=== PATIENT | male | born 1945 | race Caucasian/White ===

== ENCOUNTER 2019-12-17 09:09 | Outpatient (REF) | payer MEDICARE, SELFPAY | END 2019-12-17 09:10 | disposition home or self-care (01) | LOC: HO.LNP 09:09 | PROVIDERS: Visit Provider Internal Medicine | DX: E11.9 Type 2 diabetes mellitus without complications (principal); Z79.899 Other long term (current) drug therapy | CPT/HCPCS: 82947 ==

== ENCOUNTER → 2019-12-17 15:10 | Outpatient (BNVA) | payer MEDICARE, SELFPAY | PROVIDERS: PCP Internal Medicine; Referring Provider Internal Medicine; Visit Provider Internal Medicine | DX: E11.40 Type 2 diabetes mellitus with diabetic neuropathy, unspecified (principal); E11.21 Type 2 diabetes mellitus with diabetic nephropathy; I10 Essential (primary) hypertension; E78.5 Hyperlipidemia, unspecified; R60.0 Localized edema; Z79.84 Long term (current) use of oral hypoglycemic drugs; Z79.899 Other long term (current) drug therapy | CPT/HCPCS: 82947; 99204 ==

== ENCOUNTER 2019-12-22 11:42 | Outpatient (REF) | payer MEDICARE, SELFPAY ==
[2019-12-22 12:47] LABS: INTERNATIONAL NORM RATIO 2.7 (0.9-1.1)
[2019-12-22 14:17] LABS: Alanine Aminotransferase 23 U/L (0-40); Albumin Level 4.1 g/dL (3.5-5.0); Alkaline Phosphatase 68 U/L (39-117); Anion Gap 9 (12-20); Aspartate Amino Transferase 17 U/L (5-37); Bilirubin Total 0.5 mg/dL (0.0-1.0); Blood Urea Nitrogen 18 mg/dL (9-16); Calcium 8.9 mg/dL (8.4-10.2); Carbon Dioxide 37 mmol/L (22-29); Chloride 97 mmol/L (96-108); Estimated Glomerular Filt Rate > 60; Glucose Random 247 mg/dL (60-115); Potassium 4.1 mmol/l (3.3-5.1); Sodium 139 mmol/L (135-145); Total Protein 6.7 g/dL (6.5-8.0)
== END 2019-12-22 11:43 | disposition home or self-care (01) ==
LOC: HO.LAB 11:42
PROVIDERS: Internal Medicine; PCP Internal Medicine; Visit Provider Internal Medicine
DX: I48.0 Paroxysmal atrial fibrillation (principal); Z79.01 Long term (current) use of anticoagulants
CPT/HCPCS: 36415; 80053; 85610

== ENCOUNTER 2020-01-04 10:59 | Outpatient (REF) | payer MEDICARE, SELFPAY ==
[2020-01-04 12:33] LABS: INTERNATIONAL NORM RATIO 2.2 (0.9-1.1); Prothrombin Time 26.8 SEC (10.8-13.0)
[2020-01-04 12:39] LABS: Alanine Aminotransferase 17 U/L (0-40); Albumin Level 4.3 g/dL (3.5-5.0); Alkaline Phosphatase 66 U/L (39-117); Anion Gap 13 (12-20); Aspartate Amino Transferase 16 U/L (5-37); Bilirubin Total 0.3 mg/dL (0.0-1.0); Blood Urea Nitrogen 23 mg/dL (9-16); Calcium 9.4 mg/dL (8.4-10.2); Carbon Dioxide 33 mmol/L (22-29); Chloride 99 mmol/L (96-108); Estimated Glomerular Filt Rate > 60; Glucose Random 188 mg/dL (60-115); Potassium 4.6 mmol/l (3.3-5.1); Sodium 140 mmol/L (135-145); Total Protein 7.2 g/dL (6.5-8.0)
== END 2020-01-04 11:00 | disposition home or self-care (01) ==
LOC: HO.LABR 10:59
PROVIDERS: Internal Medicine; PCP Internal Medicine; Visit Provider Internal Medicine
DX: I48.0 Paroxysmal atrial fibrillation (principal); Z79.01 Long term (current) use of anticoagulants
CPT/HCPCS: 36415; 80053; 85610

== ENCOUNTER → 2020-01-28 13:05 | Outpatient (BNVA) | payer MEDICARE, SELFPAY | PROVIDERS: PCP Internal Medicine; Visit Provider Surgery Vascular Surgery | DX: I83.12 Varicose veins of left lower extremity with inflammation (principal); E11.40 Type 2 diabetes mellitus with diabetic neuropathy, unspecified | CPT/HCPCS: 99202 ==

== ENCOUNTER → 2020-02-02 10:56 | Outpatient (BNVA) | payer MEDICARE, SELFPAY | PROVIDERS: PCP Internal Medicine; Referring Provider Internal Medicine; Visit Provider Dietitian, Registered | DX: Z76.89 Persons encountering health services in other specified circumstances (principal) ==

== ENCOUNTER 2020-02-03 10:18 | Outpatient (REF) | payer MEDICARE, SELFPAY ==
--- NOTE | 2020-02-03 10:23 | US_ITS ---
EXAMINATION: RIGHT and LEFT LOWER EXTREMITY VENOUS ULTRASOUND (Reflux Exam) CLINICAL INDICATION: leg pain and varicose veins. COMPARISON: None. TECHNIQUE: Color flow triplex imaging and compression Doppler was performed to evaluate both the deep and the superficial systems bilaterally. To evaluate the superficial system, the examination was performed in the upright position. Color-flow Doppler ultrasound and compression ultrasound were utilized. In addition, maneuvers were utilized to demonstrate reflux. FINDINGS: 1. DEEP VENOUS ULTRASOUND OF THE RIGHT LOWER EXTREMITY: Respiratory variation, normal compression and augmented flow are noted in the right common femoral vein as well as the right popliteal vein and there is no evidence of deep venous thrombosis at these locations. There is no evidence of reflux in the deep system in either the common femoral vein or the popliteal vein. There is no evidence of a Ruiz's cyst. 2. SUPERFICIAL ULTRASOUND WITH DOPPLER OF RIGHT LOWER EXTREMITY: The right great saphenous vein at the saphenofemoral junction measures 8 mm, at the mid thigh 5 mm, vcvsa-kag-kmax 5 mm, ohori-cyf-uixi 5 mm, at mid calf 3 mm and at the ankle measures 3 mm. There is greater than 2.6 seconds reflux in the right greater saphenous vein at the proximal thigh and below the knee and greater than 2 second reflux in the mid calf. The right small saphenous vein measures 2-4 mm. There is greater than 3 seconds reflux in the mid calf. There is a game artist in the mid calf that measures 4 mm and does not demonstrate reflux. There are varicosities in the mid thigh and proximal calf that measures 3 mm and demonstrate between 2.3 and 2.9 seconds reflux. There is a varicosity in the distal calf off the lesser saphenous vein that measures 4 mm and does not demonstrate reflux. 3. DEEP VENOUS ULTRASOUND OF THE LEFT LOWER EXTREMITY: Respiratory variation, normal compression and augmented flow are noted in the left common femoral vein as well as the left popliteal vein and there is no evidence of deep venous thrombosis at these locations. There is no evidence of reflux in the deep system in either the common femoral vein or the popliteal vein. . There is no evidence of a Ruiz's cyst. 4. SUPERFICIAL ULTRASOUND WITH DOPPLER OF LEFT LOWER EXTREMITY: Left great saphenous vein at the saphenofemoral junction measures 8 mm, at the mid thigh 6 mm, ejpfx-dps-znyn 6 mm, bxxsz-dld-jjch 5 mm, at mid calf for mm and at the ankle measures 3 mm. There is left greater saphenous vein reflux from the saphenofemoral junction to the knee measuring maximum 3 seconds at the knee. The left small saphenous vein measures 2-4 mm and shows no reflux. There is a varicosity in the distal I measures 4 mm and does not demonstrate reflux. There are varicosities at the knee and proximal calf measuring 5 and 3 mm thick the straight greater than 3 seconds reflux. There is a varicosity in the mid calf arising from the lesser saphenous vein that measures 4 mm and does not demonstrate reflux. There is shotty bilateral inguinal lymphadenopathy. US/US venous duplex LE BI IMPRESSION: 1. No evidence of reflux or thrombus in the common femoral veins or popliteal veins bilaterally. 2. Bilateral greater saphenous vein reflux. Right lesser saphenous vein reflux.
== END 2020-02-03 10:19 | disposition home or self-care (01) ==
LOC: HO.US 10:18
PROVIDERS: PCP Internal Medicine; Visit Provider Surgery Vascular Surgery
DX: I83.813 Varicose veins of bilateral lower extremities with pain (principal)
CPT/HCPCS: 93970

== ENCOUNTER 2020-02-08 11:56 | Outpatient (REF) | payer MEDICARE, SELFPAY ==
[2020-02-08 12:36] LABS: INTERNATIONAL NORM RATIO 2.1 (0.9-1.1); Prothrombin Time 24.9 SEC (10.8-13.0)
== END 2020-02-08 11:57 | disposition home or self-care (01) ==
LOC: HO.LABR 11:56
PROVIDERS: PCP Internal Medicine; Visit Provider Internal Medicine
DX: I48.0 Paroxysmal atrial fibrillation (principal); Z79.01 Long term (current) use of anticoagulants
CPT/HCPCS: 36415; 85610

== ENCOUNTER → 2020-02-19 13:56 | Outpatient (BNVA) | payer MEDICARE, SELFPAY | PROVIDERS: PCP Internal Medicine; Referring Provider Internal Medicine; Visit Provider Internal Medicine Endocrinology, Diabetes & Metabolism | DX: Z76.89 Persons encountering health services in other specified circumstances (principal) ==

== ENCOUNTER → 2020-02-23 12:51 | Outpatient (BNVA) | payer MEDICARE, SELFPAY | PROVIDERS: PCP Internal Medicine; Visit Provider Surgery Vascular Surgery | DX: I83.12 Varicose veins of left lower extremity with inflammation (principal) | CPT/HCPCS: 99212 ==

== ENCOUNTER 2020-03-23 09:00 | Outpatient (REF) | payer MEDICARE, SELFPAY ==
[2020-03-23 10:17] LABS: INTERNATIONAL NORM RATIO 2.5 (0.9-1.1); Prothrombin Time 29.5 SEC (10.8-13.0)
[2020-03-23 10:32] LABS: Glucose Fasting 169 mg/dL (60-99)
[2020-03-23 10:56] LABS: Estimated Average Glucose 237 mg/dL; Hemoglobin A1c % 9.9 %
== END 2020-03-23 09:01 | disposition home or self-care (01) ==
LOC: HO.LABR 09:00
PROVIDERS: PCP Internal Medicine; Visit Provider Internal Medicine
DX: E11.40 Type 2 diabetes mellitus with diabetic neuropathy, unspecified (principal); Z79.01 Long term (current) use of anticoagulants
CPT/HCPCS: 36415; 82947; 83036; 85610

== ENCOUNTER 2020-06-30 10:17 | Outpatient (REF) | payer MEDICARE, SELFPAY ==
[2020-06-30 10:47] LABS: INTERNATIONAL NORM RATIO 2.4 (0.9-1.1); Prothrombin Time 28.4 SEC (10.8-13.0)
== END 2020-06-30 10:18 | disposition home or self-care (01) ==
LOC: HO.LNP 10:17
PROVIDERS: Visit Provider Internal Medicine
DX: I48.0 Paroxysmal atrial fibrillation (principal); Z79.01 Long term (current) use of anticoagulants
CPT/HCPCS: 85610

== ENCOUNTER 2020-07-07 13:48 | Outpatient (REF) | payer MEDICARE, SELFPAY ==
[2020-07-07 14:13] LABS: INTERNATIONAL NORM RATIO 2.1 (0.9-1.1); Prothrombin Time 24.8 SEC (10.8-13.0)
== END 2020-07-07 13:49 | disposition home or self-care (01) ==
LOC: HO.LNP 13:48
PROVIDERS: Visit Provider Internal Medicine
DX: I48.0 Paroxysmal atrial fibrillation (principal); Z79.01 Long term (current) use of anticoagulants
CPT/HCPCS: 85610

== ENCOUNTER → 2020-07-11 07:32 | Outpatient (BNVA) | payer MEDICARE, SELFPAY | PROVIDERS: PCP Internal Medicine; Visit Provider Internal Medicine | CPT/HCPCS: Q3014 ==

== ENCOUNTER 2020-07-19 08:24 | Outpatient (REF) | payer MEDICARE, SELFPAY ==
--- NOTE | ~2020-07-19 | XR_ITS ---
EXAMINATION: XR SHOULDER, LEFT CLINICAL INFORMATION: Pain COMPARISON: None TECHNIQUE: Three views of the left shoulder. FINDINGS: Bone alignment is normal. No fracture or dislocation is seen. The glenohumeral joint is normal. 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 There is an undersurface acromial osteophyte. XR/XR shoulder LT min 2V IMPRESSION: Arthritis at the acromioclavicular joint and undersurface acromial osteophyte.
== END 2020-07-19 08:25 | disposition home or self-care (01) ==
LOC: HO.HOSX 08:24
PROVIDERS: Visit Provider Physician Assistant
DX: M75.42 Impingement syndrome of left shoulder (principal)
CPT/HCPCS: 73030; 99202

== ENCOUNTER 2020-07-28 09:21 | Outpatient (RCR) | payer MEDICARE, SELFPAY | END 2020-08-17 12:19 | disposition home or self-care (01) | LOC: HO.WCC 09:21 | PROVIDERS: Visit Provider Surgery | DX: E11.628 Type 2 diabetes mellitus with other skin complications (principal); L30.4 Erythema intertrigo; I10 Essential (primary) hypertension | CPT/HCPCS: 99211; 99213 ==

== ENCOUNTER 2020-07-28 15:43 | Outpatient (REF) | payer MEDICARE, SELFPAY ==
[2020-07-28 15:59] LABS: INTERNATIONAL NORM RATIO 1.9 (0.9-1.1)
== END 2020-07-28 15:44 | disposition home or self-care (01) ==
LOC: HO.LNP 15:43
PROVIDERS: Visit Provider Internal Medicine
DX: I48.0 Paroxysmal atrial fibrillation (principal); Z79.01 Long term (current) use of anticoagulants
CPT/HCPCS: 85610

== ENCOUNTER 2020-08-05 10:13 | Outpatient (REF) | payer MEDICARE, SELFPAY ==
[2020-08-05 11:30] LABS: Creatinine Urine 78.26 mg/dL; Microalbum/Creatinine Ratio Ur 11.5 ug/mg cr
[2020-08-05 11:37] LABS: Alanine Aminotransferase 13 U/L (0-40); Albumin Level 4.2 g/dL (3.5-5.0); Alkaline Phosphatase 53 U/L (39-117); Anion Gap 9 (12-20); Aspartate Amino Transferase 15 U/L (5-37); Bilirubin Total 0.5 mg/dL (0.0-1.0); Blood Urea Nitrogen 23 mg/dL (9-16); Calcium 9.4 mg/dL (8.4-10.2); Carbon Dioxide 34 mmol/L (22-29); Chloride 103 mmol/L (96-108); Cholesterol 164 mg/dL; Estimated Glomerular Filt Rate > 60; Glucose Random 125 mg/dL (60-115); HDL Cholesterol 46 mg/dL; LDL Cholesterol Calculated 94 mg/dl; Potassium 4.1 mmol/L (3.3-5.1); Sodium 142 mmol/L (135-145); Total Protein 6.6 g/dL (6.5-8.0); Triglycerides 124 mg/dL
[2020-08-05 11:40] LABS: Estimated Average Glucose 137 mg/dL; Hemoglobin A1c % 6.4 %
[2020-08-05 11:59] LABS: Vitamin D 25-OH Total 17.6 ng/mL (>30)
[2020-08-06 07:31] LABS: LDL Cholesterol Direct 93 mg/dL (<100)
== END 2020-08-05 10:14 | disposition home or self-care (01) ==
LOC: HO.LAB 10:13
PROVIDERS: PCP Internal Medicine; Visit Provider Internal Medicine
DX: E11.65 Type 2 diabetes mellitus with hyperglycemia (principal); E55.9 Vitamin D deficiency, unspecified
CPT/HCPCS: 36415; 80053; 80061; 82043; 82306; 83036; 83721

== ENCOUNTER 2020-08-11 10:06 | Outpatient (REF) | payer MEDICARE, SELFPAY ==
[2020-08-11 10:26] LABS: INTERNATIONAL NORM RATIO 2.1 (0.9-1.1); Prothrombin Time 24.7 SEC (10.8-13.0)
== END 2020-08-11 10:07 | disposition home or self-care (01) ==
LOC: HO.LNP 10:06
PROVIDERS: Visit Provider Internal Medicine
DX: I48.0 Paroxysmal atrial fibrillation (principal); Z79.01 Long term (current) use of anticoagulants
CPT/HCPCS: 85610

== ENCOUNTER → 2020-08-23 08:50 | Outpatient (BNVA) | payer MEDICARE, SELFPAY | PROVIDERS: PCP Internal Medicine; Visit Provider Surgery Vascular Surgery | DX: I83.12 Varicose veins of left lower extremity with inflammation (principal) | CPT/HCPCS: 99212 ==

== ENCOUNTER 2020-09-08 10:06 | Outpatient (REF) | payer MEDICARE, SELFPAY ==
[2020-09-08 10:21] LABS: INTERNATIONAL NORM RATIO 2.1 (0.9-1.1); Prothrombin Time 24.9 SEC (10.8-13.0)
[2020-09-08 10:25] LABS: Basophils Absolute Auto 0.1 X10*3/uL (0.0-0.2); Basophils Percent Auto 0.5 % (0-2); Eosinophils Absolute Auto 0.2 X10*3/uL (0.0-0.4); Eosinophils Percent Auto 1.7 % (0-4); Hematocrit 45.5 % (42-52); Hemoglobin 14.9 g/dl (14.0-18.0); Imm Gran Abs Auto 0.02 X10*3/uL (0.00-0.03); Imm Gran Pct Auto 0.2 % (0.0-0.4); Lymphocytes Absolute Auto 2.9 X10*3/uL (1.2-4.9); Lymphocytes Percent Auto 31.5 % (20-40); MANUAL DIFF FLAG SCAN; Mean Corpuscular HGB Conc 32.7 g/dl (31.0-36.0); Mean Corpuscular Hemoglobin 32.1 pg (27.0-33.0); Mean Corpuscular Volume 98.1 fL (80-98); Mean Platelet Volume 11.2 fL (9.4-12.4); Monocytes Absolute Auto 0.7 X10*3/uL (0.1-1.2); Neutrophils Absolute Auto 5.5 X10*3/uL (2.0-8.3); Neutrophils Percent Auto 59.1 % (45-73); PLT CLUMP 1; Red Blood Count 4.64 X10*6/uL (4.60-5.80); Red Cell Distribution Width 13.1 % (11.0-16.0); SCAN SMEAR FLAG 1
[2020-09-08 10:28] LABS: Platelet Count 128 X10*3/uL (160-400); White Blood Count 9.3 X10*3/uL (4.8-10.8)
[2020-09-08 10:33] LABS: Estimated Average Glucose 137 mg/dL; Hemoglobin A1c % 6.4 %
[2020-09-08 10:52] LABS: SLIDE REVIEW VERIFIED
[2020-09-08 10:53] LABS: Alanine Aminotransferase 12 U/L (0-40); Albumin Level 4.2 g/dL (3.5-5.0); Alkaline Phosphatase 59 U/L (39-117); Anion Gap 11 (12-20); Aspartate Amino Transferase 16 U/L (5-37); Bilirubin Total 0.6 mg/dL (0.0-1.0); Blood Urea Nitrogen 27 mg/dL (9-16); Calcium 9.3 mg/dL (8.4-10.2); Carbon Dioxide 32 mmol/L (22-29); Chloride 102 mmol/L (96-108); Cholesterol 152 mg/dL; Estimated Glomerular Filt Rate > 60; Glucose Fasting 127 mg/dL (60-99); HDL Cholesterol 41 mg/dL; LDL Cholesterol Calculated 85 mg/dl; Potassium 4.2 mmol/L (3.3-5.1); Sodium 141 mmol/L (135-145); Total Protein 6.7 g/dL (6.5-8.0); Triglycerides 132 mg/dL
[2020-09-08 11:08] LABS: PSA,Total (Free>4and<10) 0.95 ng/mL (0.00-4.00)
[2020-09-08 12:45] LABS: Reflex LDLD? No
== END 2020-09-08 10:07 | disposition home or self-care (01) ==
LOC: HO.LNP 10:06
PROVIDERS: Visit Provider Internal Medicine
DX: E11.40 Type 2 diabetes mellitus with diabetic neuropathy, unspecified (principal); I48.0 Paroxysmal atrial fibrillation; Z79.01 Long term (current) use of anticoagulants; E78.2 Mixed hyperlipidemia
CPT/HCPCS: 80053; 80061; 83036; 84153; 85025; 85610

== ENCOUNTER 2020-09-22 10:07 | Outpatient (REF) | payer MEDICARE, SELFPAY ==
[2020-09-22 11:23] LABS: INTERNATIONAL NORM RATIO 1.8 (0.9-1.1); Prothrombin Time 20.9 SEC (9.9-13.0)
== END 2020-09-22 10:08 | disposition home or self-care (01) ==
LOC: HO.LNP 10:07
PROVIDERS: Visit Provider Internal Medicine
DX: I48.0 Paroxysmal atrial fibrillation (principal); Z79.01 Long term (current) use of anticoagulants
CPT/HCPCS: 85610

== ENCOUNTER 2020-09-29 10:18 | Outpatient (REF) | payer MEDICARE, SELFPAY ==
[2020-09-29 10:37] LABS: INTERNATIONAL NORM RATIO 1.9 (0.9-1.1); Prothrombin Time 22.3 SEC (9.9-13.0)
== END 2020-09-29 10:19 | disposition home or self-care (01) ==
LOC: HO.LNP 10:18
PROVIDERS: Visit Provider Internal Medicine
DX: I48.0 Paroxysmal atrial fibrillation (principal); Z79.01 Long term (current) use of anticoagulants; Z51.81 Encounter for therapeutic drug level monitoring
CPT/HCPCS: 85610

== ENCOUNTER 2020-10-07 10:23 | Outpatient (REF) | payer MEDICARE, SELFPAY ==
[2020-10-07 10:50] LABS: Blood Urea Nitrogen 29 mg/dL (9-16); Estimated Glomerular Filt Rate > 60; Prothrombin Time 23.4 SEC (9.9-13.0)
== END 2020-10-07 10:24 | disposition home or self-care (01) ==
LOC: HO.LNP 10:23
PROVIDERS: Visit Provider Internal Medicine
DX: I48.0 Paroxysmal atrial fibrillation (principal); R79.9 Abnormal finding of blood chemistry, unspecified; Z79.01 Long term (current) use of anticoagulants
CPT/HCPCS: 82565; 84520; 85610

== ENCOUNTER → 2020-10-10 07:48 | Outpatient (BNVA) | payer MEDICARE, SELFPAY | PROVIDERS: PCP Internal Medicine; Visit Provider Internal Medicine | DX: E11.65 Type 2 diabetes mellitus with hyperglycemia (principal); I10 Essential (primary) hypertension; E78.5 Hyperlipidemia, unspecified; E55.9 Vitamin D deficiency, unspecified | CPT/HCPCS: 82947; 99212 ==

== ENCOUNTER 2020-10-28 10:35 | Outpatient (REF) | payer MEDICARE, SELFPAY ==
[2020-10-28 10:53] LABS: INTERNATIONAL NORM RATIO 2.2 (0.9-1.1); Prothrombin Time 24.9 SEC (9.9-13.0)
== END 2020-10-28 10:36 | disposition home or self-care (01) ==
LOC: HO.LNP 10:35
PROVIDERS: Visit Provider Internal Medicine
DX: I48.0 Paroxysmal atrial fibrillation (principal); Z79.01 Long term (current) use of anticoagulants; Z51.81 Encounter for therapeutic drug level monitoring
CPT/HCPCS: 85610

== ENCOUNTER 2020-11-28 10:54 | Outpatient (REF) | payer MEDICARE, SELFPAY ==
[2020-11-28 11:10] LABS: INTERNATIONAL NORM RATIO 2.6 (0.9-1.1); Prothrombin Time 29.6 SEC (9.9-13.0)
== END 2020-11-28 10:55 | disposition home or self-care (01) ==
LOC: HO.LNP 10:54
PROVIDERS: Visit Provider Internal Medicine
DX: I48.0 Paroxysmal atrial fibrillation (principal); Z79.01 Long term (current) use of anticoagulants
CPT/HCPCS: 85610

== ENCOUNTER 2020-12-15 10:13 | Outpatient (REF) | payer MEDICARE, SELFPAY ==
[2020-12-15 10:30] LABS: INTERNATIONAL NORM RATIO 2.2 (0.9-1.1); Prothrombin Time 25.7 SEC (9.9-13.0)
[2020-12-15 10:37] LABS: Blood Urea Nitrogen 27 mg/dL (9-16)
== END 2020-12-15 10:14 | disposition home or self-care (01) ==
LOC: HO.LNP 10:13
PROVIDERS: Visit Provider Internal Medicine
DX: I48.0 Paroxysmal atrial fibrillation (principal); R79.89 Other specified abnormal findings of blood chemistry; Z79.01 Long term (current) use of anticoagulants
CPT/HCPCS: 84520; 85610

== ENCOUNTER 2020-12-29 10:17 | Outpatient (REF) | payer MEDICARE, SELFPAY ==
[2020-12-29 10:28] LABS: INTERNATIONAL NORM RATIO 1.9 (0.9-1.1); Prothrombin Time 21.5 SEC (9.9-13.0)
== END 2020-12-29 10:18 | disposition home or self-care (01) ==
LOC: HO.LNP 10:17
PROVIDERS: Visit Provider Internal Medicine
DX: I48.0 Paroxysmal atrial fibrillation (principal); Z79.01 Long term (current) use of anticoagulants
CPT/HCPCS: 85610

== ENCOUNTER 2021-01-19 10:34 | Outpatient (REF) | payer MEDICARE, SELFPAY ==
[2021-01-19 10:47] LABS: INTERNATIONAL NORM RATIO 2.1 (0.9-1.1); Prothrombin Time 24.7 SEC (9.9-13.0)
== END 2021-01-19 10:35 | disposition home or self-care (01) ==
LOC: HO.LNP 10:34
PROVIDERS: Visit Provider Internal Medicine
DX: I48.0 Paroxysmal atrial fibrillation (principal); Z79.01 Long term (current) use of anticoagulants
CPT/HCPCS: 85610

== ENCOUNTER 2021-02-02 10:40 | Outpatient (REF) | payer MEDICARE, SELFPAY ==
[2021-02-02 11:04] LABS: Blood Urea Nitrogen 24 mg/dL (9-16)
[2021-02-02 11:05] LABS: INTERNATIONAL NORM RATIO 2.2 (0.9-1.1)
== END 2021-02-02 10:41 | disposition home or self-care (01) ==
LOC: HO.LNP 10:40
PROVIDERS: Visit Provider Internal Medicine
DX: R79.9 Abnormal finding of blood chemistry, unspecified (principal); Z79.01 Long term (current) use of anticoagulants
CPT/HCPCS: 84520; 85610

== ENCOUNTER 2021-02-28 10:29 | Outpatient (REF) | payer MEDICARE, SELFPAY | END 2021-02-28 10:30 | disposition home or self-care (01) | LOC: HO.LNP 10:29 | PROVIDERS: PCP Internal Medicine; Visit Provider Internal Medicine | DX: I48.0 Paroxysmal atrial fibrillation (principal); Z79.01 Long term (current) use of anticoagulants | CPT/HCPCS: 85610 ==

== ENCOUNTER 2021-03-01 07:41 | Outpatient (REF) | payer MEDICARE, SELFPAY ==
[2021-03-01 09:04] LABS: Alanine Aminotransferase 14 U/L (0-40); Albumin Level 4.4 g/dL (3.5-5.0); Alkaline Phosphatase 57 U/L (39-117); Anion Gap 13 (12-20); Aspartate Amino Transferase 15 U/L (5-37); Bilirubin Total 0.5 mg/dL (0.0-1.0); Blood Urea Nitrogen 31 mg/dL (9-16); Calcium 9.6 mg/dL (8.4-10.2); Carbon Dioxide 30 mmol/L (22-29); Chloride 100 mmol/L (96-108); Estimated Glomerular Filt Rate > 60; Glucose Random 141 mg/dL (60-115); Potassium 3.9 mmol/L (3.3-5.1); Sodium 139 mmol/L (135-145); Total Protein 7.1 g/dL (6.5-8.0)
[2021-03-01 09:25] LABS: Estimated Average Glucose 151 mg/dL; Hemoglobin A1c % 6.9 %
== END 2021-03-01 07:42 | disposition home or self-care (01) ==
LOC: HO.LAB 07:41
PROVIDERS: PCP Internal Medicine; Visit Provider Internal Medicine
DX: E11.65 Type 2 diabetes mellitus with hyperglycemia (principal)
CPT/HCPCS: 36415; 80053; 83036

== ENCOUNTER → 2021-03-02 07:22 | Outpatient (BNVA) | payer MEDICARE, SELFPAY | PROVIDERS: PCP Internal Medicine; Visit Provider Internal Medicine | DX: E11.65 Type 2 diabetes mellitus with hyperglycemia (principal); E78.5 Hyperlipidemia, unspecified; E55.9 Vitamin D deficiency, unspecified; I10 Essential (primary) hypertension | CPT/HCPCS: 82947; 99212 ==

== ENCOUNTER 2021-03-14 14:28 | Outpatient (REF) | payer MEDICARE, SELFPAY ==
[2021-03-14 14:42] LABS: INTERNATIONAL NORM RATIO 1.8 (0.9-1.1); Prothrombin Time 20.4 SEC (9.9-13.0)
[2021-03-14 15:06] LABS: Blood Urea Nitrogen 29 mg/dL (9-16); Estimated Glomerular Filt Rate > 60
== END 2021-03-14 14:29 | disposition home or self-care (01) ==
LOC: HO.LNP 14:28
PROVIDERS: Visit Provider Internal Medicine
DX: R79.9 Abnormal finding of blood chemistry, unspecified (principal); Z79.01 Long term (current) use of anticoagulants
CPT/HCPCS: 82565; 84520; 85610

== ENCOUNTER 2021-03-23 10:17 | Outpatient (REF) | payer MEDICARE, SELFPAY ==
[2021-03-23 11:07] LABS: Estimated Average Glucose 151 mg/dL; Hemoglobin A1c % 6.9 %
[2021-03-23 11:08] LABS: INTERNATIONAL NORM RATIO 2.5 (0.9-1.1); Prothrombin Time 28.6 SEC (9.9-13.0)
[2021-03-23 11:15] LABS: Alanine Aminotransferase 17 U/L (0-40); Albumin Level 4.3 g/dL (3.5-5.0); Alkaline Phosphatase 53 U/L (39-117); Aspartate Amino Transferase 15 U/L (5-37); Bilirubin Direct 0.2 mg/dL (0.0-0.5); Bilirubin Total 0.4 mg/dL (0.0-1.0); Cholesterol 198 mg/dL; Glucose Fasting 147 mg/dL (60-99); HDL Cholesterol 42 mg/dL; LDL Cholesterol Calculated 115 mg/dl; Triglycerides 207 mg/dL
[2021-03-23 12:56] LABS: Reflex LDLD? No
== END 2021-03-23 10:18 | disposition home or self-care (01) ==
LOC: HO.LNP 10:17
PROVIDERS: Visit Provider Internal Medicine
DX: I48.0 Paroxysmal atrial fibrillation (principal); E11.40 Type 2 diabetes mellitus with diabetic neuropathy, unspecified; E78.2 Mixed hyperlipidemia; Z79.01 Long term (current) use of anticoagulants
CPT/HCPCS: 80061; 80076; 82947; 83036; 85610

== ENCOUNTER 2021-03-28 10:33 | Outpatient (REF) | payer MEDICARE, SELFPAY ==
[2021-03-28 10:53] LABS: Prothrombin Time 35.2 SEC (9.9-13.0)
[2021-03-28 11:51] LABS: Blood Urea Nitrogen 26 mg/dL (9-16); Estimated Glomerular Filt Rate > 60
== END 2021-03-28 10:34 | disposition home or self-care (01) ==
LOC: HO.LNP 10:33
PROVIDERS: Visit Provider Internal Medicine
DX: R79.9 Abnormal finding of blood chemistry, unspecified (principal); Z79.01 Long term (current) use of anticoagulants
CPT/HCPCS: 82565; 84520; 85610

== ENCOUNTER 2021-07-04 10:22 | Outpatient (REF) | payer MEDICARE, SELFPAY ==
[2021-07-04 10:45] LABS: INTERNATIONAL NORM RATIO 2.3 (0.9-1.1); Prothrombin Time 26.9 SEC (9.9-13.0)
== END 2021-07-04 10:23 | disposition home or self-care (01) ==
LOC: HO.LNP 10:22
PROVIDERS: Visit Provider Internal Medicine
DX: I48.0 Paroxysmal atrial fibrillation (principal); Z79.01 Long term (current) use of anticoagulants
CPT/HCPCS: 85610

== ENCOUNTER 2021-07-12 07:28 | Outpatient (REF) | payer MEDICARE, SELFPAY ==
[2021-07-12 08:20] LABS: Estimated Average Glucose 143 mg/dL; Hemoglobin A1c % 6.6 %
[2021-07-12 08:47] LABS: Alanine Aminotransferase 16 U/L (0-40); Albumin Level 4.4 g/dL (3.5-5.0); Alkaline Phosphatase 53 U/L (39-117); Anion Gap 12 (12-20); Aspartate Amino Transferase 18 U/L (5-37); Bilirubin Total 0.6 mg/dL (0.0-1.0); Blood Urea Nitrogen 24 mg/dL (9-16); Calcium 9.9 mg/dL (8.4-10.2); Carbon Dioxide 33 mmol/L (22-29); Chloride 101 mmol/L (96-108); Cholesterol 178 mg/dL; Estimated Glomerular Filt Rate > 60; Glucose Random 154 mg/dL (60-115); HDL Cholesterol 44 mg/dL; LDL Cholesterol Calculated 98 mg/dl; Potassium 4.6 mmol/L (3.3-5.1); Sodium 141 mmol/L (135-145); Triglycerides 184 mg/dL
[2021-07-12 09:08] LABS: Vitamin D 25-OH Total 29.5 ng/mL (>30)
[2021-07-12 10:06] LABS: Creatinine Urine 129.62 mg/dL; Microalbum/Creatinine Ratio Ur 16.2 ug/mg cr
[2021-07-14 01:41] LABS: LDL Cholesterol Direct 97 mg/dL (<100)
== END 2021-07-12 07:29 | disposition home or self-care (01) ==
LOC: HO.LAB 07:28
PROVIDERS: PCP Internal Medicine; Visit Provider Internal Medicine
DX: E11.65 Type 2 diabetes mellitus with hyperglycemia (principal); E55.9 Vitamin D deficiency, unspecified
CPT/HCPCS: 36415; 80053; 80061; 82043; 82306; 83036; 83721

== ENCOUNTER → 2021-07-13 13:04 | Outpatient (BNVA) | payer MEDICARE, SELFPAY | PROVIDERS: PCP Internal Medicine; Visit Provider Internal Medicine | DX: E11.65 Type 2 diabetes mellitus with hyperglycemia (principal); E78.5 Hyperlipidemia, unspecified; I10 Essential (primary) hypertension; E55.9 Vitamin D deficiency, unspecified; Z79.4 Long term (current) use of insulin; Z79.899 Other long term (current) drug therapy | CPT/HCPCS: Q3014 ==

== ENCOUNTER 2021-07-20 10:58 | Outpatient (REF) | payer MEDICARE, SELFPAY ==
[2021-07-20 11:34] LABS: INTERNATIONAL NORM RATIO 1.9 (0.9-1.1)
== END 2021-07-20 10:59 | disposition home or self-care (01) ==
LOC: HO.LNP 10:58
PROVIDERS: PCP Internal Medicine; Visit Provider Internal Medicine
DX: I48.0 Paroxysmal atrial fibrillation (principal); Z79.01 Long term (current) use of anticoagulants
CPT/HCPCS: 85610

== ENCOUNTER 2021-08-11 11:08 | Outpatient (REF) | payer MEDICARE, SELFPAY ==
[2021-08-11 11:25] LABS: INTERNATIONAL NORM RATIO 2.9 (0.9-1.1); Prothrombin Time 33.5 SEC (9.9-13.0)
== END 2021-08-11 11:09 | disposition home or self-care (01) ==
LOC: HO.LNP 11:08
PROVIDERS: Visit Provider Internal Medicine
DX: I48.0 Paroxysmal atrial fibrillation (principal); Z79.01 Long term (current) use of anticoagulants
CPT/HCPCS: 85610

== ENCOUNTER 2021-09-19 11:55 | Outpatient (REF) | payer MEDICARE, SELFPAY ==
[2021-09-19 12:09] LABS: Appearance Urine CLEAR; Color Urine YELLOW; Glucose Urine UA NEG (NEG); Leukocyte Esterase Urine NEG (NEG); Nitrite Urine NEG (NEG); Urine Blood NEG (NEG); Urine Ketones NEG (NEG); Urine Protein NEG (NEG-TRACE)
[2021-09-19 12:10] LABS: Basophils Percent Auto 0.5 % (0-2); Eosinophils Absolute Auto 0.2 X10*3/uL (0.0-0.4); Eosinophils Percent Auto 1.8 % (0-4); Hemoglobin 14.9 g/dl (14.0-18.0); Imm Gran Abs Auto 0.02 X10*3/uL (0.00-0.03); Imm Gran Pct Auto 0.2 % (0.0-0.4); Lymphocytes Absolute Auto 2.5 X10*3/uL (1.2-4.9); Lymphocytes Percent Auto 29.1 % (20-40); MANUAL DIFF FLAG SCAN; Mean Corpuscular HGB Conc 33.1 g/dl (31.0-36.0); Mean Corpuscular Hemoglobin 32.7 pg (27.0-33.0); Mean Corpuscular Volume 98.7 fL (80.0-98.0); Monocytes Absolute Auto 0.6 X10*3/uL (0.1-1.2); Monocytes Percent Auto 7.3 % (2-11); Neutrophils Absolute Auto 5.2 x10*3/uL (2.0-8.3); Neutrophils Percent Auto 61.1 % (45-73); PLT CLUMP 1; Red Blood Count 4.56 X10*6/uL (4.60-5.80); Red Cell Distribution Width 13.3 % (11.0-16.0); SCAN SMEAR FLAG 1
[2021-09-19 12:23] LABS: INTERNATIONAL NORM RATIO 1.9 (0.9-1.1); Prothrombin Time 22.9 SEC (10.0-13.1)
[2021-09-19 12:32] LABS: White Blood Count 8.5 X10*3/uL (4.8-10.8)
[2021-09-19 12:33] LABS: Platelet Count 96 X10*3/uL (160-400); SLIDE REVIEW VERIFIED
[2021-09-19 12:43] LABS: RBC Urine 0 /HPF (0); Squamous Epithelial Cell Urine TRACE /LPF; Urine Talc Crystals 1+ /LPF; WBC Urine 0 /HPF (0-4)
[2021-09-19 13:01] LABS: Alanine Aminotransferase 13 U/L (0-40); Albumin Level 4.2 g/dL (3.5-5.0); Alkaline Phosphatase 48 U/L (39-117); Anion Gap 11 (12-20); Aspartate Amino Transferase 16 U/L (5-37); Bilirubin Total 0.4 mg/dL (0.0-1.0); Blood Urea Nitrogen 22 mg/dL (9-16); Calcium 8.7 mg/dL (8.4-10.2); Carbon Dioxide 29 mmol/L (22-29); Chloride 104 mmol/L (96-108); Cholesterol 154 mg/dL; Estimated Glomerular Filt Rate > 60; Glucose Fasting 147 mg/dL (60-99); HDL Cholesterol 40 mg/dL; LDL Cholesterol Calculated 84 mg/dl; Sodium 140 mmol/L (135-145); Total Protein 6.5 g/dL (6.5-8.0); Triglycerides 150 mg/dL
[2021-09-19 13:04] LABS: PSA,Total (Free>4and<10) 0.78 ng/mL (0.00-4.00)
[2021-09-19 13:46] LABS: Estimated Average Glucose 140 mg/dL; Hemoglobin A1c % 6.5 %
[2021-09-19 14:09] LABS: Creatinine Urine 114.33 mg/dL; Microalbum/Creatinine Ratio Ur 13.9 ug/mg cr
== END 2021-09-19 11:56 | disposition home or self-care (01) ==
LOC: HO.LNP 11:55
PROVIDERS: PCP Internal Medicine; Visit Provider Internal Medicine
DX: E78.2 Mixed hyperlipidemia (principal); I10 Essential (primary) hypertension; E11.40 Type 2 diabetes mellitus with diabetic neuropathy, unspecified; D69.6 Thrombocytopenia, unspecified; I48.0 Paroxysmal atrial fibrillation; Z79.01 Long term (current) use of anticoagulants; Z12.5 Encounter for screening for malignant neoplasm of prostate
CPT/HCPCS: 80053; 80061; 81001; 82043; 83036; 84153; 85025; 85610

== ENCOUNTER 2021-10-14 08:12 | Outpatient (REF) | payer MEDICARE, SELFPAY ==
[2021-10-14 08:43] LABS: Estimated Average Glucose 140 mg/dL; Hemoglobin A1c % 6.5 %
[2021-10-14 09:04] LABS: Alanine Aminotransferase 20 U/L (0-40); Albumin Level 4.3 g/dL (3.5-5.0); Alkaline Phosphatase 52 U/L (39-117); Anion Gap 13 (12-20); Aspartate Amino Transferase 16 U/L (5-37); Bilirubin Total 0.4 mg/dL (0.0-1.0); Blood Urea Nitrogen 20 mg/dL (9-16); Calcium 9.1 mg/dL (8.4-10.2); Carbon Dioxide 30 mmol/L (22-29); Chloride 103 mmol/L (96-108); Estimated Glomerular Filt Rate > 60; Glucose Random 171 mg/dL (60-115); Potassium 4.4 mmol/L (3.3-5.1); Sodium 142 mmol/L (135-145); Total Protein 6.8 g/dL (6.5-8.0)
[2021-10-14 09:26] LABS: Vitamin D 25-OH Total 28.8 ng/mL (>30)
== END 2021-10-14 08:13 | disposition home or self-care (01) ==
LOC: HO.LAB 08:12
PROVIDERS: PCP Internal Medicine; Visit Provider Internal Medicine
DX: E11.65 Type 2 diabetes mellitus with hyperglycemia (principal); E55.9 Vitamin D deficiency, unspecified
CPT/HCPCS: 36415; 80053; 82306; 83036

== ENCOUNTER → 2021-10-16 14:07 | Outpatient (BNVA) | payer MEDICARE, SELFPAY | PROVIDERS: PCP Internal Medicine; Visit Provider Internal Medicine | DX: E11.65 Type 2 diabetes mellitus with hyperglycemia (principal); E78.5 Hyperlipidemia, unspecified; I10 Essential (primary) hypertension; E55.9 Vitamin D deficiency, unspecified | CPT/HCPCS: 82947; 99212 ==

== ENCOUNTER 2021-10-26 10:38 | Outpatient (REF) | payer MEDICARE, SELFPAY ==
[2021-10-26 12:06] LABS: INTERNATIONAL NORM RATIO 2.2 (0.9-1.1); Prothrombin Time 25.5 SEC (10.0-13.1)
== END 2021-10-26 10:39 | disposition home or self-care (01) ==
LOC: HO.LNP 10:38
PROVIDERS: Visit Provider Internal Medicine
DX: D69.6 Thrombocytopenia, unspecified (principal); I48.0 Paroxysmal atrial fibrillation; Z79.01 Long term (current) use of anticoagulants
CPT/HCPCS: 85610

== ENCOUNTER 2021-10-27 13:21 | Outpatient (REF) | payer MEDICARE, SELFPAY ==
[2021-10-27 13:25] LABS: MANUAL DIFF FLAG NO
[2021-10-27 13:35] LABS: Basophils Absolute Auto 0.1 X10*3/uL (0.0-0.2); Basophils Percent Auto 0.6 % (0-2); Eosinophils Absolute Auto 0.2 X10*3/uL (0.0-0.4); Eosinophils Percent Auto 1.7 % (0-4); Hematocrit 44.7 % (42.0-52.0); Hemoglobin 15.1 g/dl (14.0-18.0); Imm Gran Abs Auto 0.04 X10*3/uL (0.00-0.03); Imm Gran Pct Auto 0.4 % (0.0-0.4); Lymphocytes Absolute Auto 3.1 X10*3/uL (1.2-4.9); Lymphocytes Percent Auto 30.2 % (20-40); Mean Corpuscular HGB Conc 33.8 g/dl (31.0-36.0); Mean Corpuscular Volume 97.8 fL (80.0-98.0); Mean Platelet Volume 11.7 fL (9.4-12.4); Monocytes Absolute Auto 0.8 X10*3/uL (0.1-1.2); Monocytes Percent Auto 8.1 % (2-11); Neutrophils Absolute Auto 6.1 x10*3/uL (2.0-8.3); Red Blood Count 4.57 X10*6/uL (4.60-5.80); Red Cell Distribution Width 13.3 % (11.0-16.0); White Blood Count 10.3 X10*3/uL (4.8-10.8)
[2021-10-27 13:43] LABS: Platelet Count 70 X10*3/uL (160-400)
== END 2021-10-27 13:22 | disposition home or self-care (01) ==
LOC: HO.LNP 13:21
PROVIDERS: Visit Provider Internal Medicine
DX: D69.6 Thrombocytopenia, unspecified (principal)
CPT/HCPCS: 85025

== ENCOUNTER 2021-10-31 10:40 | Outpatient (REF) | payer MEDICARE, SELFPAY ==
[2021-10-31 10:54] LABS: Basophils Absolute Auto 0.1 X10*3/uL (0.0-0.2); Basophils Percent Auto 0.6 % (0-2); Eosinophils Absolute Auto 0.2 X10*3/uL (0.0-0.4); Eosinophils Percent Auto 2.1 % (0-4); Hematocrit 44.4 % (42.0-52.0); Hemoglobin 14.8 g/dl (14.0-18.0); Imm Gran Abs Auto 0.02 X10*3/uL (0.00-0.03); Imm Gran Pct Auto 0.2 % (0.0-0.4); Lymphocytes Absolute Auto 2.7 X10*3/uL (1.2-4.9); Lymphocytes Percent Auto 29.7 % (20-40); MANUAL DIFF FLAG SCAN; Mean Corpuscular HGB Conc 33.3 g/dl (31.0-36.0); Mean Corpuscular Hemoglobin 32.4 pg (27.0-33.0); Mean Corpuscular Volume 97.2 fL (80.0-98.0); Monocytes Absolute Auto 0.7 X10*3/uL (0.1-1.2); Monocytes Percent Auto 7.5 % (2-11); Neutrophils Absolute Auto 5.4 x10*3/uL (2.0-8.3); Neutrophils Percent Auto 59.9 % (45-73); PLT CLUMP 1; Red Blood Count 4.57 X10*6/uL (4.60-5.80); Red Cell Distribution Width 13.2 % (11.0-16.0); SCAN SMEAR FLAG 1
[2021-10-31 11:16] LABS: Platelet Count 80 X10*3/uL (160-400)
[2021-10-31 11:17] LABS: SLIDE REVIEW VERIFIED
== END 2021-10-31 10:41 | disposition home or self-care (01) ==
LOC: HO.LNP 10:40
PROVIDERS: Visit Provider Internal Medicine
DX: D69.6 Thrombocytopenia, unspecified (principal)
CPT/HCPCS: 85025

== ENCOUNTER 2021-11-21 10:24 | Outpatient (REF) | payer MEDICARE, SELFPAY ==
[2021-11-21 10:45] LABS: INTERNATIONAL NORM RATIO 1.8 (0.9-1.1); Prothrombin Time 21.2 SEC (10.0-13.1)
== END 2021-11-21 10:25 | disposition home or self-care (01) ==
LOC: HO.LNP 10:24
PROVIDERS: Visit Provider Internal Medicine
DX: I48.0 Paroxysmal atrial fibrillation (principal); Z79.01 Long term (current) use of anticoagulants
CPT/HCPCS: 85610

== ENCOUNTER 2021-12-19 10:32 | Outpatient (REF) | payer MEDICARE, SELFPAY ==
[2021-12-19 11:43] LABS: INTERNATIONAL NORM RATIO 2.5 (0.9-1.1); Prothrombin Time 30.1 SEC (10.0-13.1)
== END 2021-12-19 10:33 | disposition home or self-care (01) ==
LOC: HO.LNP 10:32
PROVIDERS: Visit Provider Internal Medicine
DX: I48.0 Paroxysmal atrial fibrillation (principal); Z79.01 Long term (current) use of anticoagulants
CPT/HCPCS: 85610

== ENCOUNTER 2022-01-08 10:42 | Outpatient (REF) | payer MEDICARE, SELFPAY ==
[2022-01-08 10:56] LABS: Basophils Absolute Auto 0.1 X10*3/uL (0.0-0.2); Basophils Percent Auto 0.5 % (0-2); Eosinophils Absolute Auto 0.2 X10*3/uL (0.0-0.4); Eosinophils Percent Auto 1.9 % (0-4); Hemoglobin 15.1 g/dl (14.0-18.0); Imm Gran Abs Auto 0.02 X10*3/uL (0.00-0.03); Imm Gran Pct Auto 0.2 % (0.0-0.4); Lymphocytes Absolute Auto 2.8 X10*3/uL (1.2-4.9); Lymphocytes Percent Auto 29.4 % (20-40); MANUAL DIFF FLAG SCAN; Mean Corpuscular HGB Conc 33.6 g/dl (31.0-36.0); Mean Corpuscular Hemoglobin 32.3 pg (27.0-33.0); Mean Corpuscular Volume 96.4 fL (80.0-98.0); Mean Platelet Volume 11.4 fL (9.4-12.4); Monocytes Absolute Auto 0.7 X10*3/uL (0.1-1.2); Monocytes Percent Auto 7.6 % (2-11); Neutrophils Absolute Auto 5.8 x10*3/uL (2.0-8.3); Neutrophils Percent Auto 60.4 % (45-73); PLT CLUMP 1; Red Blood Count 4.67 X10*6/uL (4.60-5.80); Red Cell Distribution Width 13.2 % (11.0-16.0); SCAN SMEAR FLAG 1
[2022-01-08 11:06] LABS: INTERNATIONAL NORM RATIO 2.2 (0.9-1.1); Prothrombin Time 25.8 SEC (10.0-13.1)
[2022-01-08 12:01] LABS: Platelet Count 78 X10*3/uL (160-400); White Blood Count 9.5 X10*3/uL (4.8-10.8)
[2022-01-08 12:02] LABS: SLIDE REVIEW VERIFIED
== END 2022-01-08 10:43 | disposition home or self-care (01) ==
LOC: HO.LNP 10:42
PROVIDERS: Visit Provider Internal Medicine
DX: I48.0 Paroxysmal atrial fibrillation (principal); D69.6 Thrombocytopenia, unspecified; Z79.01 Long term (current) use of anticoagulants
CPT/HCPCS: 85025; 85610

== ENCOUNTER 2022-01-30 10:38 | Outpatient (REF) | payer MEDICARE, SELFPAY ==
[2022-01-30 11:11] LABS: INTERNATIONAL NORM RATIO 2.2 (0.9-1.1); Prothrombin Time 26.5 SEC (10.0-13.1)
== END 2022-01-30 10:39 | disposition home or self-care (01) ==
LOC: HO.LNP 10:38
PROVIDERS: Visit Provider Internal Medicine
DX: I48.0 Paroxysmal atrial fibrillation (principal); Z79.01 Long term (current) use of anticoagulants
CPT/HCPCS: 85610

== ENCOUNTER 2022-02-13 10:45 | Outpatient (REF) | payer MEDICARE, SELFPAY ==
[2022-02-13 11:13] LABS: INTERNATIONAL NORM RATIO 2.7 (0.9-1.1); Prothrombin Time 32.6 SEC (10.0-13.1)
== END 2022-02-13 10:46 | disposition home or self-care (01) ==
LOC: HO.LNP 10:45
PROVIDERS: Visit Provider Internal Medicine
DX: I48.0 Paroxysmal atrial fibrillation (principal); Z79.01 Long term (current) use of anticoagulants
CPT/HCPCS: 85610

== ENCOUNTER 2022-03-06 10:22 | Outpatient (REF) | payer MEDICARE, SELFPAY ==
[2022-03-06 10:42] LABS: INTERNATIONAL NORM RATIO 1.9 (0.9-1.1); Prothrombin Time 22.9 SEC (10.0-13.1)
== END 2022-03-06 10:23 | disposition home or self-care (01) ==
LOC: HO.LNP 10:22
PROVIDERS: Visit Provider Internal Medicine
DX: I48.0 Paroxysmal atrial fibrillation (principal); Z79.01 Long term (current) use of anticoagulants
CPT/HCPCS: 85610

== ENCOUNTER 2022-03-16 10:23 | Outpatient (REF) | payer MEDICARE, SELFPAY ==
[2022-03-16 10:25] LABS: MANUAL DIFF FLAG NO
[2022-03-16 10:37] LABS: INTERNATIONAL NORM RATIO 2.8 (0.9-1.1); Prothrombin Time 33.2 SEC (10.0-13.1)
[2022-03-16 10:48] LABS: Basophils Absolute Auto 0.1 X10*3/uL (0.0-0.2); Basophils Percent Auto 0.6 % (0-2); Eosinophils Absolute Auto 0.2 X10*3/uL (0.0-0.4); Eosinophils Percent Auto 1.8 % (0-4); Hematocrit 49.4 % (42.0-52.0); Hemoglobin 16.3 g/dl (14.0-18.0); Imm Gran Abs Auto 0.02 X10*3/uL (0.00-0.03); Imm Gran Pct Auto 0.2 % (0.0-0.4); Lymphocytes Percent Auto 30.5 % (20-40); Mean Corpuscular Hemoglobin 32.2 pg (27.0-33.0); Mean Corpuscular Volume 97.6 fL (80.0-98.0); Monocytes Absolute Auto 0.8 X10*3/uL (0.1-1.2); Monocytes Percent Auto 7.7 % (2-11); Neutrophils Absolute Auto 5.8 x10*3/uL (2.0-8.3); Neutrophils Percent Auto 59.2 % (45-73); Platelet Count 123 X10*3/uL (160-400); Red Blood Count 5.06 X10*6/uL (4.60-5.80); Red Cell Distribution Width 13.2 % (11.0-16.0); White Blood Count 9.8 X10*3/uL (4.8-10.8)
== END 2022-03-16 10:24 | disposition home or self-care (01) ==
LOC: HO.LNP 10:23
PROVIDERS: PCP Internal Medicine; Visit Provider Internal Medicine
DX: D69.6 Thrombocytopenia, unspecified (principal); Z79.01 Long term (current) use of anticoagulants
CPT/HCPCS: 85025; 85610

== ENCOUNTER 2022-03-31 09:52 | Emergency (ER) | payer MEDICARE, SELFPAY ==
--- NOTE | ~2022-03-31 | XR_ITS ---
EXAMINATION: XR CHEST CLINICAL INFORMATION: Chest pain COMPARISON: 10/13/2016 TECHNIQUE: Frontal view of the chest was obtained. FINDINGS: No focal consolidation, pulmonary edema, or pleural effusion. Stable cardiomediastinal silhouette. XR/XR chest 1V IMPRESSION: No acute cardiopulmonary findings.
--- NOTE | 2022-03-31 09:53 | ECG_ITS ---
Test Reason : CP Blood Pressure : / mmHG Vent. Rate : 067 BPM Atrial Rate : 067 BPM P-R Int : 194 ms QRS Dur : 078 ms QT Int : 372 ms P-R-T Axes : 106 -44 -15 degrees QTc Int : 393 ms Normal sinus rhythm Left axis deviation Minimal voltage criteria for LVH, may be normal variant ( R in aVL ) Inferior infarct , age undetermined Anterior infarct , age undetermined Abnormal ECG When compared with ECG of 13-OCT-2016 17:37, Anterior infarct is now Present QT has shortened Referred By: Generic ED Physician Electronically Signed By:Edilson Florian
[2022-03-31 09:56] VITALS: BP 150/70; PULSE 71; RESP 18; TEMP 35.6; O2SAT 97; BMI 30.8
--- NOTE | 2022-03-31 10:20 | ED_ITS ---
HPI - Chest Pain General Chief Complaint: Chest Pain Stated Complaint: chest pain Time Seen by Provider: 03/31/22 10:09 Source: patient and family (Spouse) Mode of arrival: ambulatory Limitations: no limitations History of Present Illness HPI narrative: 76-year-old male came in for evaluation of chest pain. Epigastric/lower chest pain started about 1 hour before coming to the ED after patient had again taken breakfast, pain was localized to the lower chest with no radiation, pain lasted for about 10 minutes then after patient burped pain immediately improved, now patient has no chest pain. Patient last night was complaining of left-sided neck pain lasted for about 2 hours no other associated symptoms with this. Patient otherwise declined any sick contacts, no recent travel, no recent prolonged immobilization, no lower extremity swelling or tenderness. Related Data Home Medications Medication Instructions Recorded Confirmed atenolol 50 mg tablet 75 mg PO BID 12/17/19 10/16/21 finasteride 5 mg tablet 5 mg PO DAILY 12/17/19 10/16/21 furosemide 20 mg tablet 20 mg PO DAILY 12/17/19 10/16/21 losartan 100 1 tab PO DAILY 12/17/19 10/16/21 mg-hydrochlorothiazide 25 mg tablet warfarin 2 mg tablet 7 mg PO DAILY 12/17/19 07/13/21 flu vacc [id number](65yr up)-PF 240 ml IM 01/28/20 07/13/21 mcg/0.7 mL intramuscular syringe clotrimazole-betamethasone 1 appl topical 08/23/20 07/13/21 %-0.05 % topical cream paroxetine HCl 20 mg tablet 20 mg PO QAM 08/23/20 10/16/21 warfarin 5 mg tablet 0 mg PO 10/10/20 07/13/21 Previous Rx's Medication Instructions Recorded blood-glucose meter (FreeStyle #1 ea 12/18/19 Lite Meter kit) flash glucose sensor (FreeStyle #2 ea 03/31/20 Lindsey 14 Day Sensor kit) pen needle, diabetic 32 gauge x #100 ea 04/27/20 1/4 (BD Ultra-Fine Micro Pen Needle) pen needle, diabetic 32 gauge x #100 ea 05/04/20 1/4 (BD Ultra-Fine Micro Pen Needle) acetaminophen 650 mg 650 mg PO Q12H PRN pain 30 days 07/19/20 tablet,extended release (Tylenol #30 tabs Arthritis Pain) flash glucose scanning reader #1 ea 09/07/20 (FreeStyle Lindsey 14 Day [place]) blood sugar diagnostic (FreeStyle See Rx Instructions .Route QID 12/12/20 Lite Strips) #100 caps lancets 28 gauge (FreeStyle #100 ea 12/12/20 Lancets) pen needle, diabetic 32 gauge x #100 ea 12/21/2032 (BD Hui 2nd Gen Pen Needle) pen needle, diabetic 32 gauge x #100 ea 08/22/21 532 (Pen Needle) pravastatin 20 mg tablet 20 mg PO BEDTIME 90 days #90 tabs 09/12/21 cholecalciferol (vitamin D3) 50 50 mcg PO DAILY 30 days #30 caps 10/17/21 mcg (2,000 unit) capsule insulin glargine 100 unit/mL (3 20 unit (0.2 mL) subcut QPM 90 01/08/22 mL) subcutaneous pen (Basaglar days #18 mL KwikPen U-100 Insulin) insulin lispro 100 unit/mL 6 unit (0.06 mL) subcut TID 30 02/12/22 subcutaneous pen (Humalog KwikPen days #5.4 mL (U-100) Insulin) Allergies Allergy/AdvReac Type Severity Reaction Status Date / Time lisinopril AdvReac Cough Verified 10/16/21 14:27 metformin AdvReac Diarrhea Verified 10/16/21 14:27 Review of Systems Review of Systems: All other systems are reviewed and are negative Constitutional: Reports as per HPI and Reports no additional constitutional complaints Eyes: Reports as per HPI and Reports no additional eye complaints Reports system reviewed and no additional complaints, except as documented Cardiovascular: Reports as per HPI and Reports no additional cardiovascular complaints Respiratory: Reports as per HPI and Reports no additional respiratory complaints Gastrointestinal: Reports as per HPI and Reports no additional gastrointestinal complaints Genitourinary: Reports no additional female genitourinary complaints Musculoskeletal: Reports no additional musculoskeletal complaints Skin/Breast: Reports system reviewed and no additional complaints, except as docu Psychiatric: Reports no additional psychiatric complaints Endocrine: Reports no additional endocrine complaints Hematologic/Lymphatic: Reports no additional hematologic/lymphatic complaints Allergic/Immunologic: Reports no additional allergic/immunologic complaints Reports system reviewed and no additional complaints, except as documented and Reports Abnormal speech present [facility] Past Medical History Medical History Afib HLD (hyperlipidemia) HTN (hypertension) Lower extremity edema Pancreatitis T2DM (type 2 diabetes mellitus) Vitamin D deficiency Surgical History History of cholecystectomy Hx of sinus surgery Previous back surgery Family History Family History Father No problems noted. Mother No problems noted. Social History Social History Alcohol intake: never Patient Tobacco Use Status: Never used Tobacco Smoked in Last 30 Days: No Use of substances other than those prescribed or required for medical reasons: No Advance Directives: No Current occupational status: unemployed Physical Exam Vital Signs: Vital Signs: Last Vital Signs Temp 98.9 F 03/31/22 13:29 Pulse 66 03/31/22 13:29 Resp 13 03/31/22 13:29 BP 146/70 H 03/31/22 13:29 Pulse Ox 94 03/31/22 13:29 O2 Del Method 03/31/22 13:29 BMI result Body Mass Index 30.8 Vital signs have been reviewed as appeared to be correct. Blood pressure normal. Heart rate normal. Respiration rate normal. Temperature normal. Oxygen saturation normal. Appearance: Alert. Oriented X3. No acute distress. Head: Normal external exam. Normocephalic. Atraumatic. No Reynolds signs noted. No raccoon eyes noted Eyes: PERRLA. EOMI. Conjunctiva and sclera normal. Eyelids normal. ENT: TM's Normal. Pharynx normal. Uvula midline. Moist mucous membranes. No trismus noted. No drooling noted. No muffled voice noted. Neck: Normal inspection. Neck supple. FROM. No adenopathy. Thyroid Normal. No meningeal signs. No neck mass noted. CVS: Normal heart rate and rhythm. Heart sound normal. No murmurs noted. Pulses normal throughout. Respiratory: No respiratory distress. Painless inspiration. Breath sounds normal. No wheezes/rales/rhonchi noted. Chest nontender. No accessory muscle usage noted or decreased air movement noted. Abdomen: Soft and nontender. Bowel sounds normal in all 4 quadrants. No distention noted. No organomegaly noted. No visible injury noted. Back: No CVA tenderness. Full range of motion noted. Skin: Skin warm and dry. Normal skin color. Normal skin turgor. No rashes/lesions/lacerations noted. Extremities: No lower extremity edema. Extremities exhibit normal range of motion. Extremities nontender. Neuro: Oriented X 3. Cranial nerve exam: II-XII are grossly intact No motor deficit. No sensory deficit. Reflexes normal. Course Course Course Narrative: 76-year-old male came in with chest pain likely due to GERD, patient had n egative troponin x2 was nondiagnostic EKG. Will discharge to follow-up with PCP. Medical Decision Making Differential Diagnosis Differential Diagnoses: The differential diagnosis associated with the presentation includes (Gastritis, GERD, ACS, pneumonia, pneumothorax.) Lab Data MDM Lab Attestation statement: I reviewed the patient's lab results. 03/31/22 10:40 03/31/22 10:40 Labs: Lab Results 03/31/22 03/31/22 03/31/22 Range/Units 10:39 10:39 10:40 WBC 7.1 (4.8-10.8) X10*3/uL RBC 4.86 (4.60-5.80) X10*6/uL Hgb 15.9 (14.0-18.0) g/dl Hct 47.2 (42.0-52.0) % MCV 97.1 (80.0-98.0) fL MCH 32.7 (27.0-33.0) pg MCHC 33.7 (31.0-36.0) g/dl RDW 13.0 (11.0-16.0) % Plt Count 125 L (160-400) X10*3/uL MPV 10.4 (9.4-12.4) fL Immature Gran % (Auto) 0.3 (0.0-0.4) % Neut % (Auto) 63.1 (45-73) % Lymph % (Auto) 27.1 (20-40) % Bennett % (Auto) 7.1 (2-11) % Eos % (Auto) 1.7 (0-4) % Baso % (Auto) 0.7 (0-2) % Lymph # (Auto) 1.9 (1.2-4.9) X10*3/uL Bennett # (Auto) 0.5 (0.1-1.2) X10*3/uL Eos # (Auto) 0.1 (0.0-0.4) X10*3/uL Baso # (Auto) 0.1 (0.0-0.2) X10*3/uL Abs Immat Gran (auto) 0.02 (0.00-0.03) X10*3/uL Absolute Neuts (auto) 4.5 (2.0-8.3) x10*3/uL Absolute Nucleated RBC 0.000 (0.0-0.012) X10*3/uL Nucleated RBC % (auto) 0.0 (0.0-0.2) /100WBC Sodium (135-145) mmol/L Potassium (3.3-5.1) mmol/L Chloride (96-108) mmol/L Carbon Dioxide (22-29) mmol/L Anion Gap (12-20) BUN (9-16) mg/dL Creatinine (0.5-1.4) mg/dL Estim Creat Clear Calc Estimated GFR POC Glucose (60-115) mg/dL Random Glucose (60-115) mg/dL Calcium (8.4-10.2) mg/dL Total Bilirubin (0.0-1.0) mg/dL Direct Bilirubin (0.0-0.5) mg/dL AST (5-37) U/L ALT (0-40) U/L Alkaline Phosphatase (39-117) U/L Troponin I High Sens (<3.5-35.0) ng/L B-Natriuretic Peptide 49 (<100) pg/mL Total Protein (6.5-8.0) g/dL Albumin (3.5-5.0) g/dL Lipase (8-78) U/L Urine Color Urine Appearance Urine pH (5.0-9.0) Ur Specific [place] (1.005-1.025) Urine Protein (Neg-Trace) mg/dL Urine Glucose (UA) (Negative) mg/dL Urine Ketones (Negative) mg/dL Urine Blood (Negative) Urine Nitrite (Negative) Ur Leukocyte Esterase (Negative) Influenza Type A (PCR) NEGATIVE (Negative) Influenza Type B (PCR) NEGATIVE (Negative) RSV RNA Qual (PCR) NEGATIVE (Negative) SARS-CoV-2 RNA (RT-PCR) NEGATIVE (Negative) 03/31/22 03/31/22 03/31/22 Range/Units 10:40 10:40 11:15 WBC (4.8-10.8) X10*3/uL RBC (4.60-5.80) X10*6/uL Hgb (14.0-18.0) g/dl Hct (42.0-52.0) % MCV (80.0-98.0) fL MCH (27.0-33.0) pg MCHC (31.0-36.0) g/dl RDW (11.0-16.0) % Plt Count (160-400) X10*3/uL MPV (9.4-12.4) fL Immature Gran % (Auto) (0.0-0.4) % Neut % (Auto) (45-73) % Lymph % (Auto) (20-40) % Bennett % (Auto) (2-11) % Eos % (Auto) (0-4) % Baso % (Auto) (0-2) % Lymph # (Auto) (1.2-4.9) X10*3/uL Bennett # (Auto) (0.1-1.2) X10*3/uL Eos # (Auto) (0.0-0.4) X10*3/uL Baso # (Auto) (0.0-0.2) X10*3/uL Abs Immat Gran (auto) (0.00-0.03) X10*3/uL Absolute Neuts (auto) (2.0-8.3) x10*3/uL Absolute Nucleated RBC (0.0-0.012) X10*3/uL Nucleated RBC % (auto) (0.0-0.2) /100WBC Sodium 140 (135-145) mmol/L Potassium 4.1 (3.3-5.1) mmol/L Chloride 102 (96-108) mmol/L Carbon Dioxide 32 H (22-29) mmol/L Anion Gap 10 L (12-20) BUN 23 H (9-16) mg/dL Creatinine 1.24 (0.5-1.4) mg/dL Estim Creat Clear Calc 68.6 Estimated GFR 57 POC Glucose (60-115) mg/dL Random Glucose 181 H (60-115) mg/dL Calcium 9.3 (8.4-10.2) mg/dL Total Bilirubin 0.6 (0.0-1.0) mg/dL Direct Bilirubin 0.2 (0.0-0.5) mg/dL AST 18 (5-37) U/L ALT 22 (0-40) U/L Alkaline Phosphatase 57 (39-117) U/L Troponin I High Sens < 3.5 (<3.5-35.0) ng/L B-Natriuretic Peptide (<100) pg/mL Total Protein 6.8 (6.5-8.0) g/dL Albumin 4.2 (3.5-5.0) g/dL Lipase 26 (8-78) U/L Urine Color Yellow Urine Appearance Clear Urine pH 5.5 (5.0-9.0) Ur Specific [place] 1.015 (1.005-1.025) Urine Protein Negative (Neg-Trace) mg/dL Urine Glucose (UA) Negative (Negative) mg/dL Urine Ketones Negative (Negative) mg/dL Urine Blood Negative (Negative) Urine Nitrite Negative (Negative) Ur Leukocyte Esterase Negative (Negative) Influenza Type A (PCR) (Negative) Influenza Type B (PCR) (Negative) RSV RNA Qual (PCR) (Negative) SARS-CoV-2 RNA (RT-PCR) (Negative) 03/31/22 03/31/22 Range/Units 11:59 13:37 WBC (4.8-10.8) X10*3/uL RBC (4.60-5.80) X10*6/uL Hgb (14.0-18.0) g/dl Hct (42.0-52.0) % MCV (80.0-98.0) fL MCH (27.0-33.0) pg MCHC (31.0-36.0) g/dl RDW (11.0-16.0) % Plt Count (160-400) X10*3/uL MPV (9.4-12.4) fL Immature Gran % (Auto) (0.0-0.4) % Neut % (Auto) (45-73) % Lymph % (Auto) (20-40) % Bennett % (Auto) (2-11) % Eos % (Auto) (0-4) % Baso % (Auto) (0-2) % Lymph # (Auto) (1.2-4.9) X10*3/uL Bennett # (Auto) (0.1-1.2) X10*3/uL Eos # (Auto) (0.0-0.4) X10*3/uL Baso # (Auto) (0.0-0.2) X10*3/uL Abs Immat Gran (auto) (0.00-0.03) X10*3/uL Absolute Neuts (auto) (2.0-8.3) x10*3/uL Absolute Nucleated RBC (0.0-0.012) X10*3/uL Nucleated RBC % (auto) (0.0-0.2) /100WBC Sodium (135-145) mmol/L Potassium (3.3-5.1) mmol/L Chloride (96-108) mmol/L Carbon Dioxide (22-29) mmol/L Anion Gap (12-20) BUN (9-16) mg/dL Creatinine (0.5-1.4) mg/dL Estim Creat Clear Calc Estimated GFR POC Glucose 188 H (60-115) mg/dL Random Glucose (60-115) mg/dL Calcium (8.4-10.2) mg/dL Total Bilirubin (0.0-1.0) mg/dL Direct Bilirubin (0.0-0.5) mg/dL AST (5-37) U/L ALT (0-40) U/L Alkaline Phosphatase (39-117) U/L Troponin I High Sens < 3.5 (<3.5-35.0) ng/L B-Natriuretic Peptide (<100) pg/mL Total Protein (6.5-8.0) g/dL Albumin (3.5-5.0) g/dL Lipase (8-78) U/L Urine Color Urine Appearance Urine pH (5.0-9.0) Ur Specific [place] (1.005-1.025) Urine Protein (Neg-Trace) mg/dL Urine Glucose (UA) (Negative) mg/dL Urine Ketones (Negative) mg/dL Urine Blood (Negative) Urine Nitrite (Negative) Ur Leukocyte Esterase (Negative) Influenza Type A (PCR) (Negative) Influenza Type B (PCR) (Negative) RSV RNA Qual (PCR) (Negative) SARS-CoV-2 RNA (RT-PCR) (Negative) Independent Interpretation I performed an independent interpretation of an: EKG (Normal sinus rhythm at 69 beats per minute, left axis deviation, LVH, normal intervals.) and Plain X-Ray (Chest: No acute cardiopulmonary findings.) Discharge Plan Discharge Clinical Impression: Atypical chest pain Patient Disposition: Home, Self-Care Instructions: Chest Pain (ED) Prescriptions: No Action (DME) blood-glucose meter [FreeStyle Lite Meter] Kit See Rx Instructions .ROUTE .MEDSUPPLY Qty: 1 0RF Rx Instructions: As directed (DME) FreeStyle Lindsey 14 Day Sensor Kit See Rx Instructions .ROUTE .MEDSUPPLY Qty: 2 11RF Rx Instructions: Once every 14 days (DME) pen needle, diabetic [BD Ultra-Fine Micro Pen Needle] 32 gauge x 1/4 needle See Rx Instructions .ROUTE .MEDSUPPLY Qty: 100 2RF Rx Instructions: once daily with insulin (DME) pen needle, diabetic [BD Ultra-Fine Micro Pen Needle] 32 gauge x 1/4 needle See Rx Instructions .ROUTE .MEDSUPPLY Qty: 100 0RF Rx Instructions: 3 tmes daily (DME) FreeStyle Lindsey 14 Day [place] Misc See Rx Instructions .ROUTE .MEDSUPPLY Qty: 1 0RF Rx Instructions: As directed FreeStyle Lite Strips Strip See Rx Instructions .ROUTE QID Qty: 100 11RF Rx Instructions: 4 times a day; (DME) lancets [FreeStyle Lancets] 28 gauge misc See Rx Instructions .ROUTE .MEDSUPPLY Qty: 100 1RF Rx Instructions: 4x daily (DME) pen needle, diabetic [BD Hui 2nd Gen Pen Needle] 32 gauge x 5/32 needle See Rx Instructions .ROUTE .MEDSUPPLY Qty: 100 11RF Rx Instructions: 4 times daily (DME) pen needle, diabetic [Pen Needle] 32 gauge x 5/32 needle See Rx Instructions .ROUTE .MEDSUPPLY Qty: 100 11RF Rx Instructions: 4x daily pravastatin 20 mg tablet 20 mg PO BEDTIME 90 Days Qty: 90 11RF cholecalciferol (vitamin D3) 50 mcg (2,000 unit) capsule 50 mcg PO DAILY 30 Days Qty: 30 11RF insulin glargine [Basaglar KwikPen U-100 Insulin] 100 unit/mL (3 mL) insulin pen 20 unit subcut QPM 90 Days Qty: 18 3RF insulin lispro [Humalog KwikPen Insulin] 100 unit/mL insulin pen 6 unit subcut TID 30 Days Qty: 5.4 11RF losartan-hydrochlorothiazide 100-25 mg tablet 1 tab PO DAILY atenolol 50 mg tablet 75 mg PO BID finasteride 5 mg tablet 5 mg PO DAILY furosemide 20 mg tablet 20 mg PO DAILY warfarin 2 mg tablet 7 mg PO DAILY paroxetine HCl 20 mg tablet 20 mg PO QAM clotrimazole-betamethasone 1-0.05 % cream topical acetaminophen [Tylenol Arthritis Pain] 650 mg tablet extended release 650 mg PO Q12H PRN (Reason: pain) 30 Days Qty: 30 0RF warfarin 5 mg tablet 0 mg PO Fluzone HighDose Quad 20-21 PF 240 mcg/0.7 mL syringe IM Referrals: Brody Goldberg MD [Primary Care Provider] -
[2022-03-31 10:23] VITALS: BP 152/75; PULSE 65; RESP 13; TEMP 36.5; O2SAT 97
[2022-03-31 10:45] LABS: MANUAL DIFF FLAG NO
[2022-03-31 10:49] LABS: Basophils Absolute Auto 0.1 X10*3/uL (0.0-0.2); Basophils Percent Auto 0.7 % (0-2); Eosinophils Absolute Auto 0.1 X10*3/uL (0.0-0.4); Eosinophils Percent Auto 1.7 % (0-4); Hematocrit 47.2 % (42.0-52.0); Hemoglobin 15.9 g/dl (14.0-18.0); Imm Gran Abs Auto 0.02 X10*3/uL (0.00-0.03); Imm Gran Pct Auto 0.3 % (0.0-0.4); Lymphocytes Absolute Auto 1.9 X10*3/uL (1.2-4.9); Lymphocytes Percent Auto 27.1 % (20-40); Mean Corpuscular HGB Conc 33.7 g/dl (31.0-36.0); Mean Corpuscular Hemoglobin 32.7 pg (27.0-33.0); Mean Corpuscular Volume 97.1 fL (80.0-98.0); Mean Platelet Volume 10.4 fL (9.4-12.4); Monocytes Absolute Auto 0.5 X10*3/uL (0.1-1.2); Monocytes Percent Auto 7.1 % (2-11); Neutrophils Absolute Auto 4.5 x10*3/uL (2.0-8.3); Neutrophils Percent Auto 63.1 % (45-73); Platelet Count 125 X10*3/uL (160-400); Red Blood Count 4.86 X10*6/uL (4.60-5.80); White Blood Count 7.1 X10*3/uL (4.8-10.8)
[2022-03-31 11:23] LABS: B Type Natriuretic Peptide 49 pg/mL (<100)
[2022-03-31 11:23] LABS: Alanine Aminotransferase 22 U/L (0-40); Albumin Level 4.2 g/dL (3.5-5.0); Alkaline Phosphatase 57 U/L (39-117); Anion Gap 10 (12-20); Aspartate Amino Transferase 18 U/L (5-37); Bilirubin Direct 0.2 mg/dL (0.0-0.5); Bilirubin Total 0.6 mg/dL (0.0-1.0); Blood Urea Nitrogen 23 mg/dL (9-16); Calcium 9.3 mg/dL (8.4-10.2); Carbon Dioxide 32 mmol/L (22-29); Chloride 102 mmol/L (96-108); Creatinine Clr Calc Pharmacy 68.6; Estimated Glomerular Filt Rate 57; Glucose Random 181 mg/dL (60-115); Lipase 26 U/L (8-78); Potassium 4.1 mmol/L (3.3-5.1); Sodium 140 mmol/L (135-145); Total Protein 6.8 g/dL (6.5-8.0)
[2022-03-31 11:24] LABS: Influenza A PCR NEGATIVE (Negative); Influenza B PCR NEGATIVE (Negative); Resp Syncy Virus RNA Qual PCR NEGATIVE (Negative); SARS COV2 PCR INHOUSE NEGATIVE (Negative)
[2022-03-31 11:24] LABS: Troponin-I High Sensitivity < 3.5 ng/L (<3.5-35.0)
[2022-03-31 11:26] LABS: Appearance Urine Clear; Color Urine Yellow; Glucose Urine UA Negative (Negative); Leukocyte Esterase Urine Negative (Negative); Nitrite Urine Negative (Negative); PH 5.5 (5.0-9.0); Specific Gravity - Urine 1.015 (1.005-1.025); Urine Blood Negative (Negative); Urine Ketones Negative (Negative); Urine Protein Negative (Neg-Trace)
[2022-03-31 12:07] LABS: Glucose, Whole Blood 188 mg/dL (60-115)
--- NOTE | 2022-03-31 13:15 | PC.NURSE ---
PT A+O X4, VSS. HE REPORTS THAT THIS MORNING AFTER EATING BREAKFAST HE STARTED HAVING EPIGASTRIC PAIN. HE STATES THAT AFTER BURPING THE PAIN WENT AWAY. HE DENIES PAIN ON ARRIVAL TO THE ED. PT HAS HX OF CHRONIC AFIB AND IS ON COUMADIN. NO OTHER SYMPTOMS REPORTED. NO OTHER COMPLAINTS. PT'S IS WITH HIM.
[2022-03-31 13:29] VITALS: BP 146/70; PULSE 66; RESP 13; TEMP 37.2; O2SAT 94
[2022-03-31 14:04] LABS: Troponin-I High Sensitivity < 3.5 ng/L (<3.5-35.0)
== END 2022-03-31 15:13 | disposition home or self-care (01) ==
PROVIDERS: Emergency Provider Emergency Medicine; PCP Internal Medicine
DX: R07.89 Other chest pain (principal); Z20.822 Contact with and (suspected) exposure to COVID-19; Z20.828 Contact with and (suspected) exposure to other viral communicable diseases; I10 Essential (primary) hypertension; E11.9 Type 2 diabetes mellitus without complications; E78.5 Hyperlipidemia, unspecified; I48.91 Unspecified atrial fibrillation; Z79.02 Long term (current) use of antithrombotics/antiplatelets; Z79.4 Long term (current) use of insulin; Z79.899 Other long term (current) drug therapy; Z79.01 Long term (current) use of anticoagulants
CPT/HCPCS: 0241U; 36415; 71045; 80048; 80076; 81003; 82947; 83690; 83880; 84484; 85025; 93005; 99283; 99285

== ENCOUNTER 2022-06-21 10:21 | Outpatient (REF) | payer MEDICARE, SELFPAY ==
[2022-06-21 10:35] LABS: INTERNATIONAL NORM RATIO 3.3 (0.9-1.1); Prothrombin Time 39.5 SEC (10.0-13.1)
== END 2022-06-21 10:22 | disposition home or self-care (01) ==
LOC: HO.LNP 10:21
PROVIDERS: Visit Provider Internal Medicine
DX: I48.0 Paroxysmal atrial fibrillation (principal); Z79.01 Long term (current) use of anticoagulants
CPT/HCPCS: 85610

== ENCOUNTER 2022-07-04 07:20 | Outpatient (REF) | payer MEDICARE, SELFPAY ==
[2022-07-04 08:42] LABS: Alanine Aminotransferase 18 U/L (0-40); Albumin Level 4.4 g/dL (3.5-5.0); Alkaline Phosphatase 57 U/L (39-117); Anion Gap 12 (12-20); Aspartate Amino Transferase 17 U/L (5-37); Bilirubin Total 0.7 mg/dL (0.0-1.0); Blood Urea Nitrogen 26 mg/dL (9-16); Calcium 9.5 mg/dL (8.4-10.2); Carbon Dioxide 31 mmol/L (22-29); Chloride 103 mmol/L (96-108); Cholesterol 167 mg/dL; Estimated Glomerular Filt Rate > 60; Glucose Random 144 mg/dL (60-115); HDL Cholesterol 38 mg/dL; LDL Cholesterol Calculated 103 mg/dl; Potassium 4.4 mmol/L (3.3-5.1); Sodium 142 mmol/L (135-145); Total Protein 6.8 g/dL (6.5-8.0); Triglycerides 133 mg/dL
[2022-07-04 08:49] LABS: Estimated Average Glucose 151 mg/dL; Hemoglobin A1c % 6.9 %
[2022-07-04 08:58] LABS: Vitamin D 25-OH Total 40.2 ng/mL (>30)
[2022-07-04 09:19] LABS: Creatinine Urine 117.62 mg/dL; Microalbum/Creatinine Ratio Ur 58.6 ug/mg cr
[2022-07-06 05:59] LABS: LDL Cholesterol Direct 95 mg/dL (<100)
== END 2022-07-04 07:21 | disposition home or self-care (01) ==
LOC: HO.LAB 07:20
PROVIDERS: PCP Internal Medicine; Visit Provider Internal Medicine
DX: E11.65 Type 2 diabetes mellitus with hyperglycemia (principal); E55.9 Vitamin D deficiency, unspecified
CPT/HCPCS: 36415; 80053; 80061; 82043; 82306; 83036; 83721

== ENCOUNTER 2022-07-24 10:34 | Outpatient (REF) | payer MEDICARE, SELFPAY ==
[2022-07-24 10:57] LABS: INTERNATIONAL NORM RATIO 2.7 (0.9-1.1)
== END 2022-07-24 10:35 | disposition home or self-care (01) ==
LOC: HO.LNP 10:34
PROVIDERS: Visit Provider Internal Medicine
DX: I48.0 Paroxysmal atrial fibrillation (principal); Z79.01 Long term (current) use of anticoagulants
CPT/HCPCS: 85610

== ENCOUNTER 2022-08-28 11:08 | Outpatient (REF) | payer MEDICARE, SELFPAY ==
[2022-08-28 11:25] LABS: INTERNATIONAL NORM RATIO 2.4 (0.9-1.1); Prothrombin Time 28.1 SEC (10.0-13.1)
== END 2022-08-28 11:09 | disposition home or self-care (01) ==
LOC: HO.LNP 11:08
PROVIDERS: Visit Provider Internal Medicine
DX: I48.0 Paroxysmal atrial fibrillation (principal); Z79.01 Long term (current) use of anticoagulants
CPT/HCPCS: 85610

== ENCOUNTER 2022-08-28 12:42 | Outpatient (RCR) | payer MEDICARE, SELFPAY | END 2022-08-30 15:01 | disposition home or self-care (01) | LOC: HO.WCC 12:42 | PROVIDERS: PCP Internal Medicine; Visit Provider Physician Assistant | DX: E11.628 Type 2 diabetes mellitus with other skin complications (principal); R23.9 Unspecified skin changes; I10 Essential (primary) hypertension | CPT/HCPCS: 99212 ==

== ENCOUNTER 2022-09-07 10:40 | Outpatient (REF) | payer MEDICARE, SELFPAY ==
[2022-09-07 10:58] LABS: INTERNATIONAL NORM RATIO 2.2 (0.9-1.1); Prothrombin Time 26.3 SEC (10.0-13.1)
== END 2022-09-07 10:41 | disposition home or self-care (01) ==
LOC: HO.LNP 10:40
PROVIDERS: Visit Provider Internal Medicine
DX: I48.0 Paroxysmal atrial fibrillation (principal); Z79.01 Long term (current) use of anticoagulants
CPT/HCPCS: 85610

== ENCOUNTER 2022-09-17 10:23 | Outpatient (REF) | payer MEDICARE, SELFPAY | END 2022-09-17 10:24 | disposition home or self-care (01) | LOC: HO.LNP 10:23 | PROVIDERS: Visit Provider Internal Medicine | DX: I48.0 Paroxysmal atrial fibrillation (principal); Z79.01 Long term (current) use of anticoagulants | CPT/HCPCS: 85610 ==

== ENCOUNTER 2022-09-25 10:14 | Outpatient (REF) | payer MEDICARE, SELFPAY ==
[2022-09-25 10:52] LABS: Appearance Urine Clear; Color Urine Yellow; Glucose Urine UA Negative (Negative); Leukocyte Esterase Urine Negative (Negative); Nitrite Urine Negative (Negative); PH 6.5 (5.0-9.0); Urine Blood Negative (Negative); Urine Ketones Negative (Negative); Urine Protein Negative (Neg-Trace)
[2022-09-25 10:53] LABS: Prothrombin Time 23.6 SEC (10.0-13.1)
[2022-09-25 10:54] LABS: Bacteria Urine None Seen (None Seen); Basophils Absolute Auto 0.1 X10*3/uL (0.0-0.2); Basophils Percent Auto 0.6 % (0-2); Eosinophils Absolute Auto 0.2 X10*3/uL (0.0-0.4); Eosinophils Percent Auto 2.2 % (0-4); Hematocrit 48.5 % (42.0-52.0); Hemoglobin 15.7 g/dl (14.0-18.0); Hyaline Casts Urine 0-2 /LPF (0-2); Imm Gran Abs Auto 0.02 X10*3/uL (0.00-0.03); Imm Gran Pct Auto 0.2 % (0.0-0.4); Lymphocytes Absolute Auto 2.7 X10*3/uL (1.2-4.9); Lymphocytes Percent Auto 27.7 % (20-40); MANUAL DIFF FLAG SCAN; Mean Corpuscular HGB Conc 32.4 g/dl (31.0-36.0); Mean Corpuscular Hemoglobin 31.4 pg (27.0-33.0); Mean Platelet Volume 11.6 fL (9.4-12.4); Monocytes Absolute Auto 0.6 X10*3/uL (0.1-1.2); Monocytes Percent Auto 6.1 % (2-11); Neutrophils Absolute Auto 6.2 x10*3/uL (2.0-8.3); Neutrophils Percent Auto 63.2 % (45-73); PLT CLUMP 1; RBC Urine 0-2 /HPF (0-2); Red Cell Distribution Width 13.8 % (11.0-16.0); SCAN SMEAR FLAG 1; Squamous Epithelial Cell Urine 0-2 /HPF (0-2); WBC Urine 0-5 /HPF (0-5)
[2022-09-25 11:11] LABS: Estimated Average Glucose 163 mg/dL; Hemoglobin A1c % 7.3 %
[2022-09-25 11:14] LABS: White Blood Count 9.8 X10*3/uL (4.8-10.8)
[2022-09-25 11:15] LABS: SLIDE REVIEW VERIFIED
[2022-09-25 11:17] LABS: Alanine Aminotransferase 16 U/L (0-40); Albumin Level 4.2 g/dL (3.5-5.0); Alkaline Phosphatase 55 U/L (39-117); Anion Gap 13 (12-20); Aspartate Amino Transferase 15 U/L (5-37); Bilirubin Total 0.4 mg/dL (0.0-1.0); Blood Urea Nitrogen 29 mg/dL (9-16); Calcium 9.7 mg/dL (8.4-10.2); Carbon Dioxide 31 mmol/L (22-29); Chloride 100 mmol/L (96-108); Cholesterol 197 mg/dL; Estimated Glomerular Filt Rate > 60; Glucose Fasting 172 mg/dL (60-99); HDL Cholesterol 39 mg/dL; LDL Cholesterol Calculated 93 mg/dl; Potassium 4.3 mmol/L (3.3-5.1); Sodium 140 mmol/L (135-145); Total Protein 6.8 g/dL (6.5-8.0); Triglycerides 327 mg/dL
[2022-09-25 11:41] LABS: PSA,Total (Free>4and<10) 1.06 ng/mL (0.00-4.00)
[2022-09-25 12:07] LABS: Creatinine Urine 94.87 mg/dL; Microalbum/Creatinine Ratio Ur 13.7 ug/mg cr
== END 2022-09-25 10:15 | disposition home or self-care (01) ==
LOC: HO.LNP 10:14
PROVIDERS: Visit Provider Internal Medicine
DX: Z12.5 Encounter for screening for malignant neoplasm of prostate (principal); E78.2 Mixed hyperlipidemia; E11.40 Type 2 diabetes mellitus with diabetic neuropathy, unspecified; D69.6 Thrombocytopenia, unspecified; I11.0 Hypertensive heart disease with heart failure; I50.21 Acute systolic (congestive) heart failure
CPT/HCPCS: 80053; 80061; 81001; 82043; 83036; 84153; 85025; 85610

== ENCOUNTER 2022-10-02 10:59 | Outpatient (REF) | payer MEDICARE, SELFPAY ==
[2022-10-02 11:44] LABS: Platelet Count (Citrate) 105 X10*3/uL (150-310)
== END 2022-10-02 11:00 | disposition home or self-care (01) ==
LOC: HO.LNP 10:59
PROVIDERS: Visit Provider Internal Medicine
DX: Z13.89 Encounter for screening for other disorder (principal)

== ENCOUNTER 2022-10-16 10:15 | Outpatient (REF) | payer MEDICARE, SELFPAY ==
[2022-10-16 10:27] LABS: INTERNATIONAL NORM RATIO 2.2 (0.9-1.1); Prothrombin Time 26.5 SEC (11.1-13.3)
== END 2022-10-16 10:16 | disposition home or self-care (01) ==
LOC: HO.LNP 10:15
PROVIDERS: Visit Provider Internal Medicine
DX: I48.0 Paroxysmal atrial fibrillation (principal); Z79.01 Long term (current) use of anticoagulants
CPT/HCPCS: 85610

== ENCOUNTER 2022-10-24 13:52 | Outpatient (AMB) | payer MEDICARE, SELFPAY ==
--- NOTE | 2022-10-24 13:52 | MHC.OFFVIS ---
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: Diabetes Type 2 Intake Note: Diabetes Type 2. Eye exam: Due [facility] Director Of [facility] Services Required: No Allergies lisinopril Adverse Reaction (Verified 10/24/22 14:19) Cough metformin Adverse Reaction (Verified 10/24/22 14:19) Diarrhea Medication List - Last Reconciled 10/24/22 by Trisha Chaudhari, acetaminophen ER (Tylenol Arthritis Pain) 650 mg PO Q12H PRN 30 days atenolol 75 mg PO BID blood sugar diagnostic (FreeStyle Lite Strips) 4 times a day; blood-glucose meter (FreeStyle Lite Meter kit) As directed cholecalciferol (vitamin D3) 50 mcg PO DAILY 30 days clotrimazole-betamethasone 1-0.05 % appl topical finasteride 5 mg PO DAILY flash glucose scanning reader ([employer] Lindsey 14 Day [place]) As directed flash glucose sensor (FreeStyle Lindsey 14 Day Sensor kit) Once every 14 days flu vacc [id number](65yr up)-PF mL IM furosemide 20 mg PO DAILY insulin glargine (Basaglar KwikPen U-100 Insulin) 20 units (0.2 mL) subcut BID 28 days insulin lispro (Humalog KwikPen (U-100) Insulin) 6 units (0.06 mL) subcut TID 30 days lancets (FreeStyle Lancets) 4x daily losartan-hydrochlorothiazide 100-25 mg 1 tab PO DAILY paroxetine HCl 20 mg PO QAM pen needle, diabetic (BD Ultra-Fine Micro Pen Needle) once daily with insulin pen needle, diabetic (BD Ultra-Fine Micro Pen Needle) 3 tmes daily pen needle, diabetic (Pen Needle) 4x daily pen needle, diabetic (BD Hui 2nd Gen Pen Needle) 4 times daily pravastatin 20 mg PO BEDTIME 90 days warfarin 7 mg PO DAILY warfarin 0 mg PO HPI HPI Comments History of Present Illness Details 75 YO Male with PMHx T2DM, HTN, HLD and pancreatitis who is seen in F/U for T2DM. Initially diagnosed with T2DM in 2007. Was initially started on treatment with Metformin, but was unable to tolerate this due to GI distress. He trialed Januvia as well as Farxiga, Jardiance and Invokana, but stopped these as they were ineffective. He has a history of gallstone pancreatitis, and GLP-1 is contraindicated. Current regimen Basaglar 20 units qHS and Humalog 6 units AC. Most recent A1C: 7.3% 09/25/2022, up from 6.5% 10/14/2021, down from 6.6% 07/12/2021, down from 6.9% 03/01/2021. Currently using the [employer] Lindsey CGM. Unable to download sugars today. No true hypoglycemia since his last visit. Is aware of the rule of 15's to treat hypoglycemia. Does check sugar after to ensure it is rising. Denies a Family History of T2DM. Has eyes checked yearly, last eye exam approximately 6 months ago, but no report received. No retinopathy. Has neuropathy, does not see podiatry. Foot exam completed 12/17/2019. Has nephropathy, on Losartan 100 mg PO daily. UAC 13.7 09/25/2022. Has HLD. On Pravastatin 20 mg PO daily. Last LDL 93 09/25/2022. Developed myalgias with Rosuvastatin 10 mg PO daily, stopped this on 07/04/2020. Denies CAD. Diet: Has completely cut out sugars and is counting carbohydrate. Weight: Is losing. Seeing nutrition and CDE. Labs: Laboratory Tests 09/25/22 09/25/22 09/25/22 08:00 08:00 08:00 Creatinine 0.99 Estimated GFR > 60 Hemoglobin A1c % 7.3 LDL Cholesterol, C alc 93 Microalb/Creat Rat io 13.7 [facility] Medical History Afib HLD (hyperlipidemia) HTN (hypertension) Lower extremity edema Pancreatitis T2DM (type 2 diabetes mellitus) Vitamin D deficiency Surgical History History of cholecystectomy Hx of sinus surgery Previous back surgery Family History Father No problems noted. Mother No problems noted. Social History Alcohol intake: never Patient Tobacco Use Status: Never used Tobacco Current occupational status: unemployed Assessment & Plan Assessment & Plan (1) T2DM (type 2 diabetes mellitus): Code(s): E11.9 - Type 2 diabetes mellitus without complications Qualifiers: Diabetes mellitus terminal operations supervisor insulin use: without terminal operations supervisor use Diabetes mellitus complication status: with hyperglycemia Qualified Code(s): E11.65 - Type 2 diabetes mellitus with hyperglycemia Plan: Patient with type 2 diabetes, control has worsened. I advised him to bring his sensor for me to review and I will call him with adjustments. All of his questions were answered today. He is in agreement with this plan of care. The importance of adherence to prescribed regimen was discussed with the patient including checking finger sticks 3-4 times per day, using medication as prescribed, monitoring for hypoglycemia and treating any episode of hypoglycemia according to the rule of 15''s. We reviewed the signs and symptoms of hypoglycemia. Proper foot care was also discussed with the patient, and the importance of yearly dilated eye exam. The patient was asked to have copy of eye exam sent to our office for review. I spent 20 minutes in reviewing the record, seeing the patient and documenting in the medical record, including 5 minutes on the phone with the Patient. (2) HLD (hyperlipidemia): Code(s): E78.5 - Hyperlipidemia, unspecified Qualifiers: Hyperlipidemia type: unspecified Qualified Code(s): E78.5 - Hyperlipidemia, unspecified Plan: He is tolerating Pravastatin well. LDL at goal of less than 100. Will continue as he had myalgias with higher intensity statins. (3) HTN (hypertension): Code(s): I10 - Essential (primary) hypertension Qualifiers: Hypertension type: unspecified Qualified Code(s): I10 - Essential (primary) hypertension Plan: Will continue with Losartan. UAC at goal. (4) Vitamin D deficiency: Code(s): E55.9 - Vitamin D deficiency, unspecified Plan: No changes. Telehealth Telehealth Location of provider rendering services: practice address Location of patient: address on file Patient Identification confirmed using: Name, : Yes Telehealth method: voice only Patient verbally consented to treatment: Yes Patient verbally consented to billing insurance company: Yes Patient informed of any privacy concerns related to visit: Yes Coding Level of Care Code Tele Est Pt Level 3 (00060) Diagnoses T2DM (type 2 diabetes mellitus) E11.65 Diabetes mellitus terminal operations supervisor insulin use: without jail use Diabetes mellitus complication status: with hyperglycemia HLD (hyperlipidemia) E78.5 Hyperlipidemia type: unspecified HTN (hypertension) I10 Hypertension type: unspecified Vitamin D deficiency E55.9
== END 2022-10-24 14:46 | disposition home or self-care (01) ==
LOC: HO.ENCR 13:52
PROVIDERS: PCP Internal Medicine; Visit Provider Internal Medicine
DX: E11.65 Type 2 diabetes mellitus with hyperglycemia (principal); E78.5 Hyperlipidemia, unspecified; I10 Essential (primary) hypertension; E55.9 Vitamin D deficiency, unspecified
CPT/HCPCS: 99443

== ENCOUNTER → 2022-10-24 13:52 | Outpatient (BNVA) | payer MEDICARE, SELFPAY | PROVIDERS: PCP Internal Medicine; Visit Provider Internal Medicine ==

== ENCOUNTER 2022-10-30 10:49 | Outpatient (REF) | payer MEDICARE, SELFPAY ==
[2022-10-30 11:00] LABS: INTERNATIONAL NORM RATIO 2.3 (0.9-1.1); Prothrombin Time 27.7 SEC (11.1-13.3)
== END 2022-10-30 10:50 | disposition home or self-care (01) ==
LOC: HO.LNP 10:49
PROVIDERS: Visit Provider Internal Medicine
DX: I48.0 Paroxysmal atrial fibrillation (principal); Z79.01 Long term (current) use of anticoagulants
CPT/HCPCS: 85610

== ENCOUNTER 2022-11-13 10:27 | Outpatient (REF) | payer MEDICARE, SELFPAY ==
[2022-11-13 10:40] LABS: INTERNATIONAL NORM RATIO 2.4 (0.9-1.1); Prothrombin Time 29.8 SEC (11.1-13.3)
== END 2022-11-13 10:28 | disposition home or self-care (01) ==
LOC: HO.LNP 10:27
PROVIDERS: Visit Provider Internal Medicine
DX: I48.0 Paroxysmal atrial fibrillation (principal); Z79.01 Long term (current) use of anticoagulants
CPT/HCPCS: 85610

== ENCOUNTER 2022-11-27 11:00 | Outpatient (REF) | payer MEDICARE, SELFPAY ==
[2022-11-27 11:12] LABS: INTERNATIONAL NORM RATIO 2.3 (0.9-1.1); Prothrombin Time 28.6 SEC (11.1-13.3)
== END 2022-11-27 11:01 | disposition home or self-care (01) ==
LOC: HO.LNP 11:00
PROVIDERS: Visit Provider Internal Medicine
DX: Z79.01 Long term (current) use of anticoagulants (principal)
CPT/HCPCS: 85610

== ENCOUNTER 2022-12-11 11:19 | Outpatient (REF) | payer MEDICARE, SELFPAY ==
[2022-12-11 11:34] LABS: INTERNATIONAL NORM RATIO 2.3 (0.9-1.1); Prothrombin Time 28.5 SEC (11.1-13.3)
== END 2022-12-11 11:20 | disposition home or self-care (01) ==
LOC: HO.LNP 11:19
PROVIDERS: Visit Provider Internal Medicine
DX: I48.0 Paroxysmal atrial fibrillation (principal); Z79.01 Long term (current) use of anticoagulants
CPT/HCPCS: 85610

== ENCOUNTER 2022-12-25 10:46 | Outpatient (REF) | payer MEDICARE, SELFPAY | END 2022-12-25 10:47 | disposition home or self-care (01) | LOC: HO.LNP 10:46 | PROVIDERS: Visit Provider Internal Medicine | DX: I48.0 Paroxysmal atrial fibrillation (principal); Z79.01 Long term (current) use of anticoagulants | CPT/HCPCS: 85610 ==

== ENCOUNTER 2023-01-08 10:55 | Outpatient (REF) | payer MEDICARE, SELFPAY ==
[2023-01-08 11:24] LABS: INTERNATIONAL NORM RATIO 2.5 (0.9-1.1); Prothrombin Time 30.8 SEC (11.1-13.3)
== END 2023-01-08 10:56 | disposition home or self-care (01) ==
LOC: HO.LNP 10:55
PROVIDERS: Visit Provider Internal Medicine
DX: I48.0 Paroxysmal atrial fibrillation (principal); Z79.01 Long term (current) use of anticoagulants
CPT/HCPCS: 85610

== ENCOUNTER 2023-01-22 07:52 | Outpatient (REF) | payer MEDICARE, SELFPAY ==
[2023-01-22 11:01] LABS: INTERNATIONAL NORM RATIO 2.6 (0.9-1.1); Prothrombin Time 31.5 SEC (11.1-13.3)
== END 2023-01-22 07:53 | disposition home or self-care (01) ==
LOC: HO.10HDL 07:52
PROVIDERS: Visit Provider Internal Medicine
DX: I48.0 Paroxysmal atrial fibrillation (principal); E11.65 Type 2 diabetes mellitus with hyperglycemia; Z79.01 Long term (current) use of anticoagulants; Z79.899 Other long term (current) drug therapy
CPT/HCPCS: 36415; 82947; 83036; 85610; 99212

== ENCOUNTER 2023-01-22 07:59 | Outpatient (AMB) | payer MEDICARE, SELFPAY ==
[2023-01-22 08:05] VITALS: BP 120/68; PULSE 73; BMI 32.4
--- NOTE | 2023-01-22 08:05 | MHC.OFFVIS ---
Intake Vital Signs 01/22/23 08:05 Height 6 ft 2 in Weight 252 lb 6.868 oz BMI 32.4 BP 120/68 Blood Pressure Location Lt brachial Position Sitting Pulse 73 Pulse Source Pulse Oximeter Intake Visit Reasons: Diabetes Type 2 Intake Note: New patient to Dr. Murcia present today for Type 2 Diabetes Mellitus. Previously followed by Dr. Loyola. Last Diabetic Eye exam: 01/2023 Last Podiatry Visit: 02/2022 Random Glucose: 171mg/dl HgA1C: 7.7% Admissions Director Required: No Accompanied by: Self / Same As Patient Allergies lisinopril Adverse Reaction (Verified 01/22/23 08:22) Cough metformin Adverse Reaction (Verified 01/22/23 08:22) Diarrhea Medication List - Last Reconciled 01/22/23 by Armando Murcia MD acetaminophen ER (Tylenol Arthritis Pain) 650 mg PO Q12H PRN 30 days atenolol 75 mg PO BID blood sugar diagnostic (FreeStyle Lite Strips) 4 times a day; blood-glucose meter (FreeStyle Lite Meter kit) As directed cholecalciferol (vitamin D3) 50 mcg PO DAILY 30 days clotrimazole-betamethasone 1-0.05 % appl topical finasteride 5 mg PO DAILY flash glucose scanning reader (Gen[employer] Operating SystemStyle Lindsey 14 Day [place]) As directed flash glucose sensor (FreeStyle Lindsey 14 Day Sensor kit) Once every 14 days flu vacc [id number](65yr up)-PF mL IM furosemide 20 mg PO DAILY insulin glargine (Basaglar KwikPen U-100 Insulin) 20 units (0.2 mL) subcut DAILY insulin lispro (Humalog KwikPen (U-100) Insulin) 6 units (0.06 mL) subcut TID 30 days lancets (FreeStyle Lancets) 4x daily losartan-hydrochlorothiazide 100-25 mg 1 tab PO DAILY paroxetine HCl 20 mg PO QAM pen needle, diabetic (BD Ultra-Fine Micro Pen Needle) once daily with insulin pen needle, diabetic (BD Ultra-Fine Micro Pen Needle) 3 tmes daily pen needle, diabetic (Pen Needle) 4x daily pen needle, diabetic (BD Hui 2nd Gen Pen Needle) 4 times daily pravastatin 20 mg PO BEDTIME 90 days warfarin 7 mg PO DAILY warfarin 0 mg PO HPI HPI Comments History of Present Illness Details 75 YO Male with PMHx T2DM, HTN, HLD and pancreatitis who is seen in F/U for T2DM. Patient last saw Dr. Loyola on 10/24/2022 Initially diagnosed with T2DM in 2007. Was initially started on treatment with Metformin, but was unable to tolerate this due to GI distress. He trialed Januvia as well as Farxiga, Jardiance and Invokana, but stopped these as they were ineffective. He has a history of gallstone pancreatitis 10 yrs ago , and GLP-1 is contraindicated. Current regimen Basaglar 23 units qHS and Humalog 7 units AC. . Currently using the [employer] Lindsey CGM. . Lindsey download shows he is using the sensor 51% of the time. Average glucose is 164 with variability of 17.4%. 76% in target range with 24% hyperglycemia and no hypoglycemia No true hypoglycemia since his last visit. Is aware of the rule of 15's to treat hypoglycemia. Does check sugar after to ensure it is rising. Denies a Family History of T2DM. Has eyes checked yearly, last eye exam - has appt in 1 wk . No retinopathy. Has neuropathy, does not see podiatry. Foot exam completed 12/17/2019. Has nephropathy, on Losartan 100 mg PO daily. UAC 13.7 09/25/2022. Has HLD. On Pravastatin 20 mg PO daily. Last LDL 93 09/25/2022. Developed myalgias with Rosuvastatin 10 mg PO daily, stopped this on 07/04/2020. Denies CAD. Diet: Has completely cut out sugars and is counting carbohydrate. Weight: Is losing. Seeing nutrition and CDE. Labs: Laboratory Tests 09/25/22 09/25/22 09/25/22 08:00 08:00 08:00 Creatinine 0.99 Estimated GFR > 60 Hemoglobin A1c % 7.3 LDL Cholesterol, C alc 93 Microalb/Creat Rat io 13.7 [facility] Medical History Afib HLD (hyperlipidemia) HTN (hypertension) Lower extremity edema Pancreatitis T2DM (type 2 diabetes mellitus) Vitamin D deficiency Surgical History History of cholecystectomy Hx of sinus surgery Previous back surgery Family History Father No problems noted. Mother No problems noted. Social History Alcohol intake: never Patient Tobacco Use Status: Never used Tobacco Current occupational status: unemployed Physical Exam Vital Signs: Last Vital Signs Pulse 73 01/22/23 08:05 BP 120/68 01/22/23 08:05 BMI result Body Mass Index 32.4 Absence of Cushingoid features. Absence of acromegalic features. Neck exam reveals nl size thyroid about 15 gms. No thyroid nodules palpable. No carotid bruits present. Lungs CTA. Heart S1 S2, Reg R/R. No M/R/ G. Skin exam reveals absence of vitiligo or acanthosis nigricans. Abdominal exam reveals Soft NT/ND with NA BS. No organomegaly present. Neck Other: . Extrem Other: Visual exam of foot performed. No ulcerations or open lesions. No onchomycosis, no callouses. Has some scabs present over some toes. Pulses 2 + distally Sensation abscess to monofilament exam. Vibratory sensation sensed is absent with 128 Hz tuning fork Results AMB Hemoglobin A1c AMB Hemoglobin A1c 7.7 % Last Edit by Jo Frias on 01/22/23 08:32 Results Reviewed Results Reviewed: 01/22/23 08:12 Glucose, Whole Blood Routine Laboratory Last Values Glucose (Clinic) 171 mg/dL (60-115) H 01/22/23 08:12 Assessment & Plan Assessment & Plan (1) T2DM (type 2 diabetes mellitus): Code(s): E11.9 - Type 2 diabetes mellitus without complications Qualifiers: Diabetes mellitus complication status: with hyperglycemia Diabetes mellitus remote computer terminal operator insulin use: without remote computer terminal operator use Qualified Code(s): E11.65 - Type 2 diabetes mellitus with hyperglycemia Plan: This 77-year-old white male with history of type 2 diabetes being treated with basal-bolus insulin with fair glycemic control and no known microvascular or macrovascular complications. Plan is to have the patient scan more frequent with the Lindsey. Will have him follow up with reconciliation manager. We talked about different treatment options including possible use of an insulin pump I gave min duration regarding different pumps. Alternatively, we talked about potentially initiating in G [facility] 1 since it was only 1 episode of pancreatitis and was in the distant past and gallstones were corrected. I also told the talk to head of store operations about getting diabetic shoes considering the severity of neuropathy Orders: Orders AMB Hemoglobin A1c Today E11.9 - Type 2 diabetes mellitus without complications Referrals Diabetes Education Referral E11.9 - Type 2 diabetes mellitus without complications Coding Level of Care Code Est Pt Level 4 (15135) Diagnoses Type 2 diabetes mellitus with hyperglycemia, without long-term current use of insulin E11.65 Diabetes mellitus complication status: with hyperglycemia Diabetes mellitus remote computer terminal operator insulin use: without remote computer terminal operator use
[2023-01-22 08:16] LABS: Glucose, Whole Blood 171 mg/dL (60-115)
== END 2023-01-22 08:43 | disposition home or self-care (01) ==
PROVIDERS: PCP Internal Medicine; Visit Provider Internal Medicine Endocrinology, Diabetes & Metabolism
DX: E11.9 Type 2 diabetes mellitus without complications (principal); E11.65 Type 2 diabetes mellitus with hyperglycemia
CPT/HCPCS: 99214

== ENCOUNTER 2023-02-05 13:51 | Outpatient (AMB) | payer MEDICARE, SELFPAY ==
--- NOTE | 2023-02-05 14:49 | MHC.AMDMED ---
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 Accompanied by: Self / Same As Patient Allergies lisinopril Adverse Reaction (Verified 01/22/23 08:22) Cough metformin Adverse Reaction (Verified 01/22/23 08:22) Diarrhea HPI Comprehensive Diabetes Asmnt Most Recent Diabetes Results: Microalb/Creat Ratio 13.7 ug/mg cr 09/25/22 Cholesterol 197 mg/dL 09/25/22 HDL Cholesterol 39 mg/dL 09/25/22 Triglycerides 327 mg/dL 09/25/22 Creatinine 0.99 mg/dL (0.5-1.4) 09/25/22 Blood Urea Nitrogen 29 mg/dL (9-16) H 09/25/22 Sodium 140 mmol/L (135-145) 09/25/22 Potassium 4.3 mmol/L (3.3-5.1) 09/25/22 Chloride 100 mmol/L (96-108) 09/25/22 Carbon Dioxide 31 mmol/L (22-29) H 09/25/22 Calcium 9.7 mg/dL (8.4-10.2) 09/25/22 AST 15 U/L (5-37) 09/25/22 ALT 16 U/L (0-40) 09/25/22 Total Protein 6.8 g/dL (6.5-8.0) 09/25/22 Albumin 4.2 g/dL (3.5-5.0) 09/25/22 PFSH Medical History Afib HLD (hyperlipidemia) HTN (hypertension) Lower extremity edema Pancreatitis T2DM (type 2 diabetes mellitus) Vitamin D deficiency Surgical History Hx of sinus surgery Previous back surgery History of cholecystectomy Family History Father No problems noted. Mother No problems noted. Alcohol intake: never Patient Tobacco Use Status: Never used Tobacco Current occupational status: unemployed Assessment & Plan Assessment & Plan (1) T2DM (type 2 diabetes mellitus): Code(s): E11.9 - Type 2 diabetes mellitus without complications Qualifiers: Diabetes mellitus senior care insulin use: without senior care use Diabetes mellitus complication status: with hyperglycemia Qualified Code(s): E11.65 - Type 2 diabetes mellitus with hyperglycemia Plan: Diabetes self-management education and support participation record Assessment/scale: 1= needs instructed? 2= needs review? 3= comprehend keep point? 4= demonstrates understanding/ competent? NC= Not Covered Topics Learning Objective: Initial visit Initial or post srvc Initial or post srvc Initial or post srvc Initial or post srvc Initial or post srvc Post srvc Comments Pre Edu-assessment/plan Outcome or reassess Outcome or reassess Outcome or reassess Outcome or reassess Outcome or reassess Outcome or reassess Diabetes pathophysiology 1 Healthy eating 2 Being active 1 Taking medication 1 Monitoring glucose 1 Acute complication Chronic complicated Lifestyle and healthy coping Diabetes distress in support ?Diabetes pathophysiology: ?Defined diabetes med identify own type of diabetes; list 3 options for treating diabetes Healthy eating: ?Described effect of type, amount and ?timing of food on blood glucose; list 3 methods for planning meal Being active: ?State effect of exercise on blood glucose level Taking medication: ?State effect of diabetes medications on diabetes; name diabetes medications taking, action and side effects Monitoring glucose: ?Identify recommended blood glucose targets and personal target Acute complication: ?List symptoms and treatment of hyper and hypoglycemia, DKA, sick day guidelines and guidelines for severe weather or situations of crisis and diabetes supply manage Chronic complication: ?To find the relationship of blood glucose levels to long-term complications of diabetes in screening and preventative measures Lifestyle and healthy coping: ?Described lifestyle and healthy coping strategies to rule out diabetes self-management Diabetes to stress and support: ?Recognize Diabetes to stress and be able to identified support options Plan Learning objectives: The patient was provided with verbal and written education on the following topics as outlined below. The patient met all learning objectives and was able to verbalize understanding and provide teach back of education topics discussed . The patient was provided with the opportunity to ask questions and all questions were answered. Patient Assessment Assess patient education level/literacy/barriers Patient questions/concerns, patient reports having type 2 diabetes for approximately 13 years. Last A1c on January 22 2023 7.7% Patient is currently taking Lantus 23 units daily Humalog a 7 units before meals What is Diabetes? Pathophysiology How the body produces and uses insulin Identify type of DM Risk factors Signs of Diabetes Brief overview of Diabetes Management Monitoring blood sugar Following a meal plan Regular exercise Maintaining a healthy weight Taking medication as needed Members of the care team (PCP, RN, MA, RD, CDE, wash tub machine operator) Blood glucose monitoring When/how often to test Target blood sugar ranges Patient using freestyle Lindsey 2 Patient's average glucose for the past 2 weeks 164 mg/dL Patient above target 27% Patient at target 73% Patient below target 0% Patient instructed to scan sensor more frequently, patient has gaps in data sensor use only 46% of the time Introduction to Nutrition Importance of healthy diet in managing DM Diet is personalized to individual preference Review patient?s regular diet/food preferences Who prepares meals/does food shopping/ Dining out?/ Barriers? How diet effects glucose Eating 3 balanced meals a day with small, healthy snacks between meals Review food groups Carbohydrates: What is a carbohydrate/Which food/food groups are considered carbohydrates Effect of carbohydrates on blood glucose Portion sizes Reading food labels Basic carb counting (if applicable per nursing assessment) Plate method Meal planning Recommendations: Follow plate method, consistent carbs and read nutritional labels. Smart Goal: Patient will work to keep meals between 45 to 60 g carb per meal Educational Materials: The patient was provided with the following written educational materials: Planning Healthy Meals Handout Patient Response to instructions: Comprehension of Instructions: Fair Readiness to make changes: Contemplation How confident they feel about making changes: Positive Patient Instructions: Include regular daily activity. ADA recommends 30 minutes of exercise 5 days a week. Weight loss talk to PCP or Online Content Editor before starting new plan. Test blood sugar as directed; Fasting and 2hpp largest meal. Watch trends in results. Utilize results and to assess how food, physical activity and medications affect blood sugar results. Bring glucometer or CGM to next visit. Be knowledgeable about diabetes medication, its action, side effects, efficacy, toxicity, prescribed dosage, appropriate timing and frequency of administration, effect of missed and delayed doses and instructions for storage, travel and safety. Problem solving techniques to monitor hypo/hyperglycemia episodes and treatments. Reduce risk reduction behaviors, smoking cessation, regular eye, foot and dental examinations. Follow-up with community health educator in 6 months Coding Level of Care Code Est Pt Level 1 (70579) Diagnoses Type 2 diabetes mellitus with hyperglycemia, without long-term current use of insulin E11.65 Diabetes mellitus senior care insulin use: without senior care use Diabetes mellitus complication status: with hyperglycemia
== END 2023-02-05 15:07 | disposition home or self-care (01) ==
PROVIDERS: PCP Internal Medicine; Visit Provider Registered Nurse Diabetes Educator
DX: E11.65 Type 2 diabetes mellitus with hyperglycemia (principal)

== ENCOUNTER → 2023-02-05 13:51 | Outpatient (BNVA) | payer MEDICARE, SELFPAY | PROVIDERS: PCP Internal Medicine; Visit Provider Registered Nurse Diabetes Educator | DX: E11.65 Type 2 diabetes mellitus with hyperglycemia (principal) | CPT/HCPCS: 99211 ==

== ENCOUNTER 2023-02-12 11:10 | Outpatient (REF) | payer MEDICARE, SELFPAY ==
[2023-02-12 11:57] LABS: Prothrombin Time 36.4 SEC (11.1-13.3)
== END 2023-02-12 11:11 | disposition home or self-care (01) ==
LOC: HO.LNP 11:10
PROVIDERS: Visit Provider Internal Medicine
DX: I48.0 Paroxysmal atrial fibrillation (principal); Z79.01 Long term (current) use of anticoagulants
CPT/HCPCS: 85610

== ENCOUNTER 2023-03-01 10:25 | Outpatient (REF) | payer MEDICARE, SELFPAY ==
[2023-03-01 11:21] LABS: INTERNATIONAL NORM RATIO 1.6 (0.9-1.1); Prothrombin Time 19.4 SEC (11.1-13.3)
== END 2023-03-01 10:26 | disposition home or self-care (01) ==
LOC: HO.LNP 10:25
PROVIDERS: Visit Provider Internal Medicine
DX: I48.0 Paroxysmal atrial fibrillation (principal); Z79.01 Long term (current) use of anticoagulants
CPT/HCPCS: 85610

== ENCOUNTER 2023-03-08 10:36 | Outpatient (REF) | payer MEDICARE, SELFPAY ==
[2023-03-08 10:59] LABS: INTERNATIONAL NORM RATIO 1.9 (0.9-1.1); Prothrombin Time 23.4 SEC (11.1-13.3)
== END 2023-03-08 10:37 | disposition home or self-care (01) ==
LOC: HO.LNP 10:36
PROVIDERS: Visit Provider Internal Medicine
DX: I48.0 Paroxysmal atrial fibrillation (principal); Z79.01 Long term (current) use of anticoagulants
CPT/HCPCS: 85610

== ENCOUNTER 2023-03-15 10:57 | Outpatient (REF) | payer MEDICARE, SELFPAY ==
[2023-03-15 11:18] LABS: INTERNATIONAL NORM RATIO 2.4 (0.9-1.1); Prothrombin Time 29.2 SEC (11.1-13.3)
== END 2023-03-15 10:58 | disposition home or self-care (01) ==
LOC: HO.LNP 10:57
PROVIDERS: Visit Provider Internal Medicine
DX: I48.0 Paroxysmal atrial fibrillation (principal); Z79.01 Long term (current) use of anticoagulants
CPT/HCPCS: 85610

== ENCOUNTER 2023-03-28 10:51 | Outpatient (REF) | payer MEDICARE, SELFPAY ==
[2023-03-28 11:49] LABS: Estimated Average Glucose 157 mg/dL; Hemoglobin A1c % 7.1 % (<6.0); INTERNATIONAL NORM RATIO 1.9 (0.9-1.1); Prothrombin Time 23.7 SEC (11.1-13.3)
[2023-03-28 11:58] LABS: Alanine Aminotransferase 16 U/L (0-40); Albumin Level 4.5 g/dL (3.5-5.0); Alkaline Phosphatase 61 U/L (39-117); Aspartate Amino Transferase 18 U/L (5-37); Bilirubin Direct 0.2 mg/dL (0.0-0.5); Bilirubin Total 0.4 mg/dL (0.0-1.0); Cholesterol 201 mg/dL (<200); Glucose Fasting 149 mg/dL (60-99); HDL Cholesterol 41 mg/dL (>40); LDL Cholesterol Calculated 111 mg/dL (<100); Triglycerides 247 mg/dL (<150)
[2023-03-28 12:34] LABS: Reflex LDLD? No
== END 2023-03-28 10:52 | disposition home or self-care (01) ==
LOC: HO.LNP 10:51
PROVIDERS: Visit Provider Internal Medicine
DX: I48.0 Paroxysmal atrial fibrillation (principal); E11.40 Type 2 diabetes mellitus with diabetic neuropathy, unspecified; Z79.01 Long term (current) use of anticoagulants
CPT/HCPCS: 80061; 80076; 82947; 83036; 85610

== ENCOUNTER 2023-04-04 10:31 | Outpatient (REF) | payer MEDICARE, SELFPAY ==
[2023-04-04 11:31] LABS: INTERNATIONAL NORM RATIO 2.3 (0.9-1.1); Prothrombin Time 28.3 SEC (11.1-13.3)
== END 2023-04-04 10:32 | disposition home or self-care (01) ==
LOC: HO.LNP 10:31
PROVIDERS: Visit Provider Internal Medicine
DX: I48.0 Paroxysmal atrial fibrillation (principal); Z79.01 Long term (current) use of anticoagulants
CPT/HCPCS: 85610

== ENCOUNTER 2023-07-02 11:00 | Outpatient (REF) | payer MEDICARE, SELFPAY ==
[2023-07-02 11:16] LABS: INTERNATIONAL NORM RATIO 2.4 (0.9-1.1); Prothrombin Time 28.7 SEC (11.1-13.3)
== END 2023-07-02 11:01 | disposition home or self-care (01) ==
LOC: HO.LNP 11:00
PROVIDERS: Visit Provider Internal Medicine
DX: I48.0 Paroxysmal atrial fibrillation (principal); Z79.01 Long term (current) use of anticoagulants
CPT/HCPCS: 85610

== ENCOUNTER 2023-07-16 10:43 | Outpatient (REF) | payer MEDICARE, SELFPAY ==
[2023-07-16 11:42] LABS: INTERNATIONAL NORM RATIO 2.3 (0.9-1.1); Prothrombin Time 27.7 SEC (11.1-13.3)
== END 2023-07-16 10:44 | disposition home or self-care (01) ==
LOC: HO.LNP 10:43
PROVIDERS: Visit Provider Internal Medicine
DX: Z79.01 Long term (current) use of anticoagulants (principal)
CPT/HCPCS: 85610

== ENCOUNTER 2023-07-23 07:52 | Outpatient (AMB) | payer MEDICARE, SELFPAY ==
--- NOTE | 2023-07-23 07:53 | MHC.OFFVIS ---
Vital Signs 07/23/23 07:54 Height 6 ft 2 in Weight 252 lb 6.868 oz BMI 32.4 BP 124/68 Blood Pressure Location Lt brachial Position Sitting Pulse 64 Pulse Source Pulse Oximeter Intake Visit Reasons: Type 2 DM-confirmed Intake Note: Patient present today to follow up on Type 2 Diabetes Mellitus. 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 Initially diagnosed with T2DM in 2007. Was initially started on treatment with Metformin, but was unable to tolerate this due to GI distress. He trialed Januvia as well as Farxiga, Jardiance and Invokana, but stopped these as they were ineffective. He has a history of gallstone pancreatitis 10 yrs ago , and GLP-1 is contraindicated. Current regimen Basaglar 23 units qHS and Humalog 7 units AC. . Currently using the [employer] Lindsey CGM. . Lindsey download shows he is using the sensor 87% of the time. Average glucose is 171 with variability of 16.9%. 68% in target range with 32% hyperglycemia and no hypoglycemia No true hypoglycemia since his last visit. Is aware of the rule of 15's to treat hypoglycemia. Does check sugar after to ensure it is rising. Denies a Family History of T2DM. Has eyes checked yearly, last eye exam - last appt 6 mos ago . No retinopathy. Has neuropathy, does not see podiatry. Foot exam completed 12/17/2019. Has nephropathy, on Losartan 100 mg PO daily. UAC 13.7 09/25/2022. Has HLD. On Pravastatin 20 mg PO daily. Last LDL 93 09/25/2022. Developed myalgias with Rosuvastatin 10 mg PO daily, stopped this on 07/04/2020. Denies CAD. Diet: Has completely cut out sugars and is counting carbohydrate. Weight: Is losing. Seeing nutrition and CDE. Labs: Laboratory Tests 09/25/22 09/25/2209/25/23 08:00 08:00 08:00 Creatinine 0.99 Estimated GFR > 60 Hemoglobin A1c % 7.3 LDL Cholesterol, Calc 93 Microalb/Creat Ratio 13.7 PFSH Medical History Afib HLD (hyperlipidemia) HTN (hypertension) Lower extremity edema Pancreatitis T2DM (type 2 diabetes mellitus) Vitamin D deficiency Surgical History Hx of sinus surgery Previous back surgery History of cholecystectomy Family History Father No problems noted. Mother No problems noted. Social History Alcohol intake: never Patient Tobacco Use Status: Never used Tobacco Current occupational status: unemployed Physical Exam Vital Signs: Last Vital Signs Pulse 64 07/23/23 07:54 BP 124/68 07/23/23 07:54 BMI result Body Mass Index 32.4 Absence of Cushingoid features. Absence of acromegalic features. Neck exam reveals nl size thyroid about 15 gms. No thyroid nodules palpable. No carotid bruits present. Lungs CTA. Heart S1 S2, Reg R/R. No M/R/ G. Skin exam reveals absence of vitiligo or acanthosis nigricans. Abdominal exam reveals Soft NT/ND with NA BS. No organomegaly present. Neck Other: . Extrem Other: Visual exam of foot performed. No ulcerations or open lesions. No onchomycosis, no callouses. Has some scabs present over some toes. Pulses 2 + distally Sensation abscess to monofilament exam. Vibratory sensation sensed is absent with 128 Hz tuning fork Results AMB Hemoglobin A1c AMB Hemoglobin A1c 7.1 % Last Edit by DAVIN Almaraz on 07/23/23 08:15 Results Reviewed Results Reviewed: Laboratory Last Values Glucose (Clinic) 184 mg/dL (60-115) H 07/23/23 08:01 Hgb A1c (Clinic) 7.1 % (4.0-6.0) H 07/23/23 08:14 Assessment & Plan Assessment & Plan (1) T2DM (type 2 diabetes mellitus): Code(s): E11.9 - Type 2 diabetes mellitus without complications Category: Medical Qualifiers: Diabetes mellitus complication status: with hyperglycemia Diabetes mellitus ferry terminal agent insulin use: without penitentiary use Qualified Code(s): E11.65 - Type 2 diabetes mellitus with hyperglycemia Plan: This 77-year-old white male with history of type 2 diabetes being treated with basal-bolus insulin with good adequate glycemic control and no known microvascular or macrovascular complications. Plan is to continue the current regimen. Considering age and other comorbidities, patient's A1c is at goal. He can returned to the care of his primary care provider. Should his HbA1c deteriorate to > 8%, he is returned back to endocrinology Orders: Orders AMB Hemoglobin A1c Today E11.65 - Type 2 diabetes mellitus with hyperglycemia, Z13.9 - Encounter for screening, unspecified Coding Level of Care Code Est Pt Level 4 (22817) Diagnoses Type 2 diabetes mellitus with hyperglycemia, without long-term current use of insulin E11.65 Diabetes mellitus complication status: with hyperglycemia Diabetes mellitus ferry terminal agent insulin use: without penitentiary use
[2023-07-23 07:54] VITALS: BP 124/68; PULSE 64; BMI 32.4
[2023-07-23 08:06] LABS: Glucose, Whole Blood 184 mg/dL (60-115)
== END 2023-07-23 08:10 | disposition home or self-care (01) ==
PROVIDERS: PCP Internal Medicine; Visit Provider Internal Medicine Endocrinology, Diabetes & Metabolism
DX: Z13.9 Encounter for screening, unspecified (principal); E11.65 Type 2 diabetes mellitus with hyperglycemia
CPT/HCPCS: 99214

== ENCOUNTER → 2023-07-23 07:52 | Outpatient (BNVA) | payer MEDICARE, SELFPAY | PROVIDERS: PCP Internal Medicine; Visit Provider Internal Medicine Endocrinology, Diabetes & Metabolism | DX: E11.65 Type 2 diabetes mellitus with hyperglycemia (principal); Z79.4 Long term (current) use of insulin | CPT/HCPCS: 82947; 83036; 99212 ==

== ENCOUNTER 2023-07-30 11:26 | Outpatient (REF) | payer MEDICARE, SELFPAY ==
[2023-07-30 11:51] LABS: INTERNATIONAL NORM RATIO 2.2 (0.9-1.1)
== END 2023-07-30 11:27 | disposition home or self-care (01) ==
LOC: HO.LNP 11:26
PROVIDERS: Visit Provider Internal Medicine
DX: I48.0 Paroxysmal atrial fibrillation (principal); Z79.01 Long term (current) use of anticoagulants
CPT/HCPCS: 85610

== ENCOUNTER 2023-08-06 08:55 | Outpatient (AMB) | payer MEDICARE, SELFPAY ==
--- NOTE | 2023-08-06 09:44 | A.OFFVIS_ITS ---
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 Accompanied by: Spouse Allergies lisinopril Adverse Reaction (Verified 07/23/23 07:58) Cough metformin Adverse Reaction (Verified 07/23/23 07:58) Diarrhea HPI Comprehensive Diabetes Asmnt Most Recent Diabetes Results: Hemoglobin A1c 10.7 % 11/26/19 Microalb/Creat Ratio 13.7 ug/mg cr 09/25/22 Cholesterol 201 mg/dL (<200) H 03/28/23 HDL Cholesterol 41 mg/dL (>40) 03/28/23 Triglycerides 247 mg/dL (<150) H 03/28/23 Creatinine 0.99 mg/dL (0.5-1.4) 09/25/22 Blood Urea Nitrogen 29 mg/dL (9-16) H 09/25/22 Sodium 140 mmol/L (135-145) 09/25/22 Potassium 4.3 mmol/L (3.3-5.1) 09/25/22 Chloride 100 mmol/L (96-108) 09/25/22 Carbon Dioxide 31 mmol/L (22-29) H 09/25/22 Calcium 9.7 mg/dL (8.4-10.2) 09/25/22 AST 18 U/L (5-37) 03/28/23 ALT 16 U/L (0-40) 03/28/23 Total Protein 8.0 g/dL (6.5-8.0) 03/28/23 Albumin 4.5 g/dL (3.5-5.0) 03/28/23 [facility] Medical History Afib HLD (hyperlipidemia) HTN (hypertension) Lower extremity edema Pancreatitis T2DM (type 2 diabetes mellitus) Vitamin D deficiency Surgical History Hx of sinus surgery Previous back surgery History of cholecystectomy Family History Father No problems noted. Mother No problems noted. Social History Alcohol intake: never Patient Tobacco Use Status: Never used Tobacco Current occupational status: unemployed Assessment & Plan Assessment & Plan (1) T2DM (type 2 diabetes mellitus): Code(s): E11.9 - Type 2 diabetes mellitus without complications Qualifiers: Diabetes mellitus care home insulin use: without care home use Diabetes mellitus complication status: with hyperglycemia Qualified Code(s): E11.65 - Type 2 diabetes mellitus with hyperglycemia Plan: Diabetes self-management education and support participation record Assessment/scale: 1= needs instructed? 2= needs review? 3= comprehend keep point? 4= demonstrates understanding/ competent? NC= Not Covered Topics Learning Objective: Initial visit Initial or post srvc Initial or post srvc Initial or post srvc Initial or post srvc Initial or post srvc Post srvc Comments Pre Edu-assessment/plan Outcome or reassess Outcome or reassess Outcome or reassess Outcome or reassess Outcome or reassess Outcome or reassess Diabetes pathophysiology 1 Healthy eating 2 3 Being active 1 3 Taking medication 1 3 Monitoring glucose 1 3 Acute complication 1 Chronic complicated 2 Lifestyle and healthy coping 1 Diabetes distress in support 1 ?Diabetes pathophysiology: ?Defined diabetes med identify own type of diabetes; list 3 options for treating diabetes Healthy eating: ?Described effect of type, amount and ?timing of food on blood glucose; list 3 methods for planning meal Being active: ?State effect of exercise on blood glucose level Taking medication: ?State effect of diabetes medications on diabetes; name diabetes medications taking, action and side effects Monitoring glucose: ?Identify recommended blood glucose targets and personal target Acute complication: ?List symptoms and treatment of hyper and hypoglycemia, DKA, sick day guidelines and guidelines for severe weather or situations of crisis and diabetes supply manage Chronic complication: ?To find the relationship of blood glucose levels to long- term complications of diabetes in screening and preventative measures Lifestyle and healthy coping: ?Described lifestyle and healthy coping strategies to rule out diabetes self-management Diabetes to stress and support: ?Recognize Diabetes to stress and be able to identified support options Learning objectives: The patient was provided with verbal and written education on the following topics as outlined below. Assess patient education level/literacy/barriers, patient will is currently on Coumadin which limits intake of leafy greens, and some other low carb vegetables Patient questions/concerns, patient last A1c 7.1% on 07/23/2023, patient uses freestyle Lindsey to monitor glucose Patient's average glucose in the past 2 weeks 186 mg/dL Patient is above target 51% Patient is at target 49% Patient is below target 0% Recommended to patient to contact DME, in upgrade to Lindsey 3 sensor, instructed patient if he is any questions about new sensor to contact hospice volunteer The patient met all learning objectives and was able to verbalize understanding and provide teach back of education topics discussed . The patient was provided with the opportunity to ask questions and all questions were answered. Topics covered in today?s session included: Medications (If applicable) * Name of medication? * Dosing/administration instructions? * Mechanism of action? * Potential side effects? * Potential adverse reaction and appropriate treatment? * Review onset, peak, duration Assess for concerns re: insurance coverage, cost, barriers to compliance Insulin/Injectables (If applicable) * Storage/care of insulin?? * Injection sites? * Site rotation? * Onset, peak, duration * Drawing up insulin? * Injecting insulin/other injectables? * Sharps disposal Continuous blood glucose monitoring (if applicable) Hypoglycemia and Hyperglycemia * Signs and symptoms? * Causes?? * Treatment? * Preventing hypoglycemia? * When to seek medical attention * Blood glucose targets and how you feel when your blood glucose is in and out of your target ranges. * Monitoring and knowing your A1C. * What can make blood glucose go up and down and preventing high and low blood glucose. * Review of blood sugar targets in expected goal range and outside of expected goal range. * Problem solving and preventing hyper/hypoglycemia. * Sick day management of diabetes. * Using blood sugar results in decision making process in managing diabetes. ?Patient was receptive to information provided and participated in the discussion. Asked?appropriate questions and demonstrated good understanding of the topics discussed.? ? Educational Materials: The patient was provided with the following written educational materials: Target Goal handout Smart Goal Assessment:? Patient will keep meals between 45-60 g of carbohydrate Pt met goal more than 50% New Smart Goal: Patient will increase Basaglar to 26 units daily, contact hospice volunteer if episodes of hypoglycemia increase Patient Response to instructions: Comprehension of Instructions: good Readiness to make changes:? Contemplating How confident they feel about making changes: Positive Plan Coding Level of Care Code Est Pt Level 1 (66345) Diagnoses Type 2 diabetes mellitus with hyperglycemia, without long-term current use of insulin E11.65 Diabetes mellitus bed bug exterminator insulin use: without bed bug exterminator use Diabetes mellitus complication status: with hyperglycemia
== END 2023-08-06 09:48 | disposition home or self-care (01) ==
PROVIDERS: PCP Internal Medicine; Visit Provider Registered Nurse Diabetes Educator
DX: E11.65 Type 2 diabetes mellitus with hyperglycemia (principal)

== ENCOUNTER → 2023-08-06 08:55 | Outpatient (BNVA) | payer MEDICARE, SELFPAY | PROVIDERS: PCP Internal Medicine; Visit Provider Registered Nurse Diabetes Educator | DX: E11.65 Type 2 diabetes mellitus with hyperglycemia (principal) | CPT/HCPCS: 99211 ==

== ENCOUNTER 2023-08-13 10:36 | Outpatient (REF) | payer MEDICARE, SELFPAY ==
[2023-08-13 11:22] LABS: INTERNATIONAL NORM RATIO 2.3 (0.9-1.1); Prothrombin Time 28.5 SEC (11.1-13.3)
== END 2023-08-13 10:37 | disposition home or self-care (01) ==
LOC: HO.LNP 10:36
PROVIDERS: Visit Provider Internal Medicine
DX: I48.0 Paroxysmal atrial fibrillation (principal); Z79.01 Long term (current) use of anticoagulants
CPT/HCPCS: 85610

== ENCOUNTER 2023-08-27 10:54 | Outpatient (REF) | payer MEDICARE, SELFPAY ==
[2023-08-27 11:15] LABS: INTERNATIONAL NORM RATIO 2.7 (0.9-1.1); Prothrombin Time 32.3 SEC (11.1-13.3)
== END 2023-08-27 10:55 | disposition home or self-care (01) ==
LOC: HO.LNP 10:54
PROVIDERS: Visit Provider Internal Medicine
DX: I48.0 Paroxysmal atrial fibrillation (principal); Z79.01 Long term (current) use of anticoagulants
CPT/HCPCS: 85610

== ENCOUNTER 2023-09-10 10:55 | Outpatient (REF) | payer MEDICARE, SELFPAY ==
[2023-09-10 11:07] LABS: INTERNATIONAL NORM RATIO 2.8 (0.9-1.1); Prothrombin Time 34.1 SEC (11.1-13.3)
== END 2023-09-10 10:56 | disposition home or self-care (01) ==
LOC: HO.LNP 10:55
PROVIDERS: Visit Provider Internal Medicine
DX: I48.0 Paroxysmal atrial fibrillation (principal); Z79.01 Long term (current) use of anticoagulants
CPT/HCPCS: 85610

== ENCOUNTER 2023-09-24 10:50 | Outpatient (REF) | payer MEDICARE, SELFPAY ==
[2023-09-24 11:12] LABS: INTERNATIONAL NORM RATIO 2.5 (0.9-1.1); Prothrombin Time 30.7 SEC (11.1-13.3)
== END 2023-09-24 10:51 | disposition home or self-care (01) ==
LOC: HO.LNP 10:50
PROVIDERS: Visit Provider Internal Medicine
DX: I48.0 Paroxysmal atrial fibrillation (principal); Z79.01 Long term (current) use of anticoagulants
CPT/HCPCS: 85610

== ENCOUNTER 2023-09-30 08:50 | Outpatient (AMB) | payer MEDICARE, SELFPAY ==
--- NOTE | 2023-09-30 08:51 | A.OFFVIS_ITS ---
Vital Signs 09/30/23 08:52 Height 6 ft 2 in Weight 255 lb 15.307 oz BMI 32.9 BP 132/74 Blood Pressure Location Lt brachial Position Sitting Pulse 64 Pulse Source Pulse Oximeter Intake Visit Reasons: DM/CONFIRMED Intake Note: New Patient presents today to established treatment for DM Type 2 Last Diabetes Eye Exam: 03/2023 Last Podiatry Exam- Last seen 01/16/2022 Most recent HbA1c- 7.1 % 07/23/2023 Random Glucose: 144 mg/dL Dipper Fish Required: No Accompanied by: Self / Same As Patient Allergies lisinopril Adverse Reaction (Verified 09/30/23 08:56) Cough metformin Adverse Reaction (Verified 09/30/23 08:56) Diarrhea Medication List - Last Reconciled 09/30/23 by Shayy Freitas PA-C acetaminophen ER (Tylenol Arthritis Pain) 650 mg PO Q12H PRN 30 days atenolol 75 mg PO BID blood sugar diagnostic (FreeStyle Lite Strips) 4 times a day; blood-glucose meter (FreeStyle Lite Meter kit) As directed cholecalciferol (vitamin D3) 50 mcg PO DAILY 30 days clotrimazole-betamethasone 1-0.05 % appl topical finasteride 5 mg PO DAILY flash glucose scanning reader (StellarStyle Lindsey 14 Day [place]) As directed flash glucose sensor (FreeStyle Lindsey 14 Day Sensor kit) Once every 14 days flu vacc [id number](65yr up)-PF mL IM furosemide 20 mg PO DAILY insulin glargine (Basaglar KwikPen U-100 Insulin) 26 units (0.26 mL) subcut DAILY insulin lispro (Humalog KwikPen (U-100) Insulin) 6 units (0.06 mL) subcut TID lancets (FreeStyle Lancets) 4x daily losartan-hydrochlorothiazide 100-25 mg 1 tab PO DAILY paroxetine HCl 20 mg PO QAM pen needle, diabetic (BD Ultra-Fine Micro Pen Needle) once daily with insulin pen needle, diabetic (BD Ultra-Fine Micro Pen Needle) 3 tmes daily pen needle, diabetic (Pen Needle) 4x daily pen needle, diabetic (BD Hui 2nd Gen Pen Needle) 4 times daily pravastatin 20 mg PO BEDTIME 90 days warfarin 7 mg PO DAILY warfarin 0 mg PO HPI HPI DM/CONFIRMED: Details: Patient is a 77 YO Male with PMHx T2DM, HTN, HLD, paroxysmal AFib and pancreatitis who is seen in F/U for T2DM. Initially diagnosed with T2DM in 2007. He last saw Dr. Murcia in July. Was initially started on treatment with Metformin, but was unable to tolerate this due to GI distress. He trialed Januvia as well as Farxiga, Jardiance and Invokana, but stopped these as they were ineffective. He has a history of gallstone pancreatitis 10 yrs ago , and GLP-1 is contraindicated. Current regimen Basaglar 22 units qHS and Humalog 5-6 units AC. Currently using the [employer] Lindsey CGM. . Lindsey download shows he is using the sensor 86% of the time. Average glucose is 161 with variability of 21.3%. 74% in target range with 26% hyperglycemia and no hypoglycemia He did have 1 true hypoglycemic events since his last. He states it was his own fault because he accidentally gave himself 22 units of Humalog instead of his Basaglar. He treated it with candy.. Is aware of the rule of 15's to treat hypoglycemia. Does check sugar after to ensure it is rising. Denies a Family History of T2DM. Has eyes checked yearly, last eye exam - No retinopathy. Has neuropathy, does not see podiatry. He finds this on helpful. He manages his feet on his own. He states he has no sensation in his feet. He does not have pain. Has nephropathy, on Losartan 100 mg PO daily. UAC 13.7 09/25/2022. Has HLD. On Pravastatin 20 mg PO daily. Last LDL 111, 04/10. Developed myalgias with Rosuvastatin 10 mg PO daily, stopped this on 07/04/2020. Denies CAD. Diet: He does have some dietary indiscretions but tries to avoid carbs. Weight: Is losing. Seeing nutrition and CDE. CV: Blood pressure today in the office is 132/74. He is currently on losartan 100 mg/hydrochlorothiazide 25 mg, furosemide 20 mg as needed, atenolol 75 mg b[facility]i.d. [facility] Medical History (Updated 09/30/23 @ 09:26 by Shayy Freitas PA-C) Vitamin D deficiency Pancreatitis Afib Lower extremity edema HLD (hyperlipidemia) HTN (hypertension) Surgical History Hx of sinus surgery Previous back surgery History of cholecystectomy Family History Father No problems noted. Mother No problems noted. Social History Alcohol intake: never Patient Tobacco Use Status: Never used Tobacco Current occupational status: unemployed Physical Exam Vital Signs: Last Vital Signs Pulse 64 09/30/23 08:52 BP 132/74 09/30/23 08:52 BMI result Body Mass Index 32.9 Const Orientation/consciousness: patient oriented x3 Neck Neck: Yes no lymphadenopathy Thyroid: Thyroid normal Carotids: no bruits Resp Auscultation: clear to auscultation bilaterally Cardio Rate: regular rate Rhythm: regular rhythm Heart sounds: S1 normal heart sound present and S2 normal heart sound present Peripheral pulses: dorsalis pedis present Neuro General: patient oriented x3, gait normal and no focal motor deficits Extrem Other: Monofilament sensation not present bilaterally. Vibratory sensation not present bilaterally. Skin intact. General: Yes normal to inspection Results Reviewed Results Reviewed: Laboratory Tests 09/25/22 03/28/23 07/23/23 08:00 08:15 08:14 Sodium 140 Potassium 4.3 Chloride 100 Carbon Dioxide 31 H Anion Gap 13 BUN 29 H Creatinine 0.99 Estimated GFR > 60 Hgb A1c (Clinic) 7.1 H AST 18 ALT 16 Triglycerides 247 H Cholesterol 201 H LDL Cholesterol, Calc 111 H HDL Cholesterol 41 Assessment & Plan Assessment & Plan (1) Poorly controlled type 2 diabetes mellitus with peripheral neuropathy: Code(s): E11.42 - Type 2 diabetes mellitus with diabetic polyneuropathy; E11.65 - Type 2 diabetes mellitus with hyperglycemia Category: Medical Plan: I have increased his mealtime insulin. We discussed increasing the dinnertime dosage to 8-10 units. He has glucose tabs at home. Declines spray. Understands rule the 15s. Will follow-up in 3 months. Labs prior to appointment. (2) HTN (hypertension): Code(s): I10 - Essential (primary) hypertension Category: Medical Qualifiers: Hypertension type: unspecified Qualified Code(s): I10 - Essential (primary) hypertension Plan: BP WNL. Continue current regimen (3) HLD (hyperlipidemia): Code(s): E78.5 - Hyperlipidemia, unspecified Category: Medical Qualifiers: Hyperlipidemia type: unspecified Qualified Code(s): E78.5 - Hyperlipidemia, unspecified Plan: Continue pravastatin. Reviewed last lipids. States that he just had labs today and he did them prior to his appointment. Unfortunately, they are not back yet in the system. He does have an upcoming appointment with his PCP. Orders: Orders Hemoglobin A1c 3 Months E11.65 - Type 2 diabetes mellitus with hyperglycemia Medications: Changed From insulin lispro (Humalog KwikPen (U-100) Insulin) Dial and inject 6 units under skin 3 times daily. 6 units (0.06 mL) subcut TID 15 mL 5RF E11.65 - Type 2 diabetes mellitus with hyperglycemia To insulin lispro (Humalog KwikPen (U-100) Insulin) inject 6 units with renate akfast, inject 6 units with lunch, inject 8 units with supper 15 mL 5RF E11.65 - Type 2 diabetes mellitus with hyperglycemia From insulin glargine (Basaglar KwikPen U-100 Insulin) 26 units (0.26 mL) subcut DAILY 30 mL 4RF E11.65 - Type 2 diabetes mellitus with hyperglycemia To insulin glargine (Basaglar KwikPen U-100 Insulin) 22 units (0.22 mL) subcut DAILY 30 mL 4RF E11.65 - Type 2 diabetes mellitus with hyperglycemia Coding Level of Care Code Est Pt Level 4 (97249) Complex EM visit Add On G2211 Diagnoses Poorly controlled type 2 diabetes mellitus with peripheral neuropathy E11.42; E11.65 Hypertension, unspecified type I10 Hypertension type: unspecified Hyperlipidemia, unspecified hyperlipidemia type E78.5 Hyperlipidemia type: unspecified
[2023-09-30 08:52] VITALS: BP 132/74; PULSE 64; BMI 32.9
[2023-09-30 09:03] LABS: Glucose, Whole Blood 144 mg/dL (60-115)
== END 2023-09-30 09:20 | disposition home or self-care (01) ==
PROVIDERS: PCP Internal Medicine; Visit Provider Physician Assistant
DX: E11.42 Type 2 diabetes mellitus with diabetic polyneuropathy (principal); E11.65 Type 2 diabetes mellitus with hyperglycemia; I10 Essential (primary) hypertension; E78.5 Hyperlipidemia, unspecified
CPT/HCPCS: 99214; G2211

== ENCOUNTER → 2023-09-30 08:50 | Outpatient (BNVA) | payer MEDICARE, SELFPAY | PROVIDERS: PCP Internal Medicine; Visit Provider Physician Assistant | DX: E11.42 Type 2 diabetes mellitus with diabetic polyneuropathy (principal); E11.65 Type 2 diabetes mellitus with hyperglycemia; E78.5 Hyperlipidemia, unspecified; I10 Essential (primary) hypertension | CPT/HCPCS: 82947; 99212 ==

== ENCOUNTER 2023-09-30 10:45 | Outpatient (REF) | payer MEDICARE, SELFPAY ==
[2023-09-30 11:12] LABS: Appearance Urine Clear; Color Urine Yellow; Glucose Urine UA Negative (Negative); Leukocyte Esterase Urine Negative (Negative); Nitrite Urine Negative (Negative); Urine Blood Negative (Negative); Urine Ketones Negative (Negative); Urine Protein Negative (Neg-Trace)
[2023-09-30 11:15] LABS: Bacteria Urine None Seen (None Seen); Hyaline Casts Urine 0-2 /LPF (0-2); RBC Urine 0-2 /HPF (0-2); Squamous Epithelial Cell Urine 0-2 /HPF (0-2); WBC Urine 0-5 /HPF (0-5)
[2023-09-30 11:30] LABS: Basophils Percent Auto 0.5 % (0-2); Eosinophils Absolute Auto 0.2 X10*3/uL (0.0-0.4); Hematocrit 47.7 % (42.0-52.0); Hemoglobin 15.7 g/dl (14.0-18.0); Imm Gran Abs Auto 0.04 X10*3/uL (0.00-0.03); Imm Gran Pct Auto 0.5 % (0.0-0.4); Lymphocytes Absolute Auto 2.2 X10*3/uL (1.2-4.9); Lymphocytes Percent Auto 26.6 % (20-40); MANUAL DIFF FLAG SCAN; Mean Corpuscular HGB Conc 32.9 g/dl (31.0-36.0); Mean Corpuscular Hemoglobin 32.6 pg (27.0-33.0); Mean Corpuscular Volume 99.2 fL (80.0-98.0); Monocytes Absolute Auto 0.6 X10*3/uL (0.1-1.2); Monocytes Percent Auto 7.4 % (2-11); Neutrophils Absolute Auto 5.1 x10*3/uL (2.0-8.3); PLT CLUMP 1; Red Blood Count 4.81 X10*6/uL (4.60-5.80); Red Cell Distribution Width 13.4 % (11.0-16.0); SCAN SMEAR FLAG 1; White Blood Count 8.1 X10*3/uL (4.8-10.8)
[2023-09-30 11:45] LABS: Creatinine Urine 135.02 mg/dL; Microalbum/Creatinine Ratio Ur 19.2 ug/mg cr (<30)
[2023-09-30 11:46] LABS: Estimated Average Glucose 160 mg/dL; Hemoglobin A1c % 7.2 % (<6.0)
[2023-09-30 11:48] LABS: Alanine Aminotransferase 15 U/L (0-40); Albumin Level 4.1 g/dL (3.5-5.0); Alkaline Phosphatase 58 U/L (39-117); Anion Gap 12 (12-20); Aspartate Amino Transferase 17 U/L (5-37); Bilirubin Total 0.3 mg/dL (0.0-1.0); Blood Urea Nitrogen 25 mg/dL (9-16); Calcium 8.9 mg/dL (8.4-10.2); Carbon Dioxide 30 mmol/L (22-29); Chloride 105 mmol/L (96-108); Cholesterol 170 mg/dL (<200); Estimated Glomerular Filt Rate > 60; Glucose Fasting 157 mg/dL (60-99); HDL Cholesterol 42 mg/dL (>40); LDL Cholesterol Calculated 89 mg/dL (<100); Potassium 4.3 mmol/L (3.3-5.1); Sodium 143 mmol/L (135-145); Total Protein 7.2 g/dL (6.5-8.0); Triglycerides 198 mg/dL (<150)
[2023-09-30 12:05] LABS: Mean Platelet Volume 11.1 fL (9.4-12.4); Platelet Count 117 X10*3/uL (160-400)
[2023-09-30 12:06] LABS: SLIDE REVIEW VERIFIED
[2023-09-30 12:19] LABS: PSA,Total (Free>4and<10) 1.16 ng/mL (0.00-4.00)
== END 2023-09-30 10:46 | disposition home or self-care (01) ==
LOC: HO.LNP 10:45
PROVIDERS: Visit Provider Internal Medicine
DX: E78.2 Mixed hyperlipidemia (principal); E11.40 Type 2 diabetes mellitus with diabetic neuropathy, unspecified; D64.9 Anemia, unspecified; I50.21 Acute systolic (congestive) heart failure; Z12.5 Encounter for screening for malignant neoplasm of prostate
CPT/HCPCS: 80053; 80061; 81001; 82043; 82570; 83036; 84153; 85025

== ENCOUNTER 2023-10-07 10:30 | Outpatient (REF) | payer MEDICARE, SELFPAY ==
[2023-10-07 10:42] LABS: INTERNATIONAL NORM RATIO 3.1 (0.9-1.1); Prothrombin Time 37.8 SEC (11.1-13.3)
== END 2023-10-07 10:31 | disposition home or self-care (01) ==
LOC: HO.LNP 10:30
PROVIDERS: Visit Provider Internal Medicine
DX: I48.0 Paroxysmal atrial fibrillation (principal); Z79.01 Long term (current) use of anticoagulants
CPT/HCPCS: 85610

== ENCOUNTER 2023-10-22 11:24 | Outpatient (REF) | payer MEDICARE, SELFPAY ==
[2023-10-22 12:10] LABS: INTERNATIONAL NORM RATIO 3.1 (0.9-1.1); Prothrombin Time 37.2 SEC (11.1-13.3)
== END 2023-10-22 11:25 | disposition home or self-care (01) ==
LOC: HO.LNP 11:24
PROVIDERS: Visit Provider Internal Medicine
DX: I48.0 Paroxysmal atrial fibrillation (principal); Z79.01 Long term (current) use of anticoagulants
CPT/HCPCS: 85610

== ENCOUNTER 2023-11-07 10:28 | Outpatient (REF) | payer MEDICARE, SELFPAY ==
[2023-11-07 10:46] LABS: INTERNATIONAL NORM RATIO 3.1 (0.9-1.1); Prothrombin Time 37.5 SEC (11.1-13.3)
== END 2023-11-07 10:29 | disposition home or self-care (01) ==
LOC: HO.LNP 10:28
PROVIDERS: Visit Provider Internal Medicine
DX: I48.0 Paroxysmal atrial fibrillation (principal); Z79.01 Long term (current) use of anticoagulants
CPT/HCPCS: 85610

== ENCOUNTER 2023-11-19 11:13 | Outpatient (REF) | payer MEDICARE, SELFPAY ==
[2023-11-19 11:34] LABS: INTERNATIONAL NORM RATIO 2.9 (0.9-1.1); Prothrombin Time 34.9 SEC (11.1-13.3)
== END 2023-11-19 11:14 | disposition home or self-care (01) ==
LOC: HO.LNP 11:13
PROVIDERS: Visit Provider Internal Medicine
DX: I48.0 Paroxysmal atrial fibrillation (principal); Z79.01 Long term (current) use of anticoagulants
CPT/HCPCS: 85610

== ENCOUNTER 2023-12-03 11:04 | Outpatient (REF) | payer MEDICARE, SELFPAY ==
[2023-12-03 11:30] LABS: INTERNATIONAL NORM RATIO 1.9 (0.9-1.1); Prothrombin Time 23.3 SEC (11.1-13.3)
== END 2023-12-03 11:05 | disposition home or self-care (01) ==
LOC: HO.LNP 11:04
PROVIDERS: Visit Provider Internal Medicine
DX: I48.0 Paroxysmal atrial fibrillation (principal); Z79.01 Long term (current) use of anticoagulants
CPT/HCPCS: 85610

== ENCOUNTER 2023-12-17 11:12 | Outpatient (REF) | payer MEDICARE, SELFPAY ==
[2023-12-17 11:30] LABS: INTERNATIONAL NORM RATIO 2.4 (0.9-1.1); Prothrombin Time 27.8 SEC (10.9-12.4)
== END 2023-12-17 11:13 | disposition home or self-care (01) ==
LOC: HO.LNP 11:12
PROVIDERS: Visit Provider Internal Medicine
DX: I48.0 Paroxysmal atrial fibrillation (principal); Z79.01 Long term (current) use of anticoagulants
CPT/HCPCS: 85610

== ENCOUNTER 2023-12-31 10:58 | Outpatient (REF) | payer MEDICARE, SELFPAY ==
[2023-12-31 11:52] LABS: INTERNATIONAL NORM RATIO 3.6 (0.9-1.1); Prothrombin Time 42.1 SEC (10.9-12.4)
== END 2023-12-31 10:59 | disposition home or self-care (01) ==
LOC: HO.LNP 10:58
PROVIDERS: Visit Provider Internal Medicine
DX: I48.0 Paroxysmal atrial fibrillation (principal); Z79.01 Long term (current) use of anticoagulants
CPT/HCPCS: 85610

== ENCOUNTER 2024-01-03 07:49 | Outpatient (AMB) | payer MEDICARE, SELFPAY ==
--- NOTE | 2024-01-03 07:53 | MHC.OFFVIS ---
Vital Signs 01/03/24 07:54 Height 6 ft 2 in Weight 257 lb 4.471 oz BMI 33.0 BP 120/62 Blood Pressure Location Lt brachial Position Sitting Pulse 59 Pulse Source Pulse Oximeter Intake Visit Reasons: DM Intake Note: Patient presents today for D2MT follow up visit. Last Diabetic Eye exam: 04/2023 Last Podiatry Visit: Doesn't have one Random Glucose: 190 mg/dl HgA1c: 8.4% Client Program Manager Required: No Information Interpreted: non-clinical only Accompanied by: Self / Same As Patient Allergies lisinopril Adverse Reaction (Verified 01/03/24 07:59) Cough metformin Adverse Reaction (Verified 01/03/24 07:59) Diarrhea Medication List - Last Reconciled 01/03/24 by Beatris Patrick MD acetaminophen ER (Tylenol Arthritis Pain) 650 mg PO Q12H PRN 30 days atenolol 75 mg PO BID blood sugar diagnostic (FreeStyle Lite Strips) 4 times a day; blood-glucose meter (FreeStyle Lite Meter kit) As directed cholecalciferol (vitamin D3) 50 mcg PO DAILY 30 days clotrimazole-betamethasone 1-0.05 % appl topical finasteride 5 mg PO DAILY flash glucose scanning reader (Roll20Style Lindsey 14 Day Hye) As directed flash glucose sensor (FreeStyle Lindsey 14 Day Sensor kit) Once every 14 days flu vacc [id number](65yr up)-PF mL IM furosemide 20 mg PO DAILY insulin glargine (Basaglar KwikPen U-100 Insulin) 22 units (0.22 mL) subcut DAILY insulin lispro (Humalog KwikPen (U-100) Insulin) inject 6 units with breakfast, inject 6 units with lunch, inject 8 units with supper lancets (FreeStyle Lancets) 4x daily losartan-hydrochlorothiazide 100-25 mg 1 tab PO DAILY nirmatrelvir-ritonavir 150-100 mg (Paxlovid) PO PER PKG DIR - Take 1 tablet of each med (150 mg + 100 mg) BID x 5 days paroxetine HCl 20 mg PO QAM pen needle, diabetic (BD Ultra-Fine Micro Pen Needle) once daily with insulin pen needle, diabetic (BD Ultra-Fine Micro Pen Needle) 3 tmes daily pen needle, diabetic (Pen Needle) 4x daily pen needle, diabetic (BD Hui 2nd Gen Pen Needle) 4 times daily pravastatin 20 mg PO BEDTIME 90 days warfarin 7 mg PO DAILY warfarin 0 mg PO HPI Comments Details: 78 YO Male with PMHx T2DM, HTN, HLD and pancreatitis who is seen in F/U for T2DM. Last visit September 2023 No interval emergency room visits or hospitalizarions , did have covid Initially diagnosed with T2DM in 2007. Prior meds Was initially started on treatment with Metformin, but was unable to tolerate this due to GI distress. He trialed Januvia as well as Farxiga, Jardiance and Invokana, but stopped these as they were ineffective. He has a history of gallstone pancreatitis 10 yrs ago , and GLP-1 is contraindicated. Current regimen Basaglar 22 units qHS and Humalog 6 units with BF and lunch , 8 pre dinner Fasting POC today: 190 mg/dL A1c 01/03/2024: POC 8.4% A1c 09/30/2023: 7 . 5% . Currently using the [employer] Lindsey CGM. Downloaded from December 20 to 01/03/2024 . Continuous glucose sensor Interpretation : Glucose readings above target postprandially as well as fasting. No hypoglycemic episodes noted. Average glucose : 197 Standard deviation: 17.6% % readings above target: 67% % readings in hypoglycemic range: 0% % readings in target: 33% Denies a Family History of T2DM. Has eyes checked yearly, last eye exam - last appt 9 mos ago . No retinopathy. Has neuropathy, does not see podiatry. Foot exam completed 09/2023 Has nephropathy, on Losartan 100 mg PO daily. UAC 19.2, 09/2023 Has HLD. On Pravastatin 20 mg PO daily. Last LDL 89 , 10/08. Developed myalgias with Rosuvastatin 10 mg PO daily, stopped this on 07/04/2020. Denies CAD. or stroke Diet: Has completely cut out sugars and is counting carbohydrate. However he does have a lot of red meat and high fatty foods in his diet, breakfast is hinojosa with eggs. Screen for liver fibrosis: Fibrosis 4 index 2.85 points calculated 01/03/2024 Weight: Gained 20 lbs since 1 years from 240 to 257 since 2022 Seen nutrition and CDE. Physical exam General: sitting comfortably in no acute distress HEENT: normocephalic/atraumatic, , moist oral mucosa Neck: supple, symmetrical, no thyromegaly , no dorsocervical or supraclavicular fat pads Cardiac: normal heart sounds Pulm: normal breath sounds B/L, no added breath sounds Abd: not distended, no tenderness Extremities: no edema, no signs of myxedema Neuro: AAO x3, Speech: normal, no facial droop, moving all 4 extremities FORMERLY [facility], 1928–1983 Medical History (Updated 01/03/24 @ 08:35 by Beatris Patrick MD) Obesity (BMI 30.0-34.9) Metabolic dysfunction-associated steatotic liver disease (MASLD) Vitamin D deficiency Pancreatitis Afib Lower extremity edema HLD (hyperlipidemia) HTN (hypertension) Surgical History Hx of sinus surgery Previous back surgery History of cholecystectomy Family History Father No problems noted. Mother No problems noted. Social History Alcohol intake: never Patient Tobacco Use Status: Never used Tobacco Current occupational status: unemployed Physical Exam Vital Signs: Last Vital Signs Pulse 59 01/03/24 07:54 BP 120/62 01/03/24 07:54 BMI result Body Mass Index 33.0 Office Procedures Glucose Monitoring Details Details: see [facility] [id number] - Glucose monitoring, continuous-physician I&R Procedure code (CPT) selection complete Results AMB Hemoglobin A1c AMB Hemoglobin A1c 8.4 % Last Edit by DAVIN Almaraz on 01/03/24 08:33 Results Reviewed Results Reviewed: Laboratory Last Values Hgb A1c (Clinic) 8.4 % (4.0-6.0) H 01/03/24 08:03 Laboratory Tests 09/30/23 07:15 Creatinine 0.91 Estimated GFR > 60 Hemoglobin A1c % 7.2 H Triglycerides 198 H Cholesterol 170 LDL Cholesterol, Calc 89 HDL Cholesterol 42 Microalb/Creat Ratio 19.2 Assessment & Plan Assessment & Plan (1) Poorly controlled type 2 diabetes mellitus with peripheral neuropathy: Code(s): E11.42 - Type 2 diabetes mellitus with diabetic polyneuropathy; E11.65 - Type 2 diabetes mellitus with hyperglycemia Category: Medical Plan: Patient with a history of type 2 diabetes mellitus diagnosed 2007, who is now insulin dependent with complications of peripheral neuropathy. A1c today has worsened to 8.4% from 7.5% in September 2023. Patient endorses adherence to his insulin and he is taking his postprandial insulin 15 minutes before breakfast. He does not think his diet has significantly worsened however he did get COVID in the past months and may be due to infection he has had worsened control. His CGM also shows that he is only in target range 33% of the time and above target 67% of the time with no hypoglycemia. He is running high both fasting and postprandially. At this point I will go up on his long-acting as well as short-acting insulin. Plan: -increase Basaglar to 24 units from 22 units and if fasting remains greater than 140 mg/dL for the next week, increase further to 26 units daily. -increase Humalog to 8 from 6 units prior to breakfast and lunch and 10 from 8 units prior to dinner -?Diet control and healthy lifestyle was discussed in detail. Emphasis was made on exercise and physical activity in daily routine with at least 30-45 minutes of aerobic exercise 5-6 days a week. E: Last visit with boat driver was on []April 2023. No diabetic retinopathy. F: Foot care: Does not follow up with product design specialist but checks foot daily G: eGFR greater than 60 and microalbumin/Cr ratio 19.2 from September 2023, continue losartan 100 mg daily -repeat 3 months with repeat A1c (2) Metabolic dysfunction-associated steatotic liver disease (MASLD): Code(s): K76.0 - Fatty (change of) liver, not elsewhere classified Category: Medical Plan: Fibrosis for index score 2.85 calculated 01/03/2024. Concerning for advanced fibrosis. -he is not a candidate for GLP 1 agonist due to past history of pancreatitis Plan: -advised 30 minutes of walking daily -counseled on dietary modification with the elimination of hi fatty foods and incorporating more whole grains in diet -referral to GI placed (3) HLD (hyperlipidemia): Code(s): E78.5 - Hyperlipidemia, unspecified Category: Medical Qualifiers: Hyperlipidemia type: unspecified Qualified Code(s): E78.5 - Hyperlipidemia, unspecified Plan: LDL at 89 mg/dL. He is on pravastatin 20 mg daily. He did not react well to rosuvastatin. We will change to a more potent statin such as atorvastatin he has not tried that before. Plan: -LDL goal less than 70 mg/dL -stop pravastatin, switch to atorvastatin 40 mg daily -repeat lipid panel in 3 months (4) HTN (hypertension): Code(s): I10 - Essential (primary) hypertension Category: Medical Qualifiers: Hypertension type: unspecified Qualified Code(s): I10 - Essential (primary) hypertension Plan: Blood pressure within goal. Continue losartan 100 mg daily (5) Obesity (BMI 30.0-34.9): Code(s): E66.811 - Obesity, class 1 Category: Medical Plan: BMI 33 kg per m2. He has gained 20 lb since 2022. Used to be 240 lb and currently 257 lb. Lifestyle modification advised with incorporating more whole grains, avoiding red meat, avoiding fatty foods Advised about incorporating 30 minutes of walking daily or 4-5000 steps at least Plan I spent 30 minutes in reviewing the record, seeing the patient and documenting in the medical record. Orders: Orders AMB Hemoglobin A1c Today E11.42 - Type 2 diabetes mellitus with diabetic polyneuropathy, E11.65 - Type 2 diabetes mellitus with hyperglycemia, Z13.9 - Encounter for screening, unspecified AMB Glucose Monitoring Today E11.42 - Type 2 diabetes mellitus with diabetic polyneuropathy, E11.65 - Type 2 diabetes mellitus with hyperglycemia Lipid Panel 3 Months E11.42 - Type 2 diabetes mellitus with diabetic polyneuropathy, E11.65 - Type 2 diabetes mellitus with hyperglycemia Hemoglobin A1c 3 Months E11.42 - Type 2 diabetes mellitus with diabetic polyneuropathy, E11.65 - Type 2 diabetes mellitus with hyperglycemia Referrals Gastroenterology Referral K76.0 - Fatty (change of) liver, not elsewhere classified Medications: New atorvastatin 40 mg PO BEDTIME 90 tabs 3RF Changed From insulin glargine (Basaglar KwikPen U-100 Insulin) 22 units (0.22 mL) subcut DAILY 30 mL 4RF E11.65 - Type 2 diabetes mellitus with hyperglycemia To insulin glargine (Basaglar KwikPen U-100 Insulin) 24 units (0.24 mL) subcut DAILY 30 mL 4RF E11.65 - Type 2 diabetes mellitus with hyperglycemia From insulin lispro (Humalog KwikPen (U-100) Insulin) inject 6 units with breakfast, inject 6 units with lunch, inject 8 units with supper 15 mL 5RF E11.65 - Type 2 diabetes mellitus with hyperglycemia To insulin lispro (Humalog KwikPen (U-100) Insulin) inject 8 units with breakfast, inject 8 units with lunch, inject 10 units with supper 15 mL 5RF E11.65 - Type 2 diabetes mellitus with hyperglycemia Discontinued pravastatin Discontinued Reason: No Longer Medically Relevant 20 mg PO BEDTIME 90 days 90 tabs 11RF E78.5 - Hyperlipidemia, unspecified Patient Instructions: Stop pravastatin Start atorvastatin 40 mg daily at bedtime Repeats labs in 3 months Increase basagalar to 24 units at bedtime, if after a week fasting blood sugars are still >140 mg.dl, increase basagalar to 26 units Increase humalog to 8 units with breakfast and lunch and 10 units with dinner Try getting in 4000 to 5000 steps a day or as much as possible with your hip Walking 30 mins daily is good for health Some better breakfast options are Cornell bread Oatmeal with a dash of cinnamon Rule of 15 Treatment for Hypoglycemia (Low blood sugar) If your blood glucose is low (70 and below)*, follow the steps below to treat: Eat or drink something from the list below equal to 15 grams of carbohydrate (carb). Rest for 15 minutes Re-check your blood glucose. If it is still low, (below 70), repeat step 1 above. ? If your next meal is more than an hour away, you will need to eat one carbohydrate choice as a snack to keep your blood glucose from going low again. ?If you can't figure out why you have low blood glucose, call your healthcare provider, as your medicine may need to be adjusted. ?Always carry something with you to treat an insulin reaction. Use food from the list below. ? Foods equal to One Carbohydrate Choice (15 grams of carbohydrate): 3 Glucose ?tablets or 4 Dextrose tablets 4 ounces of fruit juice 5-6 ounces (about 1/2 can) of regular soda such as Coke or Pepsi ? 7-8 gummy or regular Life Savers ? 1 Tbsp. of sugar or jelly NOTE: If your blood sugar is less than 50, double the portion above for a total of 30 gm. ?Carbohydrate. ? Follow meal plan of 45-60 g of consistent carbohydrates at 3 meals each day and 15 g of carbohydrate at 1-2 snacks each day. Coding Level of Care Code Est Pt Level 4 (76524) Complex EM visit Add On G2211 Diagnoses Poorly controlled type 2 diabetes mellitus with peripheral neuropathy E11.42; E11.65 Metabolic dysfunction-associated steatotic liver disease (MASLD) K76.0 Hyperlipidemia, unspecified hyperlipidemia type E78.5 Hyperlipidemia type: unspecified Hypertension, unspecified type I10 Hypertension type: unspecified Obesity (BMI 30.0-34.9) E66.811 CPT Codes Details - CPT: 57105 - Glucose monitoring, continuous-physician I&R ([id number]) Time Spent (min) 30
[2024-01-03 07:54] VITALS: BP 120/62; PULSE 59; BMI 33.0
== END 2024-01-03 08:29 | disposition home or self-care (01) ==
PROVIDERS: PCP Internal Medicine; Visit Provider Student in an Organized Health Care Education/Training Program
DX: E11.42 Type 2 diabetes mellitus with diabetic polyneuropathy (principal); E11.65 Type 2 diabetes mellitus with hyperglycemia; K76.0 Fatty (change of) liver, not elsewhere classified; E78.5 Hyperlipidemia, unspecified; I10 Essential (primary) hypertension; E66.811 Obesity, class 1; Z13.9 Encounter for screening, unspecified
CPT/HCPCS: 95251; 99214; G2211

== ENCOUNTER → 2024-01-03 07:49 | Outpatient (BNVA) | payer MEDICARE, SELFPAY | PROVIDERS: PCP Internal Medicine; Visit Provider Student in an Organized Health Care Education/Training Program | DX: E11.42 Type 2 diabetes mellitus with diabetic polyneuropathy (principal); E11.65 Type 2 diabetes mellitus with hyperglycemia; E78.5 Hyperlipidemia, unspecified; E66.811 Obesity, class 1; K76.0 Fatty (change of) liver, not elsewhere classified; I10 Essential (primary) hypertension | CPT/HCPCS: 82947; 83036; 99212 ==

== ENCOUNTER 2024-01-07 12:27 | Outpatient (REF) | payer MEDICARE, SELFPAY ==
[2024-01-07 12:48] LABS: INTERNATIONAL NORM RATIO 2.7 (0.9-1.1)
== END 2024-01-07 12:28 | disposition home or self-care (01) ==
LOC: HO.LNP 12:27
PROVIDERS: Visit Provider Internal Medicine
DX: I48.0 Paroxysmal atrial fibrillation (principal); Z79.01 Long term (current) use of anticoagulants
CPT/HCPCS: 85610

== ENCOUNTER 2024-01-21 11:44 | Outpatient (REF) | payer MEDICARE, SELFPAY ==
[2024-01-21 12:25] LABS: INTERNATIONAL NORM RATIO 2.7 (0.9-1.1); Prothrombin Time 31.9 SEC (10.9-12.4)
== END 2024-01-21 11:45 | disposition home or self-care (01) ==
LOC: HO.LNP 11:44
PROVIDERS: Visit Provider Internal Medicine
DX: I48.0 Paroxysmal atrial fibrillation (principal); Z79.01 Long term (current) use of anticoagulants
CPT/HCPCS: 85610

== ENCOUNTER 2024-02-04 09:55 | Outpatient (REF) | payer MEDICARE, SELFPAY ==
[2024-02-04 10:20] LABS: INTERNATIONAL NORM RATIO 1.8 (0.9-1.1); Prothrombin Time 20.5 SEC (10.9-12.4)
== END 2024-02-04 09:56 | disposition home or self-care (01) ==
LOC: HO.LNP 09:55
PROVIDERS: Visit Provider Internal Medicine
DX: I48.0 Paroxysmal atrial fibrillation (principal); Z79.01 Long term (current) use of anticoagulants
CPT/HCPCS: 85610

== ENCOUNTER 2024-02-25 11:26 | Outpatient (REF) | payer MEDICARE, SELFPAY ==
[2024-02-25 11:44] LABS: INTERNATIONAL NORM RATIO 2.2 (0.9-1.1)
--- OUTSIDE RECORDS SUMMARY | 2024-02-26 20:42 | XMS_ITS ---
Author Organization Brody Goldberg MD Address [address] [place] [phone] Care Team Providers Care Paralegal Internship Name Role Phone Brody Goldberg Primary Care Provider [phone] RESULTS Component Value Reference Range Notes Prothrombin Time INR Reviewed date:02/25/2024 12:31:15 PM Interpretation: Performing Lab:[facility], [address] [place] [id number] Notes/Report: Prothrombin Time 26.0 10.9-12.4 SEC INTERNATIONAL NORM RATIO 2.2 0.9-1.1 INTERNATIONAL NORMALIZED RATIO (INR) REFERENCE RANGES Reference Range For patients not on anticoagulant therapy: 0.9 - 1.1 INR ranges for oral anticoagulant therapy: For prevention and treatment of venous thrombosis and pulmonary embolism: 2.0 - 3.0 For acute myocardial infarction with aspirin therapy: 2.0 - 3.0 For acute myocardial infarction without aspirin therapy: 3.0 - 4.0 For patients with mechanical prosthetic heart valves: 2.5 - 3.5 REASON FOR VISIT INR Encounters Encounter Location Date Provider Diagnosis Brody Goldberg MD [address] [place] [phone] 02/25/2024 Brody Goldberg Paroxysmal atrial fibrillation I48.0 and long term care administrator current use of anticoagulant Z79.01 ASSESSMENTS Encounter Date Diagnosis Assessment Notes Treatment Notes Treatment Clinical Notes 02/25/2024 Paroxysmal atrial fibrillation (ICD-10 - I48.0) 02/25/2024 long term care administrator current us e of anticoagulant (ICD-10 - Z79.01) PLAN OF TREATMENT Next Appt Details Provider Name:Brody velarde, 03/12/2024 08:15:00 AM, [address] [place] [address], [address], D[place]A Rodriguez, [phone], Provider Name:Brody velarde, 04/02/2024 07:30:00 AM, [address] [place] [address], [address], [place] Rodriguez, [phone], Provider Name:Brody velarde, 04/09/2024 09:00:00 AM, [address] [place] [address], [address], [place] Rodriguez, [id number], Provider Name:Brody velarde, 10/01/2024 08:00:00 AM, [address] [place] [address], [address], [place] Rodriguez, [phone], Provider Name:Brody velarde, 10/08/2024 11:00:00 AM, [address] [place] [address], [address], D[place]A Rodriguez, [phone],
--- OUTSIDE RECORDS SUMMARY | 2024-02-26 20:42 | XMS_ITS ---
Author Organization Brody Goldberg MD Address [address] [facility] [address] [place] [phone] Care Team Providers Care Web Operations Specialist Name Role Phone Brody Goldberg Primary Care Provider REASON FOR VISIT PT-INR Encounters Encounter Location Date Provider Diagnosis Brody Goldberg MD [address] [place] [address] [place] [phone] 02/25/2024 Brody Goldberg PLAN OF TREATMENT Next Appt Details Provider Name:Brody velarde, 03/12/2024 08:15:00 AM, [address] [place] [address], [address], [phone], Provider Name:Brody Parikh ier, 04/02/2024 07:30:00 AM, [address] [place] [address], [address], [phone], Provider Name:Brody velarde, 04/09/2024 09:00:00 AM, [address] [place] [address], [phone], Provider Name:Brody velarde, 10/01/2024 08:00:00 AM, [address] [place] [address], [phone], Provider Name:Brody velarde, 10/08/2024 11:00:00 AM, [address] [place] [address] Drive, [address], [place], [phone],
--- OUTSIDE RECORDS SUMMARY | 2024-02-26 20:43 | XMS_ITS | Patient Health Record ---
Author Organization Brody Goldberg MD Address [address] [place], [place] [id number] Care Team Providers [facility] Worker Name Role Phone Brody Goldberg Primary Care Provider ALLERGIES Allergen (clinical drug ingredient) Drug/Non Drug Allergy documented on EMR Reaction Allergy Type Onset Date Status metformin Metformin HCl diarrhea Drug Allergy Act enzo lisinopril Lisinopril couigh Drug Allergy Activ e RESULTS Component Value Reference Range Notes Prothrombin Time INR Reviewed date:03/01/2023 12:14:37 PM Interpretation: Performing Lab:[address] [phone] Notes/Report: Prothrombin Time 19.4 11.1-13.3 SEC INTERNATIONAL NORM RATIO 1.6 0.9-1.1 INTERNATIONAL NORMALIZED RATIO (INR) REFERENCE RANGES [...] mechanical prosthetic heart valves: 2.5 - 3.5 Prothrombin Time INR Reviewed date:03/08/2023 11:55:11 AM Interpretation: Performing Lab:[address] [phone] Notes/Report: Prothrombin Time 23.4 11.1-13.3 SEC INTERNATIONAL NORM RATIO 1.9 0.9-1.1 INTERNATIONAL NORMALIZED RATIO (INR) REFERENCE RANGES [...] mechanical prosthetic heart valves: 2.5 - 3.5 Prothrombin Time INR Reviewed date:03/15/2023 11:36:14 AM Interpretation: Performing Lab:[facility], [address] [place] [phone] Notes/Report: Prothrombin Time 29.2 11.1-13.3 SEC INTERNATIONAL NORM RATIO 2.4 0.9-1.1 INTERNATIONAL NORMALIZED RATIO (INR) REFERENCE RANGES [...] mechanical prosthetic heart valves: 2.5 - 3.5 Nayely Quinn Reviewed date:03/28/2023 12:11:08 PM Interpretation: Performing Lab:[facility], [address] [place] [phone] Notes/Report: Nayely Quinn See Note Specimen held untested for 24 hours; Call to request Chemistry testing. Prothrombin Time INR Reviewed date:03/29/2023 06:17:44 AM Interpretation: Performing Lab:[facility], [address] [place] [phone] Notes/Report: Prothrombin Time 23.7 11.1-13.3 SEC INTERNATIONAL NORM RATIO 1.9 0.9-1.1 INTERNATIONAL NORMALIZED RATIO (INR) REFERENCE RANGES [...] mechanical prosthetic heart valves: 2.5 - 3.5 Liver Panel Reviewed date:03/28/2023 05:24:13 PM Interpretation: Performing Lab:[facility], [address] [place] [phone] Notes/Report: Bilirubin Total 0.4 0.0-1.0 mg/dL Bilirubin Direct 0.2 0.0-0.5 mg/dL Aspartate Amino Transferase 18 5-37 U/L Alanine Aminotransferase 16 0-40 U/L Total Protein 8.0 6.5-8.0 g/dL Albumin Level 4.5 3.5-5.0 g/dL Alkaline Phosphatase 61 39-117 U/L Glucose Fasting Reviewed date:03/28/2023 05:16:58 PM Interpretation: Performing Lab:[facility], [address] [place] [phone] Notes/Report: Glucose Fasting 149 60-99 mg/dL A fasting glucose of 126 mg/dl or greater on more than one occasion is considered diagnostic of diabetes. Lipid Panel with Reflex Reviewed date:03/28/2023 05:14:36 PM Interpretation: Performing Lab:[facility], [address] [place] [phone] Notes/Report: Triglycerides 247 <150 mg/dL Desirable Triglyceride: less than 150 mg/dL Borderline High Triglyceride 150-199 mg/dL High Triglyceride: 200-499 mg/dL Very High Triglyceride: greater than or equal to 5OO mg/dL Cholesterol 201 <200 mg/dL Desirable Cholesterol: less than 200 mg/dL Borderline High Cholesterol: 200-239 mg/dL High Cholesterol: greater than 239 mg/dL LDL Cholesterol Calculated 111 <100 mg/dL Desirable LDL: less than 100 mg/dL Near Optimal/Above Optimal LDL: 110-129 mg/dL Borderline High LDL: 130-159 mg/dL High LDL: 160-189 mg/dL Very High LDL: greater than or equal to 190 mg/dL HDL Cholesterol 41 >40 mg/dL Desirable HDL: greater than 40 mg/dL Note: This HDL assay may give artificially low results in patients with liver disease. Hemoglobin A1c Reviewed date:03/28/2023 12:14:44 PM Interpretation: Performing Lab:[facility], [address] [place] [phone] Notes/Report: Hemoglobin A1c % 7.1 <6.0 % Hemoglobin A1C Reference Range Adults: 4.8 - 6.0 % Non diabetic: < 6.0 % Goal: < 7.0 % Additional Action Suggested: > 8.0 % Note: Hemoglobin A1c results are invalid for patients with abnormal amounts of HbF. Blood transfusions may impact the HbA1c concentration in the patient sample. Estimated Average Glucose 157 eAG = Estimated average glucose which is %A1C expressed as average glucose, using the formula of the [id number] Average Glucose study (ADAG), Diabetes Care, Vol.31,#8, 2007 Prothrombin Time INR Reviewed date:04/04/2023 11:49:49 AM Interpretation: Performing Lab:[facility], [address] [place] [phone] Notes/Report: Prothrombin Time 28.3 11.1-13.3 SEC INTERNATIONAL NORM RATIO 2.3 0.9-1.1 INTERNATIONAL NORMALIZED RATIO (INR) REFERENCE RANGES [...] mechanical prosthetic heart valves: 2.5 - 3.5 Prothrombin Time INR Reviewed date:07/02/2023 11:45:41 AM Interpretation: Performing Lab:[facility], [address] [place] [phone] Notes/Report: Prothrombin Time 28.7 11.1-13.3 SEC INTERNATIONAL NORM RATIO 2.4 0.9-1.1 INTERNATIONAL NORMALIZED RATIO (INR) REFERENCE RANGES [...] mechanical prosthetic heart valves: 2.5 - 3.5 Prothrombin Time INR Reviewed date:07/16/2023 12:18:39 PM Interpretation: Performing Lab:[facility], [address] [place] [phone] Notes/Report: Prothrombin Time 27.7 11.1-13.3 SEC INTERNATIONAL NORM RATIO 2.3 0.9-1.1 INTERNATIONAL NORMALIZED RATIO (INR) REFERENCE RANGES [...] mechanical prosthetic heart valves: 2.5 - 3.5 Glucose, Whole Blood Reviewed date:07/23/2023 08:27:13 AM Interpretation: Performing Lab:[facility], [address] [place] [phone] Notes/Report: Glucose, Whole Blood 184 60-115 mg/dL METER #: [id number] Testing [facility] [facility] Prothrombin Time INR Reviewed date:07/30/2023 12:41:13 PM Interpretation: Performing Lab:[facility], [address] [place] [phone] Notes/Report: Prothrombin Time 27.0 11.1-13.3 SEC INTERNATIONAL NORM RATIO 2.2 0.9-1.1 INTERNATIONAL [...] mechanical prosthetic heart valves: 2.5 - 3.5 Prothrombin Time INR Reviewed date:08/13/2023 11:38:41 AM Interpretation: Performing Lab:[facility], [address] [place] [phone] Notes/Report: Prothrombin Time 28.5 11.1-13.3 SEC INTERNATIONAL NORM RATIO 2.3 0.9-1.1 INTERNATIONAL NORMALIZED RATIO (INR) REFERENCE RANGES [...] mechanical prosthetic heart valves: 2.5 - 3.5 Prothrombin Time INR Reviewed date:08/27/2023 11:27:23 AM Interpretation: Performing Lab:[facility], [address] [place] [phone] Notes/Report: Prothrombin Time 32.3 11.1-13.3 SEC INTERNATIONAL NORM RATIO 2.7 0.9-1.1 INTERNATIONAL NORMALIZED RATIO (INR) REFERENCE RANGES [...] mechanical prosthetic heart valves: 2.5 - 3.5 Prothrombin Time INR Reviewed date:09/10/2023 12:34:36 PM Interpretation: Performing Lab:[facility], [address] [place] [phone] Notes/Report: Prothrombin Time 34.1 11.1-13.3 SEC INTERNATIONAL NORM RATIO 2.8 0.9-1.1 INTERNATIONAL NORMALIZED RATIO (INR) REFERENCE RANGES [...] mechanical prosthetic heart valves: 2.5 - 3.5 Prothrombin Time INR Reviewed date:09/24/2023 12:56:05 PM Interpretation: Performing Lab:[facility], [address] [place] [phone] Notes/Report: Prothrombin Time 30.7 11.1-13.3 SEC INTERNATIONAL NORM RATIO 2.5 0.9-1.1 INTERNATIONAL NORMALIZED RATIO (INR) REFERENCE RANGES [...] mechanical prosthetic heart valves: 2.5 - 3.5 Complete Blood Count Auto Di ff Reviewed date:09/30/2023 12:39:19 PM Interpretation: Performing Lab:[facility], [address] [place] [phone] Notes/Report: White Blood Count 8.1 4.8-10.8 X10*3/uL Red Blood Count 4.81 4.60-5.80 X10*6/uL Hemoglobin 15.7 14.0-18.0 g/dl Hematocrit 47.7 42.0-52.0 % Mean Corpuscular Volume 99.2 80.0-98.0 fL Mean Corpuscular Hemoglobin 32.6 27.0-33.0 pg Mean Corpuscular HGB Conc 32.9 31.0-36.0 g/dl Red Cell Distribution Width 13.4 11.0-16.0 % Platelet Count 117 160-400 X10*3/uL Confirmed by smear. Confirmed by smear. Mean Platelet Volume 11.1 9.4-12.4 fL Neutrophils Percent Auto 63.0 45-73 % Imm Gran Pct Auto 0.5 0.0-0.4 % Lymphocytes Percent Auto 26.6 20-40 % Monocytes Percent Auto 7.4 2-11 % Eosinophils Percent Auto 2.0 0-4 % Basophils Percent Auto 0.5 0-2 % NRBC Pct Auto 0.0 0.0-0.2 /100WBC Neutrophils Absolute Auto 5.1 2.0-8.3 x10*3/u L Imm Gran Abs Auto 0.04 0.00-0.03 X10*3/uL Lymphocytes Absolute Auto 2.2 1.2-4.9 X10*3/u L Monocytes Absolute Auto 0.6 0.1-1.2 X10*3/uL Eosinophils Absolute Auto 0.2 0.0-0.4 X10*3/u L Basophils Absolute Auto 0.0 0.0-0.2 X10*3/uL NRBC Abs Auto 0.000 0.0-0.012 X10*3/uL White Blood Count 8.1 4.8-10.8 X10*3/uL Red Blood Count 4.81 4.60-5.80 X10*6/uL Hemoglobin 15.7 14.0-18.0 g/dl Hematocrit 47.7 42.0-52.0 % Mean Corpuscular Volume 99.2 80.0-98.0 fL Mean Corpuscular Hemoglobin 32.6 27.0-33.0 pg Mean Corpuscular HGB Conc 32.9 31.0-36.0 g/dl Red Cell Distribution Width 13.4 11.0-16.0 % Platelet Count 117 160-400 X10*3/uL Confirmed by smear. Confirmed by smear. Mean Platelet Volume 11.1 9.4-12.4 fL Neutrophils Percent Auto 63.0 45-73 % Imm Gran Pct Auto 0.5 0.0-0.4 % Lymphocytes Percent Auto 26.6 20-40 % Monocytes Percent Auto 7.4 2-11 % Eosinophils Percent Auto 2.0 0-4 % Basophils Percent Auto 0.5 0-2 % NRBC Pct Auto 0.0 0.0-0.2 /100WBC Neutrophils Absolute Auto 5.1 2.0-8.3 x10*3/u L Imm Gran Abs Auto 0.04 0.00-0.03 X10*3/uL Lymphocytes Absolute Auto 2.2 1.2-4.9 X10*3/u L Monocytes Absolute Auto 0.6 0.1-1.2 X10*3/uL Eosinophils Absolute Auto 0.2 0.0-0.4 X10*3/u L Basophils Absolute Auto 0.0 0.0-0.2 X10*3/uL NRBC Abs Auto 0.000 0.0-0.012 X10*3/uL Urinalysis and Microscopic Reviewed date:09/30/2023 05:57:39 PM Interpretation: Performing Lab:[facility], [address] [place] [phone] Notes/Report: Color Urine Yellow Appearance Urine Clear PH 6.0 5.0-9.0 Glucose Urine UA Negative Negative mg/dL Urine Blood Negative Negative Specific Peck - Urine 1.020 1.005-1.025 Urine Protein Negative Neg-Trace mg/dL Urine Ketones Negative Negative mg/dL Nitrite Urine Negative Negative Leukocyte Esterase Urine Negative Negative RBC Urine 0-2 0-2 /HPF WBC Urine 0-5 0-5 /HPF Squamous Epithelial Cell Urine 0-2 0-2 /HPF Bacteria Urine None Seen None Seen Hyaline Casts Urine 0-2 0-2 /LPF Comprehensive [place]. Panel Fa st Reviewed date:09/30/2023 06:19:38 PM Interpretation: Performing Lab:[facility], [address] [place] [phone] Notes/Report: Sodium 143 135-145 mmol/L Potassium 4.3 3.3-5.1 mmol/L Chloride 105 96-108 mmol/L Carbon Dioxide 30 22-29 mmol/L Anion Gap 12 12-20 Blood Urea Nitrogen 25 9-16 mg/dL Creatinine 0.91 0.5-1.4 mg/dL Estimated Glomerular Filt Rate > 60 NOTE: For -[place] individuals, multiply the result by 1.210. Chronic Kidney Disease: Estimated GFR < 60 mL/min/1.73m2 Severe Kidney Disease: Estimated GFR < 15 mL/min/1.73m2 Glucose Fasting 157 60-99 mg/dL A fasting glucose of 126 mg/dl or greater on more than one occasion is considered diagnostic of diabetes. Calcium 8.9 8.4-10.2 mg/dL Bilirubin Total 0.3 0.0-1.0 mg/dL Aspartate Amino Transferase 17 5-37 U/L Alanine Aminotransferase 15 0-40 U/L Total Protein 7.2 6.5-8.0 g/dL Albumin Level 4.1 3.5-5.0 g/dL Alkaline Phosphatase 58 39-117 U/L Lipid Panel Reviewed date:09/30/2023 12:39:39 PM Interpretation: Performing Lab:[facility], [address] [place] [phone] Notes/Report: Triglycerides 198 <150 mg/dL Desirable Triglyceride: less than 150 mg/dL Borderline High Triglyceride 150-199 mg/dL High Triglyceride: 200-499 mg/dL Very High Triglyceride: greater than or equal to 5OO mg/dL Cholesterol 170 <200 mg/dL Desirable Cholesterol: less than 200 mg/dL Borderline High Cholesterol: 200-239 mg/dL High Cholesterol: greater than 239 mg/dL LDL Cholesterol Calculated 89 <100 mg/dL Desirable LDL: less than 100 mg/dL Near Optimal/Above Optimal LDL: 110-129 mg/dL Borderline High LDL: 130-159 mg/dL High LDL: 160-189 mg/dL Very High LDL: greater than or equal to 190 mg/dL HDL Cholesterol 42 >40 mg/dL Desirable HDL: greater than 40 mg/dL Note: This HDL assay may give artificially low results in patients with liver disease. PSA,Total (Free>4and<10) Reviewed date:09/30/2023 12:37:03 PM Interpretation: Performing Lab:[address] [phone] Notes/Report: PSA,Total (Free>4and<10) 1.16 0.00-4.00 ng/mL A Free PSA was not performed: The percentage of Free PSA can be used to enhance the differentiation of prostate cancer from benign prostatic disease in subjects whose PSA levels are between 4.0 and 10.0 ng/mL. For subjects whose PSA levels are below 4.0 or above 10.0 ng/mL, the risk of prostate cancer is determined on the basis of the PSA alone. Therefore the % Free PSA is recommended only for those subjects whose PSA levels are between 4.0 and 10.0 ng/mL. PSA methodology: Roblero Alinity i Chemiluminescent Microparticle Immunoassay (CMIA) Microalbumin, Random Reviewed date:09/30/2023 12:37:57 PM Interpretation: Performing Lab:[facility], [address] [place] [phone] Notes/Report: Creatinine Urine 135.02 Microalbumin Urine 26.0 Microalbum/Creatinine Ratio Ur 19.2 <30 ug/mg cr Albumin/Creatinine Ratio Reference Ranges: Normal: < 30 ug/mg creatinine Microalbuminuria: 30 - 300 ug/mg creatinine Clinical Albuminuria: > 300 ug/mg creatinine Hemoglobin A1c Reviewed date:09/30/2023 02:07:09 PM Interpretation: Performing Lab:[facility], [address] [place] [phone] Notes/Report: Hemoglobin A1c % 7.2 <6.0 % Hemoglobin A1C Reference Range Adults: 4.8 - 6.0 % Non diabetic: < 6.0 % Goal: < 7.0 % Additional Action Suggested: > 8.0 % Note: Hemoglobin A1c results are invalid for patients with abnormal amounts of HbF. Blood transfusions may impact the HbA1c concentration in the patient sample. Estimated Average Glucose 160 eAG = Estimated average glucose which is %A1C expressed as average glucose, using the formula of the [id number]-Jfsybfs Average Glucose study (ADAG), Diabetes Care, Vol.31,#8, 2007 Glucose, Whole Blood Reviewed date:09/30/2023 06:15:31 PM Interpretation: Performing Lab:[facility], [address] [place] [phone] Notes/Report: Glucose, Whole Blood 144 60-115 mg/dL METER #: [id number] Testing performed in the [facility], [facility]. SLIDE REVIEW Reviewed date:09/30/2023 02:09:35 PM Interpretation: Performing Lab:[facility], [address] [place] [phone] Notes/Report: SLIDE REVIEW VERIFIED Occult Blood, Stool, Guaiac Reviewed date:10/07/2023 11:34:21 AM Interpretation:Negative Performing Lab: Notes/Report: Negative Occult Blood, Stool, Guaiac Neg Prothrombin Time INR Reviewed date:10/07/2023 12:33:09 PM Interpretation: Performing Lab:[facility], [address] [place] [phone] Notes/Report: Prothrombin Time 37.8 11.1-13.3 SEC INTERNATIONAL NORM RATIO 3.1 0.9-1.1 INTERNATIONAL NORMALIZED RATIO (INR) REFERENCE RANGES [...] mechanical prosthetic heart valves: 2.5 - 3.5 Prothrombin Time INR Reviewed date:10/22/2023 12:23:47 PM Interpretation: Performing Lab:[facility], [address] [place] [phone] Notes/Report: Prothrombin Time 37.2 11.1-13.3 SEC INTERNATIONAL NORM RATIO 3.1 0.9-1.1 INTERNATIONAL NORMALIZED RATIO (INR) REFERENCE RANGES [...] mechanical prosthetic heart valves: 2.5 - 3.5 Prothrombin Time INR Reviewed date:11/07/2023 12:43:56 PM Interpretation: Performing Lab:[facility], [address] [place] [phone] Notes/Report: Prothrombin Time 37.5 11.1-13.3 SEC INTERNATIONAL NORM RATIO 3.1 0.9-1.1 INTERNATIONAL NORMALIZED RATIO (INR) REFERENCE RANGES [...] mechanical prosthetic heart valves: 2.5 - 3.5 Prothrombin Time INR Reviewed date:11/19/2023 12:00:58 PM Interpretation: Performing Lab:[facility], [address] [place] [phone] Notes/Report: Prothrombin Time 34.9 11.1-13.3 SEC INTERNATIONAL NORM RATIO 2.9 0.9-1.1 INTERNATIONAL NORMALIZED RATIO (INR) REFERENCE RANGES [...] mechanical prosthetic heart valves: 2.5 - 3.5 Prothrombin Time INR Reviewed date:12/03/2023 12:04:42 PM Interpretation: Performing Lab:[facility], [address] [place] [phone] Notes/Report: Prothrombin Time 23.3 11.1-13.3 SEC INTERNATIONAL NORM RATIO 1.9 0.9-1.1 INTERNATIONAL NORMALIZED RATIO (INR) REFERENCE RANGES [...] mechanical prosthetic heart valves: 2.5 - 3.5 Prothrombin Time INR Reviewed date:12/17/2023 12:24:57 PM Interpretation: Performing Lab:[facility], [address] [place] [phone] Notes/Report: Prothrombin Time 27.8 10.9-12.4 SEC INTERNATIONAL NORM RATIO 2.4 0.9-1.1 INTERNATIONAL NORMALIZED RATIO (INR) REFERENCE RANGES [...] mechanical prosthetic heart valves: 2.5 - 3.5 Prothrombin Time INR Reviewed date:01/02/2024 08:22:51 AM Interpretation: Performing Lab:[facility], [address] [place] [phone] Notes/Report: Prothrombin Time 42.1 10.9-12.4 SEC INTERNATIONAL NORM RATIO 3.6 0.9-1.1 INTERNATIONAL NORMALIZED RATIO (INR) REFERENCE RANGES [...] mechanical prosthetic heart valves: 2.5 - 3.5 Glucose, Whole Blood Reviewed date:01/05/2024 05:02:16 PM Interpretation: Performing Lab:[facility], [address] [place] [phone] Notes/Report: Glucose, Whole Blood 190 60-115 mg/dL METER #: [id number] Testing performed in the [facility] Grace Gonzalez [facility]. Prothrombin Time INR Reviewed date:01/07/2024 01:11:11 PM Interpretation: Performing Lab:[address] [phone] Notes/Report: Prothrombin Time 31.0 10.9-12.4 SEC INTERNATIONAL NORM RATIO 2.7 0.9-1.1 INTERNATIONAL NORMALIZED RATIO (INR) REFERENCE RANGES [...] mechanical prosthetic heart valves: 2.5 - 3.5 Prothrombin Time INR Reviewed date:01/21/2024 12:49:48 PM Interpretation: Performing Lab:[facility], [address] [place] [phone] Notes/Report: Prothrombin Time 31.9 10.9-12.4 SEC INTERNATIONAL NORM RATIO 2.7 0.9-1.1 INTERNATIONAL NORMALIZED RATIO (INR) REFERENCE RANGES [...] mechanical prosthetic heart valves: 2.5 - 3.5 Prothrombin Time INR Reviewed date:02/17/2024 08:32:12 AM Interpretation: Performing Lab:[address] [phone] Notes/Report: Prothrombin Time 20.5 10.9-12.4 SEC INTERNATIONAL NORM RATIO 1.8 0.9-1.1 INTERNATIONAL NORMALIZED RATIO (INR) REFERENCE RANGES [...] mechanical prosthetic heart valves: 2.5 - 3.5 Prothrombin Time INR Reviewed date:02/25/2024 12:31:15 PM Interpretation: Performing Lab:[facility], [address] [place] [phone] Notes/Report: Prothrombin Time 26.0 10.9-12.4 SEC INTERNATIONAL [...] heart valves: 2.5 - 3.5 REASON FOR REFERRAL No Information MEDICATIONS Medication SIG (Take, Route, Frequency, Duration) Notes Start Date End Date Status PARoxetine HCl 20 MG TAKE 1 TABLET BY [facility] EVERY MORNING for 90 Active Jardiance 25 MG 1 tablet Orally Once a day Not-Taking Vitamin D 50 MCG (1999) 1 capsule Orally Once a day for 30 day(s) Active Diprolene AF 0.05 % 1 application [employer] Once a day for 30 days 02/23/2019 Not-Takin g FreeStyle Lite Test - USE TO TEST BLOOD SUGAR ONCE DAILY for 50 Active diazePAM 5 MG (Schedule IV Drug) T KVNG ONE TABLET BY MOUTH EVERY 6 HOURS NEEDED FOR MUSCLE SPASM Oral for 3 Not-Taking Mupirocin 2 % 1 application [employer] Twice a day for 5 day(s) 03/28/2021 Active Januvia 50 MG as directed Orally O nce a day for 30 days 06/10/2017 Not-Taking Onglyza 5 MG 1 tablet Orally Once a day for 30 day(s) 06/13/2017 Not-Taking Aspirin Adult Low Strength 81 MG 1 tablet Orally Once a day for 30 day(s) Not-Taking Ativan 0.5 MG 1 tablet at bedtime as needed Orally Once a day for 30 days 06/21/2011 Not-Taking HumaLOG KwikPen 100 UNIT/ML 6 units three times a day Active Atenolol 50 MG 1.5 tablet Orally tw ice aday Active Losartan Potassium-HCTZ 100-25 MG TAKE 1 TABLET BY MOUTH EVERY DAY Active Pravastatin Sodium 40 MG 1 tablet Orally Once a day Active Furosemide 20 MG take 2 tablet by heriberto th every day Not-Taking Lantus SoloStar 100 UNIT/ML 22 units q PM once a day Act enzo Warfarin Sodium 5 MG ALTERNATE BETWEEN T AKING 1.5 TABLETS BY MOUTH EVERY DAY AND 2 TABLETS BY MOUTH EVERY DAY DIRECTED Active IMMUNIZATIONS Vaccine Route Administration Date Status Comme nts PPSV23 (Pnemovax) IM Intramuscular 11/13/2012 Administered Flu Vaccine IM Intramuscular 12/08/2012 Administered Prevnar 13 IM Intramuscular 11/12/2013 Administered Fluarix Quadrivalent IM Intramuscular 12/01/2013 Administe red Fluarix Quadrivalent IM Intramuscular 12/07/2014 Administe red Fluarix Quadrivalent IM Intramuscular 11/22/2015 Administe red Fluarix Quadrivalent IM Intramuscular 11/27/2016 Administe red Fluarix Quadrivalent IM Intramuscular 12/10/2017 Administe red PPSV23 (Pnemovax) IM Intramuscular 03/24/2018 Administered Fluarix Quadrivalent IM Intramuscular 11/25/2018 Administe red Influenza High Dose Unknown 12/10/2019 Administered [employer] Covid Vaccine Unknown 06/23/2020 Administered J&J Influenza High Dose IM Intramuscular 11/28/2020 Administer ed SARS-COV-2 Pfizer Unknown 01/04/2021 Administered Influenza High Dose IM Intramuscular 12/19/2021 Administer ed Influenza High Dose IM Intramuscular 11/27/2022 Administer ed Influenza High Dose IM Intramuscular 12/03/2023 Administer ed Flu Vaccine Unknown 12/01/2013 Pending SOCIAL HISTORY Tobacco Use: Social History Observation Description Date Details (start date - stop date) Never Smoker NA - NA Sex Assigned At : Social History Observation Description Sex Assigned At Unknown Tobacco Use/Smoking Question Answer Notes Patient is a nonsmoker Additional Findings: Tobacco Non-User Cu rrent non-smoker, currently using no form of tobacco Alcohol Screen Question Answer Notes Did you have a drink containing alcohol in the p ast year? No Points 0 Interpretation Negative PROBLEMS Problem Type ICD Code Onset Dates Problem Status W/U Status Risk SNOMED Code Notes Problem Thrombocytopenia (D69.6) Active confirmed 440979582 Problem Tubular adenoma (D36.9) Active confirmed 517323009 Problem Nevus (D22.9) Active confirmed 01125013 Problem Mixed hyperlipidemia (E78.2) Active confirmed Mixed hyperlipidemia (075461854) Problem Paroxysmal atrial fibrillation (I48.0) Active confirmed Paroxysmal atri al fibrillation (537034693) Problem Primary insomnia (F51.01) Active confirmed 8847545 Problem Lumbar disc disease (M51.9) Active confirmed 29345454 Problem Essential hypertension (I10) Active confirmed 81084385 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) Active confirmed Long-term curre nt use of anticoagulant (078301729) Problem FPC current use of anticoagulant therapy (Z79.01) Active confirmed Long-term c urrent use of anticoagulant (856153990) Problem Type 2 diabetes mellitus with 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) Active confirmed 24848811 Problem Acute systolic congestive heart failure (I50.21) Active confirmed 316589777 Problem Pressure sore (L89.90) Active confirmed Pressure injury (morphologic abnormality) (9406926286) Problem Encounter for current long-term use of anticoagulants (Z79.01) Active confirmed Long-term curre nt use of anticoagulant (195190907) Problem Abnormal platelets (D69.1) Active confirmed 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) Problem Temporary low platelet count (D69.6) Active confirmed 002614161 Problem 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 455538458 Problem 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) Active confirmed 76257132 Problem Pressure injury of sacral region, unstageable (L89.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) Active confirmed [id number] VITAL SIGNS Blood pressure diastolic 64 mm Hg 10/07/2023 irena ght is up 6 pounds since 04-15-23 Height 73.5 in 10/07/2023 weight is up 6 pounds since 04-15-23 Blood pressure systolic 122 mm Hg 10/07/2023 weig ht is up 6 pounds since 04-15-23 Weight 256 lbs 10/07/2023 weight is up 6 pounds since 04-15-23 BMI 33.31 kg/m2 10/07/2023 weight is up 6 pounds since 04-15-23 Encounters Encounter Location Date Provider Diagnosis Brody Goldberg MD [address] [place] [phone] 10/07/2023 Brody Goldberg Paroxysmal atrial fibrillation I48.0 ; FPC current use of anticoagulant Z79.01 ; 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 ; Tubular adenoma D36.9 ; Mixed hyperlipidemia E78.2 ; Essential hypertension I10 ; Acute systolic congestive heart failure I50.21 ; Colon cancer screening Z12.11 and Encounter for screening for depression Z13.31 Brody Goldberg MD [address] [place] [address] [id number] 09/30/2023 Brody Goldberg Mixed hyperlipidemia E78.2 ; 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 ; Thrombocytopenia D69.6 and Acute systolic congestive heart failure I50.21 Brody Goldberg MD [address] [id number] 03/28/2023 Brody Goldberg 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 ; Mixed hyperlipidemia E78.2 ; Paroxysmal atrial fibrillation I48.0 and vermin exterminator current use of anticoagulant Z79.01 Brody Goldberg MD [address] [place] [address] [id number] 03/01/2023 Brody Goldberg FPC current us e of anticoagulant Z79.01 and Paroxysmal atrial fibrillation I48.0 Brody Goldberg MD [address] [id number] 03/08/2023 Brody Goldberg Paroxysmal atrial fibrillation I48.0 and Encounter for current long-term use of anticoagulants Z79.01 Brody Goldberg MD [address] [place] [address] [id number] 03/15/2023 Brody Goldberg Paroxysmal atrial fibrillation I48.0 and Encounter for current long-term use of anticoagulants Z79.01 Brody Goldberg MD [address] [id number] 04/04/2023 Brody Goldberg Paroxysmal atrial fibrillation I48.0 and Encounter for current long-term use of anticoagulants Z79.01 Brody Goldberg MD [address] [id number] 07/02/2023 Brody Goldberg Paroxysmal atrial fibrillation I48.0 and Encounter for current long-term use of anticoagulants Z79.01 Brody Goldberg MD [address] [place] [address] [id number] 07/16/2023 Brody Goldberg Encounter for curren t long-term use of anticoagulants Z79.01 Brody Goldberg MD [address] [place] [address] [id number] 07/30/2023 Brody Bombardier Paroxysmal atrial fibrillation I48.0 ; Encounter for current long-term use of anticoagulants Z79.01 and vermin exterminator current use of anticoagulant therapy Z79.01 Brody Goldberg MD [address] [place] [address] [id number] 08/13/2023 Brody Bombardier Paroxysmal atrial fibrillation I48.0 and Encounter for current long-term use of anticoagulants Z79.01 Brody Goldberg MD [address] [place] [address] [id number] 08/27/2023 Brody Bombardier Paroxysmal atrial fibrillation I48.0 and vermin exterminator current use of anticoagulant Z79.01 Brody Goldberg MD [address] [place] [address] [id number] 09/10/2023 Brody Bombardier Paroxysmal atrial fibrillation I48.0 and FPC current use of anticoagulant Z79.01 Brody Goldberg MD [address] [place] [address] [id number] 09/24/2023 Brody Bombardier Paroxysmal atrial fibrillation I48.0 and FPC current use of anticoagulant Z79.01 Brody Goldberg MD [address] [place] [address] [id number] 10/22/2023 Brody Bombardier Paroxysmal atrial fibrillation I48.0 and vermin exterminator current use of anticoagulant Z79.01 Brody Goldberg MD [address] [place] [address] [id number] 11/07/2023 Brody Bombardier Paroxysmal atrial fibrillation I48.0 and Encounter for current long-term use of anticoagulants Z79.01 Brody Goldberg MD [address] [place] [address] [id number] 11/19/2023 Brody Bombardier Paroxysmal atrial fibrillation I48.0 and Encounter for current long-term use of anticoagulants Z79.01 Brody Goldberg MD [address] [place] [address] [id number] 12/03/2023 Brody Bombardier Paroxysmal atrial fibrillation I48.0 ; Encounter for immunization Z23 and Encounter for current long-term use of anticoagulants Z79.01 Brody Goldberg MD [address] [place] [address] [id number] 12/17/2023 Brody Bombardier Paroxysmal atrial fibrillation I48.0 and Encounter for current long-term use of anticoagulants Z79.01 Brody Goldberg MD [address] [place] [address] [id number] 12/31/2023 Brody Bombardier Paroxysmal atrial fibrillation I48.0 and Encounter for current long-term use of anticoagulants Z79.01 Brody Goldberg MD [address] [place] [address] [id number] 01/07/2024 Brody Bombardier Paroxysmal atrial fibrillation I48.0 and Encounter for current long-term use of anticoagulants Z79.01 Brody Goldberg MD [address] [place] [address] [id number] 01/21/2024 Brody Bombardier Paroxysmal atrial fibrillation I48.0 and 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 exterminator current use of anticoagulant Z79.01 Brody Goldberg MD [address] [place] [address] [id number] 02/04/2024 Brody Bombardier Paroxysmal atrial fibrillation I48.0 and FPC current use of anticoagulant Z79.01 Brody Goldberg MD [address] [place] [address] [id number] 02/25/2024 Brody Bombardier Paroxysmal atrial fibrillation I48.0 and vermin exterminator current use of anticoagulant Z79.01 Brody Goldberg MD [address] [place] [address] [id number] 04/04/2023 Brody Goldberg vermin exterminator current us e of anticoagulant Z79.01 ; Mixed hyperlipidemia E78.2 and 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 Brody Goldberg MD [address] [place] [address] [id number] 04/15/2023 Brody Goldberg COVID-19 U07.1 Brody Goldberg MD [address] [place] [address] [id number] 02/27/2023 Brody Goldberg MD [address] [place] [address] [id number] 05/13/2023 Brody Goldberg MD [address] [place] [address] [id number] 05/18/2023 Brody Goldberg MD [address] [place] [address] [id number] 06/25/2023 Brody Goldberg MD [address] [place] [address] [id number] 11/05/2023 Brody Goldberg MD [address] [place] [address] [id number] 02/25/2024 Brody Goldberg ASSESSMENTS Encounter Date Diagnosis Assessment Notes Treatment Notes Treatment Clinical Notes 10/07/2023 Paroxysmal atrial fibrillation (ICD-10 - I48.0) not having any problems, will continue current regiment 10/07/2023 FPC current us e of anticoagulant (ICD-10 - Z79.01) stable, will continue current regiment 09/30/2023 Mixed hyperlipidemia (ICD-10 - E78.2) 09/30/2023 Type 2 diabetes mellitus with diabetic neuropathy (ICD-10 - E11.40) 03/28/2023 Mixed hyperlipidemia (ICD-10 - E78.2) 03/28/2023 Type 2 diabetes mellitus with diabetic neuropathy (ICD-10 - E11.40) 03/01/2023 Paroxysmal atrial fibrillation (ICD-10 - I48.0) 03/01/2023 vermin exterminator current us e of anticoagulant (ICD-10 - Z79.01) 03/08/2023 Paroxysmal atrial fibrillation (ICD-10 - I48.0) 03/08/2023 Encounter for curren t long-term use of anticoagulants (ICD-10 - Z79.01) 03/15/2023 Paroxysmal atrial fibrillation (ICD-10 - I48.0) 03/15/2023 Encounter for curren t long-term use of anticoagulants (ICD-10 - Z79.01) 04/04/2023 Paroxysmal atrial fibrillation (ICD-10 - I48.0) 04/04/2023 Encounter for curren t long-term use of anticoagulants (ICD-10 - Z79.01) 07/02/2023 Paroxysmal atrial fibrillation (ICD-10 - I48.0) 07/02/2023 Encounter for curren t long-term use of anticoagulants (ICD-10 - Z79.01) 07/16/2023 Encounter for curren t long-term use of anticoagulants (ICD-10 - Z79.01) 07/30/2023 Paroxysmal atrial fibrillation (ICD-10 - I48.0) 07/30/2023 Encounter for curren t long-term use of anticoagulants (ICD-10 - Z79.01) 08/13/2023 Paroxysmal atrial fibrillation (ICD-10 - I48.0) 08/13/2023 Encounter for curren t long-term use of anticoagulants (ICD-10 - Z79.01) 08/27/2023 Paroxysmal atrial fibrillation (ICD-10 - I48.0) 08/27/2023 vermin exterminator current us e of anticoagulant (ICD-10 - Z79.01) 09/10/2023 Paroxysmal atrial fibrillation (ICD-10 - I48.0) 09/10/2023 FPC current us e of anticoagulant (ICD-10 - Z79.01) 09/24/2023 Paroxysmal atrial fibrillation (ICD-10 - I48.0) 09/24/2023 FPC current us e of anticoagulant (ICD-10 - Z79.01) 10/22/2023 Paroxysmal atrial fibrillation (ICD-10 - I48.0) 10/22/2023 FPC current us e of anticoagulant (ICD-10 - Z79.01) 11/07/2023 Paroxysmal atrial fibrillation (ICD-10 - I48.0) 11/07/2023 Encounter for curren t long-term use of anticoagulants (ICD-10 - Z79.01) 11/19/2023 Paroxysmal atrial fibrillation (ICD-10 - I48.0) 11/19/2023 Encounter for curren t long-term use of anticoagulants (ICD-10 - Z79.01) 12/03/2023 Paroxysmal atrial fibrillation (ICD-10 - I48.0) 12/03/2023 Encounter for immunization (ICD-10 - Z23) 12/17/2023 Paroxysmal atrial fibrillation (ICD-10 - I48.0) 12/17/2023 Encounter for curren t long-term use of anticoagulants (ICD-10 - Z79.01) 12/31/2023 Paroxysmal atrial fibrillation (ICD-10 - I48.0) 12/31/2023 Encounter for curren t long-term use of anticoagulants (ICD-10 - Z79.01) 01/07/2024 Paroxysmal atrial fibrillation (ICD-10 - I48.0) 01/07/2024 Encounter for curren t long-term use of anticoagulants (ICD-10 - Z79.01) 01/21/2024 Paroxysmal atrial fibrillation (ICD-10 - I48.0) 01/21/2024 FPC current us e of anticoagulant (ICD-10 - Z79.01) 02/04/2024 Paroxysmal atrial fibrillation (ICD-10 - I48.0) 02/04/2024 vermin exterminator current us e of anticoagulant (ICD-10 - Z79.01) 02/25/2024 Paroxysmal atrial fibrillation (ICD-10 - I48.0) 02/25/2024 vermin exterminator current us e of anticoagulant (ICD-10 - Z79.01) 04/04/2023 Mixed hyperlipidemia (ICD-10 - E78.2) stable, will continue current regiment 04/04/2023 FPC current us e of anticoagulant (ICD-10 - Z79.01) not having any problems, will continue current regiment 04/15/2023 COVID-19 (ICD-10 - U07.1) not appearing very sick and not getting worse. too late to take paxlovid. 10/07/2023 Type 2 diabetes mellitus with diabetic neuropathy (ICD-10 - E11.40) seeing endocrine, will continue current regiment 09/30/2023 Thrombocytopenia (ICD-10 - D69.6) 03/28/2023 Paroxysmal atrial fibrillation (ICD-10 - I48.0) 07/30/2023 FPC current us e of anticoagulant therapy (ICD-10 - Z79.01) 12/03/2023 Encounter for curren t long-term use of anticoagulants (ICD-10 - Z79.01) 04/04/2023 Type 2 diabetes mellitus with diabetic neuropathy (ICD-10 - E11.40) has been doing well on low carb diet, will continue current regiment 10/07/2023 Tubular adenoma (ICD-10 - D36.9) talked about need for colonoscopy 09/30/2023 Acute systolic congestive heart failure (ICD-10 - I50.21) 03/28/2023 vermin exterminator current us e of anticoagulant (ICD-10 - Z79.01) 10/07/2023 Mixed hyperlipidemia (ICD-10 - E78.2) stable, will continue current regiment 10/07/2023 Essential hypertensi on (ICD-10 - I10) stable, will continue current regiment 10/07/2023 Acute systolic congestive heart failure (ICD-10 - I50.21) doing well, will continue current regiment 10/07/2023 Colon cancer screeni ng (ICD-10 - Z12.11) guaiac negative 10/07/2023 Encounter for screening for depression (ICD-10 - Z13.31) negative screen PLAN OF TREATMENT Pending Test Test Name Order Date CT SINUS W&WO CONTRAST 12/08/2012 Prothrombin Time INR 03/12/2024 Next Appt Details Provider Name:Brody velarde, 03/12/2024 08:15:00 AM, [address] [place] [address], [address], [phone], Provider Name:Brody reyesr, 04/02/2024 07:30:00 AM, [address] [place] [address], [address], [phone], Provider Name:Brody reyesr, 04/09/2024 09:00:00 AM, [address] [place] [address], [address], [phone], Provider Name:Brody reyesr, 10/01/2024 08:00:00 AM, [address] [place] [address], [phone], Provider Name:Brody reyesr, 10/08/2024 11:00:00 AM, [address] [place] [address], [address], [phone], Insurance Providers Payer Name Payer Address Payer Phone Subscriber Number Group Number Insured Name Patient Relationship to Insured Coverage Start Date Coverage End Date [employer] [address] [place] [address] [id number] Jayy Rodriguez Self - patient is the insured 3 [employer] [place] [address] [place] [phone] [id number] Jayy Rodriguez Self - patient is the insured MEDICAL (GENERAL) HISTORY Medical History History ICD Code prediabetes in 2008 tubular adenoma at [facility] py 2005; colonoscopy 09/11/13 - repeat 5 years not sure if he is going to have another 2020 myalgia on rosuvastatin 2022 says he is no further colonoscopies . knows that he had a lot of polyps
--- OUTSIDE RECORDS SUMMARY | 2024-02-26 20:43 | XMS_ITS ---
Author Organization Brody Goldberg MD Address [address] [place] [address] [phone] Care Team Providers Care Footwear Sales Associate Name Role Phone Brody Goldberg Primary Care Provider [phone] RESULTS Component Value Reference Range Notes Prothrombin Time INR Reviewed date:02/17/2024 08:32:12 AM Interpretation: Performing Lab:[facility], [address] [place] [phone] Notes/Report: Prothrombin Time 20.5 10.9-12.4 SEC INTERNATIONAL [...] Brody Goldberg MD [address] [place] [address] [phone] 02/04/2024 Brody Goldberg Paroxysmal atrial fibrillation I48.0 and 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 service current use of anticoagulant Z79.01 ASSESSMENTS Encounter Date Diagnosis Assessment Notes Treatment Notes Treatment Clinical Notes 02/04/2024 Paroxysmal atrial fibrillation (ICD-10 - I48.0) 02/04/2024 intermodal customer service current us e of anticoagulant (ICD-10 - Z79.01) PLAN OF TREATMENT Next Appt Details Provider Name:Brody velarde, 03/12/2024 08:15:00 AM, [address] [place] [address], [address], DORA Rodriguez, [phone], Provider Name:Brody velarde, 04/02/2024 07:30:00 AM, [address] [place] [address], [address], D[place]A Rodriguez, [phone], Provider Name:Brody velarde, 04/09/2024 09:00:00 AM, [address] [place] [address], [address], DORA Rodriguez, [phone], Provider Name:Brody velarde, 10/01/2024 08:00:00 AM, [address] [place] [address], [address], D[place]A Rodriguez, [phone], Provider Name:Brody velarde, 10/08/2024 11:00:00 AM, [address] [place] [address], [address], DORA Rodriguez, [phone],
== END 2024-02-25 11:27 | disposition home or self-care (01) ==
LOC: HO.LNP 11:26
PROVIDERS: Visit Provider Internal Medicine
DX: I48.0 Paroxysmal atrial fibrillation (principal); Z79.01 Long term (current) use of anticoagulants
CPT/HCPCS: 85610

== ENCOUNTER 2024-03-12 12:02 | Outpatient (REF) | payer MEDICARE, SELFPAY ==
--- OUTSIDE RECORDS SUMMARY | 2024-03-12 12:05 | XMS_ITS ---
Author Organization Brody Goldberg MD Address [address] [place] [address] [phone] Care Team Providers Care Repair Specialist Name Role Phone Brody Goldberg Primary Care Provider ALLERGIES Allergen (clinical drug ingredient) Drug/Non Drug Allergy documented on EMR Reaction Allergy Type Onset Date Status metformin Metformin HCl diarrhea Drug Allergy Act enzo lisinopril Lisinopril couigh Drug Allergy Activ e REASON FOR VISIT 3 WK F/U Encounters Encounter Location Date Provider Diagnosis Brody Goldberg MD [facility] [address] [place] [address] [phone] 02/27/2024 Brody Goldberg PLAN OF TREATMENT Next Appt Details Provider Name:Brody velarde, 04/02/2024 07:30:00 AM, [address] [place] [address], [address], [phone], Provider Name:Brody velarde, 04/09/2024 09:00:00 AM, [address] [place] [address], [phone], Provider Name:Brody velarde, 10/01/2024 08:00:00 AM, [address] [place] [address], [phone], Provider Name:Brody velarde, 10/08/2024 11:00:00 AM, [address] [place] [address], [address], [place], [place], [phone],
--- OUTSIDE RECORDS SUMMARY | 2024-03-12 12:06 | XMS_ITS ---
Author Organization Brody Goldberg MD Address [address] [place] [address] [phone] Care Team Providers Care Manager Convention Name Role Phone Brody Goldberg Primary Care Provider RESULTS Component Value Reference Range Notes Prothrombin Time INR Reviewed date:02/25/2024 12:31:15 PM Interpretation: Performing Lab:[facility], [address] [place] [phone] Notes/Report: Prothrombin Time 26.0 10.9-12.4 SEC INTERNATIONAL [...] Brody Goldberg MD [address] [place] [address] [phone] 02/25/2024 Brody Goldberg Paroxysmal atrial fibrillation I48.0 and extermination inspector current use of anticoagulant Z79.01 ASSESSMENTS Encounter Date Diagnosis Assessment Notes Treatment Notes Treatment Clinical Notes 02/25/2024 Paroxysmal atrial fibrillation (ICD-10 - I48.0) 02/25/2024 extermination inspector current us e of anticoagulant (ICD-10 - Z79.01) PLAN OF TREATMENT Next Appt Details Provider Name:Brody velarde, 04/02/2024 07:30:00 AM, [address] [place] [address], [address], D[place] Rodriguez, [phone], Provider Name:Brody velarde, 04/09/2024 09:00:00 AM, [address] [place] [address], [address], D[place]A Rodriguez, [phone], Provider Name:Brody velarde, 10/01/2024 08:00:00 AM, [address] [place] [address], [address], D[place]A Rodriguez, [phone], Provider Name:Brody velarde, 10/08/2024 11:00:00 AM, [address] [place] [address], [address], D[place]A Rodriguez, [phone],
--- OUTSIDE RECORDS SUMMARY | 2024-03-12 12:06 | XMS_ITS | Patient Health Record ---
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 [employer]end[employer]ade Name Role Phone Brody Goldberg Primary Care Provider [phone] ALLERGIES Allergen (clinical drug ingredient) Drug/Non Drug Allergy documented on EMR Reaction Allergy Type Onset Date Status metformin Metformin HCl diarrhea Drug Allergy Act enzo lisinopril Lisinopril couigh Drug Allergy Activ e RESULTS Component Value Reference Range Notes Prothrombin Time INR Reviewed date:03/15/2023 11:36:14 AM Interpretation: Performing Lab:[facility], [address] [place] [phone] Notes/Report: Prothrombin Time 29.2 11.1-13.3 SEC INTERNATIONAL [...] mechanical prosthetic heart valves: 2.5 - 3.5 Hold Gold Reviewed date:03/28/2023 12:11:08 PM Interpretation: Performing Lab:[facility], [address] [place] [phone] Notes/Report: Hold Gold See Note Specimen held untested for 24 hours; Call to request Chemistry testing. Prothrombin Time INR Reviewed date:03/29/2023 06:17:44 AM Interpretation: Performing Lab:[facility], [address] [place] [phone] Notes/Report: Prothrombin Time 23.7 11.1-13.3 SEC INTERNATIONAL [...] Panel Reviewed date:03/28/2023 05:24:13 PM Interpretation: Performing Lab:[facility], [address] [place] [phone] Notes/Report: Bilirubin Total 0.4 0.0-1.0 mg/dL Bilirubin Direct 0.2 0.0-0.5 mg/dL Aspartate Amino Transferase 18 5-37 U/L Alanine Aminotransferase 16 0-40 U/L Total Protein 8.0 6.5-8.0 g/dL Albumin Level 4.5 3.5-5.0 g/dL Alkaline Phosphatase 61 39-117 U/L Glucose Fasting Reviewed date:03/28/2023 05:16:58 PM Interpretation: Performing Lab:[address] [address] Notes/Report: Glucose Fasting 149 60-99 mg/dL A fasting glucose of 126 mg/dl or greater on more than one occasion is considered diagnostic of diabetes. Lipid Panel with Reflex Reviewed date:03/28/2023 05:14:36 PM Interpretation: Performing Lab:[address] [phone] Notes/Report: Triglycerides 247 <150 mg/dL Desirable Triglyceride: [...] A1c Reviewed date:03/28/2023 12:14:44 PM Interpretation: Performing Lab:[address] [address] Notes/Report: Hemoglobin A1c % 7.1 <6.0 % [...] average glucose, using the formula of the X7K-Gcyhxew Average Glucose study (ADAG), Diabetes Care, Vol.31,#8, Oct. 2007 Prothrombin Time INR Reviewed date:04/04/2023 11:49:49 AM Interpretation: Performing Lab:[facility], [address] [place] [phone] Notes/Report: Prothrombin Time 28.3 11.1-13.3 SEC INTERNATIONAL [...] INR Reviewed date:07/02/2023 11:45:41 AM Interpretation: Performing Lab:[facility], [address] [place] [phone] Notes/Report: Prothrombin Time 28.7 11.1-13.3 SEC INTERNATIONAL [...] INR Reviewed date:07/16/2023 12:18:39 PM Interpretation: Performing Lab:[address] [address] Notes/Report: Prothrombin Time 27.7 11.1-13.3 SEC INTERNATIONAL [...] Blood Reviewed date:07/23/2023 08:27:13 AM Interpretation: Performing Lab:[facility], [address] [place] [phone] Notes/Report: Glucose, Whole Blood 184 60-115 mg/dL METER #: [id number] Testing performed [facility] Grace Gonzalez [facility]. Prothrombin Time INR Reviewed date:07/30/2023 12:41:13 PM Interpretation: Performing Lab:[facility], [address] [place] [phone] Notes/Report: Prothrombin Time 27.0 11.1-13.3 SEC INTERNATIONAL [...] INR Reviewed date:08/13/2023 11:38:41 AM Interpretation: Performing Lab:[facility], [address] [place] [phone] Notes/Report: Prothrombin Time 28.5 11.1-13.3 SEC INTERNATIONAL [...] INR Reviewed date:08/27/2023 11:27:23 AM Interpretation: Performing Lab:[facility], [address] [place] [phone] Notes/Report: Prothrombin Time 32.3 11.1-13.3 SEC INTERNATIONAL [...] INR Reviewed date:09/10/2023 12:34:36 PM Interpretation: Performing Lab:[facility], [address] [place] [phone] Notes/Report: Prothrombin Time 34.1 11.1-13.3 SEC INTERNATIONAL [...] INR Reviewed date:09/24/2023 12:56:05 PM Interpretation: Performing Lab:[address] [phone] Notes/Report: Prothrombin Time 30.7 11.1-13.3 SEC INTERNATIONAL [...] ff Reviewed date:09/30/2023 12:39:19 PM Interpretation: Performing Lab:[address] [phone] Notes/Report: White Blood Count 8.1 4.8-10.8 X10*3/uL [...] Microscopic Reviewed date:09/30/2023 05:57:39 PM Interpretation: Performing Lab:[facility], [address] [place] [phone] Notes/Report: Color Urine Yellow Appearance Urine Clear PH 6.0 5.0-9.0 Glucose Urine UA Negative Negative mg/dL Urine Blood Negative Negative Specific [place] - Urine 1.020 1.005-1.025 Urine Protein Negative Neg-Trace mg/dL Urine Ketones Negative Negative mg/dL Nitrite Urine Negative Negative Leukocyte Esterase Urine Negative Negative RBC Urine 0-2 0-2 /HPF WBC Urine 0-5 0-5 /HPF Squamous Epithelial Cell Urine 0-2 0-2 /HPF Bacteria Urine None Seen None Seen Hyaline Casts Urine 0-2 0-2 /LPF Comprehensive [place]. Panel Fa Reviewed date:09/30/2023 06:19:38 PM Interpretation: Performing Lab:[facility], [address] [place] [phone] Notes/Report: Sodium 143 135-145 mmol/L Potassium 4.3 3.3-5.1 mmol/L Chloride 105 96-108 mmol/L Carbon Dioxide 30 22-29 mmol/L Anion Gap 12 12-20 Blood Urea Nitrogen 25 9-16 mg/dL Creatinine 0.91 0.5-1.4 mg/dL Estimated Glomerular Filt Rate > 60 NOTE: For -Fijian individuals, multiply the result by 1.210. Chronic [...] Panel Reviewed date:09/30/2023 12:39:39 PM Interpretation: Performing Lab:[facility], [address] [place] [phone] Notes/Report: Triglycerides 198 <150 mg/dL Desirable Triglyceride: [...] (Free>4and<10) Reviewed date:09/30/2023 12:37:03 PM Interpretation: Performing Lab:[facility], [address] [place] [phone] Notes/Report: PSA,Total (Free>4and<10) 1.16 0.00-4.00 ng/mL A [...] Random Reviewed date:09/30/2023 12:37:57 PM Interpretation: Performing Lab:[address] [address] Notes/Report: Creatinine Urine 135.02 Microalbumin Urine 26.0 Microalbum/Creatinine Ratio Ur 19.2 <30 ug/mg cr Albumin/Creatinine Ratio Reference Ranges: Normal: < 30 ug/mg creatinine Microalbuminuria: 30 - 300 ug/mg creatinine Clinical Albuminuria: > 300 ug/mg creatinine Hemoglobin A1c Reviewed date:09/30/2023 02:07:09 PM Interpretation: Performing Lab:[address] [phone] Notes/Report: Hemoglobin A1c % 7.2 <6.0 % [...] average glucose, using the formula of the X1B-Sdwsejp Average Glucose study (ADAG), Diabetes Care, Vol.31,#8, 2007 Glucose, Whole Blood Reviewed date:09/30/2023 06:15:31 PM Interpretation: Performing Lab:[address] [address] Notes/Report: Glucose, Whole Blood 144 60-115 mg/dL METER #: [id number] Testing performed in the [facility] , [address]. SLIDE REVIEW Reviewed date:09/30/2023 02:09:35 PM Interpretation: Performing Lab:[address] [address] Notes/Report: SLIDE REVIEW VERIFIED Occult Blood, Stool, Guaiac Reviewed date:10/07/2023 11:34:21 AM Interpretation:Negative Performing Lab: Notes/Report: Negative Occult Blood, Stool, Guaiac Neg Prothrombin Time INR Reviewed date:10/07/2023 12:33:09 PM Interpretation: Performing Lab:[address] [address] Notes/Report: Prothrombin Time 37.8 11.1-13.3 SEC INTERNATIONAL [...] INR Reviewed date:10/22/2023 12:23:47 PM Interpretation: Performing Lab:[facility], [address] [place] [phone] Notes/Report: Prothrombin Time 37.2 11.1-13.3 SEC INTERNATIONAL [...] INR Reviewed date:11/07/2023 12:43:56 PM Interpretation: Performing Lab:[facility], [address] [place] [phone] Notes/Report: Prothrombin Time 37.5 11.1-13.3 SEC INTERNATIONAL [...] INR Reviewed date:11/19/2023 12:00:58 PM Interpretation: Performing Lab:[facility], [address] [place] [phone] Notes/Report: Prothrombin Time 34.9 11.1-13.3 SEC INTERNATIONAL [...] INR Reviewed date:12/03/2023 12:04:42 PM Interpretation: Performing Lab:[facility], [address] [place] [phone] Notes/Report: Prothrombin Time 23.3 11.1-13.3 SEC INTERNATIONAL [...] INR Reviewed date:12/17/2023 12:24:57 PM Interpretation: Performing Lab:[facility], [address] [place] [phone] Notes/Report: Prothrombin Time 27.8 10.9-12.4 SEC INTERNATIONAL [...] INR Reviewed date:01/02/2024 08:22:51 AM Interpretation: Performing Lab:[facility], [address] [place] [phone] Notes/Report: Prothrombin Time 42.1 10.9-12.4 SEC INTERNATIONAL [...] Blood Reviewed date:01/05/2024 05:02:16 PM Interpretation: Performing Lab:[address] [address] Notes/Report: Glucose, Whole Blood 190 60-115 mg/dL METER #: [id number] Testing performed in the [facility] Grace Gonzalez [facility]. Prothrombin Time INR Reviewed date:01/07/2024 01:11:11 PM Interpretation: Performing Lab:[facility], [address] [place] [phone] Notes/Report: Prothrombin Time 31.0 10.9-12.4 SEC INTERNATIONAL [...] INR Reviewed date:01/21/2024 12:49:48 PM Interpretation: Performing Lab:[address] [address] Notes/Report: Prothrombin Time 31.9 10.9-12.4 SEC INTERNATIONAL [...] INR Reviewed date:02/17/2024 08:32:12 AM Interpretation: Performing Lab:[facility], [address] [place] [phone] Notes/Report: Prothrombin Time 20.5 10.9-12.4 SEC INTERNATIONAL [...] INR Reviewed date:02/25/2024 12:31:15 PM Interpretation: Performing Lab:[facility], [address] [place] [phone] Notes/Report: Prothrombin Time 26.0 10.9-12.4 SEC INTERNATIONAL [...] HCl 20 MG TAKE 1 TABLET BY UT EVERY MORNING for 90 Active Jardiance 25 MG 1 tablet Orally Once a day Not-Taking Vitamin D 50 MCG (1999 UT) 1 capsule Orally Once a day for 30 day(s) Active Diprolene AF 0.05 % 1 application 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 ally Once a day for 30 days 02/23/2019 Not-Takin g FreeStyle Lite Test - USE TO TEST BLOOD SUGAR ONCE DAILY for 50 Active diazePAM 5 MG (Schedule IV Drug) T KVNG ONE TABLET BY MOUTH EVERY 6 HOURS NEEDED FOR MUSCLE SPASM Oral for 3 Not-Taking Mupirocin 2 % 1 application 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 ally Twice a day for 5 day(s) 03/28/2021 Active Januvia 50 MG as directed Orally O nce a day for 30 days 06/10/2017 Not-Taking Atenolol 50 MG TAKE 2 TABLETS BY MO [facility] TWICE DAILY for 90 Active Onglyza 5 MG 1 tablet Orally Once a day for 30 day(s) 06/13/2017 Not-Taking Aspirin Adult Low Strength 81 MG 1 tablet Orally Once a day for 30 day(s) Not-Taking Ativan 0.5 MG 1 tablet at bedtime as needed Orally Once a day for 30 days 06/21/2011 Not-Taking HumaLOG KwikPen 100 UNIT/ML 6 units three times a day Active Losartan Potassium-HCTZ 100-25 MG TAKE 1 TABLET BY MOUTH EVERY DAY Active Pravastatin Sodium 40 MG 1 tablet Orally Once a day Active Furosemide 20 MG take 2 tablet by heriberto every day Not-Taking Lantus SoloStar 100 UNIT/ML [...] Code Notes Problem Thrombocytopenia (D69.6) Active confirmed 685657699 Problem Tubular adenoma (D36.9) Active confirmed 300362791 Problem Nevus (D22.9) Active confirmed 59868124 Problem Mixed hyperlipidemia (E78.2) Active confirmed Mixed hyperlipidemia (272883661) Problem Paroxysmal atrial fibrillation (I48.0) Active confirmed Paroxysmal atri al fibrillation (838486701) Problem Primary insomnia (F51.01) Active confirmed 4672897 Problem Lumbar disc disease (M51.9) Active confirmed 82830398 Problem Essential hypertension (I10) Active confirmed 22514184 Problem watermaster current use of anticoagulant (Z79.01) Active confirmed Long-term curre nt use of anticoagulant (189155098) Problem watermaster current use of anticoagulant therapy (Z79.01) Active confirmed Long-term c urrent use of anticoagulant (445197203) Problem Type 2 diabetes mellitus with 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) Active confirmed 96936985 Problem Acute systolic congestive heart failure (I50.21) Active confirmed 314319580 Problem Pressure sore (L89.90) Active confirmed Pressure injury (morphologic abnormality) (4180570059) Problem Encounter for current long-term use of anticoagulants (Z79.01) Active confirmed Long-term curre nt use of anticoagulant (631917495) Problem Abnormal platelets (D69.1) Active confirmed 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) Problem Temporary low platelet count (D69.6) Active confirmed 391929816 Problem 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 102464915 Problem 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) Active confirmed 12639851 Problem Pressure injury of sacral region, unstageable (L89.150) Active confirmed [id number] VITAL SIGNS Blood pressure diastolic 64 mm [...] Date Provider Diagnosis Brody Goldberg MD [address] [place] [id number] 10/07/2023 Brody Goldberg Paroxysmal atrial fibrillation I48.0 ; correction current use of anticoagulant Z79.01 ; 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 ; Tubular adenoma D36.9 ; Mixed hyperlipidemia E78.2 ; Essential hypertension I10 ; Acute systolic congestive heart failure I50.21 ; Colon cancer screening Z12.11 and Encounter for screening for depression Z13.31 Brody Goldberg MD [address] [place] [address] [id number] 09/30/2023 Brody Goldberg Mixed hyperlipidemia E78.2 ; 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 ; Thrombocytopenia D69.6 and Acute systolic congestive heart failure I50.21 Brody Goldberg MD [address] [place] [id number] 03/28/2023 Brody Goldberg 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 ; Mixed hyperlipidemia E78.2 ; Paroxysmal atrial fibrillation I48.0 and watermaster current use of anticoagulant Z79.01 Brody Goldberg MD [address] [place] [address] [id number] 03/15/2023 Brody Goldberg Paroxysmal atrial fibrillation I48.0 and Encounter for current long-term use of anticoagulants Z79.01 Brody Goldberg MD [address] [place] [address] [id number] 04/04/2023 Brody Bombardier Paroxysmal atrial fibrillation I48.0 and Encounter for current long-term use of anticoagulants Z79.01 Brody Goldberg MD [address] [place] [address] [id number] 07/02/2023 Brody Bombardier Paroxysmal atrial fibrillation I48.0 and Encounter for current long-term use of anticoagulants Z79.01 Brody Goldberg MD [address] [place] [address] [id number] 07/16/2023 Brody Goldberg Encounter for curren t long-term use of anticoagulants Z79.01 Brody Goldberg MD [address] [place] [address] [id number] 07/30/2023 Brody Bombardier Paroxysmal atrial fibrillation I48.0 ; Encounter for current long-term use of anticoagulants Z79.01 and correction current use of anticoagulant therapy Z79.01 Brody Goldberg MD [address] [place] [address] [id number] 08/13/2023 Brody Bombardier Paroxysmal atrial fibrillation I48.0 and Encounter for current long-term use of anticoagulants Z79.01 Brody Goldberg MD [address] [place] [address] [id number] 08/27/2023 Brody Bombardier Paroxysmal atrial fibrillation I48.0 and correction current use of anticoagulant Z79.01 Brody Goldberg MD [address] [place] [address] [id number] 09/10/2023 Brody Bombardier Paroxysmal atrial fibrillation I48.0 and correction current use of anticoagulant Z79.01 Brody Goldberg MD [address] [place] [address] [id number] 09/24/2023 Brody Bombardier Paroxysmal atrial fibrillation I48.0 and watermaster current use of anticoagulant Z79.01 Brody Goldberg MD [address] [place] [address] [id number] 10/22/2023 Brody Bombardier Paroxysmal atrial fibrillation I48.0 and watermaster current use of anticoagulant Z79.01 Brody Goldberg MD [address] [place] [address] [id number] 11/07/2023 Brody Bombardier Paroxysmal atrial fibrillation I48.0 and Encounter for current long-term use of anticoagulants Z79.01 Brody Goldberg MD [address] [place] [address] [id number] 11/19/2023 Brody Bombardier Paroxysmal atrial fibrillation I48.0 and Encounter for current long-term use of anticoagulants Z79.01 Brody Goldberg MD [address] [place] [address] [id number] 12/03/2023 Brody Bombardier Paroxysmal atrial fibrillation I48.0 ; Encounter for immunization Z23 and Encounter for current long-term use of anticoagulants Z79.01 Brody Goldberg MD [address] [place] [address] [id number] 12/17/2023 Brody Bombardier Paroxysmal atrial fibrillation I48.0 and Encounter for current long-term use of anticoagulants Z79.01 Brody Goldberg MD [address] [place] [address] [id number] 12/31/2023 Brody Bombardier Paroxysmal atrial fibrillation I48.0 and Encounter for current long-term use of anticoagulants Z79.01 Brody Goldberg MD [address] [place] [address] [id number] 01/07/2024 Brody Bombardier Paroxysmal atrial fibrillation I48.0 and Encounter for current long-term use of anticoagulants Z79.01 Brody Goldberg MD [address] [place] [address] [id number] 01/21/2024 Brody Bombardier Paroxysmal atrial fibrillation I48.0 and watermaster current use of anticoagulant Z79.01 Brody Goldberg MD [address] [place] [address] [id number] 02/04/2024 Brody Bombardier Paroxysmal atrial fibrillation I48.0 and watermaster current use of anticoagulant Z79.01 Brody Goldberg MD [address] [place] [address] [id number] 02/25/2024 Brody Bombardier Paroxysmal atrial fibrillation I48.0 and correction current use of anticoagulant Z79.01 Brody Goldberg MD [address] [place] [address] [id number] 03/12/2024 Brody Bombardier Paroxysmal atrial fibrillation I48.0 and correction current use of anticoagulant Z79.01 Brody Goldberg MD [address] [place] [address] [id number] 04/04/2023 Brody Bombdaltoner correction current us e of anticoagulant Z79.01 ; Mixed hyperlipidemia E78.2 and 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 Brody Goldberg MD [address] [place] [address] [id number] 02/27/2024 Brody Goldberg MD [address] [place] [address] [id number] 04/15/2023 Brody Goldberg COVID-19 U07.1 Brody Goldberg MD [address] [place] [address] [id number] 05/13/2023 Brody Goldberg MD [address] [place] [address] [id number] 05/18/2023 Brody Goldberg MD [address] [place] [address] [id number] 06/25/2023 Brody Goldberg MD [address] [place] [address] [id number] 11/05/2023 Brody Goldberg MD [address] [place] [address] [id number] 02/25/2024 Brody Goldberg ASSESSMENTS Encounter Date Diagnosis Assessment Notes Treatment Notes Treatment Clinical Notes 10/07/2023 Paroxysmal atrial fibrillation (ICD-10 - I48.0) not having any problems, will continue current regiment 10/07/2023 watermaster current us e of anticoagulant (ICD-10 - Z79.01) stable, will continue current regiment 09/30/2023 Mixed hyperlipidemia (ICD-10 - E78.2) 09/30/2023 Type 2 diabetes mellitus with diabetic neuropathy (ICD-10 - E11.40) 03/28/2023 Mixed hyperlipidemia (ICD-10 - E78.2) 03/28/2023 Type 2 diabetes mellitus with diabetic neuropathy (ICD-10 - E11.40) 03/15/2023 Paroxysmal atrial fibrillation (ICD-10 - I48.0) [...] Paroxysmal atrial fibrillation (ICD-10 - I48.0) 08/27/2023 watermaster current us e of anticoagulant (ICD-10 - Z79.01) 09/10/2023 Paroxysmal atrial fibrillation (ICD-10 - I48.0) 09/10/2023 watermaster current us e of anticoagulant (ICD-10 - Z79.01) 09/24/2023 Paroxysmal atrial fibrillation (ICD-10 - I48.0) 09/24/2023 watermaster current us e of anticoagulant (ICD-10 - Z79.01) 10/22/2023 Paroxysmal atrial fibrillation (ICD-10 - I48.0) 10/22/2023 watermaster current us e of anticoagulant (ICD-10 - [...] Paroxysmal atrial fibrillation (ICD-10 - I48.0) 01/21/2024 watermaster current us e of anticoagulant (ICD-10 - Z79.01) 02/04/2024 Paroxysmal atrial fibrillation (ICD-10 - I48.0) 02/04/2024 correction current us e of anticoagulant (ICD-10 - Z79.01) 02/25/2024 Paroxysmal atrial fibrillation (ICD-10 - I48.0) 02/25/2024 watermaster current us e of anticoagulant (ICD-10 - Z79.01) 03/12/2024 Paroxysmal atrial fibrillation (ICD-10 - I48.0) 04/04/2023 Mixed hyperlipidemia (ICD-10 - E78.2) stable, will continue current regiment 04/04/2023 watermaster current us e of anticoagulant (ICD-10 - [...] Paroxysmal atrial fibrillation (ICD-10 - I48.0) 07/30/2023 correction current us e of anticoagulant therapy (ICD-10 - Z79.01) 12/03/2023 Encounter for curren t long-term use of anticoagulants (ICD-10 - Z79.01) 03/12/2024 correction current us e of anticoagulant (ICD-10 - Z79.01) 04/04/2023 Type 2 diabetes mellitus with diabetic neuropathy (ICD-10 - E11.40) has been doing well on low carb diet, will continue current regiment 10/07/2023 Tubular adenoma (ICD-10 - D36.9) talked about need for colonoscopy 09/30/2023 Acute systolic congestive heart failure (ICD-10 - I50.21) 03/28/2023 watermaster current us e of anticoagulant (ICD-10 - [...] INR 03/12/2024 Next Appt Details Provider Name:Brody reyesr, 04/02/2024 07:30:00 AM, [address] [place] [address], [phone], Provider Name:Brody reyesr, 04/09/2024 09:00:00 AM, [address] [place] [address], [phone], Provider Name:Brody Parikh ier, 10/01/2024 08:00:00 AM, [address] [place] [address], [address], [phone], Provider Name:Brody Parikh ier, 10/08/2024 11:00:00 AM, [address] [place] [address], [phone], Insurance Providers Payer Name Payer Address Payer Phone Subscriber Number Group Number Insured Name Patient Relationship to Insured Coverage Start Date Coverage End Date [employer] [address] [place] [address] [id number] Jayy Rodriguez Self - patient is the insured 3 [employer] [place] [place] [address] [place] [phone] [id number] Jayy Rodriguez Self - patient is the [...]
[2024-03-12 12:27] LABS: INTERNATIONAL NORM RATIO 2.8 (0.9-1.1); Prothrombin Time 32.7 SEC (10.9-12.4)
== END 2024-03-12 12:03 | disposition home or self-care (01) ==
LOC: HO.LNP 12:02
PROVIDERS: Visit Provider Internal Medicine
DX: I48.0 Paroxysmal atrial fibrillation (principal); Z79.01 Long term (current) use of anticoagulants
CPT/HCPCS: 85610

== ENCOUNTER 2024-03-14 07:18 | Outpatient (REF) | payer MEDICARE, SELFPAY ==
[2024-03-14 08:49] LABS: Estimated Average Glucose 160 mg/dL; Hemoglobin A1C 233.6274 umol/L; Hemoglobin A1c % 7.2 % (<6.0); Total Hemoglobin (HGBA1C) 4251.0236 umol/L
[2024-03-14 08:51] LABS: Cholesterol 152 mg/dL (<200); HDL Cholesterol 40 mg/dL (>40); LDL Cholesterol Calculated 71 mg/dL (<100); Triglycerides 207 mg/dL (<150)
== END 2024-03-14 07:19 | disposition home or self-care (01) ==
LOC: HO.LAB 07:18
PROVIDERS: PCP Internal Medicine; Visit Provider Student in an Organized Health Care Education/Training Program
DX: E11.42 Type 2 diabetes mellitus with diabetic polyneuropathy (principal); E11.65 Type 2 diabetes mellitus with hyperglycemia
CPT/HCPCS: 36415; 80061; 83036

== ENCOUNTER 2024-03-16 10:17 | Outpatient (AMB) | payer MEDICARE, SELFPAY ==
--- OUTSIDE RECORDS SUMMARY | 2024-03-16 10:20 | XMS_ITS ---
Author Organization Brody Goldberg MD Address [address] [place] [phone] Care Team Providers Care Sales Utility Representative Name Role Phone Brody Goldberg Primary Care Provider RESULTS Component Value Reference Range Notes Prothrombin Time INR Reviewed date:03/12/2024 12:34:57 PM Interpretation: Performing Lab:[facility], [address] [place] [phone] Notes/Report: Prothrombin Time 32.7 10.9-12.4 SEC INTERNATIONAL NORM RATIO 2.8 0.9-1.1 INTERNATIONAL [...] Brody Goldberg MD [address] [place] [phone] 03/12/2024 Brody Goldberg Paroxysmal atrial fibrillation I48.0 and continuous churn buttermaker current use of anticoagulant Z79.01 ASSESSMENTS Encounter Date Diagnosis Assessment Notes Treatment Notes Treatment Clinical Notes 03/12/2024 Paroxysmal atrial fibrillation (ICD-10 - I48.0) 03/12/2024 continuous churn buttermaker current us e of anticoagulant (ICD-10 - Z79.01) PLAN OF TREATMENT Next Appt Details Provider Name:Brody velarde, 04/02/2024 07:30:00 AM, [address] [place] [address], [address], [place] Rodriguez, [id number], Provider Name:Brody velarde, 04/09/2024 09:00:00 AM, [address] [place] [address], [address], [place] Rodriguez, [phone], Provider Name:Brody velarde, 10/01/2024 08:00:00 AM, [address] [place] [address], [address], [place] Rodriguez, [id number], Provider Name:Brody velarde, 10/08/2024 11:00:00 AM, [address] [place] [address], [address], [place] Rodriguez, [id number],
--- OUTSIDE RECORDS SUMMARY | 2024-03-16 10:20 | XMS_ITS ---
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 Name Role Phone Brody Goldberg Primary Care Provider RESULTS Component Value Reference Range Notes Prothrombin Time INR Reviewed date:02/25/2024 12:31:15 PM Interpretation: Performing Lab:[facility], [address] [place] [phone] Notes/Report: Prothrombin Time 26.0 10.9-12.4 SEC INTERNATIONAL [...] Brody Goldberg MD [address] [place] [address] [phone] 02/25/2024 Brody Goldberg Paroxysmal atrial fibrillation I48.0 and emt 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 current use of anticoagulant Z79.01 ASSESSMENTS Encounter Date Diagnosis Assessment Notes Treatment Notes Treatment Clinical Notes 02/25/2024 Paroxysmal atrial fibrillation (ICD-10 - I48.0) 02/25/2024 emt 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 current us e of anticoagulant (ICD-10 - Z79.01) PLAN OF TREATMENT Next Appt Details Provider Name:Brody velarde, 04/02/2024 07:30:00 AM, [address] [place] [address], [address], [place] Rodriguez, [id number], Provider Name:Brody velarde, 04/09/2024 09:00:00 AM, [address] [place] [address], [address], [place] Rodriguez, [id number], Provider Name:Brody velarde, 10/01/2024 08:00:00 AM, [address] [place] [address], [address], [place] Rodriguez, [phone], Provider Name:Brody velarde, 10/08/2024 11:00:00 AM, [address] [place] [address], [address], [place] Rodriguez, [phone],
--- OUTSIDE RECORDS SUMMARY | 2024-03-16 10:20 | XMS_ITS ---
Author Organization Brody Goldberg MD Address [address] 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 Name Role Phone Brody Goldberg Primary Care Provider ALLERGIES Allergen (clinical drug ingredient) Drug/Non Drug Allergy documented on EMR Reaction Allergy Type Onset Date Status metformin Metformin HCl diarrhea Drug Allergy Act enzo lisinopril Lisinopril couigh Drug Allergy Activ e REASON FOR VISIT 3 WK F/U Encounters Encounter Location Date Provider Diagnosis Brody Goldberg MD [address] [facility] [address] [place] [phone] 02/27/2024 Brody Goldberg PLAN OF TREATMENT Next Appt Details Provider Name:Brody vlearde, 04/02/2024 07:30:00 AM, [address] [place] [address], [address], [phone], Provider Name:Brody velarde, 04/09/2024 09:00:00 AM, [address] [place] [address], [phone], Provider Name:Brody velarde, 10/01/2024 08:00:00 AM, [address] [place] [address], [phone], Provider Name:Brody velarde, 10/08/2024 11:00:00 AM, [address] [place] [address], [address], [place], [place], [phone],
--- OUTSIDE RECORDS SUMMARY | 2024-03-16 10:21 | XMS_ITS | Patient Health Record ---
Author Organization Brody Goldberg MD Address [address] [place], [place] [id number] Care Team Providers Care [employer] Beauty [employer] Manager Name Role Phone Brody Goldberg Primary Care Provider ALLERGIES Allergen (clinical drug ingredient) Drug/Non Drug Allergy documented on EMR Reaction Allergy Type Onset Date Status metformin Metformin HCl diarrhea Drug Allergy Act enzo lisinopril Lisinopril couigh Drug Allergy Activ e RESULTS Component Value Reference Range Notes Nayely Quinn Reviewed date:03/28/2023 12:11:08 PM Interpretation: Performing Lab:[facility], [address] [place] [phone] Notes/Report: Nayely Quinn See Note Specimen held untested for 24 hours; Call to request Chemistry testing. Prothrombin Time INR Reviewed date:03/29/2023 06:17:44 AM Interpretation: Performing Lab:[facility], [address] [place] [phone] Notes/Report: Prothrombin Time 23.7 11.1-13.3 SEC INTERNATIONAL [...] Panel Reviewed date:03/28/2023 05:24:13 PM Interpretation: Performing Lab:[address] [phone] Notes/Report: Bilirubin Total 0.4 0.0-1.0 mg/dL Bilirubin Direct 0.2 0.0-0.5 mg/dL Aspartate Amino Transferase 18 5-37 U/L Alanine Aminotransferase 16 0-40 U/L Total Protein 8.0 6.5-8.0 g/dL Albumin Level 4.5 3.5-5.0 g/dL Alkaline Phosphatase 61 39-117 U/L Glucose Fasting Reviewed date:03/28/2023 05:16:58 PM Interpretation: Performing Lab:[facility], [address] [place] [phone] Notes/Report: Glucose Fasting 149 60-99 mg/dL A fasting glucose of 126 mg/dl or greater on more than one occasion is considered diagnostic of diabetes. Lipid Panel with Reflex Reviewed date:03/28/2023 05:14:36 PM Interpretation: Performing Lab:[address] [phone] Notes/Report: Triglycerides 247 <150 mg/dL Desirable Triglyceride: [...] A1c Reviewed date:03/28/2023 12:14:44 PM Interpretation: Performing Lab:[address] [place] [address] Notes/Report: Hemoglobin A1c % 7.1 <6.0 % [...] average glucose, using the formula of the X1N-Pzbrhth Average Glucose study (ADAG), Diabetes Care, Vol.31,#8, 2007 Prothrombin Time INR Reviewed date:04/04/2023 11:49:49 AM Interpretation: Performing Lab:[address] [phone] Notes/Report: Prothrombin Time 28.3 11.1-13.3 SEC INTERNATIONAL [...] INR Reviewed date:07/02/2023 11:45:41 AM Interpretation: Performing Lab:[facility], [address] [place] [phone] Notes/Report: Prothrombin Time 28.7 11.1-13.3 SEC INTERNATIONAL [...] INR Reviewed date:07/16/2023 12:18:39 PM Interpretation: Performing Lab:[facility], [address] [place] [phone] Notes/Report: Prothrombin Time 27.7 11.1-13.3 SEC INTERNATIONAL [...] Blood Reviewed date:07/23/2023 08:27:13 AM Interpretation: Performing Lab:[facility], [address] [place] [phone] Notes/Report: Glucose, Whole Blood 184 60-115 mg/dL METER #: [id number] Testing performed in the [facility] Grace Gonzalez [facility]. Prothrombin Time INR Reviewed date:07/30/2023 12:41:13 PM Interpretation: Performing Lab:[address] [phone] Notes/Report: Prothrombin Time 27.0 11.1-13.3 SEC INTERNATIONAL [...] INR Reviewed date:08/13/2023 11:38:41 AM Interpretation: Performing Lab:[facility], [address] [place] [phone] Notes/Report: Prothrombin Time 28.5 11.1-13.3 SEC INTERNATIONAL [...] INR Reviewed date:08/27/2023 11:27:23 AM Interpretation: Performing Lab:[facility], [address] [place] [phone] Notes/Report: Prothrombin Time 32.3 11.1-13.3 SEC INTERNATIONAL [...] INR Reviewed date:09/10/2023 12:34:36 PM Interpretation: Performing Lab:[facility], [address] [place] [phone] Notes/Report: Prothrombin Time 34.1 11.1-13.3 SEC INTERNATIONAL [...] INR Reviewed date:09/24/2023 12:56:05 PM Interpretation: Performing Lab:[facility], [address] [place] [phone] Notes/Report: Prothrombin Time 30.7 11.1-13.3 SEC INTERNATIONAL [...] ff Reviewed date:09/30/2023 12:39:19 PM Interpretation: Performing Lab:[facility], [address] [place] [phone] Notes/Report: White Blood Count 8.1 4.8-10.8 X10*3/uL [...] Microscopic Reviewed date:09/30/2023 05:57:39 PM Interpretation: Performing Lab:[facility], [address] [place] [phone] Notes/Report: Color Urine Yellow Appearance Urine Clear PH 6.0 5.0-9.0 Glucose Urine UA Negative Negative mg/dL Urine Blood Negative Negative Specific [place] - Urine 1.020 1.005-1.025 Urine Protein Negative Neg-Trace mg/dL Urine Ketones Negative Negative mg/dL Nitrite Urine Negative Negative Leukocyte Esterase Urine Negative Negative RBC Urine 0-2 0-2 /HPF WBC Urine 0-5 0-5 /HPF Squamous Epithelial Cell Urine 0-2 0-2 /HPF Bacteria Urine None Seen None Seen Hyaline Casts Urine 0-2 0-2 /LPF Comprehensive [place]. Panel Fa st Reviewed date:09/30/2023 06:19:38 PM Interpretation: Performing Lab:[facility], [address] [place] [phone] Notes/Report: Sodium 143 135-145 mmol/L Potassium 4.3 3.3-5.1 mmol/L Chloride 105 96-108 mmol/L Carbon Dioxide 30 22-29 mmol/L Anion Gap 12 12-20 Blood Urea Nitrogen 25 9-16 mg/dL Creatinine 0.91 0.5-1.4 mg/dL Estimated Glomerular Filt Rate > 60 NOTE: For -[place] individuals, multiply the result by 1.210. Chronic [...] Panel Reviewed date:09/30/2023 12:39:39 PM Interpretation: Performing Lab:[facility], [address] [place] [phone] Notes/Report: Triglycerides 198 <150 mg/dL Desirable Triglyceride: [...] (Free>4and<10) Reviewed date:09/30/2023 12:37:03 PM Interpretation: Performing Lab:[address] [phone] Notes/Report: PSA,Total (Free>4and<10) 1.16 0.00-4.00 ng/mL A [...] Random Reviewed date:09/30/2023 12:37:57 PM Interpretation: Performing Lab:[facility], [address] [place] [phone] Notes/Report: Creatinine Urine 135.02 Microalbumin Urine 26.0 Microalbum/Creatinine Ratio Ur 19.2 <30 ug/mg cr Albumin/Creatinine Ratio Reference Ranges: Normal: < 30 ug/mg creatinine Microalbuminuria: 30 - 300 ug/mg creatinine Clinical Albuminuria: > 300 ug/mg creatinine Hemoglobin A1c Reviewed date:09/30/2023 02:07:09 PM Interpretation: Performing Lab:[facility], [address] [place] [phone] Notes/Report: Hemoglobin A1c % 7.2 <6.0 % [...] average glucose, using the formula of the K3U-Crvbjfn Average Glucose study (ADAG), Diabetes Care, Vol.31,#8, Oct. 2007 Glucose, Whole Blood Reviewed date:09/30/2023 06:15:31 PM Interpretation: Performing Lab:[facility], [address] [place] [phone] Notes/Report: Glucose, Whole Blood 144 60-115 mg/dL METER #: [id number] Testing performed in the [facility] Grace Gonzalez [address], [facility]. SLIDE REVIEW Reviewed date:09/30/2023 02:09:35 PM Interpretation: Performing Lab:[facility], [address] [place] [phone] Notes/Report: SLIDE REVIEW VERIFIED Occult Blood, Stool, Guaiac Reviewed date:10/07/2023 11:34:21 AM Interpretation:Negative Performing Lab: Notes/Report: Negative Occult Blood, Stool, Guaiac Neg Prothrombin Time INR Reviewed date:10/07/2023 12:33:09 PM Interpretation: Performing Lab:[facility], [address] [place] [phone] Notes/Report: Prothrombin Time 37.8 11.1-13.3 SEC INTERNATIONAL [...] INR Reviewed date:10/22/2023 12:23:47 PM Interpretation: Performing Lab:[facility], [address] [place] [phone] Notes/Report: Prothrombin Time 37.2 11.1-13.3 SEC INTERNATIONAL [...] INR Reviewed date:11/07/2023 12:43:56 PM Interpretation: Performing Lab:[facility], [address] [place] [phone] Notes/Report: Prothrombin Time 37.5 11.1-13.3 SEC INTERNATIONAL [...] INR Reviewed date:11/19/2023 12:00:58 PM Interpretation: Performing Lab:[facility], [address] [place] [phone] Notes/Report: Prothrombin Time 34.9 11.1-13.3 SEC INTERNATIONAL [...] INR Reviewed date:12/03/2023 12:04:42 PM Interpretation: Performing Lab:[facility], [address] [place] [phone] Notes/Report: Prothrombin Time 23.3 11.1-13.3 SEC INTERNATIONAL [...] INR Reviewed date:12/17/2023 12:24:57 PM Interpretation: Performing Lab:[facility], [address] [place] [phone] Notes/Report: Prothrombin Time 27.8 10.9-12.4 SEC INTERNATIONAL [...] INR Reviewed date:01/02/2024 08:22:51 AM Interpretation: Performing Lab:[facility], [address] [place] [phone] Notes/Report: Prothrombin Time 42.1 10.9-12.4 SEC INTERNATIONAL [...] Blood Reviewed date:01/05/2024 05:02:16 PM Interpretation: Performing Lab:[facility], [address] [place] [phone] Notes/Report: Glucose, Whole Blood 190 60-115 mg/dL METER #: [id number] Testing performed in the [facility] Grace Gonzalez [facility]. Prothrombin Time INR Reviewed date:01/07/2024 01:11:11 PM Interpretation: Performing Lab:[facility], [address] [place] [phone] Notes/Report: Prothrombin Time 31.0 10.9-12.4 SEC INTERNATIONAL [...] INR Reviewed date:01/21/2024 12:49:48 PM Interpretation: Performing Lab:[facility], [address] [place] [phone] Notes/Report: Prothrombin Time 31.9 10.9-12.4 SEC INTERNATIONAL [...] INR Reviewed date:02/17/2024 08:32:12 AM Interpretation: Performing Lab:[address] [phone] Notes/Report: Prothrombin Time 20.5 10.9-12.4 SEC INTERNATIONAL [...] INR Reviewed date:02/25/2024 12:31:15 PM Interpretation: Performing Lab:[facility], [address] [place] [phone] Notes/Report: Prothrombin Time 26.0 10.9-12.4 SEC INTERNATIONAL [...] 2.5 - 3.5 Prothrombin Time INR Reviewed date:03/12/2024 12:34:57 PM Interpretation: Performing Lab:[facility], [address] [place] [phone] Notes/Report: Prothrombin Time 32.7 10.9-12.4 SEC INTERNATIONAL [...] mechanical prosthetic heart valves: 2.5 - 3.5 Lipid Panel (Not yet reviewe d by provider) Interpretation: Performing Lab:[facility], [address] [place] [phone] Notes/Report: Triglycerides 207 <150 mg/dL Desirable Triglyceride: less than 150 mg/dL Borderline High Triglyceride 150-199 mg/dL High Triglyceride: 200-499 mg/dL Very High Triglyceride: greater than or equal to 5OO mg/dL Cholesterol 152 <200 mg/dL Desirable Cholesterol: less than 200 mg/dL Borderline High Cholesterol: 200-239 mg/dL High Cholesterol: greater than 239 mg/dL LDL Cholesterol Calculated 71 <100 mg/dL Desirable LDL: less than 100 mg/dL Near Optimal/Above Optimal LDL: 110-129 mg/dL Borderline High LDL: 130-159 mg/dL High LDL: 160-189 mg/dL Very High LDL: greater than or equal to 190 mg/dL HDL Cholesterol 40 >40 mg/dL Desirable HDL: greater than 40 mg/dL Note: This HDL assay may give artificially low results in patients with liver disease. Hemoglobin A1c Reviewed date:03/15/2024 04:56:43 PM Interpretation: Performing Lab:[facility], [address] [place] [phone] Notes/Report: Hemoglobin A1c % 7.2 <6.0 % [...] average glucose, using the formula of the Q4C-Mekwbkl Average Glucose study (ADAG), Diabetes Care, Vol.31,#8, Oct. 2007 REASON FOR REFERRAL No Information MEDICATIONS Medication SIG (Take, Route, Frequency, Duration) Notes Start Date End Date Status PARoxetine HCl 20 MG TAKE 1 TABLET BY MO [facility] EVERY MORNING for 90 Active Jardiance 25 MG 1 tablet Orally Once a day Not-Taking Vitamin D 50 MCG (1999 UT) 1 capsule Orally Once a day for 30 day(s) Active Diprolene AF 0.05 % 1 application Spanish Speaking Nanny ally Once a day for 30 days 02/23/2019 Not-Takin g FreeStyle Lite Test - USE TO TEST BLOOD SUGAR ONCE DAILY for 50 Active diazePAM 5 MG (Schedule IV Drug) T KVNG ONE TABLET BY MOUTH EVERY 6 HOURS NEEDED FOR MUSCLE SPASM Oral for 3 Not-Taking Mupirocin 2 % 1 application Spanish Speaking Nanny ally Twice a day for 5 day(s) 03/28/2021 Active Januvia 50 MG as directed Orally O nce a day for 30 days 06/10/2017 Not-Taking Atenolol 50 MG TAKE 2 TABLETS BY MO UTH TWICE DAILY for 90 Active Onglyza 5 [...] Code Notes Problem Thrombocytopenia (D69.6) Active confirmed 275662882 Problem Tubular adenoma (D36.9) Active confirmed 480561663 Problem Nevus (D22.9) Active confirmed 23997234 Problem Mixed hyperlipidemia (E78.2) Active confirmed Mixed hyperlipidemia (487031301) Problem Paroxysmal atrial fibrillation (I48.0) Active confirmed Paroxysmal atri al fibrillation (481795881) Problem Primary insomnia (F51.01) Active confirmed 7733868 Problem Lumbar disc disease (M51.9) Active confirmed 79849795 Problem Essential hypertension (I10) Active confirmed 44918707 Problem medical terminologist current use of anticoagulant (Z79.01) Active confirmed Long-term curre nt use of anticoagulant (518186193) Problem medical terminologist current use of anticoagulant therapy (Z79.01) Active confirmed Long-term c urrent use of anticoagulant (542580585) Problem Type 2 diabetes mellitus with 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) Active confirmed 09683528 Problem Acute systolic congestive heart failure (I50.21) Active confirmed 461302319 Problem Pressure sore (L89.90) Active confirmed Pressure injury (morphologic abnormality) (9833853049) Problem Encounter for current long-term use of anticoagulants (Z79.01) Active confirmed Long-term curre nt use of anticoagulant (006232683) Problem Abnormal platelets (D69.1) Active confirmed 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) Problem Temporary low platelet count (D69.6) Active confirmed 346663158 Problem 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 808951053 Problem 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) Active confirmed 52609013 Problem Pressure injury of sacral region, unstageable (L89.150) Active confirmed 02113564894641581 VITAL SIGNS Blood pressure diastolic 64 mm [...] Brody Goldberg MD [address] [place] [id number] 10/07/2023 Brody Goldberg Paroxysmal atrial fibrillation I48.0 ; medical terminologist current use of anticoagulant Z79.01 ; 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 ; Tubular adenoma D36.9 ; Mixed hyperlipidemia E78.2 ; Essential hypertension I10 ; Acute systolic congestive heart failure I50.21 ; Colon cancer screening Z12.11 and Encounter for screening for depression Z13.31 Brody Goldberg MD [address] [place] [id number] 09/30/2023 Brody Goldberg Mixed hyperlipidemia E78.2 ; 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 ; Thrombocytopenia D69.6 and Acute systolic congestive heart failure I50.21 Brody Goldberg MD [address] [place] [id number] 03/28/2023 Brody Goldberg 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 ; Mixed hyperlipidemia E78.2 ; Paroxysmal atrial fibrillation I48.0 and medical terminologist current use of anticoagulant Z79.01 Brody Goldberg MD [address] [place] [id number] 04/04/2023 Brody Goldberg Paroxysmal atrial fibrillation I48.0 and Encounter for current long-term use of anticoagulants Z79.01 Brody Goldberg MD [address] [place] [address] [id number] 07/02/2023 Brody Goldberg Paroxysmal atrial fibrillation I48.0 and Encounter for current long-term use of anticoagulants Z79.01 Brody Goldberg MD [address] [id number] 07/16/2023 Brody Goldberg Encounter for curren t long-term use of anticoagulants Z79.01 Brody Goldberg MD [address] [id number] 07/30/2023 Brody Goldberg Paroxysmal atrial fibrillation I48.0 ; Encounter for current long-term use of anticoagulants Z79.01 and medical terminologist current use of anticoagulant therapy Z79.01 Brody Goldberg MD [address] [place] [id number] 08/13/2023 Brody Bombardier Paroxysmal atrial fibrillation I48.0 and Encounter for current long-term use of anticoagulants Z79.01 Brody Goldberg MD [address] [place] [address] [id number] 08/27/2023 Brody Bombardier Paroxysmal atrial fibrillation I48.0 and care home current use of anticoagulant Z79.01 Brody Goldberg MD [address] [place] [address] [id number] 09/10/2023 Brody Bombardier Paroxysmal atrial fibrillation I48.0 and care home current use of anticoagulant Z79.01 Brody Goldberg MD [address] [place] [address] [id number] 09/24/2023 Brody Bombardier Paroxysmal atrial fibrillation I48.0 and medical terminologist current use of anticoagulant Z79.01 Brody Goldberg MD [address] [place] [address] [id number] 10/22/2023 Brody Bombardier Paroxysmal atrial fibrillation I48.0 and medical terminologist current use of anticoagulant Z79.01 Brody Goldberg MD [address] [place] [id number] 11/07/2023 Brody Bombardier Paroxysmal atrial fibrillation I48.0 and Encounter for current long-term use of anticoagulants Z79.01 Brody Goldberg MD [address] [place] [id number] 11/19/2023 Brody Bombardier Paroxysmal atrial fibrillation I48.0 and Encounter for current long-term use of anticoagulants Z79.01 Brody Goldberg MD [address] [place] [address] [id number] 12/03/2023 Brody Bombardier Paroxysmal atrial fibrillation I48.0 ; Encounter for immunization Z23 and Encounter for current long-term use of anticoagulants Z79.01 Brody Goldberg MD [address] [place] [address] [id number] 12/17/2023 Brody Bombardier Paroxysmal atrial fibrillation I48.0 and Encounter for current long-term use of anticoagulants Z79.01 Brody Goldberg MD [address] [place] [address] [id number] 12/31/2023 Brody Bombardier Paroxysmal atrial fibrillation I48.0 and Encounter for current long-term use of anticoagulants Z79.01 Brody Goldberg MD [address] [place] [address] [id number] 01/07/2024 Brody Bombardier Paroxysmal atrial fibrillation I48.0 and Encounter for current long-term use of anticoagulants Z79.01 Brody Goldberg MD [address] [place] [address] [id number] 01/21/2024 Brody Bombardier Paroxysmal atrial fibrillation I48.0 and medical terminologist current use of anticoagulant Z79.01 Brody Goldberg MD [address] [place] [id number] 02/04/2024 Brody Bombardier Paroxysmal atrial fibrillation I48.0 and care home current use of anticoagulant Z79.01 Brody Goldberg MD [address] [place] [address] [id number] 02/25/2024 Brody Bombardier Paroxysmal atrial fibrillation I48.0 and care home current use of anticoagulant Z79.01 Brody Goldberg MD [address] [place] [address] [id number] 03/12/2024 Brody Mirianardivikki Paroxysmal atrial fibrillation I48.0 and medical terminologist current use of anticoagulant Z79.01 Brody Goldberg MD [address] [place] [address] [id number] 04/04/2023 Brody Goldberg care home current us e of anticoagulant Z79.01 ; Mixed hyperlipidemia E78.2 and 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 Brody Goldberg MD [address] [place] [address] [id number] 02/27/2024 Brody Goldberg MD [address] [place] [address] [id number] 04/15/2023 Brody Goldberg COVID-19 U07.1 Brody Goldberg MD [address] [place] [address] [id number] 05/13/2023 Brody Goldberg MD [address] [place] [address] [id number] 05/18/2023 Brody Goldberg MD [address] [place] [address] [id number] 06/25/2023 Brody Goldberg MD [address] [place] [address] [id number] 11/05/2023 Brody Goldberg MD [address] [place] [address] [id number] 02/25/2024 Brody Goldberg ASSESSMENTS Encounter Date Diagnosis Assessment Notes Treatment Notes Treatment Clinical Notes 10/07/2023 Paroxysmal atrial fibrillation (ICD-10 - I48.0) not having any problems, will continue current regiment 10/07/2023 medical terminologist current us e of anticoagulant (ICD-10 - Z79.01) stable, will continue current regiment 09/30/2023 Mixed hyperlipidemia (ICD-10 - E78.2) 09/30/2023 Type 2 diabetes mellitus with diabetic neuropathy (ICD-10 - E11.40) 03/28/2023 Mixed hyperlipidemia (ICD-10 - E78.2) 03/28/2023 Type 2 diabetes mellitus with diabetic neuropathy (ICD-10 - E11.40) 04/04/2023 Paroxysmal atrial fibrillation (ICD-10 - I48.0) [...] Paroxysmal atrial fibrillation (ICD-10 - I48.0) 08/27/2023 medical terminologist current us e of anticoagulant (ICD-10 - Z79.01) 09/10/2023 Paroxysmal atrial fibrillation (ICD-10 - I48.0) 09/10/2023 care home current us e of anticoagulant (ICD-10 - Z79.01) 09/24/2023 Paroxysmal atrial fibrillation (ICD-10 - I48.0) 09/24/2023 medical terminologist current us e of anticoagulant (ICD-10 - Z79.01) 10/22/2023 Paroxysmal atrial fibrillation (ICD-10 - I48.0) 10/22/2023 care home current us e of anticoagulant (ICD-10 - [...] Paroxysmal atrial fibrillation (ICD-10 - I48.0) 01/21/2024 medical terminologist current us e of anticoagulant (ICD-10 - Z79.01) 02/04/2024 Paroxysmal atrial fibrillation (ICD-10 - I48.0) 02/04/2024 medical terminologist current us e of anticoagulant (ICD-10 - Z79.01) 02/25/2024 Paroxysmal atrial fibrillation (ICD-10 - I48.0) 02/25/2024 medical terminologist current us e of anticoagulant (ICD-10 - Z79.01) 03/12/2024 Paroxysmal atrial fibrillation (ICD-10 - I48.0) 03/12/2024 care home current us e of anticoagulant (ICD-10 - Z79.01) 04/04/2023 Mixed hyperlipidemia (ICD-10 - E78.2) stable, will continue current regiment 04/04/2023 care home current us e of anticoagulant (ICD-10 - [...] Paroxysmal atrial fibrillation (ICD-10 - I48.0) 07/30/2023 care home current us e of anticoagulant therapy (ICD-10 [...] congestive heart failure (ICD-10 - I50.21) 03/28/2023 care home current us e of anticoagulant (ICD-10 - [...] Order Date CT SINUS W&WO CONTRAST 12/08/2012 Lipid Panel 03/14/2024 Next Appt Details Provider Name:Brody Parikh ier, 04/02/2024 07:30:00 AM, [address] [place] [address], [address], [place], [place], [phone], Provider Name:Brody Parikh ier, 04/09/2024 09:00:00 AM, [address] [place] [address], [address], [place], [place], [phone], Provider Name:Brody Parikh ier, 10/01/2024 08:00:00 AM, [address] [place] [address], Suite [facility], [place], [place], [phone], Provider Name:Brody Parikh ier, 10/08/2024 11:00:00 AM, [address] [place] [address], Suite [facility], [place], [place], [phone], Insurance Providers Payer Name Payer Address Payer Phone Subscriber Number Group Number Insured Name Patient Relationship to Insured Coverage Start Date Coverage End Date MEDICARE [address] [place] [address] [id number] Jayy Rodriguez Self - patient is the insured 3 MEDEX BCBS OF [facility] [address] [place] [phone] [id number] Jayy Rodriguez Self - patient is the [...]
[2024-03-16 10:23] VITALS: BP 136/64; PULSE 65; BMI 32.3
--- NOTE | 2024-03-16 10:23 | MHC.OFFVIS ---
Vital Signs 03/16/24 10:23 Height 6 ft 2 in Weight 251 lb 15.814 oz BMI 32.3 BP 136/64 Blood Pressure Location Lt brachial Position Sitting Pulse 65 Pulse Source Pulse Oximeter Intake Visit Reasons: DM Intake Note: Patient present today for Type 2 Diabetes Mellitus. 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: No Accompanied by: Spouse Allergies lisinopril Adverse Reaction (Verified 03/16/24 10:29) Cough metformin Adverse Reaction (Verified 03/16/24 10:29) Diarrhea Medication List - Last Reconciled 03/16/24 by Beatris Patrick MD acetaminophen ER (Tylenol Arthritis Pain) 650 mg PO Q12H PRN 30 days atenolol 75 mg PO BID atorvastatin 40 mg PO BEDTIME blood sugar diagnostic (FreeStyle Lite Strips) 4 times a day; blood-glucose meter (FreeStyle Lite Meter kit) As directed blood-glucose meter,continuous (FreeStyle Lindsey 3 [place]) As directed blood-glucose meter,continuous (FreeStyle Lindsey 3 [place]) As directed blood-glucose sensor (FreeStyle Lindsey 3 Sensor device) As directed every 14 days blood-glucose sensor (FreeStyle Lindsey 3 Sensor device) As directed every 14 days cholecalciferol (vitamin D3) 50 mcg PO DAILY 30 days clotrimazole-betamethasone 1-0.05 % appl topical finasteride 5 mg PO DAILY flash glucose scanning reader (FreeStyle Lindsey 14 Day [place]) As directed flash glucose sensor (FreeStyle Lindsey 14 Day Sensor kit) Once every 14 days flu vacc [id number](65yr up)-PF mL IM furosemide 20 mg PO DAILY insulin glargine (Basaglar KwikPen U-100 Insulin) 28 units (0.28 mL) subcut DAILY insulin lispro (Humalog KwikPen (U-100) Insulin) inject 8 units with breakfast, inject 8 units with lunch, inject 12 units with supper lancets (FreeStyle Lancets) 4x daily losartan-hydrochlorothiazide 100-25 mg 1 tab PO DAILY nirmatrelvir-ritonavir 150-100 mg (Paxlovid) PO PER PKG DIR - Take 1 tablet of each med (150 mg + 100 mg) BID x 5 days paroxetine HCl 20 mg PO QAM pen needle, diabetic (BD Ultra-Fine Micro Pen Needle) once daily with insulin pen needle, diabetic (BD Ultra-Fine Micro Pen Needle) 3 tmes daily pen needle, diabetic (Pen Needle) 4x daily pen needle, diabetic (BD Hui 2nd Gen Pen Needle) 4 times daily warfarin 7 mg PO DAILY warfarin 0 mg PO HPI Comments Details: 78 YO Male with PMHx T2DM, HTN, HLD and pancreatitis who is seen in F/U for T2DM. Last visit 01/03/2024 No interval emergency room visits or hospitalizarions Initially diagnosed with T2DM in 2007. Prior meds Was initially started on treatment with Metformin, but was unable to tolerate this due to GI distress. He trialed Januvia as well as Farxiga, Jardiance and Invokana, but stopped these as they were ineffective. He has a history of gallstone pancreatitis 10 yrs ago , and GLP-1 is contraindicated. Current regimen Basaglar 26 units qHS and Humalog units with 8 BF and lunch , 10 pre dinner Random POC today: 170 mg/dL A1c 03/14/24: 7.2 % A1c 01/03/2024: POC 8.4% A1c 09/30/2023: 7 . 5% Bought a treadmill 30 mins every other day . Currently using the [employer] Lindsey CGM. [facility] . Continuous glucose sensor Interpretation : Much improved glucose readings,Glucose compared visit, continues to have some high numbers and fasting time as well as post dinner No hypoglycemic episodes noted. Average glucose : 168 Standard deviation: 20.2% % readings above target: 30% % readings in hypoglycemic range: 0% % readings in target: 70% GMI 7. 3% Denies a Family History of T2DM. Has eyes checked yearly, last eye exam - last appt 9 mos ago . No retinopathy. Has neuropathy, does not see podiatry. Foot exam completed 09/2023 Has nephropathy, on Losartan 100 mg PO daily. UAC 19.2, 09/2023 Has HLD. On Pravastatin 20 mg PO daily. Last LDL 89 , 10/08. Developed myalgias with Rosuvastatin 10 mg PO daily, stopped this on 07/04/2020. Denies CAD. or stroke Diet: Has completely cut out sugars and is counting carbohydrate. However he does have a lot of red meat and high fatty foods in his diet, breakfast is hinojosa with eggs. Screen for liver fibrosis: Fibrosis 4 index 2.85 points calculated 01/03/2024, pending GI evaluation, appt in 07/13/24 Weight: 01/03/24: Gained 20 lbs since 1 years from 240 to 257 since 202203/16/24: lost 6 lbs since last visit now 251 lbs Seen nutrition and CDE. Physical exam General: sitting comfortably in no acute distress HEENT: normocephalic/atraumatic, , moist oral mucosa Neck: supple, symmetrical, no thyromegaly , no dorsocervical or supraclavicular fat pads Cardiac: normal heart sounds Pulm: normal breath sounds B/L, no added breath sounds Abd: not distended, no tenderness Extremities: no edema, no signs of myxedema Neuro: AAO x3, Speech: normal, no facial droop, moving all 4 extremities Foot exam : Patient deferred today due to wearing compression stockings that are difficult to take off Hgb A1c (Clinic) 8.4 % (4.0-6.0) H 01/03/24 08:03 Laboratory Tests 09/30/23 07:15 Creatinine 0.91 Estimated GFR > 60 Hemoglobin A1c % 7.2 H Triglycerides 198 H Cholesterol 170 LDL Cholesterol, Calc 89 HDL Cholesterol 42 Microalb/Creat Ratio 19.2 Laboratory Tests 01/03/24 03/14/24 08:03 07:41 Estimat Average Glucose 160 Hgb A1c (Clinic) 8.4 H Hemoglobin A1c % 7.2 H Triglycerides 207 H Cholesterol 152 LDL Cholesterol, Calc 71 HDL Cholesterol 40 L [facility] Medical History (Updated 03/16/24 @ 11:00 by Beatris Patrick MD) Type 2 diabetes mellitus Obesity (BMI 30.0-34.9) Metabolic dysfunction-associated steatotic liver disease (MASLD) Vitamin D deficiency Pancreatitis Afib Lower extremity edema HLD (hyperlipidemia) HTN (hypertension) Surgical History (Updated 03/16/24 @ 10:33 by DAVIN Almaraz) History of Mohs surgery for squamous cell carcinoma of skin Hx of sinus surgery Previous back surgery History of cholecystectomy Family History Father No problems noted. Mother No problems noted. Social History Alcohol intake: never Patient Tobacco Use Status: Never used Tobacco Current occupational status: unemployed Physical Exam Vital Signs: Last Vital Signs Pulse 65 03/16/24 10:23 BP 136/64 03/16/24 10:23 BMI result Body Mass Index 32.3 Office Procedures Glucose Monitoring Details Details: see [facility] [id number] - Glucose monitoring, continuous-physician I&R Procedure code (CPT) selection complete Results Reviewed Results Reviewed: Laboratory Last Values Glucose (Clinic) 170 mg/dL (60-115) H 03/16/24 10:31 Assessment & Plan Assessment & Plan (1) Type 2 diabetes mellitus: Code(s): E11.9 - Type 2 diabetes mellitus without complications Category: Medical Qualifiers: Diabetes mellitus nursing home insulin use: with business travel consultant use Diabetes mellitus complication status: with neurologic complications Diabetes mellitus complication detail: with polyneuropathy Qualified Code(s): E11.42 - Type 2 diabetes mellitus with diabetic polyneuropathy; Z79.4 - cell reliner (current) use of insulin Plan: Patient with a history of type 2 diabetes mellitus diagnosed 2007, who is now insulin dependent with complications of peripheral neuropathy. A1c from 03/06/2024 significantly improved to 7.2% from 8.4% in December 2023. Patient endorses adherence to his insulin and he is taking his postprandial insulin 15 minutes before meals. He has significantly work done his exercise and dietary improvements in the lifestyle modification has clearly been working. I encouraged him to continue these changes. We reviewed his CGM data, he is in target range 70% of the time. Goal is greater than 70, he is still having some highs around fasting time as well as post dinner. Plan: -increase Basaglar from 26 to 28 units daily. -continue Humalog to 8 prior to breakfast and lunch and increase to 12 units from 10 units prior to dinner -?Diet control and healthy lifestyle was discussed in detail. Emphasis was made on exercise and physical activity in daily routine with at least 30-45 minutes of aerobic exercise 5-6 days a week. E: Last visit with emr implementation specialist was on []April 2023. No diabetic retinopathy. F: Foot care: Does not follow up with rv servicer but checks foot daily G: eGFR greater than 60 and microalbumin/Cr ratio 19.2 from September 2023, continue losartan 100 mg daily Follow up in 3 months (2) Metabolic dysfunction-associated steatotic liver disease (MASLD): Code(s): K76.0 - Fatty (change of) liver, not elsewhere classified Category: Medical Plan: Fibrosis for index score 2.85 calculated 01/03/2024. Concerning for advanced fibrosis. -he is not a candidate for GLP 1 agonist due to past history of pancreatitis Plan: -advised 30 minutes of walking daily -counseled on dietary modification with the elimination of hi fatty foods and incorporating more whole grains in diet -pending GI evaluation, appointment booked for next year (3) HLD (hyperlipidemia): Code(s): E78.5 - Hyperlipidemia, unspecified Category: Medical Qualifiers: Hyperlipidemia type: unspecified Qualified Code(s): E78.5 - Hyperlipidemia, unspecified Plan: LDL at 71 mg/dL from 03/14/24, after switching to atorvastatin from pravastatin in December 2023 He did not react well to rosuvastatin. Plan: -LDL goal less than 70 mg/dL -continue atorvastatin 40 mg daily (4) HTN (hypertension): Code(s): I10 - Essential (primary) hypertension Category: Medical Qualifiers: Hypertension type: unspecified Qualified Code(s): I10 - Essential (primary) hypertension Plan: Blood pressure within goal. Continue losartan 100 mg daily (5) Obesity (BMI 30.0-34.9): Code(s): E66.811 - Obesity, class 1 Category: Medical Plan: BMI 32.4 kg per m2. He has gained 20 lb since 2022. Now has started exercising and doing 30 minutes of treadmill every other day. Lost 6 lb since last visit. Lifestyle modification advised with incorporating more whole grains, avoiding red meat, avoiding fatty foods Advised about continuing incorporating 30 minutes of walking daily or 4-5000 steps at least Plan I spent 30 minutes in reviewing the record, seeing the patient and documenting in the medical record. Orders: Orders AMB Glucose Monitoring Today E11.42 - Type 2 diabetes mellitus with diabetic polyneuropathy, E11.65 - Type 2 diabetes mellitus with hyperglycemia Medications: Changed From insulin glargine (Basaglar KwikPen U-100 Insulin) 24 units (0.24 mL) subcut DAILY 30 mL 4RF E11.65 - Type 2 diabetes mellitus with hyperglycemia To insulin glargine (Basaglar KwikPen U-100 Insulin) 28 units (0.28 mL) subcut DAILY 30 mL 4RF E11.65 - Type 2 diabetes mellitus with hyperglycemia From insulin lispro (Humalog KwikPen (U-100) Insulin) inject 8 units with breakfast, inject 8 units with lunch, inject 10 units with supper 15 mL 5RF E11.65 - Type 2 diabetes mellitus with hyperglycemia To insulin lispro (Humalog KwikPen (U-100) Insulin) inject 8 units with breakfast, inject 8 units with lunch, inject 12 units with supper 15 mL 5RF E11.65 - Type 2 diabetes mellitus with hyperglycemia Patient Instructions: Increase basagalar to 28 units at bedtime Increase humalog to 12 units pre dinner , keep breakfast and lunch at 8 units Rule of 15 Treatment for Hypoglycemia (Low blood sugar) If your blood glucose is low (70 and below)*, follow the steps below to treat: Eat or drink something from the list below equal to 15 grams of carbohydrate (carb). Rest for 15 minutes Re-check your blood glucose. If it is still low, (below 70), repeat step 1 above. ? If your next meal is more than an hour away, you will need to eat one carbohydrate choice as a snack to keep your blood glucose from going low again. ?If you can't figure out why you have low blood glucose, call your healthcare provider, as your medicine may need to be adjusted. ?Always carry something with you to treat an insulin reaction. Use food from the list below. ? Foods equal to One Carbohydrate Choice (15 grams of carbohydrate): 3 Glucose ?tablets or 4 Dextrose tablets 4 ounces of fruit juice 5-6 ounces (about 1/2 can) of regular soda such as Coke or Pepsi ? 7-8 gummy or regular Life Savers ? 1 Tbsp. of sugar or jelly NOTE: If your blood sugar is less than 50, double the portion above for a total of 30 gm. ?Carbohydrate. ? Follow meal plan of 45-60 g of consistent carbohydrates at 3 meals each day and 15 g of carbohydrate at 1-2 snacks each day. Coding Level of Care Code Est Pt Level 4 (05626) Diagnoses Type 2 diabetes mellitus with diabetic polyneuropathy, with long-term current use of insulin E11.42; Z79.4 Diabetes mellitus nursing home insulin use: with nursing home use Diabetes mellitus complication status: with neurologic complications Diabetes mellitus complication detail: with polyneuropathy Metabolic dysfunction-associated steatotic liver disease (MASLD) K76.0 Hyperlipidemia, unspecified hyperlipidemia type E78.5 Hyperlipidemia type: unspecified Hypertension, unspecified type I10 Hypertension type: unspecified Obesity (BMI 30.0-34.9) E66.811 CPT Codes Details - CPT: 11855 - Glucose monitoring, continuous-physician I&R ([id number]) Time Spent (min) 30
[2024-03-16 10:34] LABS: Glucose, Whole Blood 170 mg/dL (60-115)
== END 2024-03-16 10:57 | disposition home or self-care (01) ==
PROVIDERS: PCP Internal Medicine; Visit Provider Student in an Organized Health Care Education/Training Program
DX: E11.42 Type 2 diabetes mellitus with diabetic polyneuropathy (principal); Z79.4 Long term (current) use of insulin; K76.0 Fatty (change of) liver, not elsewhere classified; E78.5 Hyperlipidemia, unspecified; I10 Essential (primary) hypertension; E66.811 Obesity, class 1
CPT/HCPCS: 95251; 99214

== ENCOUNTER → 2024-03-16 10:17 | Outpatient (BNVA) | payer MEDICARE, SELFPAY | PROVIDERS: PCP Internal Medicine; Visit Provider Student in an Organized Health Care Education/Training Program | DX: E11.42 Type 2 diabetes mellitus with diabetic polyneuropathy (principal); K76.0 Fatty (change of) liver, not elsewhere classified; I10 Essential (primary) hypertension; E78.5 Hyperlipidemia, unspecified; E66.811 Obesity, class 1; Z68.32 Body mass index [BMI] 32.0-32.9, adult; Z79.4 Long term (current) use of insulin | CPT/HCPCS: 82947; 99212 ==

== ENCOUNTER 2024-03-24 10:49 | Outpatient (REF) | payer MEDICARE, SELFPAY ==
[2024-03-24 11:17] LABS: INTERNATIONAL NORM RATIO 2.2 (0.9-1.1); Prothrombin Time 25.6 SEC (10.9-12.4)
--- OUTSIDE RECORDS SUMMARY | 2024-03-24 12:06 | XMS_ITS ---
Author Organization Brody Goldberg MD Address [address] [facility] [address] [place] [phone] Care Team Providers Care [employer] Strip Gauger Name Role Phone Brody Goldberg Primary Care Provider REASON FOR VISIT RF MEDICATIONS Medication SIG (Take, Route, Frequency, Duration) Notes Start Date End Date Status Mupirocin 2 % 1 application Solid Waste Truck Driver ally Twice a day for 5 day(s) 03/28/2021 Active Encounters Encounter Location Date Provider Diagnosis Brody Goldberg MD [address] [place] [phone] 03/24/2024 Brody Goldberg Pressure sore L89.90 ASSESSMENTS Encounter Date Diagnosis Assessment Notes Treatment Notes Treatment Clinical Notes 03/24/2024 Pressure sore (ICD-10 - L89.90) PLAN OF TREATMENT Medication Medication Name Sig Start Date Stop Date Notes Mupirocin 2 % 1 application Solid Waste Truck Driver ally Twice a day for 5 day(s) 03/28/2021 Next Appt Details Provider Name:Brody velarde, 04/02/2024 07:30:00 AM, [address] [place] [address], [address], [phone], Provider Name:Brody velarde, 04/09/2024 09:00:00 AM, [address] [place] [address], [address], [phone], Provider Name:Brody velarde, 10/01/2024 08:00:00 AM, [address] [facility], [address], [place], [phone], Provider Name:Brody velarde, 10/08/2024 11:00:00 AM, [address] [facility], [address], [place], [phone],
--- OUTSIDE RECORDS SUMMARY | 2024-03-24 12:06 | XMS_ITS | Patient Health Record ---
Author Organization Brody Goldberg MD Address [address] [place], [place] [id number] Care Team Providers Care Waterproofing Mixer Name Role Phone Brody Goldberg Primary Care Provider ALLERGIES Allergen (clinical drug ingredient) Drug/Non Drug Allergy documented on EMR Reaction Allergy Type Onset Date Status metformin Metformin HCl diarrhea Drug Allergy Act enzo lisinopril Lisinopril couigh Drug Allergy Activ e RESULTS Component Value Reference Range Notes Nayely Quinn Reviewed date:03/28/2023 12:11:08 PM Interpretation: Performing Lab:[facility], [address] [place] [phone] Notes/Report: Nayely Quinn See Note Specimen held untested for 24 hours; Call to request Chemistry testing. Prothrombin Time INR Reviewed date:03/29/2023 06:17:44 AM Interpretation: Performing Lab:[facility], [address] [place] [phone] Notes/Report: Prothrombin Time 23.7 11.1-13.3 SEC INTERNATIONAL [...] Panel Reviewed date:03/28/2023 05:24:13 PM Interpretation: Performing Lab:[address] [phone] Notes/Report: Bilirubin Total 0.4 0.0-1.0 mg/dL Bilirubin Direct 0.2 0.0-0.5 mg/dL Aspartate Amino Transferase 18 5-37 U/L Alanine Aminotransferase 16 0-40 U/L Total Protein 8.0 6.5-8.0 g/dL Albumin Level 4.5 3.5-5.0 g/dL Alkaline Phosphatase 61 39-117 U/L Glucose Fasting Reviewed date:03/28/2023 05:16:58 PM Interpretation: Performing Lab:[facility], [address] [place] [phone] Notes/Report: Glucose Fasting 149 60-99 mg/dL A fasting glucose of 126 mg/dl or greater on more than one occasion is considered diagnostic of diabetes. Lipid Panel with Reflex Reviewed date:03/28/2023 05:14:36 PM Interpretation: Performing Lab:[address] [phone] Notes/Report: Triglycerides 247 <150 mg/dL Desirable Triglyceride: [...] A1c Reviewed date:03/28/2023 12:14:44 PM Interpretation: Performing Lab:[address] [place] [address] Notes/Report: Hemoglobin A1c % 7.1 <6.0 % [...] average glucose, using the formula of the X4X-Oncngyy Average Glucose study (ADAG), Diabetes Care, Vol.31,#8, 2007 Prothrombin Time INR Reviewed date:04/04/2023 11:49:49 AM Interpretation: Performing Lab:[address] [phone] Notes/Report: Prothrombin Time 28.3 11.1-13.3 SEC INTERNATIONAL [...] INR Reviewed date:07/02/2023 11:45:41 AM Interpretation: Performing Lab:[facility], [address] [place] [phone] Notes/Report: Prothrombin Time 28.7 11.1-13.3 SEC INTERNATIONAL [...] INR Reviewed date:07/16/2023 12:18:39 PM Interpretation: Performing Lab:[facility], [address] [place] [phone] Notes/Report: Prothrombin Time 27.7 11.1-13.3 SEC INTERNATIONAL [...] Blood Reviewed date:07/23/2023 08:27:13 AM Interpretation: Performing Lab:[facility], [address] [place] [phone] Notes/Report: Glucose, Whole Blood 184 60-115 mg/dL METER #: [id number] Testing performed in the [facility] Grace Gonzalez [facility]. Prothrombin Time INR Reviewed date:07/30/2023 12:41:13 PM Interpretation: Performing Lab:[address] [phone] Notes/Report: Prothrombin Time 27.0 11.1-13.3 SEC INTERNATIONAL [...] INR Reviewed date:08/13/2023 11:38:41 AM Interpretation: Performing Lab:[facility], [address] [place] [phone] Notes/Report: Prothrombin Time 28.5 11.1-13.3 SEC INTERNATIONAL [...] INR Reviewed date:08/27/2023 11:27:23 AM Interpretation: Performing Lab:[facility], [address] [place] [phone] Notes/Report: Prothrombin Time 32.3 11.1-13.3 SEC INTERNATIONAL [...] INR Reviewed date:09/10/2023 12:34:36 PM Interpretation: Performing Lab:[facility], [address] [place] [phone] Notes/Report: Prothrombin Time 34.1 11.1-13.3 SEC INTERNATIONAL [...] INR Reviewed date:09/24/2023 12:56:05 PM Interpretation: Performing Lab:[facility], [address] [place] [phone] Notes/Report: Prothrombin Time 30.7 11.1-13.3 SEC INTERNATIONAL [...] ff Reviewed date:09/30/2023 12:39:19 PM Interpretation: Performing Lab:[facility], [address] [place] [phone] Notes/Report: White Blood Count 8.1 4.8-10.8 X10*3/uL [...] Microscopic Reviewed date:09/30/2023 05:57:39 PM Interpretation: Performing Lab:[facility], [address] [place] [phone] Notes/Report: Color Urine Yellow Appearance Urine Clear PH 6.0 5.0-9.0 Glucose Urine UA Negative Negative mg/dL Urine Blood Negative Negative Specific Holt - Urine 1.020 1.005-1.025 Urine Protein Negative Neg-Trace mg/dL Urine Ketones Negative Negative mg/dL Nitrite Urine Negative Negative Leukocyte Esterase Urine Negative Negative RBC Urine 0-2 0-2 /HPF WBC Urine 0-5 0-5 /HPF Squamous Epithelial Cell Urine 0-2 0-2 /HPF Bacteria Urine None Seen None Seen Hyaline Casts Urine 0-2 0-2 /LPF Comprehensive [place]. Panel Fa st Reviewed date:09/30/2023 06:19:38 PM Interpretation: Performing Lab:[facility], [address] [place] [phone] Notes/Report: Sodium 143 135-145 mmol/L Potassium 4.3 3.3-5.1 mmol/L Chloride 105 96-108 mmol/L Carbon Dioxide 30 22-29 mmol/L Anion Gap 12 12-20 Blood Urea Nitrogen 25 9-16 mg/dL Creatinine 0.91 0.5-1.4 mg/dL Estimated Glomerular Filt Rate > 60 NOTE: For -Monegasque individuals, multiply the result by 1.210. Chronic [...] Panel Reviewed date:09/30/2023 12:39:39 PM Interpretation: Performing Lab:[facility], [address] [place] [phone] Notes/Report: Triglycerides 198 <150 mg/dL Desirable Triglyceride: [...] (Free>4and<10) Reviewed date:09/30/2023 12:37:03 PM Interpretation: Performing Lab:[address] [phone] Notes/Report: PSA,Total (Free>4and<10) 1.16 0.00-4.00 ng/mL A [...] Random Reviewed date:09/30/2023 12:37:57 PM Interpretation: Performing Lab:[facility], [address] [place] [phone] Notes/Report: Creatinine Urine 135.02 Microalbumin Urine 26.0 Microalbum/Creatinine Ratio Ur 19.2 <30 ug/mg cr Albumin/Creatinine Ratio Reference Ranges: Normal: < 30 ug/mg creatinine Microalbuminuria: 30 - 300 ug/mg creatinine Clinical Albuminuria: > 300 ug/mg creatinine Hemoglobin A1c Reviewed date:09/30/2023 02:07:09 PM Interpretation: Performing Lab:[facility], [address] [place] [phone] Notes/Report: Hemoglobin A1c % 7.2 <6.0 % [...] average glucose, using the formula of the V8U-Ppikode Average Glucose study (ADAG), Diabetes Care, Vol.31,#8, Oct. 2007 Glucose, Whole Blood Reviewed date:09/30/2023 06:15:31 PM Interpretation: Performing Lab:[facility], [address] [place] [phone] Notes/Report: Glucose, Whole Blood 144 60-115 mg/dL METER #: [id number] Testing performed in the [facility] Grace Gonzalez [address], [facility]. SLIDE REVIEW Reviewed date:09/30/2023 02:09:35 PM Interpretation: Performing Lab:[facility], [address] [place] [phone] Notes/Report: SLIDE REVIEW VERIFIED Occult Blood, Stool, Guaiac Reviewed date:10/07/2023 11:34:21 AM Interpretation:Negative Performing Lab: Notes/Report: Negative Occult Blood, Stool, Guaiac Neg Prothrombin Time INR Reviewed date:10/07/2023 12:33:09 PM Interpretation: Performing Lab:[facility], [address] [place] [phone] Notes/Report: Prothrombin Time 37.8 11.1-13.3 SEC INTERNATIONAL [...] INR Reviewed date:10/22/2023 12:23:47 PM Interpretation: Performing Lab:[facility], [address] [place] [phone] Notes/Report: Prothrombin Time 37.2 11.1-13.3 SEC INTERNATIONAL [...] INR Reviewed date:11/07/2023 12:43:56 PM Interpretation: Performing Lab:[facility], [address] [place] [phone] Notes/Report: Prothrombin Time 37.5 11.1-13.3 SEC INTERNATIONAL [...] INR Reviewed date:11/19/2023 12:00:58 PM Interpretation: Performing Lab:[facility], [address] [place] [phone] Notes/Report: Prothrombin Time 34.9 11.1-13.3 SEC INTERNATIONAL [...] INR Reviewed date:12/03/2023 12:04:42 PM Interpretation: Performing Lab:[facility], [address] [place] [phone] Notes/Report: Prothrombin Time 23.3 11.1-13.3 SEC INTERNATIONAL [...] INR Reviewed date:12/17/2023 12:24:57 PM Interpretation: Performing Lab:[facility], [address] [place] [phone] Notes/Report: Prothrombin Time 27.8 10.9-12.4 SEC INTERNATIONAL [...] INR Reviewed date:01/02/2024 08:22:51 AM Interpretation: Performing Lab:[facility], [address] [place] [phone] Notes/Report: Prothrombin Time 42.1 10.9-12.4 SEC INTERNATIONAL [...] Blood Reviewed date:01/05/2024 05:02:16 PM Interpretation: Performing Lab:[facility], [address] [place] [phone] Notes/Report: Glucose, Whole Blood 190 60-115 mg/dL METER #: [id number] Testing performed in the [facility] [facility]. Prothrombin Time INR Reviewed date:01/07/2024 01:11:11 PM Interpretation: Performing Lab:[facility], [address] [place] [phone] Notes/Report: Prothrombin Time 31.0 10.9-12.4 SEC INTERNATIONAL [...] INR Reviewed date:01/21/2024 12:49:48 PM Interpretation: Performing Lab:[facility], [address] [place] [phone] Notes/Report: Prothrombin Time 31.9 10.9-12.4 SEC INTERNATIONAL [...] INR Reviewed date:02/17/2024 08:32:12 AM Interpretation: Performing Lab:[address] [phone] Notes/Report: Prothrombin Time 20.5 10.9-12.4 SEC INTERNATIONAL [...] INR Reviewed date:02/25/2024 12:31:15 PM Interpretation: Performing Lab:[facility], [address] [place] [phone] Notes/Report: Prothrombin Time 26.0 10.9-12.4 SEC INTERNATIONAL [...] INR Reviewed date:03/12/2024 12:34:57 PM Interpretation: Performing Lab:[facility], [address] [place] [phone] Notes/Report: Prothrombin Time 32.7 10.9-12.4 SEC INTERNATIONAL [...] heart valves: 2.5 - 3.5 Lipid Panel Reviewed date:03/17/2024 04:35:59 PM Interpretation: Performing Lab:[facility], [address] [place] [phone] Notes/Report: Triglycerides 207 <150 mg/dL Desirable Triglyceride: [...] A1c Reviewed date:03/15/2024 04:56:43 PM Interpretation: Performing Lab:[facility], [address] [place] [phone] Notes/Report: Hemoglobin A1c % 7.2 <6.0 % [...] average glucose, using the formula of the Z1Q-Lpwhekz Average Glucose study (ADAG), Diabetes Care, Vol.31,#8, 2007 Glucose, Whole Blood Reviewed date:03/17/2024 04:28:32 PM Interpretation: Performing Lab:[facility], [address] [place] [phone] Notes/Report: Glucose, Whole Blood 170 60-115 mg/dL METER #: [id number] Testing performed in the [facility] , [address], [facility]. Prothrombin Time INR (Not ye t reviewed by provider) Interpretation: Performing Lab:[facility], [address] [place] [phone] Notes/Report: Prothrombin Time 25.6 10.9-12.4 SEC INTERNATIONAL NORM RATIO 2.2 0.9-1.1 [...] 20 MG TAKE 1 TABLET BY MO [facility] EVERY MORNING for 90 Active Jardiance 25 MG 1 tablet Orally Once a day Not-Taking Vitamin D 50 MCG (1999 UT) 1 capsule Orally Once a day for 30 day(s) Active Diprolene AF 0.05 % 1 application Cryptozoologist ally Once a day for 30 days 02/23/2019 Not-Takin g FreeStyle Lite Test - USE TO TEST BLOOD SUGAR ONCE DAILY for 50 Active diazePAM 5 MG (Schedule IV Drug) T KVNG ONE TABLET BY MOUTH EVERY 6 HOURS NEEDED FOR MUSCLE SPASM Oral for 3 Not-Taking Januvia 50 MG as directed Orally O nce a day for 30 days 06/10/2017 Not-Taking Atenolol 50 MG TAKE 2 TABLETS BY [facility] TWICE DAILY for 90 Active Mupirocin 2 % 1 application Cryptozoologist ally Twice a day for 5 day(s) 03/28/2021 Active Onglyza 5 MG 1 tablet Orally [...] Code Notes Problem Thrombocytopenia (D69.6) Active confirmed 930576285 Problem Tubular adenoma (D36.9) Active confirmed 646038198 Problem Nevus (D22.9) Active confirmed 50499169 Problem Mixed hyperlipidemia (E78.2) Active confirmed Mixed hyperlipidemia (180007505) Problem Paroxysmal atrial fibrillation (I48.0) Active confirmed Paroxysmal atri al fibrillation (709792135) Problem Primary insomnia (F51.01) Active confirmed 5788216 Problem Lumbar disc disease (M51.9) Active confirmed 68680981 Problem Essential hypertension (I10) Active confirmed 94805518 Problem halfway current use of anticoagulant (Z79.01) Active confirmed Long-term curre nt use of anticoagulant (789585125) Problem lobsterman current use of anticoagulant therapy (Z79.01) Active confirmed Long-term c urrent use of anticoagulant (299952587) Problem Type 2 diabetes mellitus with 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) Active confirmed 74907773 Problem Acute systolic congestive heart failure (I50.21) Active confirmed 244557447 Problem Pressure sore (L89.90) Active confirmed Pressure injury (morphologic abnormality) (8336337224) Problem Encounter for current long-term use of anticoagulants (Z79.01) Active confirmed Long-term curre nt use of anticoagulant (777781409) Problem Abnormal platelets (D69.1) Active confirmed 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) Problem Temporary low platelet count (D69.6) Active confirmed 116833343 Problem 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 725788624 Problem 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) Active confirmed 05589301 Problem Pressure injury of sacral region, unstageable (L89.150) Active confirmed 24628201225502386 VITAL SIGNS Blood pressure diastolic 64 mm [...] Location Date Provider Diagnosis Brody Goldberg MD [address] [place] [id number] 10/07/2023 Brody Goldberg Paroxysmal atrial fibrillation I48.0 ; lobsterman current use of anticoagulant Z79.01 ; 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 ; Tubular adenoma D36.9 ; Mixed hyperlipidemia E78.2 ; Essential hypertension I10 ; Acute systolic congestive heart failure I50.21 ; Colon cancer screening Z12.11 and Encounter for screening for depression Z13.31 Brody Goldberg MD [address] [place] [address] Drive [address] [place] [address] [id number] 09/30/2023 Brody Goldberg Mixed hyperlipidemia E78.2 ; 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 ; Thrombocytopenia D69.6 and Acute systolic congestive heart failure I50.21 Brody Goldberg MD [address] [place] [id number] 03/28/2023 Brody Goldberg 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 ; Mixed hyperlipidemia E78.2 ; Paroxysmal atrial fibrillation I48.0 and lobsterman current use of anticoagulant Z79.01 Brody Goldberg MD [address] [place] [address] [id number] 04/04/2023 Brody Bombardier Paroxysmal atrial fibrillation I48.0 and Encounter for current long-term use of anticoagulants Z79.01 Brody Goldberg MD [address] [place] [id number] 07/02/2023 Brody Bombardier Paroxysmal atrial fibrillation I48.0 and Encounter for current long-term use of anticoagulants Z79.01 Brody Goldberg MD [address] [place] [address] [id number] 07/16/2023 Brody Goldberg Encounter for curren t long-term use of anticoagulants Z79.01 Brody Goldberg MD [address] [place] [address] [id number] 07/30/2023 Brody Bombardier Paroxysmal atrial fibrillation I48.0 ; Encounter for current long-term use of anticoagulants Z79.01 and lobsterman current use of anticoagulant therapy Z79.01 Brody Goldberg MD [address] [place] [address] [id number] 08/13/2023 Brody Bombardier Paroxysmal atrial fibrillation I48.0 and Encounter for current long-term use of anticoagulants Z79.01 Brody Goldberg MD [address] [place] [address] [id number] 08/27/2023 Brody Bombardier Paroxysmal atrial fibrillation I48.0 and halfway current use of anticoagulant Z79.01 Brody Goldberg MD [address] [place] [address] [id number] 09/10/2023 Brody Bombardier Paroxysmal atrial fibrillation I48.0 and halfway current use of anticoagulant Z79.01 Brody Goldberg MD [address] [place] [address] [id number] 09/24/2023 Brody Bombardier Paroxysmal atrial fibrillation I48.0 and lobsterman current use of anticoagulant Z79.01 Brody Goldberg MD [address] [place] [address] [id number] 10/22/2023 Brody Bombardier Paroxysmal atrial fibrillation I48.0 and halfway current use of anticoagulant Z79.01 Brody Goldberg MD [address] [place] [address] [id number] 11/07/2023 Brody Bombardier Paroxysmal atrial fibrillation I48.0 and Encounter for current long-term use of anticoagulants Z79.01 Brody Goldberg MD [address] [place] [address] [id number] 11/19/2023 Brody Bombardier Paroxysmal atrial fibrillation I48.0 and Encounter for current long-term use of anticoagulants Z79.01 Brody Goldberg MD [address] [place] [address] [id number] 12/03/2023 Brody Bombardier Paroxysmal atrial fibrillation I48.0 ; Encounter for immunization Z23 and Encounter for current long-term use of anticoagulants Z79.01 Brody Goldberg MD [address] [place] [address] [id number] 12/17/2023 Brody Bombardier Paroxysmal atrial fibrillation I48.0 and Encounter for current long-term use of anticoagulants Z79.01 Brody Goldberg MD [address] [place] [address] [id number] 12/31/2023 Brody Bombardier Paroxysmal atrial fibrillation I48.0 and Encounter for current long-term use of anticoagulants Z79.01 Brody Goldberg MD [address] [place] [address] [id number] 01/07/2024 Brody Bombardier Paroxysmal atrial fibrillation I48.0 and Encounter for current long-term use of anticoagulants Z79.01 Brody Goldberg MD [address] [place] [address] [id number] 01/21/2024 Brody Bombardier Paroxysmal atrial fibrillation I48.0 and halfway current use of anticoagulant Z79.01 Brody Goldberg MD [address] [place] [address] [id number] 02/04/2024 Brody Bombardier Paroxysmal atrial fibrillation I48.0 and lobsterman current use of anticoagulant Z79.01 Brody Goldberg MD [address] [place] [address] [id number] 02/25/2024 Brody Bombardier Paroxysmal atrial fibrillation I48.0 and lobsterman current use of anticoagulant Z79.01 Brody Goldberg MD [address] [place] [address] [id number] 03/12/2024 Brody Goldberg Paroxysmal atrial fibrillation I48.0 and lobsterman current use of anticoagulant Z79.01 Brody Goldberg MD [address] [place] [address] [id number] 03/24/2024 Brody Goldberg Paroxysmal atrial fibrillation I48.0 and halfway current use of anticoagulant therapy Z79.01 Brody Goldberg MD [address] [place] [address] [id number] 04/04/2023 Brody Goldberg lobsterman current us e of anticoagulant Z79.01 ; Mixed hyperlipidemia E78.2 and 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 Brody Goldberg MD [address] [place] [address] [id number] 02/27/2024 Brody Goldberg MD [address] [place] [address] [id number] 03/24/2024 Brody Goldberg Pressure sore L89.90 Brody Goldberg MD [address] [place] [address] [id number] 04/15/2023 Brody Goldberg COVID-19 U07.1 Brody Goldberg MD [address] [place] [address] [id number] 05/13/2023 Brody Goldberg MD [address] [place] [address] [id number] 05/18/2023 Brody Goldberg MD [address] [place] [address] [id number] 06/25/2023 Brody Goldberg MD [address] [place] [address] [id number] 11/05/2023 Brody Goldberg MD [address] [place] [address] [id number] 02/25/2024 Brody Goldberg ASSESSMENTS Encounter Date Diagnosis Assessment Notes Treatment Notes Treatment Clinical Notes 10/07/2023 Paroxysmal atrial fibrillation (ICD-10 - I48.0) not having any problems, will continue current regiment 10/07/2023 lobsterman current us e of anticoagulant (ICD-10 - [...] Paroxysmal atrial fibrillation (ICD-10 - I48.0) 08/27/2023 lobsterman current us e of anticoagulant (ICD-10 - Z79.01) 09/10/2023 Paroxysmal atrial fibrillation (ICD-10 - I48.0) 09/10/2023 halfway current us e of anticoagulant (ICD-10 - Z79.01) 09/24/2023 Paroxysmal atrial fibrillation (ICD-10 - I48.0) 09/24/2023 lobsterman current us e of anticoagulant (ICD-10 - Z79.01) 10/22/2023 Paroxysmal atrial fibrillation (ICD-10 - I48.0) 10/22/2023 halfway current us e of anticoagulant (ICD-10 - [...] Paroxysmal atrial fibrillation (ICD-10 - I48.0) 01/21/2024 lobsterman current us e of anticoagulant (ICD-10 - Z79.01) 02/04/2024 Paroxysmal atrial fibrillation (ICD-10 - I48.0) 02/04/2024 halfway current us e of anticoagulant (ICD-10 - Z79.01) 02/25/2024 Paroxysmal atrial fibrillation (ICD-10 - I48.0) 02/25/2024 lobsterman current us e of anticoagulant (ICD-10 - Z79.01) 03/12/2024 Paroxysmal atrial fibrillation (ICD-10 - I48.0) 03/12/2024 lobsterman current us e of anticoagulant (ICD-10 - Z79.01) 03/24/2024 Paroxysmal atrial fibrillation (ICD-10 - I48.0) 03/24/2024 halfway current us e of anticoagulant therapy (ICD-10 - Z79.01) 04/04/2023 Mixed hyperlipidemia (ICD-10 - E78.2) stable, will continue current regiment 04/04/2023 lobsterman current us e of anticoagulant (ICD-10 - Z79.01) not having any problems, will continue current regiment 03/24/2024 Pressure sore (ICD-1 0 - L89.90) 04/15/2023 COVID-19 (ICD-10 - U07.1) not appearing very sick and not getting worse. too late to take paxlovid. 10/07/2023 Type 2 diabetes mellitus with diabetic neuropathy (ICD-10 - E11.40) seeing endocrine, will continue current regiment 09/30/2023 Thrombocytopenia (ICD-10 - D69.6) 03/28/2023 Paroxysmal atrial fibrillation (ICD-10 - I48.0) 07/30/2023 halfway current us e of anticoagulant therapy (ICD-10 - Z79.01) 12/03/2023 Encounter for teresa pearce long-term use of anticoagulants (ICD-10 - Z79.01) 04/04/2023 Type 2 diabetes mellitus with diabetic neuropathy (ICD-10 - E11.40) has been doing well on low carb diet, will continue current regiment 10/07/2023 Tubular adenoma (ICD-10 - D36.9) talked about need for colonoscopy 09/30/2023 Acute systolic congestive heart failure (ICD-10 - I50.21) 03/28/2023 lobsterman current us e of anticoagulant (ICD-10 - [...] SINUS W&WO CONTRAST 12/08/2012 Prothrombin Time INR 03/24/2024 Liver Panel 04/02/2024 Glucose Fasting 04/02/2024 Lipid Panel with Reflex 04/02/2024 Hemoglobin A1c 04/02/2024 Next Appt Details Provider Name:Brody velarde, 04/02/2024 07:30:00 AM, [address] [facility], [address], [place], [place], [id number], Provider Name:Brody Parikh ier, 04/09/2024 09:00:00 AM, [address] [facility], [address], [place], [phone], Provider Name:Brody Parikh ier, 10/01/2024 08:00:00 AM, [address] [place] [address], Suite [facility], [place], [place], [phone], Provider Name:Brody Parikh ier, 10/08/2024 11:00:00 AM, [address] [place] [address], Suite [facility], [place], [id number], Insurance Providers Payer Name Payer Address Payer Phone Subscriber Number Group Number Insured Name Patient Relationship to Insured Coverage Start Date Coverage End Date MEDICARE [address]IC [address] [place] [address] [id number] Jayy Rodriguez Self - patient is the insured 3 [employer] [place] [address] [place] [phone] [id number] Jayy Rodriguez Self - patient is the [...]
--- OUTSIDE RECORDS SUMMARY | 2024-03-24 12:06 | XMS_ITS ---
Author Organization Brody Goldberg MD Address [address] [place] [phone] Care Team Providers Care Director Of Instructional Technology Name Role Phone Brody Goldberg Primary Care Provider RESULTS Component Value Reference Range Notes Prothrombin Time INR Reviewed date:03/12/2024 12:34:57 PM Interpretation: Performing Lab:[facility], [address] [place] [phone] Notes/Report: Prothrombin Time 32.7 10.9-12.4 SEC INTERNATIONAL [...] Brody Goldberg MD [address] [place] [phone] 03/12/2024 Brody Goldberg Paroxysmal atrial fibrillation I48.0 and senior care current use of anticoagulant Z79.01 ASSESSMENTS Encounter Date Diagnosis Assessment Notes Treatment Notes Treatment Clinical Notes 03/12/2024 Paroxysmal atrial fibrillation (ICD-10 - I48.0) 03/12/2024 senior care current us e of anticoagulant (ICD-10 - Z79.01) PLAN OF TREATMENT Next Appt Details Provider Name:Brody velarde, 04/02/2024 07:30:00 AM, [address] [place] [address], [address], [place] Rodriguez, [phone], Provider Name:Brody velarde, 04/09/2024 09:00:00 AM, [address] [place] [address], [address], [place], [id number], Provider Name:Brody velarde, 10/01/2024 08:00:00 AM, [address] [place] [address], [address], [place] Rodriguez, [id number], Provider Name:Brody velarde, 10/08/2024 11:00:00 AM, [address] [place] [address], [address], [place], [phone],
--- OUTSIDE RECORDS SUMMARY | 2024-03-24 12:06 | XMS_ITS ---
Author Organization Brody Goldberg MD Address [address] [place] [phone] Care Team Providers Care Photographic Lithographer Name Role Phone Brody Goldberg Primary Care Provider RESULTS Component Value Reference Range Notes Prothrombin Time INR (Not ye t reviewed by provider) Interpretation: Performing Lab:[facility], [address] [place] [phone] Notes/Report: Prothrombin Time 25.6 10.9-12.4 SEC INTERNATIONAL [...] Brody Goldberg MD [address] [place] [phone] 03/24/2024 Brody Goldberg Paroxysmal atrial fibrillation I48.0 and long-term current use of anticoagulant therapy Z79.01 ASSESSMENTS Encounter Date Diagnosis Assessment Notes Treatment Notes Treatment Clinical Notes 03/24/2024 Paroxysmal atrial fibrillation (ICD-10 - I48.0) 03/24/2024 long-term current us e of anticoagulant therapy (ICD-10 - Z79.01) PLAN OF TREATMENT Pending Test Test Name Order Date Prothrombin Time INR 03/24/2024 Next Appt Details Provider Name:Brody Dawson Kati velarde, 04/02/2024 07:30:00 AM, [address] [place] [address], [address], [place], [id number], Provider Name:Brody velarde, 04/09/2024 09:00:00 AM, [address] [place] [address], [address], [place], [phone], Provider Name:Brody velarde, 10/01/2024 08:00:00 AM, [address] [place] [address], [address], [place] Rodriguez, [id number], Provider Name:Brody velarde, 10/08/2024 11:00:00 AM, [address] [place] [address], [address], [place] Rodriguez, [phone],
== END 2024-03-24 10:50 | disposition home or self-care (01) ==
LOC: HO.LNP 10:49
PROVIDERS: Visit Provider Internal Medicine
DX: I48.0 Paroxysmal atrial fibrillation (principal); Z79.01 Long term (current) use of anticoagulants
CPT/HCPCS: 85610

== ENCOUNTER 2024-04-02 10:48 | Outpatient (REF) | payer MEDICARE, SELFPAY ==
[2024-04-02 11:13] LABS: Estimated Average Glucose 157 mg/dL; Hemoglobin A1C 223.1399 umol/L; Hemoglobin A1c % 7.1 % (<6.0); Total Hemoglobin (HGBA1C) 4163.4233 umol/L
[2024-04-02 11:26] LABS: Alanine Aminotransferase 18 U/L (0-40); Albumin Level 4.1 g/dL (3.5-5.0); Alkaline Phosphatase 65 U/L (39-117); Aspartate Amino Transferase 24 U/L (5-37); Bilirubin Direct 0.2 mg/dL (0.0-0.5); Bilirubin Total 0.5 mg/dL (0.0-1.0); Cholesterol 140 mg/dL (<200); Glucose Fasting 153 mg/dL (60-99); HDL Cholesterol 40 mg/dL (>40); LDL Cholesterol Calculated 61 mg/dL (<100); Total Protein 7.3 g/dL (6.5-8.0); Triglycerides 196 mg/dL (<150)
[2024-04-02 12:51] LABS: Reflex LDLD? No
== END 2024-04-02 10:49 | disposition home or self-care (01) ==
LOC: HO.LNP 10:48
PROVIDERS: Visit Provider Internal Medicine
DX: E78.2 Mixed hyperlipidemia (principal); E11.40 Type 2 diabetes mellitus with diabetic neuropathy, unspecified
CPT/HCPCS: 80061; 80076; 82947; 83036

== ENCOUNTER 2024-04-09 11:31 | Outpatient (REF) | payer MEDICARE, SELFPAY ==
[2024-04-09 11:43] LABS: INTERNATIONAL NORM RATIO 2.7 (0.9-1.1); Prothrombin Time 31.7 SEC (10.9-12.4)
--- OUTSIDE RECORDS SUMMARY | 2024-04-09 13:59 | XMS_ITS ---
Author Organization Brody Goldberg MD Address [address] [place], [place] [phone] Care Team Providers Care Die Mounter Name Role Phone Brody Goldberg Primary Care Provider [phone] Results Component Value Reference Range Notes Liver Panel Reviewed date:04/02/2024 05:16:30 PM Interpretation: Performing Lab:[facility], [address] [place] [phone] Notes/Report: Bilirubin Total 0.5 0.0-1.0 mg/dL Bilirubin Direct 0.2 0.0-0.5 mg/dL Aspartate Amino Transferase 24 5-37 U/L Alanine Aminotransferase 18 0-40 U/L Total Protein 7.3 6.5-8.0 g/dL Albumin Level 4.1 3.5-5.0 g/dL Alkaline Phosphatase 65 39-117 U/L Glucose Fasting Reviewed date:04/02/2024 05:15:41 PM Interpretation: Performing Lab:[address] [phone] Notes/Report: Glucose Fasting 153 60-99 mg/dL A fasting glucose of 126 mg/dl or greater on more than one occasion is considered diagnostic of diabetes. Lipid Panel with Reflex Reviewed date:04/02/2024 05:16:03 PM Interpretation: Performing Lab:[facility], [address] [place] [phone] Notes/Report: Triglycerides 196 <150 mg/dL Desirable Triglyceride: less than 150 mg/dL Borderline High Triglyceride 150-199 mg/dL High Triglyceride: 200-499 mg/dL Very High Triglyceride: greater than or equal to 5OO mg/dL Cholesterol 140 <200 mg/dL Desirable Cholesterol: less than 200 mg/dL Borderline High Cholesterol: 200-239 mg/dL High Cholesterol: greater than 239 mg/dL LDL Cholesterol Calculated 61 <100 mg/dL Desirable LDL: less than 100 mg/dL Near Optimal/Above Optimal LDL: 110-129 mg/dL Borderline High LDL: 130-159 mg/dL High LDL: 160-189 mg/dL Very High LDL: greater than or equal to 190 mg/dL HDL Cholesterol 40 >40 mg/dL Desirable HDL: greater than 40 mg/dL Note: This HDL assay may give artificially low results in patients with liver disease. Hemoglobin A1c Reviewed date:04/02/2024 05:16:13 PM Interpretation: Performing Lab:[facility], [address] [place] [phone] Notes/Report: Hemoglobin A1c % 7.1 <6.0 % [...] average glucose, using the formula of the U8A-Rqhudjr Average Glucose study (ADAG), Diabetes Care, Vol.31,#8, Oct. 2007 REASON FOR VISIT FASTING LIPIDS Encounters Encounter Location Date Provider Diagnosis Brody Goldberg MD [address] [place] [address] [address] [place], [place] [phone] 04/02/2024 Brody Goldberg Mixed hyperlipidemia E78.2 and 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 Assessments Encounter Date Diagnosis (ICD Code) Assessment Notes Treatment Notes Treatment Clinical Notes Section Notes 04/02/2024 Mixed hyperlipidemia (ICD-10 - E78.2) 04/02/2024 Type 2 diabetes mellitus with diabetic neuropathy (ICD-10 - E11.40) Plan Of Treatment Next Appt Details Provider Name:Brody Parikh ier, 10/01/2024 08:00:00 AM, [address], [address], [place], [place], [phone], Provider Name:Brody Parikh ier, 10/08/2024 11:00:00 AM, [address], [address], [place], [place], [phone], Progress Notes * Jayy RODRIGUEZ LDOB:1945 ([age] yo M)Acc No.[id number]:04/02/2024 Progress Note Patient:?Jayy RODRIGUEZ Provider:?Brody Goldberg MD :1945???Age:78 Y???Sex:Male Alexey e:04/02/2024 Address:[address] [place], [place] [phone] Subjective: * Chief Complaints: * ???1. FASTING LIPIDS. * Medical History:? Objective: * Vitals:? Assessment: * Assessment: 1.?Mixed hyperlipidemia - E7 8.2 (Primary)???2.?Type 2 diabetes mellitus with diabetic neuropathy - E11.40??? Plan: * Treatment: 2.?Type 2 diabetes mellitus with diabetic neuropathy?LAB: Liver Panel (Collection Date & Time - 04/02/2024 07:30 AM) ?LAB: Glucose Fasting (Collection Date & Time - 04/02/2024 07:30 AM) ?LAB: Lipid Panel with Reflex (Collection Date & Time - 04/02/2024 07:30 AM) ?LAB: Hemoglobin A1c (Collection Date & Time - 04/02/2024 07:30 AM) * Procedure Codes:?40233 VENIP UNCT, ROUTINE* * * The named appointment provid er may or may not be the originator of this progress note, and it is not deemed complete until electronically signed by the appointment provider. Sign off status: Pending * Provider:?Brody Goldberg MD Date:?0 04/02/2024 Generated for Mariposai ng/Fadaphneg/eTransmitting on:?04/09/2024 01:59 PM EST
--- OUTSIDE RECORDS SUMMARY | 2024-04-09 13:59 | XMS_ITS ---
Author Organization Brody Goldberg MD Address [address] [place], [place] [phone] Care Team Providers Care Interventional Pain Physician Name Role Phone Brody Goldberg Primary Care Provider [phone] Allergies Allergen (clinical drug ingredient) Drug/Non Drug Allergy documented on EMR Reaction Allergy Type Onset Date Status metformin Metformin HCl diarrhea Drug Allergy Act enzo lisinopril Lisinopril couigh Drug Allergy Activ e REASON FOR VISIT 6 MO F/U Medications Medication SIG (Take, Route, Frequency, Duration) Notes Start Date End Date Status Losartan Potassium-HCTZ 100-25 MG TAKE 1 TABLET BY MOUTH EVERY DAY Active Lantus SoloStar 100 UNIT/ML 26 units Qpm once a day Acti ve Vitamin D 50 MCG (1999) 1 capsule Orally Once a day for 30 day(s) Active Warfarin Sodium 5 MG ALTERNATE BETWEEN T AKING 1.5 TABLETS BY MOUTH EVERY DAY AND 2 TABLETS BY MOUTH EVERY DAY DIRECTED Active FreeStyle Lite Test - USE TO TEST BLOOD SUGAR ONCE DAILY for 50 Active HumaLOG KwikPen 100 UNIT/ML 8 units three times a day Active Mupirocin 2 % 1 application Manufacturing Assembler ally Twice a day for 5 day(s) 03/28/2021 Active diazePAM 5 MG (Schedule IV Drug) T KVNG ONE TABLET BY MOUTH EVERY 6 HOURS NEEDED FOR MUSCLE SPASM Oral for 3 Not-Taking Pravastatin Sodium 40 MG 1 tablet Orally Once a day Active Diprolene AF 0.05 % 1 application Manufacturing Assembler ally Once a day for 30 days 02/23/2019 Not-Faustino g PARoxetine HCl 20 MG TAKE 1 TABLET BY [facility] EVERY MORNING for 90 Active Atenolol 50 MG TAKE 2 TABLETS BY [facility] TWICE DAILY for 90 Active Vital Signs Blood pressure systolic 112 mm Hg 04/09/19 25 Blood pressure diastolic 60 mm Hg 025 Height 73.5 in 04/09/2024 Weight 253 lbs 04/09/2024 BMI 32.92 kg/m2 04/09/2024 Encounters Encounter Location Date Provider Diagnosis Brody Goldberg MD [address] [place], [place] [phone] 04/09/2024 Brody Goldberg Paroxysmal atrial fibrillation I48.0 ; 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 ; Pressure injury of sacral region, 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 and Mixed hyperlipidemia E78.2 Assessments Encounter Date Diagnosis (ICD Code) Assessment Notes Treatment Notes Treatment Clinical Notes Section Notes 04/09/2024 Paroxysmal atrial fibrillation (ICD-10 - I48.0) doing well with coumadin, will continue current regiment 04/09/2024 Type 2 diabetes mellitus with diabetic neuropathy (ICD-10 - E11.40) a1c stable, will continue current regiment 04/09/2024 Pressure injury of sacral region, unstageable (ICD-10 - L89.150) 04/09/2024 Mixed hyperlipidemia (ICD-10 - E78.2) stable, will continue current regiment Plan Of Treatment Medication Medication Name Sig Start Date Stop Date Notes Lantus SoloStar 100 UNIT/ML 26 units Qpm once a day Warfarin Sodium 5 MG ALTERNATE BETWEEN T AKING 1.5 TABLETS BY MOUTH EVERY DAY AND 2 TABLETS BY MOUTH EVERY DAY DIRECTED HumaLOG KwikPen 100 UNIT/ML 8 units three times a day Mupirocin 2 % 1 application Manufacturing Assembler ally Twice a day for 5 day(s) 03/28/2021 Pravastatin Sodium 40 MG 1 tablet Orally Once a day Treatment Notes Assessment Notes Paroxysmal atrial fibrillation doing wel l with coumadin, will continue current regiment Type 2 diabetes mellitus wit h diabetic neuropathy a1c stable, will continue current regiment Mixed hyperlipidemia stable, will contin ue current regiment Next Appt Details Follow Up: 6 Months, Reason: Provider Name:Brody Parikh ier, 10/01/2024 08:00:00 AM, [address], [address], [place], [place], [phone], Provider Name:Brody Parikh ier, 10/08/2024 11:00:00 AM, [address], [address], [place], [phone], Progress Notes * Jayy RODRIGUEZ LDOB:1945 ([age] yo M)Acc No.[id number]:04/09/2024 Progress Notes Patient:?Jayy RODRIGUEZ Provider:?Brody Goldberg MD :1945???Age:78 Y???Sex:Male Alexey e:04/09/2024 Address:[address] [place], [place] [phone] Subjective: * Chief Complaints: * ???1. 6 MO F/U. * HPI: ???Symptom(s):?patient is a 78 yo male here for 6 month follow up visit. has trouble with walking. can walk 3/4 hour on treadmill before he gets tired. walks? a couple miles in [place]. no pain. * ROS:?General/Constitutional:?Denies?Chills.?Denies?Fatigue.?Denies?Fever.?Denies?Headache.?ENT:?Patient denies?decreased sense of smell, any loss of taste, sore throat.?Denies?Sore throat.?Endocrine:?Denies?Difficulty sleeping.?Denies?Dizziness.?Denies?Excessive sweating.?Denies?Excessive thirst.?Denies?Frequent urination.?Respiratory:?Denies?Cough.?Denies?Shortness of breath at rest.?Denies?Shortness of breath with exertion.?Gastrointestinal:?Denies?Diarrhea.?Denies?Nausea.?Musculoskeletal:?Patient denies?muscle aches.?Peripheral Vascular:?Patient denies?red and blue toes.? * Medical History:?Prediabetes in 2008, Tubular adenoma at colonoscopy 2005; colonoscopy 09/11/13 - repeat 5 years not sure if he is going to have another 2020, Myalgia on rosuvastatin, 2022 says he is no further colonoscopies. knows that he had a lot of polyps. * Medications:?Taking Vitamin D 50 MCG (1999 UT) Capsule 1 capsule Orally Once a day , Taking FreeStyle Lite Test - Strip USE TO TEST BLOOD SUGAR ONCE DAILY , Taking HumaLOG KwikPen 100 UNIT/ML Solution Pen-injector 8 units three times a day , Taking Losartan Potassium-HCTZ 100-25 MG Tablet TAKE 1 TABLET BY MOUTH EVERY DAY , Taking Pravastatin Sodium 40 MG Tablet 1 tablet Orally Once a day , Taking Lantus SoloStar 100 UNIT/ML Solution Pen-injector 26 units Qpm once a day , Taking Warfarin Sodium 5 MG Tablet ALTERNATE BETWEEN TAKING 1.5 TABLETS BY MOUTH EVERY DAY AND 2 TABLETS BY MOUTH EVERY DAY DIRECTED , Taking PARoxetine HCl 20 MG Tablet TAKE 1 TABLET BY MOUTH EVERY MORNING , Taking Atenolol 50 MG Tablet TAKE 2 TABLETS BY MOUTH TWICE DAILY , Taking Mupirocin 2 % Ointment 1 application Externally Twice a day , Not-Taking/PRN Diprolene AF 0.05 % Cream 1 application Externally Once a day , Not-Taking/PRN diazePAM 5 MG Tablet (Schedule IV Drug) TAKE ONE TABLET BY MOUTH EVERY 6 HOURS NEEDED FOR MUSCLE SPASM Oral , Medication List reviewed and reconciled with the patient * Allergies:?Lisinopril: couig h, Metformin HCl: diarrhea. Objective: * Vitals:?Ht: 73.5, Wt: 253, B NC:32.92, BP:112/60, Wt-k.76. * ???Past Orders: ???Lab:Glucose Fasting (Orde r Date - 04/02/2024) (Collection Date & Time - 04/02/2024 07:30 AM) ? Value Reference Range ?Glucose Fasting 153 H 60-9 9 - mg/dL ???Lab:Liver Panel (Order Da te 04/02/2024) (Collection Date & Time - 04/02/2024 07:30 AM) ? Value Reference Range ?Bilirubin Total 0.5 0.0- 1.0 - mg/dL ?Bilirubin Direct 0.2 0.0 -0.5 - mg/dL ?Aspartate Amino Transferase 24 5-37 - U/L ?Alanine Aminotransferase 18 0-40 - U/L ?Total Protein 7.3 6.5-8. 0 - g/dL ?Albumin Level 4.1 3.5-5. 0 - g/dL ?Alkaline Phosphatase 65 39-117 - U/L ???Lab:Hemoglobin A1c (Order 04/02/2024) (Collection & Time - 04/02/2024 07:30 AM) ? Value Reference Range ?Hemoglobin A1c % 7.1 H <6. 0 - % ?Estimated Average Glucose 157 - mg/dL ???Lab:Lipid Panel with Refl ex (Order 04/02/2024) (Collection Date & Time - 04/02/2024 07:30 AM) ? Value Reference Range ?Triglycerides 196 H <150 - mg/dL ?Cholesterol 140 <200 - m g/dL ?LDL Cholesterol Calculated 61 <100 - mg/dL ?HDL Cholesterol 40 L >40 - mg/dL * Examination: ???General Examination: ?GENERAL APPEARANCE:?alert, well hydrated, in no distress.?HEAD:?normocephalic.?EYES:?normal.?SKIN:?good turgor.?HEART:?no murmurs, rubs, gallops, regular rate and rhythm.?LUNGS:?clear to auscultation bilaterally, good air movement.? Assessment: * Assessment: 1.?Paroxysmal atrial fibrill ation - I48.0 (Primary)???2.?Type 2 diabetes mellitus with diabetic neuropathy - E11.40???3.?Pressure injury of sacral region, unstageable - L89.150???4.?Mixed hyperlipidemia - E78.2??? Plan: * Treatment: 2.?Type 2 diabetes mellitus with diabetic neuropathy? Continue HumaLOG KwikPen Solution Pen-injector, 100 UNIT/ML, 8 units, three times a day;?Continue Lantus SoloStar Solution Pen-injector, 100 UNIT/ML, 26 units Qpm, once a day.?? Notes: a1c stable, will continue current regiment?? 3.?Pressure injury of sacral region, unstageable? Refill Mupirocin Ointment, 2 %, 1 application, Externally, Twice a day, 5 day(s), 22, Refills 1.?? 4.?Mixed hyperlipidemia? Continue Pravastatin Sodium Tablet, 40 MG, 1 tablet, Orally, Once a day.?? Notes: stable, will continue current regiment?? * Procedure Codes:?29909 VENIP UNCT, ROUTINE* * Follow Up:?6 Months * * The named appointment provid er may or may not be the originator of this progress note, and it is not deemed complete until electronically signed by the appointment provider. Sign off status: Pending * Provider:?Brody Goldberg MD Date:?0 04/09/2024 Generated for Doron granados/Quang/Yismitting on:?04/09/2024 01:59 PM EST History and Physical Notes * HPI (History of Present Illness) Category Sub-Category Detail Notes Category Not es Symptom(s) patient is a 78 yo male here for 6 month follow up visit. has trouble with walking. can walk 3/4 hour on treadmill before he gets tired. walks a couple miles in [place]. no pain. Examination Category Sub-Category Detail Notes Category Not es General Examination GENERAL APPEARANCE: alert, w ell hydrated, in no distress HEAD: normocephalic EYES: normal HEART: no murmurs, rubs, ga llops, regular rate and rhythm LUNGS: clear to auscultatio n bilaterally, good air movement SKIN: good turgor
--- OUTSIDE RECORDS SUMMARY | 2024-04-09 13:59 | XMS_ITS ---
Author Organization Brody Goldberg MD Address [address] [place] [phone] Care Team Providers Care Electrical Checkout Mechanic Name Role Phone Brody Goldberg Primary Care Provider [phone] Results Component Value Reference Range Notes Prothrombin Time INR Reviewed date:04/09/2024 12:14:10 PM Interpretation: Performing Lab:[facility], [address] [place] [phone] Notes/Report: Prothrombin Time 31.7 10.9-12.4 SEC INTERNATIONAL NORM RATIO 2.7 0.9-1.1 [...] 2.5 - 3.5 REASON FOR VISIT INR Medications Medication SIG (Take, Route, Frequency, Duration) Notes Start Date End Date Status Warfarin Sodium 5 MG ALTERNATE BETWEEN T AKING 1.5 TABLETS BY MOUTH EVERY DAY AND 2 TABLETS BY MOUTH EVERY DAY DIRECTED Active HumaLOG KwikPen 100 UNIT/ML 8 units three times a day Active Mupirocin 2 % 1 application Edger Liner ally Twice a day for 5 day(s) 03/28/2021 Active Lantus SoloStar 100 UNIT/ML 26 units Qpm once a day Acti ve Pravastatin Sodium 40 MG 1 tablet Orally Once a day Active Losartan Potassium-HCTZ 100-25 MG TAKE 1 TABLET BY MOUTH EVERY DAY Active Atenolol 50 MG TAKE 2 TABLETS BY MO UTH TWICE DAILY for 90 Active PARoxetine HCl 20 MG TAKE 1 TABLET BY MO UTH EVERY MORNING for 90 Active diazePAM 5 MG (Schedule IV Drug) T KVNG ONE TABLET BY MOUTH EVERY 6 HOURS NEEDED FOR MUSCLE SPASM Oral for 3 Not-Taking Diprolene AF 0.05 % 1 application Edger Liner ally Once a day for 30 days 02/23/2019 Not-Takin g FreeStyle Lite Test - USE TO TEST BLOOD SUGAR ONCE DAILY for 50 Active Vitamin D 50 MCG (1999 UT) 1 capsule Orally Once a day for 30 day(s) Active Onglyza 5 MG 1 tablet Orally Once a day for 30 day(s) 06/13/2017 Not-Taking Ativan 0.5 MG 1 tablet at bedtime as needed Orally Once a day for 30 days 06/21/2011 Not-Taking Aspirin Adult Low Strength 81 MG 1 tablet Orally Once a day for 30 day(s) Not-Taking Januvia 50 MG as directed Orally O nce a day for 30 days 06/10/2017 Not-Taking Jardiance 25 MG 1 tablet Orally Once a day Not-Taking Furosemide 20 MG take 2 tablet by heriberto th every day Not-Taking Encounters Encounter Location Date Provider Diagnosis Brody Goldberg MD [address] [place] [address] [address] [place], [place] [phone] 04/09/2024 Brody Goldberg Paroxysmal atrial fibrillation I48.0 and Encounter for current long-term use of anticoagulants Z79.01 Assessments Encounter Date Diagnosis (ICD Code) Assessment Notes Treatment Notes Treatment Clinical Notes Section Notes 04/09/2024 Paroxysmal atrial fibrillation (ICD-10 - I48.0) 04/09/2024 Encounter for current long-term use of anticoagulants (ICD-10 - Z79.01) Plan Of Treatment Next Appt Details Provider Name:Bordy velarde, 10/01/2024 08:00:00 AM, [address] [place] [address], [address], [place], [place], [phone], Provider Name:Brody reyesr, 10/08/2024 11:00:00 AM, [address] [facility], [address], [place], [place], [phone], Progress Notes * Jayy RODRIGUEZ LDOB:1945 ([age] yo M)Acc No.[id number]:04/09/2024 Progress Note Patient:?Jayy RODRIGUEZ Provider:?Brody Goldberg MD :1945???Age:78 Y???Sex:Male Alexey e:04/09/2024 Address:[address] [place], [place] [phone] Subjective: * Chief Complaints: * ???1. INR. * Medical History:? * Medications:?Taking Vitamin D 50 MCG (1999 UT) Capsule 1 capsule Orally Once a day , Taking FreeStyle Lite Test - Strip USE TO TEST BLOOD SUGAR ONCE DAILY , Taking Losartan Potassium-HCTZ 100-25 MG Tablet TAKE 1 TABLET BY MOUTH EVERY DAY , Taking PARoxetine HCl 20 MG Tablet TAKE 1 TABLET BY MOUTH EVERY MORNING , Taking Atenolol 50 MG Tablet TAKE 2 TABLETS BY MOUTH TWICE DAILY , Taking Mupirocin 2 % Ointment 1 application Externally Twice a day , Taking HumaLOG KwikPen 100 UNIT/ML Solution Pen-injector 8 units three times a day , Taking Pravastatin Sodium 40 MG Tablet 1 tablet Orally Once a day , Taking Lantus SoloStar 100 UNIT/ML Solution Pen- injector 26 units Qpm once a day , Taking Warfarin Sodium 5 MG Tablet ALTERNATE BETWEEN TAKING 1.5 TABLETS BY MOUTH EVERY DAY AND 2 TABLETS BY MOUTH EVERY DAY DIRECTED , Not-Taking/PRN Furosemide 20 MG Tablet take 2 tablet by mouth every day , Not-Taking/PRN Jardiance 25 MG Tablet 1 tablet Orally Once a day , Not- Taking/PRN Januvia 50 MG Tablet as directed Orally Once a day , Not-Taking/PRN Onglyza 5 MG Tablet 1 tablet Orally Once a day , Not-Taking/PRN Aspirin Adult Low Strength 81 MG Tablet Delayed Release 1 tablet Orally Once a day , Not-Taking/PRN Ativan 0.5 MG Tablet 1 tablet at bedtime as needed Orally Once a day , Not-Taking/PRN Diprolene AF 0.05 % Cream 1 application Externally Once a day , Not-Taking/PRN diazePAM 5 MG Tablet (Schedule IV Drug) TAKE ONE TABLET BY MOUTH EVERY 6 HOURS NEEDED FOR MUSCLE SPASM Oral Objective: * Vitals:? Assessment: * Assessment: 1.?Paroxysmal atrial fibrill ation - I48.0 (Primary)???2.?Encounter for current long-term use of anticoagulants - Z79.01??? Plan: * Treatment: 2.?Encounter for current vannesa g-term use of anticoagulants?LAB: Prothrombin Time INR (Collection Date & Time - 04/09/2024 09:00 AM) * Procedure Codes:?18541 VENIP UNCT, ROUTINE* * * The named appointment provid er may or may not be the originator of this progress note, and it is not deemed complete until electronically signed by the appointment provider. Sign off status: Pending * Provider:?Brody Goldberg MD Date:?0 04/09/2024 Generated for Doron granados/Quang/Kyitting on:?04/09/2024 01:59 PM EST
== END 2024-04-09 11:32 | disposition home or self-care (01) ==
LOC: HO.LNP 11:31
PROVIDERS: Visit Provider Internal Medicine
DX: I48.0 Paroxysmal atrial fibrillation (principal); Z79.01 Long term (current) use of anticoagulants
CPT/HCPCS: 85610

== ENCOUNTER 2024-06-30 10:28 | Outpatient (REF) | payer MEDICARE, SELFPAY ==
[2024-06-30 10:48] LABS: Prothrombin Time 35.1 SEC (10.9-12.4)
--- OUTSIDE RECORDS SUMMARY | 2024-06-30 12:36 | XMS_ITS ---
Author Organization Brody Goldberg MD Address [address] [place] [phone] Care Team Providers Care Plate Hanger Name Role Phone Brody Goldberg Primary Care Provider REASON FOR VISIT PT-INR Encounters Encounter Location Date Provider Diagnosis Brody Goldberg MD [address] [facility] [address] [place] [phone] 06/05/2024 Brody Goldberg Plan Of Treatment Next Appt Details Provider Name:Brody velarde, 10/01/2024 08:00:00 AM, [address] [place] [address], [address], [phone], Provider Name:Brody Parikh iemiller, 10/08/2024 11:00:00 AM, [address] [place] [address], [address], [phone], Progress Notes * Jayy RODRIGUEZ LDOB:1945 ([age] yo M)Acc No.[id number]:06/05/2024 Patient:?Jayy RODRIGUEZ :1945???Age:78 Y???Sex:Male Address:[address] [place] [address] * true * Date:? Generated for Doron granados/Quang/Kyitting on:?06/30/2024 12:36 PM EDT
--- OUTSIDE RECORDS SUMMARY | 2024-06-30 12:37 | XMS_ITS | Patient Health Record ---
Author Organization Brody Goldberg MD Address [address] [place], [place] [id number] Care Team Providers Care Passenger Service Manager Name Role Phone Brody Goldberg Primary Care Provider [phone] Allergies Allergen (clinical drug ingredient) Drug/Non Drug Allergy documented on EMR Reaction Allergy Type Onset Date Status metformin Metformin HCl diarrhea Drug Allergy Act enzo Lisinopril couigh Drug Allergy Active Results Component Value Reference Range Notes Prothrombin Time INR Reviewed date:07/02/2023 11:45:41 AM Interpretation: Performing Lab:[address] [phone] Notes/Report: Prothrombin Time 28.7 11.1-13.3 SEC INTERNATIONAL [...] INR Reviewed date:07/16/2023 12:18:39 PM Interpretation: Performing Lab:[address] [phone] Notes/Report: Prothrombin Time 27.7 11.1-13.3 SEC INTERNATIONAL [...] 2.5 - 3.5 Prothrombin Time INR Reviewed date:07/30/2023 12:41:13 PM Interpretation: Performing Lab:[facility], [address] [place] [phone] Notes/Report: Prothrombin Time 27.0 11.1-13.3 SEC INTERNATIONAL [...] INR Reviewed date:08/13/2023 11:38:41 AM Interpretation: Performing Lab:[facility], [address] [place] [phone] Notes/Report: Prothrombin Time 28.5 11.1-13.3 SEC INTERNATIONAL [...] INR Reviewed date:08/27/2023 11:27:23 AM Interpretation: Performing Lab:[facility], [address] [place] [phone] Notes/Report: Prothrombin Time 32.3 11.1-13.3 SEC INTERNATIONAL [...] INR Reviewed date:09/10/2023 12:34:36 PM Interpretation: Performing Lab:[address] [phone] Notes/Report: Prothrombin Time 34.1 11.1-13.3 SEC INTERNATIONAL [...] INR Reviewed date:09/24/2023 12:56:05 PM Interpretation: Performing Lab:[address] [phone] Notes/Report: Prothrombin Time 30.7 11.1-13.3 SEC INTERNATIONAL [...] ff Reviewed date:09/30/2023 12:39:19 PM Interpretation: Performing Lab:[facility], [address] [place] [phone] Notes/Report: White Blood Count 8.1 4.8-10.8 X10*3/uL [...] X10*3/uL NRBC Abs Auto 0.000 0.0-0.012 X10*3/uL CORRECTED REPORT CORRECTED REPORT Urinalysis and Microscopic Reviewed date:09/30/2023 05:57:39 PM Interpretation: Performing Lab:[facility], [address] [place] [phone] Notes/Report: Color Urine Yellow Appearance Urine Clear PH 6.0 5.0-9.0 Glucose Urine UA Negative Negative mg/dL Urine Blood Negative Negative Specific [place] - Urine 1.020 1.005-1.025 Urine Protein Negative Neg-Trace mg/dL Urine Ketones Negative Negative mg/dL Nitrite Urine Negative Negative Leukocyte Esterase Urine Negative Negative RBC Urine 0-2 0-2 /HPF WBC Urine 0-5 0-5 /HPF Squamous Epithelial Cell Urine 0-2 0-2 /HPF Bacteria Urine None Seen None Seen Hyaline Casts Urine 0-2 0-2 /LPF Comprehensive [place]. Panel Fa st Reviewed date:09/30/2023 06:19:38 PM Interpretation: Performing Lab:[facility], [address] [phone] Notes/Report: Sodium 143 135-145 mmol/L Potassium 4.3 3.3-5.1 mmol/L Chloride 105 96-108 mmol/L Carbon Dioxide 30 22-29 mmol/L Anion Gap 12 12-20 Blood Urea Nitrogen 25 9-16 mg/dL Creatinine 0.91 0.5-1.4 mg/dL Estimated Glomerular Filt Rate > 60 NOTE: For -Moroc[place] individuals, multiply the result by 1.210. Chronic [...] Panel Reviewed date:09/30/2023 12:39:39 PM Interpretation: Performing Lab:[facility], [address] [phone] Notes/Report: Triglycerides 198 <150 mg/dL Desirable Triglyceride: [...] (Free>4and<10) Reviewed date:09/30/2023 12:37:03 PM Interpretation: Performing Lab:[address] [phone] Notes/Report: PSA,Total (Free>4and<10) 1.16 0.00-4.00 ng/mL A [...] Random Reviewed date:09/30/2023 12:37:57 PM Interpretation: Performing Lab:[address] [phone] Notes/Report: Creatinine Urine 135.02 Microalbumin Urine 26.0 Microalbum/Creatinine Ratio Ur 19.2 <30 ug/mg cr Albumin/Creatinine Ratio Reference Ranges: Normal: < 30 ug/mg creatinine Microalbuminuria: 30 - 300 ug/mg creatinine Clinical Albuminuria: > 300 ug/mg creatinine Hemoglobin A1c Reviewed date:09/30/2023 02:07:09 PM Interpretation: Performing Lab:[address] [phone] Notes/Report: Hemoglobin A1c % 7.2 <6.0 % [...] average glucose, using the formula of the E1E-Gnjuids Average Glucose study (ADAG), Diabetes Care, Vol.31,#8, Oct. 2007 Prothrombin Time INR Reviewed date:10/22/2023 12:23:47 PM Interpretation: Performing Lab:[facility], [address] [place] [phone] Notes/Report: Prothrombin Time 37.2 11.1-13.3 SEC INTERNATIONAL [...] INR Reviewed date:11/07/2023 12:43:56 PM Interpretation: Performing Lab:[facility], [address] [place] [phone] Notes/Report: Prothrombin Time 37.5 11.1-13.3 SEC INTERNATIONAL [...] INR Reviewed date:11/19/2023 12:00:58 PM Interpretation: Performing Lab:[facility], [address] [place] [phone] Notes/Report: Prothrombin Time 34.9 11.1-13.3 SEC INTERNATIONAL [...] INR Reviewed date:12/03/2023 12:04:42 PM Interpretation: Performing Lab:[facility], [address] [place] [phone] Notes/Report: Prothrombin Time 23.3 11.1-13.3 SEC INTERNATIONAL [...] INR Reviewed date:12/17/2023 12:24:57 PM Interpretation: Performing Lab:[facility], [address] [place] [phone] Notes/Report: Prothrombin Time 27.8 10.9-12.4 SEC INTERNATIONAL [...] INR Reviewed date:01/21/2024 12:49:48 PM Interpretation: Performing Lab:[facility], [address] [place] [phone] Notes/Report: Prothrombin Time 31.9 10.9-12.4 SEC INTERNATIONAL [...] INR Reviewed date:02/17/2024 08:32:12 AM Interpretation: Performing Lab:[facility], [address] [place] [phone] Notes/Report: Prothrombin Time 20.5 10.9-12.4 SEC INTERNATIONAL [...] INR Reviewed date:02/25/2024 12:31:15 PM Interpretation: Performing Lab:[facility], [address] [place] [phone] Notes/Report: Prothrombin Time 26.0 10.9-12.4 SEC INTERNATIONAL [...] INR Reviewed date:03/12/2024 12:34:57 PM Interpretation: Performing Lab:[facility], [address] [place] [phone] Notes/Report: Prothrombin Time 32.7 10.9-12.4 SEC INTERNATIONAL [...] 2.5 - 3.5 Prothrombin Time INR Reviewed date:03/24/2024 12:22:39 PM Interpretation: Performing Lab:[address] [phone] Notes/Report: Prothrombin Time 25.6 10.9-12.4 SEC INTERNATIONAL [...] valves: 2.5 - 3.5 Liver Panel Reviewed date:04/02/2024 05:16:30 PM Interpretation: Performing Lab:[address] [phone] Notes/Report: Bilirubin Total 0.5 0.0-1.0 mg/dL Bilirubin Direct 0.2 0.0-0.5 mg/dL Aspartate Amino Transferase 24 5-37 U/L Alanine Aminotransferase 18 0-40 U/L Total Protein 7.3 6.5-8.0 g/dL Albumin Level 4.1 3.5-5.0 g/dL Alkaline Phosphatase 65 39-117 U/L Glucose Fasting Reviewed date:04/02/2024 05:15:41 PM Interpretation: Performing Lab:[address] [phone] Notes/Report: Glucose Fasting 153 60-99 mg/dL A fasting glucose of 126 mg/dl or greater on more than one occasion is considered diagnostic of diabetes. Lipid Panel with Reflex Reviewed date:04/02/2024 05:16:03 PM Interpretation: Performing Lab:[address], [place] [address] Notes/Report: Triglycerides 196 <150 mg/dL Desirable Triglyceride: [...] A1c Reviewed date:04/02/2024 05:16:13 PM Interpretation: Performing Lab:[address] [phone] Notes/Report: Hemoglobin A1c % 7.1 <6.0 % [...] average glucose, using the formula of the X2J-Xlvyowj Average Glucose study (ADAG), Diabetes Care, Vol.31,#8, Oct. 2007 Prothrombin Time INR Reviewed date:04/09/2024 12:14:10 PM Interpretation: Performing Lab:[facility], [address] [place] [phone] Notes/Report: Prothrombin Time 31.7 10.9-12.4 SEC INTERNATIONAL [...] 2.5 - 3.5 Prothrombin Time INR Reviewed date:06/30/2024 11:32:00 AM Interpretation: Performing Lab:[facility], [address] [place] [phone] Notes/Report: Prothrombin Time 35.1 10.9-12.4 SEC INTERNATIONAL NORM RATIO 3.0 0.9-1.1 INTERNATIONAL NORMALIZED RATIO (INR) REFERENCE RANGES [...] mechanical prosthetic heart valves: 2.5 - 3.5 Occult Blood, Stool, Guaiac Reviewed date:10/07/2023 11:34:21 AM Interpretation:Negative Performing Lab: Notes/Report: Negative Occult Blood, Stool, Guaiac Neg Prothrombin Time INR Reviewed date:10/07/2023 12:33:09 PM Interpretation: Performing Lab:[facility], [address] [place] [phone] Notes/Report: Prothrombin Time 37.8 11.1-13.3 SEC INTERNATIONAL [...] INR Reviewed date:01/02/2024 08:22:51 AM Interpretation: Performing Lab:[facility], [address] [place] [phone] Notes/Report: Prothrombin Time 42.1 10.9-12.4 SEC INTERNATIONAL [...] 2.5 - 3.5 Prothrombin Time INR Reviewed date:01/07/2024 01:11:11 PM Interpretation: Performing Lab:[facility], [address] [place] [phone] Notes/Report: Prothrombin Time 31.0 10.9-12.4 SEC INTERNATIONAL [...] Blood Reviewed date:07/23/2023 08:27:13 AM Interpretation: Performing Lab:[facility], [address] [place] [phone] Notes/Report: Glucose, Whole Blood 184 60-115 mg/dL METER #: [id number] Testing performed [facility] [place] [address]. Glucose, Whole Blood Reviewed date:09/30/2023 06:15:31 PM Interpretation: Performing Lab:[facility], [address] [place] [phone] Notes/Report: Glucose, Whole Blood 144 60-115 mg/dL METER #: [id number] Testing performed [facility] the [facility] [place] [address]. SLIDE REVIEW Reviewed date:09/30/2023 02:09:35 PM Interpretation: Performing Lab:[facility], [address] [place] [phone] Notes/Report: SLIDE REVIEW VERIFIED Glucose, Whole Blood Reviewed date:01/05/2024 05:02:16 PM Interpretation: Performing Lab:[facility], [address] [place] [phone] Notes/Report: Glucose, Whole Blood 190 60-115 mg/dL METER #: [id number] Testing performed in the [facility], [facility]. Lipid Panel Reviewed date:03/17/2024 04:35:59 PM Interpretation: Performing Lab:[facility], [address] [place] [phone] Notes/Report: Triglycerides 207 <150 mg/dL Desirable Triglyceride: [...] A1c Reviewed date:03/15/2024 04:56:43 PM Interpretation: Performing Lab:[facility], [address] [place] [phone] Notes/Report: Hemoglobin A1c % 7.2 <6.0 % [...] average glucose, using the formula of the S5R-Rwmltkt Average Glucose study (ADAG), Diabetes Care, Vol.31,#8, Oct. 2007 Glucose, Whole Blood Reviewed date:03/17/2024 04:28:32 PM Interpretation: Performing Lab:[facility], [address] [place] [phone] Notes/Report: Glucose, Whole Blood 170 60-115 mg/dL METER #: [id number] Testing performed in the [facility] , [address], [facility]. Nayely Red Reviewed date:04/02/2024 05:17:01 PM Interpretation: Performing Lab:[facility], [address] [place] [phone] Notes/Report: Hold Red See Note Specimen held untested for 24 hours; Call to request Chemistry testing. Reason For Referral No Information Medications Medication SIG (Take, Route, Frequency, Duration) Notes Start Date End Date Status Losartan Potassium-HCTZ 100-25 MG TAKE 1 TABLET BY MOUTH EVERY DAY for 90 Active Lantus SoloStar 100 UNIT/ML 26 units Qpm once a day Acti ve Pravastatin Sodium 40 MG 1 tablet Orally Once a day Active HumaLOG KwikPen 100 UNIT/ML 8 units three times a day Active Mupirocin 2 % 1 application Potato Chip Sorter ally Twice a day for 5 day(s) 03/28/2021 Active diazePAM 5 MG (Schedule IV Drug) T KVNG ONE TABLET BY MOUTH EVERY 6 HOURS NEEDED FOR MUSCLE SPASM Oral for 3 Not-Taking Diprolene AF 0.05 % 1 application Potato Chip Sorter ally Once a day for 30 days 02/23/2019 Not-Faustino g Atenolol 50 MG TAKE 2 TABLETS BY [facility] TWICE DAILY for 90 Active PARoxetine HCl 20 MG TAKE 1 TABLET BY [facility] EVERY MORNING for 90 Active FreeStyle Lite Test - USE TO TEST BLOOD SUGAR ONCE DAILY for 50 Active Warfarin Sodium 5 MG ALTERNATING BETWEEN TAKING 1.5 TABLETS BY MOUTH EVERY DAY AND 2 TABLETS EVERY DAY DIRECTED for 115 Active Vitamin D 50 MCG (1999 UT) 1 capsule Orally Once a day for 30 day(s) Active Furosemide 20 MG TAKE 1 TABLET BY DC TH EVERY DAY for 90 Active Ativan 0.5 MG 1 tablet at bedtime as needed Orally Once a day for 30 days 06/21/2011 Not-Taking Aspirin Adult Low Strength 81 MG 1 tablet Orally Once a day for 30 day(s) Not-Taking Onglyza 5 MG 1 tablet Orally Once a day for 30 day(s) 06/13/2017 Not-Taking Januvia 50 MG as directed Orally O nce a day for 30 days 06/10/2017 Not-Taking Jardiance 25 MG 1 tablet Orally Once a day Not-Taking Immunizations Vaccine Route Administration Date Status Comme nts [...] Administer ed Flu Vaccine Unknown 12/01/2013 Pending Social History Tobacco Use: Social History Observation Description Date Details (start date - stop date) Never Smoker NA - NA Tobacco Use/Smoking Question Answer Notes Patient is a nonsmoker Additional Findings: Tobacco Non-User Cu rrent non-smoker, currently using no form of tobacco Alcohol Screen Question Answer Notes Did you have a drink containing alcohol in the p ast year? 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) Active confirmed Problem 43131475 Lumbar disc disease (M51.9) Active confirmed Problem 84803349 Essential hypertension (I10) Active confirmed Problem Long-term current use of anticoagulant (054151980) 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 (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.01) Active confirmed Problem Long-term current use of anticoagulant (479481222) 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 therapy (Z79.01) Active confirmed Problem 12118382 Type 2 diabetes mellitus with 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) Active confirmed Problem 290912275 Acute systolic congestive heart failure (I50.21) Active confirmed Problem Pressure injury (morphologic abnormality) (3361180158) Pressure sore (L89.90) Active confirmed Problem Long-term current use of anticoagulant (428177253) Encounter for current long-term use of anticoagulants (Z79.01) Active confirmed Problem 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 (D69.1) Active confirmed Problem 531525017 Temporary low platelet count (D69.6) Active confirmed Problem 928897329 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 Problem 35332687 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) Active confirmed Problem 57740501964524653 Pressure injur y of sacral region, unstageable (L89.150) Active confirmed Vital Signs Blood pressure diastolic 60 mm Hg 04/09/2024 Height 73.5 in 04/09/2024 Blood pressure systolic 112 mm Hg 04/09/2024 Weight 253 lbs 04/09/2024 BMI 32.92 kg/m2 04/09/2024 Encounters Encounter Location Date Provider Diagnosis Brody Goldberg MD [address] [place] [id number] 07/02/2023 Brody Goldberg Paroxysmal atrial fibrillation I48.0 and Encounter for current long-term use of anticoagulants Z79.01 Brody Goldberg MD [address] [place] [address] [id number] 07/16/2023 Brody Goldberg Encounter for curren t long-term use of anticoagulants Z79.01 Brody Goldberg MD [address] [place] [address] [id number] 07/30/2023 Brody Goldberg Paroxysmal atrial fibrillation I48.0 ; Encounter for current long-term use of anticoagulants Z79. and [facility] current use of anticoagulant therapy Z79. Brody Goldberg MD [address] [place] [address] [id number] 08/13/2023 Brody Bombardier Paroxysmal atrial fibrillation I48.0 and Encounter for current long-term use of anticoagulants Z79.01 Broyd Goldberg MD [address] [place] [address] [id number] 08/27/2023 Brody Bombardier Paroxysmal atrial fibrillation I48.0 and [facility] current use of anticoagulant Z79.01 Brody Goldberg MD [address] [place] [address] [id number] 09/10/2023 Brody Bombardier Paroxysmal atrial fibrillation I48.0 and 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 Z79.01 Brody Goldberg MD [address] [place] [address] [id number] 09/24/2023 Brody Bombardier Paroxysmal atrial fibrillation I48.0 and 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 Z79.01 Brody Goldberg MD [address] [place] [address] [id number] 09/30/2023 Brody Bombardier Mixed hyperlipidemia E78.2 ; 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 ; Thrombocytopenia D69.6 and Acute systolic congestive heart failure I50.21 Brody Goldberg MD [address] [place] [address] [id number] 10/22/2023 Brody Bombardier Paroxysmal atrial fibrillation I48.0 and 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 Z79.01 Brody Goldberg MD [address] [place] [address] [id number] 11/07/2023 Brody Bombardier Paroxysmal atrial fibrillation I48.0 and Encounter for current long-term use of anticoagulants Z79.01 Brody Goldberg MD [address] [place] [address] [id number] 11/19/2023 Brody Bombardier Paroxysmal atrial fibrillation I48.0 and Encounter for current long-term use of anticoagulants Z79.01 Brody Goldberg MD [address] [place] [address] [id number] 12/03/2023 Brody Bombardier Paroxysmal atrial fibrillation I48.0 ; Encounter for immunization Z23 and Encounter for current long-term use of anticoagulants Z79.01 Brody Goldberg MD [address] [place] [address] [id number] 12/17/2023 Brody Bombardier Paroxysmal atrial fibrillation I48.0 and Encounter for current long-term use of anticoagulants Z79.01 Brody Goldberg MD [address] [place] [address] [id number] 01/21/2024 Brody Bombardier Paroxysmal atrial fibrillation I48.0 and [facility] current use of anticoagulant Z79.01 Brody Goldberg MD [address] [place] [address] [id number] 02/04/2024 Brody Bombardier Paroxysmal atrial fibrillation I48.0 and [facility] current use of anticoagulant Z79.01 Brody Goldberg MD [address] [place] [address] [id number] 02/25/2024 Brody Bombardier Paroxysmal atrial fibrillation I48.0 and 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 Z79.01 Brody Goldberg MD [address] [place] [address] [id number] 03/12/2024 Brody Bombardier Paroxysmal atrial fibrillation I48.0 and 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 Z79.01 Brody Goldberg MD [address] [place] [address] [id number] 03/24/2024 Brody Bombardier Paroxysmal atrial fibrillation I48.0 and [facility] current use of anticoagulant therapy Z79.01 Brody Goldberg MD [address] [place] [address] [id number] 04/02/2024 Brody Bombardier Mixed hyperlipidemia E78.2 and 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 Brody Goldberg MD [address] [place] [address] [id number] 04/09/2024 Brody Bombardier Paroxysmal atrial fibrillation I48.0 and Encounter for current long-term use of anticoagulants Z79.01 Brody Goldberg MD [address] [place] [address] [id number] 06/30/2024 Brody Bombardier Paroxysmal atrial fibrillation I48.0 and Encounter for current long-term use of anticoagulants Z79.01 Brody Goldberg MD [address] [place] [address] [id number] 10/07/2023 Brody Bombardier Paroxysmal atrial fibrillation I48.0 ; 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 Z79.01 ; 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 ; Tubular adenoma D36.9 ; Mixed hyperlipidemia E78.2 ; Essential hypertension I10 ; Acute systolic congestive heart failure I50.21 ; Colon cancer screening Z12.11 and Encounter for screening for depression Z13.31 Brody Goldberg MD [address] [place] [address] [id number] 12/31/2023 Brody Goldberg Paroxysmal atrial fibrillation I48.0 and Encounter for current long-term use of anticoagulants Z79.01 Brody Goldberg MD [address] [place] [address] [id number] 01/07/2024 Brody Goldberg Paroxysmal atrial fibrillation I48.0 and Encounter for current long-term use of anticoagulants Z79.01 Brody Goldberg MD [address] [facility] [address] [id number] 04/09/2024 Brody Goldberg Paroxysmal atrial fibrillation I48.0 ; 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 ; Pressure injury of sacral region, 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 and Mixed hyperlipidemia E78.2 Brody Goldberg MD [address] [place] [address] [id number] 03/24/2024 Brody Goldberg Pressure sore L89.90 Brody Goldberg MD [address] [id number] 06/18/2024 Brody Goldberg MD [address] [place] [address] [address] [id number] 11/05/2023 Brody Goldberg MD [address] [place] [address] [id number] 02/25/2024 Brody Goldberg MD [address] [place] [address] [address] [id number] 06/05/2024 Brody Goldberg Assessments Encounter Date Diagnosis (ICD Code) Assessment Notes Treatment Notes Treatment Clinical Notes Section Notes 07/02/2023 Paroxysmal atrial fibrillation (ICD-10 - I48.0) 07/02/2023 Encounter for current long-term use of anticoagulants (ICD-10 - Z79.01) 07/16/2023 Encounter for current long-term use of anticoagulants (ICD-10 - Z79.01) 07/30/2023 Paroxysmal atrial fibrillation (ICD-10 - I48.0) 07/30/2023 Encounter for current long-term use of anticoagulants (ICD-10 - Z79.01) 08/13/2023 Paroxysmal atrial fibrillation (ICD-10 - I48.0) 08/13/2023 Encounter for current long-term use of anticoagulants (ICD-10 - Z79.01) 08/27/2023 Paroxysmal atrial fibrillation (ICD-10 - I48.0) 08/27/2023 [facility] current use of anticoagulant (ICD-10 - Z79.01) 09/10/2023 Paroxysmal atrial fibrillation (ICD-10 - I48.0) 09/10/2023 [facility] current use of anticoagulant (ICD-10 - Z79.01) 09/24/2023 Paroxysmal atrial fibrillation (ICD-10 - I48.0) 09/24/2023 [facility] current use of anticoagulant (ICD-10 - Z79.01) 09/30/2023 Mixed hyperlipidemia (ICD-10 - E78.2) 09/30/2023 Type 2 diabetes mellitus with diabetic neuropathy (ICD-10 - E11.40) 10/22/2023 Paroxysmal atrial fibrillation (ICD-10 - I48.0) 10/22/2023 [facility] current use of anticoagulant (ICD-10 - Z79.01) 11/07/2023 Paroxysmal atrial fibrillation (ICD-10 - I48.0) 11/07/2023 Encounter for current long-term use of anticoagulants (ICD-10 - Z79.01) 11/19/2023 Paroxysmal atrial fibrillation (ICD-10 - I48.0) 11/19/2023 Encounter for current long-term use of anticoagulants (ICD-10 - Z79.01) 12/03/2023 Paroxysmal atrial fibrillation (ICD-10 - I48.0) 12/03/2023 Encounter for immunization (ICD-10 - Z23) 12/17/2023 Paroxysmal atrial fibrillation (ICD-10 - I48.0) 12/17/2023 Encounter for current long-term use of anticoagulants (ICD-10 - Z79.01) 01/21/2024 Paroxysmal atrial fibrillation (ICD-10 - I48.0) 01/21/2024 [facility] current use of anticoagulant (ICD-10 - Z79.01) 02/04/2024 Paroxysmal atrial fibrillation (ICD-10 - I48.0) 02/04/2024 [facility] current use of anticoagulant (ICD-10 - Z79.01) 02/25/2024 Paroxysmal atrial fibrillation (ICD-10 - I48.0) 02/25/2024 [facility] current use of anticoagulant (ICD-10 - Z79.01) 03/12/2024 Paroxysmal atrial fibrillation (ICD-10 - I48.0) 03/12/2024 [facility] current use of anticoagulant (ICD-10 - Z79.01) 03/24/2024 Paroxysmal atrial fibrillation (ICD-10 - I48.0) 03/24/2024 [facility] current use of anticoagulant therapy (ICD-10 - Z79.01) 04/02/2024 Mixed hyperlipidemia (ICD-10 - E78.2) 04/02/2024 Type 2 diabetes mellitus with diabetic neuropathy (ICD-10 - E11.40) 04/09/2024 Paroxysmal atrial fibrillation (ICD-10 - I48.0) 04/09/2024 Encounter for current long-term use of anticoagulants (ICD-10 - Z79.01) 06/30/2024 Paroxysmal atrial fibrillation (ICD-10 - I48.0) 10/07/2023 Paroxysmal atrial fibrillation (ICD-10 - I48.0) not having any problems, will continue current regiment 10/07/2023 [facility] current use of anticoagulant (ICD-10 - Z79.01) stable, will continue current regiment 12/31/2023 Paroxysmal atrial fibrillation (ICD-10 - I48.0) 12/31/2023 Encounter for current long-term use of anticoagulants (ICD-10 - Z79.01) 01/07/2024 Paroxysmal atrial fibrillation (ICD-10 - I48.0) 01/07/2024 Encounter for current long-term use of anticoagulants (ICD-10 - Z79.01) 04/09/2024 Paroxysmal atrial fibrillation (ICD-10 - I48.0) doing well with coumadin, will continue current regiment 04/09/2024 Type 2 diabetes mellitus with diabetic neuropathy (ICD-10 - E11.40) a1c stable, will continue current regiment 03/24/2024 Pressure sore (ICD-10 - L89.90) 07/30/2023 [facility] current use of anticoagulant therapy (ICD-10 - Z79.01) 09/30/2023 Thrombocytopenia (ICD-10 - D69.6) 12/03/2023 Encounter for current long-term use of anticoagulants (ICD-10 - Z79.01) 06/30/2024 Encounter for current long-term use of anticoagulants (ICD-10 - Z79.01) 10/07/2023 Type 2 diabetes mellitus with diabetic neuropathy (ICD-10 - E11.40) seeing endocrine, will continue current regiment 04/09/2024 Pressure injury of sacral region, unstageable (ICD-10 - L89.150) 09/30/2023 Acute systolic congestive heart failure (ICD-10 - I50.21) 10/07/2023 Tubular adenoma (ICD-10 - D36.9) talked about need for colonoscopy 04/09/2024 Mixed hyperlipidemia (ICD-10 - E78.2) stable, will continue current regiment 10/07/2023 Mixed hyperlipidemia (ICD-10 - E78.2) stable, will continue current regiment 10/07/2023 Essential hypertension (ICD-10 - I10) stable, will continue current regiment 10/07/2023 Acute systolic congestive heart failure (ICD-10 - I50.21) doing well, will continue current regiment 10/07/2023 Colon cancer screening (ICD-10 - Z12.11) guaiac negative 10/07/2023 Encounter for screening for depression (ICD-10 - Z13.31) negative screen Plan Of Treatment Pending Test Test Name Order Date CT SINUS W&WO CONTRAST 12/08/2012 Next Appt Details Provider Name:Brody velarde, 10/01/2024 08:00:00 AM, [address] [place] [address], [address], [phone], Provider Name:Brody reyesr, 10/08/2024 11:00:00 AM, [address] [place] [address], [place] [address], [place], [place], [phone], Insurance Providers Payer Name Payer Address Payer Phone Subscriber Number Group Number Insured Name Patient Relationship to Insured Coverage Start Date Coverage End Date [employer] [address] [place] [address] [id number] Jayy Rodriguez Self - patient is the insured 3 [employer] [place] [place] [address] [place] [address] [id number] Jayy Rodriguez Self - patient is the insured Medical (General) History Medical History History ICD Code prediabetes in 2008 tubular adenoma at colonosco py 2005; colonoscopy 09/11/13 - repeat 5 years not sure if he is going to have another 2020 myalgia on rosuvastatin 2022 says he is no further colonoscopies . knows that he had a lot of polyps
--- OUTSIDE RECORDS SUMMARY | 2024-06-30 12:37 | XMS_ITS ---
Author Organization Brody Goldberg MD Address [address] [place] [phone] Care Team Providers Care Hand Tire Trimmer Name Role Phone Brody Goldberg Primary Care Provider Results Component Value Reference Range Notes Prothrombin Time INR Reviewed date:06/30/2024 11:32:00 AM Interpretation: Performing Lab:[facility], [address] [place] [phone] Notes/Report: Prothrombin Time 35.1 10.9-12.4 SEC INTERNATIONAL [...] 1 tablet Orally Once a day Active Warfarin Sodium 5 MG ALTERNATING BETWEEN TAKING 1.5 TABLETS BY MOUTH EVERY DAY AND 2 TABLETS EVERY DAY DIRECTED for 115 Active Furosemide 20 MG TAKE 1 TABLET BY DC TH EVERY DAY for 90 Active HumaLOG KwikPen 100 UNIT/ML 8 units three times a day Active Mupirocin 2 % 1 application Remote Control Assembler ally Twice a day for 5 day(s) 03/28/2021 Active diazePAM 5 MG (Schedule IV Drug) T KVNG ONE TABLET BY MOUTH EVERY 6 HOURS NEEDED FOR MUSCLE SPASM Oral for 3 Not-Taking Diprolene AF 0.05 % 1 application Remote Control Assembler ally Once a day for 30 days 02/23/2019 Not-Takin g Atenolol 50 MG TAKE 2 TABLETS BY MO UT TWICE DAILY for 90 Active PARoxetine HCl 20 MG TAKE 1 TABLET BY MO UT EVERY MORNING for 90 Active FreeStyle Lite Test - USE TO TEST BLOOD SUGAR ONCE DAILY for 50 Active Vitamin D 50 MCG (1999) 1 capsule Orally Once a day for 30 day(s) Active Ativan 0.5 MG 1 tablet at bedtime as needed Orally Once a day for 30 days 06/21/2011 Not-Taking Aspirin Adult Low Strength 81 MG 1 tablet Orally Once a day for 30 day(s) Not-Taking Jardiance 25 MG 1 tablet Orally Once a day Not-Taking Onglyza 5 MG 1 tablet Orally Once a day for 30 day(s) 06/13/2017 Not-Taking Januvia 50 MG as directed Orally O nce a day for 30 days 06/10/2017 Not-Taking Encounters Encounter Location Date Provider Diagnosis Brody Goldberg MD [address] [place] [address] [address] [place], [place] [phone] 06/30/2024 Brody Goldberg Paroxysmal atrial fibrillation I48.0 and Encounter for current long-term use of anticoagulants Z79.01 Assessments Encounter Date Diagnosis (ICD Code) Assessment Notes Treatment Notes Treatment Clinical Notes Section Notes 06/30/2024 Paroxysmal atrial fibrillation (ICD-10 - I48.0) 06/30/2024 Encounter for current long-term use of anticoagulants (ICD-10 - Z79.01) Plan Of Treatment Next Appt Details Provider Name:Brody velarde, 10/01/2024 08:00:00 AM, [address] [place] [address], [address], [place], [place], [phone], Provider Name:Brody reyesr, 10/08/2024 11:00:00 AM, [address] [facility], [address], [place], [place], [phone], Progress Notes * Jayy RODRIGUEZ LDOB:1945 ([age] yo M)Acc No.[id number]:06/30/2024 Progress Note Patient:?Jayy RODRIGUEZ Provider:?Brody Goldberg MD :1945???Age:78 Y???Sex:Male Alexey e:06/30/2024 Address:[address] [place], [place] [phone] Subjective: * Chief Complaints: * ???1. INR. * Medical History:? * Medications:?Taking Vitamin D 50 MCG (1999 UT) Capsule 1 capsule Orally Once a day , Taking FreeStyle Lite Test - Strip USE TO TEST BLOOD SUGAR ONCE DAILY , Taking PARoxetine HCl 20 MG Tablet [...] units Qpm once a day , Taking Losartan Potassium-HCTZ 100-25 MG Tablet TAKE 1 TABLET BY MOUTH EVERY DAY , Taking Furosemide 20 MG Tablet TAKE 1 TABLET BY MOUTH EVERY DAY , Taking Warfarin Sodium 5 MG Tablet ALTERNATING BETWEEN TAKING 1.5 TABLETS BY MOUTH EVERY DAY AND 2 TABLETS EVERY DAY DIRECTED , Not-Taking/PRN Jardiance 25 MG Tablet 1 tablet Orally Once a day , Not-Taking/PRN Januvia 50 MG Tablet as directed Orally [...] Time INR (Collection Date & Time - 06/30/2024 09:15 AM) * * The named appointment provid er may or may not be the originator of this progress note, and it is not deemed complete until electronically signed by the appointment provider. Sign off status: Pending * Provider:?Brody Goldberg MD Date:?0 06/30/2024 Generated for Doron granados/Quang/Pauline on:?06/30/2024 12:36 PM EDT
--- OUTSIDE RECORDS SUMMARY | 2024-06-30 12:37 | XMS_ITS ---
Author Organization Brody Goldberg MD Address [address] [place] [phone] Care Team Providers Care Fast Food Attendant Name Role Phone Brody Goldberg Primary Care Provider REASON FOR VISIT INR repeat Encounters Encounter Location Date Provider Diagnosis Brody Goldberg MD [address] [facility] [address] [place] [phone] 06/18/2024 Brody Goldberg Plan Of Treatment Next Appt Details Provider Name:Brody Parikh iemiller, 10/01/2024 08:00:00 AM, [address] [place] [address], [address], [phone], Provider Name:Brody Parikh iemiller, 10/08/2024 11:00:00 AM, [address] [place] [address], [address], [phone], Progress Notes * Jayy RODRIGUEZ LDOB:1945 ([age] yo M)Acc No.[id number]:06/18/2024 Patient:?Jayy RODRIGUEZ :1945???Age:78 Y???Sex:Male Address:[address] [place] [address] * true * Date:? Generated for Doron granados/Quang/Kyitting on:?06/30/2024 12:36 PM EDT
== END 2024-06-30 10:29 | disposition home or self-care (01) ==
LOC: HO.LNP 10:28
PROVIDERS: Visit Provider Internal Medicine
DX: I48.0 Paroxysmal atrial fibrillation (principal); Z79.01 Long term (current) use of anticoagulants
CPT/HCPCS: 85610

== ENCOUNTER 2024-07-13 11:24 | Outpatient (AMB) | payer MEDICARE, SELFPAY ==
--- NOTE | 2024-07-13 11:26 | MHC.OFFVIS ---
Vital Signs 07/13/24 11:44 Height 6 ft 2 in Weight 247 lb BMI 31.7 BP 126/56 L Blood Pressure Location Rt brachial Position Sitting Pulse 60 Pulse Source Pulse Oximeter Pulse Oximetry (%) 93 Oxygen Delivery Method Room Air Intake Visit Reasons: fatty liver Intake Note: NEW PATIENT for fatty liver eval. Due for colo. Prior hx of colo/egd? 2013 w/ Dr. Arvizu. 2009 pancreatitis laparascopic Chief Complaint; Pt denies any GI sx at this time. Pt was somewhat unsure on the purpose of this appt. When asked, pt is quite against the concept of having another colonoscopy but will be willing to discuss with provider. Manager Programs Required: No Accompanied by: Spouse Allergies lisinopril Adverse Reaction (Verified 03/16/24 10:29) Cough metformin Adverse Reaction (Verified 03/16/24 10:29) Diarrhea HPI HPI fatty liver: Details: 78 years old male with past medical history of diabetes, obesity, metabolic dysfunction associated steatotic liver disease, varicose veins of left lower extremity, hyperlipidemia, hypertension is here today for initial consultation. Patient was sent to us by his sewage plant attendant. Fib 4 score was 2.85. Today calculation according to recent lab work: 3.67?points Advanced fibrosis (METAVIR stage F3-F4) likely (Ramakrishna 2017) Patient reports that he does not know why he is here and weight is appointment was made for him. Patient is accompanied by his . Patient reports that he was not aware that he had a fatty liver long history of low platelets with normal H&H and liver enzymes as well as normal alk phosphate. Patient reports that he does not drink alcohol. No family history of liver disease or liver cirrhosis. Patient had colonoscopy in [address] Arvizu. Patient reports that he no longer wishes to have surveillance. Patient has a history of tubular adenoma and Cologuard is not recommended in his case. [facility] Medical History (Updated 07/13/24 @ 13:34 by Chrissy Walker [facility]) Thrombocytopenia Type 2 diabetes mellitus Obesity (BMI 30.0-34.9) Metabolic dysfunction-associated steatotic liver disease (MASLD) Vitamin D deficiency Pancreatitis Afib Lower extremity edema HLD (hyperlipidemia) HTN (hypertension) Surgical History History of Mohs surgery for squamous cell carcinoma of skin Hx of sinus surgery Previous back surgery History of cholecystectomy Family History Father No problems noted. Mother No problems noted. Social History Alcohol intake: never Patient Tobacco Use Status: Never used Tobacco Current occupational status: unemployed Review of Systems Const Denies weight gain and Denies weight loss ENT Reports no additional complaints, Denies dysphagia and Denies odynophagia Card Reports no additional complaints Resp Reports no additional complaints GI Denies abdominal pain, Denies belching, Denies melena, Denies bloating, Denies change in bowel habits, Denies dysphagia, Denies excessive flatus, Denies dyspepsia, Denies heartburn, Denies diarrhea, Denies loose stools, Denies nausea, Denies odynophagia and Denies vomiting Reports no additional complaints Musc Reports no additional complaints Neuro Reports no additional complaints Psych Reports no additional complaints Endo Reports no additional complaints Physical Exam Vital Signs: Last Vital Signs Pulse 60 07/13/24 11:44 BP 126/56 L 07/13/24 11:44 Pulse Ox 93 07/13/24 11:44 Oxygen Delivery Method Room Air 07/13/24 11:44 BMI result Body Mass Index 31.7 Const General: healthy appearing, no acute distress and well developed Nutritional Appearance: well nourished and obese Orientation/consciousness: patient oriented x3 Resp Effort & Inspection: normal respiratory effort, able to speak in complete sentences, no tracheal deviation and symmetric chest movement Auscultation: clear to auscultation bilaterally Cardio Rate: regular rate GI Inspection: Yes normal to inspection, No distended and Yes obesity Palpation (GI): Soft to palpation, not firm, nontender and No hepatosplenomegaly present Auscultation: normal bowel sounds General: Yes no CVA tenderness Back/Spine/Pelvis Back: no CVA tenderness Skin General skin exam: elasticity normal, turgor normal and dry skin Neuro General: patient oriented x3 Psych Appearance: grossly normal Mental Status: mental status grossly normal Assessment & Plan Assessment & Plan (1) Metabolic dysfunction-associated steatotic liver disease (MASLD): Code(s): K76.0 - Fatty (change of) liver, not elsewhere classified Category: Medical (2) Thrombocytopenia: Code(s): D69.6 - Thrombocytopenia, unspecified Category: Medical (3) Macrocytosis: Code(s): D75.89 - Other specified diseases of blood and blood-forming organs Plan Thrombocytopenia without pancytopenia, macrocytosis. Patient will be sent for abdominal ultrasound to rule out splenomegaly, hepatomegaly, hepatic steatosis, we will check liver elastography. Currently his F4 score is 3.64 which puts him in advance fibrosis F3/F4. Patient reports he is not drinking any alcohol. Discussed with him weight loss and follow low fat, low salt, low carb a high-protein diet. If the spleen is normal we can send patient to see Hematology. Will rule out out immune disorders that could cause liver disease. Patient knows that he will get a phone call with results from the ultrasound and lab work might be order pending the results. Noted the patient last colonoscopy was in 2013. History of tubular adenoma not recommending Cologuard as most likely will be positive. Patient does not want to have a colonoscopy. Patient reports that he is too old and will not agree. He will follow-up in the office in 6 months, sooner on as needed basis. He is agreeable to this plan and verbalizes understanding of instructions. He was given the opportunity to ask questions and all questions answered. Thank you for allowing me to participate in his care Orders: Orders US abdomen comp w elastography Today R79.89 - Other specified abnormal findings of blood chemistry Coding Level of Care Code New Pt Level 3 (79563) Diagnoses Metabolic dysfunction-associated steatotic liver disease (MASLD) K76.0 Thrombocytopenia D69.6 Macrocytosis D75.89 Time Spent (min) 40 Comment 30 minutes spent with patient and additional 10 minutes spent reviewing her records
[2024-07-13 11:44] VITALS: BP 126/56; PULSE 60; O2SAT 93; BMI 31.7
== END 2024-07-13 12:10 | disposition home or self-care (01) ==
LOC: HO.HGI 11:25
PROVIDERS: PCP Internal Medicine; Visit Provider Nurse Practitioner Family
DX: K76.0 Fatty (change of) liver, not elsewhere classified (principal); D69.6 Thrombocytopenia, unspecified; D75.89 Other specified diseases of blood and blood-forming organs
CPT/HCPCS: 99203

== ENCOUNTER → 2024-07-13 11:24 | Outpatient (BNVA) | payer MEDICARE, SELFPAY | PROVIDERS: PCP Internal Medicine; Visit Provider Nurse Practitioner Family | DX: K76.0 Fatty (change of) liver, not elsewhere classified (principal); D69.6 Thrombocytopenia, unspecified; D75.89 Other specified diseases of blood and blood-forming organs | CPT/HCPCS: 99202 ==

== ENCOUNTER 2024-07-14 11:15 | Outpatient (REF) | payer MEDICARE, SELFPAY ==
[2024-07-14 11:50] LABS: INTERNATIONAL NORM RATIO 2.2 (0.9-1.1); Prothrombin Time 25.2 SEC (10.9-12.4)
== END 2024-07-14 11:16 | disposition home or self-care (01) ==
LOC: HO.LNP 11:15
PROVIDERS: Visit Provider Internal Medicine
DX: I48.0 Paroxysmal atrial fibrillation (principal); Z79.01 Long term (current) use of anticoagulants
CPT/HCPCS: 85610

== ENCOUNTER 2024-07-28 10:33 | Outpatient (REF) | payer MEDICARE, SELFPAY ==
[2024-07-28 11:16] LABS: INTERNATIONAL NORM RATIO 2.4 (0.9-1.1); Prothrombin Time 27.8 SEC (10.9-12.4)
--- OUTSIDE RECORDS SUMMARY | 2024-07-28 11:43 | XMS_ITS ---
Author Organization Brody Goldberg MD Address [address] [place] [phone] Care Team Providers Care Multi Township Assessor Name Role Phone Brody Goldberg Primary Care Provider Results Component Value Reference Range Notes Prothrombin Time INR Reviewed date:07/14/2024 12:30:07 PM Interpretation: Performing Lab:[facility], [address] [place] [phone] Notes/Report: Prothrombin Time 25.2 10.9-12.4 SEC INTERNATIONAL NORM RATIO 2.2 0.9-1.1 [...] Brody Goldberg MD [address] [place] [phone] 07/14/2024 Brody Goldberg Paroxysmal atrial fibrillation I48.0 and Encounter for current long-term use of anticoagulants Z79.01 Assessments Encounter Date Diagnosis (ICD Code) Assessment Notes Treatment Notes Treatment Clinical Notes Section Notes 07/14/2024 Paroxysmal atrial fibrillation (ICD-10 - I48.0) 07/14/2024 Encounter for current long-term use of anticoagulants (ICD-10 - Z79.01) Plan Of Treatment Next Appt Details Provider Name:Brody reyesr, 10/01/2024 08:00:00 AM, [address] [facility], Suite [facility], [place], [place], [phone], Provider Name:Brody Parikh ier, 10/08/2024 11:00:00 AM, [address] [facility], [address], [place], [place], [phone], Progress Notes * Jayy RODRIGUEZ LDOB:1945 ([age] yo M)Acc No.[id number]:07/14/2024 Progress Note Patient:?Jayy RODRIGUEZ Provider:?Brody Goldberg MD :1945???Age:78 Y???Sex:Male Alexey e:07/14/2024 Address:[address] [place], [place] [phone] Subjective: * Chief Complaints: * ???1. INR. * Medical History:? Objective: * Vitals:? Assessment: * Assessment: 1.?Paroxysmal atrial fibrill ation - I48.0 (Primary)???2.?Encounter for current long-term use of anticoagulants - Z79.01??? Plan: * Treatment: 2.?Encounter for current vannesa g-term use of anticoagulants?LAB: Prothrombin Time INR (Collection Date & Time - 07/14/2024 09:15 AM) * Procedure Codes:?70724 VENIP UNCT, ROUTINE* * * The named appointment provid er may or may not be the originator of this progress note, and it is not deemed complete until electronically signed by the appointment provider. Sign off status: Pending * Provider:?Brody Goldberg MD Date:?0 07/14/2024 Generated for Mariposai roberta/Tinyg/eTransmitting on:?07/28/2024 11:43 AM EDT
--- OUTSIDE RECORDS SUMMARY | 2024-07-28 11:44 | XMS_ITS ---
Author Organization Brody Goldberg MD Address [address] [place] [phone] Care Team Providers Care Visual Aid Expert Name Role Phone Brody Goldberg Primary Care Provider Results Component Value Reference Range Notes Prothrombin Time INR Reviewed date:07/28/2024 11:29:24 AM Interpretation: Performing Lab:[facility], [address] [place] [phone] Notes/Report: Prothrombin Time 27.8 10.9-12.4 SEC INTERNATIONAL [...] INR Encounters Encounter Location Date Provider Diagnosis rBody Goldberg MD [address] [place] [phone] 07/28/2024 Brody Godlberg Paroxysmal atrial fibrillation I48.0 and Encounter for current long-term use of anticoagulants Z79.01 Assessments Encounter Date Diagnosis (ICD Code) Assessment Notes Treatment Notes Treatment Clinical Notes Section Notes 07/28/2024 Paroxysmal atrial fibrillation (ICD-10 - I48.0) 07/28/2024 Encounter for current long-term use of anticoagulants (ICD-10 - Z79.01) Plan Of Treatment Next Appt Details Provider Name:Brody reyesr, 10/01/2024 08:00:00 AM, [address] [facility], Suite [facility], [place], [place], [phone], Provider Name:Brody Parikh ier, 10/08/2024 11:00:00 AM, [address] [facility], [address], [place], [place], [phone], Progress Notes * Jayy RODRIGUEZ LDOB:1945 ([age] yo M)Acc No.[id number]:07/28/2024 Progress Note Patient:?Jayy RODRIGUEZ Provider:?Brody Goldberg MD :1945???Age:78 Y???Sex:Male Alexey e:07/28/2024 Address:[address] [place], [place] [phone] Subjective: * Chief Complaints: * ???1. INR. * Medical History:? Objective: * Vitals:? Assessment: * Assessment: 1.?Paroxysmal atrial fibrill ation - I48.0 (Primary)???2.?Encounter for current long-term use of anticoagulants - Z79.01??? Plan: * Treatment: 2.?Encounter for current vannesa g-term use of anticoagulants?LAB: Prothrombin Time INR (Collection Date & Time - 07/28/2024 08:45 AM) * Procedure Codes:?71269 VENIP UNCT, ROUTINE* * * The named appointment provid er may or may not be the originator of this progress note, and it is not deemed complete until electronically signed by the appointment provider. Sign off status: Pending * Provider:?Brody Goldberg MD Date:?0 07/28/2024 Generated for Mariposai ng/Fadaphneg/eTransmitting on:?07/28/2024 11:43 AM EDT
--- OUTSIDE RECORDS SUMMARY | 2024-07-28 11:44 | XMS_ITS ---
Author Organization Brody Goldberg MD Address [address] [place] [phone] Care Team Providers Care Latex Caster Name Role Phone Brody Goldberg Primary Care Provider Results Component Value Reference Range Notes Prothrombin Time INR Reviewed date:06/30/2024 11:32:00 AM Interpretation: Performing Lab:[facility], [address] [place] [phone] Notes/Report: Prothrombin Time 35.1 10.9-12.4 SEC INTERNATIONAL [...] day Active Mupirocin 2 % 1 application Mfts ally Twice a day for 5 day(s) 03/28/2021 Active diazePAM 5 MG (Schedule IV Drug) T KVNG ONE TABLET BY MOUTH EVERY 6 HOURS NEEDED FOR MUSCLE SPASM Oral for 3 Not-Taking Diprolene AF 0.05 % 1 application Mfts ally Once a day for 30 days [...] Location Date Provider Diagnosis Brody Goldberg MD [address] [place] [address] [address] [place], [place] [phone] 06/30/2024 Brody Goldberg Paroxysmal atrial fibrillation I48.0 and Encounter for current long-term use of anticoagulants Z79.01 Assessments Encounter Date Diagnosis (ICD Code) Assessment Notes Treatment Notes Treatment Clinical Notes Section Notes 06/30/2024 Paroxysmal atrial fibrillation (ICD-10 - I48.0) 06/30/2024 Encounter for current long-term use of anticoagulants (ICD-10 - Z79.01) Plan Of Treatment Next Appt Details Provider Name:Brody velarde, 10/01/2024 08:00:00 AM, [address] [place] [address], [address], [place], [place], [phone], Provider Name:Brody reyesr, 10/08/2024 11:00:00 AM, [address] [facility], [address], [place], [place], [phone], Progress Notes * Jayy RODRIGUEZ LDOB:1945 ([age] yo M)Acc No.[id number]:06/30/2024 Progress Note Patient:?Jayy RODRIGUEZ Provider:?Brody Goldberg MD :1945???Age:78 Y???Sex:Male Alexey e:06/30/2024 Address:[address] [place], [place] [phone] Subjective: * Chief Complaints: * ???1. INR. [...] & Time - 06/30/2024 09:15 AM) * Procedure Codes:?17084 VENIP UNCT, ROUTINE* * * The named appointment provid er may or may not be the originator of this progress note, and it is not deemed complete until electronically signed by the appointment provider. Sign off status: Pending * Provider:?Brody Goldberg MD Date:?0 06/30/2024 Generated for Doron granados/Quang/Kyitting on:?07/28/2024 11:44 AM EDT
--- OUTSIDE RECORDS SUMMARY | 2024-07-28 11:44 | XMS_ITS | Patient Health Record ---
Author Organization Brody Goldberg MD Address [address] [place], [place] [id number] Care Team Providers Care Excel Expert Name Role Phone Brody Goldberg Primary Care Provider Allergies Allergen (clinical drug ingredient) Drug/Non Drug Allergy documented on EMR Reaction Allergy Type Onset Date Status metformin Metformin HCl diarrhea Drug Allergy Act enzo lisinopril Lisinopril couigh Drug Allergy Activ e Results Component Value Reference Range Notes Prothrombin Time INR Reviewed date:07/30/2023 12:41:13 PM Interpretation: Performing Lab:[address] [phone] Notes/Report: Prothrombin Time 27.0 11.1-13.3 SEC INTERNATIONAL [...] INR Reviewed date:08/13/2023 11:38:41 AM Interpretation: Performing Lab:[address] [phone] Notes/Report: Prothrombin Time 28.5 11.1-13.3 SEC INTERNATIONAL [...] INR Reviewed date:08/27/2023 11:27:23 AM Interpretation: Performing Lab:[facility], [address] [place] [phone] Notes/Report: Prothrombin Time 32.3 11.1-13.3 SEC INTERNATIONAL [...] INR Reviewed date:09/10/2023 12:34:36 PM Interpretation: Performing Lab:[facility], [address] [place] [phone] Notes/Report: Prothrombin Time 34.1 11.1-13.3 SEC INTERNATIONAL [...] INR Reviewed date:09/24/2023 12:56:05 PM Interpretation: Performing Lab:[facility], [address] [place] [phone] Notes/Report: Prothrombin Time 30.7 11.1-13.3 SEC INTERNATIONAL [...] ff Reviewed date:09/30/2023 12:39:19 PM Interpretation: Performing Lab:[facility], [address] [place] [phone] Notes/Report: White Blood Count 8.1 4.8-10.8 X10*3/uL [...] Microscopic Reviewed date:09/30/2023 05:57:39 PM Interpretation: Performing Lab:[facility], [address] [place] [phone] Notes/Report: Color Urine Yellow Appearance Urine Clear PH 6.0 5.0-9.0 Glucose Urine UA Negative Negative mg/dL Urine Blood Negative Negative Specific [place] - Urine 1.020 1.005-1.025 Urine Protein Negative Neg-Trace mg/dL Urine Ketones Negative Negative mg/dL Nitrite Urine Negative Negative Leukocyte Esterase Urine Negative Negative RBC Urine 0-2 0-2 /HPF WBC Urine 0-5 0-5 /HPF Squamous Epithelial Cell Urine 0-2 0-2 /HPF Bacteria Urine None Seen None Seen Hyaline Casts Urine 0-2 0-2 /LPF Comprehensive [place]. Panel Fa Reviewed date:09/30/2023 06:19:38 PM Interpretation: Performing Lab:[facility], [address] [place] [phone] Notes/Report: Sodium 143 135-145 mmol/L Potassium 4.3 3.3-5.1 mmol/L Chloride 105 96-108 mmol/L Carbon Dioxide 30 22-29 mmol/L Anion Gap 12 12-20 Blood Urea Nitrogen 25 9-16 mg/dL Creatinine 0.91 0.5-1.4 mg/dL Estimated Glomerular Filt Rate > 60 NOTE: For -Macedonian individuals, multiply the result by 1.210. Chronic [...] Panel Reviewed date:09/30/2023 12:39:39 PM Interpretation: Performing Lab:[address] [phone] Notes/Report: Triglycerides 198 <150 mg/dL Desirable Triglyceride: [...] (Free>4and<10) Reviewed date:09/30/2023 12:37:03 PM Interpretation: Performing Lab:[address] [phone] Notes/Report: PSA,Total (Free>4and<10) 1.16 0.00-4.00 ng/mL A [...] Random Reviewed date:09/30/2023 12:37:57 PM Interpretation: Performing Lab:[facility], [address] [place] [phone] Notes/Report: Creatinine Urine 135.02 Microalbumin Urine 26.0 Microalbum/Creatinine Ratio Ur 19.2 <30 ug/mg cr Albumin/Creatinine Ratio Reference Ranges: Normal: < 30 ug/mg creatinine Microalbuminuria: 30 - 300 ug/mg creatinine Clinical Albuminuria: > 300 ug/mg creatinine Hemoglobin A1c Reviewed date:09/30/2023 02:07:09 PM Interpretation: Performing Lab:[facility], [address] [place] [phone] Notes/Report: Hemoglobin A1c % 7.2 <6.0 % [...] average glucose, using the formula of the T3B-Rhatsdy Average Glucose study (ADAG), Diabetes Care, Vol.31,#8, Oct. 2007 Prothrombin Time INR Reviewed date:10/22/2023 12:23:47 PM Interpretation: Performing Lab:[facility], [address] [place] [phone] Notes/Report: Prothrombin Time 37.2 11.1-13.3 SEC INTERNATIONAL [...] INR Reviewed date:11/07/2023 12:43:56 PM Interpretation: Performing Lab:[facility], [address] [place] [phone] Notes/Report: Prothrombin Time 37.5 11.1-13.3 SEC INTERNATIONAL [...] INR Reviewed date:11/19/2023 12:00:58 PM Interpretation: Performing Lab:[facility], [address] [place] [phone] Notes/Report: Prothrombin Time 34.9 11.1-13.3 SEC INTERNATIONAL [...] INR Reviewed date:12/03/2023 12:04:42 PM Interpretation: Performing Lab:[facility], [address] [place] [phone] Notes/Report: Prothrombin Time 23.3 11.1-13.3 SEC INTERNATIONAL [...] INR Reviewed date:12/17/2023 12:24:57 PM Interpretation: Performing Lab:[facility], [address] [place] [phone] Notes/Report: Prothrombin Time 27.8 10.9-12.4 SEC INTERNATIONAL [...] INR Reviewed date:01/21/2024 12:49:48 PM Interpretation: Performing Lab:[facility], [address] [place] [phone] Notes/Report: Prothrombin Time 31.9 10.9-12.4 SEC INTERNATIONAL [...] INR Reviewed date:02/17/2024 08:32:12 AM Interpretation: Performing Lab:[facility], [address] [place] [phone] Notes/Report: Prothrombin Time 20.5 10.9-12.4 SEC INTERNATIONAL [...] INR Reviewed date:02/25/2024 12:31:15 PM Interpretation: Performing Lab:[facility], [address] [place] [phone] Notes/Report: Prothrombin Time 26.0 10.9-12.4 SEC INTERNATIONAL [...] INR Reviewed date:03/12/2024 12:34:57 PM Interpretation: Performing Lab:[address] [phone] Notes/Report: Prothrombin Time 32.7 10.9-12.4 SEC INTERNATIONAL [...] INR Reviewed date:03/24/2024 12:22:39 PM Interpretation: Performing Lab:[address] [phone] Notes/Report: Prothrombin Time 25.6 10.9-12.4 SEC INTERNATIONAL [...] Panel Reviewed date:04/02/2024 05:16:30 PM Interpretation: Performing Lab:[address] [phone] Notes/Report: Bilirubin Total 0.5 0.0-1.0 mg/dL Bilirubin Direct 0.2 0.0-0.5 mg/dL Aspartate Amino Transferase 24 5-37 U/L Alanine Aminotransferase 18 0-40 U/L Total Protein 7.3 6.5-8.0 g/dL Albumin Level 4.1 3.5-5.0 g/dL Alkaline Phosphatase 65 39-117 U/L Glucose Fasting Reviewed date:04/02/2024 05:15:41 PM Interpretation: Performing Lab:[facility], [address] [place] [phone] Notes/Report: Glucose Fasting 153 60-99 mg/dL A fasting glucose of 126 mg/dl or greater on more than one occasion is considered diagnostic of diabetes. Lipid Panel with Reflex Reviewed date:04/02/2024 05:16:03 PM Interpretation: Performing Lab:[facility], [address] [place] [phone] Notes/Report: Triglycerides 196 <150 mg/dL Desirable Triglyceride: [...] A1c Reviewed date:04/02/2024 05:16:13 PM Interpretation: Performing Lab:[address] [phone] Notes/Report: Hemoglobin A1c % 7.1 <6.0 % [...] average glucose, using the formula of the J4W-Vefzxgj Average Glucose study (ADAG), Diabetes Care, Vol.31,#8, 2007 Prothrombin Time INR Reviewed date:04/09/2024 12:14:10 PM Interpretation: Performing Lab:[facility], [address] [place] [phone] Notes/Report: Prothrombin Time 31.7 10.9-12.4 SEC INTERNATIONAL [...] INR Reviewed date:06/30/2024 11:32:00 AM Interpretation: Performing Lab:[facility], [address] [place] [phone] Notes/Report: Prothrombin Time 35.1 10.9-12.4 SEC INTERNATIONAL [...] 2.5 - 3.5 Prothrombin Time INR Reviewed date:07/14/2024 12:30:07 PM Interpretation: Performing Lab:[facility], [address] [place] [phone] Notes/Report: Prothrombin Time 25.2 10.9-12.4 SEC INTERNATIONAL [...] 2.5 - 3.5 Prothrombin Time INR Reviewed date:07/28/2024 11:29:24 AM Interpretation: Performing Lab:[facility], [address] [place] [phone] Notes/Report: Prothrombin Time 27.8 10.9-12.4 SEC INTERNATIONAL [...] INR Reviewed date:10/07/2023 12:33:09 PM Interpretation: Performing Lab:[facility], [address] [place] [phone] Notes/Report: Prothrombin Time 37.8 11.1-13.3 SEC INTERNATIONAL [...] INR Reviewed date:01/02/2024 08:22:51 AM Interpretation: Performing Lab:[facility], [address] [place] [phone] Notes/Report: Prothrombin Time 42.1 10.9-12.4 SEC INTERNATIONAL [...] INR Reviewed date:01/07/2024 01:11:11 PM Interpretation: Performing Lab:[facility], [address] [place] [phone] Notes/Report: Prothrombin Time 31.0 10.9-12.4 SEC INTERNATIONAL [...] 2.5 - 3.5 Glucose, Whole Blood Reviewed date:09/30/2023 06:15:31 PM Interpretation: Performing Lab:[address] [phone] Notes/Report: Glucose, Whole Blood 144 60-115 mg/dL METER #: [id number] Testing performed in the [facility] , [address], [place] SLIDE REVIEW Reviewed date:09/30/2023 02:09:35 PM Interpretation: Performing Lab:[facility], [address] [place] [phone] Notes/Report: SLIDE REVIEW VERIFIED Glucose, Whole Blood Reviewed date:01/05/2024 05:02:16 PM Interpretation: Performing Lab:[facility], [address] [place] [phone] Notes/Report: Glucose, Whole Blood 190 60-115 mg/dL METER #: [id number] Testing performed in the [facility] , [address], [place] Lipid Panel Reviewed date:03/17/2024 04:35:59 PM Interpretation: Performing Lab:[facility], [address] [place] [phone] Notes/Report: Triglycerides 207 <150 mg/dL Desirable Triglyceride: [...] A1c Reviewed date:03/15/2024 04:56:43 PM Interpretation: Performing Lab:[facility], [address] [place] [phone] Notes/Report: Hemoglobin A1c % 7.2 <6.0 % [...] average glucose, using the formula of the Y0C-Ltzxcja Average Glucose study (ADAG), Diabetes Care, Vol.31,#8, Oct. 2007 Glucose, Whole Blood Reviewed date:03/17/2024 04:28:32 PM Interpretation: Performing Lab:[facility], [address] [place] [phone] Notes/Report: Glucose, Whole Blood 170 60-115 mg/dL METER #: [id number] Testing performed in the [facility] , [address], [place] Hold Red Reviewed date:04/02/2024 05:17:01 PM Interpretation: Performing Lab:[facility], [address] [place] [address], [place] [address] Notes/Report: Hold Red See Note Specimen held [...] day Active Mupirocin 2 % 1 application Director Ambulatory ally Twice a day for 5 day(s) 03/28/2021 Active diazePAM 5 MG (Schedule IV Drug) T KVNG ONE TABLET BY MOUTH EVERY 6 HOURS NEEDED FOR MUSCLE SPASM Oral for 3 Not-Taking Diprolene AF 0.05 % 1 application Director Ambulatory ally Once a day for 30 days 02/23/2019 Not-Takin g Atenolol 50 MG TAKE 2 TABLETS BY [facility] TWICE DAILY for 90 Active PARoxetine HCl 20 MG TAKE 1 TABLET BY [facility] EVERY MORNING for 90 Active FreeStyle Lite [...] 20 MG TAKE 1 TABLET BY DC EVERY DAY for 90 Active Ativan 0.5 [...] Problem Status W/U Status Risk Notes Problem 435523418 Thrombocytopenia (D69.6) Active confirmed Problem 954217692 Tubular adenoma (D36.9) Active confirmed Problem 49158884 Nevus (D22.9) Active confirmed Problem Mixed hyperlipidemia (222627701) Mixed hyperlipidemia (E78.2) Active confirmed Problem Paroxysmal atrial fibrillation (554261603) Paroxysmal atrial fibrillation (I48.0) Active confirmed Problem 0826433 Primary insomnia (F51.01) Active confirmed Problem 33535037 Lumbar disc disease (M51.9) Active confirmed Problem 41214942 Essential hypertension (I10) Active confirmed Problem Long-term current use of anticoagulant (151788127) residential current use of anticoagulant (Z79.01) Active confirmed Problem Long-term current use of anticoagulant (172878041) 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 accountant current use of anticoagulant therapy (Z79.01) Active confirmed Problem 60222057 Type 2 diabetes mellitus with 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) Active confirmed Problem 388898852 Acute systolic congestive heart failure (I50.21) Active confirmed Problem Pressure injury (morphologic abnormality) (4019638093) Pressure sore (L89.90) Active confirmed Problem Long-term current use of anticoagulant (870890677) Encounter for current long-term use of anticoagulants (Z79.01) Active confirmed Problem 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) Abnormal platelets (D69.1) Active confirmed Problem 997742314 Temporary low platelet count (D69.6) Active confirmed Problem 687720485 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 Problem 18427232 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) Active confirmed Problem 24453279464775058 Pressure injur y of sacral region, unstageable (L89.150) Active confirmed Vital Signs Blood pressure diastolic 60 mm Hg 04/09/2024 Height 73.5 in 04/09/2024 Blood pressure systolic 112 mm Hg 04/09/2024 Weight 253 lbs 04/09/2024 BMI 32.92 kg/m2 04/09/2024 Encounters Encounter Location Date Provider Diagnosis Brody Goldberg MD [address] [place] [address] [id number] 07/30/2023 Brody Bombardier Paroxysmal atrial fibrillation I48.0 ; Encounter for current long-term use of anticoagulants Z79.01 and residential current use of anticoagulant therapy Z79.01 Brody Goldberg MD [address] [place] [address] [id number] 08/13/2023 Brody Bombardier Paroxysmal atrial fibrillation I48.0 and Encounter for current long-term use of anticoagulants Z79.01 Brody Goldberg MD [address] [place] [address] [id number] 08/27/2023 Brody Bombardier Paroxysmal atrial fibrillation I48.0 and residential current use of anticoagulant Z79.01 Brody Goldberg MD [address] [place] [address] Drive [address] [place] [address] [id number] 09/10/2023 Brody Bombardier Paroxysmal atrial fibrillation I48.0 and residential current use of anticoagulant Z79.01 Brody Goldberg MD [address] [place] [address] Drive [address] [place] [address] [id number] 09/24/2023 Brody Bombardier Paroxysmal atrial fibrillation I48.0 and residential current use of anticoagulant Z79.01 Brody Goldberg MD [address] [place] [address] [id number] 09/30/2023 Brody Bombardier Mixed hyperlipidemia E78.2 ; 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 ; Thrombocytopenia D69.6 and Acute systolic congestive heart failure I50.21 Brody Goldberg MD [address] [place] [address] [id number] 10/22/2023 Brody Bombardier Paroxysmal atrial fibrillation I48.0 and 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 accountant current use of anticoagulant Z79.01 Brody Goldberg MD [address] [place] [address] [id number] 11/07/2023 Brody Bombardier Paroxysmal atrial fibrillation I48.0 and Encounter for current long-term use of anticoagulants Z79.01 Brody Goldberg MD [address] [place] [address] [id number] 11/19/2023 Brody Bombardier Paroxysmal atrial fibrillation I48.0 and Encounter for current long-term use of anticoagulants Z79.01 Brody Goldberg MD [address] [place] [address] [id number] 12/03/2023 Brody Bombardier Paroxysmal atrial fibrillation I48.0 ; Encounter for immunization Z23 and Encounter for current long-term use of anticoagulants Z79.01 Brody Goldberg MD [address] [place] [address] [id number] 12/17/2023 Brody Bombardier Paroxysmal atrial fibrillation I48.0 and Encounter for current long-term use of anticoagulants Z79.01 Brody Goldberg MD [address] [place] [address] [id number] 01/21/2024 Brody Bombardier Paroxysmal atrial fibrillation I48.0 and 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 accountant current use of anticoagulant Z79.01 Brody Goldberg MD [address] [place] [address] [id number] 02/04/2024 Brody Bombardier Paroxysmal atrial fibrillation I48.0 and 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 accountant current use of anticoagulant Z79.01 Brody Goldberg MD [address] [place] [address] [id number] 02/25/2024 Brody Bombardier Paroxysmal atrial fibrillation I48.0 and residential current use of anticoagulant Z79.01 Brody Goldberg MD [address] [place] [address] [id number] 03/12/2024 Brody Bombardier Paroxysmal atrial fibrillation I48.0 and 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 accountant current use of anticoagulant Z79.01 Brody Goldberg MD [address] [place] [address] [id number] 03/24/2024 Brody Bombardier Paroxysmal atrial fibrillation I48.0 and 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 accountant current use of anticoagulant therapy Z79.01 Brody Goldberg MD [address] [place] [address] [id number] 04/02/2024 Brody Bombardier Mixed hyperlipidemia E78.2 and 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 Brody Goldberg MD [address] [place] [address] [id number] 04/09/2024 Brody Bombardier Paroxysmal atrial fibrillation I48.0 and Encounter for current long-term use of anticoagulants Z79.01 Brody Goldberg MD [address] [place] [address] [id number] 06/30/2024 Brody Bombardier Paroxysmal atrial fibrillation I48.0 and Encounter for current long-term use of anticoagulants Z79.01 Brody Goldberg MD [address] [place] [address] [id number] 07/14/2024 Brody Bombardier Paroxysmal atrial fibrillation I48.0 and Encounter for current long-term use of anticoagulants Z79.01 Brody Goldberg MD [address] [place] [address] [id number] 07/28/2024 Brody Bombardier Paroxysmal atrial fibrillation I48.0 and Encounter for current long-term use of anticoagulants Z79.01 Brody Goldberg MD [address] [place] [address] [id number] 10/07/2023 Brody Bombardier Paroxysmal atrial fibrillation I48.0 ; residential current use of anticoagulant Z79.01 ; 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 ; Tubular adenoma D36.9 ; Mixed hyperlipidemia E78.2 ; Essential hypertension I10 ; Acute systolic congestive heart failure I50.21 ; Colon cancer screening Z12.11 and Encounter for screening for depression Z13.31 Brody Goldberg MD [address] [place] [address] [id number] 12/31/2023 Brody Bombardier Paroxysmal atrial fibrillation I48.0 and Encounter for current long-term use of anticoagulants Z79.01 Brody Goldberg MD [address] [place] [address] [id number] 01/07/2024 Brody Godlberg Paroxysmal atrial fibrillation I48.0 and Encounter for current long-term use of anticoagulants Z79.01 Brody Goldberg MD [address] [place] [address] [id number] 04/09/2024 Brody Goldberg Paroxysmal atrial fibrillation I48.0 ; 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 ; Pressure injury of sacral region, 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 and Mixed hyperlipidemia E78.2 Brody Goldberg MD [address] [place] [address] [id number] 03/24/2024 Brody Goldberg Pressure sore L89.90 Brody Goldberg MD [address] [place] [address] [id number] 06/18/2024 Brody Goldberg MD [address] [place] [address] [id number] 11/05/2023 Brody Goldberg MD [address] [place] [address] [id number] 02/25/2024 Brody Goldberg MD [address] [place] [address] [id number] 06/05/2024 Brody Goldberg Assessments Encounter Date Diagnosis (ICD Code) Assessment Notes Treatment Notes Treatment Clinical Notes Section Notes 07/30/2023 Paroxysmal atrial fibrillation (ICD-10 - I48.0) 07/30/2023 Encounter for current long-term use of anticoagulants (ICD-10 - Z79.01) 08/13/2023 Paroxysmal atrial fibrillation (ICD-10 - I48.0) 08/13/2023 Encounter for current long-term use of anticoagulants (ICD-10 - Z79.01) 08/27/2023 Paroxysmal atrial fibrillation (ICD-10 - I48.0) 08/27/2023 residential current use of anticoagulant (ICD-10 - Z79.01) 09/10/2023 Paroxysmal atrial fibrillation (ICD-10 - I48.0) 09/10/2023 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 accountant current use of anticoagulant (ICD-10 - Z79.01) 09/24/2023 Paroxysmal atrial fibrillation (ICD-10 - I48.0) 09/24/2023 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 accountant current use of anticoagulant (ICD-10 - Z79.01) 09/30/2023 Mixed hyperlipidemia (ICD-10 - E78.2) 09/30/2023 Type 2 diabetes mellitus with diabetic neuropathy (ICD-10 - E11.40) 10/22/2023 Paroxysmal atrial fibrillation (ICD-10 - I48.0) 10/22/2023 residential current use of anticoagulant (ICD-10 - Z79.01) [...] Paroxysmal atrial fibrillation (ICD-10 - I48.0) 01/21/2024 residential current use of anticoagulant (ICD-10 - Z79.01) 02/04/2024 Paroxysmal atrial fibrillation (ICD-10 - I48.0) 02/04/2024 residential current use of anticoagulant (ICD-10 - Z79.01) 02/25/2024 Paroxysmal atrial fibrillation (ICD-10 - I48.0) 02/25/2024 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 accountant current use of anticoagulant (ICD-10 - Z79.01) 03/12/2024 Paroxysmal atrial fibrillation (ICD-10 - I48.0) 03/12/2024 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 accountant current use of anticoagulant (ICD-10 - Z79.01) 03/24/2024 Paroxysmal atrial fibrillation (ICD-10 - I48.0) 03/24/2024 residential current use of anticoagulant therapy (ICD-10 - Z79.01) 04/02/2024 Mixed hyperlipidemia (ICD-10 - E78.2) 04/02/2024 Type 2 diabetes mellitus with diabetic neuropathy (ICD-10 - E11.40) 04/09/2024 Paroxysmal atrial fibrillation (ICD-10 - I48.0) 04/09/2024 Encounter for current long-term use of anticoagulants (ICD-10 - Z79.01) 06/30/2024 Paroxysmal atrial fibrillation (ICD-10 - I48.0) 07/14/2024 Paroxysmal atrial fibrillation (ICD-10 - I48.0) 07/28/2024 Paroxysmal atrial fibrillation (ICD-10 - I48.0) 10/07/2023 Paroxysmal atrial fibrillation (ICD-10 - I48.0) not having any problems, will continue current regiment 10/07/2023 residential current use of anticoagulant (ICD-10 - Z79.01) [...] 03/24/2024 Pressure sore (ICD-10 - L89.90) 07/30/2023 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 accountant current use of anticoagulant therapy (ICD-10 - Z79.01) 09/30/2023 Thrombocytopenia (ICD-10 - D69.6) 12/03/2023 Encounter for current long-term use of anticoagulants (ICD-10 - Z79.01) 06/30/2024 Encounter for current long-term use of anticoagulants (ICD-10 - Z79.01) 07/14/2024 Encounter for current long-term use of anticoagulants (ICD-10 - Z79.01) 07/28/2024 Encounter for current long-term use of [...] CONTRAST 12/08/2012 Next Appt Details Provider Name:Brody Parikh ier, 10/01/2024 08:00:00 AM, [address] [place] [address], [address] [place] [address], [phone], Provider Name:Brody Parikh ier, 10/08/2024 11:00:00 AM, [address] [place] [address], Suite [facility], [place], [place], [phone], Insurance Providers Payer Name Payer Address Payer Phone Subscriber Number Group Number Insured Name Patient Relationship to Insured Coverage Start Date Coverage End Date MEDICARE NHIC [address] [place] [address] [id number] Jayy Rodriguez Self - patient is the insured 3 [employer] [place] [address] [place] [phone] [id number] Jayy Rodriguez Self - patient is the insured Medical (General) History Medical History History ICD Code prediabetes in 2008 tubular adenoma at [facility]co py 2006; colonoscopy 09/11/13 - repeat 5 years not sure if he is going to have another 2020 myalgia on rosuvastatin 2022 says he is no further colonoscopies . knows that he had a lot of polyps
== END 2024-07-28 10:34 | disposition home or self-care (01) ==
LOC: HO.LNP 10:33
PROVIDERS: Visit Provider Internal Medicine
DX: I48.0 Paroxysmal atrial fibrillation (principal); Z79.01 Long term (current) use of anticoagulants
CPT/HCPCS: 85610

== ENCOUNTER 2024-08-11 10:15 | Outpatient (AMB) | payer MEDICARE, SELFPAY ==
[2024-08-11 10:19] VITALS: BP 126/78; PULSE 63; O2SAT 93; BMI 32.6
--- NOTE | 2024-08-11 10:19 | A.OFFVIS_ITS ---
Vital Signs 3 08/11/24 10:19 Height 6 ft 2 in Weight 253 lb 14.841 oz BMI 32.6 BP 126/78 Blood Pressure Location Rt brachial Position Sitting Pulse 63 Pulse Source Pulse Oximeter Pulse Oximetry (%) 93 Oxygen Delivery Method Room Air Intake Visit Reasons: T2DM Intake Note: Patient present today for Type 2 Diabetes Mellitus Last Diabetic eye exam: Its been over 1 year. Last Podiatry Visit: Doesn't have one Random Glucose: 134 mg/dl HgA1C: 6.8% Healthcare Advisory Services Manager Required: No Accompanied by: Self / Same As Patient Allergies lisinopril Adverse Reaction (Verified 08/11/24 10:24) Cough metformin Adverse Reaction (Verified 08/11/24 10:24) Diarrhea Medication List - Last Reconciled 08/11/24 by Beatris Patrick MD acetaminophen ER (Tylenol Arthritis Pain) 650 mg PO Q12H PRN 30 days atenolol 75 mg PO BID atorvastatin 40 mg PO BEDTIME blood sugar diagnostic (FreeStyle Lite Strips) 4 times a day; blood-glucose meter (FreeStyle Lite Meter kit) As directed blood-glucose sensor (FreeStyle Lindsey 3 Sensor device) As directed every 14 days blood-glucose sensor (FreeStyle Lindsey 3 Sensor device) As directed every 14 days blood-glucose,solvent process extractor operator,cont (FreeStyle Lindsey 3 [place]) As directed blood-glucose,solvent process extractor operator,cont (FreeStyle Lindsey 3 [place]) As directed cholecalciferol (vitamin D3) 50 mcg PO DAILY 30 days clotrimazole-betamethasone 1-0.05 % appl topical finasteride 5 mg PO DAILY flash glucose scanning reader (FreeStyle Lindsey 14 Day [place]) As directed flash glucose sensor (FreeStyle Lindsey 14 Day Sensor kit) Once every 14 days flu vacc [id number](65yr up)-PF mL IM furosemide 20 mg PO DAILY insulin glargine (Basaglar KwikPen U-100 Insulin) 28 units (0.28 mL) subcut DAILY insulin lispro (Humalog KwikPen (U-100) Insulin) inject 8 units with breakfast, inject 8 units with lunch, inject 12 units with supper lancets (FreeStyle Lancets) 4x daily losartan-hydrochlorothiazide 100-25 mg 1 tab PO DAILY paroxetine HCl 20 mg PO QAM pen needle, diabetic (BD Ultra-Fine Micro Pen Needle) once daily with insulin pen needle, diabetic (BD Ultra-Fine Micro Pen Needle) 3 tmes daily pen needle, diabetic (Pen Needle) 4x daily pen needle, diabetic (BD Hui 2nd Gen Pen Needle) 4 times daily warfarin 7 mg PO DAILY warfarin 0 mg PO HPI Comments Details: 78 YO Male with PMHx T2DM, HTN, HLD and pancreatitis who is seen in F/U for T2DM. Last visit 03/16/24 No interval emergency room visits or hospitalizarions Initially diagnosed with T2DM in 2007. Prior meds Was initially started on treatment with Metformin, but was unable to tolerate this due to GI distress. He trialed Januvia as well as Farxiga, Jardiance and Invokana, but stopped these as they were ineffective. He has a history of gallstone pancreatitis 10 yrs ago , and GLP-1 is contraindicated. Current regimen Basaglar 27 units qHS and Humalog units with 8 BF and lunch , 12 pre dinner Random POC today: 134 mg/dL A1c 03/14/24: 7.2 % A1c 01/03/2024: POC 8.4% A1c 09/30/2023: 7 . 5% A1c 08/11/24 : 6.8% Bought a treadmill 30 mins every other day . Freestyle Lindsey 3+ reviewed from July 29 to 08/11/2024 Average glucose 151 mg/dL G AR 6.9% Glucose variability 18.7% Time CGM active 97% Within target range 87% High 13% Very high 0% Low 0% Very low 0% Interpretation: Mostly within target range, does have some post dinner hyperglycemia plus a spike at 15:00 after he snacks. Denies a Family History of T2DM. Has eyes checked yearly, last eye exam - last appt over a year ago . No retinopathy. Has neuropathy, does not see podiatry. Foot exam completed 09/2023 Has nephropathy, on Losartan 100 mg PO daily. UAC 19.2, 09/2023 Has HLD. On Pravastatin 20 mg PO daily. Last LDL 89 , 10/08. Developed myalgias with Rosuvastatin 10 mg PO daily, stopped this on 07/04/2020. Denies CAD. or stroke Diet: Has completely cut out sugars and is counting carbohydrate. However he does have a lot of red meat and high fatty foods in his diet, breakfast is hinojosa with eggs. Screen for liver fibrosis: Fibrosis 4 index 2.85 points calculated 01/03/2024, had appt with GI 07/13/24, pending further evaluation Weight stable Weight: 01/03/24: Gained 20 lbs since 1 years from 240 to 257 since 202203/16/24: lost 6 lbs since last visit now 251 lbs Seen nutrition and CDE. Physical exam General: sitting comfortably in no acute distress HEENT: normocephalic/atraumatic, , moist oral mucosa Neck: supple, symmetrical, no thyromegaly , no dorsocervical or supraclavicular fat pads Cardiac: normal heart sounds Pulm: normal breath sounds B/L, no added breath sounds Abd: not distended, no tenderness Extremities: no edema, no signs of myxedema Neuro: AAO x3, Speech: normal, no facial droop, moving all 4 extremities Foot exam : Patient again deferred today due to wearing compression stockings that are difficult to take off Hgb A1c (Clinic) 8.4 % (4.0-6.0) H 01/03/24 08:03 Laboratory Tests 09/30/23 07:15 Creatinine 0.91 Estimated GFR > 60 Hemoglobin A1c % 7.2 H Triglycerides 198 H Cholesterol 170 LDL Cholesterol, Calc 89 HDL Cholesterol 42 Microalb/Creat Ratio 19.2 Laboratory Tests 01/03/24 03/14/24 08:03 07:41 Estimat Average Glucose 160 Hgb A1c (Clinic) 8.4 H Hemoglobin A1c % 7.2 H Triglycerides 207 H Cholesterol 152 LDL Cholesterol, Calc 71 HDL Cholesterol 40 L Laboratory Tests 04/02/24 08/11/24 08/11/24 07:30 10:26 10:28 Glucose (Clinic) 134 H Hgb A1c (Clinic) 6.8 H Hemoglobin A1c % 7.1 H [facility] Medical History (Updated 07/13/24 @ 13:34 by DELFIN Malcolm) Thrombocytopenia Type 2 diabetes mellitus Obesity (BMI 30.0-34.9) Metabolic dysfunction-associated steatotic liver disease (MASLD) Vitamin D deficiency Pancreatitis Afib Lower extremity edema HLD (hyperlipidemia) HTN (hypertension) Surgical History History of Mohs surgery for squamous cell carcinoma of skin Hx of sinus surgery Previous back surgery History of cholecystectomy Family History Father No problems noted. Mother No problems noted. Social History Alcohol intake: never Patient Tobacco Use Status: Never used Tobacco Current occupational status: unemployed Physical Exam Vital Signs: Last Vital Signs Pulse 63 08/11/24 10:19 BP 126/78 08/11/24 10:19 Pulse Ox 93 08/11/24 10:19 Oxygen Delivery Method Room Air 08/11/24 10:19 BMI result Body Mass Index 26.2 Office Procedures Glucose Monitoring Details Details: see [facility] [id number] - Glucose monitoring, continuous-physician I&R Procedure code (CPT) selection complete Results AMB Hemoglobin A1c 2 AMB Hemoglobin A1c 6.8 % Last Edit by DAVIN Almaraz on 08/11/24 10:35 Results Reviewed Results Reviewed: Laboratory Last Values Glucose (Clinic) 134 mg/dL (60-115) H 08/11/24 10:26 Assessment & Plan Assessment & Plan (1) Type 2 diabetes mellitus: Code(s): E11.9 - Type 2 diabetes mellitus without complications Category: Medical Qualifiers: Diabetes mellitus complication detail: with polyneuropathy Diabetes mellitus complication status: with neurologic complications Diabetes mellitus long chain beamer insulin use: with longterm use Qualified Code(s): E11.42 - Type 2 diabetes mellitus with diabetic polyneuropathy; Z79.4 - tank terminal gauger (current) use of insulin Plan: Patient with a history of type 2 diabetes mellitus diagnosed 2007, who is now insulin dependent with complications of peripheral neuropathy. A1c POC from today 08/11/2024 at 6.8% which from 03/06/2024 at 7.2% significantly improved Patient endorses adherence to his insulin and he is taking his postprandial insulin 15 minutes before meals. He has significantly work done his exercise and dietary improvements in the lifestyle modification has clearly been working. I encouraged him to continue these changes. We reviewed his CGM data, he is in target range 87% of the time. Mostly within target range, does have some post dinner hyperglycemia plus a spike at 15:00 after he snacks. Plan: -continue Basaglar 27 units daily. -continue Humalog to 8 prior to breakfast and lunch and 12 units prior to dinner, add another 2-3 units prior to 15:00 snack if taking a high carb snack. -?Diet control and healthy lifestyle was discussed in detail. Emphasis was made on exercise and physical activity in daily routine with at least 30-45 minutes of aerobic exercise 5-6 days a week. E: Last visit with packing machine inspector was on []April 2023. No diabetic retinopathy. Advised to make follow up appointment F: Foot care: Does not follow up with special projects manager but checks foot daily, he again more compression socks today, and said that he can not take those off, I have advised him to were normal socks to my visit so I can do a foot exam. G: eGFR greater than 60 and microalbumin/Cr ratio 19.2 from September 2023, continue losartan 100 mg daily Follow up in 5 months (2) Metabolic dysfunction-associated steatotic liver disease (MASLD): Code(s): K76.0 - Fatty (change of) liver, not elsewhere classified Category: Medical Plan: Fibrosis for index score 2.85 calculated 01/03/2024. Concerning for advanced fibrosis. -he is not a candidate for GLP 1 agonist due to past history of pancreatitis, had appointment with GI , pending further evaluation Plan: -advised 30 minutes of walking daily -counseled on dietary modification with the elimination of hi fatty foods and incorporating more whole grains in diet -follow up with GI (3) HLD (hyperlipidemia): Code(s): E78.5 - Hyperlipidemia, unspecified Category: Medical Qualifiers: Hyperlipidemia type: unspecified Qualified Code(s): E78.5 - Hyperlipidemia, unspecified Plan: LDL at 71 mg/dL from 03/14/24, after switching to atorvastatin from pravastatin in December 2023 He did not react well to rosuvastatin. Plan: -LDL goal less than 70 mg/dL -continue atorvastatin 40 mg daily -repeat lipid panel prior to follow up in 5 months (4) HTN (hypertension): Code(s): I10 - Essential (primary) hypertension Category: Medical Qualifiers: Hypertension type: unspecified Qualified Code(s): I10 - Essential (primary) hypertension Plan: Blood pressure within goal. Continue losartan 100 mg daily (5) Obesity (BMI 30.0-34.9): Code(s): E66.811 - Obesity, class 1 Category: Medical Plan: BMI 32.4 kg per m2. He has gained 20 lb since 2022. Now has started exercising and doing 30 minutes of treadmill every other day. Weight is stable. Lifestyle modification advised with incorporating more whole grains, avoiding red meat, avoiding fatty foods Advised about continuing incorporating 30 minutes of walking daily or 4-5000 steps at least Plan I spent 30 minutes in reviewing the record, seeing the patient and documenting in the medical record. Orders: Orders 2 Basic Metabolic Panel 5 Months E11.42 - Type 2 diabetes mellitus with diabetic polyneuropathy, E78.5 - Hyperlipidemia, unspecified, I10 - Essential (primary) hypertension, Z79.4 - tank terminal gauger (current) use of insulin AMB Hemoglobin A1c Today .42 - Type 2 diabetes mellitus with diabetic polyneuropathy, Z13.9 - Encounter for screening, unspecified, Z79.4 - prison (current) use of insulin Lipid Panel 5 Months E11.42 - Type 2 diabetes mellitus with diabetic polyneuropathy, E78.5 - Hyperlipidemia, unspecified, I10 - Essential (primary) hypertension, Z79.4 - prison (current) use of insulin Microalbumin, Random (w Creat) 5 Months E11.42 - Type 2 diabetes mellitus with diabetic polyneuropathy, E78.5 - Hyperlipidemia, unspecified, I10 - Essential (primary) hypertension, Z79.4 - tank terminal gauger (current) use of insulin Hemoglobin A1c 5 Months E11.42 - Type 2 diabetes mellitus with diabetic polyneuropathy, E78.5 - Hyperlipidemia, unspecified, I10 - Essential (primary) hypertension, Z79.4 - tank terminal gauger (current) use of insulin AMB Glucose Monitoring Today E11.42 - Type 2 diabetes mellitus with diabetic polyneuropathy, Z79.4 - tank terminal gauger (current) use of insulin Medications: Changed 2 From insulin lispro (Humalog KwikPen (U-100) Insulin) inject 8 units with breakfast, inject 8 units with lunch, inject 12 units with supper 15 mL 5RF E11.65 - Type 2 diabetes mellitus with hyperglycemia To insulin lispro (Humalog KwikPen (U-100) Insulin) inject 8 units with breakfast, inject 8 units with lunch, inject 12 units with supper plus 2-3 units with pre snack 15 mL 5RF E11.65 - Type 2 diabetes mellitus with hyperglycemia Patient Instructions: Schedule eye visit Take an extra 2-3 units of insulin lispro ( humalog) with your 3 pm snack if it has carbs in it Do fasting blood work and urine test prior to your next appt in December 2024 Continue Basagalar as it is For next visit please wear normal socks for foot exam Coding Level of Care Code Est Pt Level 4 (62001) Diagnoses Type 2 diabetes mellitus with diabetic polyneuropathy, with long-term current use of insulin E11.42; Z79.4 Diabetes mellitus complication detail: with polyneuropathy Diabetes mellitus complication status: with neurologic complications Diabetes mellitus long chain beamer insulin use: with long chain beamer use Metabolic dysfunction-associated steatotic liver disease (MASLD) K76.0 Hyperlipidemia, unspecified hyperlipidemia type E78.5 Hyperlipidemia type: unspecified Hypertension, unspecified type I10 Hypertension type: unspecified Obesity (BMI 30.0-34.9) E66.811 CPT Codes Details - CPT: 24122 - Glucose monitoring, continuous-physician I&R ([id number]) Time Spent (min) 30
[2024-08-11 10:29] LABS: Glucose, Whole Blood 134 mg/dL (60-115)
--- OUTSIDE RECORDS SUMMARY | 2024-08-11 11:00 | XMS_ITS ---
Author Organization Brody Goldberg MD Address [address] [place] [phone] Care Team Providers Care Klystrom Tube Tester Name Role Phone Brody Goldberg Primary Care Provider Results Component Value Reference Range Notes Prothrombin Time INR Reviewed date:07/14/2024 12:30:07 PM Interpretation: Performing Lab:[facility], [address] [place] [phone] Notes/Report: Prothrombin Time 25.2 10.9-12.4 SEC INTERNATIONAL [...] Brody Goldberg MD [address] [place] [phone] 07/14/2024 Brody Goldberg Paroxysmal atrial fibrillation I48.0 and Encounter for current long-term use of anticoagulants Z79.01 Assessments Encounter Date Diagnosis (ICD Code) Assessment Notes Treatment Notes Treatment Clinical Notes Section Notes 07/14/2024 Paroxysmal atrial fibrillation (ICD-10 - I48.0) 07/14/2024 Encounter for current long-term use of anticoagulants (ICD-10 - Z79.01) Plan Of Treatment Next Appt Details Provider Name:Brody reyesr, 10/01/2024 08:00:00 AM, [address] [facility], [address] [facility], [place], [place], [phone], Provider Name:Brody Parikh ier, 10/08/2024 11:00:00 AM, [address] [facility], [address], [place], [place], [phone], Progress Notes * Jayy RODRIGUEZ LDOB:1945 ([age] yo M)Acc No.[id number]:07/14/2024 Progress Note Patient:?Jayy RODRIGUEZ Provider:?Brody Goldberg MD :1945???Age:78 Y???Sex:Male Alexey e:07/14/2024 Address:[address] [place], [place] [phone] Subjective: * Chief Complaints: * ???1. INR. * Medical History:? Objective: * Vitals:? Assessment: * Assessment: 1.?Paroxysmal atrial fibrill ation - I48.0 (Primary)???2.?Encounter for current long-term use of anticoagulants - Z79.01??? Plan: * Treatment: 2.?Encounter for current vannesa g-term use of anticoagulants?LAB: Prothrombin Time INR (Collection Date & Time - 07/14/2024 09:15 AM) * Procedure Codes:?56782 VENIP UNCT, ROUTINE* * * The named appointment provid er may or may not be the originator of this progress note, and it is not deemed complete until electronically signed by the appointment provider. Sign off status: Pending * Provider:?Brody Goldberg MD Date:?0 07/14/2024 Generated for Mariposai ng/Fadaphneg/eTransmitting on:?08/11/2024 11:00 AM EDT
== END 2024-08-11 10:44 | disposition home or self-care (01) ==
LOC: HO.ENCR 10:16
PROVIDERS: PCP Internal Medicine; Visit Provider Student in an Organized Health Care Education/Training Program
DX: E11.42 Type 2 diabetes mellitus with diabetic polyneuropathy (principal); Z79.4 Long term (current) use of insulin; K76.0 Fatty (change of) liver, not elsewhere classified; E78.5 Hyperlipidemia, unspecified; I10 Essential (primary) hypertension; E66.811 Obesity, class 1; Z13.9 Encounter for screening, unspecified
CPT/HCPCS: 95251; 99214

== ENCOUNTER → 2024-08-11 10:15 | Outpatient (BNVA) | payer MEDICARE, SELFPAY | PROVIDERS: PCP Internal Medicine; Visit Provider Student in an Organized Health Care Education/Training Program | DX: Z13.89 Encounter for screening for other disorder (principal) | CPT/HCPCS: 82947; 83036; 99212 ==

== ENCOUNTER 2024-08-11 13:13 | Outpatient (REF) | payer MEDICARE, SELFPAY ==
[2024-08-11 13:25] LABS: INTERNATIONAL NORM RATIO 1.9 (0.9-1.1); Prothrombin Time 21.6 SEC (10.9-12.4)
== END 2024-08-11 13:14 | disposition home or self-care (01) ==
LOC: HO.LNP 13:13
PROVIDERS: Visit Provider Internal Medicine
DX: I48.0 Paroxysmal atrial fibrillation (principal); Z79.01 Long term (current) use of anticoagulants
CPT/HCPCS: 82947; 83036; 85610; 99212

== ENCOUNTER 2024-08-25 09:47 | Outpatient (REF) | payer MEDICARE, SELFPAY ==
[2024-08-25 10:15] LABS: INTERNATIONAL NORM RATIO 2.2 (0.9-1.1); Prothrombin Time 25.1 SEC (10.9-12.4)
--- OUTSIDE RECORDS SUMMARY | 2024-08-25 10:58 | XMS_ITS ---
Author Organization Brody Goldberg MD Address [address] [place] [phone] Care Team Providers Care Signs Cleaner Name Role Phone Brody Goldberg Primary Care Provider Results Component Value Reference Range Notes Prothrombin Time INR (Not ye t reviewed by provider) Interpretation: Performing Lab:[facility], [address] [place] [phone] Notes/Report: Prothrombin Time 25.1 10.9-12.4 SEC INTERNATIONAL [...] Brody Goldberg MD [address] [place] [phone] 08/25/2024 Brody Goldberg Paroxysmal atrial fibrillation I48.0 and Encounter for current long-term use of anticoagulants Z79.01 Assessments Encounter Date Diagnosis (ICD Code) Assessment Notes Treatment Notes Treatment Clinical Notes Section Notes 08/25/2024 Paroxysmal atrial fibrillation (ICD-10 - I48.0) 08/25/2024 Encounter for current long-term use of anticoagulants (ICD-10 - Z79.01) Plan Of Treatment Pending Test Test Name Order Date Prothrombin Time INR 08/25/2024 Next Appt Details Provider Name:Brody Parikh ier, 10/01/2024 08:00:00 AM, [address] [place] [address] Drive, [address], [place], [place], [phone], Provider Name:Brody Parikh ier, 10/08/2024 11:00:00 AM, [address], [address], [place], [place], [phone], Progress Notes * Jayy RODRIGUEZ LDOB:1945 ([age] yo M)Acc No.[id number]:08/25/2024 Progress Note Patient:?Jayy RODRIGUEZ Provider:?Brody Goldberg MD :1945???Age:78 Y???Sex:Male Alexey e:08/25/2024 Address:[address] [place], [place] [phone] Subjective: * Chief Complaints: * ???1. INR. * Medical History:? Objective: * Vitals:? Assessment: * Assessment: 1.?Paroxysmal atrial fibrill ation - I48.0 (Primary)???2.?Encounter for current long-term use of anticoagulants - Z79.01??? Plan: * Treatment: 2.?Encounter for current vannesa g-term use of anticoagulants?LAB: Prothrombin Time INR (Collection Date & Time - 08/25/2024 08:45 AM) * Procedure Codes:?38445 VENIP UNCT, ROUTINE* * * The named appointment provid er may or may not be the originator of this progress note, and it is not deemed complete until electronically signed by the appointment provider. Sign off status: Pending * Provider:?Brody Goldberg MD Date:?0 08/25/2024 Generated for Printi ng/Fadaphneg/eTransmitting on:?08/25/2024 10:58 AM EDT
== END 2024-08-25 09:48 | disposition home or self-care (01) ==
LOC: HO.LNP 09:47
PROVIDERS: Visit Provider Internal Medicine
DX: I48.0 Paroxysmal atrial fibrillation (principal); Z79.01 Long term (current) use of anticoagulants
CPT/HCPCS: 85610

== ENCOUNTER 2024-09-08 09:49 | Outpatient (REF) | payer MEDICARE, SELFPAY ==
--- OUTSIDE RECORDS SUMMARY | 2024-08-25 04:45 | XMS_ITS ---
Author Organization Brody Goldberg MD Address [address] [place] [phone] Care Team Providers Care Circulation Crew Leader Name Role Phone Brody Goldberg Primary Care Provider Results Component Value Reference Range Notes Prothrombin Time INR Reviewed date:08/25/2024 11:30:24 AM Interpretation: Performing Lab:[facility], [address] [place] [phone] Notes/Report: Prothrombin Time 25.1 10.9-12.4 SEC INTERNATIONAL NORM RATIO 2.2 0.9-1.1 [...] Brody Goldberg MD [address] [place] [phone] 08/25/2024 Brody Goldberg Paroxysmal atrial fibrillation I48.0 and Encounter for current long-term use of anticoagulants Z79.01 Assessments Encounter Date Diagnosis (ICD Code) Assessment Notes Treatment Notes Treatment Clinical Notes Section Notes 08/25/2024 Paroxysmal atrial fibrillation (ICD-10 - I48.0) 08/25/2024 Encounter for current long-term use of anticoagulants (ICD-10 - Z79.01) Plan Of Treatment Next Appt Details Provider Name:Brody Parikh ier, 10/01/2024 08:00:00 AM, [address] [facility], [address] [place] [address], [phone], Provider Name:Brody Parikh ier, 10/08/2024 11:00:00 AM, [address] [place] [address], Suite [facility], [place], [place], [phone], Progress Notes * Jayy RODRIGUEZ LDOB:1945 ([age] yo M)Acc No.[id number]:08/25/2024 Progress Note Patient: Jayy ANDRADE Provider: Breezy Goldberg MD :1945 A ge:78 Y S ex:Male Date:08/25/2024 Address:[address] [place], [place] [phone] Subjective: * Chief Complaints: * 1 . INR. * Medical History: Objective: * Vitals: Assessment: * Assessment: 1. P aroxysmal atrial fibrillation - I48.0 (Primary) 2 . E ncounter for current long-term use of anticoagulants - Z79.01 Plan: * Treatment: 2. E ncounter for current long-term use of anticoagulants L AB: Prothrombin Time INR (Collection Date & Time - 08/25/2024 08:45 AM) * Procedure Codes: 3 6415 VENIPUNCT, ROUTINE* * * The named appointment provid er may or may not be the originator of this progress note, and it is not deemed complete until electronically signed by the appointment provider. Sign off status: Pending * Provider: Breezy Goldberg MD Date: 0 08/25/2024 Generated for Doron granados/Quang/Kyitting on: 09/08/2024 10:45 AM EDT
[2024-09-08 10:15] LABS: INTERNATIONAL NORM RATIO 2.2 (0.9-1.1); Prothrombin Time 24.8 SEC (10.9-12.4)
== END 2024-09-08 09:50 | disposition home or self-care (01) ==
LOC: HO.LNP 09:49
PROVIDERS: Visit Provider Internal Medicine
DX: I48.0 Paroxysmal atrial fibrillation (principal); Z79.01 Long term (current) use of anticoagulants
CPT/HCPCS: 85610

== ENCOUNTER 2024-09-13 14:54 | Emergency (ER) | payer MEDICARE, SELFPAY ==
--- NOTE | ~2024-09-13 | CT_ITS ---
CLINICAL HISTORY: fall head strike CT cervical spine without contrast Comparison: None provided Findings: Vertebral alignment is within normal limits. Moderate degenerative changes of the cervical spine. No acute fractures or dislocations. No acute findings on limited view of the intracranial contents. Soft tissues of the neck are normal. No consolidation or effusion at the lung apices. IMPRESSION: No acute findings. This document has been electronically signed by: Deric Urrutia MD on 09/13/2024 18:13:32
--- NOTE | ~2024-09-13 | CT_ITS ---
CLINICAL HISTORY: fall +right head strike on thinners CT head without contrast Comparison: None provided Findings: No midline shift, hydrocephalus, or acute hemorrhage. Mild age-appropriate cerebral atrophy. Low attenuation in the periventricular white matter consistent with chronic small-vessel ischemic gliosis. Previous right maxillary sinus surgery. Paranasal sinuses and mastoid air cells appear clear. In the left middle cranial fossa adjacent to the cavernous sinus there is a hyperdense lesion measuring 1.1 cm suspected to be partially calcified, series 11, image 77. This is suspected to be a partially calcified meningioma. There is no mass effect. The orbits are within normal limits. No skull fracture. IMPRESSION: 1. No acute intracranial findings. No intracranial hemorrhage. 2. Left middle cranial fossa 1.1 cm lesion suspected to be a partially calcified meningioma. No significant mass effect. This document has been electronically signed by: Deric Urrutia MD on 09/13/2024 18:07:26
[2024-09-13 15:14] VITALS: BP 137/64; PULSE 63; RESP 16; TEMP 36.8; O2SAT 97; BMI 32.1
--- NOTE | 2024-09-13 15:16 | ED.HEATRA ---
HPI - Head Injury General Chief complaint: Fall Stated complaint: fall Time Seen by Provider: 09/13/24 16:42 Source: patient Mode of arrival: ambulatory Limitations: no limitations History of Present Illness ED Provider: adam stacy np HPI Narrative: Patient is a 78-year-old male who presents emergency department for evaluation after a mechanical slip and fall. He states that he was taking off his wet swim trunks in the bathroom he went to stand up from the toilet he accidentally slipped on the water striking his head onto the toilet. There was no loss of consciousness. He was able to get up unassisted. He admits to being on Coumadin for history of atrial fibrillation, reports his last INR was 2.2 6 days ago. No active bleeding. He denies headache, dizziness, lightheadedness, vision changes, neck pain, neck stiffness, numbness or tingling of the extremities, bladder bowel dysfunction. Related Data Home Medications ?Medication ?Instructions ?Recorded ?Confirmed atenolol 50 mg tablet 75 mg PO BID 12/17/19 08/11/24 finasteride 5 mg tablet 5 mg PO DAILY 12/17/19 08/11/24 furosemide 20 mg tablet 20 mg PO DAILY 12/17/19 08/11/24 losartan 100 1 tab PO DAILY 12/17/19 08/11/24 mg-hydrochlorothiazide 25 mg tablet warfarin 2 mg tablet 7 mg PO DAILY 12/17/19 08/11/24 flu vacc [id number](65yr up)-PF 240 ml IM 01/28/20 08/11/24 mcg/0.7 mL intramuscular syringe clotrimazole-betamethasone 1 appl topical 08/23/20 08/11/24 %-0.05 % topical cream paroxetine HCl 20 mg tablet 20 mg PO QAM 08/23/20 08/11/24 warfarin 5 mg tablet 0 mg PO 10/10/20 08/11/24 Previous Rx's ?Medication ?Instructions ?Recorded blood-glucose meter (FreeStyle #1 ea 12/18/19 Lite Meter kit) flash glucose sensor (FreeStyle #2 ea 03/31/20 Lindsey 14 Day Sensor kit) pen needle, diabetic 32 gauge x #100 ea 04/27/2003/21 (BD Ultra-Fine Micro Pen Needle) pen needle, diabetic 32 gauge x #100 ea 05/04/20 1/4 (BD Ultra-Fine Micro Pen Needle) acetaminophen 650 mg 650 mg PO Q12H PRN pain 30 days 07/19/20 tablet,extended release (Tylenol #30 tabs Arthritis Pain) flash glucose scanning reader #1 ea 09/07/20 (FreeStyle Lindsey 14 Day [place]) blood sugar diagnostic (FreeStyle See Rx Instructions .Route QID 12/12/20 Lite Strips) #100 caps lancets 28 gauge (FreeStyle #100 ea 12/12/20 Lancets) pen needle, diabetic 32 gauge x #100 ea 12/21/20 5/32 (BD Hui 2nd Gen Pen Needle) pen needle, diabetic 32 gauge x #100 ea 08/22/2132 (Pen Needle) cholecalciferol (vitamin D3) 50 50 mcg PO DAILY 30 days #30 caps 10/17/21 mcg (2,000 unit) capsule atorvastatin 40 mg tablet 40 mg PO BEDTIME #90 tabs 01/03/24 blood-glucose sensor (FreeStyle #6 ea 02/25/24 Lindsey 3 Sensor device) blood-glucose,wedding makeup artist,cont #1 ea 02/25/24 (FreeStyle Lindsey 3 [place]) blood-glucose sensor (FreeStyle #6 ea 02/26/24 Lindsey 3 Sensor device) blood-glucose,wedding makeup artist,cont #1 ea 02/26/24 (FreeStyle Lindsey 3 [place]) insulin glargine 100 unit/mL (3 28 unit (0.28 mL) subcut DAILY #30 03/16/24 mL) subcutaneous pen (Basaglar mL KwikPen U-100 Insulin) insulin lispro 100 unit/mL See Rx Instructions subcut TID #15 08/11/24 subcutaneous pen (Humalog KwikPen mL (U-100) Insulin) Allergies Allergy/AdvReac Type Severity Reaction Status Date / Time lisinopril AdvReac Cough Verified 09/13/24 15:18 metformin AdvReac Diarrhea Verified 09/13/24 15:18 Review of Systems Review of Systems: Yes all other systems are reviewed and are negative [facility] Past Medical History Attestation statement: The following information was validated with the patient. Source: old records reviewed Medical History Thrombocytopenia Type 2 diabetes mellitus Obesity (BMI 30.0-34.9) Metabolic dysfunction-associated steatotic liver disease (MASLD) Vitamin D deficiency Pancreatitis Afib Lower extremity edema HLD (hyperlipidemia) HTN (hypertension) Surgical History History of Mohs surgery for squamous cell carcinoma of skin Hx of sinus surgery Previous back surgery History of cholecystectomy Family History Family History Father No problems noted. Mother No problems noted. Social History Social History Alcohol intake: never Patient Tobacco Use Status: Never used Tobacco Smoked in Last 30 Days: No Use of substances other than those prescribed or required for medical reasons: No Advance Directives: No Advance Directives Information Provided: No Do you have a plan to hurt others: No Plan Current occupational status: unemployed Physical Exam Vital Signs: Vital Signs: Last Vital Signs Temp 98.2 F 09/13/24 15:14 Pulse 63 09/13/24 15:14 Resp 16 09/13/24 15:14 BP 137/64 09/13/24 15:14 Pulse Ox 97 09/13/24 15:14 O2 Del Method Room Air 09/13/24 15:14 BMI result Body Mass Index 32.1 Appearance: Alert.?Oriented to person, place and time. No acute distress.?Normal affect. Head: Normocephalic Eyes: Pupils equal, round and reactive to light. EOMI. Conjunctiva and sclera normal? No Reynolds sign noted. No raccoon eyes noted ENT: No septal hematoma, nares patent bilaterally. External auditory canal normal tympanic membrane pearly euceda and intact bilaterally. Dentition normal, no fractured teeth. No lesions or lacerations of oropharynx. Uvula midline. Moist mucous membranes. Neck: Normal inspection.? Neck supple.??No palpable tenderness, step-off, deformities. CVS: Heart sounds normal. Normal heart rate and rhythm.? Pulses normal.?? Respiratory: No respiratory distress.? Lung sounds clear to auscultation bilaterally?? Abdomen: Soft and non-tender. Normoactive bowel sounds. ?? Skin: Skin warm and dry.? Normal skin color.? Normal skin turgor.?? Extremities: No lower extremity edema.? Neuro: Moves all extremities spontaneously. Sensation intact bilaterally. CN II-XII intact. No focal neuro deficits. Course Course Course Narrative: 09/13/24 1516 LUCAS Biggs This is a Rapid Medical Examination (RME) performed by Savanah Levin PA-C in triage. Full HPI, ROS, assessment and treatment plan per primary provider in the Main ED. Hx: 78 yo M here s/p slip and fall on wet bathroom floor with right sided head strike on toilet occurring around 1430 today. no LOC. on coumadin. took his dose today. no complaints at present. Plan: imaging Medical Decision Making Medical Decision Making [facility] Narrative: Patient is a 78-year-old male past medical history of diabetes, vitamin-D deficiency, pancreatitis, atrial fibrillation on warfarin, hypertension, hyperlipidemia, thrombocytopenia who presents emergency department for evaluation after a mechanical slip and fall with resultant head strike but no loss of consciousness as per HPI. He is moving upper and lower extremities bilaterally without any difficulty full range of motion. He endorses no physical complaints at this time in his physical examination is benign. However given the mechanism of injury and his use of anticoagulants, will obtain CT of the head to exclude ICH, SDH, lower suspicion for fracture based on exam findings. Will additionally obtain serum labs including coagulation studies to assure no supratherapeutic INR. Otherwise if workup is unremarkable anticipate he will be discharged home with strict return precautions, expectations of symptoms associated with concussion, and outpatient follow-up with primary care provider. Incidental finding of partially calcified lesion on the left, concerning for meningioma, patient is aware of a lesion has been reportedly stable for the past year she will do sepsis with his primary care provider to show the significant change from prior. No prior CT imaging in our record system for comparison. Differential Diagnosis Differential Diagnoses: The differential diagnosis associated with the presentation includes (See narrative above) Admission/Observation Consideration of admission/observation: Escalation of care including admission/observation considered (See narrative above) Lab Data [facility] Lab Attestation statement: I reviewed the patient's lab results. CBC is without leukocytosis anemia, has a mild thrombocytopenia with platelet count 119,000. INR of 1.9. No electrolyte derangement. No EDEN. 09/13/24 17:03 09/13/24 17:03 Labs: Lab Results 09/13/24 Range/Units 17:03 WBC 10.6 (4.8-10.8) X10*3/uL RBC 4.98 (4.60-5.80) X10*6/uL Hgb 16.1 (14.0-18.0) g/dl Hct 47.9 (42.0-52.0) % MCV 96.2 (80.0-98.0) fL MCH 32.3 (27.0-33.0) pg MCHC 33.6 (31.0-36.0) g/dl RDW 13.6 (11.0-16.0) % Plt Count 119 L (160-400) X10*3/uL MPV 10.4 (9.4-12.4) fL Immature Gran % (Auto) 0.3 (0.0-0.4) % Neut % (Auto) 65.2 (45-73) % Lymph % (Auto) 25.1 (20-40) % [place] % (Auto) 7.5 (2-11) % Eos % (Auto) 1.4 (0-4) % Baso % (Auto) 0.5 (0-2) % Lymph # (Auto) 2.7 (1.2-4.9) X10*3/uL [place] # (Auto) 0.8 (0.1-1.2) X10*3/uL Eos # (Auto) 0.2 (0.0-0.4) X10*3/uL Baso # (Auto) 0.1 (0.0-0.2) X10*3/uL Abs Immat Gran (auto) 0.03 (0.00-0.03) X10*3/uL Absolute Neuts (auto) 6.9 (2.0-8.3) x10*3/uL Absolute Nucleated RBC 0.000 (0.0-0.012) X10*3/uL Nucleated RBC % (auto) 0.0 (0.0-0.2) /100WBC PT 22.1 H (10.9-12.4) SEC INR 1.9 H (0.9-1.1) Sodium 141 (135-145) mmol/L Potassium 4.5 (3.3-5.1) mmol/L Chloride 102 (96-108) mmol/L Carbon Dioxide 29 (22-29) mmol/L Anion Gap 15 (12-20) BUN 26 H (9-16) mg/dL Creatinine 0.98 (0.5-1.4) mg/dL Estim Creat Clear Calc 85.8 Estimated GFR > 60 Random Glucose 134 H (60-115) mg/dL Calcium 9.9 D (8.4-10.2) mg/dL Independent Interpretation I performed an independent interpretation of an: CT Scan (No ICH no SDH.) Radiology Impression Discussion of test interpretation with radiology: I have reviewed the radiologist's reading. Radiologist Impression: CT head without contrast Comparison: None provided Findings: No midline shift, hydrocephalus, or acute hemorrhage. Mild age-appropriate cerebral atrophy. Low attenuation in the periventricular white matter consistent with chronic small-vessel ischemic gliosis. Previous right maxillary sinus surgery. Paranasal sinuses and mastoid air cells appear clear. In the left middle cranial fossa adjacent to the cavernous sinus there is a hyperdense lesion measuring 1.1 cm suspected to be partially calcified, series 11, image 77. This is suspected to be a partially calcified meningioma. There is no mass effect. The orbits are within normal limits. No skull fracture. IMPRESSION: 1. No acute intracranial findings. No intracranial hemorrhage. 2. Left middle cranial fossa 1.1 cm lesion suspected to be a partially calcified meningioma. No significant mass effect. CT cervical spine without contrast Comparison: None provided Findings: Vertebral alignment is within normal limits. Moderate degenerative changes of the cervical spine. No acute fractures or dislocations. No acute findings on limited view of the intracranial contents. Soft tissues of the neck are normal. No consolidation or effusion at the lung apices. IMPRESSION: No acute findings. Independent Historian Clinical information obtained from an independent historian. History obtained from or confirmed by: Spouse External Record Review External record reviewed: Outpatient record Chronic Conditions Patient?s care impacted by: Other (See narrative above) Discharge Plan Discharge Clinical Impression: Acute head injury without loss of consciousness Qualifiers: Encounter type: initial encounter Qualified Code(s): S09.90XA - Unspecified injury of head, initial encounter Patient Disposition: Home, Self-Care Additional Instructions: Your INR today resulted at 1.9. Blood work was otherwise unremarkable compared to prior. CT of the head did not show evidence of acute intracranial bleeding nor any fracture which is reassuring. There was however an incidental finding on your CAT scan on the left side; a 1.1 cm lesion that appears partially calcified, may be consistent with a meningioma, which is a benign tumor. This should be further followed up outpatient. Read instructions provided regarding signs and symptoms associated with a concussion. Return back to emergency department any new or worsening symptoms or concerns which includes but is not limited to persistent dizziness, headache, vision changes, nausea with persistent vomiting, weakness, slurred speech, confusion, bleeding. Prescriptions: No Action (DME) blood-glucose meter [FreeStyle Lite Meter] Kit See Rx Instructions .ROUTE .MEDSUPPLY Qty: 1 0RF Rx Instructions: As directed (DME) FreeStyle Lindsey 14 Day Sensor Kit See Rx Instructions .ROUTE .MEDSUPPLY Qty: 2 11RF Rx Instructions: Once every 14 days (DME) pen needle, diabetic [BD Ultra-Fine Micro Pen Needle] 32 gauge x 1/4 needle See Rx Instructions .ROUTE .MEDSUPPLY Qty: 100 2RF Rx Instructions: once daily with insulin (DME) pen needle, diabetic [BD Ultra-Fine Micro Pen Needle] 32 gauge x 1/4 needle See Rx Instructions .ROUTE .MEDSUPPLY Qty: 100 0RF Rx Instructions: 3 tmes daily (DME) FreeStyle Lindsey 14 Day [place] Misc See Rx Instructions .ROUTE .MEDSUPPLY Qty: 1 0RF Rx Instructions: As directed FreeStyle Lite Strips Strip See Rx Instructions .ROUTE QID Qty: 100 11RF Rx Instructions: 4 times a day; (DME) lancets [FreeStyle Lancets] 28 gauge misc See Rx Instructions .ROUTE .MEDSUPPLY Qty: 100 1RF Rx Instructions: 4x daily (DME) pen needle, diabetic [BD Hui 2nd Gen Pen Needle] 32 gauge x 5/32 needle See Rx Instructions .ROUTE .MEDSUPPLY Qty: 100 11RF Rx Instructions: 4 times daily (DME) pen needle, diabetic [Pen Needle] 32 gauge x 5/32 needle See Rx Instructions .ROUTE .MEDSUPPLY Qty: 100 11RF Rx Instructions: 4x daily cholecalciferol (vitamin D3) 50 mcg (2,000 unit) capsule 50 mcg PO DAILY 30 Days Qty: 30 11RF (DME) FreeStyle Lindsey 3 Sensor Device See Rx Instructions .ROUTE .MEDSUPPLY Qty: 6 4RF Rx Instructions: As directed every 14 days (DME) FreeStyle Lindsey 3 [place] Misc See Rx Instructions .ROUTE .MEDSUPPLY Qty: 1 0RF Rx Instructions: As directed (DME) FreeStyle Lindsey 3 Sensor Device See Rx Instructions .ROUTE .MEDSUPPLY Qty: 6 4RF Rx Instructions: As directed every 14 days (DME) FreeStyle Lindsey 3 [place] Misc See Rx Instructions .ROUTE .MEDSUPPLY Qty: 1 0RF Rx Instructions: As directed losartan-hydrochlorothiazide 100-25 mg tablet 1 tab PO DAILY atenolol 50 mg tablet 75 mg PO BID finasteride 5 mg tablet 5 mg PO DAILY furosemide 20 mg tablet 20 mg PO DAILY warfarin 2 mg tablet 7 mg PO DAILY paroxetine HCl 20 mg tablet 20 mg PO QAM clotrimazole-betamethasone 1-0.05 % cream topical acetaminophen [Tylenol Arthritis Pain] 650 mg tablet extended release 650 mg PO Q12H PRN (Reason: pain) 30 Days Qty: 30 0RF warfarin 5 mg tablet 0 mg PO Fluzone HighDose Quad 20-21 PF 240 mcg/0.7 mL syringe IM atorvastatin 40 mg tablet 40 mg PO BEDTIME Qty: 90 3RF insulin glargine [Basaglar KwikPen U-100 Insulin] 100 unit/mL (3 mL) insulin pen 28 unit subcut DAILY Qty: 30 4RF insulin lispro [Humalog KwikPen Insulin] 100 unit/mL insulin pen See Rx Instructions subcut TID Qty: 15 5RF Rx Instructions: inject 8 units with breakfast, inject 8 units with lunch, inject 12 units with supper plus 2-3 units with pre snack Referrals: Brody Goldberg MD [Primary Care Provider, Medical] Interventions: ED Discharge Assessment Last Done: 09/13/24 18:42 Discharge Date/Time: 09/13/24 18:42 Print Language: Wolof
[2024-09-13 17:07] LABS: MANUAL DIFF FLAG NO
[2024-09-13 17:10] LABS: Basophils Absolute Auto 0.1 X10*3/uL (0.0-0.2); Basophils Percent Auto 0.5 % (0-2); Eosinophils Absolute Auto 0.2 X10*3/uL (0.0-0.4); Eosinophils Percent Auto 1.4 % (0-4); Hematocrit 47.9 % (42.0-52.0); Hemoglobin 16.1 g/dl (14.0-18.0); Imm Gran Abs Auto 0.03 X10*3/uL (0.00-0.03); Imm Gran Pct Auto 0.3 % (0.0-0.4); Lymphocytes Absolute Auto 2.7 X10*3/uL (1.2-4.9); Lymphocytes Percent Auto 25.1 % (20-40); Mean Corpuscular HGB Conc 33.6 g/dl (31.0-36.0); Mean Corpuscular Hemoglobin 32.3 pg (27.0-33.0); Mean Corpuscular Volume 96.2 fL (80.0-98.0); Mean Platelet Volume 10.4 fL (9.4-12.4); Monocytes Absolute Auto 0.8 X10*3/uL (0.1-1.2); Monocytes Percent Auto 7.5 % (2-11); Neutrophils Absolute Auto 6.9 x10*3/uL (2.0-8.3); Neutrophils Percent Auto 65.2 % (45-73); Platelet Count 119 X10*3/uL (160-400); Red Blood Count 4.98 X10*6/uL (4.60-5.80); Red Cell Distribution Width 13.6 % (11.0-16.0); White Blood Count 10.6 X10*3/uL (4.8-10.8)
[2024-09-13 17:18] LABS: INTERNATIONAL NORM RATIO 1.9 (0.9-1.1); Prothrombin Time 22.1 SEC (10.9-12.4)
[2024-09-13 17:20] LABS: Anion Gap 15 (12-20); Blood Urea Nitrogen 26 mg/dL (9-16); Calcium 9.9 mg/dL (8.4-10.2); Carbon Dioxide 29 mmol/L (22-29); Chloride 102 mmol/L (96-108); Creatinine Clr Calc Pharmacy 85.8; Estimated Glomerular Filt Rate > 60; Glucose Random 134 mg/dL (60-115); Potassium 4.5 mmol/L (3.3-5.1); Sodium 141 mmol/L (135-145)
[2024-09-13 18:00] VITALS: BP 134/62; PULSE 64; RESP 15; TEMP 36.9; O2SAT 100
[2024-09-13 18:42] VITALS: BP 134/62; PULSE 64; RESP 15; TEMP 36.9; O2SAT 100
== END 2024-09-13 18:44 | disposition home or self-care (01) ==
PROVIDERS: Nurse Practitioner Family; Emergency Provider Emergency Medicine; PCP Internal Medicine
DX: S09.90XA Unspecified injury of head, initial encounter (principal); I48.91 Unspecified atrial fibrillation; M54.2 Cervicalgia; R51.9 Headache, unspecified; E11.9 Type 2 diabetes mellitus without complications; W01.10XA Fall on same level from slipping, tripping and stumbling with subsequent striking against unspecified object, initial encounter; Z91.81 History of falling; Y93.9 Activity, unspecified; Y92.002 Bathroom of unspecified non-institutional (private) residence as the place of occurrence of the external cause; Y99.8 Other external cause status; Z79.01 Long term (current) use of anticoagulants; Z79.899 Other long term (current) drug therapy; Z79.4 Long term (current) use of insulin
CPT/HCPCS: 36415; 70450; 72125; 80048; 85025; 85610; 99284

== ENCOUNTER → 2024-09-13 15:16 | Outpatient (BNV) | payer MEDICARE, SELFPAY | PROVIDERS: Emergency Provider Emergency Medicine; PCP Internal Medicine; Visit Provider Radiology Diagnostic Radiology | DX: S09.90XA Unspecified injury of head, initial encounter (principal) | CPT/HCPCS: 70450; 72125 ==

== ENCOUNTER 2024-09-22 09:55 | Outpatient (REF) | payer MEDICARE, SELFPAY ==
--- OUTSIDE RECORDS SUMMARY | 2024-09-16 23:59 | XMS_ITS | Continuity of Care Document ---
Author Organization [facility] Address [address] [address]- [facility] Name Relationship Address Phone ELDA RODRIGUEZ spouse Unknown Unavailable Care Team Providers Care Plastic Boat Buffer Name Role Phone Brody Goldberg MD Primary Care Physician [phone] Encounter [facility] Date(s): 08/17/24 - 09/16/24 [place] [id number], [place] [address]- Attending Physician: Alexandrea Valdes Admitting Physician: Alexandrea Valdes Referring Physician: Alexandrea Valdes Encounter Type: Triage Allergies, Adverse Reactions, Alerts Substance Criticality Severity Reaction Reaction Severity Status lisinopril Active metFORMIN Active Medications Atenolol By Mouth, Daily, 75 MG BID, 0 Refills, Maintenance, 08/17/24 10:58:00 AM EDT, Partial fill upon patient request if the prescription is for a schedule II opioid drug. Start Date: 08/17/24 Status: Ordered Repeat number: 1 Basaglar KwikPen = 20 units, Subcutaneous Infusion, Daily, 0 Refills, Maintenance, 06/26/22 2:29:00 PM EDT, Partial fill upon patient request if the prescription is for a schedule II opioid drug. Start Date: 06/26/22 Status: Ordered Repeat number: 1 CoQ10 = 300 mg, By Mouth, Daily, 0 Refills, Maintenance, 12/23/17 3:10:06 PM EDT Start Date: 12/23/17 Status: Ordered Repeat number: 1 Coumadin Tablet = 5 mg, By Mouth, Daily, 1 1/2- 2 tablet, 0 Refills, Maintenance, 12/23/17 3:09:10 PM EDT Start Date: 12/23/17 Status: Ordered Repeat number: 1 Humalog 100 u/ml subcutaneous injection = 6 units, Subcutaneous Infusion, 3 times a day before meals, 0 Refills, Maintenance, 06/26/22 2:28:00 PM EDT, Partial fill upon patient request if the prescription is for a schedule II opioid drug. Start Date: 06/26/22 Status: Ordered Repeat number: 1 hydrochlorothiazide-losartan 25 mg-100 mg oral tablet 1 tablet, By Mouth, Daily, # 30 tablet, 0 Refills, Maintenance, 08/17/24 10:58:00 AM EDT, Tablet, Partial fill upon patient request if the prescription is for a schedule II opioid drug. Start Date: 08/17/24 Status: Ordered Quantity: 30.0 Unit: tablet Repeat number: 1 PARoxetine 25 mg oral tablet, extended release 1 tablet = 25 mg, By Mouth, Daily in AM, # 30 tablet, 0 Refills, Maintenance, 08/17/24 10:58:00 AM EDT, ER Tablet, Partial fill upon patient request if the prescription is for a schedule II opioid drug. Start Date: 08/17/24 Status: Ordered Quantity: 30.0 Unit: tablet Repeat number: 1 Vitamin D3 oral tablet 1 tablet = 10 mcg, By Mouth, Daily, 0 Refills, Maintenance, 06/26/22 2:26:00 PM EDT, Partial fill upon patient request if the prescription is for a schedule II opioid drug. Start Date: 06/26/22 Status: Ordered Repeat number: 1 Problem List Condition Confirmation Course Effective Dates Status Health St atus Informant Obese class I Confirmed Active Social History Social History Type Response Smoking Status Never smoker entered on: 05/15/17 Sex Sex Representation Male (finding) Cardiology * Event Display: Cardiology Office Note, Non-BH Authored Date: * Event Display: Cardiology Office Note, Non-BH Authored Date: Radiology * Event Display: X-Ray Chest, Non- BH Authored Date: Patient Care team information Care Team Personnel Name: Brody Goldberg MD Position: Reference Physician Member Role: PCP Address: [address] [place] [address] Brody Goldberg MD [place], [place] [address] Telecom: [phone] Care Team Related Persons Name: ELDA RODRIGUEZ Insurance Providers Guarantor name: KEYSHA RODRIGUEZ Health Plan Information #: 1 Payer: MEDICARE B Payer Identifier: PAL Member Number: [id number] Group Number: [id number] Subscriber Identifier: [id number] Relationship to Subscriber: self Coverage Type: NA Coverage Verification Date: NA Telecom: NA Address: PAL [facility] Information #: 2 Payer: MEDEX SECONDARY ONLY Payer Identifier: PAL Member Number: [id number] Group Number: [id number] Subscriber Identifier: [id number] Relationship to Subscriber: self Coverage Type: Medicare Other Coverage Verification Date: PAL Telecom: PAL Address: NA
[2024-09-22 10:35] LABS: Hematocrit 48.4 % (42.0-52.0); Hemoglobin 16.0 g/dl (14.0-18.0); Imm Gran Abs Auto 0.03 X10*3/uL (0.00-0.03); Imm Gran Pct Auto 0.3 % (0.0-0.4); Lymphocytes Absolute Auto 2.5 X10*3/uL (1.2-4.9); MANUAL DIFF FLAG SCAN; Mean Corpuscular HGB Conc 33.1 g/dl (31.0-36.0); Mean Corpuscular Hemoglobin 31.9 pg (27.0-33.0); Mean Corpuscular Volume 96.4 fL (80.0-98.0); NRBC Abs Auto 0.000 X10*3/uL (0.0-0.012); NRBC Pct Auto 0.0 /100WBC (0.0-0.2); PLT CLUMP 1; Red Blood Count 5.02 X10*6/uL (4.60-5.80); SCAN SMEAR FLAG 1
--- OUTSIDE RECORDS SUMMARY | 2024-09-22 10:37 | XMS_ITS | Patient Health Record ---
Author Organization [facility] Address [address] [place] [address] Care Team Providers Care Bariatric Program Coordinator Name Role Phone Brody Goldberg MD Primary Care Provider Armando Hunt Unavailable [phone] Reason For Referral No Information Medications Medication SIG (Take, Route, Frequency, Duration) Notes Start Date End Date Status Aspir-81 81 MG 1 tablet Orally Once a day Active Paxil 20 MG 1 tablet in the morn ing Orally Once a day Active Losartan Potassium-HCTZ 100-25 MG 1 tablet Orally Once a day Active Atenolol 50 MG 1 tablet Orally Once a day Active Warfarin Sodium 5 MG 1 tablet Orally Active Glimepiride 1 MG 1 tablet with breakf ast or the first main meal of the day Orally Once a day Active Finasteride 5 MG 1 tablet Orally Once a day Active CoQ-10 400 MG 1 capsule with a bello l Orally Once a day Active Problems Problem Type SNOMED Code ICD Code Onset Dates Problem Status W/U Status Risk Notes Problem Diarrhea (74318500) Diarrhea (787.91) Active confirmed Problem Change in bowel habit (22402114) Change in bowel habits (787.99) Active confirmed Problem History of adenomatous polyp of colon (669584665) History of adenomatous polyp of colon (V12.72) Active confirmed Problem Weight loss (422752523) Weight loss (783.21) Active confirmed Plan Of Treatment Future Test Test Name Order Date COLONOSCOPY 09/03/2013 Insurance Providers Payer Name Payer Address Payer Phone Subscriber Number Group Number Insured Name Patient Relationship to Insured Coverage Start Date Coverage End Date MEDICARE OF [place] [address] [place] [address] [id number] KEYSHA RODRIGUEZ Self - patient is the insured [facility] [address] [place] [address] [id number] KEYSHA RODRIGUEZ Self - patient is the insured Medical (General) History Medical History History ICD Code NIDDM hypertension Denies HI,CVA,Lung disease,renal disease Atrial fib Anxiety On Finasteride for hair loss Sleep apnea-- borderline does not use a CPAP Restless leg syndrome Colonoscopy in 08/2013-multip le small tubular adenomas removed, no sign of inflammatory bowel disease, biopsies negative for microscopic colitis previous diarrhea in relatio n to metformin-blood work was negative for celiac disease in 2013 Surgical History Surgery Date(Month/Year) cholecystectomy--lap--had preceding panc reatitis-- 2009 back surgery X2
--- OUTSIDE RECORDS SUMMARY | 2024-09-22 10:37 | XMS_ITS | Patient Health Record ---
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 Name Role Phone Brody Goldberg Primary Care Provider Allergies Allergen (clinical drug ingredient) Drug/Non Drug Allergy documented on EMR Reaction Allergy Type Onset Date Status metformin Metformin HCl diarrhea Drug Allergy Act enzo Lisinopril couigh Drug Allergy Active Results Component Value Reference Range Notes Prothrombin Time INR Reviewed date:09/24/2023 12:56:05 PM Interpretation: Performing Lab:[address] [phone] Notes/Report: Prothrombin Time 30.7 11.1-13.3 SEC INTERNATIONAL [...] ff Reviewed date:09/30/2023 12:39:19 PM Interpretation: Performing Lab:[address] [phone] Notes/Report: White Blood Count 8.1 4.8-10.8 X10*3/uL [...] 0.0-0.2 /100WBC Neutrophils Absolute Auto 5.1 2.0-8.3 x10*3/uL Imm Gran Abs Auto 0.04 0.00-0.03 X10*3/uL Lymphocytes Absolute Auto 2.2 1.2-4.9 X10*3/uL Monocytes Absolute Auto 0.6 0.1-1.2 X10*3/uL Eosinophils Absolute Auto 0.2 0.0-0.4 X10*3/uL Basophils Absolute Auto 0.0 0.0-0.2 X10*3/uL NRBC [...] 0.0-0.2 /100WBC Neutrophils Absolute Auto 5.1 2.0-8.3 x10*3/uL Imm Gran Abs Auto 0.04 0.00-0.03 X10*3/uL Lymphocytes Absolute Auto 2.2 1.2-4.9 X10*3/uL Monocytes Absolute Auto 0.6 0.1-1.2 X10*3/uL Eosinophils Absolute Auto 0.2 0.0-0.4 X10*3/uL Basophils Absolute Auto 0.0 0.0-0.2 X10*3/uL NRBC Abs Auto 0.000 0.0-0.012 X10*3/uL C ORRECTED REPORT C ORRECTED REPORT Urinalysis and Microscopic Reviewed date:09/30/2023 05:57:39 PM Interpretation: Performing Lab:[facility], [address] [phone] Notes/Report: Color Urine Yellow Appearance Urine Clear PH 6.0 5.0-9.0 Glucose Urine UA Negative Negative mg/dL Urine Blood Negative Negative Specific [place] - Urine 1.020 1.005-1.025 Urine Protein Negative Neg-Trace mg/dL Urine Ketones Negative Negative mg/dL Nitrite Urine Negative Negative Leukocyte Esterase Urine Negative Negative RBC Urine 0-2 0-2 /HPF WBC Urine 0-5 0-5 /HPF Squamous Epithelial Cell Urine 0-2 0-2 /HPF Bacteria Urine None Seen None Seen Hyaline Casts Urine 0-2 0-2 /LPF Comprehensive [place]. Panel Fa Reviewed date:09/30/2023 06:19:38 PM Interpretation: Performing Lab:[facility], [address] [place] [phone] Notes/Report: Sodium 143 135-145 mmol/L Potassium 4.3 3.3-5.1 mmol/L Chloride 105 96-108 mmol/L Carbon Dioxide 30 22-29 mmol/L Anion Gap 12 12-20 Blood Urea Nitrogen 25 9-16 mg/dL Creatinine 0.91 0.5-1.4 mg/dL Estimated Glomerular Filt Rate > 60 NOTE: For -Ukrainian individuals, multiply the result by 1.210. Chronic [...] Panel Reviewed date:09/30/2023 12:39:39 PM Interpretation: Performing Lab:[facility], [address] [phone] Notes/Report: Triglycerides 198 <150 mg/dL Desirable Triglyceride: [...] (Free>4and<10) Reviewed date:09/30/2023 12:37:03 PM Interpretation: Performing Lab:[address] [address] Notes/Report: PSA,Total (Free>4and<10) 1.16 0.00-4.00 ng/mL A [...] Random Reviewed date:09/30/2023 12:37:57 PM Interpretation: Performing Lab:[address] [address] Notes/Report: Creatinine Urine 135.02 Microalbumin Urine 26.0 Microalbum/Creatinine Ratio Ur 19.2 <30 ug/mg cr Albumin/Creatinine Ratio Reference Ranges: Normal: < 30 ug/mg creatinine Microalbuminuria: 30 - 300 ug/mg creatinine Clinical Albuminuria: > 300 ug/mg creatinine Hemoglobin A1c Reviewed date:09/30/2023 02:07:09 PM Interpretation: Performing Lab:[address] [phone] Notes/Report: Hemoglobin A1c % 7.2 <6.0 % [...] average glucose, using the formula of the N0T-[place]epl[place] Average Glucose study (ADAG), Diabetes Care, Vol.31,#8, Oct. 2007 Prothrombin Time INR Reviewed date:10/22/2023 12:23:47 PM Interpretation: Performing Lab:[facility], [address] [phone] Notes/Report: Prothrombin Time 37.2 11.1-13.3 SEC INTERNATIONAL [...] INR Reviewed date:11/07/2023 12:43:56 PM Interpretation: Performing Lab:[facility], [address] [place] [phone] Notes/Report: Prothrombin Time 37.5 11.1-13.3 SEC INTERNATIONAL [...] INR Reviewed date:11/19/2023 12:00:58 PM Interpretation: Performing Lab:[facility], [address] [place] [phone] Notes/Report: Prothrombin Time 34.9 11.1-13.3 SEC INTERNATIONAL [...] INR Reviewed date:12/03/2023 12:04:42 PM Interpretation: Performing Lab:[facility], [address] [phone] Notes/Report: Prothrombin Time 23.3 11.1-13.3 SEC INTERNATIONAL [...] INR Reviewed date:12/17/2023 12:24:57 PM Interpretation: Performing Lab:[facility], [address] [place] [phone] Notes/Report: Prothrombin Time 27.8 10.9-12.4 SEC INTERNATIONAL [...] INR Reviewed date:01/21/2024 12:49:48 PM Interpretation: Performing Lab:[facility], [address] [place] [phone] Notes/Report: Prothrombin Time 31.9 10.9-12.4 SEC INTERNATIONAL [...] INR Reviewed date:02/17/2024 08:32:12 AM Interpretation: Performing Lab:[facility], [address] [place] [phone] Notes/Report: Prothrombin Time 20.5 10.9-12.4 SEC INTERNATIONAL [...] INR Reviewed date:02/25/2024 12:31:15 PM Interpretation: Performing Lab:[facility], [address] [place] [phone] Notes/Report: Prothrombin Time 26.0 10.9-12.4 SEC INTERNATIONAL [...] INR Reviewed date:03/12/2024 12:34:57 PM Interpretation: Performing Lab:[facility], [address] [place] [phone] Notes/Report: Prothrombin Time 32.7 10.9-12.4 SEC INTERNATIONAL [...] INR Reviewed date:03/24/2024 12:22:39 PM Interpretation: Performing Lab:[address] [address] Notes/Report: Prothrombin Time 25.6 10.9-12.4 SEC INTERNATIONAL [...] Panel Reviewed date:04/02/2024 05:16:30 PM Interpretation: Performing Lab:[address] [phone] Notes/Report: Bilirubin Total 0.5 0.0-1.0 mg/dL Bilirubin Direct 0.2 0.0-0.5 mg/dL Aspartate Amino Transferase 24 5-37 U/L Alanine Aminotransferase 18 0-40 U/L Total Protein 7.3 6.5-8.0 g/dL Albumin Level 4.1 3.5-5.0 g/dL Alkaline Phosphatase 65 39-117 U/L Glucose Fasting Reviewed date:04/02/2024 05:15:41 PM Interpretation: Performing Lab:[address] [address] Notes/Report: Glucose Fasting 153 60-99 mg/dL A fasting glucose of 126 mg/dl or greater on more than one occasion is considered diagnostic of diabetes. Lipid Panel with Reflex Reviewed date:04/02/2024 05:16:03 PM Interpretation: Performing Lab:[address] [phone] Notes/Report: Triglycerides 196 <150 mg/dL Desirable Triglyceride: [...] A1c Reviewed date:04/02/2024 05:16:13 PM Interpretation: Performing Lab:[facility], [address] [phone] Notes/Report: Hemoglobin A1c % 7.1 <6.0 % [...] average glucose, using the formula of the N9U-Mzttajm Average Glucose study (ADAG), Diabetes Care, Vol.31,#8, Oct. 2007 Prothrombin Time INR Reviewed date:04/09/2024 12:14:10 PM Interpretation: Performing Lab:[facility], [address] [phone] Notes/Report: Prothrombin Time 31.7 10.9-12.4 SEC INTERNATIONAL [...] INR Reviewed date:06/30/2024 11:32:00 AM Interpretation: Performing Lab:[facility], [address] [place] [phone] Notes/Report: Prothrombin Time 35.1 10.9-12.4 SEC INTERNATIONAL [...] INR Reviewed date:07/14/2024 12:30:07 PM Interpretation: Performing Lab:[facility], [address] [phone] Notes/Report: Prothrombin Time 25.2 10.9-12.4 SEC INTERNATIONAL [...] INR Reviewed date:07/28/2024 11:29:24 AM Interpretation: Performing Lab:[facility], [address] [place] [phone] Notes/Report: Prothrombin Time 27.8 10.9-12.4 SEC INTERNATIONAL [...] 2.5 - 3.5 Prothrombin Time INR Reviewed date:08/14/2024 07:43:22 AM Interpretation: Performing Lab:[facility], [address] [place] [phone] Notes/Report: Prothrombin Time 21.6 10.9-12.4 SEC INTERNATIONAL NORM RATIO 1.9 0.9-1.1 INTERNATIONAL [...] 2.5 - 3.5 Prothrombin Time INR Reviewed date:08/25/2024 11:30:24 AM Interpretation: Performing Lab:[facility], [address] [place] [phone] Notes/Report: Prothrombin Time 25.1 10.9-12.4 SEC INTERNATIONAL [...] 2.5 - 3.5 Prothrombin Time INR Reviewed date:09/08/2024 10:54:20 AM Interpretation: Performing Lab:[facility], [address] [place] [phone] Notes/Report: Prothrombin Time 24.8 10.9-12.4 SEC INTERNATIONAL NORM RATIO 2.2 0.9-1.1 [...] INR Reviewed date:10/07/2023 12:33:09 PM Interpretation: Performing Lab:[facility], [address] [phone] Notes/Report: Prothrombin Time 37.8 11.1-13.3 SEC INTERNATIONAL [...] INR Reviewed date:01/02/2024 08:22:51 AM Interpretation: Performing Lab:[facility], [address] [place] [phone] Notes/Report: Prothrombin Time 42.1 10.9-12.4 SEC INTERNATIONAL [...] INR Reviewed date:01/07/2024 01:11:11 PM Interpretation: Performing Lab:[facility], [address] [phone] Notes/Report: Prothrombin Time 31.0 10.9-12.4 SEC INTERNATIONAL [...] Blood Reviewed date:09/30/2023 06:15:31 PM Interpretation: Performing Lab:[facility], [address] [place] [phone] Notes/Report: Glucose, Whole Blood 144 60-115 mg/dL METER #: [id number] Testing performed [facility] [place] [address]. SLIDE REVIEW Reviewed date:09/30/2023 02:09:35 PM Interpretation: Performing Lab:[facility], [address] [phone] Notes/Report: SLIDE REVIEW VERIFIED Glucose, Whole Blood Reviewed date:01/05/2024 05:02:16 PM Interpretation: Performing Lab:[facility], [address] [place] [phone] Notes/Report: Glucose, Whole Blood 190 60-115 mg/dL METER #: [id number] Testing performed [facility] the [facility] Grace [place]. Lipid Panel Reviewed date:03/17/2024 04:35:59 PM Interpretation: Performing Lab:[facility], [address] [place] [phone] Notes/Report: Triglycerides 207 <150 mg/dL Desirable Triglyceride: [...] A1c Reviewed date:03/15/2024 04:56:43 PM Interpretation: Performing Lab:[facility], [address] [place] [phone] Notes/Report: Hemoglobin A1c % 7.2 <6.0 % [...] average glucose, using the formula of the B8O-Njcdvmv Average Glucose study (ADAG), Diabetes Care, Vol.31,#8, 2007 Glucose, Whole Blood Reviewed date:03/17/2024 04:28:32 PM Interpretation: Performing Lab:[facility], [address] [place] [phone] Notes/Report: Glucose, Whole Blood 170 60-115 mg/dL METER #: [id number] Testing performed [facility], [place]. Hold Red Reviewed date:04/02/2024 05:17:01 PM Interpretation: Performing Lab:[facility], [address] [phone] Notes/Report: Nayely Ramesh See Note Specimen held untested for 24 hours; Call to request Chemistry testing. Glucose, Whole Blood Reviewed date:08/11/2024 11:12:03 AM Interpretation: Performing Lab:[facility], [address] [place] [phone] Notes/Report: Glucose, Whole Blood 134 60-115 mg/dL METER #: [id number] Testing performed [facility], [place]. Complete Blood Count Auto Di ff Reviewed date:09/15/2024 04:47:15 PM Interpretation: Performing Lab:[facility], [address] [place] [phone] Notes/Report: White Blood Count 10.6 4.8-10.8 X10*3/uL Red Blood Count 4.98 4.60-5.80 X10*6/uL Hemoglobin 16.1 14.0-18.0 g/dl Hematocrit 47.9 42.0-52.0 % Mean Corpuscular Volume 96.2 80.0-98.0 fL Mean Corpuscular Hemoglobin 32.3 27.0-33.0 pg Mean Corpuscular HGB Conc 33.6 31.0-36.0 g/dl Red Cell Distribution Width 13.6 11.0-16.0 % Platelet Count 119 160-400 X10*3/uL Mean Platelet Volume 10.4 9.4-12.4 fL Neutrophils Percent Auto 65.2 45-73 % Imm Gran Pct Auto 0.3 0.0-0.4 % Lymphocytes Percent Auto 25.1 20-40 % Monocytes Percent Auto 7.5 2-11 % Eosinophils Percent Auto 1.4 0-4 % Basophils Percent Auto 0.5 0-2 % NRBC Pct Auto 0.0 0.0-0.2 /100WBC Neutrophils Absolute Auto 6.9 2.0-8.3 x10*3/uL Imm Gran Abs Auto 0.03 0.00-0.03 X10*3/uL Lymphocytes Absolute Auto 2.7 1.2-4.9 X10*3/uL Monocytes Absolute Auto 0.8 0.1-1.2 X10*3/uL Eosinophils Absolute Auto 0.2 0.0-0.4 X10*3/uL Basophils Absolute Auto 0.1 0.0-0.2 X10*3/uL NRBC Abs Auto 0.000 0.0-0.012 X10*3/uL Prothrombin Time INR Reviewed date:09/15/2024 12:34:11 PM Interpretation: Performing Lab:[facility], [address] [place] [phone] Notes/Report: Prothrombin Time 22.1 10.9-12.4 SEC INTERNATIONAL NORM RATIO 1.9 0.9-1.1 INTERNATIONAL [...] mechanical prosthetic heart valves: 2.5 - 3.5 Basic Metabolic Panel Reviewed date:09/15/2024 12:40:51 PM Interpretation: Performing Lab:[facility], [address] [place] [phone] Notes/Report: Sodium 141 135-145 mmol/L Potassium 4.5 3.3-5.1 mmol/L Chloride 102 96-108 mmol/L Carbon Dioxide 29 22-29 mmol/L Anion Gap 15 12-20 Blood Urea Nitrogen 26 9-16 mg/dL Creatinine 0.98 0.5-1.4 mg/dL Creatinine Clr Calc Pharmacy 85.8 eGFR (calculated from the MDRD study equation) and eCrCl (calculated from the Cockcroft-Gault equation) are based on different parameters and may not yield comparable results. If eCrCl result is absurd, please check patient's height/weight. Estimated Glomerular Filt Rate > 60 Chronic Kidney Disease: Estimated GFR < 60 mL/min/1.73m2 Severe Kidney Disease: Estimated GFR < 15 mL/min/1.73m2 Glucose Random 134 60-115 mg/dL Calcium 9.9 8.4-10.2 mg/dL CT head/brain wo con (Not ye t reviewed by provider) Interpretation:10-08-2024 Performing Lab: Notes/Report: [address] [address] [address] Scan Report Signed Patient: Jayy Rodriguez MR#: [id number] : 1945 Acct:[id number] Age/Sex: 78 / M ADM Date: 09/13/24 Loc: HO.ED Attending Dr: Ordering Physician: Liz Levin Date of Service: 09/13/24 Procedure(s): CT head/brain wo IV con Accession Number(s): [id number] cc: Brody Goldberg MD; Liz Levin Report Number: [id number]: Total DLP = 840.00 mGy-cm CLINICAL HISTORY: fall +right head strike on thinners CT head without contrast Comparison: None provided Findings: No midline shift, hydrocephalus, or acute hemorrhage. Mild age-appropriate cerebral atrophy. Low attenuation in the periventricular white matter consistent with chronic small-vessel ischemic gliosis. Previous right maxillary sinus surgery. Paranasal sinuses and mastoid air cells appear clear. In the left middle cranial fossa adjacent to the cavernous sinus there is a hyperdense lesion measuring 1.1 cm suspected to be partially calcified, series 11, image 77. This is suspected to be a partially calcified meningioma. There is no mass effect. The orbits are within normal limits. No skull fracture. IMPRESSION: 1. No acute intracranial findings. No intracranial hemorrhage. 2. Left middle cranial fossa 1.1 cm lesion suspected to be a partially calcified meningioma. No significant mass effect. This document has been electronically signed by: Deric Urrutia MD on 09/13/2024 18:07:26 Dictated By: Deric Urrutia MD Signed By: <Electronically signed by Deric Urrutia MD in OV> 09/13/241807 DD/ 06 TD/TT: 09/13/241806 Kennel Attendant: [place] [address] [address] Scan Report Signed Patient: Jayy Rodriguez MR#: [id number] : 1945 Acct:[id number] Age/Sex: 78 / M ADM Date: 09/13/24 Loc: HO.ED Attending Dr: Ordering Physician: Liz Levin Date of Service: 09/13/24 Procedure(s): CT head/brain wo IV con Accession Number(s): [id number] cc: Brody Goldberg MD; Liz Levin Report Number: [id number]: Total DLP = 840.00 mGy-cm CLINICAL HISTORY: fa ll +right head strike on thinners CT head without contrast Comparison: None provided Findings: No midline shift, hydrocephalus, or acute hemorrhage. Mild age-appropriate cerebral atrophy. Low attenuation in the periventricular whit e matter consistent with chronic small-vessel ischemic gliosis. Previous right maxillary sinus surgery. Paranasal sinuses and mastoid air cells appear clear. In the left middle cranial fossa adjacent to the cavernous sinus there is a hyperdense lesion measuring 1.1 cm suspected to be partially calcified, series 11, image 77. This is suspected to be a partially calcified meningioma. There is no mass effect. The orbits are withi n normal limits. No skull fracture. IMPRESSION: 1. No acute intracranial findings. No intracranial hemorrhage. 2. Left middle crani al fossa 1.1 cm lesion suspected to be a partially calcified meningioma . No significant mass effect. This document has be en electronically signed by: Deric Urrutia MD on 09/13/2024 18:07:26 Dictated By: Deric Urrutia MD Signed By: <Electronically signed by Deric Urrutia MD in OV> 09/13/241807 DD/ 06 TD/TT: 09/13/241806 Kennel Attendant: CT cervical spine wo con Reviewed date:09/14/2024 01:32:53 PM Interpretation: Performing Lab: Notes/Report: [place] [address] [address] Scan Report Signed Patient: Jayy Rodriguez MR#: [id number] : 1945 Acct:[id number] Age/Sex: 78 / M ADM Date: 09/13/24 Loc: HO.ED Attending Dr: Ordering Physician: Liz Levin Date of Service: 09/13/24 Procedure(s): CT cervical spine wo IV con Accession Number(s): [id number] cc: Brody Goldberg MD; Liz Levin Report Number: [id number]: Total DLP = 503.00 mGy-cm CLINICAL HISTORY: fall head strike CT cervical spine without contrast Comparison: None provided Findings: Vertebral alignment is within normal limits. Moderate degenerative changes of the cervical spine. No acute fractures or dislocations. No acute findings on limited view of the intracranial contents. Soft tissues of the neck are normal. No consolidation or effusion at the lung apices. IMPRESSION: No acute findings. This document has been electronically signed by: Deric Urrutia MD on 09/13/2024 18:13:32 Dictated By: Deric Urrutia MD Signed By: <Electronically signed by Deric Urrutia MD in OV> 09/13/241813 DD/ 12 TD/TT: 09/13/241812 Kennel Attendant: [place] [address] CT Scan Report Signed Patient: Jayy Rodriguez MR#: [id number] : 1945 Acct:[id number] Age/Sex: 78 / M ADM Date: 09/13/24 Loc: HO.ED Attending Dr: Ordering Physician: Liz Levin Date of Service: 09/13/24 Procedure(s): CT cervical spine wo IV con Accession Number(s): [id number] cc: Brody Goldberg MD; Liz Levin Report Number: [id number]: Total DLP = 503.00 mGy-cm CLINICAL HISTORY: fa ll head strike CT cervical spine without contrast Comparison: None provided Findings: Vertebral alignment is within normal limits. Moderate degenerativ e changes of the cervical spine. No acute fractures o r dislocations. No acute findings on limited view of the intracranial contents. Soft tissues of the neck are normal. No consolidation or effusion at the lung apices. IMPRESSION: No acute findings. This document has be en electronically signed by: Deric Urrutia MD on 09/13/2024 18:13:32 Dictated By: Deric Urrutia MD Signed By: <Electronically signed by Deric Urrutia MD in OV> 09/13/241813 DD/ 12 TD/TT: 09/13/241812 Kennel Attendant: Reason For Referral No Information Medications Medication [...] day Active Mupirocin 2 % 1 application [employer] ally Twice a day for 5 day(s) 03/28/2021 Active diazePAM 5 MG (Schedule IV Drug) T KVNG ONE TABLET BY MOUTH EVERY 6 HOURS NEEDED FOR MUSCLE SPASM Oral for 3 Not-Taking Diprolene AF 0.05 % 1 application [employer] ally Once a day for 30 days 02/23/2019 Not-Takin g Atenolol 50 MG TAKE 2 TABLETS BY MO UT TWICE DAILY for 90 Active PARoxetine HCl 20 MG TAKE 1 TABLET BY MO UTH EVERY MORNING for 90 Active FreeStyle Lite [...] Problem Status W/U Status Risk Notes Problem 338929027 Thrombocytopenia (D69.6) Active confirmed Problem 408411594 Tubular adenoma (D36.9) Active confirmed Problem 58220167 Nevus (D22.9) Active confirmed Problem Mixed hyperlipidemia (458157686) Mixed hyperlipidemia (E78.2) Active confirmed Problem Paroxysmal atrial fibrillation (823066436) Paroxysmal atrial fibrillation (I48.0) Active confirmed Problem 3875213 Primary insomnia (F51.01) Active confirmed Problem 78951767 Lumbar disc disease (M51.9) Active confirmed Problem 14417728 Essential hypertension (I10) Active confirmed Problem Long-term current use of anticoagulant (952872184) 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 current use of anticoagulant (Z79.01) Active confirmed Problem Long-term current use of anticoagulant (875779938) 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 current use of anticoagulant therapy (Z79.01) Active confirmed Problem 01893557 Type 2 diabetes mellitus with 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) Active confirmed Problem 434142354 Acute systolic congestive heart failure (I50.21) Active confirmed Problem Pressure injury (morphologic abnormality) (0545018381) Pressure sore (L89.90) Active confirmed Problem Long-term current use of anticoagulant (387127731) Encounter for current long-term use of anticoagulants (Z79.01) Active confirmed Problem 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) Abnormal platelets (D69.1) Active confirmed Problem 037639374 Temporary low platelet count (D69.6) Active confirmed Problem 566608410 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 Problem 05914798 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) Active confirmed Problem 90960156344116802 Pressure injur y of sacral region, unstageable (L89.150) Active confirmed Vital Signs Blood pressure diastolic 60 mm Hg 04/09/2024 Height 73.5 in 04/09/2024 Blood pressure systolic 112 mm Hg 04/09/2024 Weight 253 lbs 04/09/2024 BMI 32.92 kg/m2 04/09/2024 Encounters Encounter Location Date Provider Diagnosis Brody Goldberg MD [address] [place] [id number] 09/24/2023 Brody Bombardier Paroxysmal atrial fibrillation I48.0 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 Z79.01 Brody Goldberg MD [address] [place] [id number] 09/30/2023 Brody Bombardier Mixed hyperlipidemia E78.2 ; 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 ; Thrombocytopenia D69.6 and Acute systolic congestive heart failure I50.21 Brody Goldberg MD [address] [id number] 10/22/2023 Brody Bombardier Paroxysmal atrial fibrillation I48.0 and 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 current use of anticoagulant Z79.01 Brody Goldberg MD [address] [place] [id number] 11/07/2023 Brody Bombardier Paroxysmal atrial fibrillation I48.0 and Encounter for current long-term use of anticoagulants Z79.01 Brody Goldberg MD [address] [place] [id number] 11/19/2023 Brody Bombardier Paroxysmal atrial fibrillation I48.0 and Encounter for current long-term use of anticoagulants Z79.01 Brody Goldberg MD [address] [place] [id number] 12/03/2023 Brody Bombardier Paroxysmal atrial fibrillation I48.0 ; Encounter for immunization Z23 and Encounter for current long-term use of anticoagulants Z79.01 Brody Goldberg MD [address] [place] [id number] 12/17/2023 Brody Bombardier Paroxysmal atrial fibrillation I48.0 and Encounter for current long-term use of anticoagulants Z79.01 Brody Goldberg MD [address] 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 Z79.01 Brody Goldberg MD [address] [place] [address] [id number] 02/25/2024 Brody Bombardier Paroxysmal atrial fibrillation I48.0 and 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 current use of anticoagulant Z79.01 Brody Goldberg MD [address] [place] [address] [id number] 03/12/2024 Brody Bombardier Paroxysmal atrial fibrillation I48.0 and 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 current use of anticoagulant Z79.01 Brody Goldberg MD [address] [place] [address] [id number] 03/24/2024 Brody Bombardier Paroxysmal atrial fibrillation I48.0 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 therapy Z79.01 Brody Goldberg MD [address] [place] [address] [id number] 04/02/2024 Brody Bombardier Mixed hyperlipidemia E78.2 and 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 Brody Goldberg MD [address] [place] [address] [id number] 04/09/2024 Brody Bombardier Paroxysmal atrial fibrillation I48.0 and Encounter for current long-term use of anticoagulants Z79.01 Brody Goldberg MD [address] [place] [address] [id number] 06/30/2024 Brody Bombardier Paroxysmal atrial fibrillation I48.0 and Encounter for current long-term use of anticoagulants Z79.01 Brody Goldberg MD [address] [place] [address] [id number] 07/14/2024 Brody Bombardier Paroxysmal atrial fibrillation I48.0 and Encounter for current long-term use of anticoagulants Z79.01 Brody Goldberg MD [address] [place] [address] [id number] 07/28/2024 Brody Bombardier Paroxysmal atrial fibrillation I48.0 and Encounter for current long-term use of anticoagulants Z79.01 Brody Goldberg MD [address] [place] [address] [id number] 08/11/2024 Brody Bombardier Paroxysmal atrial fibrillation I48.0 and Encounter for current long-term use of anticoagulants Z79.01 Brody Goldberg MD [address] [place] [address] [id number] 08/25/2024 Brody Bombardier Paroxysmal atrial fibrillation I48.0 and Encounter for current long-term use of anticoagulants Z79.01 Brody Goldberg MD [address] [place] [address] [id number] 09/08/2024 Brody Bombardier Paroxysmal atrial fibrillation I48.0 and Encounter for current long-term use of anticoagulants Z79.01 Brody Goldberg MD [address] [place] [address] [id number] 09/22/2024 Brody Bombardier Mixed hyperlipidemia E78.2 ; 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 ; Thrombocytopenia D69.6 and Acute systolic congestive heart failure I50.21 Brody Goldberg MD [address] [place] [address] [id number] 10/07/2023 Brody Bombardier Paroxysmal atrial fibrillation I48.0 ; 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 current use of anticoagulant Z79.01 ; 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 ; Tubular adenoma D36.9 ; Mixed hyperlipidemia E78.2 ; Essential hypertension I10 ; Acute systolic congestive heart failure I50.21 ; Colon cancer screening Z12.11 and Encounter for screening for depression Z13.31 Brody Goldberg MD [address] [place] [address] [id number] 12/31/2023 Brody Bombardier Paroxysmal atrial fibrillation I48.0 and Encounter for current long-term use of anticoagulants Z79.01 Brody Goldberg MD [address] [place] [address] [id number] 01/07/2024 Brody Bombardier Paroxysmal atrial fibrillation I48.0 and Encounter for current long-term use of anticoagulants Z79.01 Brody Goldberg MD [address] [id number] 04/09/2024 Brody Bombardier Paroxysmal atrial fibrillation I48.0 ; 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 ; Pressure injury of sacral region, 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 and Mixed hyperlipidemia E78.2 Brody Goldberg MD [address] [place] [address] [id number] 03/24/2024 Brody Goldberg Pressure sore L89.90 Brody Goldberg MD [address] [place] [address] [id number] 06/18/2024 Brody Goldberg MD [address] [place] [address] [id number] 09/14/2024 Brody Goldberg MD [address] [place] [address] [id number] 11/05/2023 Brody Goldberg MD [address] [place] [address] [id number] 02/25/2024 Brody Goldberg MD [address] [place] [address] [id number] 06/05/2024 Brody Goldberg Assessments Encounter Date Diagnosis (ICD Code) Assessment Notes Treatment Notes Treatment Clinical Notes Section Notes 09/24/2023 Paroxysmal atrial fibrillation (ICD-10 - I48.0) 09/24/2023 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 current use of anticoagulant (ICD-10 - Z79.01) 09/30/2023 Mixed hyperlipidemia (ICD-10 - E78.2) 09/30/2023 Type 2 diabetes mellitus with diabetic neuropathy (ICD-10 - E11.40) 10/22/2023 Paroxysmal atrial fibrillation (ICD-10 - I48.0) 10/22/2023 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 (ICD-10 - Z79.01) [...] Paroxysmal atrial fibrillation (ICD-10 - I48.0) 01/21/2024 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 (ICD-10 - Z79.01) 02/04/2024 Paroxysmal atrial fibrillation (ICD-10 - I48.0) 02/04/2024 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 current use of anticoagulant (ICD-10 - Z79.01) 02/25/2024 Paroxysmal atrial fibrillation (ICD-10 - I48.0) 02/25/2024 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 (ICD-10 - Z79.01) 03/12/2024 Paroxysmal atrial fibrillation (ICD-10 - I48.0) 03/12/2024 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 (ICD-10 - Z79.01) 03/24/2024 Paroxysmal atrial fibrillation (ICD-10 - I48.0) 03/24/2024 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 current use of anticoagulant therapy (ICD-10 - [...] 07/28/2024 Paroxysmal atrial fibrillation (ICD-10 - I48.0) 08/11/2024 Paroxysmal atrial fibrillation (ICD-10 - I48.0) 08/25/2024 Paroxysmal atrial fibrillation (ICD-10 - I48.0) 09/08/2024 Paroxysmal atrial fibrillation (ICD-10 - I48.0) 09/22/2024 Mixed hyperlipidemia (ICD-10 - E78.2) 10/07/2023 Paroxysmal atrial fibrillation (ICD-10 - I48.0) not having any problems, will continue current regiment 10/07/2023 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 current use of anticoagulant (ICD-10 - Z79.01) [...] regiment 03/24/2024 Pressure sore (ICD-10 - L89.90) 09/30/2023 Thrombocytopenia (ICD-10 - D69.6) 12/03/2023 Encounter for current long-term use of anticoagulants (ICD-10 - Z79.01) 06/30/2024 Encounter for current long-term use of anticoagulants (ICD-10 - Z79.01) 07/14/2024 Encounter for current long-term use of anticoagulants (ICD-10 - Z79.01) 07/28/2024 Encounter for current long-term use of anticoagulants (ICD-10 - Z79.01) 08/11/2024 Encounter for current long-term use of anticoagulants (ICD-10 - Z79.01) 08/25/2024 Encounter for current long-term use of anticoagulants (ICD-10 - Z79.01) 09/08/2024 Encounter for current long-term use of anticoagulants (ICD-10 - Z79.01) 09/22/2024 Type 2 diabetes mellitus with diabetic neuropathy (ICD-10 - E11.40) 10/07/2023 Type 2 diabetes mellitus with diabetic neuropathy (ICD-10 - E11.40) seeing endocrine, will continue current regiment 04/09/2024 Pressure injury of sacral region, unstageable (ICD-10 - L89.150) 09/30/2023 Acute systolic congestive heart failure (ICD-10 - I50.21) 09/22/2024 Thrombocytopenia (ICD-10 - D69.6) 10/07/2023 Tubular adenoma (ICD-10 - D36.9) talked about need for colonoscopy 04/09/2024 Mixed hyperlipidemia (ICD-10 - E78.2) stable, will continue current regiment 09/22/2024 Acute systolic congestive heart failure (ICD-10 - I50.21) 10/07/2023 Mixed hyperlipidemia (ICD-10 - E78.2) stable, [...] Order Date CT SINUS W&WO CONTRAST 12/08/2012 Complete Blood Count Auto Diff 5 Comprehensive [place]. Panel Fast 5 Lipid Panel 09/22/2024 PSA,Total (Free>4and<10) 09/22/2024 Microalbumin, Random 09/22/2024 CT head/brain wo con 09/13/2024 Hemoglobin A1c 09/22/2024 UA ClnCatch+Micro w/rflx Cult 09/22/2024 Next Appt Details Provider Name:Brody Parikh ier, 10/08/2024 11:00:00 AM, [address] [place] [address], [address], [place], [place], [phone], Insurance Providers Payer Name Payer Address Payer Phone Subscriber Number Group Number Insured Name Patient Relationship to Insured Coverage Start Date Coverage End Date [employer] [address] [place] [address] [id number] Jayy Rodriguez Self - patient is the insured 3 [employer] [place] [address] [place] [phone] [id number] Jayy Rodriguez Self - patient is the [...]
[2024-09-22 10:38] LABS: Appearance Urine Turbid; Glucose Urine UA Negative (Negative); INTERNATIONAL NORM RATIO 2.7 (0.9-1.1); PH 5.5 (5.0-9.0); Prothrombin Time 31.0 SEC (10.9-12.4); Specific Gravity - Urine 1.015 (1.005-1.025)
[2024-09-22 10:40] LABS: Hemoglobin A1C 219.9341 umol/L; Total Hemoglobin (HGBA1C) 4167.9335 umol/L
[2024-09-22 11:02] LABS: Alanine Aminotransferase 19 U/L (0-40); Albumin Level 4.2 g/dL (3.5-5.0); Alkaline Phosphatase 56 U/L (39-117); Anion Gap 10 (12-20); Aspartate Amino Transferase 25 U/L (5-37); Blood Urea Nitrogen 24 mg/dL (9-16); Calcium 9.2 mg/dL (8.4-10.2); Carbon Dioxide 33 mmol/L (22-29); Chloride 102 mmol/L (96-108); Cholesterol 131 mg/dL (<200); Estimated Glomerular Filt Rate > 60; HDL Cholesterol 37 mg/dL (>40); Potassium 4.1 mmol/L (3.3-5.1); Sodium 141 mmol/L (135-145); Total Protein 6.8 g/dL (6.5-8.0); Triglycerides 171 mg/dL (<150)
[2024-09-22 11:13] LABS: PSA,Total (Free>4and<10) 1.22 ng/mL (0.00-4.00)
[2024-09-22 11:22] LABS: Platelet Count 101 X10*3/uL (160-400); White Blood Count 8.7 X10*3/uL (4.8-10.8)
[2024-09-22 11:29] LABS: Microalbum/Creatinine Ratio Ur 26.3 ug/mg cr (<30)
== END 2024-09-22 09:56 | disposition home or self-care (01) ==
LOC: HO.LNP 09:55
PROVIDERS: Visit Provider Internal Medicine
DX: I50.21 Acute systolic (congestive) heart failure (principal); E11.40 Type 2 diabetes mellitus with diabetic neuropathy, unspecified; E78.2 Mixed hyperlipidemia; D69.6 Thrombocytopenia, unspecified; Z79.01 Long term (current) use of anticoagulants
CPT/HCPCS: 80053; 80061; 81001; 82043; 82570; 83036; 84153; 85025; 85610

== ENCOUNTER 2024-10-08 15:11 | Outpatient (REF) | payer MEDICARE, SELFPAY ==
--- OUTSIDE RECORDS SUMMARY | 2020-07-28 11:05 | XMS_ITS | Encounter Summary ---
Author Organization [facility] Address [address] [facility] [address] [place] [address] Phone Care Team Providers Care Professor Of Astronomy Name Role Phone Brody Goldberg MD Primary Care Provider Encounter Details Date Type Department Care Team (Late st Contact Info) Description 07/28/2020 11:05 AM EDT Hospital Encounter [facility] [address] [place] [phone] Luis Manuel Cabello PA [address] [place] [phone] [email or web address] g Social History Tobacco Use Types Packs/Day [...] if necessary edited the report originally createdby aKssandra Cruz. Luis Manuelroland Ruiz Irineo ZAVALA IMG XR UPPER EXTREMITY Audra l Result documented in this encounter Visit Diagnoses Not on filedocumented in this encounter Care Teams Professor Of Astronomy Relationship Specialty Start Date End Date Brody Goldberg MD [address] [place] [address] [place] [address] PCP - General Internal Medicine 07/28/20 documented as of this encounter Additional Source Comments The information contained in this document represents components of the legal health record. It is not the complete legal health record.[facility]
--- OUTSIDE RECORDS SUMMARY | 2024-10-08 15:17 | XMS_ITS | Patient Health Record ---
Author Organization [facility] Address [address] [place] [address] Care Team Providers Care Medical Insurance Claims Specialist Name Role Phone Brody Goldberg MD Primary Care Provider Armando Hunt Unavailable [phone] Reason For Referral No Information Medications Medication [...] Status W/U Status Risk Notes Problem Diarrhea (90616594) Diarrhea (787.91) Active confirmed Problem Change in bowel habit (48315992) Change in bowel habits (787.99) Active confirmed Problem History of adenomatous polyp of colon (949427643) History of adenomatous polyp of colon (V12.72) Active confirmed Problem Weight loss (102094651) Weight loss (783.21) Active confirmed Plan Of Treatment Future Test Test Name Order Date COLONOSCOPY 09/03/2013 Insurance Providers Payer Name Payer Address Payer Phone Subscriber Number Group Number Insured Name Patient Relationship to Insured Coverage Start Date Coverage End Date MEDICARE [place] [address] [place] [address] [id number] KEYSHA RODRIGUEZ Self - patient is the insured [facility] [address] [place] [address] [id number] KEYSHA RODRIGUEZ Self - patient is the insured Medical (General) History Medical History History ICD Code NIDDM hypertension Denies [place],CVA,Lung disease,renal disease Atrial fib Anxiety On Finasteride [...]
[2024-10-08 15:27] LABS: INTERNATIONAL NORM RATIO 2.5 (0.9-1.1); Prothrombin Time 28.8 SEC (10.9-12.4)
== END 2024-10-08 15:12 | disposition home or self-care (01) ==
LOC: HO.LNP 15:11
PROVIDERS: Visit Provider Internal Medicine
DX: Z79.01 Long term (current) use of anticoagulants (principal); I48.0 Paroxysmal atrial fibrillation
CPT/HCPCS: 85610

== ENCOUNTER 2024-10-20 09:45 | Outpatient (REF) | payer MEDICARE, SELFPAY ==
--- OUTSIDE RECORDS SUMMARY | 2020-07-28 11:05 | XMS_ITS | Encounter Summary ---
Author Organization [facility] Address [address] [place] [address] Phone Care Team Providers Care Horse Shoer Name Role Phone Brody Goldberg MD Primary Care Provider Encounter Details Date Type Department Care Team (Late st Contact Info) Description 07/28/2020 11:05 AM EDT Hospital Encounter [facility] [address] [place] [address] Luis Manuel Cabello PA-C [address] [place] [address] [email or web address] g Social History Tobacco Use Types Packs/Day [...] the report originally createdby Kassandra Cruz. Luis Manuel Sara Cabello PA-C IMG XR UPPER EXTREMITY Fi nal Result documented in this encounter Visit Diagnoses Not on filedocumented in this encounter Care Teams Horse Shoer Relationship Specialty Start Date End Date Brody Goldberg MD [address] [place] [address] [place] [address] PCP - General Internal Medicine 07/28/20 documented as of this encounter Additional Source Comments The information contained in this document represents components of the legal health record. It is not the complete legal health record.[facility]
--- OUTSIDE RECORDS SUMMARY | 2024-10-15 23:59 | XMS_ITS | Continuity of Care Document ---
Author Organization [facility] Address [address] [address]- Care Team Providers Care Garment Looper Name Role Phone Brody Goldberg MD Primary Care Physician [phone] Encounter [facility] ACCT R [id number] Date(s): 10/08/24 - 10/15/24 [facility] [address] [address]- Attending Physician: Naeem Gaitan MD Admitting Physician: Naeem Gaitan MD Referring Physician: Naeem Gaitan MD Encounter Type: One Time OP Allergies, Adverse Reactions, Alerts Substance Criticality Severity [...] on: 05/15/17 Sex Sex Representation Male (finding) Patient Care team information Care Team Personnel Name: Brody Goldberg MD Position: Reference Physician Member Role: PCP Address: [address] [place] [address] Brody Goldberg MD [place], [place] [address] Telecom: [phone] Care Team Related Persons Name: ELDA RODRIGUEZ Insurance Providers Guarantor name: KEYSHA JENNIFER Health Plan Information #: 1 Payer: MEDICARE B Payer Identifier: NA Member Number: [id number] Group Number: NA Subscriber Identifier: [id number] Relationship to Subscriber: self Coverage Type: NA Coverage Verification Date: NA Telecom: NA Address: Health Plan Information #: 2 Payer: MEDEX SECONDARY ONLY Payer Identifier: NA Member Number: [id number] Group Number: PAL Subscriber Identifier: [id number] Relationship to Subscriber: self Coverage Type: Medicare Other Coverage Verification Date: PAL Telecom: PAL Address: NA
--- OUTSIDE RECORDS SUMMARY | 2024-10-20 05:45 | XMS_ITS ---
Author Organization Brody Goldberg MD Address [address] [place] [phone] Care Team Providers Care Process Tank Tender Name Role Phone Brody Goldberg Primary Care Provider [phone] Results Component Value Reference Range Notes Prothrombin Time INR (Not ye t reviewed by provider) Interpretation: Performing Lab:[facility], [address] [place] [phone] Notes/Report: Prothrombin Time 32.9 10.9-12.4 SEC INTERNATIONAL [...] Brody Goldberg MD [address] [place] [phone] 10/20/2024 Brody Goldberg Paroxysmal atrial fibrillation I48.0 and Encounter for current long-term use of anticoagulants Z79.01 Assessments Encounter Date Diagnosis (ICD Code) Assessment Notes Treatment Notes Treatment Clinical Notes Section Notes 10/20/2024 Paroxysmal atrial fibrillation (ICD-10 - I48.0) 10/20/2024 Encounter for current long-term use of anticoagulants (ICD-10 - Z79.01) Plan Of Treatment Pending Test Test Name Order Date Prothrombin Time INR 10/20/2024 Next Appt Details Provider Name:Brody Parikh ier, 04/09/2025 08:15:00 AM, [address] [place] [address], Suite [facility], [place], [place], [phone], Provider Name:Brody Parikh ier, 04/16/2025 09:00:00 AM, [address] [place] [address], Suite [facility], [place], [place], [phone], Provider Name:Brody Parikh ier, 10/04/2025 08:00:00 AM, [address] [place] [address], Suite [facility], [place], [place], [phone], Provider Name:Brody Parikh ier, 10/11/2025 08:30:00 AM, [address] [place] [address], Suite [facility], [place], [place], [phone], Progress Notes * Jayy RODRIGUEZ LDOB:1945 ([age] yo M)Acc No.[id number]:10/20/2024 Progress Note Patient: Jayy ANDRADE Provider: Breezy Goldberg MD :1945 A ge:79 Y S ex:Male Date:10/20/2024 Address:[address] [place], [place] [phone] Subjective: * Chief Complaints: * 1 . [...] Pending * Provider: Breezy Goldberg MD Date: 10/20/2024 Generated for Doron granados/Quang/Pauline on: 10/20/2024 11:20 AM EDT
[2024-10-20 11:02] LABS: INTERNATIONAL NORM RATIO 2.9 (0.9-1.1); Prothrombin Time 32.9 SEC (10.9-12.4)
--- OUTSIDE RECORDS SUMMARY | 2024-10-20 11:21 | XMS_ITS | Patient Health Record ---
Author Organization [facility] Address [address] [place] [address] Care Team Providers Care Splitter Operator Name Role Phone Brody Goldberg MD Primary Care Provider Armando Hunt Unavailable [phone] Reason For Referral No Information Medications Medication [...] Status W/U Status Risk Notes Problem Diarrhea (81248823) Diarrhea (787.91) Active confirmed Problem Change in bowel habit (57126332) Change in bowel habits (787.99) Active confirmed Problem History of adenomatous polyp of colon (739554467) History of adenomatous polyp of colon (V12.72) Active confirmed Problem Weight loss (783.21) Active confirmed Plan Of Treatment Future Test Test Name Order Date COLONOSCOPY 09/03/2013 Insurance Providers Payer Name Payer Address Payer Phone Subscriber Number Group Number Insured Name Patient Relationship to Insured Coverage Start Date Coverage End Date MEDICARE OF [place] [address] [place] [id number] KEYSHA RODRIGUEZ Self - patient is the insured [facility] [address] [place] [address] [id number] KEYSHA RODRIGUEZ Self - patient is the insured Medical (General) History Medical History History ICD Code NIDDM hypertension Denies [place],CVA,Lung disease,renal disease Atrial fib Anxiety On Finasteride [...]
== END 2024-10-20 09:46 | disposition home or self-care (01) ==
LOC: HO.LNP 09:45
PROVIDERS: Visit Provider Internal Medicine
DX: I48.0 Paroxysmal atrial fibrillation (principal); Z79.01 Long term (current) use of anticoagulants
CPT/HCPCS: 85610

== ENCOUNTER 2024-11-03 11:56 | Outpatient (REF) | payer MEDICARE, SELFPAY ==
--- OUTSIDE RECORDS SUMMARY | 2020-07-28 11:05 | XMS_ITS | Encounter Summary ---
Author Organization [facility] Address [address] [place] [address] Phone Care Team Providers Care Band Attacher Name Role Phone Brody Goldberg MD Primary Care Provider Encounter Details Date Type Department Care Team (Late st Contact Info) Description 07/28/2020 11:05 AM EDT Hospital Encounter [facility] [address] [place] [phone] Luis Manuel Cabello PA-C [address] [place] [address] [email or web address] g Social History Tobacco Use Types Packs/Day [...] on filedocumented in this encounter Care Teams Band Attacher Relationship Specialty Start Date End Date Brody Goldberg MD [address] [place] [address] [place] [address] PCP - General Internal Medicine 07/28/20 documented as of this encounter Additional Source Comments The information contained in this document represents components of the legal health record. It is not the complete legal health record.[facility]
--- OUTSIDE RECORDS SUMMARY | 2024-11-03 05:00 | XMS_ITS ---
Author Organization Brody Goldberg MD Address [address] [place] [phone] Care Team Providers Care Director Fixed Income Name Role Phone Brody Goldberg Primary Care Provider Results Component Value Reference Range Notes Prothrombin Time INR Reviewed date:11/03/2024 12:50:48 PM Interpretation: Performing Lab:[facility], [address] [place] [phone] Notes/Report: Prothrombin Time 31.6 10.9-12.4 SEC INTERNATIONAL [...] Brody Goldberg MD [address] [place] [phone] 11/03/2024 Brody Goldberg Encounter for curren t long-term use of anticoagulants Z79.01 and Paroxysmal atrial fibrillation I48.0 Assessments Encounter Date Diagnosis (ICD Code) Assessment Notes Treatment Notes Treatment Clinical Notes Section Notes 11/03/2024 Encounter for current long-term use of anticoagulants (ICD-10 - Z79.01) 11/03/2024 Paroxysmal atrial fibrillation (ICD-10 - I48.0) Plan Of Treatment Next Appt Details Provider Name:Brody Parikh syd, 04/09/2025 08:15:00 AM, [address] [place] [address], [address], [phone], Provider Name:Brody Parikh syd, 04/16/2025 09:00:00 AM, [address] [place] [address], [place] [address], [place], [place], [phone], Provider Name:Brody Parikh syd, 10/04/2025 08:00:00 AM, [address] [place] [address], [address], [phone], Provider Name:Brody Parikh syd, 10/11/2025 08:30:00 AM, [address] [place] [address], [address], [phone], Progress Notes * JENNIFER Jayy LDOB:1945 ([age] yo M)Acc No.[id number]:11/03/2024 Progress Note Patient: Jayy ANDRADE Provider: Breezy Goldberg MD :1945 A ge:79 Y S ex:Male Date:11/03/2024 Address:[address] [place] [address] Subjective: * Chief Complaints: * 1 . [...] Pending * Provider: Breezy Goldberg MD Date: 11/03/2024 Generated for Doron granados/Quang/Pauline on: 11/03/2024 01:24 PM EDT
[2024-11-03 12:27] LABS: INTERNATIONAL NORM RATIO 2.8 (0.9-1.1); Prothrombin Time 31.6 SEC (10.9-12.4)
--- OUTSIDE RECORDS SUMMARY | 2024-11-03 13:24 | XMS_ITS | Patient Health Record ---
Author Organization [facility] Address [address] [place] [address] Care Team Providers Care Child Protective Services Social Worker Name Role Phone Brody Goldberg MD Primary Care Provider Armando Hunt Unavailable [phone] Reason For Referral No Information Medications Medication [...] Status W/U Status Risk Notes Problem Diarrhea (95267578) Diarrhea (787.91) Active confirmed Problem Change in bowel habit (81175998) Change in bowel habits (787.99) Active confirmed Problem History of adenomatous polyp of colon (637410515) History of adenomatous polyp of colon (V12.72) Active confirmed Problem Weight loss (783.21) Active confirmed Plan Of Treatment Future Test Test Name Order Date COLONOSCOPY 09/03/2013 Insurance Providers Payer Name Payer Address Payer Phone Subscriber Number Group Number Insured Name Patient Relationship to Insured Coverage Start Date Coverage End Date MEDICARE OF [place] [address] [place] [id number] KEYSHA RODRIGUEZ Self - patient is the insured [facility] [address] [place] [address] [phone] [id number] KEYSHA RODRIGUEZ Self - patient is the insured Medical (General) History Medical History History ICD Code NIDDM hypertension Denies [place],CVA,Lung disease,renal disease Atrial fib Anxiety On Finasteride [...]
== END 2024-11-03 11:57 | disposition home or self-care (01) ==
LOC: HO.LNP 11:56
PROVIDERS: Visit Provider Internal Medicine
DX: I48.0 Paroxysmal atrial fibrillation (principal); Z79.01 Long term (current) use of anticoagulants
CPT/HCPCS: 85610

== ENCOUNTER 2024-11-17 11:00 | Outpatient (REF) | payer MEDICARE, SELFPAY ==
--- OUTSIDE RECORDS SUMMARY | 2020-07-28 11:05 | XMS_ITS | Encounter Summary ---
Author Organization [facility] Address [address] [facility] [address] [place] [address] Phone Care Team Providers Care Metal Precision Machine Assembler Name Role Phone Brody Goldberg MD Primary Care Provider Encounter Details Date Type Department Care Team (Late st Contact Info) Description 07/28/2020 11:05 AM EDT Hospital Encounter [facility] [address] [place] [phone] Luis Manuel Cabello PA [address] [place] [phone] [email or web address] g Social History Tobacco Use Types Packs/Day [...] on filedocumented in this encounter Care Teams Metal Precision Machine Assembler Relationship Specialty Start Date End Date Brody Goldberg MD [address] [place] [address] [place] [address] PCP - General Internal Medicine 07/28/20 documented as of this encounter Additional Source Comments The information contained in this document represents components of the legal health record. It is not the complete legal health record.[facility]
[2024-11-17 11:26] LABS: INTERNATIONAL NORM RATIO 2.7 (0.9-1.1); Prothrombin Time 30.7 SEC (10.9-12.4)
--- OUTSIDE RECORDS SUMMARY | 2024-11-17 12:36 | XMS_ITS | Clinical Summary ---
Author Organization [facility] Address [address] [address] Phone Care Team Providers Care Supervisor Filling And Packing Name Role Phone Brody Goldberg MD Primary Care Provider Allergies Active Allergy Reactions Criticality Noted Date Comments Metformin Diarrhea 07/28/2020 Medications atenolol (TENORMIN) 50 mg tablet Take 100 mg by mouth 2 (two) times a day. 1 Active furosemide (LASIX) 20 MG tablet Take 20 mg by mouth daily. 1 Active LANTUS SOLOSTAR U-100 INSULIN 100 unit/mL (3 mL) InPn injection pen INJECT 25 UNITS UNDER THE SKIN EVERY EVENING 1 Active insulin lispro (ADMELOG, HUMALOG) 100 unit/mL injection pen INJECT 6 UNITS SUBCUTANEOUSLY THREE TIMES A DAY 1 Active losartan-hydro CHLOROthiazide (HYZAAR) 100-25 mg per tablet Take 1 tablet by mouth daily. 1 Active PARoxetine (PAXIL) 20 MG tablet 1 Active pravastatin (PRAVACHOL) 20 MG tablet Take 20 mg by mouth nightly at bedtime. 1 Active JANTOVEN 5 mg tablet ALTERNATE BETWEEN 1&1/2 AND 2 TABLETS BY MOUTH DAILY DIRECTED 1 Active BD ULTRA-FINE BILLY PEN NEEDLE 32 gauge x 5/32 Ndle USE 3 TIMES A DAY 1 Active clotrimazole-b etamethasone (LOTRISONE) cream 1 Active Active Problems No known active problems Immunizations Immunization Administration Dates Next Due COVID-19 (Pre-01/07) Terrence Vaccine, rS-Ad26, PF 06/22/2020 Hiv 06/23/2020 INFLUENZA, SPLIT VIRUS, TRIVALENT PF 12/2018,12/10/2017,11/27/2016,11/21 Influenza High-Dose Quadriva lent Preservative Free IM 12/10/2019 Pneumococcal polysaccharide PPSV23 03/24/2018 Tdap 07/28/2020 Social History Tobacco Use Types Packs/Day Years [...] on file Sexual Orientation Not on file Last Filed Vital Signs Vital Sign Reading Time Taken Comments Blood Pressure 111/74 07/28/2020 10:54 AM EDT Pulse 59 07/28/2020 10:54 AM EDT Temperature 36.8 C (98.3 F) 07/28/2020 10:54 AM EDT Respiratory Rate 18 07/28/2020 10:54 AM EDT Oxygen Saturation 99% 07/28/2020 10:54 AM EDT Inhaled Oxygen Concentration - - Weight 108.4 kg (239 lb) 07/28/2020 10:54 AM EDT Height 188 cm (6' 2 ) 07/28/2020 10:54 AM EDT Body Mass Index 30.69 07/28/2020 10:54 AM EDT Plan of Treatment Health Maintenance Due Date Last Done Comments CREATININE LEVEL 1945 LIPID PANEL 1945 POTASSIUM LEVEL 1945 DEPRESSION SCREENING 1959 HEPATITIS C SCREENING 10/20/1965 ZOSTER VACCINES (1 of 2) 10/20/1997 PNEUMOCOCCAL VACCINES (50+ y ears) (2 of 2 - PCV) 03/24/2019 03/24/2018 RSV VACCINE (1 - 1-dose 75+ series) 10/20/2022 COVID-19 VACCINE (2 - 2023-2 5 season) 2023 06/22/2020 Adult Td,Tdap Booster 07/28/2030 07/28/2020 SMOKING STATUS SCREENING (On ce After 26 Yrs) Completed 07/28/2020 HEPATITIS A VACCINES Aged Out No long er eligible based on patient's age to complete this topic HIB VACCINES Aged Out No longer eligi ble based on patient's age to complete this topic MENINGOCOCCAL VACCINES (ACWY) Aged Out No longer eligible based on patient's age to complete this topic MENINGOCOCCAL VACCINES (B) Aged Out N o longer eligible based on patient's age to complete this topic Medical Devices Not on file Insurance MEDICARE PART A & B [facility] MEDICARE SUPPLEMENT MEDICARE PART A & B Member Subscriber Plan / Payer (Ef fective 2012-Present) Name:Jayy Hawk Member ID:[id number] Relation to Subscriber:Self Name:Jayy Hawk Subscriber ID:[id number] Payer ID:[id number] Group ID:Not on file Type:Medicare Address: [employer] [address] [place] [phone] [facility] MEDICARE SUPPLEMENT MEDICARE PART A & B [facility] MEDICARE SUPPLEMENT MEDICARE PART A & B Member Subscriber Plan / Payer (Ef fective 2012-Present) Name:Jayy Hawk Member ID:[id number] Relation to Subscriber:Self Name:Jayy Hawk Subscriber ID:[id number] Payer ID:[id number] Group ID:Not on file Type:Medicare Address: [employer] [address] MEDICARE SUPPLEMENT MEDICARE PART A & B Member Subscriber Plan / Payer (Ef fective 2012-Present) Name:Jayy Hawk Member ID:[id number] Relation to Subscriber:Self Name:Jayy Hawk Subscriber ID:[id number] Payer ID:[id number] Group ID:Not on file Type:Medicare Address: [employer] [address] [place] [id number] [facility] MEDICARE SUPPLEMENT MEDICARE PART A & B Member Subscriber Plan / Payer (Ef fective 2012-) Name:Jayy Hawk Member ID:[id number] Relation to Subscriber:Self Name:Jayy Hawk Subscriber ID:[id number] Payer ID:[id number] Group ID:Not on file Type:Medicare Address: [employer] [address] MEDICARE SUPPLEMENT MEDICARE PART A & B MEDICARE SUPPLEMENT MEDICARE PART A & B Member Subscriber Plan / Payer (Ef fective 2012-Present) Name:Jayy Hawk Member ID:[id number] Relation to Subscriber:Self Name:Jayy Hawk Subscriber ID:[id number] Payer ID:[id number] Group ID:Not on file Type:Medicare Address: [employer] [address] MEDICARE SUPPLEMENT MEDICARE PART A & B Member Subscriber Plan / Payer ( fective 2012-) Name:Jayy Hawk Member ID:[id number] Relation to Subscriber:Self Name:Jayy Hawk Subscriber ID:[id number] Payer ID:[id number] Group ID:Not on file Type:Medicare Address: [employer] [address] [place] [address] [place] [address] MEDICARE SUPPLEMENT Care Teams Supervisor Filling And Packing Relationship Specialty Start Date End Date Brody Goldberg MD [address] [place] [address] [place] [address] PCP - General Internal Medicine 07/28/20 Additional Source Comments The information contained in this document represents components of the legal health record. It is not the complete legal health record.[facility]
== END 2024-11-17 11:01 | disposition home or self-care (01) ==
LOC: HO.LNP 11:00
PROVIDERS: Visit Provider Internal Medicine
DX: I48.0 Paroxysmal atrial fibrillation (principal); Z79.01 Long term (current) use of anticoagulants
CPT/HCPCS: 85610

== ENCOUNTER 2024-12-01 10:35 | Outpatient (REF) | payer MEDICARE, SELFPAY ==
--- OUTSIDE RECORDS SUMMARY | 2020-07-28 11:05 | XMS_ITS | Encounter Summary ---
Author Organization [facility] Address [address] [place] [address] [place] [address] Phone Care Team Providers Care Production Metal Sprayer Name Role Phone Brody Goldberg MD Primary Care Provider Encounter Details Date Type Department Care Team (Late st Contact Info) Description 07/28/2020 11:05 AM EDT Hospital Encounter [facility] [address] [place] [address] Luis Manuel Cabello PA [address] [place] [phone] [email or web address] g Social History Tobacco Use Types Packs/Day [...] on filedocumented in this encounter Care Teams Production Metal Sprayer Relationship Specialty Start Date End Date Brody Goldberg MD [address] [place] [address] [place] [address] PCP - General Internal Medicine 07/28/20 documented as of this encounter Additional Source Comments The information contained in this document represents components of the legal health record. It is not the complete legal health record.[facility]
--- OUTSIDE RECORDS SUMMARY | 2024-10-08 07:00 | XMS_ITS ---
Author Organization Brody Goldberg MD Address [address] [place] [address] [phone] Care Team Providers Care Veneer Sorter Name Role Phone Brody Goldberg Primary Care Provider Results Component Value Reference Range Notes Prothrombin Time INR Reviewed date:10/08/2024 05:01:25 PM Interpretation: Performing Lab:[facility], [address] [place] [phone] Notes/Report: Prothrombin Time 28.8 10.9-12.4 SEC INTERNATIONAL NORM RATIO 2.5 0.9-1.1 INTERNATIONAL [...] Brody Goldberg MD [address] [place] [address] [id number] 10/08/2024 Brody Goldberg Paroxysmal atrial fibrillation I48.0 and Encounter for current long-term use of anticoagulants Z79.01 Assessments Encounter Date Diagnosis (ICD Code) Assessment Notes Treatment Notes Treatment Clinical Notes Section Notes 10/08/2024 Paroxysmal atrial fibrillation (ICD-10 - I48.0) 10/08/2024 Encounter for current long-term use of anticoagulants (ICD-10 - Z79.01) Plan Of Treatment Next Appt Details Provider Name:Brody Parikh syd, 04/09/2025 08:15:00 AM, [address] [place] [address], Suite [facility], [place], [place], [phone], Provider Name:Brody Parikh syd, 04/16/2025 09:00:00 AM, [address] [place] [address], Suite [facility], [place], [place], [phone], Provider Name:Brody Parikh ericr, 10/04/2025 08:00:00 AM, [address] [place] [address], [place] [address], [place], [place], [phone], Provider Name:Brody Parikh ericr, 10/11/2025 08:30:00 AM, [address] [place] [address], [address], [phone], Progress Notes * JENNIFER Jayy LDOB:1945 ([age] yo M)Acc No.[id number]:10/08/2024 Progress Note Patient: Jayy ANDRADE Provider: Breezy Goldberg MD :1945 A ge:78 Y S ex:Male Date:10/08/2024 Address:[address] [place], [place] [phone] Subjective: * Chief Complaints: * 1 . INR. * Medical History: Objective: * Vitals: Assessment: * Assessment: 1. P aroxysmal atrial fibrillation - I48.0 (Primary) 2 . E ncounter for current long-term use of anticoagulants - Z79.01 Plan: * Treatment: 2. E ncounter for current long-term use of anticoagulants L AB: Prothrombin Time INR (Collection Date & Time - 10/08/2024 08:45 AM) * * The named appointment provid er may or may not be the originator of this progress note, and it is not deemed complete until electronically signed by the appointment provider. Sign off status: Pending * Provider: Breezy Goldberg MD Date: 0 10/08/2024 Generated for Doron granados/Quang/Pauline on: 0 12/01/2024 02:04 PM EDT
--- OUTSIDE RECORDS SUMMARY | 2024-10-20 05:45 | XMS_ITS ---
Author Organization Brody Goldberg MD Address [address] [place] [phone] Care Team Providers Care Customer Acquisition Specialist Name Role Phone Brody Goldberg Primary Care Provider [phone] Results Component Value Reference Range Notes Prothrombin Time INR Reviewed date:10/20/2024 12:40:33 PM Interpretation: Performing Lab:[facility], [address] [place] [phone] Notes/Report: Prothrombin Time 32.9 10.9-12.4 SEC INTERNATIONAL NORM RATIO 2.9 0.9-1.1 INTERNATIONAL [...] Brody Goldberg MD [address] [place] [phone] 10/20/2024 Brody Goldberg Paroxysmal atrial fibrillation I48.0 and Encounter for current long-term use of anticoagulants Z79.01 Assessments Encounter Date Diagnosis (ICD Code) Assessment Notes Treatment Notes Treatment Clinical Notes Section Notes 10/20/2024 Paroxysmal atrial fibrillation (ICD-10 - I48.0) 10/20/2024 Encounter for current long-term use of anticoagulants (ICD-10 - Z79.01) Plan Of Treatment Next Appt Details Provider Name:Brody Parikh syd, 04/09/2025 08:15:00 AM, [address] [place] [address], Suite [facility], [place], [place], [phone], Provider Name:Brody Parikh syd, 04/16/2025 09:00:00 AM, [address] [place] [address], Suite [facility], [place], [place], [phone], Provider Name:Brody Parikh syd, 10/04/2025 08:00:00 AM, [address] [place] [address], [place] [address], [place], [place], [phone], Provider Name:Brody Parikh syd, 10/11/2025 08:30:00 AM, [address] [place] [address], [address], [phone], Progress Notes * JENNIFER Jayy LDOB:1945 ([age] yo M)Acc No.[id number]:10/20/2024 Progress Note Patient: Jayy ANDRADE Provider: Breezy Goldberg MD :1945 A ge:79 Y S ex:Male Date:10/20/2024 Address:[address] [place], [place] [phone] Subjective: * Chief Complaints: * 1 . INR. * Medical History: Objective: * Vitals: Assessment: * Assessment: 1. P aroxysmal atrial fibrillation - I48.0 (Primary) 2 . E ncounter for current long-term use of anticoagulants - Z79.01 Plan: * Treatment: 2. E ncounter for current long-term use of anticoagulants L AB: Prothrombin Time INR (Collection Date & Time - 10/20/2024 09:45 AM) * Procedure Codes: 3 6415 VENIPUNCT, ROUTINE* * * The named appointment provid er may or may not be the originator of this progress note, and it is not deemed complete until electronically signed by the appointment provider. Sign off status: Pending * Provider: Breezy Goldberg MD Date: 0 10/20/2024 Generated for Doron granados/Quang/Pauline on: 0 12/01/2024 02:04 PM EDT
--- OUTSIDE RECORDS SUMMARY | 2024-11-03 05:00 | XMS_ITS ---
Author Organization Brody Goldberg MD Address [address] [place] [phone] Care Team Providers Care Data Center Consultant Name Role Phone Brody Goldberg Primary Care Provider [phone] Results Component Value Reference Range Notes Prothrombin Time INR Reviewed date:11/03/2024 12:50:48 PM Interpretation: Performing Lab:[facility], [address] [place] [phone] Notes/Report: Prothrombin Time 31.6 10.9-12.4 SEC INTERNATIONAL [...] Brody Goldberg MD [address] [place] [phone] 11/03/2024 Brody Goldberg Encounter for curren t long-term use of anticoagulants Z79.01 and Paroxysmal atrial fibrillation I48.0 Assessments Encounter Date Diagnosis (ICD Code) Assessment Notes Treatment Notes Treatment Clinical Notes Section Notes 11/03/2024 Encounter for current long-term use of anticoagulants (ICD-10 - Z79.01) 11/03/2024 Paroxysmal atrial fibrillation (ICD-10 - I48.0) Plan Of Treatment Next Appt Details Provider Name:Brody Parikh syd, 04/09/2025 08:15:00 AM, [address] [place] [address], [address], [phone], Provider Name:Brody Parikh syd, 04/16/2025 09:00:00 AM, [address] [place] [address], [place] [address], [place], [place], [phone], Provider Name:Brody Parikh syd, 10/04/2025 08:00:00 AM, [address] [place] [address], [address], [phone], Provider Name:Brody Parikh syd, 10/11/2025 08:30:00 AM, [address] [place] [address], [address], [phone], Progress Notes * JENNIFER Jayy LDOB:1945 ([age] yo M)Acc No.[id number]:11/03/2024 Progress Note Patient: Jayy ANDRADE Provider: Breezy Goldberg MD :1945 A ge:79 Y S ex:Male Date:11/03/2024 Address:[address] [place] [address] Subjective: * Chief Complaints: * 1 . [...] 0 11/03/2024 Generated for Doron granados/Quang/Pauline on: 0 12/01/2024 02:03 PM EDT
--- OUTSIDE RECORDS SUMMARY | 2024-11-17 05:45 | XMS_ITS ---
Author Organization Brody Goldberg MD Address [address] [place] [phone] Care Team Providers Care Hairmasters Manager Name Role Phone Brody Goldberg Primary Care Provider Results Component Value Reference Range Notes Prothrombin Time INR Reviewed date:11/17/2024 12:36:36 PM Interpretation: Performing Lab:[facility], [address] [place] [phone] Notes/Report: Prothrombin Time 30.7 10.9-12.4 SEC INTERNATIONAL [...] Brody Goldberg MD [address] [place] [phone] 11/17/2024 Brody Goldberg Paroxysmal atrial fibrillation I48.0 ; Encounter for administration of vaccine Z23 and [facility] current use of anticoagulant therapy Z79.01 Assessments Encounter Date Diagnosis (ICD Code) Assessment Notes Treatment Notes Treatment Clinical Notes Section Notes 11/17/2024 Paroxysmal atrial fibrillation (ICD-10 - I48.0) 11/17/2024 Encounter for administration of vaccine (ICD-10 - Z23) 11/17/2024 [facility] current use of anticoagulant therapy (ICD-10 - Z79.01) Plan Of Treatment Next Appt Details Provider Name:Brody reyesr, 04/09/2025 08:15:00 AM, [address] [place] [address], [address] [place] [address], [phone], Provider Name:Brody reyesr, 04/16/2025 09:00:00 AM, [address] [place] [address], [address], [phone], Provider Name:Brody reyesr, 10/04/2025 08:00:00 AM, [address] [place] [address], [address], [phone], Provider Name:Brody Samir Kati reyesr, 10/11/2025 08:30:00 AM, [address] [place] [address], [address], [phone], Progress Notes * Jayy RODRIGUEZ LDOB:1945 ([age] yo M)Acc No.[id number]:11/17/2024 Progress Note Patient: Jayy ANDRADE Provider: Breezy Goldberg MD :1945 A ge:79 Y S ex:Male Date:11/17/2024 Address:[address] [place], [place] [phone] Subjective: * Chief Complaints: * 1 . [...] * Procedure Codes: 3 6415 VENIPUNCT, ROUTINE*, 41341 FLU VACC PRSV FREE INC ANTIG, 34656 VENIPUNCT, ROUTINE*, G0008 ADMN FLU VAC NO FEE SCHED SAME DAY * * The named appointment provid er may or may not be the originator of this progress note, and it is not deemed complete until electronically signed by the appointment provider. Sign off status: Pending * Provider: Breezy Goldberg MD Date: 0 11/17/2024 Generated for Doron granados/Quang/Kyitting on: 0 12/01/2024 02:03 PM EDT
--- OUTSIDE RECORDS SUMMARY | 2024-12-01 04:45 | XMS_ITS ---
Author Organization Brody Goldberg MD Address [address] [place] [phone] Care Team Providers Care Machine Umbrella Tipper Name Role Phone Brody Goldberg Primary Care Provider Results Component Value Reference Range Notes Prothrombin Time INR Reviewed date:12/01/2024 12:22:34 PM Interpretation: Performing Lab:[facility], [address] [place] [phone] Notes/Report: Prothrombin Time 38.8 10.9-12.4 SEC INTERNATIONAL [...] Goldberg MD [address] [place] [phone] 12/01/2024 Brody Goldberg Paroxysmal atrial fibrillation I48.0 and Encounter for current long-term use of anticoagulants Z79.01 Assessments Encounter Date Diagnosis (ICD Code) Assessment Notes Treatment Notes Treatment Clinical Notes Section Notes 12/01/2024 Paroxysmal atrial fibrillation (ICD-10 - I48.0) 12/01/2024 Encounter for current long-term use of anticoagulants (ICD-10 - Z79.01) Plan Of Treatment Next Appt Details Provider Name:Brody Parikh syd, 04/09/2025 08:15:00 AM, [address] [place] [address], [address] [place] [address], [phone], Provider Name:Brody Parikh syd, 04/16/2025 09:00:00 AM, [address] [place] [address], [place] [address], [place], [place], [phone], Provider Name:Brody Parikh syd, 10/04/2025 08:00:00 AM, [address] [place] [address], [address], [phone], Provider Name:Brody Parikh syd, 10/11/2025 08:30:00 AM, [address] [place] [address], [address], [phone], Progress Notes * JENNIFER, Jayy LDOB:1945 ([age] yo M)Acc No.[id number]:12/01/2024 Progress Note Patient: Jayy ANDRADE Provider: Breezy Goldberg MD :1945 A ge:79 Y S ex:Male Date:12/01/2024 Address:[address] [place], [place] [phone] Subjective: * Chief Complaints: * 1 . [...] 0 12/01/2024 Generated for Doron granados/Quang/Pauline on: 12/01/2024 02:03 PM EDT
[2024-12-01 11:38] LABS: INTERNATIONAL NORM RATIO 3.4 (0.9-1.1); Prothrombin Time 38.8 SEC (10.9-12.4)
--- OUTSIDE RECORDS SUMMARY | 2024-12-01 14:03 | XMS_ITS | Clinical Summary ---
Author Organization [facility] Address [address] [address] Phone Care Team Providers Care Rn Infusion Name Role Phone Brody Goldberg MD Primary [...] (1 of 2) 10/20/1997 PNEUMOCOCCAL VACCINES (50+ years) (2 of 2 - PCV) 03/24/2019 03/24/2018 RSV VACCINE (1 - 1-dose 75+ series) 10/20/2022 INFLUENZA VACCINE (#1) 2024 0, 11/25/2018, 12/10/2017, Additional history exists COVID-19 VACCINE ( season) 2024 06/22/2020 Adult Td,Tdap Booster 07/28/2030 07/28/2020 SMOKING STATUS SCREENING (Once After 26 Yrs) Completed 07/28/2020 HEPATITIS A [...] file Insurance MEDICARE PART A & B [facility] MEDICARE SUPPLEMENT MEDICARE PART A & B MEDICARE SUPPLEMENT [facility] Address: [facility] [employer] [address] [place] [phone] MEDICARE PART A & B MEDICARE SUPPLEMENT MEDICARE PART A & B Member Subscriber Plan / Payer (Ef fective 2012-Present) Name:Jayy Hawk Member ID:[id number] Relation to Subscriber:Self Name:Jayy Hawk Subscriber ID:[id number] Payer ID:[id number] Group ID:Not on file Type:Medicare Address: [employer] [address] [place] [id number] [place] [address] MEDICARE SUPPLEMENT MEDICARE PART A & B Member Subscriber Plan / Payer (Ef fective 2012-Present) Name:Jayy Hawk Member ID:[id number] Relation to Subscriber:Self Name:Jayy Hawk Subscriber ID:[id number] Payer ID:[id number] Group ID:Not on file Type:Medicare Address: [employer] [address] [place] [address] [facility] MEDICARE SUPPLEMENT MEDICARE PART A & B Member Subscriber Plan / Payer (Ef fective 2012-Present) Name:KennJayy Member ID:[id number] Relation to Subscriber:Self Name:KennJayy Subscriber ID:[id number] Payer ID:[id number] Group ID:Not on file Type:Medicare Address: [employer] [address] [place] [address] MEDICARE SUPPLEMENT MEDICARE PART A & B Member Subscriber Plan / Payer (Ef fective 2012-Present) Name:Jayy Hawk Member ID:[id number] Relation to Subscriber:Self Name:KennJayy Subscriber ID:[id number] Payer ID:[id number] Group ID:Not on file Type:Medicare Address: [employer] [address] MEDICARE SUPPLEMENT MEDICARE PART A & B Member Subscriber Plan / Payer (Ef fective 2012-Present) Name:Jayy Hawk Member ID:[id number] Relation to Subscriber:Self Name:KennJayy Subscriber ID:[id number] Payer ID:[id number] Group ID:Not on file Type:Medicare Address: [employer] [address] [place] [address] MEDICARE SUPPLEMENT MEDICARE PART A & B Member Subscriber Plan / Payer (Ef fective 2012-) Name:Jayy Hawk Member ID:[id number] Relation to Subscriber:Self Name:Jayy Hawk Subscriber ID:[id number] Payer ID:[id number] Group ID:Not on file Type:Medicare Address: [employer] [address] [place] [address] [place] [phone] Care Teams Rn Infusion Relationship Specialty Start Date End Date Brody Goldberg MD [address] [place] [address] [place] [address] PCP - General Internal Medicine 07/28/20 Additional Source Comments The information contained in this document represents components of the legal health record. It is not the complete legal health record.[facility]
--- OUTSIDE RECORDS SUMMARY | 2024-12-01 14:03 | XMS_ITS | Patient Health Record ---
Author Organization [facility] Address [address] [place] [address] Care Team Providers Care Manager Council Name Role Phone Brody Goldberg MD Primary Care Provider Armando Hunt Unavailable [phone] Reason For Referral No Information Medications Medication [...] Status W/U Status Risk Notes Problem Diarrhea (39666793) Diarrhea (787.91) Active confirmed Problem Change in bowel habit (36128281) Change in bowel habits (787.99) Active confirmed Problem History of adenomatous polyp of colon (378609969) History of adenomatous polyp of colon (V12.72) Active confirmed Problem Weight loss (677503175) Weight loss (783.21) Active confirmed Plan Of Treatment Future Test Test Name Order Date COLONOSCOPY 09/03/2013 Insurance Providers Payer Name Payer Address Payer Phone Subscriber Number Group Number Insured Name Patient Relationship to Insured Coverage Start Date Coverage End Date MEDICARE OF [place] [address] [place] [address] [id number] KEYSHA RODRIGUEZ Self - patient is the insured [facility] [address] [place] [address] [id number] KEYSHA RODRIGUEZ Self - patient is the insured Medical (General) History Medical History History ICD Code NIDDM hypertension Denies RI,CVA,Lung disease,renal disease Atrial fib Anxiety On Finasteride [...]
--- OUTSIDE RECORDS SUMMARY | 2024-12-01 14:04 | XMS_ITS | Patient Health Record ---
Author Organization Brody Goldberg MD Address [address] [place], [place] [id number] Care Team Providers Care Personnel Worker Name Role Phone Brody Goldberg Primary Care Provider Allergies Allergen (clinical drug ingredient) Drug/Non Drug Allergy documented on EMR Reaction Allergy Type Onset Date Status metformin Metformin HCl diarrhea Drug Allergy Act enzo lisinopril Lisinopril couigh Drug Allergy Activ e Results Component Value Reference Range Notes Prothrombin Time INR Reviewed date:12/03/2023 12:04:42 PM Interpretation: Performing Lab:[address] [phone] Notes/Report: Prothrombin Time 23.3 11.1-13.3 SEC INTERNATIONAL [...] INR Reviewed date:12/17/2023 12:24:57 PM Interpretation: Performing Lab:[address] [phone] Notes/Report: Prothrombin Time 27.8 10.9-12.4 SEC INTERNATIONAL [...] INR Reviewed date:01/21/2024 12:49:48 PM Interpretation: Performing Lab:[address] [phone] Notes/Report: Prothrombin Time 31.9 10.9-12.4 SEC INTERNATIONAL [...] INR Reviewed date:02/17/2024 08:32:12 AM Interpretation: Performing Lab:[facility], [address] [place] [phone] Notes/Report: Prothrombin Time 20.5 10.9-12.4 SEC INTERNATIONAL [...] INR Reviewed date:02/25/2024 12:31:15 PM Interpretation: Performing Lab:[facility], [address] [place] [phone] Notes/Report: Prothrombin Time 26.0 10.9-12.4 SEC INTERNATIONAL [...] INR Reviewed date:03/12/2024 12:34:57 PM Interpretation: Performing Lab:[address] [phone] Notes/Report: Prothrombin Time 32.7 10.9-12.4 SEC INTERNATIONAL [...] INR Reviewed date:03/24/2024 12:22:39 PM Interpretation: Performing Lab:[address] [phone] Notes/Report: Prothrombin Time 25.6 10.9-12.4 SEC INTERNATIONAL [...] Panel Reviewed date:04/02/2024 05:16:30 PM Interpretation: Performing Lab:[address], [place] [address] Notes/Report: Bilirubin Total 0.5 0.0-1.0 mg/dL Bilirubin Direct 0.2 0.0-0.5 mg/dL Aspartate Amino Transferase 24 5-37 U/L Alanine Aminotransferase 18 0-40 U/L Total Protein 7.3 6.5-8.0 g/dL Albumin Level 4.1 3.5-5.0 g/dL Alkaline Phosphatase 65 39-117 U/L Glucose Fasting Reviewed date:04/02/2024 05:15:41 PM Interpretation: Performing Lab:[facility], [address] [place] [phone] Notes/Report: Glucose Fasting 153 60-99 mg/dL A fasting glucose of 126 mg/dl or greater on more than one occasion is considered diagnostic of diabetes. Lipid Panel with Reflex Reviewed date:04/02/2024 05:16:03 PM Interpretation: Performing Lab:[facility], [address] [place] [phone] Notes/Report: Triglycerides 196 <150 mg/dL Desirable Triglyceride: [...] A1c Reviewed date:04/02/2024 05:16:13 PM Interpretation: Performing Lab:[facility], [address] [place] [phone] Notes/Report: Hemoglobin A1c % 7.1 <6.0 % [...] average glucose, using the formula of the N7D-[place] Average Glucose study (ADAG), Diabetes Care, Vol.31,#8, 2007 Prothrombin Time INR Reviewed date:04/09/2024 12:14:10 PM Interpretation: Performing Lab:[facility], [address] [place] [phone] Notes/Report: Prothrombin Time 31.7 10.9-12.4 SEC INTERNATIONAL [...] INR Reviewed date:06/30/2024 11:32:00 AM Interpretation: Performing Lab:[facility], [address] [place] [phone] Notes/Report: Prothrombin Time 35.1 10.9-12.4 SEC INTERNATIONAL [...] INR Reviewed date:07/14/2024 12:30:07 PM Interpretation: Performing Lab:[facility], [address] [place] [phone] Notes/Report: Prothrombin Time 25.2 10.9-12.4 SEC INTERNATIONAL [...] INR Reviewed date:07/28/2024 11:29:24 AM Interpretation: Performing Lab:[facility], [address] [place] [phone] Notes/Report: Prothrombin Time 27.8 10.9-12.4 SEC INTERNATIONAL [...] INR Reviewed date:08/14/2024 07:43:22 AM Interpretation: Performing Lab:[facility], [address] [place] [phone] Notes/Report: Prothrombin Time 21.6 10.9-12.4 SEC INTERNATIONAL [...] INR Reviewed date:08/25/2024 11:30:24 AM Interpretation: Performing Lab:[facility], [address] [place] [phone] Notes/Report: Prothrombin Time 25.1 10.9-12.4 SEC INTERNATIONAL [...] INR Reviewed date:09/08/2024 10:54:20 AM Interpretation: Performing Lab:[facility], [address] [place] [phone] Notes/Report: Prothrombin Time 24.8 10.9-12.4 SEC INTERNATIONAL [...] Complete Blood Count Auto Di ff Reviewed date:09/22/2024 12:24:19 PM Interpretation: Performing Lab:[facility], [address] [place] [phone] Notes/Report: White Blood Count 8.7 4.8-10.8 X10*3/uL Red Blood Count 5.02 4.60-5.80 X10*6/uL Hemoglobin 16.0 14.0-18.0 g/dl Hematocrit 48.4 42.0-52.0 % Mean Corpuscular Volume 96.4 80.0-98.0 fL Mean Corpuscular Hemoglobin 31.9 27.0-33.0 pg Mean Corpuscular HGB Conc 33.1 31.0-36.0 g/dl Red Cell Distribution Width 13.7 11.0-16.0 % Platelet Count 101 160-400 X10*3/uL Mean Platelet Volume 11.5 9.4-12.4 fL Neutrophils Percent Auto 61.9 45-73 % Imm Gran Pct Auto 0.3 0.0-0.4 % Lymphocytes Percent Auto 27.9 20-40 % Monocytes Percent Auto 7.7 2-11 % Eosinophils Percent Auto 1.7 0-4 % Basophils Percent Auto 0.5 0-2 % NRBC Pct Auto 0.0 0.0-0.2 /100WBC Neutrophils Absolute Auto 5.5 2.0-8.3 x10*3/uL Imm Gran Abs Auto 0.03 0.00-0.03 X10*3/uL Lymphocytes Absolute Auto 2.5 1.2-4.9 X10*3/uL Monocytes Absolute Auto 0.7 0.1-1.2 X10*3/uL Eosinophils Absolute Auto 0.2 0.0-0.4 X10*3/uL Basophils Absolute Auto 0.0 0.0-0.2 X10*3/uL NRBC Abs Auto 0.000 0.0-0.012 X10*3/uL White Blood Count 8.7 4.8-10.8 X10*3/uL Red Blood Count 5.02 4.60-5.80 X10*6/uL Hemoglobin 16.0 14.0-18.0 g/dl Hematocrit 48.4 42.0-52.0 % Mean Corpuscular Volume 96.4 80.0-98.0 fL Mean Corpuscular Hemoglobin 31.9 27.0-33.0 pg Mean Corpuscular HGB Conc 33.1 31.0-36.0 g/dl Red Cell Distribution Width 13.7 11.0-16.0 % Platelet Count 101 160-400 X10*3/uL Mean Platelet Volume 11.5 9.4-12.4 fL Neutrophils Percent Auto 61.9 45-73 % Imm Gran Pct Auto 0.3 0.0-0.4 % Lymphocytes Percent Auto 27.9 20-40 % Monocytes Percent Auto 7.7 2-11 % Eosinophils Percent Auto 1.7 0-4 % Basophils Percent Auto 0.5 0-2 % NRBC Pct Auto 0.0 0.0-0.2 /100WBC Neutrophils Absolute Auto 5.5 2.0-8.3 x10*3/uL Imm Gran Abs Auto 0.03 0.00-0.03 X10*3/uL Lymphocytes Absolute Auto 2.5 1.2-4.9 X10*3/uL Monocytes Absolute Auto 0.7 0.1-1.2 X10*3/uL Eosinophils Absolute Auto 0.2 0.0-0.4 X10*3/uL Basophils Absolute Auto 0.0 0.0-0.2 X10*3/uL NRBC Abs Auto 0.000 0.0-0.012 X10*3/uL C ORRECTED REPORT C ORRECTED REPORT Comprehensive [place]. Panel Fa st Reviewed date:09/22/2024 12:50:27 PM Interpretation: Performing Lab:[address] [phone] Notes/Report: Sodium 141 135-145 mmol/L Potassium 4.1 3.3-5.1 mmol/L Chloride 102 96-108 mmol/L Carbon Dioxide 33 22-29 mmol/L Anion Gap 10 12-20 Blood Urea Nitrogen 24 9-16 mg/dL Creatinine 0.98 0.5-1.4 mg/dL Estimated Glomerular Filt Rate > 60 Chronic Kidney Disease: Estimated GFR < 60 mL/min/1.73m2 Severe Kidney Disease: Estimated GFR < 15 mL/min/1.73m2 Glucose Fasting 135 60-99 mg/dL A fasting glucose of 126 mg/dl or greater on more than one occasion is considered diagnostic of diabetes. Calcium 9.2 8.4-10.2 mg/dL Bilirubin Total 0.5 0.0-1.0 mg/dL Aspartate Amino Transferase 25 5-37 U/L Alanine Aminotransferase 19 0-40 U/L Total Protein 6.8 6.5-8.0 g/dL Albumin Level 4.2 3.5-5.0 g/dL Alkaline Phosphatase 56 39-117 U/L Lipid Panel Reviewed date:09/22/2024 12:24:29 PM Interpretation: Performing Lab:[facility], [address] [place] [phone] Notes/Report: Triglycerides 171 <150 mg/dL Desirable Triglyceride: less than 150 mg/dL Borderline High Triglyceride 150-199 mg/dL High Triglyceride: 200-499 mg/dL Very High Triglyceride: greater than or equal to 5OO mg/dL Cholesterol 131 <200 mg/dL Desirable Cholesterol: less than 200 mg/dL Borderline High Cholesterol: 200-239 mg/dL High Cholesterol: greater than 239 mg/dL LDL Cholesterol Calculated 60 <100 mg/dL Desirable LDL: less than 100 mg/dL Near Optimal/Above Optimal LDL: 110-129 mg/dL Borderline High LDL: 130-159 mg/dL High LDL: 160-189 mg/dL Very High LDL: greater than or equal to 190 mg/dL HDL Cholesterol 37 >40 mg/dL Desirable HDL: greater than 40 mg/dL Note: This HDL assay may give artificially low results in patients with liver disease. PSA,Total (Free>4and<10) Reviewed date:09/22/2024 12:23:28 PM Interpretation: Performing Lab:[facility], [address] [place] [phone] Notes/Report: PSA,Total (Free>4and<10) 1.22 0.00-4.00 ng/mL A Free PSA was not [...] Chemiluminescent Microparticle Immunoassay (CMIA) Microalbumin, Random Reviewed date:09/22/2024 12:32:32 PM Interpretation: Performing Lab:[facility], [address] [place] [phone] Notes/Report: Creatinine Urine 102.44 Microalbumin Urine 27.0 Microalbum/Creatinine Ratio Ur 26.3 <30 ug/mg cr Albumin/Creatinine Ratio Reference Ranges: Normal: < 30 ug/mg creatinine Microalbuminuria: 30 - 300 ug/mg creatinine Clinical Albuminuria: > 300 ug/mg creatinine Hemoglobin A1c Reviewed date:09/22/2024 12:32:41 PM Interpretation: Performing Lab:[facility], [address] [place] [phone] Notes/Report: Hemoglobin A1c % 7.0 <6.0 % Hemoglobin A1C Reference Range Adults: 4.8 - 6.0 % Non diabetic: < 6.0 % Goal: < 7.0 % Additional Action Suggested: > 8.0 % Note: Hemoglobin A1c results are invalid for patients with abnormal amounts of HbF. Blood transfusions may impact the HbA1c concentration in the patient sample. Estimated Average Glucose 154 eAG = Estimated average glucose which is %A1C expressed as average glucose, using the formula of the B1T-Cbyohhf Average Glucose study (ADAG), Diabetes Care, Vol.31,#8, Oct. 2007 UA ClnCatch+Micro w/rflx Cul t Reviewed date:09/22/2024 12:46:13 PM Interpretation: Performing Lab:[facility], [address] [place] [phone] Notes/Report: Urine, Clean Catch Color Urine Yellow Appearance Urine Turbid PH 5.5 5.0-9.0 Glucose Urine UA Negative Negative mg/dL Urine Blood Negative Negative Specific South Range - Urine 1.015 1.005-1.025 Urine Protein Negative Neg-Trace mg/dL Urine Ketones Negative Negative mg/dL Nitrite Urine Negative Negative Leukocyte Esterase Urine Negative Negative RBC Urine 0-2 0-2 /HPF WBC Urine 0-5 0-5 /HPF Squamous Epithelial Cell Urine 0-2 0-2 /HPF Bacteria Urine None Seen None Seen Hyaline Casts Urine 0-2 0-2 /LPF Prothrombin Time INR Reviewed date:10/08/2024 05:01:25 PM Interpretation: Performing Lab:[facility], [address] [place] [phone] Notes/Report: Prothrombin Time 28.8 10.9-12.4 SEC INTERNATIONAL [...] 2.5 - 3.5 Prothrombin Time INR Reviewed date:10/20/2024 12:40:33 PM Interpretation: Performing Lab:[facility], [address] [place] [phone] Notes/Report: Prothrombin Time 32.9 10.9-12.4 SEC INTERNATIONAL [...] 2.5 - 3.5 Prothrombin Time INR Reviewed date:11/03/2024 12:50:48 PM Interpretation: Performing Lab:[facility], [address] [place] [phone] Notes/Report: Prothrombin Time 31.6 10.9-12.4 SEC INTERNATIONAL [...] 2.5 - 3.5 Prothrombin Time INR Reviewed date:11/17/2024 12:36:36 PM Interpretation: Performing Lab:[facility], [address] [place] [phone] Notes/Report: Prothrombin Time 30.7 10.9-12.4 SEC INTERNATIONAL [...] 2.5 - 3.5 Prothrombin Time INR Reviewed date:12/01/2024 12:22:34 PM Interpretation: Performing Lab:[facility], [address] [place] [phone] Notes/Report: Prothrombin Time 38.8 10.9-12.4 SEC INTERNATIONAL [...] INR Reviewed date:01/02/2024 08:22:51 AM Interpretation: Performing Lab:[facility], [address] [place] [phone] Notes/Report: Prothrombin Time 42.1 10.9-12.4 SEC INTERNATIONAL [...] INR Reviewed date:01/07/2024 01:11:11 PM Interpretation: Performing Lab:[facility], [address] [place] [phone] Notes/Report: Prothrombin Time 31.0 10.9-12.4 SEC INTERNATIONAL [...] Blood Reviewed date:01/05/2024 05:02:16 PM Interpretation: Performing Lab:[facility], [address] [place] [phone] Notes/Report: Glucose, Whole Blood 190 60-115 mg/dL METER #: [id number] Testing performed in the [facility]. Lipid Panel Reviewed date:03/17/2024 04:35:59 PM Interpretation: Performing Lab:[facility], [address] [place] [phone] Notes/Report: Triglycerides 207 <150 mg/dL Desirable Triglyceride: [...] A1c Reviewed date:03/15/2024 04:56:43 PM Interpretation: Performing Lab:[facility], [address] [place] [phone] Notes/Report: Hemoglobin A1c % 7.2 <6.0 % [...] average glucose, using the formula of the O8D-Ldprpkb Average Glucose study (ADAG), Diabetes Care, Vol.31,#8, Oct. 2007 Glucose, Whole Blood Reviewed date:03/17/2024 04:28:32 PM Interpretation: Performing Lab:[facility], [address] [place] [phone] Notes/Report: Glucose, Whole Blood 170 60-115 mg/dL METER #: [id number] Testing performed in the [facility] , [address], [facility]. Hold Red Reviewed date:04/02/2024 05:17:01 PM Interpretation: Performing Lab:[facility], [address] [place] [phone] Notes/Report: Hold Red See Note Specimen held untested for 24 hours; Call to request Chemistry testing. Glucose, Whole Blood Reviewed date:08/11/2024 11:12:03 AM Interpretation: Performing Lab:[facility], [address] [place] [phone] Notes/Report: Glucose, Whole Blood 134 60-115 mg/dL METER #: [id number] Testing performed in the [facility] , [address], [facility]. Complete Blood Count Auto Di ff Reviewed date:09/15/2024 04:47:15 PM Interpretation: Performing Lab:[facility], [address] [place] [phone] Notes/Report: White Blood Count 10.6 4.8-10.8 X10*3/uL [...] INR Reviewed date:09/15/2024 12:34:11 PM Interpretation: Performing Lab:[address] [phone] Notes/Report: Prothrombin Time 22.1 10.9-12.4 SEC INTERNATIONAL [...] Panel Reviewed date:09/15/2024 12:40:51 PM Interpretation: Performing Lab:[address] [phone] Notes/Report: Sodium 141 135-145 mmol/L Potassium 4.5 [...] 60-115 mg/dL Calcium 9.9 8.4-10.2 mg/dL CT cervical spine wo con Reviewed date:09/14/2024 01:32:53 PM Interpretation: Performing Lab: Notes/Report: [place] [address] [address] Scan Report Signed Patient: Kristina Rodriguez MR#: [id number] : 1945 Acct:[id number] Age/Sex: 78 / M ADM Date: 09/13/24 Loc: HO.ED Attending Dr: Ordering Physician: Liz Levin Date of Service: 09/13/24 Procedure(s): CT cervical spine wo IV con Accession Number(s): [id number] cc: Brody Goldberg MD; Liz Levin Report Number: [id number]: Total DLP = 503.00 mGy-cm CLINICAL HISTORY: [...] in OV> 09/13/241813 DD/ 12 TD/TT: 09/13/241812 Edge Runner: [address] [address] [address] Scan Report Signed Patient: Kristina Rodriguez MR#: [id number] : 1945 Acct:[id number] Age/Sex: 78 / M ADM Date: 09/13/24 Loc: HO.ED Attending Dr: Ordering Physician: Liz Levin Date of Service: 09/13/24 Procedure(s): CT cervical spine wo IV con Accession Number(s): [id number] cc: Brody Goldberg MD; Liz Levin Report Number: [id number]: Total DLP = 503.00 mGy-cm CLINICAL HISTORY: [...] has be en electronically signed by: Deric Urrutai MD on 09/13/2024 18:13:32 Dictated By: Deric Urrutia MD Signed By: <Electronically signed by Deric Urrutia MD in OV> 09/13/241813 DD/ 12 TD/TT: 09/13/241812 Edge Runner: CT head/brain wo con Reviewed date:10/08/2024 01:13:57 PM Interpretation:10-08-2024 Performing Lab: Notes/Report: [place] [address] [address] Scan Report Signed Patient: Kristina Rodriguez MR#: [id number] : 1945 Acct:[id number] Age/Sex: 78 / M ADM Date: 09/13/24 Loc: HO.ED Attending Dr: Ordering Physician: Liz Levin Date of Service: 09/13/24 Procedure(s): CT head/brain wo IV con Accession Number(s): [id number] cc: Brody Goldberg MD; Liz Levin Report Number: [id number]: Total DLP = 840.00 mGy-cm CLINICAL HISTORY: [...] in OV> 09/13/241807 DD/ 06 TD/TT: 09/13/241806 Edge Runner: [place] [address] CT Scan Report Signed Patient: Kristina Rodriguez MR#: [id number] : 1945 Acct:[id number] Age/Sex: 78 / M ADM Date: 09/13/24 Loc: .ED Attending Dr: Ordering Physician: Liz Levin Date of Service: 09/13/24 Procedure(s): CT head/brain wo IV con Accession Number(s): [id number] cc: Brody Goldberg MD; Liz Levin Report Number: [id number]: Total DLP = 840.00 mGy-cm CLINICAL HISTORY: [...] in OV> 09/13/241807 DD/ 06 TD/TT: 09/13/241806 Edge Runner: SLIDE REVIEW Reviewed date:09/22/2024 12:30:18 PM Interpretation: Performing Lab:[facility], [address] [place] [phone] Notes/Report: SLIDE REVIEW VERIFIED Reason For Referral No Information Medications Medication SIG (Take, Route, Frequency, Duration) Notes Start Date End Date Status Warfarin Sodium 5 MG ALTERNATING BETWEEN TAKING 1.5 TABLETS BY MOUTH EVERY DAY AND 2 TABLETS EVERY DAY DIRECTED Active HumaLOG KwikPen 100 UNIT/ML 8 units three times a day Active Pravastatin Sodium 40 MG 1 tablet Orally Once a day Active Lantus SoloStar 100 UNIT/ML 26 units Qpm once a day Acti ve Losartan Potassium-HCTZ 100-25 MG TAKE 1 TABLET BY MOUTH EVERY DAY Active Diprolene AF 0.05 % 1 application Cupola Charger Insulation ally Once a day for 30 days 02/23/2019 Not-Takin g diazePAM 5 MG (Schedule IV Drug) T KVNG ONE TABLET BY MOUTH EVERY 6 HOURS NEEDED FOR MUSCLE SPASM Oral for 3 Not-Taking Atenolol 50 MG 1.5 tabs twice a day Active Vitamin D 50 MCG (1999 UT) 1 capsule Orally Once a day for 30 day(s) Active Januvia 50 MG as directed Orally O nce a day for 30 days 06/10/2017 Not-Taking FreeStyle Lite Test - USE TO TEST BLOOD SUGAR ONCE DAILY for 50 Active Onglyza 5 MG 1 tablet Orally Once a day for 30 day(s) 06/13/2017 Not-Taking Aspirin Adult Low Strength 81 MG 1 tablet Orally Once a day for 30 day(s) Not-Taking Mupirocin 2 % 1 application Cupola Charger Insulation ally Twice a day for 5 day(s) 03/28/2021 Active Ativan 0.5 MG 1 tablet at bedtime as needed Orally Once a day for 30 days 06/21/2011 Not-Taking PARoxetine HCl 20 MG TAKE 1 TABLET BY 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) PVC (premature ventricular contraction) (I49.3) Active confirmed Problem 597335601 Thrombocytopenia (D69.6) Active confirmed Problem 257403880 Tubular adenoma (D36.9) Active confirmed Problem 07286341 Nevus (D22.9) Active confirmed Problem Mixed hyperlipidemia (250691505) Mixed hyperlipidemia (E78.2) Active confirmed Problem Paroxysmal atrial fibrillation (062515923) Paroxysmal atrial fibrillation (I48.0) Active confirmed Problem 8961847 Primary insomnia (F51.01) Active confirmed Problem 47580088 Lumbar disc disease (M51.9) Active confirmed Problem 94505605 Essential hypertension (I10) Active confirmed Problem Long-term current use of anticoagulant (777557090) 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 (Z79.01) Active confirmed Problem Long-term current use of anticoagulant (158834904) 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 therapy (Z79.01) Active confirmed Problem 37634707 Type 2 diabetes mellitus with 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) Active confirmed Problem 532914026 Acute systolic congestive heart failure (I50.21) Active confirmed Problem Pressure injury (morphologic abnormality) (8964314257) Pressure sore (L89.90) Active confirmed Problem Long-term current use of anticoagulant (266128933) Encounter for current long-term use of anticoagulants (Z79.01) Active confirmed Problem 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) Abnormal platelets (D69.1) Active confirmed Problem 991720218 Temporary low platelet count (D69.6) Active confirmed Problem Benign neoplasm of cerebral meninges (46798620) Meningioma (D32.9) Active confirmed Problem 234432389 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 Problem 41556103 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) Active confirmed Problem 93547371689794644 Pressure injur y of sacral region, unstageable (L89.150) Active confirmed Vital Signs Blood pressure diastolic 62 mm Hg 10/08/2024 Height 73.5 in 10/08/2024 Blood pressure systolic 112 mm Hg 10/08/2024 Weight 256 lbs 10/08/2024 BMI 33.31 kg/m2 10/08/2024 Encounters Encounter Location Date Provider Diagnosis Brody Goldberg MD [address] [place] [address] Drive [address] [place], [place] [id number] 12/03/2023 Brody Bombardier Paroxysmal atrial fibrillation I48.0 ; Encounter for immunization Z23 and Encounter for current long-term use of anticoagulants Z79.01 Brody Goldberg MD [address] [place] [id number] 12/17/2023 Brody Bombardier Paroxysmal atrial fibrillation I48.0 and Encounter for current long-term use of anticoagulants Z79.01 Brody Goldberg MD [address] [place] [id number] 01/21/2024 Brody Bombardier Paroxysmal atrial fibrillation I48.0 and custodial current use of anticoagulant Z79.01 Brody Goldberg MD [address] [place] [id number] 02/04/2024 Brody Bombardier Paroxysmal atrial fibrillation I48.0 and custodial current use of anticoagulant Z79.01 Brody Goldberg MD [address] [place] [id number] 02/25/2024 Brody Bombardier Paroxysmal atrial fibrillation I48.0 and 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 Z79.01 Brody Goldberg MD [address] [place] [id number] 03/12/2024 Brody Bombardier Paroxysmal atrial fibrillation I48.0 and custodial current use of anticoagulant Z79.01 Brody Goldberg MD [address] [place] [address] [id number] 03/24/2024 Brody Bombardier Paroxysmal atrial fibrillation I48.0 and custodial current use of anticoagulant therapy Z79.01 Brody Goldberg MD [address] [place] [id number] 04/02/2024 Brody Bombardier Mixed hyperlipidemia E78.2 and 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 Brody Goldberg MD [address] [place] [address] [id number] 04/09/2024 Brody Bombardier Paroxysmal atrial fibrillation I48.0 and Encounter for current long-term use of anticoagulants Z79.01 Brody Goldberg MD [address] [place] [address] [id number] 06/30/2024 Brody Bombardier Paroxysmal atrial fibrillation I48.0 and Encounter for current long-term use of anticoagulants Z79.01 Brody Goldberg MD [address] [place] [id number] 07/14/2024 Brody Bombardier Paroxysmal atrial fibrillation I48.0 and Encounter for current long-term use of anticoagulants Z79.01 Brody Goldberg MD [address] [place] [id number] 07/28/2024 Brody Bombardier Paroxysmal atrial fibrillation I48.0 and Encounter for current long-term use of anticoagulants Z79.01 Brody Goldberg MD [address] [place] [address] [id number] 08/11/2024 Brody Bombardier Paroxysmal atrial fibrillation I48.0 and Encounter for current long-term use of anticoagulants Z79.01 Brody Goldberg MD [address] [place] [address] [id number] 08/25/2024 Brody Bombardier Paroxysmal atrial fibrillation I48.0 and Encounter for current long-term use of anticoagulants Z79.01 Brody Goldberg MD [address] [place] [address] [id number] 09/08/2024 Brody Bombardier Paroxysmal atrial fibrillation I48.0 and Encounter for current long-term use of anticoagulants Z79.01 Brody Goldberg MD [address] [place] [address] [id number] 09/22/2024 Brody Goldberg Mixed hyperlipidemia E78.2 ; 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 ; Thrombocytopenia D69.6 and Acute systolic congestive heart failure I50.21 Brody Goldberg MD [address] [place] [address] [id number] 10/08/2024 Brody Bombardier Paroxysmal atrial fibrillation I48.0 and Encounter for current long-term use of anticoagulants Z79.01 Brody Goldberg MD [address] [place] [address] [id number] 10/20/2024 Brody Bombardier Paroxysmal atrial fibrillation I48.0 and Encounter for current long-term use of anticoagulants Z79.01 Brody Goldberg MD [address] [place] [address] [id number] 11/03/2024 Brody Goldberg Encounter for curren t long-term use of anticoagulants Z79.01 and Paroxysmal atrial fibrillation I48.0 rBody Goldberg MD [address] [place] [address] [id number] 11/17/2024 Brody Calverter Paroxysmal atrial fibrillation I48.0 ; Encounter for administration of vaccine Z23 and custodial current use of anticoagulant therapy Z79.01 Brody Goldberg MD [address] [place] [address] [id number] 12/01/2024 Brody Bombardier Paroxysmal atrial fibrillation I48.0 and Encounter for current long-term use of anticoagulants Z79.01 Brody Goldberg MD [address] [place] [address] [id number] 12/31/2023 Brody Bombardier Paroxysmal atrial fibrillation I48.0 and Encounter for current long-term use of anticoagulants Z79.01 Brody Goldberg MD [address] [place] [address] [id number] 01/07/2024 Brody Mirianardier Paroxysmal atrial fibrillation I48.0 and Encounter for current long-term use of anticoagulants Z79.01 Brody Goldberg MD [address] [place] [address] [id number] 04/09/2024 Brody Mirianardivikki Paroxysmal atrial fibrillation I48.0 ; 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 ; Pressure injury of sacral region, 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 and Mixed hyperlipidemia E78.2 Brody Goldberg MD [address] [place] [address] [id number] 10/08/2024 Brody Velaardier Meningioma D32.9 ; Paroxysmal atrial fibrillation I48.0 ; 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 ; PVC (premature ventricular contraction) I49.3 ; Essential hypertension I10 ; Mixed hyperlipidemia E78.2 and Acute systolic congestive heart failure I50.21 Brody Goldberg MD [address] [place] [address] [id number] 03/24/2024 Brody Goldberg Pressure sore L89.90 Brody Goldberg MD [address] [place] [address] [id number] 06/18/2024 Brody Goldberg MD [address] [place] [address] [id number] 09/14/2024 Brody Goldberg MD [address] [place] [address] [id number] 02/25/2024 Brody Goldberg MD [address] [place], [place] [id number] 06/05/2024 Brody Goldberg Assessments Encounter Date Diagnosis (ICD Code) Assessment Notes Treatment Notes Treatment Clinical Notes Section Notes 12/03/2023 Paroxysmal atrial fibrillation (ICD-10 - I48.0) 12/03/2023 Encounter for immunization (ICD-10 - Z23) 12/17/2023 Paroxysmal atrial fibrillation (ICD-10 - I48.0) 12/17/2023 Encounter for current long-term use of anticoagulants (ICD-10 - Z79.01) 01/21/2024 Paroxysmal atrial fibrillation (ICD-10 - I48.0) 01/21/2024 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 (ICD-10 - Z79.01) 02/04/2024 Paroxysmal atrial fibrillation (ICD-10 - I48.0) 02/04/2024 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 (ICD-10 - Z79.01) 02/25/2024 Paroxysmal atrial fibrillation (ICD-10 - I48.0) 02/25/2024 custodial current use of anticoagulant (ICD-10 - Z79.01) 03/12/2024 Paroxysmal atrial fibrillation (ICD-10 - I48.0) 03/12/2024 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 (ICD-10 - Z79.01) 03/24/2024 Paroxysmal atrial fibrillation (ICD-10 - I48.0) 03/24/2024 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 therapy (ICD-10 - [...] I48.0) 09/22/2024 Mixed hyperlipidemia (ICD-10 - E78.2) 10/08/2024 Paroxysmal atrial fibrillation (ICD-10 - I48.0) 10/20/2024 Paroxysmal atrial fibrillation (ICD-10 - I48.0) 11/03/2024 Encounter for current long-term use of anticoagulants (ICD-10 - Z79.01) 11/17/2024 Paroxysmal atrial fibrillation (ICD-10 - I48.0) 11/17/2024 Encounter for administration of vaccine (ICD-10 - Z23) 12/01/2024 Paroxysmal atrial fibrillation (ICD-10 - I48.0) 12/31/2023 Paroxysmal atrial fibrillation (ICD-10 - I48.0) [...] E11.40) a1c stable, will continue current regiment 10/08/2024 Meningioma (ICD-10 - D32.9) had been followed by dr hernandez for years and kristina says there was eventually no need for follow up/ need last note from dr hernandez neurosurgery at [facility] 10/08/2024 Paroxysmal atrial fibrillation (ICD-10 - I48.0) seems well controlled, will contnue current regiment 03/24/2024 Pressure sore (ICD-10 - L89.90) 12/03/2023 Encounter for current long-term use of [...] mellitus with diabetic neuropathy (ICD-10 - E11.40) 10/08/2024 Encounter for current long-term use of anticoagulants (ICD-10 - Z79.01) 10/20/2024 Encounter for current long-term use of anticoagulants (ICD-10 - Z79.01) 11/03/2024 Paroxysmal atrial fibrillation (ICD-10 - I48.0) 11/17/2024 custodial current use of anticoagulant therapy (ICD-10 - Z79.01) 12/01/2024 Encounter for current long-term use of anticoagulants (ICD-10 - Z79.01) 04/09/2024 Pressure injury of sacral region, unstageable (ICD-10 - L89.150) 10/08/2024 Type 2 diabetes mellitus with diabetic neuropathy (ICD-10 - E11.40) doing well, will continue current regiment 09/22/2024 Thrombocytopenia (ICD-10 - D69.6) 04/09/2024 Mixed hyperlipidemia (ICD-10 - E78.2) stable, will continue current regiment 10/08/2024 PVC (premature ventricular contraction) (ICD-10 - I49.3) had monitor recently. have him call butcher or smallgoods maker to get results 09/22/2024 Acute systolic congestive heart failure (ICD-10 - I50.21) 10/08/2024 Essential hypertension (ICD-10 - I10) stable, will continue currenr regiment 10/08/2024 Mixed hyperlipidemia (ICD-10 - E78.2) doing well, will contonue current regiment 10/08/2024 Acute systolic congestive heart failure (ICD-10 - I50.21) stable, will continue current regiment Plan Of Treatment Pending Test Test Name Order Date CT SINUS W&WO CONTRAST 12/08/2012 Next Appt Details Provider Name:Brody velarde, 04/09/2025 08:15:00 AM, [address] [facility] [address], [place], [phone], Provider Name:Brody Parikh ier, 04/16/2025 09:00:00 AM, [address] [facility], [address], [place], [phone], Provider Name:Brody Parikh ier, 10/04/2025 08:00:00 AM, [address] [place] [address], [address], [place], [place], [phone], Provider Name:Brody Parikh ier, 10/11/2025 08:30:00 AM, [address] [place] [address], Suite [facility], [place], [phone], Insurance Providers Payer Name Payer Address Payer Phone Subscriber Number Group Number Insured Name Patient Relationship to Insured Coverage Start Date Coverage End Date MEDICARE NH[address] [place] [address] [id number] Kristina Rodriguez Self - patient is the insured 3 MEDEX BCBS OF [facility] [address] [place] [address] [id number] Kristina Rodriguez Self - patient is the insured [...]
== END 2024-12-01 10:36 | disposition home or self-care (01) ==
LOC: HO.LNP 10:35
PROVIDERS: Visit Provider Internal Medicine
DX: I48.0 Paroxysmal atrial fibrillation (principal); Z79.01 Long term (current) use of anticoagulants
CPT/HCPCS: 85610

== ENCOUNTER 2024-12-17 10:25 | Outpatient (REF) | payer MEDICARE, SELFPAY ==
--- OUTSIDE RECORDS SUMMARY | 2020-07-28 11:05 | XMS_ITS | Encounter Summary ---
Author Organization [facility] Address [address] [place] [address] [place] [address] Phone Care Team Providers Care Wrist Closer Name Role Phone Brody Goldberg MD Primary Care Provider Encounter Details Date Type Department Care Team (Late st Contact Info) Description 07/28/2020 11:05 AM EDT Hospital Encounter [facility] [address] [place] [phone] Luis Manuel Cabello PA [address] [place] [phone] [email or web address] g Social History Tobacco Use Types Packs/Day [...] on filedocumented in this encounter Care Teams Wrist Closer Relationship Specialty Start Date End Date Brody Goldberg MD [address] [place] [address] [place] [address] PCP - General Internal Medicine 07/28/20 documented as of this encounter Additional Source Comments The information contained in this document represents components of the legal health record. It is not the complete legal health record.[facility]
--- OUTSIDE RECORDS SUMMARY | 2024-11-03 05:00 | XMS_ITS ---
Author Organization Brody Goldberg MD Address [address] [place] [phone] Care Team Providers Care Document Management Analyst Name Role Phone Brody Goldberg Primary Care Provider Results Component Value Reference Range Notes Prothrombin Time INR Reviewed date:11/03/2024 12:50:48 PM Interpretation: Performing Lab:[facility], [address] [place] [phone] Notes/Report: Prothrombin Time 31.6 10.9-12.4 SEC INTERNATIONAL NORM RATIO 2.8 0.9-1.1 [...] Brody Goldberg MD [address] [place] [phone] 11/03/2024 Brody Goldberg Encounter for curren t long-term use of anticoagulants Z79.01 and Paroxysmal atrial fibrillation I48.0 Assessments Encounter Date Diagnosis (ICD Code) Assessment Notes Treatment Notes Treatment Clinical Notes Section Notes 11/03/2024 Encounter for current long-term use of anticoagulants (ICD-10 - Z79.01) 11/03/2024 Paroxysmal atrial fibrillation (ICD-10 - I48.0) Plan Of Treatment Next Appt Details Provider Name:Brody Parikh syd, 04/09/2025 08:15:00 AM, [address] [place] [address], [address], [phone], Provider Name:Brody Parikh syd, 04/16/2025 09:00:00 AM, [address] [place] [address], [place] [address], [place], [place], [phone], Provider Name:Brody Parikh syd, 10/04/2025 08:00:00 AM, [address] [place] [address], [address], [phone], Provider Name:Brody Parikh syd, 10/11/2025 08:30:00 AM, [address] [place] [address], [address], [phone], Progress Notes * JENNIFER Jayy LDOB:1945 ([age] yo M)Acc No.[id number]:11/03/2024 Progress Note Patient: Jayy ANDRADE Provider: Breezy Goldberg MD :1945 A ge:79 Y S ex:Male Date:11/03/2024 Address:[address] [place] [address] Subjective: * Chief Complaints: * 1 . INR. * Medical History: Objective: * Vitals: Assessment: * Assessment: 1. E ncounter for current long-term use of anticoagulants - Z79.01 (Primary) 2 . P aroxysmal atrial fibrillation - I48.0 Plan: * Treatment: 2. P aroxysmal atrial fibrillation L AB: Prothrombin Time INR (Collection Date & Time - 11/03/2024 09:00 AM) * Procedure Codes: 3 6415 VENIPUNCT, ROUTINE* * * The named appointment provid er may or may not be the originator of this progress note, and it is not deemed complete until electronically signed by the appointment provider. Sign off status: Pending * Provider: Breezy Goldberg MD Date: 0 11/03/2024 Generated for Doron granados/Quang/Pauline on: 12:01 PM EDT
--- OUTSIDE RECORDS SUMMARY | 2024-11-17 05:45 | XMS_ITS ---
Author Organization Brody Goldberg MD Address [address] [place] [phone] Care Team Providers Care Director Of Early Childhood Name Role Phone Brody Goldberg Primary Care Provider [phone] Results Component Value Reference Range Notes Prothrombin Time INR Reviewed date:11/17/2024 12:36:36 PM Interpretation: Performing Lab:[facility], [address] [place] [phone] Notes/Report: Prothrombin Time 30.7 10.9-12.4 SEC INTERNATIONAL [...] Brody Goldberg MD [address] [place] [phone] 11/17/2024 Brody Goldberg Paroxysmal atrial fibrillation I48.0 ; Encounter for administration of vaccine Z23 and skilled nursing current use of anticoagulant therapy Z79.01 Assessments Encounter Date Diagnosis (ICD Code) Assessment Notes Treatment Notes Treatment Clinical Notes Section Notes 11/17/2024 Paroxysmal atrial fibrillation (ICD-10 - I48.0) 11/17/2024 Encounter for administration of vaccine (ICD-10 - Z23) 11/17/2024 skilled nursing current use of anticoagulant therapy (ICD-10 - Z79.01) Plan Of Treatment Next Appt Details Provider Name:Brody reyesr, 04/09/2025 08:15:00 AM, [address] [place] [address], [address] [place] [address], [phone], Provider Name:Brody reyesr, 04/16/2025 09:00:00 AM, [address] [place] [address], [address], [phone], Provider Name:Brody reyesr, 10/04/2025 08:00:00 AM, [address] [place] [address], [address], [phone], Provider Name:Brody Samir Kati reyesr, 10/11/2025 08:30:00 AM, [address] [place] [address], [address], [phone], Progress Notes * Jayy RODRIGUEZ LDOB:1945 ([age] yo M)Acc No.[id number]:11/17/2024 Progress Note Patient: Jayy ANDRADE Provider: Breezy Goldberg MD :1945 A ge:79 Y S ex:Male Date:11/17/2024 Address:[address] [place], [place] [phone] Subjective: * Chief Complaints: * 1 . [...] * Procedure Codes: 3 6415 VENIPUNCT, ROUTINE*, 20915 FLU VACC PRSV FREE INC ANTIG, 30104 VENIPUNCT, ROUTINE*, G0008 ADMN FLU VAC NO FEE SCHED SAME DAY * * The named appointment provid er may or may not be the originator of this progress note, and it is not deemed complete until electronically signed by the appointment provider. Sign off status: Pending * Provider: Breezy Goldberg MD Date: 0 11/17/2024 Generated for Doron granados/Quang/Kyitting on: 12:01 PM EDT
--- OUTSIDE RECORDS SUMMARY | 2024-12-01 04:45 | XMS_ITS ---
Author Organization Brody Goldberg MD Address [address] [place] [phone] Care Team Providers Care Visual Journalist Name Role Phone Brody Goldberg Primary Care Provider Results Component Value Reference Range Notes Prothrombin Time INR Reviewed date:12/01/2024 12:22:34 PM Interpretation: Performing Lab:[facility], [address] [place] [phone] Notes/Report: Prothrombin Time 38.8 10.9-12.4 SEC INTERNATIONAL [...] Goldberg MD [address] [place] [phone] 12/01/2024 Brody Goldberg Paroxysmal atrial fibrillation I48.0 and Encounter for current long-term use of anticoagulants Z79.01 Assessments Encounter Date Diagnosis (ICD Code) Assessment Notes Treatment Notes Treatment Clinical Notes Section Notes 12/01/2024 Paroxysmal atrial fibrillation (ICD-10 - I48.0) 12/01/2024 Encounter for current long-term use of anticoagulants (ICD-10 - Z79.01) Plan Of Treatment Next Appt Details Provider Name:Brody Parikh syd, 04/09/2025 08:15:00 AM, [address] [place] [address], [address] [place] [address], [phone], Provider Name:Brody Parikh syd, 04/16/2025 09:00:00 AM, [address] [place] [address], [place] [address], [place], [place], [phone], Provider Name:Brody Parikh syd, 10/04/2025 08:00:00 AM, [address] [place] [address], [address], [phone], Provider Name:Brody Parikh syd, 10/11/2025 08:30:00 AM, [address] [place] [address], [address], [phone], Progress Notes * JENNIFER, Jayy LDOB:1945 ([age] yo M)Acc No.[id number]:12/01/2024 Progress Note Patient: Jayy ANDRADE Provider: Breezy Goldberg MD :1945 A ge:79 Y S ex:Male Date:12/01/2024 Address:[address] [place], [place] [phone] Subjective: * Chief Complaints: * 1 . [...] 0 12/01/2024 Generated for Doron granados/Quang/Pauline on: 12:01 PM EDT
--- OUTSIDE RECORDS SUMMARY | 2024-12-15 03:03 | XMS_ITS ---
Author Organization Brody Goldberg MD Address 10 [facility] [address] [place] [address] [phone] Care Team Providers Care Doll Wig Maker Name Role Phone Brody Goldberg Primary Care Provider [phone] REASON FOR VISIT Yovanny Rodriguez PT-INR Encounters Encounter Location Date Provider Diagnosis Brody Goldberg MD [address] [place] [address] [place] [address] [phone] 12/15/2024 Brody Goldberg Plan Of Treatment Next Appt Details Provider Name:Brody velarde, 04/09/2025 08:15:00 AM, [address] [place] [address], [address], [phone], Provider Name:Brody velarde, 04/16/2025 09:00:00 AM, [address] [place] [address], [address], [phone], Provider Name:Brody velarde, 10/04/2025 08:00:00 AM, [address] [place] [address], [address], [phone], Provider Name:Brody velarde, 10/11/2025 08:30:00 AM, [address] [place] [address], [address], [phone], Progress Notes * Jayy RODRIGUEZ LDOB:1945 ([age] yo M)Acc No.[id number]:12/15/2024 Patient: Jayy ANDRADE :1945 A ge:79 Y S ex:Male Address:[address] [place] [address] * true * Date: Generated for Doron granados/Quang/Yismitting on: 12:01 PM EDT
--- OUTSIDE RECORDS SUMMARY | 2024-12-17 05:15 | XMS_ITS ---
Author Organization Brody Goldberg MD Address [address] [place] [phone] Care Team Providers Care Duty Manager Name Role Phone Brody Goldberg Primary Care Provider Results Component Value Reference Range Notes Prothrombin Time INR (Not ye t reviewed by provider) Interpretation: Performing Lab:[facility], [address] [place] [phone] Notes/Report: Prothrombin Time 31.6 10.9-12.4 SEC INTERNATIONAL [...] Goldberg MD [address] [place] [phone] 12/17/2024 Brody Goldberg Paroxysmal atrial fibrillation I48.0 and Encounter for current long-term use of anticoagulants Z79.01 Assessments Encounter Date Diagnosis (ICD Code) Assessment Notes Treatment Notes Treatment Clinical Notes Section Notes 12/17/2024 Paroxysmal atrial fibrillation (ICD-10 - I48.0) 12/17/2024 Encounter for current long-term use of anticoagulants (ICD-10 - Z79.01) Plan Of Treatment Pending Test Test Name Order Date Prothrombin Time INR 12/17/2024 Next Appt Details Provider Name:Brody Parikh ericr, 04/09/2025 08:15:00 AM, [address] [place] [address], Suite [facility], [place], [place], [phone], Provider Name:Brody Parikh ier, 04/16/2025 09:00:00 AM, [address] [place] [address], Suite [facility], [place], [place], [phone], Provider Name:Brody Parikh ericr, 10/04/2025 08:00:00 AM, [address] [place] [address], Suite [facility], [place], [place], [phone], Provider Name:Brody Parikh ericr, 10/11/2025 08:30:00 AM, [address] [place] [address], Suite [facility], [place], [place], [phone], Progress Notes * Jayy RODRIGUEZ LDOB:1945 ([age] yo M)Acc No.[id number]:12/17/2024 Progress Note Patient: Jayy ANDRADE Provider: Breezy Goldberg MD :1945 A ge:79 Y S ex:Male Date:12/17/2024 Address:[address] [place], [place] [phone] Subjective: * Chief Complaints: * 1 . [...] Pending * Provider: Breezy Goldberg MD Date: Generated for Doron granados/Quang/Pauline on: 12:00 PM EDT
[2024-12-17 11:04] LABS: INTERNATIONAL NORM RATIO 2.8 (0.9-1.1); Prothrombin Time 31.6 SEC (10.9-12.4)
--- OUTSIDE RECORDS SUMMARY | 2024-12-17 12:01 | XMS_ITS | Patient Health Record ---
Author Organization [facility] Address [address] [place] [address] Care Team Providers Care Potato Picker Name Role Phone Brody Goldberg MD Primary Care Provider Armando Hunt Unavailable [phone] Reason For Referral No Information Medications Medication [...] Status W/U Status Risk Notes Problem Diarrhea (04654062) Diarrhea (787.91) Active confirmed Problem Change in bowel habit (98260575) Change in bowel habits (787.99) Active confirmed Problem History of adenomatous polyp of colon (372342566) History of adenomatous polyp of colon (V12.72) Active confirmed Problem Weight loss (076889811) Weight loss (783.21) Active confirmed Plan Of Treatment Future Test Test Name Order Date COLONOSCOPY 09/03/2013 Insurance Providers Payer Name Payer Address Payer Phone Subscriber Number Group Number Insured Name Patient Relationship to Insured Coverage Start Date Coverage End Date MEDICARE OF [place] [address] [place] [address] [id number] KEYSHA RODRIGUEZ Self - patient is the insured [facility] [address] [place] [address] [id number] KEYSHA RODRIGUEZ Self - patient is the insured Medical (General) History Medical History History ICD Code NIDDM hypertension Denies [place],CVA,Lung disease,renal disease Atrial fib Anxiety On Finasteride [...]
--- OUTSIDE RECORDS SUMMARY | 2024-12-17 12:01 | XMS_ITS | Clinical Summary ---
Author Organization [facility] Address [address] [address] Phone Care Team Providers Care Fraud Examiner Name Role Phone Brody Goldberg MD Primary [...] file Insurance MEDICARE PART A & B [facility] MEDICARE SUPPLEMENT MEDICARE PART A & B MEDICARE SUPPLEMENT MEDICARE PART A & B MEDICARE SUPPLEMENT MEDICARE PART A & B [facility] MEDICARE SUPPLEMENT MEDICARE PART A & B [facility] MEDICARE SUPPLEMENT MEDICARE PART A & B MEDICARE SUPPLEMENT MEDICARE PART A & B Member Subscriber Plan / Payer (Ef fective 2012-Present) Name:Jayy Hawk Member ID:[id number] Relation to Subscriber:Self Name:KennJayy Subscriber ID:[id number] Payer ID:[id number] Group ID:Not on file Type:Medicare Address: [employer] [address] MEDICARE SUPPLEMENT MEDICARE PART A & B MEDICARE SUPPLEMENT MEDICARE PART A & B MEDICARE SUPPLE[place] [phone] Care Teams Fraud Examiner Relationship Specialty Start Date End Date Brody Goldberg MD [address] [place] [address] [place] [address] PCP - General Internal Medicine 07/28/20 Additional Source Comments The information contained in this document represents components of the legal health record. It is not the complete legal health record.[facility]
--- OUTSIDE RECORDS SUMMARY | 2024-12-17 12:02 | XMS_ITS | Patient Health Record ---
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 Role Phone Brody Goldberg Primary Care Provider Allergies Allergen (clinical drug ingredient) Drug/Non Drug Allergy documented on EMR Reaction Allergy Type Onset Date Status metformin Metformin HCl diarrhea Drug Allergy Act enzo lisinopril Lisinopril couigh Drug Allergy Activ e Results Component Value Reference Range Notes Prothrombin Time INR Reviewed date:01/21/2024 12:49:48 PM Interpretation: Performing Lab:[address] [phone] Notes/Report: Prothrombin Time 31.9 10.9-12.4 [employer] [...] INR Reviewed date:02/17/2024 08:32:12 AM Interpretation: Performing Lab:[address] [address] Notes/Report: Prothrombin Time 20.5 10.9-12.4 SEC [employer]NATIONAL [...] INR Reviewed date:02/25/2024 12:31:15 PM Interpretation: Performing Lab:[address] [address] Notes/Report: Prothrombin Time 26.0 10.9-12.4 SEC INTERNATIONAL [...] INR Reviewed date:03/12/2024 12:34:57 PM Interpretation: Performing Lab:[facility], [address] [place] [phone] Notes/Report: Prothrombin Time 32.7 10.9-12.4 SEC INTERNATIONAL [...] INR Reviewed date:03/24/2024 12:22:39 PM Interpretation: Performing Lab:[facility], [address] [place] [phone] Notes/Report: Prothrombin Time 25.6 10.9-12.4 [employer] [...] Panel Reviewed date:04/02/2024 05:16:30 PM Interpretation: Performing Lab:[address] [phone] Notes/Report: Bilirubin Total 0.5 0.0-1.0 mg/dL Bilirubin Direct 0.2 0.0-0.5 mg/dL Aspartate Amino Transferase 24 5-37 U/L Alanine Aminotransferase 18 0-40 U/L Total Protein 7.3 6.5-8.0 g/dL Albumin Level 4.1 3.5-5.0 g/dL Alkaline Phosphatase 65 39-117 U/L Glucose Fasting Reviewed date:04/02/2024 05:15:41 PM Interpretation: Performing Lab:[address] [address] Notes/Report: Glucose Fasting 153 60-99 mg/dL A fasting glucose of 126 mg/dl or greater on more than one occasion is considered diagnostic of diabetes. Lipid Panel with Reflex Reviewed date:04/02/2024 05:16:03 PM Interpretation: Performing Lab:[address] [address] Notes/Report: Triglycerides 196 <150 mg/dL Desirable Triglyceride: [...] A1c Reviewed date:04/02/2024 05:16:13 PM Interpretation: Performing Lab:[address] [address] Notes/Report: Hemoglobin A1c % 7.1 <6.0 % [...] average glucose, using the formula of the L2I-Vxnatpe Average Glucose study (ADAG), Diabetes Care, Vol.31,#8, Oct. 2007 Prothrombin Time INR Reviewed date:04/09/2024 12:14:10 PM Interpretation: Performing Lab:[address] [address] Notes/Report: Prothrombin Time 31.7 10.9-12.4 SEC [employer] [...] INR Reviewed date:06/30/2024 11:32:00 AM Interpretation: Performing Lab:[facility], [address] [place] [phone] Notes/Report: Prothrombin Time 35.1 10.9-12.4 SEC INTERNATIONAL [...] INR Reviewed date:07/14/2024 12:30:07 PM Interpretation: Performing Lab:[facility], [address] [place] [phone] Notes/Report: Prothrombin Time 25.2 10.9-12.4 SEC INTERNATIONAL [...] INR Reviewed date:07/28/2024 11:29:24 AM Interpretation: Performing Lab:[facility], [address] [place] [phone] Notes/Report: Prothrombin Time 27.8 10.9-12.4 SEC INTERNATIONAL [...] INR Reviewed date:08/14/2024 07:43:22 AM Interpretation: Performing Lab:[facility], [address] [place] [phone] Notes/Report: Prothrombin Time 21.6 10.9-12.4 SEC INTERNATIONAL [...] INR Reviewed date:08/25/2024 11:30:24 AM Interpretation: Performing Lab:[address] [address] Notes/Report: Prothrombin Time 25.1 10.9-12.4 SEC INTERNATIONAL [...] INR Reviewed date:09/08/2024 10:54:20 AM Interpretation: Performing Lab:[address] [address] Notes/Report: Prothrombin Time 24.8 10.9-12.4 SEC [employer]NATIONAL [...] ff Reviewed date:09/22/2024 12:24:19 PM Interpretation: Performing Lab:[address] [address] Notes/Report: White Blood Count 8.7 4.8-10.8 X10*3/uL [...] C ORRECTED REPORT C ORRECTED REPORT Comprehensive Jenkinjones. Panel Fa st Reviewed date:09/22/2024 12:50:27 PM Interpretation: Performing Lab:[facility], [address] [place] [phone] Notes/Report: Sodium 141 135-145 mmol/L Potassium 4.1 [...] Panel Reviewed date:09/22/2024 12:24:29 PM Interpretation: Performing Lab:[facility], [address] [place] [phone] Notes/Report: Triglycerides 171 <150 mg/dL Desirable Triglyceride: [...] (Free>4and<10) Reviewed date:09/22/2024 12:23:28 PM Interpretation: Performing Lab:[facility], [address] [place] [phone] Notes/Report: PSA,Total (Free>4and<10) 1.22 0.00-4.00 ng/mL A [...] Random Reviewed date:09/22/2024 12:32:32 PM Interpretation: Performing Lab:[facility], [address] [place] [phone] Notes/Report: Creatinine Urine 102.44 Microalbumin Urine 27.0 Microalbum/Creatinine Ratio Ur 26.3 <30 ug/mg cr Albumin/Creatinine Ratio Reference Ranges: Normal: < 30 ug/mg creatinine Microalbuminuria: 30 - 300 ug/mg creatinine Clinical Albuminuria: > 300 ug/mg creatinine Hemoglobin A1c Reviewed date:09/22/2024 12:32:41 PM Interpretation: Performing Lab:[address] [address] Notes/Report: Hemoglobin A1c % 7.0 <6.0 % [...] average glucose, using the formula of the Q1G-Oagxliw Average Glucose study (ADAG), Diabetes Care, Vol.31,#8, Oct. 2007 UA ClnCatch+Micro w/rflx Cul t Reviewed date:09/22/2024 12:46:13 PM Interpretation: Performing Lab:[facility], [address] [place] [phone] Notes/Report: Urine, Clean Catch Color Urine Yellow Appearance Urine Turbid PH 5.5 5.0-9.0 Glucose Urine UA Negative Negative mg/dL Urine Blood Negative Negative Specific [place] - Urine 1.015 1.005-1.025 Urine Protein Negative Neg-Trace mg/dL Urine Ketones Negative Negative mg/dL Nitrite Urine Negative Negative Leukocyte Esterase Urine Negative Negative RBC Urine 0-2 0-2 /HPF WBC Urine 0-5 0-5 /HPF Squamous Epithelial Cell Urine 0-2 0-2 /HPF Bacteria Urine None Seen None Seen Hyaline Casts Urine 0-2 0-2 /LPF Prothrombin Time INR Reviewed date:10/08/2024 05:01:25 PM Interpretation: Performing Lab:[facility], [address] [place] [phone] Notes/Report: Prothrombin Time 28.8 10.9-12.4 SEC INTERNATIONAL [...] INR Reviewed date:10/20/2024 12:40:33 PM Interpretation: Performing Lab:[facility], [address] [place] [phone] Notes/Report: Prothrombin Time 32.9 10.9-12.4 SEC INTERNATIONAL [...] INR Reviewed date:11/03/2024 12:50:48 PM Interpretation: Performing Lab:[facility], [address] [place] [phone] Notes/Report: Prothrombin Time 31.6 10.9-12.4 SEC INTERNATIONAL [...] INR Reviewed date:11/17/2024 12:36:36 PM Interpretation: Performing Lab:[address] [phone] Notes/Report: Prothrombin Time 30.7 10.9-12.4 SEC [employer]NATIONAL [...] INR Reviewed date:12/01/2024 12:22:34 PM Interpretation: Performing Lab:[address] [address] Notes/Report: Prothrombin Time 38.8 10.9-12.4 SEC INTERNATIONAL [...] valves: 2.5 - 3.5 Prothrombin Time INR (Not ye t reviewed by provider) Interpretation: Performing Lab:[address] [address] Notes/Report: Prothrombin Time 31.6 10.9-12.4 SEC INTERNATIONAL [...] INR Reviewed date:01/02/2024 08:22:51 AM Interpretation: Performing Lab:[address] [address] Notes/Report: Prothrombin Time 42.1 10.9-12.4 SEC INTERNATIONAL [...] INR Reviewed date:01/07/2024 01:11:11 PM Interpretation: Performing Lab:[facility], [address] [place] [phone] Notes/Report: Prothrombin Time 31.0 10.9-12.4 SEC INTERNATIONAL [...] Blood Reviewed date:01/05/2024 05:02:16 PM Interpretation: Performing Lab:[facility], [address] [place] [phone] Notes/Report: Glucose, Whole Blood 190 60-115 mg/dL METER #: [id number] Testing performed in the [facility] [facility]. Lipid Panel Reviewed date:03/17/2024 04:35:59 PM Interpretation: Performing Lab:[address] [phone] Notes/Report: Triglycerides 207 <150 mg/dL Desirable Triglyceride: [...] A1c Reviewed date:03/15/2024 04:56:43 PM Interpretation: Performing Lab:[facility], [address] [place] [phone] Notes/Report: Hemoglobin A1c % 7.2 <6.0 % [...] average glucose, using the formula of the E6J-Mlnfufc Average Glucose study (ADAG), Diabetes Care, Vol.31,#8, 2007 Glucose, Whole Blood Reviewed date:03/17/2024 04:28:32 PM Interpretation: Performing Lab:[facility], [address] [place] [phone] Notes/Report: Glucose, Whole Blood 170 60-115 mg/dL METER #: [id number] Testing performed in the [facility], [facility]. Nayely Ramesh Reviewed date:04/02/2024 05:17:01 PM Interpretation: Performing Lab:[facility], [address] [place] [phone] Notes/Report: Nayely Ramesh See Note Specimen held untested for 24 hours; Call to request Chemistry testing. Glucose, Whole Blood Reviewed date:08/11/2024 11:12:03 AM Interpretation: Performing Lab:[facility], [address] [place] [phone] Notes/Report: Glucose, Whole Blood 134 60-115 mg/dL METER #: [id number] Testing performed in the [facility], [facility]. Complete Blood Count Auto Di ff Reviewed date:09/15/2024 04:47:15 PM Interpretation: Performing Lab:[facility], [address] [place] [phone] Notes/Report: White Blood Count 10.6 4.8-10.8 X10*3/uL [...] INR Reviewed date:09/15/2024 12:34:11 PM Interpretation: Performing Lab:[facility], [address] [place] [phone] Notes/Report: Prothrombin Time 22.1 10.9-12.4 SEC INTERNATIONAL [...] Panel Reviewed date:09/15/2024 12:40:51 PM Interpretation: Performing Lab:[facility], [address] [place] [phone] Notes/Report: Sodium 141 135-145 mmol/L Potassium 4.5 [...] date:09/14/2024 01:32:53 PM Interpretation: Performing Lab: Notes/Report: [address] 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: [place] [id number] [address] Scan Report Signed Patient: Kristina Rodriguez MR#: [id number] : 1945 Acct:[id number] Age/Sex: 78 / M ADM Date: 09/13/24 Loc: HO.ED Attending Dr: Ordering Physician: Liz Levin Date of Service: 09/13/24 Procedure(s): CT cervical spine wo IV con Accession Number(s): [id number] cc: Brody Goldberg MD; Liz Levin Report Number: [id number]: Total DLP = 503.00 mGy-cm CLINICAL HISTORY: [...] in OV> 09/13/241813 DD/ 12 TD/TT: 09/13/241812 Masking Machine Operator: CT head/brain wo con Reviewed date:10/08/2024 01:13:57 PM Interpretation:10-08-2024 Performing Lab: Notes/Report: [place] [address] [address] Scan Report Signed Patient: Kristina Rodriguez MR#: [id number] : 1945 Acct:[id number] Age/Sex: 78 / M ADM Date: 09/13/24 Loc: HO.ED Attending Dr: Ordering Physician: Liz Levin Date of Service: 09/13/24 Procedure(s): CT head/brain wo IV con Accession Number(s): [id number] cc: Brody Goldberg MD; Liz Levin Report Number: [id number]: Total DLP = 840.00 mGy-cm CLINICAL HISTORY: [...] in OV> 09/13/241807 DD/ 06 TD/TT: 09/13/241806 Masking Machine Operator: [place] [address] CT Scan Report Signed Patient: Kristina Rodriguez MR#: [id number] : 1945 Acct:[id number] Age/Sex: 78 / M ADM Date: 09/13/24 Loc: HO.ED Attending Dr: Ordering Physician: Liz Levin Date of Service: 09/13/24 Procedure(s): CT head/brain wo IV con Accession Number(s): [id number] cc: Brody Goldberg MD; Liz Levin Report Number: [id number]: Total DLP = 840.00 mGy-cm CLINICAL HISTORY: [...] in OV> 09/13/241807 DD/ 06 TD/TT: 09/13/241806 Masking Machine Operator: SLIDE REVIEW Reviewed date:09/22/2024 12:30:18 PM Interpretation: Performing Lab:[facility], [address] [place] [phone] Notes/Report: SLIDE REVIEW VERIFIED Reason For Referral [...] Active Diprolene AF 0.05 % 1 application Decaler ally Once a day for 30 days [...] day(s) Not-Taking Mupirocin 2 % 1 application Decaler ally Twice a day for 5 day(s) 03/28/2021 Active Ativan 0.5 MG 1 tablet at bedtime as needed Orally Once a day for 30 days 06/21/2011 Not-Taking PARoxetine HCl 20 MG TAKE 1 TABLET BY [facility] EVERY MORNING for 90 Active Jardiance 25 [...] Risk Notes Problem Ventricular premature complex (disorder) (705200277) PVC (premature ventricular contraction) (I49.3) Active confirmed Problem 741823214 Thrombocytopenia (D69.6) Active confirmed Problem 237092986 Tubular adenoma (D36.9) Active confirmed Problem 02931841 Nevus (D22.9) Active confirmed Problem Mixed hyperlipidemia (252528890) Mixed hyperlipidemia (E78.2) Active confirmed Problem Paroxysmal atrial fibrillation (704235575) Paroxysmal atrial fibrillation (I48.0) Active confirmed Problem 7741010 Primary insomnia (F51.01) Active confirmed Problem 17754901 Lumbar disc disease (M51.9) Active confirmed Problem 14225242 Essential hypertension (I10) Active confirmed Problem Long-term current use of anticoagulant (547387264) 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) Active confirmed Problem Long-term current use of anticoagulant (996586147) shelter current use of anticoagulant therapy (Z79.01) Active confirmed Problem 06349928 Type 2 diabetes mellitus with 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) Active confirmed Problem 604031369 Acute systolic congestive heart failure (I50.21) Active confirmed Problem Pressure injury (morphologic abnormality) (5343459332) Pressure sore (L89.90) Active confirmed Problem Long-term current use of anticoagulant (138323733) Encounter for current long-term use of anticoagulants (Z79.01) Active confirmed Problem 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) Abnormal platelets (D69.1) Active confirmed Problem 445210144 Temporary low platelet count (D69.6) Active confirmed Problem Benign neoplasm of cerebral meninges (32375487) Meningioma (D32.9) Active confirmed Problem 054570913 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 Problem 79672362 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) Active confirmed Problem 68452413645228585 Pressure injur y of sacral region, unstageable (L89.150) Active confirmed Vital Signs Blood pressure diastolic 62 mm Hg 10/08/2024 Height 73.5 in 10/08/2024 Blood pressure systolic 112 mm Hg 10/08/2024 Weight 256 lbs 10/08/2024 BMI 33.31 kg/m2 10/08/2024 Encounters Encounter Location Date Provider Diagnosis Brody Goldberg MD [address] [place] [id number] 01/21/2024 Brody Bombardier Paroxysmal atrial fibrillation I48.0 and 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 Z79.01 Brody Goldberg MD [address] [place] [address] [id number] 02/04/2024 Brody Bombardier Paroxysmal atrial fibrillation I48.0 and shelter current use of anticoagulant Z79.01 Brody Goldberg MD [address] [place] [address] [id number] 02/25/2024 Brody Bombardier Paroxysmal atrial fibrillation I48.0 and 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 Z79.01 Brody Goldberg MD [address] [place] [address] [id number] 03/12/2024 Brody Bombardier Paroxysmal atrial fibrillation I48.0 and shelter current use of anticoagulant Z79.01 Brody Goldberg MD [address] [place] [address] [id number] 03/24/2024 Brody Bombardier Paroxysmal atrial fibrillation I48.0 and shelter current use of anticoagulant therapy Z79.01 Brody Goldberg MD [address] [place] [address] [id number] 04/02/2024 Brody Bombardier Mixed hyperlipidemia E78.2 and 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 Brody Goldberg MD [address] [place] [address] [id number] 04/09/2024 Brody Bombardier Paroxysmal atrial fibrillation I48.0 and Encounter for current long-term use of anticoagulants Z79.01 Brody Goldberg MD [address] [place] [address] [id number] 06/30/2024 Brody Bombardier Paroxysmal atrial fibrillation I48.0 and Encounter for current long-term use of anticoagulants Z79.01 Brody Goldberg MD [address] [place] [address] [id number] 07/14/2024 Brody Bombardier Paroxysmal atrial fibrillation I48.0 and Encounter for current long-term use of anticoagulants Z79.01 Brody Goldberg MD [address] [place] [address] [id number] 07/28/2024 Brody Bombardier Paroxysmal atrial fibrillation I48.0 and Encounter for current long-term use of anticoagulants Z79.01 Brody Goldberg MD [address] [place] [address] [id number] 08/11/2024 Brody Bombardier Paroxysmal atrial fibrillation I48.0 and Encounter for current long-term use of anticoagulants Z79.01 Brody Goldberg MD [address] [place] [address] [id number] 08/25/2024 Brody Bombardier Paroxysmal atrial fibrillation I48.0 and Encounter for current long-term use of anticoagulants Z79.01 Brody Goldberg MD [address] [place] [address] [id number] 09/08/2024 Brody Bombardier Paroxysmal atrial fibrillation I48.0 and Encounter for current long-term use of anticoagulants Z79.01 Brody Goldberg MD [address] [place] [address] [id number] 09/22/2024 Brody Bombardier Mixed hyperlipidemia E78.2 ; 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 ; Thrombocytopenia D69.6 and Acute systolic congestive heart failure I50.21 Brody Goldberg MD [address] [place] [address] [id number] 10/08/2024 Brody Bombardier Paroxysmal atrial fibrillation I48.0 and Encounter for current long-term use of anticoagulants Z79.01 Brody Goldberg MD [address] [place] [address] [id number] 10/20/2024 Brody Bombardier Paroxysmal atrial fibrillation I48.0 and Encounter for current long-term use of anticoagulants Z79.01 Brody Goldberg MD [address] [place] [address] [id number] 11/03/2024 Brody Goldberg Encounter for curren t long-term use of anticoagulants Z79.01 and Paroxysmal atrial fibrillation I48.0 Brody Goldberg MD [address] [place] [address] [id number] 11/17/2024 Brody Bombardier Paroxysmal atrial fibrillation I48.0 ; Encounter for administration of vaccine Z23 and shelter current use of anticoagulant therapy Z79.01 Brody Goldberg MD [address] [place] [address] [id number] 12/01/2024 Brody Bombardier Paroxysmal atrial fibrillation I48.0 and Encounter for current long-term use of anticoagulants Z79.01 Brody Goldberg MD [address] [place] [address] [id number] 12/17/2024 Brody Bombardier Paroxysmal atrial fibrillation I48.0 and Encounter for current long-term use of anticoagulants Z79.01 Brody Goldberg MD [address] [place] [address] [id number] 12/31/2023 Brody Bombardier Paroxysmal atrial fibrillation I48.0 and Encounter for current long-term use of anticoagulants Z79.01 Brody Goldberg MD [address] [place] [address] [id number] 01/07/2024 Brody Bombardier Paroxysmal atrial fibrillation I48.0 and Encounter for current long-term use of anticoagulants Z79.01 Brody Goldberg MD [address] [place] [address] [id number] 04/09/2024 Brody Bombardier Paroxysmal atrial fibrillation I48.0 ; 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 ; Pressure injury of sacral region, 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 and Mixed hyperlipidemia E78.2 Brody Goldberg MD [address] [place] [address] [id number] 10/08/2024 Brody Goldberg Meningioma D32.9 ; Paroxysmal atrial fibrillation I48.0 ; 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 ; PVC (premature ventricular contraction) I49.3 ; Essential hypertension I10 ; Mixed hyperlipidemia E78.2 and Acute systolic congestive heart failure I50.21 Brody Goldberg MD [address] [place] [address] [id number] 03/24/2024 Brody Goldberg Pressure sore L89.90 Brody Goldberg MD [address] [place] [address] [id number] 06/18/2024 Brody Goldberg MD [address] [place] [address] [id number] 09/14/2024 Brody Goldberg MD [address] [place] [address] [id number] 02/25/2024 Brody Goldberg MD [address] [place] [address] [id number] 06/05/2024 Brody Goldberg MD [address] [place] [address] [id number] 12/15/2024 Brody Goldberg Assessments Encounter Date Diagnosis (ICD Code) Assessment Notes Treatment Notes Treatment Clinical Notes Section Notes 01/21/2024 Paroxysmal atrial fibrillation (ICD-10 - I48.0) 01/21/2024 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 (ICD-10 - Z79.01) 02/04/2024 Paroxysmal atrial fibrillation (ICD-10 - I48.0) 02/04/2024 shelter current use of anticoagulant (ICD-10 - Z79.01) 02/25/2024 Paroxysmal atrial fibrillation (ICD-10 - I48.0) 02/25/2024 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 (ICD-10 - Z79.01) 03/12/2024 Paroxysmal atrial fibrillation (ICD-10 - I48.0) 03/12/2024 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 (ICD-10 - Z79.01) 03/24/2024 Paroxysmal atrial fibrillation (ICD-10 - I48.0) 03/24/2024 shelter current use of anticoagulant therapy (ICD-10 - [...] 12/01/2024 Paroxysmal atrial fibrillation (ICD-10 - I48.0) 12/17/2024 Paroxysmal atrial fibrillation (ICD-10 - I48.0) 12/31/2023 [...] last note from dr hernandez neurosurgery at [facility] 10/08/2024 Paroxysmal atrial fibrillation (ICD-10 - I48.0) seems well controlled, will contnue current regiment 03/24/2024 Pressure sore (ICD-10 - L89.90) 06/30/2024 Encounter for current long-term use of [...] Paroxysmal atrial fibrillation (ICD-10 - I48.0) 11/17/2024 shelter current use of anticoagulant therapy (ICD-10 - Z79.01) 12/01/2024 Encounter for current long-term use of anticoagulants (ICD-10 - Z79.01) 12/17/2024 Encounter for current long-term use of [...] I49.3) had monitor recently. have him call cook specialty foreign food to get results 09/22/2024 Acute systolic congestive [...] SINUS W&WO CONTRAST 12/08/2012 Prothrombin Time INR 12/17/2024 Next Appt Details Provider Name:Brody reyesr, 04/09/2025 08:15:00 AM, [address] [place] [address], [address], [phone], Provider Name:Brody reyesr, 04/16/2025 09:00:00 AM, [address] [place] [address], [address], [phone], Provider Name:Brody reyesr, 10/04/2025 08:00:00 AM, [address] [place] [address], [address], [phone], Provider Name:Brody reyesr, 10/11/2025 08:30:00 AM, [address] [place] [address], [address], [phone], Insurance Providers Payer Name Payer Address Payer Phone Subscriber Number Group Number Insured Name Patient Relationship to Insured Coverage Start Date Coverage End Date [employer] [address] [place] [address] [id number] Kristina Rodriguez Self - patient is the insured 3 [employer] [place] [address] [place] [address] [id number] Kristina Rodriguez Self - patient is the [...]
== END 2024-12-17 10:26 | disposition home or self-care (01) ==
LOC: HO.LNP 10:25
PROVIDERS: Visit Provider Internal Medicine
DX: I48.0 Paroxysmal atrial fibrillation (principal); Z79.01 Long term (current) use of anticoagulants
CPT/HCPCS: 85610

== ENCOUNTER 2024-12-29 11:05 | Outpatient (REF) | payer MEDICARE, SELFPAY ==
--- OUTSIDE RECORDS SUMMARY | 2020-07-28 11:05 | XMS_ITS | Encounter Summary ---
Author Organization [facility] Address [address] [place] [address] [place] [address] Phone Care Team Providers Care Flask Fitter Name Role Phone Brody Goldberg MD Primary Care Provider Encounter Details Date Type Department Care Team (Late st Contact Info) Description 07/28/2020 11:05 AM EDT Hospital Encounter [facility] [address] [place] [phone] Luis Manuel Cabello PA [address] [place] [phone] [email or web address] g Social History Tobacco Use Types Packs/Day [...] on filedocumented in this encounter Care Teams Flask Fitter Relationship Specialty Start Date End Date Brody Goldberg MD [address] [place] [address] [place] [address] PCP - General Internal Medicine 07/28/20 documented as of this encounter Additional Source Comments The information contained in this document represents components of the legal health record. It is not the complete legal health record.[facility]
--- OUTSIDE RECORDS SUMMARY | 2024-11-17 05:45 | XMS_ITS ---
Author Organization Brody Goldberg MD Address [address] [place] [phone] Care Team Providers Care Shot Man Name Role Phone Brody Goldberg Primary Care Provider Results Component Value Reference Range Notes Prothrombin Time INR Reviewed date:11/17/2024 12:36:36 PM Interpretation: Performing Lab:[facility], [address] [place] [phone] Notes/Report: Prothrombin Time 30.7 10.9-12.4 SEC INTERNATIONAL [...] Goldberg MD [address] [place] [phone] 11/17/2024 Brody Goldberg Paroxysmal atrial fibrillation I48.0 ; Encounter for administration of vaccine Z23 and detention current use of anticoagulant therapy Z79.01 Assessments Encounter Date Diagnosis (ICD Code) Assessment Notes Treatment Notes Treatment Clinical Notes Section Notes 11/17/2024 Paroxysmal atrial fibrillation (ICD-10 - I48.0) 11/17/2024 Encounter for administration of vaccine (ICD-10 - Z23) 11/17/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 - Z79.01) Plan Of Treatment Next Appt Details Provider Name:Brody reyesr, 04/09/2025 08:15:00 AM, [address] [place] [address], [address] [place] [address], [phone], Provider Name:Brody reyesr, 04/16/2025 09:00:00 AM, [address] [place] [address], [address], [phone], Provider Name:Brody reyesr, 10/04/2025 08:00:00 AM, [address] [place] [address], [address], [phone], Provider Name:Brody Samir Kati reyesr, 10/11/2025 08:30:00 AM, [address] [place] [address], [address], [phone], Progress Notes * Jayy RODRIGUEZ LDOB:1945 ([age] yo M)Acc No.[id number]:11/17/2024 Progress Note Patient: Jayy ANDRADE Provider: Breezy Goldberg MD :1945 A ge:79 Y S ex:Male Date:11/17/2024 Address:[address] [place], [place] [phone] Subjective: * Chief Complaints: * 1 . [...] * Procedure Codes: 3 6415 VENIPUNCT, ROUTINE*, 43345 FLU VACC PRSV FREE INC ANTIG, 79366 VENIPUNCT, ROUTINE*, G0008 ADMN FLU VAC NO FEE SCHED SAME DAY * * The named appointment provid er may or may not be the originator of this progress note, and it is not deemed complete until electronically signed by the appointment provider. Sign off status: Pending * Provider: Breezy Goldberg MD Date: 0 11/17/2024 Generated for Doron granados/Quang/Pauline on: 01:23 PM EDT
--- OUTSIDE RECORDS SUMMARY | 2024-12-01 04:45 | XMS_ITS ---
Author Organization Brody Goldberg MD Address [address] [place] [phone] Care Team Providers Care Junior Electrical Engineer Name Role Phone Brody Goldberg Primary Care Provider Results Component Value Reference Range Notes Prothrombin Time INR Reviewed date:12/01/2024 12:22:34 PM Interpretation: Performing Lab:[facility], [address] [place] [phone] Notes/Report: Prothrombin Time 38.8 10.9-12.4 SEC INTERNATIONAL [...] Brody Goldberg MD [address] [place] [phone] 12/01/2024 Brody Goldberg Paroxysmal atrial fibrillation I48.0 and Encounter for current long-term use of anticoagulants Z79.01 Assessments Encounter Date Diagnosis (ICD Code) Assessment Notes Treatment Notes Treatment Clinical Notes Section Notes 12/01/2024 Paroxysmal atrial fibrillation (ICD-10 - I48.0) 12/01/2024 Encounter for current long-term use of anticoagulants (ICD-10 - Z79.01) Plan Of Treatment Next Appt Details Provider Name:Brody Parikh syd, 04/09/2025 08:15:00 AM, [address] [place] [address], [address] [place] [address], [phone], Provider Name:Brody Parikh syd, 04/16/2025 09:00:00 AM, [address] [place] [address], [place] [address], [place], [place], [phone], Provider Name:Brody Parikh syd, 10/04/2025 08:00:00 AM, [address] [place] [address], [address], [phone], Provider Name:Brody Parikh syd, 10/11/2025 08:30:00 AM, [address] [place] [address], [address], [phone], Progress Notes * JENNIFER, Jayy LDOB:1945 ([age] yo M)Acc No.[id number]:12/01/2024 Progress Note Patient: Jayy ANDRADE Provider: Breezy Goldberg MD :1945 A ge:79 Y S ex:Male Date:12/01/2024 Address:[address] [place], [place] [phone] Subjective: * Chief Complaints: * 1 . [...] 0 12/01/2024 Generated for Doron granados/Quang/Pauline on: 01:23 PM EDT
--- OUTSIDE RECORDS SUMMARY | 2024-12-15 03:03 | XMS_ITS ---
Author Organization Brody Goldberg MD Address 10 [facility] [address] [place] [address] [phone] Care Team Providers Care Case Operator Name Role Phone Brody Goldberg Primary Care Provider REASON FOR VISIT Yovanny Rodriguez PT-INR Encounters Encounter Location Date Provider Diagnosis Brody Goldberg MD [address] [place] [address] [place] [address] [phone] 12/15/2024 Brody Goldberg Plan Of Treatment Next Appt Details Provider Name:Brody velarde, 04/09/2025 08:15:00 AM, [address] [place] [address], [address], [phone], Provider Name:Brody Parikh iemiller, 04/16/2025 09:00:00 AM, [address] [place] [address], [address], [phone], Provider Name:Brody velarde, 10/04/2025 08:00:00 AM, [address] [place] [address], [address], [phone], Provider Name:Brody velarde, 10/11/2025 08:30:00 AM, [address] [place] [address], [address], [phone], Progress Notes * Jayy RODRIGUEZ LDOB:1945 ([age] yo M)Acc No.[id number]:12/15/2024 Patient: Jayy ANDRADE :1945 A ge:79 Y S ex:Male Address:[address] [place] [address] * true * Date: Generated for Doron granados/Quang/Yismitting on: 01:23 PM EDT
--- OUTSIDE RECORDS SUMMARY | 2024-12-17 05:15 | XMS_ITS ---
Author Organization Brody Goldberg MD Address [address] [place] [phone] Care Team Providers Care Oncology Admin Name Role Phone Brody Goldberg Primary Care Provider Results Component Value Reference Range Notes Prothrombin Time INR Reviewed date:12/17/2024 12:31:54 PM Interpretation: Performing Lab:[facility], [address] [place] [phone] Notes/Report: Prothrombin Time 31.6 10.9-12.4 SEC INTERNATIONAL [...] Brody Goldberg MD [address] [place] [phone] 12/17/2024 Brody Goldberg Paroxysmal atrial fibrillation I48.0 and Encounter for current long-term use of anticoagulants Z79.01 Assessments Encounter Date Diagnosis (ICD Code) Assessment Notes Treatment Notes Treatment Clinical Notes Section Notes 12/17/2024 Paroxysmal atrial fibrillation (ICD-10 - I48.0) 12/17/2024 Encounter for current long-term use of anticoagulants (ICD-10 - Z79.01) Plan Of Treatment Next Appt Details Provider Name:Brody Parikh syd, 04/09/2025 08:15:00 AM, [address] [place] [address], [address], [phone], Provider Name:Brody Parikh syd, 04/16/2025 09:00:00 AM, [address] [place] [address], [address], [phone], Provider Name:Brody Parikh syd, 10/04/2025 08:00:00 AM, [address] [place] [address], [address], [phone], Provider Name:Brody Parikh syd, 10/11/2025 08:30:00 AM, [address] [place] [address], [address], [phone], Progress Notes * JENNIFER, Jayy LDOB:1945 ([age] yo M)Acc No.[id number]:12/17/2024 Progress Note Patient: Jayy ANDRADE Provider: Breezy Goldberg MD :1945 A ge:79 Y S ex:Male Date:12/17/2024 Address:[address] [place], [place] [phone] Subjective: * Chief Complaints: * 1 . [...] Breezy Goldberg MD Date: Generated for Doron Paulino/Pauline on: 01:22 PM EDT
--- OUTSIDE RECORDS SUMMARY | 2024-12-29 04:15 | XMS_ITS ---
Author Organization Brody Goldberg MD Address [address] [place] [phone] Care Team Providers Care Twister Operator Name Role Phone Brody Goldberg Primary Care Provider [phone] Results Component Value Reference Range Notes Prothrombin Time INR Reviewed date:12/29/2024 12:34:34 PM Interpretation: Performing Lab:[facility], [address] [place] [phone] Notes/Report: Prothrombin Time 27.0 10.9-12.4 SEC INTERNATIONAL [...] Brody Goldberg MD [address] [place] [phone] 12/29/2024 Brody Goldberg Paroxysmal atrial fibrillation I48.0 and Encounter for current long-term use of anticoagulants Z79.01 Assessments Encounter Date Diagnosis (ICD Code) Assessment Notes Treatment Notes Treatment Clinical Notes Section Notes 12/29/2024 Paroxysmal atrial fibrillation (ICD-10 - I48.0) 12/29/2024 Encounter for current long-term use of anticoagulants (ICD-10 - Z79.01) Plan Of Treatment Next Appt Details Provider Name:Brody Parikh syd, 04/09/2025 08:15:00 AM, [address] [place] [address], [address], [phone], Provider Name:Brody Parikh syd, 04/16/2025 09:00:00 AM, [address] [place] [address], [address], [phone], Provider Name:Brody Parikh syd, 10/04/2025 08:00:00 AM, [address] [place] [address], [address], [phone], Provider Name:Brody Parikh syd, 10/11/2025 08:30:00 AM, [address] [place] [address], [address], [phone], Progress Notes * JENNIFER, Jayy LDOB:1945 ([age] yo M)Acc No.[id number]:12/29/2024 Progress Note Patient: Jayy ANDRADE Provider: Breezy Goldberg MD :1945 A ge:79 Y S ex:Male Date:12/29/2024 Address:[address] [place], [place] [phone] Subjective: * Chief Complaints: * 1 . [...] MD Date: Generated for Doron Paulino/Pauline on: 01:23 PM EDT
[2024-12-29 11:22] LABS: INTERNATIONAL NORM RATIO 2.4 (0.9-1.1); Prothrombin Time 27.0 SEC (10.9-12.4)
--- OUTSIDE RECORDS SUMMARY | 2024-12-29 13:22 | XMS_ITS | Clinical Summary ---
Author Organization [facility] Address [address] [address] Phone Care Team Providers Care Wood Chopper Name Role Phone Brody Goldberg MD Primary [...] file Insurance MEDICARE PART A & B [facility] MEDICARE SUPPLEMENT MEDICARE PART A & B MEDICARE SUPPLEMENT MEDICARE PART A & B MEDICARE SUPPLEMENT MEDICARE PART A & B Member Subscriber Plan / Payer (Ef fective 2012-Present) Name:Jayy Hawk Member ID:[id number] Relation to Subscriber:Self Name:Jayy Hawk Subscriber ID:[id number] Payer ID:[id number] Group ID:Not on file Type:Medicare Address: [employer] [address] MEDICARE SUPPLEMENT MEDICARE PART A & B [facility] MEDICARE SUPPLEMENT MEDICARE PART A & B MEDICARE SUPPLEMENT MEDICARE PART A & B MEDICARE SUPPLEMENT MEDICARE PART A & B MEDICARE SUPPLEMENT MEDICARE PART A & B [id number] [place] [address] MEDICARE SUPPLEMENT Care Teams Wood Chopper Relationship Specialty Start Date End Date Brody Goldberg MD [address] [place] [address] [place] [address] PCP - General Internal Medicine 07/28/20 Additional Source Comments The information contained in this document represents components of the legal health record. It is not the complete legal health record.[facility]
--- OUTSIDE RECORDS SUMMARY | 2024-12-29 13:23 | XMS_ITS | Patient Health Record ---
Author Organization [facility] Address [address] [place] [address] Care Team Providers Care Media Technician Name Role Phone Brody Goldberg MD Primary Care Provider Armando Hunt Unavailable [phone] Reason For Referral No Information Medications Medication [...] Status W/U Status Risk Notes Problem Diarrhea (71341707) Diarrhea (787.91) Active confirmed Problem Change in bowel habit (30267373) Change in bowel habits (787.99) Active confirmed Problem History of adenomatous polyp of colon (089653838) History of adenomatous polyp of colon (V12.72) Active confirmed Problem Weight loss (990020807) Weight loss (783.21) Active confirmed Plan Of Treatment Future Test Test Name Order Date COLONOSCOPY 09/03/2013 Insurance Providers Payer Name Payer Address Payer Phone Subscriber Number Group Number Insured Name Patient Relationship to Insured Coverage Start Date Coverage End Date MEDICARE [place] [address] [place] [address] [id number] KEYSHA RODRIGUEZ Self - patient is the insured [facility] [address] [place] [id number] KEYSHA RODRIGUEZ Self - patient is the insured Medical (General) History Medical History History ICD Code NIDDM hypertension Denies CT,CVA,Lung disease,renal disease Atrial fib Anxiety On Finasteride [...]
--- OUTSIDE RECORDS SUMMARY | 2024-12-29 13:24 | XMS_ITS | Patient Health Record ---
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 Name Role Phone Brody Goldberg Primary Care Provider Allergies Allergen (clinical drug ingredient) Drug/Non Drug Allergy documented on EMR Reaction Allergy Type Onset Date Status metformin Metformin HCl diarrhea Drug Allergy Act enzo lisinopril Lisinopril couigh Drug Allergy Activ e Results Component Value Reference Range Notes Prothrombin Time INR Reviewed date:01/21/2024 12:49:48 PM Interpretation: Performing Lab:[address] [phone] Notes/Report: Prothrombin Time 31.9 10.9-12.4 [employer] [...] Reviewed date:02/17/2024 08:32:12 AM Interpretation: Performing Lab:[address] [phone] Notes/Report: Prothrombin Time 20.5 10.9-12.4 SEC [employer] [...] Reviewed date:02/25/2024 12:31:15 PM Interpretation: Performing Lab:[address] [address] Notes/Report: Prothrombin Time 26.0 10.9-12.4 SEC [employer]NATIONAL [...] INR Reviewed date:03/12/2024 12:34:57 PM Interpretation: Performing Lab:[facility], [address] [place] [phone] Notes/Report: Prothrombin Time 32.7 10.9-12.4 SEC [employer]NATIONAL [...] INR Reviewed date:03/24/2024 12:22:39 PM Interpretation: Performing Lab:[facility], [address] [place] [phone] Notes/Report: Prothrombin Time 25.6 10.9-12.4 [employer] [...] Reviewed date:04/02/2024 05:16:30 PM Interpretation: Performing Lab:[address] [address] Notes/Report: Bilirubin Total 0.5 0.0-1.0 mg/dL Bilirubin Direct 0.2 0.0-0.5 mg/dL Aspartate Amino Transferase 24 5-37 U/L Alanine Aminotransferase 18 0-40 U/L Total Protein 7.3 6.5-8.0 g/dL Albumin Level 4.1 3.5-5.0 g/dL Alkaline Phosphatase 65 39-117 U/L Glucose Fasting Reviewed date:04/02/2024 05:15:41 PM Interpretation: Performing Lab:[address] [address] Notes/Report: Glucose Fasting 153 60-99 mg/dL A fasting glucose of 126 mg/dl or greater on more than one occasion is considered diagnostic of diabetes. Lipid Panel with Reflex Reviewed date:04/02/2024 05:16:03 PM Interpretation: Performing Lab:[address] [phone] Notes/Report: Triglycerides 196 <150 mg/dL Desirable Triglyceride: [...] Reviewed date:04/02/2024 05:16:13 PM Interpretation: Performing Lab:[address] [address] Notes/Report: Hemoglobin A1c % 7.1 <6.0 % [...] average glucose, using the formula of the F2Z-Vnfsqyj Average Glucose study (ADAG), Diabetes Care, Vol.31,#8, Oct. 2007 Prothrombin Time INR Reviewed date:04/09/2024 12:14:10 PM Interpretation: Performing Lab:[address] [address] Notes/Report: Prothrombin Time 31.7 10.9-12.4 SEC [employer] [...] INR Reviewed date:06/30/2024 11:32:00 AM Interpretation: Performing Lab:[facility], [address] [place] [phone] Notes/Report: Prothrombin Time 35.1 10.9-12.4 SEC INTERNATIONAL [...] INR Reviewed date:07/14/2024 12:30:07 PM Interpretation: Performing Lab:[facility], [address] [place] [phone] Notes/Report: Prothrombin Time 25.2 10.9-12.4 SEC INTERNATIONAL [...] INR Reviewed date:07/28/2024 11:29:24 AM Interpretation: Performing Lab:[facility], [address] [place] [phone] Notes/Report: Prothrombin Time 27.8 10.9-12.4 SEC INTERNATIONAL [...] INR Reviewed date:08/14/2024 07:43:22 AM Interpretation: Performing Lab:[facility], [address] [place] [phone] Notes/Report: Prothrombin Time 21.6 10.9-12.4 SEC [employer]NATIONAL [...] Reviewed date:08/25/2024 11:30:24 AM Interpretation: Performing Lab:[address] [address] Notes/Report: Prothrombin Time 25.1 10.9-12.4 SEC [employer]NATIONAL [...] Reviewed date:09/08/2024 10:54:20 AM Interpretation: Performing Lab:[address] [address] Notes/Report: Prothrombin Time 24.8 10.9-12.4 SEC INTERNATIONAL [...] Reviewed date:09/22/2024 12:24:19 PM Interpretation: Performing Lab:[address] [phone] Notes/Report: White Blood Count 8.7 4.8-10.8 X10*3/uL [...] C ORRECTED REPORT C ORRECTED REPORT Comprehensive [place]. Panel Fa st Reviewed date:09/22/2024 12:50:27 PM Interpretation: Performing Lab:[facility], [address] [place] [phone] Notes/Report: Sodium 141 135-145 mmol/L Potassium 4.1 [...] Panel Reviewed date:09/22/2024 12:24:29 PM Interpretation: Performing Lab:[facility], [address] [place] [phone] Notes/Report: Triglycerides 171 <150 mg/dL Desirable Triglyceride: [...] (Free>4and<10) Reviewed date:09/22/2024 12:23:28 PM Interpretation: Performing Lab:[facility], [address] [place] [phone] Notes/Report: PSA,Total (Free>4and<10) 1.22 0.00-4.00 ng/mL A [...] Random Reviewed date:09/22/2024 12:32:32 PM Interpretation: Performing Lab:[facility], [address] [place] [phone] Notes/Report: Creatinine Urine 102.44 Microalbumin Urine 27.0 Microalbum/Creatinine Ratio Ur 26.3 <30 ug/mg cr Albumin/Creatinine Ratio Reference Ranges: Normal: < 30 ug/mg creatinine Microalbuminuria: 30 - 300 ug/mg creatinine Clinical Albuminuria: > 300 ug/mg creatinine Hemoglobin A1c Reviewed date:09/22/2024 12:32:41 PM Interpretation: Performing Lab:[address] [address] Notes/Report: Hemoglobin A1c % 7.0 <6.0 % [...] average glucose, using the formula of the R1K-Rutgigy Average Glucose study (ADAG), Diabetes Care, Vol.31,#8, Oct. 2007 UA ClnCatch+Micro w/rflx Cul t Reviewed date:09/22/2024 12:46:13 PM Interpretation: Performing Lab:[facility], [address] [place] [phone] Notes/Report: Urine, Clean Catch Color Urine Yellow Appearance Urine Turbid PH 5.5 5.0-9.0 Glucose Urine UA Negative Negative mg/dL Urine Blood Negative Negative Specific [place] - Urine 1.015 1.005-1.025 Urine Protein Negative Neg-Trace mg/dL Urine Ketones Negative Negative mg/dL Nitrite Urine Negative Negative Leukocyte Esterase Urine Negative Negative RBC Urine 0-2 0-2 /HPF WBC Urine 0-5 0-5 /HPF Squamous Epithelial Cell Urine 0-2 0-2 /HPF Bacteria Urine None Seen None Seen Hyaline Casts Urine 0-2 0-2 /LPF Prothrombin Time INR Reviewed date:10/08/2024 05:01:25 PM Interpretation: Performing Lab:[facility], [address] [place] [phone] Notes/Report: Prothrombin Time 28.8 10.9-12.4 SEC INTERNATIONAL [...] INR Reviewed date:10/20/2024 12:40:33 PM Interpretation: Performing Lab:[facility], [address] [place] [phone] Notes/Report: Prothrombin Time 32.9 10.9-12.4 SEC INTERNATIONAL [...] INR Reviewed date:11/03/2024 12:50:48 PM Interpretation: Performing Lab:[facility], [address] [place] [phone] Notes/Report: Prothrombin Time 31.6 10.9-12.4 SEC INTERNATIONAL [...] INR Reviewed date:11/17/2024 12:36:36 PM Interpretation: Performing Lab:[facility], [address] [place] [phone] Notes/Report: Prothrombin Time 30.7 10.9-12.4 SEC INTERNATIONAL [...] INR Reviewed date:12/01/2024 12:22:34 PM Interpretation: Performing Lab:[facility], [address] [place] [phone] Notes/Report: Prothrombin Time 38.8 10.9-12.4 SEC INTERNATIONAL [...] 2.5 - 3.5 Prothrombin Time INR Reviewed date:12/17/2024 12:31:54 PM Interpretation: Performing Lab:[facility], [address] [place] [phone] Notes/Report: Prothrombin Time 31.6 10.9-12.4 SEC INTERNATIONAL [...] 2.5 - 3.5 Prothrombin Time INR Reviewed date:12/29/2024 12:34:34 PM Interpretation: Performing Lab:[facility], [address] [place] [phone] Notes/Report: Prothrombin Time 27.0 10.9-12.4 SEC INTERNATIONAL [...] INR Reviewed date:01/02/2024 08:22:51 AM Interpretation: Performing Lab:[facility], [address] [place] [phone] Notes/Report: Prothrombin Time 42.1 10.9-12.4 SEC INTERNATIONAL [...] INR Reviewed date:01/07/2024 01:11:11 PM Interpretation: Performing Lab:[facility], [address] [place] [phone] Notes/Report: Prothrombin Time 31.0 10.9-12.4 SEC INTERNATIONAL [...] Blood Reviewed date:01/05/2024 05:02:16 PM Interpretation: Performing Lab:[facility], [address] [place] [phone] Notes/Report: Glucose, Whole Blood 190 60-115 mg/dL METER #: [id number] Testing performed in the [facility]. Lipid Panel Reviewed date:03/17/2024 04:35:59 PM Interpretation: Performing Lab:[facility], [address] [place] [phone] Notes/Report: Triglycerides 207 <150 mg/dL Desirable Triglyceride: [...] A1c Reviewed date:03/15/2024 04:56:43 PM Interpretation: Performing Lab:[facility], [address] [place] [phone] Notes/Report: Hemoglobin A1c % 7.2 <6.0 % [...] average glucose, using the formula of the V3I-Xhfxdun Average Glucose study (ADAG), Diabetes Care, Vol.31,#8, Oct. 2007 Glucose, Whole Blood Reviewed date:03/17/2024 04:28:32 PM Interpretation: Performing Lab:[facility], [address] [place] [phone] Notes/Report: Glucose, Whole Blood 170 60-115 mg/dL METER #: [id number] Testing performed in the [facility] , [address], [facility]. Hold Red Reviewed date:04/02/2024 05:17:01 PM Interpretation: Performing Lab:[facility], [address] [place] [phone] Notes/Report: Hold Red See Note Specimen held untested for 24 hours; Call to request Chemistry testing. Glucose, Whole Blood Reviewed date:08/11/2024 11:12:03 AM Interpretation: Performing Lab:[facility], [address] [place] [address] Notes/Report: Glucose, Whole Blood 134 60-115 mg/dL METER #: [id number] Testing performed in the [facility] , [address], [facility]. Complete Blood Count Auto Di ff Reviewed date:09/15/2024 04:47:15 PM Interpretation: Performing Lab:[facility], [address] [place] [phone] Notes/Report: White Blood Count 10.6 4.8-10.8 X10*3/uL [...] INR Reviewed date:09/15/2024 12:34:11 PM Interpretation: Performing Lab:[address] [address] Notes/Report: Prothrombin Time 22.1 10.9-12.4 SEC [employer]NATIONAL [...] Panel Reviewed date:09/15/2024 12:40:51 PM Interpretation: Performing Lab:[address] [address] Notes/Report: Sodium 141 135-145 mmol/L Potassium 4.5 [...] date:09/14/2024 01:32:53 PM Interpretation: Performing Lab: Notes/Report: [place] [address] [address] Scan Report Signed Patient: Kristina Rodriguez MR#: [id number] : 1945 Acct:[id number] Age/Sex: 78 / M ADM Date: 09/13/24 Loc: HO.ED Attending Dr: Ordering Physician: Liz Levin Date of Service: 09/13/24 Procedure(s): CT cervical spine wo IV con Accession Number(s): [id number] cc: Brody Goldberg MD; Liz Levin Report Number: [id number]: Total DLP = 503.00 mGy-cm CLINICAL HISTORY: [...] in OV> 09/13/241813 DD/ 12 TD/TT: 09/13/241812 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: [address] [address] [address] Scan Report Signed Patient: Kristina Rodriguez MR#: [id number] : 1945 Acct:[id number] Age/Sex: 78 / M ADM Date: 09/13/24 Loc: HO.ED Attending Dr: Ordering Physician: Liz Levin Date of Service: 09/13/24 Procedure(s): CT cervical spine wo IV con Accession Number(s): [id number] cc: Brody Goldberg MD; Liz Levin Report Number: [id number]: Total DLP = 503.00 mGy-cm CLINICAL HISTORY: [...] in OV> 09/13/241813 DD/ 12 TD/TT: 09/13/241812 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: CT head/brain wo con Reviewed date:10/08/2024 01:13:57 PM Interpretation:10-08-2024 Performing Lab: Notes/Report: [place] [address] [address] Scan Report Signed Patient: Kristina Rodriguez MR#: [id number] : 1945 Acct:[id number] Age/Sex: 78 / M ADM Date: 09/13/24 Loc: HO.ED Attending Dr: Ordering Physician: Liz Levin Date of Service: 09/13/24 Procedure(s): CT head/brain wo IV con Accession Number(s): [id number] cc: Brody Goldberg MD; Liz Levin Report Number: [id number]: Total DLP = 840.00 mGy-cm CLINICAL HISTORY: [...] in OV> 09/13/241807 DD/ 06 TD/TT: 09/13/241806 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: [place] [address] [address] Scan Report Signed Patient: Kristina Rodriguez MR#: [id number] : 1945 Acct:[id number] Age/Sex: 78 / M ADM Date: 09/13/24 Loc: .ED Attending Dr: Ordering Physician: Liz Levin Date of Service: 09/13/24 Procedure(s): CT head/brain wo IV con Accession Number(s): [id number] cc: Brody Goldberg MD; Liz Levin Report Number: [id number]: Total DLP = 840.00 mGy-cm CLINICAL HISTORY: [...] in OV> 09/13/241807 DD/ 06 TD/TT: 09/13/241806 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: SLIDE REVIEW Reviewed date:09/22/2024 12:30:18 PM Interpretation: Performing Lab:[facility], [address] [place] [phone] Notes/Report: SLIDE REVIEW VERIFIED Reason For Referral [...] units Qpm once a day Acti ve Diprolene AF 0.05 % 1 application Transmission Maintenance Supervisor ally Once a day for 30 days 02/23/2019 Not-Takin g diazePAM 5 MG (Schedule IV Drug) T KVNG ONE TABLET BY MOUTH EVERY 6 HOURS NEEDED FOR MUSCLE SPASM Oral for 3 Not-Taking Atenolol 50 MG 1.5 tabs twice a day Active Vitamin D 50 MCG (2000 UT) 1 capsule Orally Once a day [...] day(s) Not-Taking Mupirocin 2 % 1 application Transmission Maintenance Supervisor ally Twice a day for 5 day(s) 03/28/2021 Active Ativan 0.5 MG 1 tablet at bedtime as needed Orally Once a day for 30 days 06/21/2011 Not-Taking PARoxetine HCl 20 MG TAKE 1 TABLET BY MO UT EVERY MORNING for 90 Active Jardiance 25 MG 1 tablet Orally Once a day Not-Taking Losartan Potassium-HCTZ 100-25 MG TAKE 1 TABLET BY MOUTH EVERY DAY for 90 Active Immunizations Vaccine Route Administration Date Status Comme [...] Risk Notes Problem Ventricular premature complex (disorder) (526492403) PVC (premature ventricular contraction) (I49.3) Active confirmed Problem 116279640 Thrombocytopenia (D69.6) Active confirmed Problem 364574181 Tubular adenoma (D36.9) Active confirmed Problem 68071653 Nevus (D22.9) Active confirmed Problem Mixed hyperlipidemia (420015460) Mixed hyperlipidemia (E78.2) Active confirmed Problem Paroxysmal atrial fibrillation (787573349) Paroxysmal atrial fibrillation (I48.0) Active confirmed Problem 3292970 Primary insomnia (F51.01) Active confirmed Problem 74011847 Lumbar disc disease (M51.9) Active confirmed Problem 70015049 Essential hypertension (I10) Active confirmed Problem Long-term current use of anticoagulant (141754491) 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) Active confirmed Problem Long-term current use of anticoagulant (251975885) custodial current use of anticoagulant therapy (Z79.01) Active confirmed Problem 13807461 Type 2 diabetes mellitus with 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) Active confirmed Problem 479706656 Acute systolic congestive heart failure (I50.21) Active confirmed Problem Pressure injury (morphologic abnormality) (1810470659) Pressure sore (L89.90) Active confirmed Problem Long-term current use of anticoagulant (899453591) Encounter for current long-term use of anticoagulants (Z79.01) Active confirmed Problem 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) Abnormal platelets (D69.1) Active confirmed Problem 986757059 Temporary low platelet count (D69.6) Active confirmed Problem Benign neoplasm of cerebral meninges (27459432) Meningioma (D32.9) Active confirmed Problem 330998647 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 Problem 23183787 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) Active confirmed Problem 90726427719385297 Pressure injur y of sacral region, unstageable (L89.150) Active confirmed Vital Signs Blood pressure diastolic 62 mm Hg 10/08/2024 Height 73.5 in 10/08/2024 Blood pressure systolic 112 mm Hg 10/08/2024 Weight 256 lbs 10/08/2024 BMI 33.31 kg/m2 10/08/2024 Encounters Encounter Location Date Provider Diagnosis Brody Goldberg MD [address] [place], [place] [id number] 01/21/2024 Brody Bombardier Paroxysmal atrial fibrillation I48.0 and 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 Z79.01 Brody Goldberg MD [address] [place] [id number] 02/04/2024 Brody Bombardier Paroxysmal atrial fibrillation I48.0 and 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 Z79.01 Brody Goldberg MD [address] [place] [id number] 02/25/2024 Brody Bombardier Paroxysmal atrial fibrillation I48.0 and custodial current use of anticoagulant Z79.01 Brody Goldberg MD [address] [place] [id number] 03/12/2024 Brody Bombardier Paroxysmal atrial fibrillation I48.0 and 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0 and Encounter for current long-term use of anticoagulants Z79.01 Brody Goldberg MD [address] [place] [address] [id number] 06/30/2024 Brody Bombardier Paroxysmal atrial fibrillation I48.0 and Encounter for current long-term use of anticoagulants Z79.01 Brody Goldberg MD [address] [place] [address] [id number] 07/14/2024 Brody Bombardier Paroxysmal atrial fibrillation I48.0 and Encounter for current long-term use of anticoagulants Z79.01 Brody Goldberg MD [address] [place] [address] [id number] 07/28/2024 Brody Bombardier Paroxysmal atrial fibrillation I48.0 and Encounter for current long-term use of anticoagulants Z79.01 Brody Goldberg MD [address] [place] [address] [id number] 08/11/2024 Brody Bombardier Paroxysmal atrial fibrillation I48.0 and Encounter for current long-term use of anticoagulants Z79.01 Brody Goldberg MD [address] [place] [address] [id number] 08/25/2024 Brody Bombardier Paroxysmal atrial fibrillation I48.0 and Encounter for current long-term use of anticoagulants Z79.01 Brody Goldberg MD [address] [place] [address] [id number] 09/08/2024 Brody Bombardier Paroxysmal atrial fibrillation I48.0 and Encounter for current long-term use of anticoagulants Z79.01 Brody Goldberg MD [address] [place] [address] [id number] 09/22/2024 Brody Mirianardier Mixed hyperlipidemia E78.2 ; 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 ; Thrombocytopenia D69.6 and Acute systolic congestive heart failure I50.21 Brody Goldberg MD [address] [place] [address] [id number] 10/08/2024 Brody Bombardier Paroxysmal atrial fibrillation I48.0 and Encounter for current long-term use of anticoagulants Z79.01 Brody Goldberg MD [address] [place] [address] [id number] 10/20/2024 Brody Bombardier Paroxysmal atrial fibrillation I48.0 and Encounter for current long-term use of anticoagulants Z79.01 Brody Goldberg MD [address] [place] [address] [id number] 11/03/2024 Brody Goldberg Encounter for curren t long-term use of anticoagulants Z79.01 and Paroxysmal atrial fibrillation I48.0 Brody Goldberg MD [address] [place] [address] [id number] 11/17/2024 Brody Mirianardier Paroxysmal atrial fibrillation I48.0 ; Encounter for administration of vaccine Z23 and 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 therapy Z79.01 Brody Goldberg MD [address] [place] [address] [id number] 12/01/2024 Brody Bombardier Paroxysmal atrial fibrillation I48.0 and Encounter for current long-term use of anticoagulants Z79.01 Brody Goldberg MD [address] [place] [address] [id number] 12/17/2024 Brody Mirianardier Paroxysmal atrial fibrillation I48.0 and Encounter for current long-term use of anticoagulants Z79.01 Brody Goldberg MD [address] [place] [address] [id number] 12/29/2024 Brody Bombardier Paroxysmal atrial fibrillation I48.0 and Encounter for current long-term use of anticoagulants Z79.01 Brody Goldberg MD [address] [place] [address] [id number] 12/31/2023 Brody Bombardier Paroxysmal atrial fibrillation I48.0 and Encounter for current long-term use of anticoagulants Z79.01 Brody Goldberg MD [address] [place] [address] [id number] 01/07/2024 Brody Bombardivikki Paroxysmal atrial fibrillation I48.0 and Encounter for current long-term use of anticoagulants Z79.01 Brody Goldberg MD [address] [place] [address] [id number] 04/09/2024 Brody Mirianardivikki Paroxysmal atrial fibrillation I48.0 ; 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 ; Pressure injury of sacral region, 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 and Mixed hyperlipidemia E78.2 Brody Goldberg MD [address] [place] [address] [id number] 10/08/2024 Brody Mirianardier Meningioma D32.9 ; Paroxysmal atrial fibrillation I48.0 ; 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 ; PVC (premature ventricular contraction) I49.3 ; Essential hypertension I10 ; Mixed hyperlipidemia E78.2 and Acute systolic congestive heart failure I50.21 Brody Goldberg MD [address] [place] [address] [id number] 03/24/2024 Brody Goldberg Pressure sore L89.90 Brody Goldberg MD [address] [place] [address] [id number] 06/18/2024 Brody Goldberg MD [address] [place] [address] [id number] 09/14/2024 Brody Goldberg MD [address] [place] [address] [id number] 02/25/2024 Brody Goldberg MD [address] [place] [address] [id number] 06/05/2024 Brody Goldberg MD [address] [place], [place] [id number] 12/15/2024 Brody Goldberg Assessments Encounter Date Diagnosis (ICD Code) Assessment Notes Treatment Notes Treatment Clinical Notes Section Notes 01/21/2024 Paroxysmal atrial fibrillation (ICD-10 - I48.0) 01/21/2024 custodial current use of anticoagulant (ICD-10 - Z79.01) 02/04/2024 Paroxysmal atrial fibrillation (ICD-10 - I48.0) 02/04/2024 custodial current use of anticoagulant (ICD-10 - Z79.01) 02/25/2024 Paroxysmal atrial fibrillation (ICD-10 - I48.0) 02/25/2024 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 (ICD-10 - Z79.01) 03/12/2024 Paroxysmal atrial fibrillation (ICD-10 - I48.0) 03/12/2024 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 (ICD-10 - Z79.01) 03/24/2024 Paroxysmal atrial fibrillation (ICD-10 - I48.0) 03/24/2024 custodial current use of anticoagulant therapy (ICD-10 [...] 12/17/2024 Paroxysmal atrial fibrillation (ICD-10 - I48.0) 12/29/2024 Paroxysmal atrial fibrillation (ICD-10 - I48.0) 12/31/2023 [...] last note from dr hernandez neurosurgery at [facility] 10/08/2024 Paroxysmal atrial fibrillation (ICD-10 [...] Paroxysmal atrial fibrillation (ICD-10 - I48.0) 11/17/2024 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 have him call manager supply to get results 09/22/2024 Acute systolic congestive [...] Provider Name:Brody velarde, 04/09/2025 08:15:00 AM, [address] [facility], [address], [place], [phone], Provider Name:Brody Parikh ericr, 04/16/2025 09:00:00 AM, [address] [facility], [address], [place], [phone], Provider Name:Brody Parikh ericr, 10/04/2025 08:00:00 AM, [address] [facility], [address], [place], [phone], Provider Name:Brody Parikh ier, 10/11/2025 08:30:00 AM, [address] [place] [address], Suite [facility], [place], [phone], Insurance Providers Payer Name Payer Address Payer Phone Subscriber Number Group Number Insured Name Patient Relationship to Insured Coverage Start Date Coverage End Date MEDICARE NHIC [address] [place] [address] [id number] KennKristina watkins Self - patient is the insured 3 [employer] [place] [address] [place] [address] [id number] Kristina Rodriguez Self - patient is the [...]
== END 2024-12-29 11:06 | disposition home or self-care (01) ==
LOC: HO.LNP 11:05
PROVIDERS: Visit Provider Internal Medicine
DX: I48.0 Paroxysmal atrial fibrillation (principal); Z79.01 Long term (current) use of anticoagulants
CPT/HCPCS: 85610

== ENCOUNTER 2025-01-12 08:30 | Outpatient (REF) | payer MEDICARE, SELFPAY ==
--- OUTSIDE RECORDS SUMMARY | 2020-07-28 11:05 | XMS_ITS | Encounter Summary ---
Author Organization [facility] Address [address] [place] [address] [place] [address] Phone Care Team Providers Care Ar Manager Name Role Phone Brody Goldberg MD Primary Care Provider Encounter Details Date Type Department Care Team (Late st Contact Info) Description 07/28/2020 11:05 AM EDT Hospital Encounter [facility] [address] [place] [address] Luis Manuel Cabello PA [address] [place] [phone] [email or web address] g Social History Tobacco Use Types Packs/Day [...] on filedocumented in this encounter Care Teams Ar Manager Relationship Specialty Start Date End Date Brody Goldberg MD [address] [place] [address] [place] [address] PCP - General Internal Medicine 07/28/20 documented as of this encounter Additional Source Comments The information contained in this document represents components of the legal health record. It is not the complete legal health record.[facility]
--- OUTSIDE RECORDS SUMMARY | 2024-10-08 07:00 | XMS_ITS ---
Author Organization Brody Goldberg MD Address [address] [place] [address] [phone] Care Team Providers Care Raw Products Director Name Role Phone Brody Goldberg Primary Care Provider Results Component Value Reference Range Notes Prothrombin Time INR Reviewed date:10/08/2024 05:01:25 PM Interpretation: Performing Lab:[facility], [address] [place] [phone] Notes/Report: Prothrombin Time 28.8 10.9-12.4 SEC INTERNATIONAL [...] Brody Goldberg MD [address] [place] [address] [id number] 10/08/2024 Brody Goldberg Paroxysmal atrial fibrillation I48.0 and Encounter for current long-term use of anticoagulants Z79.01 Assessments Encounter Date Diagnosis (ICD Code) Assessment Notes Treatment Notes Treatment Clinical Notes Section Notes 10/08/2024 Paroxysmal atrial fibrillation (ICD-10 - I48.0) 10/08/2024 Encounter for current long-term use of anticoagulants (ICD-10 - Z79.01) Plan Of Treatment Next Appt Details Provider Name:Brody Parikh syd, 04/09/2025 08:15:00 AM, [address] [place] [address], Suite [facility], [place], [place], [phone], Provider Name:Brody Parikh syd, 04/16/2025 09:00:00 AM, [address] [place] [address], Suite [facility], [place], [place], [phone], Provider Name:Brody Parikh ericr, 10/04/2025 08:00:00 AM, [address] [place] [address], [place] [address], [place], [place], [phone], Provider Name:Brody Parikh ericr, 10/11/2025 08:30:00 AM, [address] [place] [address], [address], [phone], Progress Notes * JENNIFER Jayy LDOB:1945 ([age] yo M)Acc No.[id number]:10/08/2024 Progress Note Patient: Jayy ANDRADE Provider: Breezy Goldberg MD :1945 A ge:78 Y S ex:Male Date:10/08/2024 Address:[address] [place], [place] [phone] Subjective: * Chief Complaints: * 1 . [...] 0 10/08/2024 Generated for Doron granados/Quang/Pauline on: 1 12:50 PM EDT
--- OUTSIDE RECORDS SUMMARY | 2024-10-20 05:45 | XMS_ITS ---
Author Organization Brody Goldberg MD Address [address] [place] [phone] Care Team Providers Care Wildfire Prevention Specialist Name Role Phone Brody Goldberg Primary Care Provider Results Component Value Reference Range Notes Prothrombin Time INR Reviewed date:10/20/2024 12:40:33 PM Interpretation: Performing Lab:[facility], [address] [place] [phone] Notes/Report: Prothrombin Time 32.9 10.9-12.4 SEC INTERNATIONAL [...] Brody Goldberg MD [address] [place] [phone] 10/20/2024 Brody Goldberg Paroxysmal atrial fibrillation I48.0 and Encounter for current long-term use of anticoagulants Z79.01 Assessments Encounter Date Diagnosis (ICD Code) Assessment Notes Treatment Notes Treatment Clinical Notes Section Notes 10/20/2024 Paroxysmal atrial fibrillation (ICD-10 - I48.0) 10/20/2024 Encounter for current long-term use of anticoagulants (ICD-10 - Z79.01) Plan Of Treatment Next Appt Details Provider Name:Brody Parikh syd, 04/09/2025 08:15:00 AM, [address] [place] [address], Suite [facility], [place], [place], [phone], Provider Name:Brody Parikh syd, 04/16/2025 09:00:00 AM, [address] [place] [address], Suite [facility], [place], [place], [phone], Provider Name:Brody Parikh syd, 10/04/2025 08:00:00 AM, [address] [place] [address], [place] [address], [place], [place], [phone], Provider Name:Brody Parikh syd, 10/11/2025 08:30:00 AM, [address] [place] [address], [address], [phone], Progress Notes * JENNIFER Jayy LDOB:1945 ([age] yo M)Acc No.[id number]:10/20/2024 Progress Note Patient: Jayy ANDRADE Provider: Breezy Goldberg MD :1945 A ge:79 Y S ex:Male Date:10/20/2024 Address:[address] [place], [place] [phone] Subjective: * Chief Complaints: * 1 . [...] 0 10/20/2024 Generated for Doron granados/Quang/Pauline on: 12:50 PM EDT
--- OUTSIDE RECORDS SUMMARY | 2024-11-03 05:00 | XMS_ITS ---
Author Organization Brody Goldberg MD Address [address] [place] [phone] Care Team Providers Care Workday Director Name Role Phone Brody Goldberg Primary Care Provider [phone] Results Component Value Reference Range Notes Prothrombin Time INR Reviewed date:11/03/2024 12:50:48 PM Interpretation: Performing Lab:[facility], [address] [place] [phone] Notes/Report: Prothrombin Time 31.6 10.9-12.4 SEC INTERNATIONAL [...] Brody Goldberg MD [address] [place] [phone] 11/03/2024 Brody Goldberg Encounter for curren t long-term use of anticoagulants Z79.01 and Paroxysmal atrial fibrillation I48.0 Assessments Encounter Date Diagnosis (ICD Code) Assessment Notes Treatment Notes Treatment Clinical Notes Section Notes 11/03/2024 Encounter for current long-term use of anticoagulants (ICD-10 - Z79.01) 11/03/2024 Paroxysmal atrial fibrillation (ICD-10 - I48.0) Plan Of Treatment Next Appt Details Provider Name:Brody Parikh syd, 04/09/2025 08:15:00 AM, [address] [place] [address], [address], [phone], Provider Name:Brody Parikh syd, 04/16/2025 09:00:00 AM, [address] [place] [address], [place] [address], [place], [place], [phone], Provider Name:Brody Parikh syd, 10/04/2025 08:00:00 AM, [address] [place] [address], [address], [phone], Provider Name:Brody Parikh syd, 10/11/2025 08:30:00 AM, [address] [place] [address], [address], [phone], Progress Notes * JENNIFER Jayy LDOB:1945 ([age] yo M)Acc No.[id number]:11/03/2024 Progress Note Patient: Jayy ANDRADE Provider: Breezy Goldberg MD :1945 A ge:79 Y S ex:Male Date:11/03/2024 Address:[address] [place] [address] Subjective: * Chief Complaints: * 1 . [...] 0 11/03/2024 Generated for Doron granados/Quang/Pauline on: 1 12:49 PM EDT
--- OUTSIDE RECORDS SUMMARY | 2024-11-17 05:45 | XMS_ITS ---
Author Organization Brody Goldberg MD Address [address] [place] [phone] Care Team Providers Care Magnetic Tape Typewriter Operator Name Role Phone Brody Goldberg Primary Care Provider Results Component Value Reference Range Notes Prothrombin Time INR Reviewed date:11/17/2024 12:36:36 PM Interpretation: Performing Lab:[facility], [address] [place] [phone] Notes/Report: Prothrombin Time 30.7 10.9-12.4 SEC INTERNATIONAL [...] Brody Goldberg MD [address] [place] [phone] 11/17/2024 Brody Goldberg Paroxysmal atrial fibrillation I48.0 ; Encounter for administration of vaccine Z23 and long-term current use of anticoagulant therapy Z79.01 Assessments Encounter Date Diagnosis (ICD Code) Assessment Notes Treatment Notes Treatment Clinical Notes Section Notes 11/17/2024 Paroxysmal atrial fibrillation (ICD-10 - I48.0) 11/17/2024 Encounter for administration of vaccine (ICD-10 - Z23) 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/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) Plan Of Treatment Next Appt Details Provider Name:Brody reyesr, 04/09/2025 08:15:00 AM, [address] [place] [address], [address] [place] [address], [phone], Provider Name:Brody reyesr, 04/16/2025 09:00:00 AM, [address] [place] [address], [address], [phone], Provider Name:Brody reyesr, 10/04/2025 08:00:00 AM, [address] [place] [address], [address], [phone], Provider Name:Brody Samir Kati reyesr, 10/11/2025 08:30:00 AM, [address] [place] [address], [address], [phone], Progress Notes * Jayy RODRIGUEZ LDOB:1945 ([age] yo M)Acc No.[id number]:11/17/2024 Progress Note Patient: Jayy ANDRADE Provider: Breezy Goldberg MD :1945 A ge:79 Y S ex:Male Date:11/17/2024 Address:[address] [place], [place] [phone] Subjective: * Chief Complaints: * 1 . [...] * Procedure Codes: 3 6415 VENIPUNCT, ROUTINE*, 49377 FLU VACC PRSV FREE INC ANTIG, 99292 VENIPUNCT, ROUTINE*, G0008 ADMN FLU VAC NO FEE SCHED SAME DAY * * The named appointment provid er may or may not be the originator of this progress note, and it is not deemed complete until electronically signed by the appointment provider. Sign off status: Pending * Provider: Breezy Goldberg MD Date: 0 11/17/2024 Generated for Doron granados/Quang/Kyitting on: 1 12:48 PM EDT
--- OUTSIDE RECORDS SUMMARY | 2024-12-01 04:45 | XMS_ITS ---
Author Organization Brody Goldberg MD Address [address] [place] [phone] Care Team Providers Care Vein Access Technician Name Role Phone Brody Goldberg Primary Care Provider [phone] Results Component Value Reference Range Notes Prothrombin Time INR Reviewed date:12/01/2024 12:22:34 PM Interpretation: Performing Lab:[facility], [address] [place] [phone] Notes/Report: Prothrombin Time 38.8 10.9-12.4 SEC INTERNATIONAL [...] Brody Goldberg MD [address] [place] [phone] 12/01/2024 Brody Goldberg Paroxysmal atrial fibrillation I48.0 and Encounter for current long-term use of anticoagulants Z79.01 Assessments Encounter Date Diagnosis (ICD Code) Assessment Notes Treatment Notes Treatment Clinical Notes Section Notes 12/01/2024 Paroxysmal atrial fibrillation (ICD-10 - I48.0) 12/01/2024 Encounter for current long-term use of anticoagulants (ICD-10 - Z79.01) Plan Of Treatment Next Appt Details Provider Name:Brody Parikh syd, 04/09/2025 08:15:00 AM, [address] [place] [address], [address] [place] [address], [phone], Provider Name:Brody Parikh syd, 04/16/2025 09:00:00 AM, [address] [place] [address], [place] [address], [place], [place], [phone], Provider Name:Brody Parikh syd, 10/04/2025 08:00:00 AM, [address] [place] [address], [address], [phone], Provider Name:Brody Parikh syd, 10/11/2025 08:30:00 AM, [address] [place] [address], [address], [phone], Progress Notes * JENNIFER, Jayy LDOB:1945 ([age] yo M)Acc No.[id number]:12/01/2024 Progress Note Patient: Jayy ANDRADE Provider: Breezy Goldberg MD :1945 A ge:79 Y S ex:Male Date:12/01/2024 Address:[address] [place], [place] [phone] Subjective: * Chief Complaints: * 1 . [...] MD Date: 0 12/01/2024 Generated for Doron granados/Quang/Pauline on: 1 12:48 PM EDT
--- OUTSIDE RECORDS SUMMARY | 2024-12-15 03:03 | XMS_ITS ---
Author Organization Brody Goldberg MD Address 10 [facility] [address] [place] [address] [phone] Care Team Providers Care Sewing Machine Repairer Name Role Phone Brody Goldberg Primary Care Provider REASON FOR VISIT Yovanny Rodriguez PT-INR Encounters Encounter Location Date Provider Diagnosis Brody Goldberg MD [address] [place] [address] [place] [address] [phone] 12/15/2024 Brody Goldberg Plan Of Treatment Next Appt Details Provider Name:Brody velarde, 04/09/2025 08:15:00 AM, [address] [place] [address], [address], [phone], Provider Name:Brody velarde, 04/16/2025 09:00:00 AM, [address] [place] [address], [address], [phone], Provider Name:Brody velarde, 10/04/2025 08:00:00 AM, [address] [place] [address], [address], [phone], Provider Name:Brody velarde, 10/11/2025 08:30:00 AM, [address] [place] [address], [address], [phone], Progress Notes * Jayy RODRIGUEZ LDOB:1945 ([age] yo M)Acc No.[id number]:12/15/2024 Patient: Jayy ANDRADE :1945 A ge:79 Y S ex:Male Address:[address] [place] [address] * true * Date: Generated for Doron granados/Quang/Yismitting on: 12:50 PM EDT
--- OUTSIDE RECORDS SUMMARY | 2024-12-17 05:15 | XMS_ITS ---
Author Organization Brody Goldberg MD Address [address] [place] [phone] Care Team Providers Care Slat Basket Maker Helper Name Role Phone Brody Goldberg Primary Care Provider Results Component Value Reference Range Notes Prothrombin Time INR Reviewed date:12/17/2024 12:31:54 PM Interpretation: Performing Lab:[facility], [address] [place] [phone] Notes/Report: Prothrombin Time 31.6 10.9-12.4 SEC INTERNATIONAL [...] Brody Goldberg MD [address] [place] [phone] 12/17/2024 Brody Goldberg Paroxysmal atrial fibrillation I48.0 and Encounter for current long-term use of anticoagulants Z79.01 Assessments Encounter Date Diagnosis (ICD Code) Assessment Notes Treatment Notes Treatment Clinical Notes Section Notes 12/17/2024 Paroxysmal atrial fibrillation (ICD-10 - I48.0) 12/17/2024 Encounter for current long-term use of anticoagulants (ICD-10 - Z79.01) Plan Of Treatment Next Appt Details Provider Name:Brody Parikh syd, 04/09/2025 08:15:00 AM, [address] [place] [address], [address], [phone], Provider Name:Brody Parikh syd, 04/16/2025 09:00:00 AM, [address] [place] [address], [address], [phone], Provider Name:Brody Parikh syd, 10/04/2025 08:00:00 AM, [address] [place] [address], [address], [phone], Provider Name:Brody Parikh syd, 10/11/2025 08:30:00 AM, [address] [place] [address], [address], [phone], Progress Notes * JENNIFER, Jayy LDOB:1945 ([age] yo M)Acc No.[id number]:12/17/2024 Progress Note Patient: Jayy ANDRADE Provider: Breezy Goldberg MD :1945 A ge:79 Y S ex:Male Date:12/17/2024 Address:[address] [place], [place] [phone] Subjective: * Chief Complaints: * 1 . [...] Goldberg MD Date: 1 Generated for Doron granados/Quang/Pauline on: 12:47 PM EDT
--- OUTSIDE RECORDS SUMMARY | 2024-12-29 04:15 | XMS_ITS ---
Author Organization Brody Goldberg MD Address [address] [place] [phone] Care Team Providers Care Membership Sales Advisor Name Role Phone Brody Goldberg Primary Care Provider Results Component Value Reference Range Notes Prothrombin Time INR Reviewed date:12/29/2024 12:34:34 PM Interpretation: Performing Lab:[facility], [address] [place] [phone] Notes/Report: Prothrombin Time 27.0 10.9-12.4 SEC INTERNATIONAL [...] Goldberg MD [address] [place] [phone] 12/29/2024 Brody Goldberg Paroxysmal atrial fibrillation I48.0 and Encounter for current long-term use of anticoagulants Z79.01 Assessments Encounter Date Diagnosis (ICD Code) Assessment Notes Treatment Notes Treatment Clinical Notes Section Notes 12/29/2024 Paroxysmal atrial fibrillation (ICD-10 - I48.0) 12/29/2024 Encounter for current long-term use of anticoagulants (ICD-10 - Z79.01) Plan Of Treatment Next Appt Details Provider Name:Brody Parikh syd, 04/09/2025 08:15:00 AM, [address] [place] [address], [address], [phone], Provider Name:Brody Parikh syd, 04/16/2025 09:00:00 AM, [address] [place] [address], [address], [phone], Provider Name:Brody Parikh syd, 10/04/2025 08:00:00 AM, [address] [place] [address], [address], [phone], Provider Name:Brody Parikh syd, 10/11/2025 08:30:00 AM, [address] [place] [address], [address], [phone], Progress Notes * JENNIFER, Jayy LDOB:1945 ([age] yo M)Acc No.[id number]:12/29/2024 Progress Note Patient: Jayy ANDRADE Provider: Breezy Goldberg MD :1945 A ge:79 Y S ex:Male Date:12/29/2024 Address:[address] [place], [place] [phone] Subjective: * Chief Complaints: * 1 . [...] Date: 1 Generated for Doron granados/Quang/Pauline on: 12:49 PM EDT
--- OUTSIDE RECORDS SUMMARY | 2024-12-31 10:30 | XMS_ITS ---
Author Organization Brody Goldberg MD Address 10 [facility] [address] [place] [phone] Care Team Providers Care Certified Home Health Aide Name Role Phone Brody Goldberg Primary Care Provider REASON FOR VISIT New Refill Request Medications Medication SIG (Take, Route, Fr equency, Duration) Notes Start Date End Date Status PARoxetine HCl 20 MG TAKE 1 TABLET BY MO UTH EVERY MORNING for 90 Active Encounters Encounter Location Date Provider Diagnosis Brody Goldberg MD 10 [facility] [address] [place] [phone] 12/31/2024 Brody Goldberg Plan Of Treatment Medication Medication Name Sig Start Date Stop Date Notes PARoxetine HCl 20 MG TAKE 1 TABLET BY MO UTH EVERY MORNING for 90 Next Appt Details Provider Name:Brody velarde, 04/09/2025 08:15:00 AM, [address] [place] [address], [address], [phone], Provider Name:Brody velarde, 04/16/2025 09:00:00 AM, [address] [place] [address], [address], [phone], Provider Name:Brody velarde, 10/04/2025 08:00:00 AM, [address] [place] [address], [address], [phone], Provider Name:Brody Samir Parikh ier, 10/11/2025 08:30:00 AM, [address], [address], [place], [place], [phone], Progress Notes * Jayy RODRIGUEZ LDOB:1945 ([age] yo M)Acc No.[id number]:12/31/2024 Patient: Jayy ANDRADE :1945 A ge:79 Y S ex:Male Address:[address] [place] [phone] * Refills Refill PARoxetine HCl Tablet, 20 MG, 90 Tablet, TAKE 1 TABLET BY MOUTH EVERY MORNING, 90, Refills=3 * true * Date: Generated for Doron granados/Quang/Kyitting on: 12:48 PM EDT
--- OUTSIDE RECORDS SUMMARY | 2025-01-12 04:30 | XMS_ITS ---
Author Organization Brody Goldberg MD Address [address] [place] [phone] Care Team Providers Care Axle Inspector Name Role Phone Brody Goldberg Primary Care Provider Results Component Value Reference Range Notes Prothrombin Time INR Reviewed date:01/12/2025 10:51:15 AM Interpretation: Performing Lab:[facility], [address] [place] [phone] Notes/Report: Prothrombin Time 28.6 10.9-12.4 SEC INTERNATIONAL [...] Goldberg MD [address] [place] [phone] 01/12/2025 Brody Goldberg Paroxysmal atrial fibrillation I48.0 and Encounter for current long-term use of anticoagulants Z79.01 Assessments Encounter Date Diagnosis (ICD Code) Assessment Notes Treatment Notes Treatment Clinical Notes Section Notes 01/12/2025 Paroxysmal atrial fibrillation (ICD-10 - I48.0) 01/12/2025 Encounter for current long-term use of anticoagulants (ICD-10 - Z79.01) Plan Of Treatment Next Appt Details Provider Name:Brody Parikh syd, 04/09/2025 08:15:00 AM, [address] [place] [address], [address] [place] [address], [phone], Provider Name:Brody Parikh syd, 04/16/2025 09:00:00 AM, [address] [place] [address], [place] [address], [place], [place], [phone], Provider Name:Brody Parikh syd, 10/04/2025 08:00:00 AM, [address] [place] [address], [address], [phone], Provider Name:Brody Parikh syd, 10/11/2025 08:30:00 AM, [address] [place] [address], [address], [phone], Progress Notes * JENNIFER, Jayy LDOB:1945 ([age] yo M)Acc No.[id number]:01/12/2025 Progress Note Patient: Jayy ANDRADE Provider: Breezy Goldberg MD :1945 A ge:79 Y S ex:Male Date:01/12/2025 Address:[address] [place], [place] [phone] Subjective: * Chief Complaints: * 1 . [...] MD Date: Generated for Doron granados/Quang/Pauline on: 12:50 PM EDT
[2025-01-12 10:45] LABS: INTERNATIONAL NORM RATIO 2.5 (0.9-1.1); Prothrombin Time 28.6 SEC (10.9-12.4)
--- OUTSIDE RECORDS SUMMARY | 2025-01-12 12:49 | XMS_ITS | Clinical Summary ---
Author Organization [facility] Address [address] [phone] Phone Care Team Providers Care Motor Analyst Name Role Phone Brody Goldberg MD Primary [...] file Insurance MEDICARE PART A & B [facility] MEDICARE SUPPLEMENT MEDICARE PART A & B MEDICARE SUPPLEMENT MEDICARE PART A & B MEDICARE SUPPLEMENT MEDICARE PART A & B Member Subscriber Plan / Payer (Ef fective 2012-Present) Name:Jayy Hawk Member ID:[id number] Relation to Subscriber:Self Name:Jayy Hawk Subscriber ID:[id number] Payer ID:[id number] Group ID:Not on file Type:Medicare Address: [employer] [address] MEDICARE SUPPLEMENT MEDICARE PART A & B [facility] MEDICARE SUPPLEMENT MEDICARE PART A & B MEDICARE SUPPLEMENT MEDICARE PART A & B MEDICARE SUPPLEMENT MEDICARE PART A & B MEDICARE SUPPLEMENT MEDICARE PART A & B [id number] [place] [address] MEDICARE SUPPLEMENT Care Teams Motor Analyst Relationship Specialty Start Date End Date Brody Goldberg MD [address] [place] [address] [place] [address] PCP - General Internal Medicine 07/28/20 Additional Source Comments The information contained in this document represents components of the legal health record. It is not the complete legal health record.[facility]
--- OUTSIDE RECORDS SUMMARY | 2025-01-12 12:49 | XMS_ITS | Patient Health Record ---
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 Name Role Phone Brody Goldberg Primary Care Provider Allergies Allergen (clinical drug ingredient) Drug/Non Drug Allergy documented on EMR Reaction Allergy Type Onset Date Status metformin Metformin HCl diarrhea Drug Allergy Act enzo lisinopril Lisinopril couigh Drug Allergy Activ e Results Component Value Reference Range Notes Prothrombin Time INR Reviewed date:01/21/2024 12:49:48 PM Interpretation: Performing Lab:[address] [address] Notes/Report: Prothrombin Time 31.9 10.9-12.4 SEC [employer] [...] INR Reviewed date:02/17/2024 08:32:12 AM Interpretation: Performing Lab:[address] [address] Notes/Report: Prothrombin Time 20.5 10.9-12.4 SEC INTERNATIONAL [...] INR Reviewed date:02/25/2024 12:31:15 PM Interpretation: Performing Lab:[address] [address] Notes/Report: Prothrombin Time 26.0 10.9-12.4 SEC INTERNATIONAL [...] INR Reviewed date:03/12/2024 12:34:57 PM Interpretation: Performing Lab:[facility], [address] [place] [phone] Notes/Report: Prothrombin Time 32.7 10.9-12.4 SEC INTERNATIONAL [...] INR Reviewed date:03/24/2024 12:22:39 PM Interpretation: Performing Lab:[facility], [address] [place] [phone] Notes/Report: Prothrombin Time 25.6 10.9-12.4 SEC INTERNATIONAL [...] Panel Reviewed date:04/02/2024 05:16:30 PM Interpretation: Performing Lab:[address] [address] Notes/Report: Bilirubin Total 0.5 0.0-1.0 mg/dL Bilirubin Direct 0.2 0.0-0.5 mg/dL Aspartate Amino Transferase 24 5-37 U/L Alanine Aminotransferase 18 0-40 U/L Total Protein 7.3 6.5-8.0 g/dL Albumin Level 4.1 3.5-5.0 g/dL Alkaline Phosphatase 65 39-117 U/L Glucose Fasting Reviewed date:04/02/2024 05:15:41 PM Interpretation: Performing Lab:[address] [address] Notes/Report: Glucose Fasting 153 60-99 mg/dL A fasting glucose of 126 mg/dl or greater on more than one occasion is considered diagnostic of diabetes. Lipid Panel with Reflex Reviewed date:04/02/2024 05:16:03 PM Interpretation: Performing Lab:[address] [address] Notes/Report: Triglycerides 196 <150 mg/dL Desirable Triglyceride: [...] A1c Reviewed date:04/02/2024 05:16:13 PM Interpretation: Performing Lab:[address] [address] Notes/Report: Hemoglobin A1c % 7.1 <6.0 % [...] average glucose, using the formula of the Q1G-Xbctynk Average Glucose study (ADAG), Diabetes Care, Vol.31,#8, Oct. 2007 Prothrombin Time INR Reviewed date:04/09/2024 12:14:10 PM Interpretation: Performing Lab:[address] [address] Notes/Report: Prothrombin Time 31.7 10.9-12.4 SEC INTERNATIONAL [...] INR Reviewed date:06/30/2024 11:32:00 AM Interpretation: Performing Lab:[facility], [address] [place] [phone] Notes/Report: Prothrombin Time 35.1 10.9-12.4 SEC INTERNATIONAL [...] INR Reviewed date:07/14/2024 12:30:07 PM Interpretation: Performing Lab:[facility], [address] [place] [phone] Notes/Report: Prothrombin Time 25.2 10.9-12.4 SEC INTERNATIONAL [...] INR Reviewed date:07/28/2024 11:29:24 AM Interpretation: Performing Lab:[facility], [address] [place] [phone] Notes/Report: Prothrombin Time 27.8 10.9-12.4 SEC INTERNATIONAL [...] INR Reviewed date:08/14/2024 07:43:22 AM Interpretation: Performing Lab:[facility], [address] [place] [phone] Notes/Report: Prothrombin Time 21.6 10.9-12.4 SEC INTERNATIONAL [...] INR Reviewed date:08/25/2024 11:30:24 AM Interpretation: Performing Lab:[address] [phone] Notes/Report: Prothrombin Time 25.1 10.9-12.4 SEC INTERNATIONAL [...] INR Reviewed date:09/08/2024 10:54:20 AM Interpretation: Performing Lab:[address] [address] Notes/Report: Prothrombin Time 24.8 10.9-12.4 SEC INTERNATIONAL [...] ff Reviewed date:09/22/2024 12:24:19 PM Interpretation: Performing Lab:[address] [address] Notes/Report: White Blood Count 8.7 4.8-10.8 X10*3/uL [...] C ORRECTED REPORT C ORRECTED REPORT Comprehensive Kayenta. Panel Fa st Reviewed date:09/22/2024 12:50:27 PM Interpretation: Performing Lab:[facility], [address] [place] [phone] Notes/Report: Sodium 141 135-145 mmol/L Potassium 4.1 [...] Panel Reviewed date:09/22/2024 12:24:29 PM Interpretation: Performing Lab:[facility], [address] [place] [phone] Notes/Report: Triglycerides 171 <150 mg/dL Desirable Triglyceride: [...] (Free>4and<10) Reviewed date:09/22/2024 12:23:28 PM Interpretation: Performing Lab:[facility], [address] [place] [phone] Notes/Report: PSA,Total (Free>4and<10) 1.22 0.00-4.00 ng/mL A [...] Random Reviewed date:09/22/2024 12:32:32 PM Interpretation: Performing Lab:[facility], [address] [place] [phone] Notes/Report: Creatinine Urine 102.44 Microalbumin Urine 27.0 Microalbum/Creatinine Ratio Ur 26.3 <30 ug/mg cr Albumin/Creatinine Ratio Reference Ranges: Normal: < 30 ug/mg creatinine Microalbuminuria: 30 - 300 ug/mg creatinine Clinical Albuminuria: > 300 ug/mg creatinine Hemoglobin A1c Reviewed date:09/22/2024 12:32:41 PM Interpretation: Performing Lab:[address] [address] Notes/Report: Hemoglobin A1c % 7.0 <6.0 % [...] average glucose, using the formula of the J5A-Gutcoql Average Glucose study (ADAG), Diabetes Care, Vol.31,#8, Oct. 2007 UA ClnCatch+Micro w/rflx Cul t Reviewed date:09/22/2024 12:46:13 PM Interpretation: Performing Lab:[facility], [address] [place] [phone] Notes/Report: Urine, Clean Catch Color Urine Yellow Appearance Urine Turbid PH 5.5 5.0-9.0 Glucose Urine UA Negative Negative mg/dL Urine Blood Negative Negative Specific Rampart - Urine 1.015 1.005-1.025 Urine Protein Negative Neg-Trace mg/dL Urine Ketones Negative Negative mg/dL Nitrite Urine Negative Negative Leukocyte Esterase Urine Negative Negative RBC Urine 0-2 0-2 /HPF WBC Urine 0-5 0-5 /HPF Squamous Epithelial Cell Urine 0-2 0-2 /HPF Bacteria Urine None Seen None Seen Hyaline Casts Urine 0-2 0-2 /LPF Prothrombin Time INR Reviewed date:10/08/2024 05:01:25 PM Interpretation: Performing Lab:[facility], [address] [place] [phone] Notes/Report: Prothrombin Time 28.8 10.9-12.4 SEC INTERNATIONAL [...] INR Reviewed date:10/20/2024 12:40:33 PM Interpretation: Performing Lab:[facility], [address] [place] [phone] Notes/Report: Prothrombin Time 32.9 10.9-12.4 SEC INTERNATIONAL [...] INR Reviewed date:11/03/2024 12:50:48 PM Interpretation: Performing Lab:[facility], [address] [place] [phone] Notes/Report: Prothrombin Time 31.6 10.9-12.4 SEC INTERNATIONAL [...] INR Reviewed date:11/17/2024 12:36:36 PM Interpretation: Performing Lab:[facility], [address] [place] [phone] Notes/Report: Prothrombin Time 30.7 10.9-12.4 SEC INTERNATIONAL [...] INR Reviewed date:12/01/2024 12:22:34 PM Interpretation: Performing Lab:[facility], [address] [place] [phone] Notes/Report: Prothrombin Time 38.8 10.9-12.4 SEC INTERNATIONAL [...] INR Reviewed date:12/17/2024 12:31:54 PM Interpretation: Performing Lab:[facility], [address] [place] [phone] Notes/Report: Prothrombin Time 31.6 10.9-12.4 SEC INTERNATIONAL [...] INR Reviewed date:12/29/2024 12:34:34 PM Interpretation: Performing Lab:[facility], [address] [place] [phone] Notes/Report: Prothrombin Time 27.0 10.9-12.4 SEC INTERNATIONAL [...] 2.5 - 3.5 Prothrombin Time INR Reviewed date:01/12/2025 10:51:15 AM Interpretation: Performing Lab:[facility], [address] [place] [phone] Notes/Report: Prothrombin Time 28.6 10.9-12.4 SEC INTERNATIONAL [...] Panel Reviewed date:03/17/2024 04:35:59 PM Interpretation: Performing Lab:[facility], [address] [place] [phone] Notes/Report: Triglycerides 207 <150 mg/dL Desirable Triglyceride: [...] A1c Reviewed date:03/15/2024 04:56:43 PM Interpretation: Performing Lab:[facility], [address] [place] [phone] Notes/Report: Hemoglobin A1c % 7.2 <6.0 % [...] average glucose, using the formula of the B6N-Vhwojpa Average Glucose study (ADAG), Diabetes Care, Vol.31,#8, 2007 Glucose, Whole Blood Reviewed date:03/17/2024 04:28:32 PM Interpretation: Performing Lab:[facility], [address] [place] [phone] Notes/Report: Glucose, Whole Blood 170 60-115 mg/dL METER #: [id number] Testing performed in the [facility], [facility]. Hold Red Reviewed date:04/02/2024 05:17:01 PM Interpretation: Performing Lab:[facility], [address] [place] [phone] Notes/Report: Hold Red See Note Specimen held untested for 24 hours; Call to request Chemistry testing. Glucose, Whole Blood Reviewed date:08/11/2024 11:12:03 AM Interpretation: Performing Lab:[facility], [address] [place] [phone] Notes/Report: Glucose, Whole Blood 134 60-115 mg/dL METER #: [id number] Testing performed in the [facility] , [address], [facility]. Complete Blood Count Auto Di ff Reviewed date:09/15/2024 04:47:15 PM Interpretation: Performing Lab:[facility], [address] [place] [phone] Notes/Report: White Blood Count 10.6 4.8-10.8 X10*3/uL [...] INR Reviewed date:09/15/2024 12:34:11 PM Interpretation: Performing Lab:[facility], [address] [place] [phone] Notes/Report: Prothrombin Time 22.1 10.9-12.4 SEC INTERNATIONAL [...] Panel Reviewed date:09/15/2024 12:40:51 PM Interpretation: Performing Lab:[facility], [address] [place] [phone] Notes/Report: Sodium 141 135-145 mmol/L Potassium 4.5 [...] date:09/14/2024 01:32:53 PM Interpretation: Performing Lab: Notes/Report: [address] [address] [address] Scan Report Signed Patient: Kristina Rodriguez MR#: [id number] : 1945 Acct:[id number] Age/Sex: 78 / M ADM Date: 09/13/24 Loc: .ED Attending Dr: Ordering Physician: Liz Levin Date of Service: 09/13/24 Procedure(s): CT cervical spine wo IV con Accession Number(s): [id number] cc: Brody Goldberg MD; Liz Levin Report Number: [id number]: Total DLP = 503.00 mGy-cm CLINICAL HISTORY: [...] in OV> 09/13/241813 DD/ 12 TD/TT: 09/13/241812 Physicist Acoustics: [place] [address] [address] Scan Report Signed Patient: Kristina Rodriguez MR#: [id number] : 1945 Acct:[id number] Age/Sex: 78 / M ADM Date: 09/13/24 Loc: .ED Attending Dr: Ordering Physician: Liz Levin Date of Service: 09/13/24 Procedure(s): CT cervical spine wo IV con Accession Number(s): [id number] cc: Brody Goldberg MD; Liz Levin Report Number: [id number]: Total DLP = 503.00 mGy-cm CLINICAL HISTORY: [...] in OV> 09/13/241813 DD/ 12 TD/TT: 09/13/241812 Physicist Acoustics: CT head/brain wo con Reviewed date:10/08/2024 01:13:57 PM Interpretation:10-08-2024 Performing Lab: Notes/Report: [address] [address] [address] Scan Report Signed Patient: Kristina Rodriguez MR#: [id number] : 1945 Acct:[id number] Age/Sex: 78 / M ADM Date: 09/13/24 Loc: HO.ED Attending Dr: Ordering Physician: Liz Levin Date of Service: 09/13/24 Procedure(s): CT head/brain wo IV con Accession Number(s): [id number] cc: Brody Goldberg MD; Liz Levin Report Number: [id number]: Total DLP = 840.00 mGy-cm CLINICAL HISTORY: [...] in OV> 09/13/241807 DD/ 06 TD/TT: 09/13/241806 Physicist Acoustics: [address] [address] [address] Scan Report Signed Patient: Kristina Rodriguez MR#: [id number] : 1945 Acct:[id number] Age/Sex: 78 / M ADM Date: 09/13/24 Loc: HO.ED Attending Dr: Ordering Physician: Liz Levin Date of Service: 09/13/24 Procedure(s): CT head/brain wo IV con Accession Number(s): [id number] cc: Brody Goldberg MD; Liz Levin Report Number: [id number]: Total DLP = 840.00 mGy-cm CLINICAL HISTORY: [...] in OV> 09/13/241807 DD/ 06 TD/TT: 09/13/241806 Physicist Acoustics: SLIDE REVIEW Reviewed date:09/22/2024 12:30:18 PM Interpretation: Performing Lab:[facility], [address] [place] [phone] Notes/Report: SLIDE REVIEW VERIFIED Reason For Referral No Information Medications Medication SIG (Take, Route, Frequency, Duration) Notes Start Date End Date Status Warfarin Sodium 5 MG ALTERNATING BETWEEN TAKING 1.5 TABLETS BY MOUTH EVERY DAY AND 2 TABLETS EVERY DAY DIRECTED Active PARoxetine HCl 20 MG TAKE 1 TABLET BY [place] UT EVERY MORNING for 90 Active HumaLOG KwikPen 100 UNIT/ML 8 units three times a day Active Pravastatin Sodium 40 MG 1 tablet Orally Once a day Active Lantus SoloStar 100 UNIT/ML 26 units Qpm once a day Acti ve Diprolene AF 0.05 % 1 application [employer] ally Once a day for 30 days [...] day(s) Not-Taking Mupirocin 2 % 1 application [employer] ally Twice a day for 5 day(s) 03/28/2021 Active Ativan 0.5 MG 1 tablet at bedtime as needed Orally Once a day for 30 days 06/21/2011 Not-Taking Jardiance 25 MG 1 tablet Orally [...] Risk Notes Problem Ventricular premature complex (disorder) (790627927) PVC (premature ventricular contraction) (I49.3) Active confirmed Problem 332731717 Thrombocytopenia (D69.6) Active confirmed Problem 419292168 Tubular adenoma (D36.9) Active confirmed Problem 79423250 Nevus (D22.9) Active confirmed Problem Mixed hyperlipidemia (960502599) Mixed hyperlipidemia (E78.2) Active confirmed Problem Paroxysmal atrial fibrillation (201929555) Paroxysmal atrial fibrillation (I48.0) Active confirmed Problem 1720607 Primary insomnia (F51.01) Active confirmed Problem 05238205 Lumbar disc disease (M51.9) Active confirmed Problem 86306913 Essential hypertension (I10) Active confirmed Problem Long-term current use of anticoagulant (496699495) [facility] current use of anticoagulant (Z79.01) Active confirmed Problem Long-term current use of anticoagulant (105558301) long term care administrator current use of anticoagulant therapy (Z79.01) Active confirmed Problem 07955027 Type 2 diabetes mellitus with 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) Active confirmed Problem 156187161 Acute systolic congestive heart failure (I50.21) Active confirmed Problem Pressure injury (morphologic abnormality) (8767914358) Pressure sore (L89.90) Active confirmed Problem Long-term current use of anticoagulant (320144245) Encounter for current long-term use of anticoagulants (Z79.01) Active confirmed Problem 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) Abnormal platelets (D69.1) Active confirmed Problem 006362641 Temporary low platelet count (D69.6) Active confirmed Problem Benign neoplasm of cerebral meninges (59707446) Meningioma (D32.9) Active confirmed Problem 617852467 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 Problem 39221827 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) Active confirmed Problem 68777268864487601 Pressure injur y of sacral region, unstageable (L89.150) Active confirmed Vital Signs Blood pressure diastolic 62 mm Hg 10/08/2024 Height 73.5 in 10/08/2024 Blood pressure systolic 112 mm Hg 10/08/2024 Weight 256 lbs 10/08/2024 BMI 33.31 kg/m2 10/08/2024 Encounters Encounter Location Date Provider Diagnosis Brody Goldberg MD [address] [place] [id number] 01/21/2024 Brody Bombardier Paroxysmal atrial fibrillation I48.0 and long term care administrator current use of anticoagulant Z79.01 Brody Goldberg MD [address] [place] [address] [address] [id number] 02/04/2024 Brody Bombardier Paroxysmal atrial fibrillation I48.0 and [facility] current use of anticoagulant Z79.01 Brody Goldberg MD [address] [place] [id number] 02/25/2024 Brody Bombardier Paroxysmal atrial fibrillation I48.0 and [facility] current use of anticoagulant Z79.01 Brody Goldberg [address] [place] [id number] 03/12/2024 Brody Bombardier Paroxysmal atrial fibrillation I48.0 and [facility] current use of anticoagulant Z79.01 Brody Goldberg MD [address] [place] [address] [address] [id number] 03/24/2024 Brody Bombardier Paroxysmal atrial fibrillation I48.0 and long term care administrator current use of anticoagulant therapy Z79.01 Brody Goldberg MD [address] [facility] [id number] 04/02/2024 Brodydebbi Velaardier Mixed hyperlipidemia E78.2 and 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 Brody Goldberg MD [address] [place] [id number] 04/09/2024 Brody Bombardier Paroxysmal atrial fibrillation I48.0 and Encounter for current long-term use of anticoagulants Z79.01 Brody Goldberg MD [address] [place] [id number] 06/30/2024 Brody Bombardier Paroxysmal atrial fibrillation I48.0 and Encounter for current long-term use of anticoagulants Z79.01 Brody Goldberg MD [address] [place] [id number] 07/14/2024 Brody Bombardier Paroxysmal atrial fibrillation I48.0 and Encounter for current long-term use of anticoagulants Z79.01 Brody Goldberg MD [address] [place] [id number] 07/28/2024 Brody Bombardier Paroxysmal atrial fibrillation I48.0 and Encounter for current long-term use of anticoagulants Z79.01 Brody Goldberg MD [address] [place] [id number] 08/11/2024 Brody Bombardier Paroxysmal atrial fibrillation I48.0 and Encounter for current long-term use of anticoagulants Z79.01 Brody Goldberg MD [address] [place] [address] [id number] 08/25/2024 Brody Bombardier Paroxysmal atrial fibrillation I48.0 and Encounter for current long-term use of anticoagulants Z79.01 Brody Goldberg MD [address] [place] [id number] 09/08/2024 Brody Bombardier Paroxysmal atrial fibrillation I48.0 and Encounter for current long-term use of anticoagulants Z79.01 Brody Goldberg MD [address] [place] [id number] 09/22/2024 Brody Bombardier Mixed hyperlipidemia E78.2 ; 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 ; Thrombocytopenia D69.6 and Acute systolic congestive heart failure I50.21 Brody Goldberg MD [address] [place] [id number] 10/08/2024 Brody Bombardier Paroxysmal atrial fibrillation I48.0 and Encounter for current long-term use of anticoagulants Z79.01 Brody Goldberg MD [address] [place] [id number] 10/20/2024 Brody Bombardier Paroxysmal atrial fibrillation I48.0 and Encounter for current long-term use of anticoagulants Z79.01 Brody Goldberg MD [address] [place] [address] [id number] 11/03/2024 Brody Goldberg Encounter for curren t long-term use of anticoagulants Z79.01 and Paroxysmal atrial fibrillation I48.0 Brody Goldberg MD [address] [place] [address] [id number] 11/17/2024 Brody Bombardier Paroxysmal atrial fibrillation I48.0 ; Encounter for administration of vaccine Z23 and long term care administrator current use of anticoagulant therapy Z79.01 Brody Goldberg MD [address] [place] [address] [id number] 12/01/2024 Brody Bombardier Paroxysmal atrial fibrillation I48.0 and Encounter for current long-term use of anticoagulants Z79.01 Brody Goldberg MD [address] [place] [address] [id number] 12/17/2024 Brody Bombardier Paroxysmal atrial fibrillation I48.0 and Encounter for current long-term use of anticoagulants Z79.01 Brody Goldberg MD [address] [id number] 12/29/2024 Brody Bombardier Paroxysmal atrial fibrillation I48.0 and Encounter for current long-term use of anticoagulants Z79.01 Brody Goldberg MD [address] [id number] 01/12/2025 Brody Bombardier Paroxysmal atrial fibrillation I48.0 and Encounter for current long-term use of anticoagulants Z79.01 Brody Goldberg MD [address] [place] [id number] 04/09/2024 Brody Bombardier Paroxysmal atrial fibrillation I48.0 ; 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 ; Pressure injury of sacral region, 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 and Mixed hyperlipidemia E78.2 Brody Goldberg MD [address] [place] [id number] 10/08/2024 Brody Bombardier Meningioma D32.9 ; Paroxysmal atrial fibrillation I48.0 ; 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 ; PVC (premature ventricular contraction) I49.3 ; Essential hypertension I10 ; Mixed hyperlipidemia E78.2 and Acute systolic congestive heart failure I50.21 Brody Goldberg MD [address] [place] [address] [id number] 03/24/2024 Brody Goldberg Pressure sore L89.90 Brody Goldberg MD [address] [place] [address] [id number] 06/18/2024 Brody Goldberg MD [address] [place] [address] [id number] 09/14/2024 Brody Goldberg MD [address] [place] [address] [id number] 02/25/2024 Brody Goldberg MD [address] [place] [address] [id number] 06/05/2024 Brody Goldberg MD [address] [id number] 12/15/2024 Brody Goldberg MD [address] [place] [address] [id number] 12/31/2024 Brody Goldberg Assessments Encounter Date Diagnosis (ICD Code) Assessment Notes Treatment Notes Treatment Clinical Notes Section Notes 01/21/2024 Paroxysmal atrial fibrillation (ICD-10 - I48.0) 01/21/2024 [facility] current use of anticoagulant (ICD-10 - Z79.01) 02/04/2024 Paroxysmal atrial fibrillation (ICD-10 - I48.0) 02/04/2024 [facility] current use of anticoagulant (ICD-10 - Z79.01) 02/25/2024 Paroxysmal atrial fibrillation (ICD-10 - I48.0) 02/25/2024 [facility] current use of anticoagulant (ICD-10 - Z79.01) 03/12/2024 Paroxysmal atrial fibrillation (ICD-10 - I48.0) 03/12/2024 [facility] current use of anticoagulant (ICD-10 - Z79.01) 03/24/2024 Paroxysmal atrial fibrillation (ICD-10 - I48.0) 03/24/2024 [facility] current use of anticoagulant therapy (ICD-10 [...] 12/29/2024 Paroxysmal atrial fibrillation (ICD-10 - I48.0) 01/12/2025 Paroxysmal atrial fibrillation (ICD-10 - I48.0) 04/09/2024 Paroxysmal atrial fibrillation (ICD-10 - I48.0) [...] last note from dr hernandez neurosurgery at [facility] 10/08/2024 Paroxysmal atrial fibrillation (ICD-10 - I48.0) [...] Paroxysmal atrial fibrillation (ICD-10 - I48.0) 11/17/2024 long term care administrator current use of anticoagulant therapy (ICD-10 - Z79.01) 12/01/2024 Encounter for current long-term use of anticoagulants (ICD-10 - Z79.01) 12/17/2024 Encounter for current long-term use of anticoagulants (ICD-10 - Z79.01) 12/29/2024 Encounter for current long-term use of anticoagulants (ICD-10 - Z79.01) 01/12/2025 Encounter for current long-term use of [...] I49.3) had monitor recently. have him call dental officer to get results 09/22/2024 Acute systolic congestive [...] W&WO CONTRAST 12/08/2012 Next Appt Details Provider Name:Brodydebbi velarde, 04/09/2025 08:15:00 AM, [address] [place] [address], [address], [phone], Provider Name:Brody reyesr, 04/16/2025 09:00:00 AM, [address] [place] [address], [address], [phone], Provider Name:Brody Samir Kati reyesr, 10/04/2025 08:00:00 AM, [address] [place] [address], [address], [phone], Provider Name:Brody Samir Parikh ericr, 10/11/2025 08:30:00 AM, [address] [place] [address], [address], [phone], Insurance Providers Payer Name Payer Address Payer Phone Subscriber Number Group Number Insured Name Patient Relationship to Insured Coverage Start Date Coverage End Date MEDICARE NHIC [address] [place] [address] [id number] Kristina Rodriguez Self - patient is the insured 3 [employer] [place] [address] [place] [phone] [id number] Kristina Rodriguez Self - patient is the [...]
--- OUTSIDE RECORDS SUMMARY | 2025-01-12 12:49 | XMS_ITS | Patient Health Record ---
Author Organization [facility] Address [address] [place] [address] Care Team Providers Care Buckram Sewer Name Role Phone Brody Goldberg MD Primary Care Provider Armando Hunt Unavailable [phone] Reason For Referral No Information Medications Medication [...] Status W/U Status Risk Notes Problem Diarrhea (69025523) Diarrhea (787.91) Active confirmed Problem Change in bowel habit (28547076) Change in bowel habits (787.99) Active confirmed Problem History of adenomatous polyp of colon (313315260) History of adenomatous polyp of colon (V12.72) Active confirmed Problem Weight loss (737690393) Weight loss (783.21) Active confirmed Plan Of Treatment Future Test Test Name Order Date COLONOSCOPY 09/03/2013 Insurance Providers Payer Name Payer Address Payer Phone Subscriber Number Group Number Insured Name Patient Relationship to Insured Coverage Start Date Coverage End Date MEDICARE OF [place] [address] [place] [address] [id number] KEYSHA RODRIGUEZ Self - patient is the insured [facility] [address] [place] [address] [id number] KEYSHA RODRIGUEZ Self - patient is the insured Medical (General) History Medical History History ICD Code NIDDM hypertension Denies OK,CVA,Lung disease,renal disease Atrial fib Anxiety On Finasteride [...]
== END 2025-01-12 08:31 | disposition home or self-care (01) ==
LOC: HO.LNP 08:30
PROVIDERS: Visit Provider Internal Medicine
DX: I48.0 Paroxysmal atrial fibrillation (principal); Z79.01 Long term (current) use of anticoagulants
CPT/HCPCS: 85610

== ENCOUNTER 2025-02-02 11:14 | Outpatient (REF) | payer MEDICARE, SELFPAY ==
[2025-02-02 11:27] LABS: INTERNATIONAL NORM RATIO 3.0 (0.9-1.1); Prothrombin Time 36.2 SEC (11.2-13.5)
== END 2025-02-02 11:15 | disposition home or self-care (01) ==
LOC: HO.LNP 11:14
PROVIDERS: Visit Provider Internal Medicine
DX: I48.0 Paroxysmal atrial fibrillation (principal); Z79.01 Long term (current) use of anticoagulants
CPT/HCPCS: 85610

== ENCOUNTER 2025-02-18 10:54 | Outpatient (REF) | payer MEDICARE, SELFPAY ==
--- OUTSIDE RECORDS SUMMARY | 2020-07-28 10:05 | XMS_ITS | Encounter Summary ---
Author Organization [facility] Address [address] [facility] [address] [place] [address] Phone Care Team Providers Care Pediatric Audiologist Name Role Phone Brody Goldberg MD Primary Care Provider Encounter Details Date Type Department Care Team (Late st Contact Info) Description 07/28/2020 11:05 AM EDT Hospital Encounter [facility] [address] [place] [phone] Luis Manuel Cabello PA [address] [place] [phone] [email or web address] g Social History Tobacco Use Types Packs/Day [...] on filedocumented in this encounter Care Teams Pediatric Audiologist Relationship Specialty Start Date End Date Brody Goldberg MD [address] [place] [address] [place] [address] PCP - General Internal Medicine 07/28/20 documented as of this encounter Additional Source Comments The information contained in this document represents components of the legal health record. It is not the complete legal health record.[facility]
--- OUTSIDE RECORDS SUMMARY | 2024-11-17 04:45 | XMS_ITS ---
Author Organization Brody Goldberg MD Address [address] [place] [phone] Care Team Providers Care Book Jacket Cover Machine Operator Name Role Phone Brody Goldberg Primary Care Provider [phone] Results Component Value Reference Range Notes Prothrombin Time INR Reviewed date:11/17/2024 12:36:36 PM Interpretation: Performing Lab:[facility], [address] [place] [phone] Notes/Report: Prothrombin Time 30.7 10.9-12.4 SEC INTERNATIONAL NORM RATIO 2.7 0.9-1.1 [...] 2.5 - 3.5 REASON FOR VISIT INR Immunizations Vaccine Route Administration Date Status Comme nts Influenza High Dose IM Intramuscular 11/17/2024 Administer ed Encounters Encounter Location Date Provider Diagnosis Brody Goldberg MD [address] [place] [phone] 11/17/2024 Brody Goldberg Paroxysmal atrial fibrillation I48.0 ; Encounter for administration of vaccine Z23 and FDC current use of anticoagulant therapy Z79.01 Assessments Encounter Date Diagnosis (ICD Code) Assessment Notes Treatment Notes Treatment Clinical Notes Section Notes 11/17/2024 Paroxysmal atrial fibrillation (ICD-10 - I48.0) 11/17/2024 Encounter for administration of vaccine (ICD-10 - Z23) 11/17/2024 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-10 - Z79.01) Plan Of Treatment Next Appt Details Provider Name:Brody reyesr, 04/09/2025 08:15:00 AM, [address] [place] [address], [address] [place] [address], [phone], Provider Name:Brody reyesr, 04/16/2025 09:00:00 AM, [address] [place] [address], [address], [phone], Provider Name:Brody reyesr, 10/04/2025 08:00:00 AM, [address] [place] [address], [address], [phone], Provider Name:Brody Samir Kati reyesr, 10/11/2025 08:30:00 AM, [address] [place] [address], [address], [phone], Progress Notes * Jayy RODRIGUEZ LDOB:1945 ([age] yo M)Acc No.[id number]:11/17/2024 Progress Note Patient: aJyy ANDRADE Provider: Breezy Goldberg MD :1945 A ge:79 Y S ex:Male Date:11/17/2024 Address:[address] [place], [place] [phone] Subjective: * Chief Complaints: * 1 . INR. * Medical History: Objective: * Vitals: Assessment: * Assessment: 1. E ncounter for administration of vaccine - Z23 (Primary) 2 . P aroxysmal atrial fibrillation - I48.0 3 . L cleo term current use of anticoagulant therapy - Z79.01 Plan: * Treatment: 2. L cleo term current use of anticoagulant therapy L AB: Prothrombin Time INR (Collection Date & Time - 11/17/2024 09:45 AM) * Immunizations: Influenza High Dose : 0.5 mL (Dose No:1) (Route: Intramuscular) given by Sabina Morfin , Office Staff on Left Deltoid * Procedure Codes: 3 6415 VENIPUNCT, ROUTINE*, 36941 FLU VACC PRSV FREE INC ANTIG, 24436 VENIPUNCT, ROUTINE*, G0008 ADMN FLU VAC NO FEE SCHED SAME DAY * * The named appointment provid er may or may not be the originator of this progress note, and it is not deemed complete until electronically signed by the appointment provider. Sign off status: Pending * Provider: Breezy Goldberg MD Date: 0 11/17/2024 Generated for Doron granados/Quang/Pauline on: 04/21/2024 01:46 PM EST
--- OUTSIDE RECORDS SUMMARY | 2024-12-01 03:45 | XMS_ITS ---
Author Organization Brody Goldberg MD Address [address] [place] [phone] Care Team Providers Care Industrial Maintenance Repairer Name Role Phone Brody Goldberg Primary Care Provider [phone] Results Component Value Reference Range Notes Prothrombin Time INR Reviewed date:12/01/2024 12:22:34 PM Interpretation: Performing Lab:[facility], [address] [place] [phone] Notes/Report: Prothrombin Time 38.8 10.9-12.4 SEC INTERNATIONAL [...] Goldberg MD [address] [place] [phone] 12/01/2024 Brody Goldberg Paroxysmal atrial fibrillation I48.0 and Encounter for current long-term use of anticoagulants Z79.01 Assessments Encounter Date Diagnosis (ICD Code) Assessment Notes Treatment Notes Treatment Clinical Notes Section Notes 12/01/2024 Paroxysmal atrial fibrillation (ICD-10 - I48.0) 12/01/2024 Encounter for current long-term use of anticoagulants (ICD-10 - Z79.01) Plan Of Treatment Next Appt Details Provider Name:Brody Parikh syd, 04/09/2025 08:15:00 AM, [address] [place] [address], [address] [place] [address], [phone], Provider Name:Brody Parikh syd, 04/16/2025 09:00:00 AM, [address] [place] [address], [place] [address], [place], [place], [phone], Provider Name:Brody Parikh syd, 10/04/2025 08:00:00 AM, [address] [place] [address], [address], [phone], Provider Name:Brody Parikh syd, 10/11/2025 08:30:00 AM, [address] [place] [address], [address], [phone], Progress Notes * JENNIFER, Jayy LDOB:1945 ([age] yo M)Acc No.[id number]:12/01/2024 Progress Note Patient: Jayy ANDRADE Provider: Breezy Goldberg MD :1945 A ge:79 Y S ex:Male Date:12/01/2024 Address:[address] [place], [place] [phone] Subjective: * Chief Complaints: * 1 . [...] 0 12/01/2024 Generated for Doron Paulino/Pauline on: 04/21/2024 01:46 PM EST
--- OUTSIDE RECORDS SUMMARY | 2024-12-15 02:03 | XMS_ITS ---
Author Organization Brody Goldberg MD Address 10 [facility] [address] [place] [address] [phone] Care Team Providers Care Solution Make Up Operator Name Role Phone Brody Goldberg Primary Care Provider REASON FOR VISIT Yovanny Rodriguez PT-INR Encounters Encounter Location Date Provider Diagnosis Brody Goldberg MD [address] [place] [address] [place] [address] [phone] 12/15/2024 Brody Goldberg Plan Of Treatment Next Appt Details Provider Name:Brody velarde, 04/09/2025 08:15:00 AM, [address] [place] [address], [address], [phone], Provider Name:Brody velarde, 04/16/2025 09:00:00 AM, [address] [place] [address], [address], [phone], Provider Name:Brody velarde, 10/04/2025 08:00:00 AM, [address] [place] [address], [address], [phone], Provider Name:Brody velarde, 10/11/2025 08:30:00 AM, [address] [place] [address], [address], [phone], Progress Notes * Jayy RODRIGUEZ LDOB:1945 ([age] yo M)Acc No.[id number]:12/15/2024 Patient: Jayy ANDRADE :1945 A ge:79 Y S ex:Male Address:[address] [place] [address] * true * Date: Generated for Doron granados/Quang/Yismitting on: 04/21/2024 01:48 PM EST
--- OUTSIDE RECORDS SUMMARY | 2024-12-17 04:15 | XMS_ITS ---
Author Organization Brody Goldberg MD Address [address] [place] [address] [phone] Care Team Providers Care Distribution Dispatcher Name Role Phone Brody Goldberg Primary Care Provider Results Component Value Reference Range Notes Prothrombin Time INR Reviewed date:12/17/2024 12:31:54 PM Interpretation: Performing Lab:[facility], [address] [place] [phone] Notes/Report: Prothrombin Time 31.6 10.9-12.4 SEC INTERNATIONAL [...] Goldberg MD [address] [place] [address] [phone] 12/17/2024 Brody Goldberg Paroxysmal atrial fibrillation I48.0 and Encounter for current long-term use of anticoagulants Z79.01 Assessments Encounter Date Diagnosis (ICD Code) Assessment Notes Treatment Notes Treatment Clinical Notes Section Notes 12/17/2024 Paroxysmal atrial fibrillation (ICD-10 - I48.0) 12/17/2024 Encounter for current long-term use of anticoagulants (ICD-10 - Z79.01) Plan Of Treatment Next Appt Details Provider Name:Brody Parikh syd, 04/09/2025 08:15:00 AM, [address] [place] [address], [address], [phone], Provider Name:Brody Parikh syd, 04/16/2025 09:00:00 AM, [address] [place] [address], [address], [phone], Provider Name:Brody Parikh syd, 10/04/2025 08:00:00 AM, [address] [place] [address], [address], [phone], Provider Name:Brody Parikh syd, 10/11/2025 08:30:00 AM, [address] [place] [address], [address], [phone], Progress Notes * JENNIFER, Jayy LDOB:1945 ([age] yo M)Acc No.[id number]:12/17/2024 Progress Note Patient: Jayy ANDRADE Provider: Breezy Goldberg MD :1945 A ge:79 Y S ex:Male Date:12/17/2024 Address:[address] [place], [place] [phone] Subjective: * Chief Complaints: * 1 . [...] Date: 1 Generated for Doron Paulino/Pauline on: 04/21/2024 01:45 PM EST
--- OUTSIDE RECORDS SUMMARY | 2024-12-29 03:15 | XMS_ITS ---
Author Organization Brody Goldberg MD Address [address] [place] [phone] Care Team Providers Care Home Appliances Mechanic Name Role Phone Brody Goldberg Primary Care Provider Results Component Value Reference Range Notes Prothrombin Time INR Reviewed date:12/29/2024 12:34:34 PM Interpretation: Performing Lab:[facility], [address] [place] [phone] Notes/Report: Prothrombin Time 27.0 10.9-12.4 SEC INTERNATIONAL [...] Goldberg MD [address] [place] [phone] 12/29/2024 Brody Goldberg Paroxysmal atrial fibrillation I48.0 and Encounter for current long-term use of anticoagulants Z79.01 Assessments Encounter Date Diagnosis (ICD Code) Assessment Notes Treatment Notes Treatment Clinical Notes Section Notes 12/29/2024 Paroxysmal atrial fibrillation (ICD-10 - I48.0) 12/29/2024 Encounter for current long-term use of anticoagulants (ICD-10 - Z79.01) Plan Of Treatment Next Appt Details Provider Name:Brody Parikh syd, 04/09/2025 08:15:00 AM, [address] [place] [address], [address], [phone], Provider Name:Brody Parikh syd, 04/16/2025 09:00:00 AM, [address] [place] [address], [address], [phone], Provider Name:Brody Parikh syd, 10/04/2025 08:00:00 AM, [address] [place] [address], [address], [phone], Provider Name:Brody Parikh syd, 10/11/2025 08:30:00 AM, [address] [place] [address], [address], [phone], Progress Notes * JENNIFER, Jayy LDOB:1945 ([age] yo M)Acc No.[id number]:12/29/2024 Progress Note Patient: Jayy ANDRADE Provider: Breezy Goldberg MD :1945 A ge:79 Y S ex:Male Date:12/29/2024 Address:[address] [place], [place] [phone] Subjective: * Chief Complaints: * 1 . [...] 1 Generated for Doron Paulino/Pauline on: 04/21/2024 01:48 PM EST
--- OUTSIDE RECORDS SUMMARY | 2024-12-31 09:30 | XMS_ITS ---
Author Organization Brody Goldberg MD Address 10 [facility] [address] [place] [phone] Care Team Providers Care Elevated Work Platform Operator Name Role Phone Brody Goldberg Primary Care Provider REASON FOR VISIT New Refill Request Medications Medication SIG (Take, Route, Fr equency, Duration) Notes Start Date End Date Status PARoxetine HCl 20 MG TAKE 1 TABLET BY MO UTH EVERY MORNING for 90 Active Encounters Encounter Location Date Provider Diagnosis Brody Goldberg MD 10 [facility] [address] [place] [phone] 12/31/2024 Brody Goldberg Plan Of Treatment Medication Medication Name Sig Start Date Stop Date Notes PARoxetine HCl 20 MG TAKE 1 TABLET BY MO UTH EVERY MORNING for 90 Next Appt Details Provider Name:Brody velarde, 04/09/2025 08:15:00 AM, [address] [place] [address], [address], [phone], Provider Name:Brody velarde, 04/16/2025 09:00:00 AM, [address] [place] [address], [address], [phone], Provider Name:Brody velarde, 10/04/2025 08:00:00 AM, [address] [place] [address], [address], [phone], Provider Name:Brody Samir Parikh ier, 10/11/2025 08:30:00 AM, [address], [address], [place], [place], [phone], Progress Notes * Jayy RODRIGUEZ LDOB:1945 ([age] yo M)Acc No.[id number]:12/31/2024 Patient: Jayy ANDRADE :1945 A ge:79 Y S ex:Male Address:[address] [place] [address] * Refills Refill PARoxetine HCl Tablet, 20 MG, 90 Tablet, TAKE 1 TABLET BY MOUTH EVERY MORNING, 90, Refills=3 * true * Date: Generated for Doron granados/Quang/Kyitting on: 04/21/2024 01:46 PM EST
--- OUTSIDE RECORDS SUMMARY | 2025-01-12 03:30 | XMS_ITS ---
Author Organization Brody Goldberg MD Address [address] [place] [phone] Care Team Providers Care Hunting Sales Associate Name Role Phone Brody Goldberg Primary Care Provider Results Component Value Reference Range Notes Prothrombin Time INR Reviewed date:01/12/2025 10:51:15 AM Interpretation: Performing Lab:[facility], [address] [place] [phone] Notes/Report: Prothrombin Time 28.6 10.9-12.4 SEC INTERNATIONAL NORM RATIO 2.5 0.9-1.1 [...] Goldberg MD [address] [place] [phone] 01/12/2025 Brody Goldberg Paroxysmal atrial fibrillation I48.0 and Encounter for current long-term use of anticoagulants Z79.01 Assessments Encounter Date Diagnosis (ICD Code) Assessment Notes Treatment Notes Treatment Clinical Notes Section Notes 01/12/2025 Paroxysmal atrial fibrillation (ICD-10 - I48.0) 01/12/2025 Encounter for current long-term use of anticoagulants (ICD-10 - Z79.01) Plan Of Treatment Next Appt Details Provider Name:Brody Parikh syd, 04/09/2025 08:15:00 AM, [address] [place] [address], [address] [place] [address], [phone], Provider Name:Brody Parikh ysd, 04/16/2025 09:00:00 AM, [address] [place] [address], [place] [address], [place], [place], [phone], Provider Name:Brody Parikh syd, 10/04/2025 08:00:00 AM, [address] [place] [address], [address], [phone], Provider Name:Brody Parikh syd, 10/11/2025 08:30:00 AM, [address] [place] [address], [address], [phone], Progress Notes * JENNIFER, Jayy LDOB:1945 ([age] yo M)Acc No.[id number]:01/12/2025 Progress Note Patient: Jayy ANDRADE Provider: Breezy Goldberg MD :1945 A ge:79 Y S ex:Male Date:01/12/2025 Address:[address] [place], [place] [phone] Subjective: * Chief Complaints: * 1 . INR. * Medical History: Objective: * Vitals: Assessment: * Assessment: 1. P aroxysmal atrial fibrillation - I48.0 (Primary) 2 . E ncounter for current long-term use of anticoagulants - Z79.01 Plan: * Treatment: 2. E ncounter for current long-term use of anticoagulants L AB: Prothrombin Time INR (Collection Date & Time - 01/12/2025 08:30 AM) * Procedure Codes: 3 6415 VENIPUNCT, [...]
--- OUTSIDE RECORDS SUMMARY | 2025-02-02 04:00 | XMS_ITS ---
Author Organization Brody Goldberg MD Address [address] [place] [phone] Care Team Providers Care Thread Spinner Name Role Phone Brody Goldberg Primary Care Provider [phone] Results Component Value Reference Range Notes Prothrombin Time INR Reviewed date:02/02/2025 12:41:44 PM Interpretation: Performing Lab:[facility], [address] [place] [phone] Notes/Report: Prothrombin Time 36.2 11.2-13.5 SEC INTERNATIONAL NORM RATIO 3.0 0.9-1.1 INTERNATIONAL [...] Encounters Encounter Location Date Provider Diagnosis Brody Goldbreg MD [address] [place] [phone] 02/02/2025 Brody Goldberg Paroxysmal atrial fibrillation I48.0 and Encounter for current long-term use of anticoagulants Z79.01 Assessments Encounter Date Diagnosis (ICD Code) Assessment Notes Treatment Notes Treatment Clinical Notes Section Notes 02/02/2025 Paroxysmal atrial fibrillation (ICD-10 - I48.0) 02/02/2025 Encounter for current long-term use of anticoagulants (ICD-10 - Z79.01) Plan Of Treatment Next Appt Details Provider Name:Brody Parikh syd, 04/09/2025 08:15:00 AM, [address] [place] [address], [address] [place] [address], [phone], Provider Name:Brody Parikh syd, 04/16/2025 09:00:00 AM, [address] [place] [address], [address], [phone], Provider Name:Brody Parikh syd, 10/04/2025 08:00:00 AM, [address] [place] [address], [address], [phone], Provider Name:Brody Parikh syd, 10/11/2025 08:30:00 AM, [address] [place] [address], [address], [phone], Progress Notes * JENNIFER Jayy LDOB:1945 ([age] yo M)Acc No.[id number]:02/02/2025 Progress Note Patient: Jayy ANDRADE Provider: Breezy Goldberg MD :1945 A ge:79 Y S ex:Male Date:02/02/2025 Address:[address] [place], [place] [phone] Subjective: * Chief Complaints: * 1 . INR. * Medical History: Objective: * Vitals: Assessment: * Assessment: 1. P aroxysmal atrial fibrillation - I48.0 (Primary) 2 . E ncounter for current long-term use of anticoagulants - Z79.01 Plan: * Treatment: 2. E ncounter for current long-term use of anticoagulants L AB: Prothrombin Time INR (Collection Date & Time - 02/02/2025 09:00 AM) * Procedure Codes: 3 6415 VENIPUNCT, ROUTINE* * * The named appointment provid er may or may not be the originator of this progress note, and it is not deemed complete until electronically signed by the appointment provider. Sign off status: Pending * Provider: Breezy Goldberg MD Date: 04/04/2024 Generated for Doron Paulino/Pauline on: 04/21/2024 01:48 PM EST
--- OUTSIDE RECORDS SUMMARY | 2025-02-18 03:45 | XMS_ITS ---
Author Organization Brody Goldberg MD Address [address] [place] [phone] Care Team Providers Care Order Manager Name Role Phone Brody Goldberg Primary Care Provider [phone] Results Component Value Reference Range Notes Prothrombin Time INR Reviewed date:02/18/2025 12:27:45 PM Interpretation: Performing Lab:[facility], [address] [place] [phone] Notes/Report: Prothrombin Time 40.8 11.2-13.5 SEC INTERNATIONAL [...] Goldberg MD [address] [place] [phone] 02/18/2025 Brody Goldberg skilled nursing current us e of anticoagulant Z79.01 and Paroxysmal atrial fibrillation I48.0 Assessments Encounter Date Diagnosis (ICD Code) Assessment Notes Treatment Notes Treatment Clinical Notes Section Notes 02/18/2025 skilled nursing current use of anticoagulant (ICD-10 - Z79.01) 02/18/2025 Paroxysmal atrial fibrillation (ICD-10 - I48.0) Plan Of Treatment Next Appt Details Provider Name:Brody Parikh syd, 04/09/2025 08:15:00 AM, [address] [place] [address], Suite [facility], [place], [place], [phone], Provider Name:Brody Parikh syd, 04/16/2025 09:00:00 AM, [address] [place] [address], [place] [address], [place], [place], [phone], Provider Name:Brody Parikh syd, 10/04/2025 08:00:00 AM, [address] [place] [address], [place] [address], [place], [place], [phone], Provider Name:Brody Parikh syd, 10/11/2025 08:30:00 AM, [address] [place] [address], [address], [phone], Progress Notes * JENNIFER Jayy LDOB:1945 ([age] yo M)Acc No.[id number]:02/18/2025 Progress Note Patient: Jayy ANDRADE Provider: Breezy Goldberg MD :1945 A ge:79 Y S ex:Male Date:02/18/2025 Address:[address] [place] [address] Subjective: * Chief Complaints: * 1 . [...] 1 04/21/2024 Generated for Doron granados/Quang/Pauline on: 04/21/2024 01:48 PM EST
[2025-02-18 11:46] LABS: INTERNATIONAL NORM RATIO 3.4 (0.9-1.1); Prothrombin Time 40.8 SEC (11.2-13.5)
--- OUTSIDE RECORDS SUMMARY | 2025-02-18 13:47 | XMS_ITS | Patient Health Record ---
Author Organization Brody Goldberg MD Address [address] [place], [place] [id number] Care Team Providers Care Sample Builder Name Role Phone Brody Goldberg Primary Care Provider Allergies Allergen (clinical drug ingredient) Drug/Non Drug Allergy documented on EMR Reaction Allergy Type Onset Date Status metformin Metformin HCl diarrhea Drug Allergy Act enzo lisinopril Lisinopril couigh Drug Allergy Activ e Results Component Value Reference Range Notes Prothrombin Time INR Reviewed date:02/25/2024 12:31:15 PM Interpretation: Performing Lab:[address] [phone] Notes/Report: Prothrombin Time 26.0 10.9-12.4 [employer] [...] INR Reviewed date:03/12/2024 12:34:57 PM Interpretation: Performing Lab:[address] [phone] Notes/Report: Prothrombin Time 32.7 10.9-12.4 SEC [employer]NATIONAL [...] INR Reviewed date:03/24/2024 12:22:39 PM Interpretation: Performing Lab:[address] [address] Notes/Report: Prothrombin Time 25.6 10.9-12.4 SEC [employer]NATIONAL [...] Panel Reviewed date:04/02/2024 05:16:30 PM Interpretation: Performing Lab:[facility], [address] [place] [phone] Notes/Report: Bilirubin Total 0.5 0.0-1.0 mg/dL Bilirubin Direct 0.2 0.0-0.5 mg/dL Aspartate Amino Transferase 24 5-37 U/L Alanine Aminotransferase 18 0-40 U/L Total Protein 7.3 6.5-8.0 g/dL Albumin Level 4.1 3.5-5.0 g/dL Alkaline Phosphatase 65 39-117 U/L Glucose Fasting Reviewed date:04/02/2024 05:15:41 PM Interpretation: Performing Lab:[facility], [address] [place] [phone] Notes/Report: Glucose Fasting 153 60-99 mg/dL A fasting glucose of 126 mg/dl or greater on more than one occasion is considered diagnostic of diabetes. Lipid Panel with Reflex Reviewed date:04/02/2024 05:16:03 PM Interpretation: Performing Lab:[facility], [address] [place] [phone] Notes/Report: Triglycerides 196 <150 mg/dL Desirable Triglyceride: [...] A1c Reviewed date:04/02/2024 05:16:13 PM Interpretation: Performing Lab:[facility], [address] [place] [phone] Notes/Report: Hemoglobin A1c % 7.1 <6.0 % [...] average glucose, using the formula of the N6H-Naxdnux Average Glucose study (ADAG), Diabetes Care, Vol.31,#8, 2007 Prothrombin Time INR Reviewed date:04/09/2024 12:14:10 PM Interpretation: Performing Lab:[facility], [address] [place] [phone] Notes/Report: Prothrombin Time 31.7 10.9-12.4 SEC [employer]NATIONAL [...] 11:32:00 AM Interpretation: Performing Lab:[facility], [address] [place] [phone] Notes/Report: Prothrombin Time 35.1 10.9-12.4 SEC [employer]NATIONAL [...] 12:30:07 PM Interpretation: Performing Lab:[facility], [address] [place] [phone] Notes/Report: Prothrombin Time 25.2 10.9-12.4 SEC [employer]NATIONAL [...] 11:29:24 AM Interpretation: Performing Lab:[facility], [address] [place] [phone] Notes/Report: Prothrombin Time 27.8 10.9-12.4 SEC [employer]NATIONAL [...] 07:43:22 AM Interpretation: Performing Lab:[facility], [address] [place] [phone] Notes/Report: Prothrombin Time 21.6 10.9-12.4 SEC INTERNATIONAL [...] INR Reviewed date:08/25/2024 11:30:24 AM Interpretation: Performing Lab:[facility], [address] [place] [phone] Notes/Report: Prothrombin Time 25.1 10.9-12.4 SEC INTERNATIONAL [...] INR Reviewed date:09/08/2024 10:54:20 AM Interpretation: Performing Lab:[facility], [address] [place] [phone] Notes/Report: Prothrombin Time 24.8 10.9-12.4 SEC INTERNATIONAL [...] ff Reviewed date:09/22/2024 12:24:19 PM Interpretation: Performing Lab:[facility], [address] [place] [phone] Notes/Report: White Blood Count 8.7 4.8-10.8 X10*3/uL [...] C ORRECTED REPORT C ORRECTED REPORT Comprehensive [facility]. Panel Fa st Reviewed date:09/22/2024 12:50:27 PM Interpretation: Performing Lab:[facility], [address] [place] [phone] Notes/Report: Sodium 141 135-145 mmol/L Potassium 4.1 [...] 12:24:29 PM Interpretation: Performing Lab:[facility], [address] [place] [phone] Notes/Report: Triglycerides 171 <150 mg/dL Desirable Triglyceride: [...] (Free>4and<10) Reviewed date:09/22/2024 12:23:28 PM Interpretation: Performing Lab:[address] [phone] Notes/Report: PSA,Total (Free>4and<10) 1.22 0.00-4.00 ng/mL A [...] Random Reviewed date:09/22/2024 12:32:32 PM Interpretation: Performing Lab:[address] [address] Notes/Report: Creatinine Urine 102.44 Microalbumin Urine 27.0 Microalbum/Creatinine Ratio Ur 26.3 <30 ug/mg cr Albumin/Creatinine Ratio Reference Ranges: Normal: < 30 ug/mg creatinine Microalbuminuria: 30 - 300 ug/mg creatinine Clinical Albuminuria: > 300 ug/mg creatinine Hemoglobin A1c Reviewed date:09/22/2024 12:32:41 PM Interpretation: Performing Lab:[address] [phone] Notes/Report: Hemoglobin A1c % 7.0 <6.0 % [...] average glucose, using the formula of the Y4H-Pquingi Average Glucose study (ADAG), Diabetes Care, Vol.31,#8, Oct. 2007 UA ClnCatch+Micro w/rflx Cul t Reviewed date:09/22/2024 12:46:13 PM Interpretation: Performing Lab:[facility], [address] [place] [phone] Notes/Report: Urine, Clean Catch Color Urine Yellow Appearance Urine Turbid PH 5.5 5.0-9.0 Glucose Urine UA Negative Negative mg/dL Urine Blood Negative Negative Specific [place]ushing - Urine 1.015 1.005-1.025 Urine Protein Negative [...] 05:01:25 PM Interpretation: Performing Lab:[facility], [address] [place] [phone] Notes/Report: Prothrombin Time 28.8 10.9-12.4 SEC INTERNATIONAL [...] 12:40:33 PM Interpretation: Performing Lab:[facility], [address] [place] [phone] Notes/Report: Prothrombin Time 32.9 10.9-12.4 SEC INTERNATIONAL [...] 12:50:48 PM Interpretation: Performing Lab:[facility], [address] [place] [phone] Notes/Report: Prothrombin Time 31.6 10.9-12.4 SEC INTERNATIONAL [...] 12:36:36 PM Interpretation: Performing Lab:[facility], [address] [place] [phone] Notes/Report: Prothrombin Time 30.7 10.9-12.4 SEC INTERNATIONAL [...] 12:22:34 PM Interpretation: Performing Lab:[facility], [address] [place] [phone] Notes/Report: Prothrombin Time 38.8 10.9-12.4 SEC INTERNATIONAL [...] 12:31:54 PM Interpretation: Performing Lab:[facility], [address] [place] [phone] Notes/Report: Prothrombin Time 31.6 10.9-12.4 SEC INTERNATIONAL [...] 12:34:34 PM Interpretation: Performing Lab:[facility], [address] [place] [phone] Notes/Report: Prothrombin Time 27.0 10.9-12.4 SEC INTERNATIONAL [...] 10:51:15 AM Interpretation: Performing Lab:[facility], [address] [place] [phone] Notes/Report: Prothrombin Time 28.6 10.9-12.4 SEC INTERNATIONAL [...] 2.5 - 3.5 Prothrombin Time INR Reviewed date:02/02/2025 12:41:44 PM Interpretation: Performing Lab:[facility], [address] [place] [phone] Notes/Report: Prothrombin Time 36.2 11.2-13.5 SEC INTERNATIONAL [...] 2.5 - 3.5 Prothrombin Time INR Reviewed date:02/18/2025 12:27:45 PM Interpretation: Performing Lab:[facility], [address] [place] [phone] Notes/Report: Prothrombin Time 40.8 11.2-13.5 SEC INTERNATIONAL [...] 04:35:59 PM Interpretation: Performing Lab:[facility], [address] [place] [phone] Notes/Report: Triglycerides 207 <150 mg/dL Desirable Triglyceride: [...] 04:56:43 PM Interpretation: Performing Lab:[facility], [address] [place] [phone] Notes/Report: Hemoglobin A1c % 7.2 <6.0 % [...] average glucose, using the formula of the C5F-Obbmits Average Glucose study (ADAG), Diabetes Care, Vol.31,#8, 2007 Glucose, Whole Blood Reviewed date:03/17/2024 04:28:32 PM Interpretation: Performing Lab:[facility], [address] [place] [phone] Notes/Report: Glucose, Whole Blood 170 60-115 mg/dL METER #: [id number] Testing performed in the [facility], [facility]. Hold Red Reviewed date:04/02/2024 05:17:01 PM Interpretation: Performing Lab:[facility], [address] [place] [phone] Notes/Report: Hold Red See Note Specimen held untested for 24 hours; Call to request Chemistry testing. Glucose, Whole Blood Reviewed date:08/11/2024 11:12:03 AM Interpretation: Performing Lab:[facility], [address] [place] [phone] Notes/Report: Glucose, Whole Blood 134 60-115 mg/dL METER #: [id number] Testing performed in the [facility] , [address], [facility]. Complete Blood Count Auto Di ff Reviewed date:09/15/2024 04:47:15 PM Interpretation: Performing Lab:[facility], [address] [place] [phone] Notes/Report: White Blood Count 10.6 4.8-10.8 X10*3/uL [...] 12:34:11 PM Interpretation: Performing Lab:[facility], [address] [place] [phone] Notes/Report: Prothrombin Time 22.1 10.9-12.4 SEC INTERNATIONAL [...] 12:40:51 PM Interpretation: Performing Lab:[facility], [address] [place] [phone] Notes/Report: Sodium 141 135-145 mmol/L Potassium 4.5 [...] date:09/14/2024 01:32:53 PM Interpretation: Performing Lab: Notes/Report: [address] [address] [address] Scan Report Signed Patient: Kristina Rodriguez MR#: [id number] : 1945 Acct:[id number] Age/Sex: 78 / M ADM Date: 09/13/24 Loc: .ED Attending Dr: Ordering Physician: Liz Levin Date of Service: 09/13/24 Procedure(s): CT cervical spine wo IV con Accession Number(s): [id number] cc: Brody Goldberg MD; Liz Levin Report Number: [id number]: Total DLP = 503.00 mGy-cm CLINICAL HISTORY: [...] in OV> 09/13/241813 DD/ 12 TD/TT: 09/13/241812 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[employer]: [place] [address] [address] Scan Report Signed Patient: Kristina Rodriguez MR#: [id number] : 1945 Acct:[id number] Age/Sex: 78 / M ADM Date: 09/13/24 Loc: .ED Attending Dr: Ordering Physician: Liz Levin Date of Service: 09/13/24 Procedure(s): CT cervical spine wo IV con Accession Number(s): [id number] cc: Brody Goldberg MD; Liz Levin Report Number: [id number]: Total DLP = 503.00 mGy-cm CLINICAL HISTORY: [...] in OV> 09/13/241813 DD/ 12 TD/TT: 09/13/241812 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[employer]: CT head/brain wo con Reviewed date:10/08/2024 01:13:57 PM Interpretation:10-08-2024 Performing Lab: Notes/Report: [address] [address] [address] Scan Report Signed Patient: Kristina Rodriguez MR#: [id number] : 1945 Acct:[id number] Age/Sex: 78 / M ADM Date: 09/13/24 Loc: HO.ED Attending Dr: Ordering Physician: Liz Levin Date of Service: 09/13/24 Procedure(s): CT head/brain wo IV con Accession Number(s): [id number] cc: Brody Goldberg MD; Liz Levin Report Number: [id number]: Total DLP = 840.00 mGy-cm CLINICAL HISTORY: [...] in OV> 09/13/241807 DD/ 06 TD/TT: 09/13/241806 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[employer]: [address] [address] [address] Scan Report Signed Patient: Kristina Rodriguez MR#: [id number] : 1945 Acct:[id number] Age/Sex: 78 / M ADM Date: 09/13/24 Loc: HO.ED Attending Dr: Ordering Physician: Liz Levin Date of Service: 09/13/24 Procedure(s): CT head/brain wo IV con Accession Number(s): [id number] cc: Brody Goldberg MD; Liz Levin Report Number: [id number]: Total DLP = 840.00 mGy-cm CLINICAL HISTORY: [...] in OV> 09/13/241807 DD/ 06 TD/TT: 09/13/241806 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[employer]: SLIDE REVIEW Reviewed date:09/22/2024 12:30:18 PM Interpretation: Performing Lab:[facility], [address] [place] [phone] Notes/Report: SLIDE REVIEW VERIFIED Reason For Referral No Information Medications Medication SIG (Take, Route, Frequency, Duration) Notes Start Date End Date Status Warfarin Sodium 5 MG ALTERNATING BETWEEN TAKING 1.5 TABLETS BY MOUTH EVERY DAY AND 2 TABLETS EVERY DAY DIRECTED Active PARoxetine HCl 20 MG TAKE 1 TABLET BY IN UT EVERY MORNING for 90 Active HumaLOG KwikPen 100 UNIT/ML 8 units three times a day Active Pravastatin Sodium 40 MG 1 tablet Orally Once a day Active Lantus SoloStar 100 UNIT/ML 26 units Qpm once a day Acti ve Diprolene AF 0.05 % 1 application Forwarder Operator ally Once a day for 30 days [...] day(s) Not-Taking Mupirocin 2 % 1 application Forwarder Operator ally Twice a day for 5 day(s) [...] Risk Notes Problem Ventricular premature complex (disorder) (221219619) PVC (premature ventricular contraction) (I49.3) Active confirmed Problem 949519104 Thrombocytopenia (D69.6) Active confirmed Problem 944594692 Tubular adenoma (D36.9) Active confirmed Problem 78390441 Nevus (D22.9) Active confirmed Problem Mixed hyperlipidemia (424246497) Mixed hyperlipidemia (E78.2) Active confirmed Problem Paroxysmal atrial fibrillation (150993410) Paroxysmal atrial fibrillation (I48.0) Active confirmed Problem 1626033 Primary insomnia (F51.01) Active confirmed Problem 63806198 Lumbar disc disease (M51.9) Active confirmed Problem 99017822 Essential hypertension (I10) Active confirmed Problem Long-term current use of anticoagulant (352694315) alf current use of anticoagulant (Z79.01) Active confirmed Problem Long-term current use of anticoagulant (498515577) 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 of anticoagulant therapy (Z79.01) Active confirmed Problem 66529819 Type 2 diabetes mellitus with 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) Active confirmed Problem 379636162 Acute systolic congestive heart failure (I50.21) Active confirmed Problem Pressure injury (morphologic abnormality) (4852897852) Pressure sore (L89.90) Active confirmed Problem Long-term current use of anticoagulant (633279243) Encounter for current long-term use of anticoagulants (Z79.01) Active confirmed Problem 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) Abnormal platelets (D69.1) Active confirmed Problem 129200147 Temporary low platelet count (D69.6) Active confirmed Problem Benign neoplasm of cerebral meninges (32831827) Meningioma (D32.9) Active confirmed Problem 142391653 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 Problem 70481594 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) Active confirmed Problem 05230336053284074 Pressure injur y of sacral region, unstageable (L89.150) Active confirmed Vital Signs Blood pressure diastolic 62 mm Hg 10/08/2024 Height 73.5 in 10/08/2024 Blood pressure systolic 112 mm Hg 10/08/2024 Weight 256 lbs 10/08/2024 BMI 33.31 kg/m2 10/08/2024 Encounters Encounter Location Date Provider Diagnosis Brody Goldberg MD [address] [place] [address] Drive [address] [place] [id number] 02/25/2024 Brody Bombardier Paroxysmal atrial fibrillation I48.0 and 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 of anticoagulant Z79.01 Brody Goldberg MD [address] [place] [address] [id number] 03/12/2024 Brody Bombardier Paroxysmal atrial fibrillation I48.0 and alf current use of anticoagulant Z79.01 Brody Goldberg MD [address] [place] [address] [address] [id number] 03/24/2024 Brody Bombardier Paroxysmal atrial fibrillation I48.0 and alf current use of anticoagulant therapy Z79.01 Brody Goldberg MD [address] [place] [address] Drive [address] [place] [id number] 04/02/2024 Brody Bombardier Mixed hyperlipidemia E78.2 and 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 Brody Goldberg MD [address] [place] [address] [address] [id number] 04/09/2024 Brody Bombardier Paroxysmal atrial fibrillation I48.0 and Encounter for current long-term use of anticoagulants Z79.01 Brody Goldberg MD [address] [place] [address] [address] [id number] 06/30/2024 Brody Bombardier Paroxysmal atrial fibrillation I48.0 and Encounter for current long-term use of anticoagulants Z79.01 Brody Goldberg MD [address] [place] [id number] 07/14/2024 Brody Bombardier Paroxysmal atrial fibrillation I48.0 and Encounter for current long-term use of anticoagulants Z79.01 Brody Goldberg MD [address] [place] [id number] 07/28/2024 Brody Bombardier Paroxysmal atrial fibrillation I48.0 and Encounter for current long-term use of anticoagulants Z79.01 Brody Goldberg MD [address] [place] [address] [id number] 08/11/2024 Brody Bombardier Paroxysmal atrial fibrillation I48.0 and Encounter for current long-term use of anticoagulants Z79.01 Brody Goldberg MD [address] [place] [id number] 08/25/2024 Brody Bombardier Paroxysmal atrial fibrillation I48.0 and Encounter for current long-term use of anticoagulants Z79.01 Brody Goldberg MD [address] [place] [address] [id number] 09/08/2024 Brody Bombardier Paroxysmal atrial fibrillation I48.0 and Encounter for current long-term use of anticoagulants Z79.01 Brody Goldberg MD [address] [place] [address] [id number] 09/22/2024 Brody Bombardier Mixed hyperlipidemia E78.2 ; 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 ; Thrombocytopenia D69.6 and Acute systolic congestive heart failure I50.21 Brody Goldberg MD [address] [place] [address] [id number] 10/08/2024 Brody Bombardier Paroxysmal atrial fibrillation I48.0 and Encounter for current long-term use of anticoagulants Z79.01 Brody Goldberg MD [address] [place] [address] [id number] 10/20/2024 Brody Bombardier Paroxysmal atrial fibrillation I48.0 and Encounter for current long-term use of anticoagulants Z79.01 Brody Goldberg MD [address] [place] [address] [id number] 11/03/2024 Brody Goldberg Encounter for curren t long-term use of anticoagulants Z79.01 and Paroxysmal atrial fibrillation I48.0 Brody Goldberg MD [address] [place] [address] [id number] 11/17/2024 Brody Bombardier Paroxysmal atrial fibrillation I48.0 ; Encounter for administration of vaccine Z23 and alf current use of anticoagulant therapy Z79.01 Brody Goldberg MD [address] [place] [address] [id number] 12/01/2024 Brody Bombardier Paroxysmal atrial fibrillation I48.0 and Encounter for current long-term use of anticoagulants Z79.01 Brody Goldberg MD [address] [place] [address] [id number] 12/17/2024 Brody Bombardier Paroxysmal atrial fibrillation I48.0 and Encounter for current long-term use of anticoagulants Z79.01 Brody Goldberg MD [address] [place] [address] [id number] 12/29/2024 Brody Bombardier Paroxysmal atrial fibrillation I48.0 and Encounter for current long-term use of anticoagulants Z79.01 Brody Goldberg MD [address] [place] [address] [id number] 01/12/2025 Brody Bombardier Paroxysmal atrial fibrillation I48.0 and Encounter for current long-term use of anticoagulants Z79.01 Brody Goldberg MD [address] [place] [address] [id number] 02/02/2025 Brody Bombardier Paroxysmal atrial fibrillation I48.0 and Encounter for current long-term use of anticoagulants Z79.01 Bordy Goldberg MD [address] [place] [address] [id number] 02/18/2025 Brody Bombardier 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 current us e of anticoagulant Z79.01 and Paroxysmal atrial fibrillation I48.0 Brody Goldberg MD [address] [place] [address] [id number] 04/09/2024 Brody Bombardier Paroxysmal atrial fibrillation I48.0 ; 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 ; Pressure injury of sacral region, 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 and Mixed hyperlipidemia E78.2 Brody Goldberg MD [address] [place] [id number] 10/08/2024 Brody Bombardier Meningioma D32.9 ; Paroxysmal atrial fibrillation I48.0 ; 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 ; PVC (premature ventricular contraction) I49.3 ; Essential hypertension I10 ; Mixed hyperlipidemia E78.2 and Acute systolic congestive heart failure I50.21 Brody Goldberg MD [address] [place] [address] [id number] 03/24/2024 Brody Goldberg Pressure sore L89.90 Brody Goldberg MD [address] [place] [address] [id number] 06/18/2024 Brody Goldberg MD [address] [place] [address] [id number] 09/14/2024 Brody Goldberg MD [address] [place] [address] [id number] 02/25/2024 Brody Goldberg MD [address] [place] [address] [id number] 06/05/2024 Brody Goldberg MD [address] [place] [address] [id number] 12/15/2024 Brody Goldberg MD [address] [place] [address] [id number] 12/31/2024 Brody Goldberg MD [address] [id number] 01/25/2025 Brody Goldberg Assessments Encounter Date Diagnosis (ICD Code) Assessment Notes Treatment Notes Treatment Clinical Notes Section Notes 02/25/2024 Paroxysmal atrial fibrillation (ICD-10 - I48.0) 02/25/2024 alf current use of anticoagulant (ICD-10 - Z79.01) 03/12/2024 Paroxysmal atrial fibrillation (ICD-10 - I48.0) 03/12/2024 alf current use of anticoagulant (ICD-10 - Z79.01) 03/24/2024 Paroxysmal atrial fibrillation (ICD-10 - I48.0) 03/24/2024 alf current use of anticoagulant therapy (ICD-10 - [...] 01/12/2025 Paroxysmal atrial fibrillation (ICD-10 - I48.0) 02/02/2025 Paroxysmal atrial fibrillation (ICD-10 - I48.0) 02/18/2025 alf current use of anticoagulant (ICD-10 - Z79.01) 04/09/2024 Paroxysmal atrial fibrillation [...] last note from dr hernandez neurosurgery at [facility] 10/08/2024 Paroxysmal atrial fibrillation (ICD-10 - [...] Paroxysmal atrial fibrillation (ICD-10 - I48.0) 11/17/2024 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 of anticoagulant therapy (ICD-10 - Z79.01) 12/01/2024 Encounter for current long-term use of anticoagulants (ICD-10 - Z79.01) 12/17/2024 Encounter for current long-term use of anticoagulants (ICD-10 - Z79.01) 12/29/2024 Encounter for current long-term use of anticoagulants (ICD-10 - Z79.01) 01/12/2025 Encounter for current long-term use of anticoagulants (ICD-10 - Z79.01) 02/02/2025 Encounter for current long-term use of anticoagulants (ICD-10 - Z79.01) 02/18/2025 Paroxysmal atrial fibrillation (ICD-10 - I48.0) 04/09/2024 Pressure injury of sacral region, unstageable (ICD-10 - L89.150) 10/08/2024 Type 2 diabetes mellitus with diabetic neuropathy (ICD-10 - E11.40) doing well, will continue current regiment 09/22/2024 Thrombocytopenia (ICD-10 - D69.6) 04/09/2024 Mixed hyperlipidemia (ICD-10 - E78.2) stable, will continue current regiment 10/08/2024 PVC (premature ventricular contraction) (ICD-10 - I49.3) had monitor recently. have him call embossing machine operator to get results 09/22/2024 Acute systolic congestive [...] Provider Name:Brody Parikh ier, 04/09/2025 08:15:00 AM, [address] [place] [address], [address], [phone], Provider Name:Brody Parikh ier, 04/16/2025 09:00:00 AM, [address] [place] [address], [address], [phone], Provider Name:Brody Parikh ier, 10/04/2025 08:00:00 AM, [address] [place] [address], [address], [phone], Provider Name:Brody Parikh ier, 10/11/2025 08:30:00 AM, [address] [place] [address], [address], [phone], Insurance Providers Payer Name Payer Address Payer Phone Subscriber Number Group Number Insured Name Patient Relationship to Insured Coverage Start Date Coverage End Date MEDICARE NHIC [place]ARG[employer] [address] [place] [address] [id number] Kristina Rodriguez Self - patient is the insured 3 [employer] [place] [place] [address] [place] [phone] [id number] Kristina Rodriguez Self - patient is the [...]
--- OUTSIDE RECORDS SUMMARY | 2025-02-18 13:48 | XMS_ITS | Clinical Summary ---
Author Organization [facility] Address [address] [address] Phone Care Team Providers Care Bus Mechanic Name Role Phone Brody Goldberg MD Primary [...] file Insurance MEDICARE PART A & B [facility] MEDICARE SUPPLEMENT MEDICARE PART A & B MEDICARE SUPPLEMENT MEDICARE PART A & B MEDICARE SUPPLEMENT MEDICARE PART A & B Member Subscriber Plan / Payer (Ef fective 2012-Present) Name:Jayy Hawk Member ID:[id number] Relation to Subscriber:Self Name:Jayy Hawk Subscriber ID:[id number] Payer ID:[id number] Group ID:Not on file Type:Medicare Address: [employer] [address] MEDICARE SUPPLEMENT MEDICARE PART A & B [facility] MEDICARE SUPPLEMENT MEDICARE PART A & B MEDICARE SUPPLEMENT MEDICARE PART A & B MEDICARE SUPPLEMENT MEDICARE PART A & B MEDICARE SUPPLEMENT MEDICARE PART A & B [id number] [place] [address] MEDICARE SUPPLEMENT Care Teams Bus Mechanic Relationship Specialty Start Date End Date Brody Goldberg MD [address] [place] [address] [place] [address] PCP - General Internal Medicine 07/28/20 Additional Source Comments The information contained in this document represents components of the legal health record. It is not the complete legal health record.[facility]
--- OUTSIDE RECORDS SUMMARY | 2025-02-18 13:48 | XMS_ITS | Patient Health Record ---
Author Organization [facility] Address [address] [place] [phone] Care Team Providers Care Pe Manager Name Role Phone Brody Goldberg MD Primary Care Provider Armando Hunt Unavailable [phone] Reason For Referral No Information Medications Medication SIG (Take, Route, Frequency, Duration) Notes Start Date End Date Status Aspir-81 81 MG Tablet Delayed Release 1 tablet Orally Once a day Active Paxil 20 MG Tablet 1 tablet in the morn ing Orally Once a day Active Losartan Potassium-HCTZ 100-25 MG Tablet 1 tablet Orally Once a day Active Atenolol 50 MG Tablet 1 tablet Orally On ce a day Active Warfarin Sodium 5 MG Tablet 1 tablet Orally Active Glimepiride 1 MG Tablet 1 tablet with br eakfast or the first main meal of the day Orally Once a day Active Finasteride 5 MG Tablet 1 tablet Orally Once a day Active CoQ-10 400 MG Capsule 1 capsule with a m eal Orally Once a day Active Social History Social History Additional Details Category Social Info Options Details Miscellaneous: Marital status: Occupation: retired Caffeine: 1-2 cups per day Section Notes: Nonsmoker;no sig alcohol Nonsmoker;no sig alcohol Problems Problem Type SNOMED Code ICD Code Onset Dates Problem Status W/U Status Risk Notes Problem Diarrhea (68695553) Diarrhea (787.91) Active confirmed Problem Change in bowel habit (34441396) Change in bowel habits (787.99) Active confirmed Problem History of adenomatous polyp of colon (207575443) History of adenomatous polyp of colon (V12.72) Active confirmed Problem Weight loss (623214843) Weight loss (783.21) Active confirmed Plan Of Treatment Future Test Test Name Order Date COLONOSCOPY 09/03/2013 Insurance Providers Payer Name Payer Address Payer Phone Subscriber Number Group Number Insured Name Patient Relationship to Insured Coverage Start Date Coverage End Date MED[place]ARE OF [place] [address] T[place]END[place] [id number] JENNIFER KEYSHA Self - patient is the insured [facility] [address] [place] [address] [phone] [id number] JENNIFER, KEYSHA Self - patient is the insured Medical (General) History Medical History History ICD Code NIDDM hypertension Denies [place],CVA,Lung disease,renal disease Atrial fib Anxiety On Finasteride [...]
== END 2025-02-18 10:55 | disposition home or self-care (01) ==
LOC: HO.LNP 10:54
PROVIDERS: Visit Provider Internal Medicine
DX: I48.0 Paroxysmal atrial fibrillation (principal); Z79.01 Long term (current) use of anticoagulants
CPT/HCPCS: 85610

== ENCOUNTER 2025-03-02 10:42 | Outpatient (REF) | payer MEDICARE, SELFPAY ==
--- OUTSIDE RECORDS SUMMARY | 2020-07-28 10:05 | XMS_ITS | Encounter Summary ---
Author Organization [facility] Address [address] [facility] [address] [place] [address] Phone Care Team Providers Care Route Inspector Name Role Phone Brody Goldberg MD Primary Care Provider Encounter Details Date Type Department Care Team (Late st Contact Info) Description 07/28/2020 11:05 AM EDT Hospital Encounter [facility] [address] [place] [address] Luis Manuel Cabello PA [address] [place] [phone] [email or web address] g Social History Tobacco Use Types Packs/Day Years Used Date Smoking Tobacco: Never Smokeless Tobacco: Never Education Answer Date Recorded Are you interested in more education? Not on richard e 07/14/2022 Are you concerned about learning? Not on file 07/14/2022 No 07/14/2022 No 07/14/2022 Digital Access Answer Date Recorded No 08/14/2022 No 08/14/2022 Reliable internet access at home? Not on file 08/14/2022 Device with a working camera? Not on file Sex and Gender Information Value Date Recorded Sex Assigned at Not on file Legal Sex Male 10:45 AM EDT Gender Identity Not on file Sexual Orientation Not on file documented as of this encounter Plan of Treatment Not on file documented as of this encounter Procedures Procedure Name Priority Date/Time Associated Diagnosis Comments XR FINGER 2 OR MORE VIEWS (RIGHT) Urgent/patient waiting 07/28/2020 11:09 AM EDT Puncture wound of right index finger documented in this encounter Results * XR FINGER 2 OR MORE VIEWS (RIGHT) (07/28/2020 11:09 AM EDT) Anatomical Region Laterality Modality Hand Right Computed Radiogr aphy 07/28/2020 11:3 2 AM EDT Impressions 07/28/2020 11:45 AM EDT No acute fracture or dislocation of the right hand index finger. ATTESTATION: Vilma Bowman as teaching physician, have reviewed the images for this case and if necessary edited the report originally created by Kassandra Cruz. Narrative 07/28/2020 11:45 AM EDT Reason for exam (per EHR order): *joint pain, hand; nail gun punctured finger yesterday, pain and ttp at dip and surrounding phalanges, eval for fx TECHNIQUE: Two radiographs of the right index (2nd) finger, and a PA radiograph of the right hand. COMPARISON: None. FINDINGS: No acute fracture or dislocation of the right index finger. Alignment is maintained. Mild cartilage space narrowing of the DIP joint with degenerative periarticular cystic change. Mild subadjacent soft tissue swelling. No radiopaque foreign body. Frontal evaluation of the right hand demonstrates no displaced fracture. Procedure Note Vilma Garcia MD - 07/28/2020 Reason for exam (per EHR order): *joint pain, hand; nail gun puncturedfinger yesterday, pain and ttp at dip and surrounding phalanges, eval forfx TECHNIQUE: Two radiographs of the right index (2nd) finger, and a PAradiograph of the right hand. COMPARISON: None. FINDINGS: No acute fracture or dislocation of the right index finger. Alignment ismaintained. Mild cartilage space narrowing of the DIP joint withdegenerative periarticular cystic change. Mild subadjacent soft tissueswelling. No radiopaque foreign body. Frontal evaluation of the right hand demonstrates no displaced fracture. IMPRESSION: No acute fracture or dislocation of the right hand index finger. ATTESTATION: Vilma Bowman as teaching physician, have reviewed theimages for this case and if necessary edited the report originally createdby Kassandra Cruz. Luis Manuelroland Ruiz Irineo ZAVALA IMG XR UPPER EXTREMITY Audra l Result documented in this encounter Visit Diagnoses Not on filedocumented in this encounter Care Teams Route Inspector Relationship Specialty Start Date End Date Brody Goldberg MD [address] [place] [address] [place] [address] PCP - General Internal Medicine 07/28/20 documented as of this encounter Additional Source Comments The information contained in this document represents components of the legal health record. It is not the complete legal health record.[facility]
--- OUTSIDE RECORDS SUMMARY | 2024-12-01 03:45 | XMS_ITS ---
Author Organization Brody Goldberg MD Address [address] [place] [phone] Care Team Providers Care Application Systems Engineer Name Role Phone Brody Goldberg Primary Care Provider [phone] Results Component Value Reference Range Notes Prothrombin Time INR Reviewed date:12/01/2024 12:22:34 PM Interpretation: Performing Lab:[facility], [address] [place] [phone] Notes/Report: Prothrombin Time 38.8 10.9-12.4 SEC INTERNATIONAL [...] Goldberg MD [address] [place] [phone] 12/01/2024 Brody Goldberg Paroxysmal atrial fibrillation I48.0 and Encounter for current long-term use of anticoagulants Z79.01 Assessments Encounter Date Diagnosis (ICD Code) Assessment Notes Treatment Notes Treatment Clinical Notes Section Notes 12/01/2024 Paroxysmal atrial fibrillation (ICD-10 - I48.0) 12/01/2024 Encounter for current long-term use of anticoagulants (ICD-10 - Z79.01) Plan Of Treatment Next Appt Details Provider Name:Brody Parikh syd, 04/09/2025 08:15:00 AM, [address] [place] [address], [address] [place] [address], [phone], Provider Name:Brody Parikh syd, 04/16/2025 09:00:00 AM, [address] [place] [address], [place] [address], [place], [place], [phone], Provider Name:Brody Parikh syd, 10/04/2025 08:00:00 AM, [address] [place] [address], [address], [phone], Provider Name:Brody Parikh syd, 10/11/2025 08:30:00 AM, [address] [place] [address], [address], [phone], Progress Notes * JENNIFER, Jayy LDOB:1945 ([age] yo M)Acc No.[id number]:12/01/2024 Progress Note Patient: Jayy ANDRADE Provider: Breezy Goldberg MD :1945 A ge:79 Y S ex:Male Date:12/01/2024 Address:[address] [place], [place] [phone] Subjective: * Chief Complaints: * 1 . [...] * Provider: Breezy Goldberg MD Date: 0 12/01/2024 Generated for Doron Paulino/Pauline on: 05/03/2024 01:41 PM EST
--- OUTSIDE RECORDS SUMMARY | 2024-12-15 02:03 | XMS_ITS ---
Author Organization Brody Goldebrg MD Address [address] [facility] [address] [place] [address] [phone] Care Team Providers Care Turf And Grounds Supervisor Name Role Phone Brody Goldberg Primary Care Provider [phone] REASON FOR VISIT Yovanny Rodriguez PT-INR Encounters Encounter Location Date Provider Diagnosis Brody Goldberg MD [address] [place] [address] [address] [place] [address] [phone] 12/15/2024 Brody Goldberg Plan Of Treatment Next Appt Details Provider Name:Brody velarde, 04/09/2025 08:15:00 AM, [address] [place] [address], [address], [phone], Provider Name:Brody Parikh iemiller, 04/16/2025 09:00:00 AM, [address] [place] [address], [address], [phone], Provider Name:Brody velarde, 10/04/2025 08:00:00 AM, [address] [place] [address], [address], [phone], Provider Name:Brody velarde, 10/11/2025 08:30:00 AM, [address] [place] [address], [address], [phone], Progress Notes * Jayy RODRIGUEZ LDOB:1945 ([age] yo M)Acc No.[id number]:12/15/2024 Patient: Jayy ANDRADE :1945 A ge:79 Y S ex:Male Address:[address] [place] [address] * true * Date: Generated for Doron granados/Quang/Yismitting on: 05/03/2024 01:43 PM EST
--- OUTSIDE RECORDS SUMMARY | 2024-12-17 04:15 | XMS_ITS ---
Author Organization Brody Goldberg MD Address [address] [place] [address] [phone] Care Team Providers Care Superintendent Stevedoring Name Role Phone Brody Goldberg Primary Care Provider [phone] Results Component Value Reference Range Notes Prothrombin Time INR Reviewed date:12/17/2024 12:31:54 PM Interpretation: Performing Lab:[facility], [address] [place] [phone] Notes/Report: Prothrombin Time 31.6 10.9-12.4 SEC INTERNATIONAL [...] Brody Goldberg MD [address] [place] [address] [phone] 12/17/2024 Brody Goldberg Paroxysmal atrial fibrillation I48.0 and Encounter for current long-term use of anticoagulants Z79.01 Assessments Encounter Date Diagnosis (ICD Code) Assessment Notes Treatment Notes Treatment Clinical Notes Section Notes 12/17/2024 Paroxysmal atrial fibrillation (ICD-10 - I48.0) 12/17/2024 Encounter for current long-term use of anticoagulants (ICD-10 - Z79.01) Plan Of Treatment Next Appt Details Provider Name:Brody Parikh syd, 04/09/2025 08:15:00 AM, [address] [place] [address], [address], [phone], Provider Name:Brody Parikh syd, 04/16/2025 09:00:00 AM, [address] [place] [address], [address], [phone], Provider Name:Brody Parikh syd, 10/04/2025 08:00:00 AM, [address] [place] [address], [address], [phone], Provider Name:Brody Parikh syd, 10/11/2025 08:30:00 AM, [address] [place] [address], [address], [phone], Progress Notes * JENNIFER, Jayy LDOB:1945 ([age] yo M)Acc No.[id number]:12/17/2024 Progress Note Patient: Jayy ANRDADE Provider: Breezy Goldberg MD :1945 A ge:79 Y S ex:Male Date:12/17/2024 Address:[address] [place], [place] [phone] Subjective: * Chief Complaints: * 1 . INR. * Medical History: Objective: * Vitals: Assessment: * Assessment: 1. P aroxysmal atrial fibrillation - I48.0 (Primary) 2 . E ncounter for current long-term use of anticoagulants - Z79.01 Plan: * Treatment: 2. E ncounter for current long-term use of anticoagulants L AB: Prothrombin Time INR (Collection Date & Time - 12/17/2024 09:15 AM) * Procedure Codes: 3 6415 VENIPUNCT, ROUTINE* * * The named appointment provid er may or may not be the originator of this progress note, and it is not deemed complete until electronically signed by the appointment provider. Sign off status: Pending * Provider: Breezy Goldberg MD Date: 1 Generated for Doron Paulino/Pauline on: 05/03/2024 01:41 PM EST
--- OUTSIDE RECORDS SUMMARY | 2024-12-29 03:15 | XMS_ITS ---
Author Organization Brody Goldberg MD Address [address] [place] [phone] Care Team Providers Care [facility] Center Winder Name Role Phone Brody Goldberg Primary Care Provider [phone] Results Component Value Reference Range Notes Prothrombin Time INR Reviewed date:12/29/2024 12:34:34 PM Interpretation: Performing Lab:[facility], [address] [place] [phone] Notes/Report: Prothrombin Time 27.0 10.9-12.4 SEC INTERNATIONAL [...] Brody Goldberg MD [address] [place] [phone] 12/29/2024 Brody Goldberg Paroxysmal atrial fibrillation I48.0 and Encounter for current long-term use of anticoagulants Z79.01 Assessments Encounter Date Diagnosis (ICD Code) Assessment Notes Treatment Notes Treatment Clinical Notes Section Notes 12/29/2024 Paroxysmal atrial fibrillation (ICD-10 - I48.0) 12/29/2024 Encounter for current long-term use of anticoagulants (ICD-10 - Z79.01) Plan Of Treatment Next Appt Details Provider Name:Brody Parikh syd, 04/09/2025 08:15:00 AM, [address] [place] [address], [address], [phone], Provider Name:Brody Parikh syd, 04/16/2025 09:00:00 AM, [address] [place] [address], [address], [phone], Provider Name:Brody Parikh syd, 10/04/2025 08:00:00 AM, [address] [place] [address], [address], [phone], Provider Name:Brody Parikh syd, 10/11/2025 08:30:00 AM, [address] [place] [address], [address], [phone], Progress Notes * JENNIFER, Jayy LDOB:1945 ([age] yo M)Acc No.[id number]:12/29/2024 Progress Note Patient: Jayy ANDRADE Provider: Breezy Goldberg MD :1945 A ge:79 Y S ex:Male Date:12/29/2024 Address:[address] [place], [place] [phone] Subjective: * Chief Complaints: * 1 . [...] 1 Generated for Doron Paulino/Pauline on: 05/03/2024 01:42 PM EST
--- OUTSIDE RECORDS SUMMARY | 2024-12-31 09:30 | XMS_ITS ---
Author Organization Brody Goldberg MD Address 10 [facility] [address] [place] [phone] Care Team Providers Care Match Marker Name Role Phone Brody Goldberg Primary Care Provider REASON FOR VISIT New Refill Request Medications Medication SIG (Take, Route, Fr equency, Duration) Notes Start Date End Date Status PARoxetine HCl 20 MG TAKE 1 TABLET BY MO UTH EVERY MORNING for 90 Active Encounters Encounter Location Date Provider Diagnosis Brody Goldberg MD 10 [facility] [address] [place] [phone] 12/31/2024 Brody Goldberg Plan Of Treatment Medication Medication Name Sig Start Date Stop Date Notes PARoxetine HCl 20 MG TAKE 1 TABLET BY MO UTH EVERY MORNING for 90 Next Appt Details Provider Name:Brody velarde, 04/09/2025 08:15:00 AM, [address] [place] [address], [address], [phone], Provider Name:Brody velarde, 04/16/2025 09:00:00 AM, [address] [place] [address], [address], [phone], Provider Name:Brody velarde, 10/04/2025 08:00:00 AM, [address] [place] [address], [address], [phone], Provider Name:Brody Samir Parikh ier, 10/11/2025 08:30:00 AM, [address], [address], [place], [place], [phone], Progress Notes * Jayy RODRIGUEZ LDOB:1945 ([age] yo M)Acc No.[id number]:12/31/2024 Patient: Jayy ANDRADE :1945 A ge:79 Y S ex:Male Address:[address] [place] [address] * Refills Refill PARoxetine HCl Tablet, 20 MG, 90 Tablet, TAKE 1 TABLET BY MOUTH EVERY MORNING, 90, Refills=3 * true * Date: Generated for Doron granados/Quang/Kyitting on: 05/03/2024 01:41 PM EST
--- OUTSIDE RECORDS SUMMARY | 2025-01-12 03:30 | XMS_ITS ---
Author Organization Brody Goldberg MD Address [address] [place] [phone] Care Team Providers Care Paramedical Aide Name Role Phone Brody Goldberg Primary Care Provider Results Component Value Reference Range Notes Prothrombin Time INR Reviewed date:01/12/2025 10:51:15 AM Interpretation: Performing Lab:[facility], [address] [place] [phone] Notes/Report: Prothrombin Time 28.6 10.9-12.4 SEC INTERNATIONAL [...] Brody Goldberg MD [address] [place] [phone] 01/12/2025 Brody Goldberg Paroxysmal atrial fibrillation I48.0 and Encounter for current long-term use of anticoagulants Z79.01 Assessments Encounter Date Diagnosis (ICD Code) Assessment Notes Treatment Notes Treatment Clinical Notes Section Notes 01/12/2025 Paroxysmal atrial fibrillation (ICD-10 - I48.0) 01/12/2025 Encounter for current long-term use of anticoagulants (ICD-10 - Z79.01) Plan Of Treatment Next Appt Details Provider Name:Brody Parikh syd, 04/09/2025 08:15:00 AM, [address] [place] [address], [address] [place] [address], [phone], Provider Name:Brody Parikh syd, 04/16/2025 09:00:00 AM, [address] [place] [address], [place] [address], [place], [place], [phone], Provider Name:Brody Parikh syd, 10/04/2025 08:00:00 AM, [address] [place] [address], [address], [phone], Provider Name:Brody Parikh syd, 10/11/2025 08:30:00 AM, [address] [place] [address], [address], [phone], Progress Notes * JENNIFER, Jayy LDOB:1945 ([age] yo M)Acc No.[id number]:01/12/2025 Progress Note Patient: Jayy ANDRADE Provider: Breezy Goldberg MD :1945 A ge:79 Y S ex:Male Date:01/12/2025 Address:[address] [place], [place] [phone] Subjective: * Chief Complaints: * 1 . [...] 1 Generated for Doron Paulino/Pauline on: 05/03/2024 01:43 PM EST
--- OUTSIDE RECORDS SUMMARY | 2025-01-25 00:21 | XMS_ITS ---
Author Organization Brody Goldberg MD Address 10 [facility] [address] [place] [phone] Care Team Providers Care Manager Internal Name Role Phone Brody Goldberg Primary Care Provider REASON FOR VISIT PT-INR Encounters Encounter Location Date Provider Diagnosis Brody Goldberg MD 10 [facility] [address] [place] [phone] 01/25/2025 Brody Goldberg Plan Of Treatment Next Appt Details Provider Name:Brody velarde, 04/09/2025 08:15:00 AM, [address] [place] [address], [address], [phone], Provider Name:Brody Parikh ier, 04/16/2025 09:00:00 AM, [address] [place] [address], [address], [phone], Provider Name:Brody Parikh ier, 10/04/2025 08:00:00 AM, [address] [place] [address], [phone], Provider Name:Brody velrade, 10/11/2025 08:30:00 AM, [address] [place] [address], [phone], Progress Notes * Jayy RODRIGUEZ LDOB:1945 ([age] yo M)Acc No.[id number]:01/25/2025 Patient: Jayy ANDRADE :1945 A ge:79 Y S ex:Male Address:[address] [place] [address] * true * Date: Generated for Doron granados/Quang/Kyitting on: 05/03/2024 01:44 PM EST
--- OUTSIDE RECORDS SUMMARY | 2025-02-02 04:00 | XMS_ITS ---
Author Organization Brody Goldberg MD Address [address] [place] [phone] Care Team Providers Care Anodizing Line Operator Name Role Phone Brody Goldberg Primary Care Provider Results Component Value Reference Range Notes Prothrombin Time INR Reviewed date:02/02/2025 12:41:44 PM Interpretation: Performing Lab:[facility], [address] [place] [phone] Notes/Report: Prothrombin Time 36.2 11.2-13.5 SEC INTERNATIONAL [...] Goldberg MD [address] [place] [phone] 02/02/2025 Brody Goldberg Paroxysmal atrial fibrillation I48.0 and Encounter for current long-term use of anticoagulants Z79.01 Assessments Encounter Date Diagnosis (ICD Code) Assessment Notes Treatment Notes Treatment Clinical Notes Section Notes 02/02/2025 Paroxysmal atrial fibrillation (ICD-10 - I48.0) 02/02/2025 Encounter for current long-term use of anticoagulants (ICD-10 - Z79.01) Plan Of Treatment Next Appt Details Provider Name:Brody Parikh syd, 04/09/2025 08:15:00 AM, [address] [place] [address], [address] [place] [address], [phone], Provider Name:Brody Parikh syd, 04/16/2025 09:00:00 AM, [address] [place] [address], [address], [phone], Provider Name:Brody Parikh syd, 10/04/2025 08:00:00 AM, [address] [place] [address], [address], [phone], Provider Name:Brody Parikh syd, 10/11/2025 08:30:00 AM, [address] [place] [address], [address], [phone], Progress Notes * JENNIFER Jayy LDOB:1945 ([age] yo M)Acc No.[id number]:02/02/2025 Progress Note Patient: Jayy ANDRADE Provider: Breezy Goldberg MD :1945 A ge:79 Y S ex:Male Date:02/02/2025 Address:[address] [place], [place] [phone] Subjective: * Chief Complaints: * 1 . [...] Date: 04/04/2024 Generated for Doron Paulino/Pauline on: 05/03/2024 01:43 PM EST
--- OUTSIDE RECORDS SUMMARY | 2025-02-18 03:45 | XMS_ITS ---
Author Organization Brody Goldberg MD Address [address] [place] [phone] Care Team Providers Care Dye Maker Name Role Phone Brody Goldberg Primary Care Provider Results Component Value Reference Range Notes Prothrombin Time INR Reviewed date:02/18/2025 12:27:45 PM Interpretation: Performing Lab:[facility], [address] [place] [phone] Notes/Report: Prothrombin Time 40.8 11.2-13.5 SEC INTERNATIONAL NORM RATIO 3.4 0.9-1.1 INTERNATIONAL [...] Goldberg MD [address] [place] [phone] 02/18/2025 Brody Goldberg alf current us e of anticoagulant Z79.01 and Paroxysmal atrial fibrillation I48.0 Assessments Encounter Date Diagnosis (ICD Code) Assessment Notes Treatment Notes Treatment Clinical Notes Section Notes 02/18/2025 alf current use of anticoagulant (ICD-10 - Z79.01) 02/18/2025 Paroxysmal atrial fibrillation (ICD-10 - I48.0) Plan Of Treatment Next Appt Details Provider Name:Brody Parikh syd, 04/09/2025 08:15:00 AM, [address] [place] [address], Suite [facility], [place], [place], [phone], Provider Name:Brody Parikh syd, 04/16/2025 09:00:00 AM, [address] [place] [address], [place] [address], [place], [place], [phone], Provider Name:Brody Parikh syd, 10/04/2025 08:00:00 AM, [address] [place] [address], [place] [address], [place], [place], [phone], Provider Name:Brody Parikh syd, 10/11/2025 08:30:00 AM, [address] [place] [address], [address], [phone], Progress Notes * JENNIFER Jayy LDOB:1945 ([age] yo M)Acc No.[id number]:02/18/2025 Progress Note Patient: Jayy ANDRADE Provider: Breezy Goldberg MD :1945 A ge:79 Y S ex:Male Date:02/18/2025 Address:[address] [place] [address] Subjective: * Chief Complaints: * 1 . INR. * Medical History: Objective: * Vitals: Assessment: * Assessment: 1. L cleo term current use of anticoagulant - Z79.01 (Primary) 2 . P aroxysmal atrial fibrillation - I48.0 Plan: * Treatment: 2. P aroxysmal atrial fibrillation L AB: Prothrombin Time INR (Collection Date & Time - 02/18/2025 10:04 AM) * Procedure Codes: 3 6415 VENIPUNCT, ROUTINE* * * The named appointment provid er may or may not be the originator of this progress note, and it is not deemed complete until electronically signed by the appointment provider. Sign off status: Pending * Provider: Breezy Goldberg MD Date: 1 04/21/2024 Generated for Doron granados/Quang/Pauline on: 05/03/2024 01:43 PM EST
--- OUTSIDE RECORDS SUMMARY | 2025-03-02 03:45 | XMS_ITS ---
Author Organization Brody Goldberg MD Address [address] [place] [phone] Care Team Providers Care Turbine Blade Assembler Name Role Phone Brody Goldberg Primary Care Provider Results Component Value Reference Range Notes Prothrombin Time INR Reviewed date:03/02/2025 11:06:47 AM Interpretation: Performing Lab:[facility], [address] [place] [phone] Notes/Report: Prothrombin Time 33.9 11.2-13.5 SEC INTERNATIONAL [...] Brody Goldberg MD [address] [place] [phone] 03/02/2025 Brody Goldberg Paroxysmal atrial fibrillation I48.0 and Encounter for current long-term use of anticoagulants Z79.01 Assessments Encounter Date Diagnosis (ICD Code) Assessment Notes Treatment Notes Treatment Clinical Notes Section Notes 03/02/2025 Paroxysmal atrial fibrillation (ICD-10 - I48.0) 03/02/2025 Encounter for current long-term use of anticoagulants (ICD-10 - Z79.01) Plan Of Treatment Next Appt Details Provider Name:Brody Parikh syd, 04/09/2025 08:15:00 AM, [address] [place] [address], [address] [place] [address], [phone], Provider Name:Brody Parikh syd, 04/16/2025 09:00:00 AM, [address] [place] [address], [place] [address], [place], [place], [phone], Provider Name:Brody Parikh ericr, 10/04/2025 08:00:00 AM, [address] [place] [address], [address], [phone], Provider Name:Brody Parikh ericr, 10/11/2025 08:30:00 AM, [address] [place] [address], [address], [phone], Progress Notes * JENNIFER Jayy LDOB:1945 ([age] yo M)Acc No.[id number]:03/02/2025 Progress Note Patient: Jayy ANDRADE Provider: Breezy Goldberg MD :1945 A ge:79 Y S ex:Male Date:03/02/2025 Address:[address] [place], [place] [phone] Subjective: * Chief Complaints: * 1 . INR. * Medical History: Objective: * Vitals: Assessment: * Assessment: 1. P aroxysmal atrial fibrillation - I48.0 (Primary) 2 . E ncounter for current long-term use of anticoagulants - Z79.01 Plan: * Treatment: 2. E ncounter for current long-term use of anticoagulants L AB: Prothrombin Time INR (Collection Date & Time - 03/02/2025 08:45 AM) * * The named appointment provid er may or may not be the originator of this progress note, and it is not deemed complete until electronically signed by the appointment provider. Sign off status: Pending * Provider: Breezy Goldberg MD Date: 05/03/2024 Generated for Doron granados/Quang/Pauline on: 05/03/2024 01:42 PM EST
[2025-03-02 11:03] LABS: INTERNATIONAL NORM RATIO 2.8 (0.9-1.1); Prothrombin Time 33.9 SEC (11.2-13.5)
--- OUTSIDE RECORDS SUMMARY | 2025-03-02 13:43 | XMS_ITS | Patient Health Record ---
Author Organization [facility] Address [address] [place] [phone] Care Team Providers Care Rental Boats Caretaker Name Role Phone Brody Goldberg MD Primary Care Provider Armando Hunt Unavailable [phone] Reason For Referral No Information Medications Medication [...] Status W/U Status Risk Notes Problem Diarrhea (92124045) Diarrhea (787.91) Active confirmed Problem Change in bowel habit (60580179) Change in bowel habits (787.99) Active confirmed Problem History of adenomatous polyp of colon (480698276) History of adenomatous polyp of colon (V12.72) Active confirmed Problem Weight loss (970113267) Weight loss (783.21) Active confirmed Plan Of Treatment Future Test Test Name Order Date COLONOSCOPY 09/03/2013 Insurance Providers Payer Name Payer Address Payer Phone Subscriber Number Group Number Insured Name Patient Relationship to Insured Coverage Start Date Coverage End Date MED[place]ARE OF [place] [address] [place] [id number] JENNIFER KEYSHA Self - patient is the insured [facility] [address] [place] [id number] JENNIFER, KEYSHA Self - patient is the insured Medical (General) History Medical History History ICD Code NIDDM hypertension Denies [place],CVA,Lung disease,renal disease Atrial fib Anxiety On Finasteride [...]
--- OUTSIDE RECORDS SUMMARY | 2025-03-02 13:43 | XMS_ITS | Clinical Summary ---
Author Organization [facility] Address [address] [address] Phone Care Team Providers Care Farm General Manager Name Role Phone Brody Goldberg MD [...] file Insurance MEDICARE PART A & B [facility] MEDICARE SUPPLEMENT MEDICARE PART A & B MEDICARE SUPPLEMENT MEDICARE PART A & B MEDICARE SUPPLEMENT MEDICARE PART A & B Member Subscriber Plan / Payer (Ef fective 2012-Present) Name:Jayy Hawk Member ID:[id number] Relation to Subscriber:Self Name:Jayy Hawk Subscriber ID:[id number] Payer ID:[id number] Group ID:Not on file Type:Medicare Address: [employer] [address] MEDICARE SUPPLEMENT [employer] Address: [employer] [address] [place] [phone] MEDICARE PART A & B [facility] MEDICARE SUPPLEMENT MEDICARE PART A & B MEDICARE SUPPLEMENT MEDICARE PART A & B MEDICARE SUPPLEMENT MEDICARE PART A & B MEDICARE SUPPLEMENT MEDICARE PART A & B [id number] [place] [address] MEDICARE SUPPLEMENT Care Teams Farm General Manager Relationship Specialty Start Date End Date Brody Goldberg MD [address] [place] [address] [place] [address] PCP - General Internal Medicine 07/28/20 Additional Source Comments The information contained in this document represents components of the legal health record. It is not the complete legal health record.[facility]
--- OUTSIDE RECORDS SUMMARY | 2025-03-02 13:43 | XMS_ITS | Patient Health Record ---
Author Organization Brody Goldberg MD Address [address] [place], [place] [id number] Care Team Providers Care Video News Editor Name Role Phone Brody Goldberg Primary Care Provider Allergies Allergen (clinical drug ingredient) Drug/Non Drug Allergy documented on EMR Reaction Allergy Type Onset Date Status metformin Metformin HCl diarrhea Drug Allergy Act enzo lisinopril Lisinopril couigh Drug Allergy Activ e Results Component Value Reference Range Notes Prothrombin Time INR Reviewed date:03/12/2024 12:34:57 PM Interpretation: Performing Lab:[address] [phone] Notes/Report: Prothrombin Time 32.7 10.9-12.4 SEC INTERNATIONAL [...] Reviewed date:03/24/2024 12:22:39 PM Interpretation: Performing Lab:[address] [phone] Notes/Report: Prothrombin Time 25.6 10.9-12.4 SEC INTERNATIONAL [...] Reviewed date:04/02/2024 05:16:30 PM Interpretation: Performing Lab:[address] [phone] Notes/Report: Bilirubin Total 0.5 0.0-1.0 mg/dL Bilirubin Direct 0.2 0.0-0.5 mg/dL Aspartate Amino Transferase 24 5-37 U/L Alanine Aminotransferase 18 0-40 U/L Total Protein 7.3 6.5-8.0 g/dL Albumin Level 4.1 3.5-5.0 g/dL Alkaline Phosphatase 65 39-117 U/L Glucose Fasting Reviewed date:04/02/2024 05:15:41 PM Interpretation: Performing Lab:[address] [phone] Notes/Report: Glucose Fasting 153 60-99 mg/dL A fasting glucose of 126 mg/dl or greater on more than one occasion is considered diagnostic of diabetes. Lipid Panel with Reflex Reviewed date:04/02/2024 05:16:03 PM Interpretation: Performing Lab:[address] [phone] Notes/Report: Triglycerides 196 <150 mg/dL Desirable Triglyceride: [...] A1c Reviewed date:04/02/2024 05:16:13 PM Interpretation: Performing Lab:[facility], [address] [place] [phone] Notes/Report: Hemoglobin A1c % 7.1 <6.0 % [...] average glucose, using the formula of the M0Q-Scmcxzx Average Glucose study (ADAG), Diabetes Care, Vol.31,#8, Oct. 2007 Prothrombin Time INR Reviewed date:04/09/2024 12:14:10 PM Interpretation: Performing Lab:[facility], [address] [place] [phone] Notes/Report: Prothrombin Time 31.7 10.9-12.4 SEC INTERNATIONAL [...] INR Reviewed date:06/30/2024 11:32:00 AM Interpretation: Performing Lab:[facility], [address] [place] [phone] Notes/Report: Prothrombin Time 35.1 10.9-12.4 SEC INTERNATIONAL [...] INR Reviewed date:07/14/2024 12:30:07 PM Interpretation: Performing Lab:[facility], [address] [place] [phone] Notes/Report: Prothrombin Time 25.2 10.9-12.4 SEC INTERNATIONAL [...] INR Reviewed date:07/28/2024 11:29:24 AM Interpretation: Performing Lab:[facility], [address] [place] [phone] Notes/Report: Prothrombin Time 27.8 10.9-12.4 SEC INTERNATIONAL [...] INR Reviewed date:08/14/2024 07:43:22 AM Interpretation: Performing Lab:[facility], [address] [place] [phone] Notes/Report: Prothrombin Time 21.6 10.9-12.4 SEC INTERNATIONAL [...] INR Reviewed date:08/25/2024 11:30:24 AM Interpretation: Performing Lab:[facility], [address] [place] [phone] Notes/Report: Prothrombin Time 25.1 10.9-12.4 SEC INTERNATIONAL [...] INR Reviewed date:09/08/2024 10:54:20 AM Interpretation: Performing Lab:[address] [address] Notes/Report: Prothrombin Time 24.8 10.9-12.4 SEC INTERNATIONAL [...] ff Reviewed date:09/22/2024 12:24:19 PM Interpretation: Performing Lab:[facility], [address] [place] [phone] Notes/Report: White Blood Count 8.7 4.8-10.8 X10*3/uL [...] C ORRECTED REPORT C ORRECTED REPORT Comprehensive [place]. Panel Fa st Reviewed date:09/22/2024 12:50:27 PM Interpretation: Performing Lab:[facility], [address] [place] [phone] Notes/Report: Sodium 141 135-145 mmol/L Potassium 4.1 [...] Panel Reviewed date:09/22/2024 12:24:29 PM Interpretation: Performing Lab:[facility], [address] [place] [phone] Notes/Report: Triglycerides 171 <150 mg/dL Desirable Triglyceride: [...] (Free>4and<10) Reviewed date:09/22/2024 12:23:28 PM Interpretation: Performing Lab:[facility], [address] [place] [phone] Notes/Report: PSA,Total (Free>4and<10) 1.22 0.00-4.00 ng/mL A [...] Random Reviewed date:09/22/2024 12:32:32 PM Interpretation: Performing Lab:[address] [phone] Notes/Report: Creatinine Urine 102.44 Microalbumin Urine 27.0 Microalbum/Creatinine Ratio Ur 26.3 <30 ug/mg cr Albumin/Creatinine Ratio Reference Ranges: Normal: < 30 ug/mg creatinine Microalbuminuria: 30 - 300 ug/mg creatinine Clinical Albuminuria: > 300 ug/mg creatinine Hemoglobin A1c Reviewed date:09/22/2024 12:32:41 PM Interpretation: Performing Lab:[address] [address] Notes/Report: Hemoglobin A1c % 7.0 <6.0 % [...] average glucose, using the formula of the G0H-Sffauur Average Glucose study (ADAG), Diabetes Care, Vol.31,#8, Oct. 2007 UA ClnCatch+Micro w/rflx Cul t Reviewed date:09/22/2024 12:46:13 PM Interpretation: Performing Lab:[address] [address] Notes/Report: Urine, Clean Catch Color Urine Yellow Appearance Urine Turbid PH 5.5 5.0-9.0 Glucose Urine UA Negative Negative mg/dL Urine Blood Negative Negative Specific Rosalia - Urine 1.015 1.005-1.025 Urine Protein Negative Neg-Trace mg/dL Urine Ketones Negative Negative mg/dL Nitrite Urine Negative Negative Leukocyte Esterase Urine Negative Negative RBC Urine 0-2 0-2 /HPF WBC Urine 0-5 0-5 /HPF Squamous Epithelial Cell Urine 0-2 0-2 /HPF Bacteria Urine None Seen None Seen Hyaline Casts Urine 0-2 0-2 /LPF Prothrombin Time INR Reviewed date:10/08/2024 05:01:25 PM Interpretation: Performing Lab:[facility], [address] [place] [phone] Notes/Report: Prothrombin Time 28.8 10.9-12.4 SEC INTERNATIONAL [...] INR Reviewed date:10/20/2024 12:40:33 PM Interpretation: Performing Lab:[facility], [address] [place] [phone] Notes/Report: Prothrombin Time 32.9 10.9-12.4 SEC INTERNATIONAL [...] INR Reviewed date:11/03/2024 12:50:48 PM Interpretation: Performing Lab:[facility], [address] [place] [phone] Notes/Report: Prothrombin Time 31.6 10.9-12.4 SEC INTERNATIONAL [...] INR Reviewed date:11/17/2024 12:36:36 PM Interpretation: Performing Lab:[facility], [address] [place] [phone] Notes/Report: Prothrombin Time 30.7 10.9-12.4 SEC INTERNATIONAL [...] INR Reviewed date:12/01/2024 12:22:34 PM Interpretation: Performing Lab:[facility], [address] [place] [phone] Notes/Report: Prothrombin Time 38.8 10.9-12.4 SEC INTERNATIONAL [...] INR Reviewed date:12/17/2024 12:31:54 PM Interpretation: Performing Lab:[facility], [address] [place] [phone] Notes/Report: Prothrombin Time 31.6 10.9-12.4 SEC INTERNATIONAL [...] INR Reviewed date:12/29/2024 12:34:34 PM Interpretation: Performing Lab:[facility], [address] [place] [phone] Notes/Report: Prothrombin Time 27.0 10.9-12.4 SEC INTERNATIONAL [...] INR Reviewed date:01/12/2025 10:51:15 AM Interpretation: Performing Lab:[facility], [address] [place] [phone] Notes/Report: Prothrombin Time 28.6 10.9-12.4 SEC INTERNATIONAL [...] INR Reviewed date:02/02/2025 12:41:44 PM Interpretation: Performing Lab:[facility], [address] [place] [phone] Notes/Report: Prothrombin Time 36.2 11.2-13.5 SEC INTERNATIONAL [...] INR Reviewed date:02/18/2025 12:27:45 PM Interpretation: Performing Lab:[facility], [address] [place] [phone] Notes/Report: Prothrombin Time 40.8 11.2-13.5 SEC INTERNATIONAL [...] 2.5 - 3.5 Prothrombin Time INR Reviewed date:03/02/2025 11:06:47 AM Interpretation: Performing Lab:[facility], [address] [place] [phone] Notes/Report: Prothrombin Time 33.9 11.2-13.5 SEC INTERNATIONAL [...] Panel Reviewed date:03/17/2024 04:35:59 PM Interpretation: Performing Lab:[facility], [address] [place] [phone] Notes/Report: Triglycerides 207 <150 mg/dL Desirable Triglyceride: [...] A1c Reviewed date:03/15/2024 04:56:43 PM Interpretation: Performing Lab:[facility], [address] [place] [phone] Notes/Report: Hemoglobin A1c % 7.2 <6.0 % [...] average glucose, using the formula of the P8C-Yxjsgqa Average Glucose study (ADAG), Diabetes Care, Vol.31,#8, 2007 Glucose, Whole Blood Reviewed date:03/17/2024 04:28:32 PM Interpretation: Performing Lab:[facility], [address] [place] [phone] Notes/Report: Glucose, Whole Blood 170 60-115 mg/dL METER #: [id number] Testing performed in the [facility], [facility]. Hold Red Reviewed date:04/02/2024 05:17:01 PM Interpretation: Performing Lab:[facility], [address] [place] [phone] Notes/Report: Hold Red See Note Specimen held untested for 24 hours; Call to request Chemistry testing. Glucose, Whole Blood Reviewed date:08/11/2024 11:12:03 AM Interpretation: Performing Lab:[facility], [address] [place] [phone] Notes/Report: Glucose, Whole Blood 134 60-115 mg/dL METER #: [id number] Testing performed in the [facility] , [address], [facility]. Complete Blood Count Auto Di ff Reviewed date:09/15/2024 04:47:15 PM Interpretation: Performing Lab:[facility], [address] [place] [phone] Notes/Report: White Blood Count 10.6 4.8-10.8 X10*3/uL [...] INR Reviewed date:09/15/2024 12:34:11 PM Interpretation: Performing Lab:[facility], [address] [place] [phone] Notes/Report: Prothrombin Time 22.1 10.9-12.4 SEC INTERNATIONAL [...] Panel Reviewed date:09/15/2024 12:40:51 PM Interpretation: Performing Lab:[facility], [address] [place] [phone] Notes/Report: Sodium 141 135-145 mmol/L Potassium 4.5 [...] date:09/14/2024 01:32:53 PM Interpretation: Performing Lab: Notes/Report: [address] [address] [address] Scan Report Signed Patient: Kristina Rodriguez MR#: [id number] : 1945 Acct:[id number] Age/Sex: 78 / M ADM Date: 09/13/24 Loc: .ED Attending Dr: Ordering Physician: Liz Levin Date of Service: 09/13/24 Procedure(s): CT cervical spine wo IV con Accession Number(s): [id number] cc: Brody Goldberg MD; Liz Levin Report Number: [id number]: Total DLP = 503.00 mGy-cm CLINICAL HISTORY: [...] in OV> 09/13/241813 DD/ 12 TD/TT: 09/13/241812 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 Setter: [place] [address] CT Scan Report Signed Patient: Kristina Rodriguez MR#: [id number] : 1945 Acct:[id number] Age/Sex: 78 / M ADM Date: 09/13/24 Loc: .ED Attending Dr: Ordering Physician: Liz Levin Date of Service: 09/13/24 Procedure(s): CT cervical spine wo IV con Accession Number(s): [id number] cc: Brody Goldberg MD; Liz Levin Report Number: [id number]: Total DLP = 503.00 mGy-cm CLINICAL HISTORY: [...] in OV> 09/13/241813 DD/ 12 TD/TT: 09/13/241812 Ornament Setter: CT head/brain wo con Reviewed date:10/08/2024 01:13:57 PM Interpretation:10-08-2024 Performing Lab: Notes/Report: [address] [address] [address] Scan Report Signed Patient: Kristina Rodriguez MR#: [id number] : 1945 Acct:[id number] Age/Sex: 78 / M ADM Date: 09/13/24 Loc: HO.ED Attending Dr: Ordering Physician: Liz Levin Date of Service: 09/13/24 Procedure(s): CT head/brain wo IV con Accession Number(s): [id number] cc: Brody Goldberg MD; Liz Levin Report Number: [id number]: Total DLP = 840.00 mGy-cm CLINICAL HISTORY: [...] in OV> 09/13/241807 DD/ 06 TD/TT: 09/13/241806 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 Setter: [address] [address] [address] Scan Report Signed Patient: Kristina Rodriguez MR#: [id number] : 1945 Acct:[id number] Age/Sex: 78 / M ADM Date: 09/13/24 Loc: HO.ED Attending Dr: Ordering Physician: Liz Levin Date of Service: 09/13/24 Procedure(s): CT head/brain wo IV con Accession Number(s): [id number] cc: Brody Goldberg MD; Liz Levin Report Number: [id number]: Total DLP = 840.00 mGy-cm CLINICAL HISTORY: [...] in OV> 09/13/241807 DD/ 06 TD/TT: 09/13/241806 Ornament Setter: SLIDE REVIEW Reviewed date:09/22/2024 12:30:18 PM Interpretation: Performing Lab:[facility], [address] [place] [phone] Notes/Report: SLIDE REVIEW VERIFIED Reason For Referral No Information Medications Medication SIG (Take, Route, Frequency, Duration) Notes Start Date End Date Status Warfarin Sodium 5 MG ALTERNATING BETWEEN TAKING 1.5 TABLETS BY MOUTH EVERY DAY AND 2 TABLETS EVERY DAY DIRECTED Active PARoxetine HCl 20 MG TAKE 1 TABLET BY RI UT EVERY MORNING for 90 Active HumaLOG KwikPen 100 UNIT/ML 8 units three times a day Active Pravastatin Sodium 40 MG 1 tablet Orally Once a day Active Lantus SoloStar 100 UNIT/ML 26 units Qpm once a day Acti ve Diprolene AF 0.05 % 1 application Wet Primer Powder Blender ally Once a day for 30 days [...] day(s) Not-Taking Mupirocin 2 % 1 application Wet Primer Powder Blender ally Twice a day for 5 day(s) [...] Risk Notes Problem Ventricular premature complex (disorder) (104913695) PVC (premature ventricular contraction) (I49.3) Active confirmed Problem 395732467 Thrombocytopenia (D69.6) Active confirmed Problem 500505931 Tubular adenoma (D36.9) Active confirmed Problem 41681511 Nevus (D22.9) Active confirmed Problem Mixed hyperlipidemia (111977715) Mixed hyperlipidemia (E78.2) Active confirmed Problem Paroxysmal atrial fibrillation (683667739) Paroxysmal atrial fibrillation (I48.0) Active confirmed Problem 8500804 Primary insomnia (F51.01) Active confirmed Problem 66808918 Lumbar disc disease (M51.9) Active confirmed Problem 63611234 Essential hypertension (I10) Active confirmed Problem Long-term current use of anticoagulant (676091754) MCFP current use of anticoagulant (Z79.01) Active confirmed Problem Long-term current use of anticoagulant (310998987) 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 (Z79.01) Active confirmed Problem 68637400 Type 2 diabetes mellitus with 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) Active confirmed Problem 763719405 Acute systolic congestive heart failure (I50.21) Active confirmed Problem Pressure injury (morphologic abnormality) (9866016662) Pressure sore (L89.90) Active confirmed Problem Long-term current use of anticoagulant (663795369) Encounter for current long-term use of anticoagulants (Z79.01) Active confirmed Problem 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) Abnormal platelets (D69.1) Active confirmed Problem 979666631 Temporary low platelet count (D69.6) Active confirmed Problem Benign neoplasm of cerebral meninges (91839671) Meningioma (D32.9) Active confirmed Problem 960885800 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 Problem 63790196 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) Active confirmed Problem 85686120374122043 Pressure injur y of sacral region, unstageable (L89.150) Active confirmed Vital Signs Blood pressure diastolic 62 mm Hg 10/08/2024 Height 73.5 in 10/08/2024 Blood pressure systolic 112 mm Hg 10/08/2024 Weight 256 lbs 10/08/2024 BMI 33.31 kg/m2 10/08/2024 Encounters Encounter Location Date Provider Diagnosis Brody Goldberg MD [address] [id number] 03/12/2024 Brody Bombardier Paroxysmal atrial fibrillation I48.0 and 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 current use of anticoagulant Z79.01 Brody Goldberg MD [address] [place] [address] [id number] 03/24/2024 Brody Bombardier Paroxysmal atrial fibrillation I48.0 and MCFP current use of anticoagulant therapy Z79.01 Brody Goldberg MD [address] [place] [address] [id number] 04/02/2024 Brody Bombardier Mixed hyperlipidemia E78.2 and 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 Brody Goldberg MD [address] [place] [address] [id number] 04/09/2024 Brody Bombardier Paroxysmal atrial fibrillation I48.0 and Encounter for current long-term use of anticoagulants Z79.01 Brody Goldberg MD [address] [place] [address] [id number] 06/30/2024 Brody Bombardier Paroxysmal atrial fibrillation I48.0 and Encounter for current long-term use of anticoagulants Z79.01 Brody Goldberg MD [address] [place] [address] [id number] 07/14/2024 Brody Bombardier Paroxysmal atrial fibrillation I48.0 and Encounter for current long-term use of anticoagulants Z79.01 Brody Goldberg MD [address] [place] [id number] 07/28/2024 Brody Bombardier Paroxysmal atrial fibrillation I48.0 and Encounter for current long-term use of anticoagulants Z79.01 Brody Goldberg MD [address] [place] [id number] 08/11/2024 Brody Bombardier Paroxysmal atrial fibrillation I48.0 and Encounter for current long-term use of anticoagulants Z79.01 Brody Goldberg MD [address] [place] [address] [id number] 08/25/2024 Brody Bombardier Paroxysmal atrial fibrillation I48.0 and Encounter for current long-term use of anticoagulants Z79.01 Brody Goldberg MD [address] [place] [id number] 09/08/2024 Brody Bombardier Paroxysmal atrial fibrillation I48.0 and Encounter for current long-term use of anticoagulants Z79.01 Brody Goldberg MD [address] [place] [id number] 09/22/2024 Brodydebbi Goldberg Mixed hyperlipidemia E78.2 ; 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 ; Thrombocytopenia D69.6 and Acute systolic congestive heart failure I50.21 Brody Goldberg MD [address] [place] [id number] 10/08/2024 Brody Bombardier Paroxysmal atrial fibrillation I48.0 and Encounter for current long-term use of anticoagulants Z79.01 Brody Goldberg MD [address] [place] [id number] 10/20/2024 Brody Bombardier Paroxysmal atrial fibrillation I48.0 and Encounter for current long-term use of anticoagulants Z79.01 Brody Goldberg MD [address] [place] [address] [id number] 11/03/2024 Brody Goldberg Encounter for curren t long-term use of anticoagulants Z79.01 and Paroxysmal atrial fibrillation I48.0 Brody Goldberg MD [address] [place] [id number] 11/17/2024 Brodydebbi Velaardier Paroxysmal atrial fibrillation I48.0 ; Encounter for administration of vaccine Z23 and 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 Z79.01 Brody Goldberg MD [address] [place] [id number] 12/01/2024 Brody Bombardier Paroxysmal atrial fibrillation I48.0 and Encounter for current long-term use of anticoagulants Z79.01 Brody Goldberg MD [address] [place] [id number] 12/17/2024 Brody Bombardier Paroxysmal atrial fibrillation I48.0 and Encounter for current long-term use of anticoagulants Z79.01 Brody Goldberg MD [address] [place] [address] [id number] 12/29/2024 Brody Bombardier Paroxysmal atrial fibrillation I48.0 and Encounter for current long-term use of anticoagulants Z79.01 Brody Goldberg MD [address] [place] [address] [id number] 01/12/2025 Brody Bombardier Paroxysmal atrial fibrillation I48.0 and Encounter for current long-term use of anticoagulants Z79.01 Brody Goldberg MD [address] [place] [address] [id number] 02/02/2025 Brody Bombardier Paroxysmal atrial fibrillation I48.0 and Encounter for current long-term use of anticoagulants Z79.01 Brody Goldberg MD [address] [place] [address] [id number] 02/18/2025 Brody Goldberg MCFP current us e of anticoagulant Z79.01 and Paroxysmal atrial fibrillation I48.0 Brody Goldberg MD [address] [place] [address] [id number] 03/02/2025 Brody Bombardier Paroxysmal atrial fibrillation I48.0 and Encounter for current long-term use of anticoagulants Z79.01 Bordy Goldberg MD [address] [place] [id number] 04/09/2024 Brody Bombardier Paroxysmal atrial fibrillation I48.0 ; 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 ; Pressure injury of sacral region, 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 and Mixed hyperlipidemia E78.2 Brody Goldberg MD [address] [place] [id number] 10/08/2024 Brody Bombardier Meningioma D32.9 ; Paroxysmal atrial fibrillation I48.0 ; 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 ; PVC (premature ventricular contraction) I49.3 ; Essential hypertension I10 ; Mixed hyperlipidemia E78.2 and Acute systolic congestive heart failure I50.21 Brody Goldberg MD [address] [place] [address] [id number] 03/24/2024 Brody Goldberg Pressure sore L89.90 Brody Goldberg MD [address] [place] [id number] 06/18/2024 Brody Goldberg MD [address] [place] [address] [id number] 09/14/2024 Brody Goldberg MD [address] [place] [address] [id number] 06/05/2024 Brody Goldberg MD [address] [place] [address] [id number] 12/15/2024 Brody Goldberg MD [address] [place] [address] [id number] 12/31/2024 Brody Goldberg MD [address] [place] [address] [id number] 01/25/2025 Brody Goldberg Assessments Encounter Date Diagnosis (ICD Code) Assessment Notes Treatment Notes Treatment Clinical Notes Section Notes 03/12/2024 Paroxysmal atrial fibrillation (ICD-10 - I48.0) 03/12/2024 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 current 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 of anticoagulant (ICD-10 - Z79.01) 03/24/2024 Paroxysmal atrial fibrillation (ICD-10 - I48.0) 03/24/2024 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 (ICD-10 [...] Paroxysmal atrial fibrillation (ICD-10 - I48.0) 02/18/2025 MCFP current use of anticoagulant (ICD-10 - Z79.01) 03/02/2025 Paroxysmal atrial fibrillation (ICD-10 - I48.0) 04/09/2024 [...] last note from dr hernandez neurosurgery at [facility] 10/08/2024 Paroxysmal atrial fibrillation (ICD-10 - [...] atrial fibrillation (ICD-10 - I48.0) 11/17/2024 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 09/22/2024 Acute systolic congestive [...] CONTRAST 12/08/2012 Next Appt Details Provider Name:Brody Velacitlaly velarde, 04/09/2025 08:15:00 AM, [address] [place] [address], [address], [phone], Provider Name:Brody velarde, 04/16/2025 09:00:00 AM, [address] [place] [address], [address], [phone], Provider Name:Brody Samir Kati reyesr, 10/04/2025 08:00:00 AM, [address] [place] [address], [address], [phone], Provider Name:Brody Samir Kati reyesr, 10/11/2025 08:30:00 AM, [address] [place] [address], [address], [phone], Insurance Providers Payer Name Payer Address Payer Phone Subscriber Number Group Number Insured Name Patient Relationship to Insured Coverage Start Date Coverage End Date MEDICARE NHIC [place] [place] [address] [id number] Kristina Rodriguez Self - patient is the insured 3 [employer] BCBS OF [employer] [address] [place] [phone] [id number] Kristina Rodriguez Self - patient is the [...]
== END 2025-03-02 10:43 | disposition home or self-care (01) ==
LOC: HO.LNP 10:42
PROVIDERS: Visit Provider Internal Medicine
DX: I48.0 Paroxysmal atrial fibrillation (principal); Z79.01 Long term (current) use of anticoagulants
CPT/HCPCS: 85610

== ENCOUNTER 2025-03-15 12:51 | Outpatient (AMB) | payer MEDICARE, SELFPAY ==
--- OUTSIDE RECORDS SUMMARY | 2020-07-28 10:05 | XMS_ITS | Encounter Summary ---
Author Organization [facility] Address [address] [facility] [address] [place] [address] Phone Care Team Providers Care Chief Supply Chain Officer Name Role Phone Brody Goldberg MD Primary Care Provider Encounter Details Date Type Department Care Team (Late st Contact Info) Description 07/28/2020 11:05 AM EDT Hospital Encounter [facility] [address] [place] [phone] Luis Manuel Cabello PA [address] [place] [phone] [email or web address] g Social History Tobacco Use Types Packs/Day [...] on filedocumented in this encounter Care Teams Chief Supply Chain Officer Relationship Specialty Start Date End Date Brody Goldberg MD [address] [place] [address] [place] [address] PCP - General Internal Medicine 07/28/20 documented as of this encounter Additional Source Comments The information contained in this document represents components of the legal health record. It is not the complete legal health record.[facility]
--- OUTSIDE RECORDS SUMMARY | 2024-12-01 03:45 | XMS_ITS ---
Author Organization Brody Goldberg MD Address [address] [place] [phone] Care Team Providers Care Security Orderly Name Role Phone Brody Goldberg Primary Care Provider Results Component Value Reference Range Notes Prothrombin Time INR Reviewed date:12/01/2024 12:22:34 PM Interpretation: Performing Lab:[facility], [address] [place] [phone] Notes/Report: Prothrombin Time 38.8 10.9-12.4 SEC INTERNATIONAL NORM RATIO 3.4 0.9-1.1 INTERNATIONAL NORMALIZED RATIO (INR) REFERENCE RANGES [...] Goldberg MD [address] [place] [phone] 12/01/2024 Brody Goldberg Paroxysmal atrial fibrillation I48.0 and Encounter for current long-term use of anticoagulants Z79.01 Assessments Encounter Date Diagnosis (ICD Code) Assessment Notes Treatment Notes Treatment Clinical Notes Section Notes 12/01/2024 Paroxysmal atrial fibrillation (ICD-10 - I48.0) 12/01/2024 Encounter for current long-term use of anticoagulants (ICD-10 - Z79.01) Plan Of Treatment Next Appt Details Provider Name:Brody Parikh ier, 03/16/2025 09:00:00 AM, [address], Suite [facility], [place], [place], [phone], Provider Name:Brody Parikh ier, 04/09/2025 08:15:00 AM, [address], Suite [facility], [place], [place], [phone], Provider Name:Brody Parikh ier, 04/16/2025 09:00:00 AM, [address] [place] [address], Suite [facility], [place], [place], [phone], Provider Name:Brody Parikh ier, 10/04/2025 08:00:00 AM, [address] [place] [address], Suite [facility], [place], [place], [phone], Provider Name:Brody Parikh ier, 10/11/2025 08:30:00 AM, [address] [place] [address], Suite [facility], [place], [place], [phone], Progress Notes * Jayy RODRIGUEZ LDOB:1945 ([age] yo M)Acc No.[id number]:12/01/2024 Progress Note Patient: Jayy ANDRADE Provider: Breezy Goldberg MD :1945 A ge:79 Y S ex:Male Date:12/01/2024 Address:[address] [place], [place] [phone] Subjective: * Chief Complaints: * 1 . INR. * Medical History: Objective: * Vitals: Assessment: * Assessment: 1. P aroxysmal atrial fibrillation - I48.0 (Primary) 2 . E ncounter for current long-term use of anticoagulants - Z79.01 Plan: * Treatment: 2. E ncounter for current long-term use of anticoagulants L AB: Prothrombin Time INR (Collection Date & Time - 12/01/2024 10:37 AM) * Procedure Codes: 3 6415 VENIPUNCT, ROUTINE* * * The named appointment provid er may or may not be the originator of this progress note, and it is not deemed complete until electronically signed by the appointment provider. Sign off status: Pending * Provider: rBeezy Goldberg MD Date: 0 12/01/2024 Generated for Doron granados/Quang/Kyitting on: 1 02:44 PM EST
--- OUTSIDE RECORDS SUMMARY | 2024-12-15 02:03 | XMS_ITS ---
Author Organization Brody Goldberg MD Address 10 [facility] [address] [place] [address] [phone] Care Team Providers Care Workers Compensation Claims Examiner Name Role Phone Brody Goldberg Primary Care Provider REASON FOR VISIT Yovanny Rodriguez PT-INR Encounters Encounter Location Date Provider Diagnosis Brody Goldberg MD [address] [place] [address] [place] [address] [phone] 12/15/2024 Brody Goldberg Plan Of Treatment Next Appt Details Provider Name:Brody velarde, 03/16/2025 09:00:00 AM, [address] [place] [address], [address], [phone], Provider Name:Brody Parikh ier, 04/09/2025 08:15:00 AM, [address] [place] [address], [address], [phone], Provider Name:Brody velarde, 04/16/2025 09:00:00 AM, [address] [place] [address], [phone], Provider Name:Brody velarde, 10/04/2025 08:00:00 AM, [address] [place] [address], [phone], Provider Name:Brody Velacitlaly syd, 10/11/2025 08:30:00 AM, [address] [facility] [address], [address], [place], [place], [phone], Progress Notes * Jayy RODRIGUEZ LDOB:1945 ([age] yo M)Acc No.[id number]:12/15/2024 Patient: Lloyd MAURICEJayy :1945 A ge:79 Y S ex:Male Address:[address] [place] [phone] * true * Date: Generated for Doron granados/Quang/Kyitting on: 02:45 PM EST
--- OUTSIDE RECORDS SUMMARY | 2024-12-17 04:15 | XMS_ITS ---
Author Organization Brody Goldberg MD Address [address] [place] [address] [phone] Care Team Providers Care Wall Taper Helper Name Role Phone Brody Goldberg Primary Care Provider Results Component Value Reference Range Notes Prothrombin Time INR Reviewed date:12/17/2024 12:31:54 PM Interpretation: Performing Lab:[facility], [address] [place] [phone] Notes/Report: Prothrombin Time 31.6 10.9-12.4 SEC INTERNATIONAL [...] Brody Goldberg MD [address] [place] [address] [phone] 12/17/2024 Brody Goldberg Paroxysmal atrial fibrillation I48.0 and Encounter for current long-term use of anticoagulants Z79.01 Assessments Encounter Date Diagnosis (ICD Code) Assessment Notes Treatment Notes Treatment Clinical Notes Section Notes 12/17/2024 Paroxysmal atrial fibrillation (ICD-10 - I48.0) 12/17/2024 Encounter for current long-term use of anticoagulants (ICD-10 - Z79.01) Plan Of Treatment Next Appt Details Provider Name:Brody Parikh ericr, 03/16/2025 09:00:00 AM, [address] [facility], Suite [facility], [place], [place], [phone], Provider Name:Brody Parikh ier, 04/09/2025 08:15:00 AM, [address] [place] [address], Suite [facility], [place], [place], [phone], Provider Name:Brody Parikh ier, 04/16/2025 09:00:00 AM, [address] [place] [address], Suite [facility], [place], [place], [phone], Provider Name:Brody Parikh ier, 10/04/2025 08:00:00 AM, [address] [place] [address], Suite [facility], [place], [place], [phone], Provider Name:Brody Parikh ier, 10/11/2025 08:30:00 AM, [address] [place] [address], Suite [facility], [place], [place], [phone], Progress Notes * Jayy RODRIGUEZ LDOB:1945 ([age] yo M)Acc No.[id number]:12/17/2024 Progress Note Patient: Jayy ANDRADE Provider: Breezy Goldberg MD :1945 A ge:79 Y S ex:Male Date:12/17/2024 Address:[address] [place], [place] [phone] Subjective: * Chief Complaints: * 1 . [...] Goldberg MD Date: 1 Generated for Doron granados/Quang/Kyitting on: 1 02:44 PM EST
--- OUTSIDE RECORDS SUMMARY | 2024-12-29 03:15 | XMS_ITS ---
Author Organization Brody Goldberg MD Address [address] [place] [phone] Care Team Providers Care Solvent Station Attendant Name Role Phone Brody Goldberg Primary Care Provider Results Component Value Reference Range Notes Prothrombin Time INR Reviewed date:12/29/2024 12:34:34 PM Interpretation: Performing Lab:[facility], [address] [place] [phone] Notes/Report: Prothrombin Time 27.0 10.9-12.4 SEC INTERNATIONAL [...] Brody Goldberg MD [address] [place] [phone] 12/29/2024 Brody Goldberg Paroxysmal atrial fibrillation I48.0 and Encounter for current long-term use of anticoagulants Z79.01 Assessments Encounter Date Diagnosis (ICD Code) Assessment Notes Treatment Notes Treatment Clinical Notes Section Notes 12/29/2024 Paroxysmal atrial fibrillation (ICD-10 - I48.0) 12/29/2024 Encounter for current long-term use of anticoagulants (ICD-10 - Z79.01) Plan Of Treatment Next Appt Details Provider Name:Brody Parikh ericr, 03/16/2025 09:00:00 AM, [facility], Suite [facility], [place], [place], [phone], Provider Name:Brody Parikh ier, 04/09/2025 08:15:00 AM, [address] [place] [address], [address] [facility], [place], [place], [phone], Provider Name:Brody Parikh ier, 04/16/2025 09:00:00 AM, [address] [place] [address], [address] [facility], [place], [place], [phone], Provider Name:Brody Parikh ier, 10/04/2025 08:00:00 AM, [address] [place] [address], [address] [facility], [place], [place], [phone], Provider Name:Brody Parikh ier, 10/11/2025 08:30:00 AM, [address] [place] [address], [address] [facility], [place], [place], [phone], Progress Notes * Jayy RODRIGUEZ LDOB:1945 ([age] yo M)Acc No.[id number]:12/29/2024 Progress Note Patient: Jayy ANDRADE Provider: Breezy Goldberg MD :1945 A ge:79 Y S ex:Male Date:12/29/2024 Address:[address] [place], [place] [phone] Subjective: * Chief Complaints: * 1 . [...] 1 Generated for Doron granados/Quang/Kyitting on: 1 02:45 PM EST
--- OUTSIDE RECORDS SUMMARY | 2024-12-31 09:30 | XMS_ITS ---
Author Organization Brody Goldberg MD Address 10 [facility] [address] [place] [phone] Care Team Providers Care Timber Management Professor Name Role Phone Brody Goldberg Primary Care Provider REASON FOR VISIT New Refill Request Medications Medication SIG (Take, Route, Fr equency, Duration) Notes Start Date End Date Status PARoxetine HCl 20 MG TAKE 1 TABLET BY MO UTH EVERY MORNING for 90 Active Encounters Encounter Location Date Provider Diagnosis Brody Goldberg MD 10 [facility] [address] [place] [phone] 12/31/2024 Brody Goldberg Plan Of Treatment Medication Medication Name Sig Start Date Stop Date Notes PARoxetine HCl 20 MG TAKE 1 TABLET BY MO UTH EVERY MORNING for 90 Next Appt Details Provider Name:Brody velarde, 03/16/2025 09:00:00 AM, [address] [place] [address], [address], [phone], Provider Name:Brody velarde, 04/09/2025 08:15:00 AM, [address] [place] [address], [address], [phone], Provider Name:Brody velarde, 04/16/2025 09:00:00 AM, [address] [place] [address], [address], [phone], Provider Name:Brody Parikh ier, 10/04/2025 08:00:00 AM, [address] [facility] [address], [address], [place], [phone], Provider Name:Brody Parikh ier, 10/11/2025 08:30:00 AM, [address] [facility], [address], [place], [phone], Progress Notes * Jayy RODRIGUEZ LDOB:1945 ([age] yo M)Acc No.[id number]:12/31/2024 Patient: Lloyd RICHARDSJayy :1945 A ge:79 Y S ex:Male Address:[address] [place] [address] * Refills Refill PARoxetine HCl Tablet, 20 MG, 90 Tablet, TAKE 1 TABLET BY MOUTH EVERY MORNING, 90, Refills=3 * true * Date: Generated for Doron granados/Quang/Yismitting on: 1 02:45 PM EST
--- OUTSIDE RECORDS SUMMARY | 2025-01-12 03:30 | XMS_ITS ---
Author Organization Brody Goldberg MD Address [address] [place] [phone] Care Team Providers Care Truckload Owner Operator Name Role Phone Brody Goldberg Primary Care Provider [phone] Results Component Value Reference Range Notes Prothrombin Time INR Reviewed date:01/12/2025 10:51:15 AM Interpretation: Performing Lab:[facility], [address] [place] [phone] Notes/Report: Prothrombin Time 28.6 10.9-12.4 SEC INTERNATIONAL [...] Goldberg MD [address] [place] [phone] 01/12/2025 Brody Goldberg Paroxysmal atrial fibrillation I48.0 and Encounter for current long-term use of anticoagulants Z79.01 Assessments Encounter Date Diagnosis (ICD Code) Assessment Notes Treatment Notes Treatment Clinical Notes Section Notes 01/12/2025 Paroxysmal atrial fibrillation (ICD-10 - I48.0) 01/12/2025 Encounter for current long-term use of anticoagulants (ICD-10 - Z79.01) Plan Of Treatment Next Appt Details Provider Name:Brody Parikh ericr, 03/16/2025 09:00:00 AM, 10 [facility], Suite [facility], [place], [place], [phone], Provider Name:Brody Parikh ier, 04/09/2025 08:15:00 AM, [address] [place] [address] Drive, Suite [facility], [place], [place], [phone], Provider Name:Brody Parikh ier, 04/16/2025 09:00:00 AM, [address] [place] [address], Suite [facility], [place], [place], [phone], Provider Name:Brody Parikh ier, 10/04/2025 08:00:00 AM, [address] [place] [address], Suite [facility], [place], [place], [phone], Provider Name:Brody Parikh ier, 10/11/2025 08:30:00 AM, [address] [place] [address], Suite [facility], [place], [place], [phone], Progress Notes * Jayy RODRIGUEZ LDOB:1945 ([age] yo M)Acc No.[id number]:01/12/2025 Progress Note Patient: Jayy ANDRADE Provider: Breezy Goldberg MD :1945 A ge:79 Y S ex:Male Date:01/12/2025 Address:[address] [place], [place] [phone] Subjective: * Chief Complaints: * 1 . [...] 1 Generated for Doron granados/Quang/Kyitting on: 1 02:46 PM EST
--- OUTSIDE RECORDS SUMMARY | 2025-01-25 00:21 | XMS_ITS ---
Author Organization Brody Goldberg MD Address 10 [facility] [address] [place] [phone] Care Team Providers Care Body Stylist Name Role Phone Brody Goldberg Primary Care Provider REASON FOR VISIT PT-INR Encounters Encounter Location Date Provider Diagnosis Brody Goldberg MD [address] [place] [address] [place] [phone] 01/25/2025 Brody Goldberg Plan Of Treatment Next Appt Details Provider Name:Brody velarde, 03/16/2025 09:00:00 AM, [address] [place] [address], [address], [phone], Provider Name:Brody Parikh ier, 04/09/2025 08:15:00 AM, [address] [place] [address], [address], [phone], Provider Name:Brody reyesr, 04/16/2025 09:00:00 AM, [address] [place] [address], [phone], Provider Name:Brody velarde, 10/04/2025 08:00:00 AM, [address] [place] [address], [phone], Provider Name:Brody velarde, 10/11/2025 08:30:00 AM, [address] [facility] [address], [address], [place], [place], [phone], Progress Notes * Jayy RODRIGUEZ LDOB:1945 ([age] yo M)Acc No.[id number]:01/25/2025 Patient: Jayy ANDRADE :1945 A ge:79 Y S ex:Male Address:[address] [place] [phone] * true * Date: Generated for Doron granados/Quang/Yismitting on: 02:46 PM EST
--- OUTSIDE RECORDS SUMMARY | 2025-02-02 04:00 | XMS_ITS ---
Author Organization Brody Goldberg MD Address [address] [place] [phone] Care Team Providers Care Industrial Photographer Name Role Phone Brody Goldberg Primary Care Provider Results Component Value Reference Range Notes Prothrombin Time INR Reviewed date:02/02/2025 12:41:44 PM Interpretation: Performing Lab:[facility], [address] [place] [phone] Notes/Report: Prothrombin Time 36.2 11.2-13.5 SEC INTERNATIONAL [...] Goldberg MD [address] [place] [phone] 02/02/2025 Brody Goldberg Paroxysmal atrial fibrillation I48.0 and Encounter for current long-term use of anticoagulants Z79.01 Assessments Encounter Date Diagnosis (ICD Code) Assessment Notes Treatment Notes Treatment Clinical Notes Section Notes 02/02/2025 Paroxysmal atrial fibrillation (ICD-10 - I48.0) 02/02/2025 Encounter for current long-term use of anticoagulants (ICD-10 - Z79.01) Plan Of Treatment Next Appt Details Provider Name:Brody Parikh ericr, 03/16/2025 09:00:00 AM, [address] [facility], Suite [facility], [place], [place], [phone], Provider Name:Brody Parikh ier, 04/09/2025 08:15:00 AM, [address] [place] [address] Drive, Suite [facility], [place], [place], [phone], Provider Name:Brody Parikh ier, 04/16/2025 09:00:00 AM, [address] [place] [address], Suite [facility], [place], [place], [phone], Provider Name:Brody Parikh ier, 10/04/2025 08:00:00 AM, [address] [place] [address], Suite [facility], [place], [place], [phone], Provider Name:Brody Parikh ier, 10/11/2025 08:30:00 AM, [address] [place] [address], Suite [facility], [place], [place], [phone], Progress Notes * Jayy RODRIGUEZ LDOB:1945 ([age] yo M)Acc No.[id number]:02/02/2025 Progress Note Patient: Jayy ANDRADE Provider: Breezy Goldberg MD :1945 A ge:79 Y S ex:Male Date:02/02/2025 Address:[address] [place], [place] [phone] Subjective: * Chief Complaints: * 1 . [...] * Provider: Breezy Goldberg MD Date: 1 04/04/2024 Generated for Doron granados/Quang/Kyitting on: 02:45 PM EST
--- OUTSIDE RECORDS SUMMARY | 2025-02-18 03:45 | XMS_ITS ---
Author Organization Brody Goldberg MD Address [address] [place] [phone] Care Team Providers Care Plumbing Warehouse Helper Name Role Phone Brody Goldberg Primary Care Provider Results Component Value Reference Range Notes Prothrombin Time INR Reviewed date:02/18/2025 12:27:45 PM Interpretation: Performing Lab:[facility], [address] [place] [phone] Notes/Report: Prothrombin Time 40.8 11.2-13.5 SEC INTERNATIONAL [...] Goldberg MD [address] [place] [phone] 02/18/2025 Brody Goldberg senior care current us e of anticoagulant Z79.01 and Paroxysmal atrial fibrillation I48.0 Assessments Encounter Date Diagnosis (ICD Code) Assessment Notes Treatment Notes Treatment Clinical Notes Section Notes 02/18/2025 senior care current use of anticoagulant (ICD-10 - Z79.01) 02/18/2025 Paroxysmal atrial fibrillation (ICD-10 - I48.0) Plan Of Treatment Next Appt Details Provider Name:Brody Parikh reicr, 03/16/2025 09:00:00 AM, [address] [place] [address], Suite [facility], [place], [place], [phone], Provider Name:Brody Parikh ericr, 04/09/2025 08:15:00 AM, [address] [place] [address], Suite [facility], [place], [place], [phone], Provider Name:Brody Parikh ericr, 04/16/2025 09:00:00 AM, [address] [place] [address], Suite [facility], [place], [place], [phone], Provider Name:Brody Parikh ier, 10/04/2025 08:00:00 AM, [address] [place] [address], [place] [address], [place], [place], [phone], Provider Name:Brody Parikh ericr, 10/11/2025 08:30:00 AM, [address] [place] [address], Suite [facility], [place], [place], [phone], Progress Notes * Jayy RODRIGUEZ LDOB:1945 ([age] yo M)Acc No.[id number]:02/18/2025 Progress Note Patient: Jayy ANDRADE Provider: Breezy Goldberg MD :1945 A ge:79 Y S ex:Male Date:02/18/2025 Address:[address] [place], [place] [phone] Subjective: * Chief Complaints: * 1 . [...] Pending * Provider: Breezy Goldberg MD Date: 04/21/2024 Generated for Doron granados/Quang/Pauline on: 02:45 PM EST
--- OUTSIDE RECORDS SUMMARY | 2025-03-02 03:45 | XMS_ITS ---
Author Organization Brody Goldberg MD Address [address] [place] [phone] Care Team Providers Care Business Development Representative Name Role Phone Brody Goldberg Primary Care Provider Results Component Value Reference Range Notes Prothrombin Time INR Reviewed date:03/02/2025 11:06:47 AM Interpretation: Performing Lab:[facility], [address] [place] [phone] Notes/Report: Prothrombin Time 33.9 11.2-13.5 SEC INTERNATIONAL [...] Brody Goldberg MD [address] [place] [phone] 03/02/2025 Brody Goldberg Paroxysmal atrial fibrillation I48.0 [...] Parikh ericr, 03/16/2025 09:00:00 AM, [address], Suite [facility], [place], [place], [phone], Provider Name:Brody Parikh ier, 04/09/2025 08:15:00 AM, [address] [place] [address] Drive, Suite [facility], [place], [place], [phone], Provider Name:Brody Parikh ier, 04/16/2025 09:00:00 AM, [address] [place] [address], Suite [facility], [place], [place], [phone], Provider Name:Brody Parikh ier, 10/04/2025 08:00:00 AM, [address] [place] [address], Suite [facility], [place], [place], [phone], Provider Name:Brody Parikh ier, 10/11/2025 08:30:00 AM, [address] [place] [address], Suite [facility], [place], [place], [phone], Progress Notes * Jayy RODRIGUEZ LDOB:1945 ([age] yo M)Acc No.[id number]:03/02/2025 Progress Note Patient: Jayy ANDRADE Provider: Breezy Goldberg MD :1945 A ge:79 Y S ex:Male Date:03/02/2025 Address:[address] [place], [place] [phone] Subjective: * Chief Complaints: * 1 . [...] MD Date: 1 05/03/2024 Generated for Doron granados/Qaung/Kyitting on: 02:45 PM EST
[2025-03-15 12:53] VITALS: BP 124/52; PULSE 64; O2SAT 97; BMI 33.2
--- NOTE | 2025-03-15 12:53 | MHC.OFFVIS ---
Vital Signs 03/15/25 12:53 Height 6 ft 2 in Weight 258 lb 13.163 oz BMI 33.2 BP 124/52 L Blood Pressure Location Lt brachial Position Sitting Pulse 64 Pulse Source Pulse Oximeter Pulse Oximetry (%) 97 Oxygen Delivery Method Room Air Intake Visit Reasons: DM check up with Ernst. Intake Note: Patient present today for Type 2 Diabetes Mellitus Last Diabetic eye exam: Last exam was in 08/2024 Last Podiatry Visit: Doesn't have one Random Glucose: 143 mg/dl HgA1C: 7.5% Die Press Operator Required: No Accompanied by: Spouse Allergies lisinopril Adverse Reaction (Verified 03/15/25 13:00) Cough metformin Adverse Reaction (Verified 03/15/25 13:00) Diarrhea Medication List - Last Reconciled 03/15/25 by Shayy Freitas PA-C acetaminophen ER (Tylenol Arthritis Pain) 650 mg PO Q12H PRN 30 days atenolol 75 mg PO BID atorvastatin 40 mg PO BEDTIME blood sugar diagnostic (FreeStyle Lite Strips) 4 times a day; blood-glucose meter (FreeStyle Lite Meter kit) As directed blood-glucose,tapper bit,cont (FreeStyle Lindsey 3 [place]) As directed cholecalciferol (vitamin D3) 50 mcg PO DAILY 30 days clotrimazole-betamethasone 1-0.05 % appl topical finasteride 5 mg PO DAILY flu vacc [id number](65yr up)-PF mL IM insulin glargine (Basaglar KwikPen U-100 Insulin) 28 units (0.28 mL) subcut DAILY insulin lispro (Humalog KwikPen (U-100) Insulin) inject 8 units with breakfast, inject 8 units with lunch, inject 12 units with supper plus 2-3 units with pre snack lancets (FreeStyle Lancets) 4x daily losartan-hydrochlorothiazide 100-25 mg 1 tab PO DAILY paroxetine HCl 20 mg PO QAM pen needle, diabetic (BD Ultra-Fine Micro Pen Needle) once daily with insulin pen needle, diabetic (BD Ultra-Fine Micro Pen Needle) 3 tmes daily pen needle, diabetic (Pen Needle) 4x daily pen needle, diabetic (BD Hui 2nd Gen Pen Needle) 4 times daily warfarin 7 mg PO DAILY warfarin 0 mg PO HPI HPI DM check up with Ernst.: Details: Pt is a 79 YO Male with PMHx T2DM, HTN, HLD and pancreatitis who is seen in F/U for T2DM. Endo: Dm- Initially diagnosed with T2DM in 2007. Prior meds Was initially started on treatment with Metformin, but was unable to tolerate this due to GI distress. He trialed Januvia as well as Farxiga, Jardiance and Invokana, but stopped these as they were ineffective. He has a history of gallstone pancreatitis 10 yrs ago , and GLP-1 is contraindicated. Current regimen Basaglar 27 units qHS and Humalog units with 8 BF and lunch , 12 pre dinner -He has not been consistent with the basaglar. struggles taking it before bed. Random POC today: 143 His most recent A1c was 7.5 CGM-90% usage, G mi 7.6%, average glucose 181. Very hyperglycemic 3%, hyperglycemic 47%, in range 50%, 0% hypoglycemia -still has lindsey 3 sensors. finds it all over the place Hypoglycemia- denies, knows how to treat lows CV: Blood pressure today in the office is 124/52. He is currently on atenolol 75 mg b.i.d. furosemide 20 mg daily. Cholesterol is managed with atorvastatin 40 mg. [facility] Medical History Thrombocytopenia Type 2 diabetes mellitus Obesity (BMI 30.0-34.9) Metabolic dysfunction-associated steatotic liver disease (MASLD) Vitamin D deficiency Pancreatitis Afib Lower extremity edema HLD (hyperlipidemia) HTN (hypertension) Surgical History History of Mohs surgery for squamous cell carcinoma of skin Hx of sinus surgery Previous back surgery History of cholecystectomy Family History Father No problems noted. Mother No problems noted. Social History Alcohol intake: never Patient Tobacco Use Status: Never used Tobacco Current occupational status: unemployed Physical Exam Vital Signs: Last Vital Signs Pulse 64 03/15/25 12:53 BP 124/52 L 03/15/25 12:53 Pulse Ox 97 03/15/25 12:53 Oxygen Delivery Method Room Air 03/15/25 12:53 BMI result Body Mass Index 33.2 Const Orientation/consciousness: patient oriented x3 HEENT Ears: hearing grossly normal bilaterally Neck Thyroid: Thyroid normal Lymphatic: no lymphadenopathy noted Resp Auscultation: clear to auscultation bilaterally Cardio Rate: regular rate Rhythm: regular rhythm Heart sounds: S1 normal heart sound present and S2 normal heart sound present Skin General skin exam: no rashes or lesions noted Neuro General: patient oriented x3, gait normal and no focal motor deficits Results AMB Hemoglobin A1c AMB Hemoglobin A1c 7.5 % Last Edit by DAVIN Almaraz on 03/15/25 13:19 Results Reviewed Results Reviewed: Laboratory Last Values Glucose (Clinic) 143 mg/dL (60-115) H 03/15/25 13:02 Laboratory Tests 08/11/24 09/22/24 10:28 09:00 Creatinine 0.98 Estimated GFR > 60 Fasting Glucose 135 H Hgb A1c (Clinic) 6.8 H Hemoglobin A1c % 7.0 H AST 25 ALT 19 Triglycerides 171 H Cholesterol 131 LDL Cholesterol, Calc 60 HDL Cholesterol 37 L Urine Creatinine 102.44 Urine Microalbumin 27.0 Microalb/Creat Ratio 26.3 Assessment & Plan Assessment & Plan (1) Poorly controlled type 2 diabetes mellitus with peripheral neuropathy: Code(s): E11.42 - Type 2 diabetes mellitus with diabetic polyneuropathy; E11.65 - Type 2 diabetes mellitus with hyperglycemia Category: Medical Plan: continue humalog dosing as ordered increase long acting to 30 units in the morning sent in new sensors for lindsey 3+ r/u 3 months or sooner prn Orders: Orders AMB Hemoglobin A1c Today E11.42 - Type 2 diabetes mellitus with diabetic polyneuropathy, Z13.9 - Encounter for screening, unspecified, Z79.4 - ad terminal 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 operator (current) use of insulin Medications: New blood-glucose sensor (FreeStyle Lindsey 3 Plus Sensor device) Use daily As directed to monitor glucose 6 ea 3RF E08.29 - Diabetes mellitus due to underlying condition with other diabetic kidney complication, R80.8 - Other proteinuria, Z79.4 - alf (current) use of insulin blood-glucose sensor (FreeStyle Lindsey 3 Plus Sensor device) Use daily As directed to monitor glucose 6 ea 3RF E08.29 - Diabetes mellitus due to underlying condition with other diabetic kidney complication, R80.8 - Other proteinuria, Z79.4 - ad terminal makeup operator (current) use of insulin Changed From insulin glargine (Basaglar KwikPen U-100 Insulin) 28 units (0.28 mL) subcut DAILY 30 mL 4RF E11.65 - Type 2 diabetes mellitus with hyperglycemia To insulin glargine (Basaglar KwikPen U-100 Insulin) 30 units (0.3 mL) subcut QAM 30 mL 4RF E11.65 - Type 2 diabetes mellitus with hyperglycemia Patient Instructions: continue humalog dosing as ordered increase long acting to 30 units in the morning sent in new sensors Coding Level of Care Code Est Pt Level 4 (04858) Add On Problem Visit Only Diagnoses Poorly controlled type 2 diabetes mellitus with peripheral neuropathy E11.42; E11.65
[2025-03-15 13:06] LABS: Glucose, Whole Blood 143 mg/dL (60-115)
--- OUTSIDE RECORDS SUMMARY | 2025-03-15 14:45 | XMS_ITS | Clinical Summary ---
Author Organization [facility] Address [address] [address] Phone Care Team Providers Care Drafter Electromechanical Name Role Phone Brody Goldberg MD Primary [...] file Insurance MEDICARE PART A & B [facility] MEDICARE SUPPLEMENT MEDICARE PART A & B MEDICARE SUPPLEMENT MEDICARE PART A & B MEDICARE SUPPLEMENT MEDICARE PART A & B Member Subscriber Plan / Payer (Ef fective 2012-Present) Name:Jayy Hawk Member ID:[id number] Relation to Subscriber:Self Name:Jayy Hawk Subscriber ID:[id number] Payer ID:[id number] Group ID:Not on file Type:Medicare Address: [employer] [address] MEDICARE SUPPLEMENT MEDICARE PART A & B [facility] MEDICARE SUPPLEMENT MEDICARE PART A & B MEDICARE SUPPLEMENT MEDICARE PART A & B MEDICARE SUPPLEMENT MEDICARE PART A & B MEDICARE SUPPLEMENT MEDICARE PART A & B [id number] [place] [address] MEDICARE SUPPLEMENT Care Teams Drafter Electromechanical Relationship Specialty Start Date End Date Brody Goldberg MD [address] [place] [address] [place] [address] PCP - General Internal Medicine 07/28/20 Additional Source Comments The information contained in this document represents components of the legal health record. It is not the complete legal health record.[facility]
--- OUTSIDE RECORDS SUMMARY | 2025-03-15 14:46 | XMS_ITS | Patient Health Record ---
Author Organization [facility] Address [address] [place] [id number] Care Team Providers Care Bindery Technician Name Role Phone Brody Goldberg MD Primary Care Provider Armando Hunt Unavailable [phone] Reason For Referral No Information Medications Medication [...] Status W/U Status Risk Notes Problem Diarrhea (00947876) Diarrhea (787.91) Active confirmed Problem Change in bowel habit (08622411) Change in bowel habits (787.99) Active confirmed Problem History of adenomatous polyp of colon (189241308) History of adenomatous polyp of colon (V12.72) Active confirmed Problem Weight loss (502042679) Weight loss (783.21) Active confirmed Plan Of Treatment Future Test Test Name Order Date COLONOSCOPY 09/03/2013 Insurance Providers Payer Name Payer Address Payer Phone Subscriber Number Group Number Insured Name Patient Relationship to Insured Coverage Start Date Coverage End Date MED[place]ARE OF [place] [address] T[place] MENDES [address] [phone] [id number] JENNIFER KEYSHA Self - patient is the insured [facility] [address] [place] [address] [id number] JENNIFER, KEYSHA Self - patient is the insured Medical (General) History Medical History History ICD Code NIDDM hypertension Denies [place],CVA,Lung disease,renal disease Atrial fib Anxiety On Finasteride [...]
--- OUTSIDE RECORDS SUMMARY | 2025-03-15 14:46 | XMS_ITS | Patient Health Record ---
Author Organization Brody Goldberg MD Address [address] [place], [place] [id number] Care Team Providers Care Mold Laminator Name Role Phone Brody Goldberg Primary Care Provider [phone] Allergies Allergen (clinical drug ingredient) Drug/Non Drug Allergy documented on EMR Reaction Allergy Type Onset Date Status metformin Metformin HCl diarrhea Drug Allergy Act enzo lisinopril Lisinopril couigh Drug Allergy Activ e Results Component Value Reference Range Notes Prothrombin Time INR Reviewed date:03/24/2024 12:22:39 PM Interpretation: Performing Lab:[address] [address] Notes/Report: Prothrombin Time 25.6 10.9-12.4 SEC INTERNATIONAL [...] Panel Reviewed date:04/02/2024 05:16:30 PM Interpretation: Performing Lab:[address] [address] Notes/Report: Bilirubin Total 0.5 0.0-1.0 mg/dL Bilirubin Direct 0.2 0.0-0.5 mg/dL Aspartate Amino Transferase 24 5-37 U/L Alanine Aminotransferase 18 0-40 U/L Total Protein 7.3 6.5-8.0 g/dL Albumin Level 4.1 3.5-5.0 g/dL Alkaline Phosphatase 65 39-117 U/L Glucose Fasting Reviewed date:04/02/2024 05:15:41 PM Interpretation: Performing Lab:[facility], [address] [place] [phone] Notes/Report: Glucose Fasting 153 60-99 mg/dL A fasting glucose of 126 mg/dl or greater on more than one occasion is considered diagnostic of diabetes. Lipid Panel with Reflex Reviewed date:04/02/2024 05:16:03 PM Interpretation: Performing Lab:[facility], [address] [place] [phone] Notes/Report: Triglycerides 196 <150 mg/dL Desirable Triglyceride: [...] A1c Reviewed date:04/02/2024 05:16:13 PM Interpretation: Performing Lab:[facility], [address] [place] [phone] Notes/Report: Hemoglobin A1c % 7.1 <6.0 % [...] average glucose, using the formula of the Z7N-[id number] Average Glucose study (ADAG), Diabetes Care, Vol.31,#8, 2007 Prothrombin Time INR Reviewed date:04/09/2024 12:14:10 PM Interpretation: Performing Lab:[facility], [address] [place] [phone] Notes/Report: Prothrombin Time 31.7 10.9-12.4 SEC INTERNATIONAL [...] INR Reviewed date:06/30/2024 11:32:00 AM Interpretation: Performing Lab:[facility], [address] [place] [phone] Notes/Report: Prothrombin Time 35.1 10.9-12.4 SEC INTERNATIONAL [...] INR Reviewed date:07/14/2024 12:30:07 PM Interpretation: Performing Lab:[facility], [address] [place] [phone] Notes/Report: Prothrombin Time 25.2 10.9-12.4 SEC INTERNATIONAL [...] INR Reviewed date:07/28/2024 11:29:24 AM Interpretation: Performing Lab:[facility], [address] [place] [phone] Notes/Report: Prothrombin Time 27.8 10.9-12.4 SEC INTERNATIONAL [...] INR Reviewed date:08/14/2024 07:43:22 AM Interpretation: Performing Lab:[facility], [address] [place] [phone] Notes/Report: Prothrombin Time 21.6 10.9-12.4 SEC INTERNATIONAL [...] INR Reviewed date:08/25/2024 11:30:24 AM Interpretation: Performing Lab:[facility], [address] [place] [phone] Notes/Report: Prothrombin Time 25.1 10.9-12.4 SEC INTERNATIONAL [...] INR Reviewed date:09/08/2024 10:54:20 AM Interpretation: Performing Lab:[facility], [address] [place] [phone] Notes/Report: Prothrombin Time 24.8 10.9-12.4 SEC INTERNATIONAL [...] ff Reviewed date:09/22/2024 12:24:19 PM Interpretation: Performing Lab:[address] [phone] Notes/Report: White Blood Count 8.7 4.8-10.8 X10*3/uL [...] C ORRECTED REPORT C ORRECTED REPORT Comprehensive [place]. Panel Fa st Reviewed date:09/22/2024 12:50:27 PM Interpretation: Performing Lab:[facility], [address] [place] [phone] Notes/Report: Sodium 141 135-145 mmol/L Potassium 4.1 [...] Panel Reviewed date:09/22/2024 12:24:29 PM Interpretation: Performing Lab:[facility], [address] [place] [phone] Notes/Report: Triglycerides 171 <150 mg/dL Desirable Triglyceride: [...] (Free>4and<10) Reviewed date:09/22/2024 12:23:28 PM Interpretation: Performing Lab:[address] [address] Notes/Report: PSA,Total (Free>4and<10) 1.22 0.00-4.00 ng/mL A [...] Random Reviewed date:09/22/2024 12:32:32 PM Interpretation: Performing Lab:[facility], [address] [place] [phone] Notes/Report: Creatinine Urine 102.44 Microalbumin Urine 27.0 Microalbum/Creatinine Ratio Ur 26.3 <30 ug/mg cr Albumin/Creatinine Ratio Reference Ranges: Normal: < 30 ug/mg creatinine Microalbuminuria: 30 - 300 ug/mg creatinine Clinical Albuminuria: > 300 ug/mg creatinine Hemoglobin A1c Reviewed date:09/22/2024 12:32:41 PM Interpretation: Performing Lab:[facility], [address] [place] [phone] Notes/Report: Hemoglobin A1c % 7.0 <6.0 % [...] average glucose, using the formula of the K5V-Zpvgfof Average Glucose study (ADAG), Diabetes Care, Vol.31,#8, 2007 UA ClnCatch+Micro w/rflx Cul t Reviewed date:09/22/2024 12:46:13 PM Interpretation: Performing Lab:[facility], [address] [place] [phone] Notes/Report: Urine, Clean Catch Color Urine Yellow Appearance Urine Turbid PH 5.5 5.0-9.0 Glucose Urine UA Negative Negative mg/dL Urine Blood Negative Negative Specific Stewart - Urine 1.015 1.005-1.025 Urine Protein Negative Neg-Trace mg/dL Urine Ketones Negative Negative mg/dL Nitrite Urine Negative Negative Leukocyte Esterase Urine Negative Negative RBC Urine 0-2 0-2 /HPF WBC Urine 0-5 0-5 /HPF Squamous Epithelial Cell Urine 0-2 0-2 /HPF Bacteria Urine None Seen None Seen Hyaline Casts Urine 0-2 0-2 /LPF Prothrombin Time INR Reviewed date:10/08/2024 05:01:25 PM Interpretation: Performing Lab:[facility], [address] [place] [phone] Notes/Report: Prothrombin Time 28.8 10.9-12.4 SEC INTERNATIONAL [...] INR Reviewed date:10/20/2024 12:40:33 PM Interpretation: Performing Lab:[facility], [address] [place] [phone] Notes/Report: Prothrombin Time 32.9 10.9-12.4 SEC INTERNATIONAL [...] INR Reviewed date:11/03/2024 12:50:48 PM Interpretation: Performing Lab:[facility], [address] [place] [phone] Notes/Report: Prothrombin Time 31.6 10.9-12.4 SEC INTERNATIONAL [...] INR Reviewed date:11/17/2024 12:36:36 PM Interpretation: Performing Lab:[facility], [address] [place] [phone] Notes/Report: Prothrombin Time 30.7 10.9-12.4 SEC INTERNATIONAL [...] INR Reviewed date:12/01/2024 12:22:34 PM Interpretation: Performing Lab:[facility], [address] [place] [phone] Notes/Report: Prothrombin Time 38.8 10.9-12.4 SEC INTERNATIONAL [...] INR Reviewed date:12/17/2024 12:31:54 PM Interpretation: Performing Lab:[facility], [address] [place] [phone] Notes/Report: Prothrombin Time 31.6 10.9-12.4 SEC INTERNATIONAL [...] INR Reviewed date:12/29/2024 12:34:34 PM Interpretation: Performing Lab:[facility], [address] [place] [phone] Notes/Report: Prothrombin Time 27.0 10.9-12.4 SEC INTERNATIONAL [...] INR Reviewed date:01/12/2025 10:51:15 AM Interpretation: Performing Lab:[facility], [address] [place] [phone] Notes/Report: Prothrombin Time 28.6 10.9-12.4 SEC INTERNATIONAL [...] INR Reviewed date:02/02/2025 12:41:44 PM Interpretation: Performing Lab:[facility], [address] [place] [phone] Notes/Report: Prothrombin Time 36.2 11.2-13.5 SEC INTERNATIONAL [...] INR Reviewed date:02/18/2025 12:27:45 PM Interpretation: Performing Lab:[facility], [address] [place] [phone] Notes/Report: Prothrombin Time 40.8 11.2-13.5 SEC INTERNATIONAL [...] INR Reviewed date:03/02/2025 11:06:47 AM Interpretation: Performing Lab:[facility], [address] [place] [phone] Notes/Report: Prothrombin Time 33.9 11.2-13.5 SEC INTERNATIONAL [...] 2.5 - 3.5 Glucose, Whole Blood Reviewed date:03/17/2024 04:28:32 PM Interpretation: Performing Lab:[facility], [address] [place] [phone] Notes/Report: Glucose, Whole Blood 170 60-115 mg/dL METER #: [id number] Testing performed in the [facility] , [address], [place] Hold Red Reviewed date:04/02/2024 05:17:01 PM Interpretation: Performing Lab:[facility], [address] [place] [phone] Notes/Report: Hold Red See Note Specimen held untested for 24 hours; Call to request Chemistry testing. Glucose, Whole Blood Reviewed date:08/11/2024 11:12:03 AM Interpretation: Performing Lab:[facility], [address] [place] [phone] Notes/Report: Glucose, Whole Blood 134 60-115 mg/dL METER #: [id number] Testing performed in the [facility] , [address], [place]. Complete Blood Count Auto Di ff Reviewed date:09/15/2024 04:47:15 PM Interpretation: Performing Lab:[facility], [address] [place] [phone] Notes/Report: White Blood Count 10.6 4.8-10.8 X10*3/uL [...] INR Reviewed date:09/15/2024 12:34:11 PM Interpretation: Performing Lab:[facility], [address] [place] [phone] Notes/Report: Prothrombin Time 22.1 10.9-12.4 SEC INTERNATIONAL [...] Panel Reviewed date:09/15/2024 12:40:51 PM Interpretation: Performing Lab:[facility], [address] [place] [phone] Notes/Report: Sodium 141 135-145 mmol/L Potassium 4.5 [...] date:09/14/2024 01:32:53 PM Interpretation: Performing Lab: Notes/Report: [address] [address] [address] Scan Report Signed Patient: Kristina Rodriguez MR#: [id number] : 1945 Acct:[id number] Age/Sex: 78 / M ADM Date: 09/13/24 Loc: HO.ED Attending Dr: Ordering Physician: Liz Levin Date of Service: 09/13/24 Procedure(s): CT cervical spine wo IV con Accession Number(s): [id number] cc: Brody Goldberg MD; Liz Levin Report Number: [id number]: Total DLP = 503.00 mGy-cm CLINICAL HISTORY: [...] in OV> 09/13/241813 DD/ 12 TD/TT: 09/13/241812 Substance Abuse Nurse: [place] [address] [address] Scan Report Signed Patient: Kristina Rodriguez MR#: [id number] : 1945 Acct:[id number] Age/Sex: 78 / M ADM Date: 09/13/24 Loc: HO.ED Attending Dr: Ordering Physician: Liz Levin Date of Service: 09/13/24 Procedure(s): CT cervical spine wo IV con Accession Number(s): [id number] cc: Brody Goldberg MD; Liz Levin Report Number: [id number]: Total DLP = 503.00 mGy-cm CLINICAL HISTORY: [...] in OV> 09/13/241813 DD/ 12 TD/TT: 09/13/241812 Substance Abuse Nurse: CT head/brain wo con Reviewed date:10/08/2024 01:13:57 PM Interpretation:10-08-2024 Performing Lab: Notes/Report: [address] [address] [address] Scan Report Signed Patient: Kristina Rodriguez MR#: [id number] : 1945 Acct:[id number] Age/Sex: 78 / M ADM Date: 09/13/24 Loc: .ED Attending Dr: Ordering Physician: Liz Levin Date of Service: 09/13/24 Procedure(s): CT head/brain wo IV con Accession Number(s): [id number] cc: Brody Goldberg MD; Liz Levin Report Number: [id number]: Total DLP = 840.00 mGy-cm CLINICAL HISTORY: [...] in OV> 09/13/241807 DD/ 06 TD/TT: 09/13/241806 Substance Abuse Nurse: [address] [address] [address] Scan Report Signed Patient: Kristina Rodriguez MR#: [id number] : 1945 Acct:[id number] Age/Sex: 78 / M ADM Date: 09/13/24 Loc: HO.ED Attending Dr: Ordering Physician: Liz Levin Date of Service: 09/13/24 Procedure(s): CT head/brain wo IV con Accession Number(s): [id number] cc: Brody Goldberg MD; Liz Levin Report Number: [id number]: Total DLP = 840.00 mGy-cm CLINICAL HISTORY: [...] in OV> 09/13/241807 DD/ 06 TD/TT: 09/13/241806 Substance Abuse Nurse: SLIDE REVIEW Reviewed date:09/22/2024 12:30:18 PM Interpretation: Performing Lab:[facility], [address] [place] [phone] Notes/Report: SLIDE REVIEW VERIFIED Glucose, Whole Blood Reviewed date:03/15/2025 01:51:34 PM Interpretation: Performing Lab:[facility], [address] [place] [phone] Notes/Report: Glucose, Whole Blood 143 60-115 mg/dL METER #: [id number] Testing performed [facility] , [address], [place]. Reason For Referral No Information Medications Medication SIG (Take, Route, Frequency, Duration) Notes Start Date End Date Status Warfarin Sodium 5 MG ALTERNATING BETWEEN TAKING 1.5 TABLETS BY MOUTH EVERY DAY AND 2 TABLETS EVERY DAY DIRECTED Active PARoxetine HCl 20 MG TAKE 1 TABLET BY NM UT EVERY MORNING for 90 Active HumaLOG KwikPen 100 UNIT/ML 8 units three times a day Active Pravastatin Sodium 40 MG 1 tablet Orally Once a day Active Lantus SoloStar 100 UNIT/ML 26 units Qpm once a day Acti ve Diprolene AF 0.05 % 1 application Scientific Manager ally Once a day for 30 days [...] day(s) Not-Taking Mupirocin 2 % 1 application Scientific Manager ally Twice a day for 5 day(s) [...] red Fluarix Quadrivalent IM Intramuscular 12/10/2017 Administe luis PPSV23 (Pnemovax) IM Intramuscular 03/24/2018 Administered Fluarix Quadrivalent IM Intramuscular 11/25/2018 Admindarron smith Influenza High Dose Unknown 12/10/2019 Administered Sto [...] Risk Notes Problem Ventricular premature complex (disorder) (229095247) PVC (premature ventricular contraction) (I49.3) Active confirmed Problem 638619335 Thrombocytopenia (D69.6) Active confirmed Problem 692090621 Tubular adenoma (D36.9) Active confirmed Problem 75049086 Nevus (D22.9) Active confirmed Problem Mixed hyperlipidemia (517353643) Mixed hyperlipidemia (E78.2) Active confirmed Problem Paroxysmal atrial fibrillation (551624027) Paroxysmal atrial fibrillation (I48.0) Active confirmed Problem 8082442 Primary insomnia (F51.01) Active confirmed Problem 63708667 Lumbar disc disease (M51.9) Active confirmed Problem 41221330 Essential hypertension (I10) Active confirmed Problem Long-term current use of anticoagulant (184408390) 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) Active confirmed Problem Long-term current use of anticoagulant (587019000) 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6) Active confirmed Problem Benign neoplasm of cerebral meninges (18428283) Meningioma (D32.9) Active confirmed Problem 863105937 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 Problem 91804948 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) Active confirmed Problem 73891235004369261 Pressure injur y of sacral region, unstageable (L89.150) Active confirmed Vital Signs Blood pressure diastolic 62 mm Hg 10/08/2024 Height 73.5 in 10/08/2024 Blood pressure systolic 112 mm Hg 10/08/2024 Weight 256 lbs 10/08/2024 BMI 33.31 kg/m2 10/08/2024 Encounters Encounter Location Date Provider Diagnosis Brody Goldberg MD [address] [place] [id number] 03/24/2024 Brody Mirianardier Paroxysmal atrial fibrillation I48.0 and USP current use of anticoagulant therapy Z79.01 Brody Goldberg MD [address] [place] [address] Drive [address] [place] [id number] 04/02/2024 Brody Mirianardier Mixed hyperlipidemia E78.2 and 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 Brody Goldberg MD [address] [place] [id number] 04/09/2024 Brody Bombardier Paroxysmal atrial fibrillation I48.0 and Encounter for current long-term use of anticoagulants Z79.01 Brody Goldberg MD [address] [place] [id number] 06/30/2024 Brody Bombardier Paroxysmal atrial fibrillation I48.0 and Encounter for current long-term use of anticoagulants Z79.01 Brody Goldberg MD [address] [place] [id number] 07/14/2024 Brody Bombardier Paroxysmal atrial fibrillation I48.0 and Encounter for current long-term use of anticoagulants Z79.01 Brody Goldberg MD [address] [place] [address] [id number] 07/28/2024 Brody Bombardier Paroxysmal atrial fibrillation I48.0 and Encounter for current long-term use of anticoagulants Z79.01 Brody Goldberg MD [address] [place] [address] [id number] 08/11/2024 Brody Bombardier Paroxysmal atrial fibrillation I48.0 and Encounter for current long-term use of anticoagulants Z79.01 Brody Goldberg MD [address] [place] [address] [id number] 08/25/2024 Brody Bombardier Paroxysmal atrial fibrillation I48.0 and Encounter for current long-term use of anticoagulants Z79.01 Brody Goldberg MD [address] [place] [address] [id number] 09/08/2024 Brody Bombardier Paroxysmal atrial fibrillation I48.0 and Encounter for current long-term use of anticoagulants Z79.01 Brody Goldberg MD [address] [place] [address] [id number] 09/22/2024 Brody Goldberg Mixed hyperlipidemia E78.2 ; 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 ; Thrombocytopenia D69.6 and Acute systolic congestive heart failure I50.21 Brody Goldberg MD [address] [place] [address] [id number] 10/08/2024 Brody Bombardier Paroxysmal atrial fibrillation I48.0 and Encounter for current long-term use of anticoagulants Z79.01 Brody Goldberg MD [address] [place] [address] [id number] 10/20/2024 Brodydebbi Velaardier Paroxysmal atrial fibrillation I48.0 and Encounter for current long-term use of anticoagulants Z79.01 Brody Goldberg MD [address] [place] [address] [id number] 11/03/2024 Brody Goldberg Encounter for curren t long-term use of anticoagulants Z79.01 and Paroxysmal atrial fibrillation I48.0 Brody Goldberg MD [address] [place] [id number] 11/17/2024 Brody Goldberg Paroxysmal atrial fibrillation I48.0 ; Encounter for administration of vaccine Z23 and 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 anticoagulant therapy Z79.01 Brody Goldberg MD [address] [place] [id number] 12/01/2024 Brody Bombardier Paroxysmal atrial fibrillation I48.0 and Encounter for current long-term use of anticoagulants Z79.01 Brody Goldberg MD [address] [place] [address] [id number] 12/17/2024 Brody Bombardier Paroxysmal atrial fibrillation I48.0 and Encounter for current long-term use of anticoagulants Z79.01 Brody Goldberg MD [address] [place] [address] [id number] 12/29/2024 Brody Bombardier Paroxysmal atrial fibrillation I48.0 and Encounter for current long-term use of anticoagulants Z79.01 Brody Goldberg MD [address] [place] [address] [id number] 01/12/2025 Brody Bombardier Paroxysmal atrial fibrillation I48.0 and Encounter for current long-term use of anticoagulants Z79.01 Brody Goldberg MD [address] [place] [address] [id number] 02/02/2025 Brody Bombardier Paroxysmal atrial fibrillation I48.0 and Encounter for current long-term use of anticoagulants Z79.01 Brody Goldberg MD [address] [place] [address] [id number] 02/18/2025 Brody Mirianardier terminal operator current us e of anticoagulant Z79.01 and Paroxysmal atrial fibrillation I48.0 Brody Goldberg MD [address] [place] [address] [id number] 03/02/2025 Brody Bombardier Paroxysmal atrial fibrillation I48.0 and Encounter for current long-term use of anticoagulants Z79.01 Brody Goldberg MD [address] [place] [address] [id number] 04/09/2024 Brody Bombardier Paroxysmal atrial fibrillation I48.0 ; 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 ; Pressure injury of sacral region, 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 and Mixed hyperlipidemia E78.2 Brody Goldberg MD [address] [place] [address] [id number] 10/08/2024 Brody Bombardier Meningioma D32.9 ; Paroxysmal atrial fibrillation I48.0 ; 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 ; PVC (premature ventricular contraction) I49.3 ; Essential hypertension I10 ; Mixed hyperlipidemia E78.2 and Acute systolic congestive heart failure I50.21 Brody Goldberg MD [address] [place] [address] [id number] 03/24/2024 Brody Goldberg Pressure sore L89.90 Brody Goldberg MD [address] [place] [address] [id number] 06/18/2024 Brody Goldberg MD [address] [place] [address] [id number] 09/14/2024 Brody Goldberg MD [address] [place] [address] [id number] 06/05/2024 Brody Goldberg MD [address] [place] [address] [id number] 12/15/2024 Brody Goldberg MD [address] [place] [address] [id number] 12/31/2024 Brody Goldberg MD [address] [place] [address] [id number] 01/25/2025 Brody Goldberg Assessments Encounter Date Diagnosis (ICD Code) Assessment Notes Treatment Notes Treatment Clinical Notes Section Notes 03/24/2024 Paroxysmal atrial fibrillation (ICD-10 - I48.0) 03/24/2024 USP current use of anticoagulant therapy (ICD-10 - [...] Paroxysmal atrial fibrillation (ICD-10 - I48.0) 02/18/2025 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 anticoagulant (ICD-10 - [...] last note from dr hernandez neurosurgery at [facility] 10/08/2024 Paroxysmal atrial fibrillation (ICD-10 [...] Paroxysmal atrial fibrillation (ICD-10 - I48.0) 11/17/2024 USP current use of anticoagulant therapy (ICD-10 - [...] I49.3) had monitor recently. have him call parachute cushion installer to get results 09/22/2024 Acute systolic congestive [...] CONTRAST 12/08/2012 Next Appt Details Provider Name:Brodydebbi Parikh ier, 03/16/2025 09:00:00 AM, [address] [place] [address], [address], [phone], Provider Name:Brody reyesr, 04/09/2025 08:15:00 AM, [address] [place] [address], [address], [phone], Provider Name:Brody reyesr, 04/16/2025 09:00:00 AM, [address] [place] [address], [address], [phone], Provider Name:Brody Parikh ier, 10/04/2025 08:00:00 AM, [address] [place] [address], [address], [phone], Provider Name:Brody Samir Velacitlaly reyesr, 10/11/2025 08:30:00 AM, [address] [place] [address], [address], [phone], Insurance Providers Payer Name Payer Address Payer Phone Subscriber Number Group Number Insured Name Patient Relationship to Insured Coverage Start Date Coverage End Date MEDICARE NHIC [address] [place] [address] [id number] Kristina Rodriguez Self - patient is the insured 3 [employer] [place] [address] [place] [phone] [id number] Kristina Rodriguez Self - patient is the [...]
== END 2025-03-15 13:38 | disposition home or self-care (01) ==
LOC: HO.ENCR 12:51
PROVIDERS: PCP Internal Medicine; Visit Provider Physician Assistant
DX: Z13.9 Encounter for screening, unspecified (principal); E11.42 Type 2 diabetes mellitus with diabetic polyneuropathy; Z79.4 Long term (current) use of insulin; E11.65 Type 2 diabetes mellitus with hyperglycemia

== ENCOUNTER → 2025-03-15 12:51 | Outpatient (BNVA) | payer MEDICARE, SELFPAY | PROVIDERS: PCP Internal Medicine; Visit Provider Physician Assistant | DX: E11.42 Type 2 diabetes mellitus with diabetic polyneuropathy (principal); E11.65 Type 2 diabetes mellitus with hyperglycemia; Z79.4 Long term (current) use of insulin | CPT/HCPCS: 82947; 83036; 99212 ==

== ENCOUNTER 2025-03-16 09:00 | Outpatient (REF) | payer MEDICARE, SELFPAY ==
--- OUTSIDE RECORDS SUMMARY | 2020-07-28 10:05 | XMS_ITS | Encounter Summary ---
Author Organization [facility] Address [address] [facility] [address] [place] [address] Phone Care Team Providers Care Online Facilitator Name Role Phone Brody Goldberg MD Primary Care Provider Encounter Details Date Type Department Care Team (Late st Contact Info) Description 07/28/2020 11:05 AM EDT Hospital Encounter [facility] [address] [place] [phone] Luis Manuel Cabello PA [address] [place] [phone] Finding [email or web address] g Social History Tobacco Use Types Packs/Day [...] edited the report originally created by Kassandra Curz. Narrative 07/28/2020 11:45 AM EDT Reason for [...] on filedocumented in this encounter Care Teams Online Facilitator Relationship Specialty Start Date End Date Brody Goldberg MD [address] [place] [address] [place] [address] PCP - General Internal Medicine 07/28/20 documented as of this encounter Additional Source Comments The information contained in this document represents components of the legal health record. It is not the complete legal health record.[facility]
--- OUTSIDE RECORDS SUMMARY | 2024-12-15 02:03 | XMS_ITS ---
Author Organization Brody Goldberg MD Address 10 [facility] [address] [place] [address] [phone] Care Team Providers Care Automatic Log Cut Off Sawyer Name Role Phone Brody Goldberg Primary Care Provider [phone] REASON FOR VISIT Yovanny Rodriguez PT-INR Encounters Encounter Location Date Provider Diagnosis Brody Goldberg MD [address] [place] [address] [place] [address] [phone] 12/15/2024 Brody Goldberg Plan Of Treatment Next Appt Details Provider Name:Brody velarde, 04/09/2025 08:15:00 AM, [address] [place] [address], [address], [phone], Provider Name:Brody Parikh iemiller, 04/16/2025 09:00:00 AM, [address] [place] [address], [address], [phone], Provider Name:Brody velarde, 10/04/2025 08:00:00 AM, [address] [place] [address], [address], [phone], Provider Name:Brody velarde, 10/11/2025 08:30:00 AM, [address] [place] [address], [address], [phone], Progress Notes * Jayy RODRIGUEZ LDOB:1945 ([age] yo M)Acc No.[id number]:12/15/2024 Patient: Jayy ANDRADE :1945 A ge:79 Y S ex:Male Address:[address] [place] [address] * true * Date: Generated for Doron granados/Quang/Yismitting on: 02:18 PM EST
--- OUTSIDE RECORDS SUMMARY | 2024-12-17 04:15 | XMS_ITS ---
Author Organization Brody Goldberg MD Address [address] [place] [phone] Care Team Providers Care Second Worker Name Role Phone Brody Goldberg Primary Care Provider Results Component Value Reference Range Notes Prothrombin Time INR Reviewed date:12/17/2024 12:31:54 PM Interpretation: Performing Lab:[facility], [address] [place] [phone] Notes/Report: Prothrombin Time 31.6 10.9-12.4 SEC INTERNATIONAL [...] Brody Goldberg MD [address] [place] [phone] 12/17/2024 Brody Goldberg Paroxysmal atrial fibrillation I48.0 and Encounter for current long-term use of anticoagulants Z79.01 Assessments Encounter Date Diagnosis (ICD Code) Assessment Notes Treatment Notes Treatment Clinical Notes Section Notes 12/17/2024 Paroxysmal atrial fibrillation (ICD-10 - I48.0) 12/17/2024 Encounter for current long-term use of anticoagulants (ICD-10 - Z79.01) Plan Of Treatment Next Appt Details Provider Name:Brody Parikh syd, 04/09/2025 08:15:00 AM, [address] [place] [address], [address], [phone], Provider Name:Brody Parikh syd, 04/16/2025 09:00:00 AM, [address] [place] [address], [address], [phone], Provider Name:Brody Parikh syd, 10/04/2025 08:00:00 AM, [address] [place] [address], [address], [phone], Provider Name:Brody Parikh syd, 10/11/2025 08:30:00 AM, [address] [place] [address], [address], [phone], Progress Notes * JENNIFER, Jayy LDOB:1945 ([age] yo M)Acc No.[id number]:12/17/2024 Progress Note Patient: Jayy ANDRADE Provider: Breezy Goldberg MD :1945 A ge:79 Y S ex:Male Date:12/17/2024 Address:[address] [place], [place] [phone] Subjective: * Chief Complaints: * 1 . [...] Date: 1 Generated for Doron Paulino/Pauline on: 02:17 PM EST
--- OUTSIDE RECORDS SUMMARY | 2024-12-29 03:15 | XMS_ITS ---
Author Organization Brody Goldberg MD Address [address] [place] [phone] Care Team Providers Care Date Puller Name Role Phone Brody Goldberg Primary Care Provider Results Component Value Reference Range Notes Prothrombin Time INR Reviewed date:12/29/2024 12:34:34 PM Interpretation: Performing Lab:[facility], [address] [place] [phone] Notes/Report: Prothrombin Time 27.0 10.9-12.4 SEC INTERNATIONAL NORM RATIO 2.4 0.9-1.1 [...] Goldberg MD [address] [place] [phone] 12/29/2024 Brody Goldberg Paroxysmal atrial fibrillation I48.0 and Encounter for current long-term use of anticoagulants Z79.01 Assessments Encounter Date Diagnosis (ICD Code) Assessment Notes Treatment Notes Treatment Clinical Notes Section Notes 12/29/2024 Paroxysmal atrial fibrillation (ICD-10 - I48.0) 12/29/2024 Encounter for current long-term use of anticoagulants (ICD-10 - Z79.01) Plan Of Treatment Next Appt Details Provider Name:Brody Parikh syd, 04/09/2025 08:15:00 AM, [address] [place] [address], [address], [phone], Provider Name:Brody Parikh syd, 04/16/2025 09:00:00 AM, [address] [place] [address], [address], [phone], Provider Name:Brody Parikh syd, 10/04/2025 08:00:00 AM, [address] [place] [address], [address], [phone], Provider Name:Brody Parikh syd, 10/11/2025 08:30:00 AM, [address] [place] [address], [address], [phone], Progress Notes * JENNIFER, Jayy LDOB:1945 ([age] yo M)Acc No.[id number]:12/29/2024 Progress Note Patient: Jayy ANDRADE Provider: Breezy Goldberg MD :1945 A ge:79 Y S ex:Male Date:12/29/2024 Address:[address] [place], [place] [phone] Subjective: * Chief Complaints: * 1 . INR. * Medical History: Objective: * Vitals: Assessment: * Assessment: 1. P aroxysmal atrial fibrillation - I48.0 (Primary) 2 . E ncounter for current long-term use of anticoagulants - Z79.01 Plan: * Treatment: 2. E ncounter for current long-term use of anticoagulants L AB: Prothrombin Time INR (Collection Date & Time - 12/29/2024 08:15 AM) * Procedure Codes: 3 6415 VENIPUNCT, [...]
--- OUTSIDE RECORDS SUMMARY | 2024-12-31 09:30 | XMS_ITS ---
Author Organization Brody Goldberg MD Address 10 [facility] [address] [place] [phone] Care Team Providers Care Permaculture Contractor Name Role Phone Brody Goldberg Primary Care Provider REASON FOR VISIT New Refill Request Medications Medication SIG (Take, Route, Fr equency, Duration) Notes Start Date End Date Status PARoxetine HCl 20 MG TAKE 1 TABLET BY MO UTH EVERY MORNING for 90 Active Encounters Encounter Location Date Provider Diagnosis Brody Goldberg MD 10 [facility] [address] [place] [phone] 12/31/2024 Brody Goldberg Plan Of Treatment Medication Medication Name Sig Start Date Stop Date Notes PARoxetine HCl 20 MG TAKE 1 TABLET BY MO UTH EVERY MORNING for 90 Next Appt Details Provider Name:Brody velarde, 04/09/2025 08:15:00 AM, [address] [place] [address], [address], [phone], Provider Name:Brody velarde, 04/16/2025 09:00:00 AM, [address] [place] [address], [address], [phone], Provider Name:Brody velarde, 10/04/2025 08:00:00 AM, [address] [place] [address], [address], [phone], Provider Name:Brody Samir Parikh ier, 10/11/2025 08:30:00 AM, [address], [address], [place], [place], [phone], Progress Notes * Jayy RODRIGUEZ LDOB:1945 ([age] yo M)Acc No.[id number]:12/31/2024 Patient: Jayy ANDRADE :1945 A ge:79 Y S ex:Male Address:[address] [place] [address] * Refills Refill PARoxetine HCl Tablet, 20 MG, 90 Tablet, TAKE 1 TABLET BY MOUTH EVERY MORNING, 90, Refills=3 * true * Date: Generated for Doron granados/Quang/Kyitting on: 02:18 PM EST
--- OUTSIDE RECORDS SUMMARY | 2025-01-12 03:30 | XMS_ITS ---
Author Organization Brody Goldberg MD Address [address] [place] [phone] Care Team Providers Care Lumber Stacker Operator Name Role Phone Brody Goldberg Primary Care Provider Results Component Value Reference Range Notes Prothrombin Time INR Reviewed date:01/12/2025 10:51:15 AM Interpretation: Performing Lab:[facility], [address] [place] [phone] Notes/Report: Prothrombin Time 28.6 10.9-12.4 SEC INTERNATIONAL [...] INR Encounters Encounter Location Date Provider Diagnosis Broyd Goldberg MD [address] [place] [phone] 01/12/2025 Brody Goldberg Paroxysmal atrial fibrillation I48.0 and Encounter for current long-term use of anticoagulants Z79.01 Assessments Encounter Date Diagnosis (ICD Code) Assessment Notes Treatment Notes Treatment Clinical Notes Section Notes 01/12/2025 Paroxysmal atrial fibrillation (ICD-10 - I48.0) 01/12/2025 Encounter for current long-term use of anticoagulants (ICD-10 - Z79.01) Plan Of Treatment Next Appt Details Provider Name:Brody Parikh syd, 04/09/2025 08:15:00 AM, [address] [place] [address], [address] [place] [address], [phone], Provider Name:Brody Parikh syd, 04/16/2025 09:00:00 AM, [address] [place] [address], [place] [address], [place], [place], [phone], Provider Name:Brody Parikh syd, 10/04/2025 08:00:00 AM, [address] [place] [address], [address], [phone], Provider Name:Brody Parikh syd, 10/11/2025 08:30:00 AM, [address] [place] [address], [address], [phone], Progress Notes * JENNIFER, Jayy LDOB:1945 ([age] yo M)Acc No.[id number]:01/12/2025 Progress Note Patient: Jayy ANDRADE Provider: Breezy Goldberg MD :1945 A ge:79 Y S ex:Male Date:01/12/2025 Address:[address] [place], [place] [phone] Subjective: * Chief Complaints: * 1 . [...] Date: 1 Generated for Doron Paulino/Pauline on: 02:19 PM EST
--- OUTSIDE RECORDS SUMMARY | 2025-01-25 00:21 | XMS_ITS ---
Author Organization Brody Goldberg MD Address 10 [facility] [address] [place] [phone] Care Team Providers Care Die Fitter Name Role Phone Brody Goldberg Primary Care Provider REASON FOR VISIT PT-INR Encounters Encounter Location Date Provider Diagnosis Brody Goldberg MD 10 [facility] [address] [place] [phone] 01/25/2025 Brody Goldberg Plan Of Treatment Next Appt Details Provider Name:Brody velarde, 04/09/2025 08:15:00 AM, [address] [place] [address], [address], [phone], Provider Name:Brody Parikh ier, 04/16/2025 09:00:00 AM, [address] [place] [address], [address], [phone], Provider Name:Brody Parikh ier, 10/04/2025 08:00:00 AM, [address] [place] [address], [phone], Provider Name:Brody velarde, 10/11/2025 08:30:00 AM, [address] [place] [address], [phone], Progress Notes * Jayy RODRIGUEZ LDOB:1945 ([age] yo M)Acc No.[id number]:01/25/2025 Patient: Jayy ANDRADE :1945 A ge:79 Y S ex:Male Address:[address] [place] [address] * true * Date: Generated for Doron granados/Quang/Kyitting on: 02:19 PM EST
--- OUTSIDE RECORDS SUMMARY | 2025-02-02 04:00 | XMS_ITS ---
Author Organization Brody Goldberg MD Address [address] [place] [phone] Care Team Providers Care Campus Supervisor Name Role Phone Brody Goldberg Primary Care Provider Results Component Value Reference Range Notes Prothrombin Time INR Reviewed date:02/02/2025 12:41:44 PM Interpretation: Performing Lab:[facility], [address] [place] [phone] Notes/Report: Prothrombin Time 36.2 11.2-13.5 SEC INTERNATIONAL [...] Brody Goldberg MD [address] [place] [phone] 02/02/2025 Brody Goldberg Paroxysmal atrial fibrillation I48.0 and Encounter for current long-term use of anticoagulants Z79.01 Assessments Encounter Date Diagnosis (ICD Code) Assessment Notes Treatment Notes Treatment Clinical Notes Section Notes 02/02/2025 Paroxysmal atrial fibrillation (ICD-10 - I48.0) 02/02/2025 Encounter for current long-term use of anticoagulants (ICD-10 - Z79.01) Plan Of Treatment Next Appt Details Provider Name:Brody Parikh syd, 04/09/2025 08:15:00 AM, [address] [place] [address], [address] [place] [address], [phone], Provider Name:Brody Parikh syd, 04/16/2025 09:00:00 AM, [address] [place] [address], [address], [phone], Provider Name:Brody Parikh syd, 10/04/2025 08:00:00 AM, [address] [place] [address], [address], [phone], Provider Name:Brody Parikh syd, 10/11/2025 08:30:00 AM, [address] [place] [address], [address], [phone], Progress Notes * JENNIFER Jayy LDOB:1945 ([age] yo M)Acc No.[id number]:02/02/2025 Progress Note Patient: Jayy ANDRADE Provider: Breezy Goldberg MD :1945 A ge:79 Y S ex:Male Date:02/02/2025 Address:[address] [place], [place] [phone] Subjective: * Chief Complaints: * 1 . [...] Date: 04/04/2024 Generated for Doron Paulino/Pauline on: 02:17 PM EST
--- OUTSIDE RECORDS SUMMARY | 2025-02-18 03:45 | XMS_ITS ---
Author Organization Brody Goldberg MD Address [address] [place] [phone] Care Team Providers Care Test Puller Name Role Phone Brody Goldberg Primary Care Provider [phone] Results Component Value Reference Range Notes Prothrombin Time INR Reviewed date:02/18/2025 12:27:45 PM Interpretation: Performing Lab:[facility], [address] [place] [phone] Notes/Report: Prothrombin Time 40.8 11.2-13.5 SEC INTERNATIONAL [...] Goldberg MD [address] [place] [phone] 02/18/2025 Brody Goldberg half-way current us e of anticoagulant Z79.01 and Paroxysmal atrial fibrillation I48.0 Assessments Encounter Date Diagnosis (ICD Code) Assessment Notes Treatment Notes Treatment Clinical Notes Section Notes 02/18/2025 half-way current use of anticoagulant (ICD-10 - Z79.01) 02/18/2025 Paroxysmal atrial fibrillation (ICD-10 - I48.0) Plan Of Treatment Next Appt Details Provider Name:Brody Parikh syd, 04/09/2025 08:15:00 AM, [address] [place] [address], Suite [facility], [place], [place], [phone], Provider Name:Brody Parikh syd, 04/16/2025 09:00:00 AM, [address] [place] [address], [place] [address], [place], [place], [phone], Provider Name:Brody Parikh syd, 10/04/2025 08:00:00 AM, [address] [place] [address], [place] [address], [place], [place], [phone], Provider Name:Brody Parikh syd, 10/11/2025 08:30:00 AM, [address] [place] [address], [address], [phone], Progress Notes * JENNIFER Jayy LDOB:1945 ([age] yo M)Acc No.[id number]:02/18/2025 Progress Note Patient: Jayy ANDRADE Provider: Breezy Goldberg MD :1945 A ge:79 Y S ex:Male Date:02/18/2025 Address:[address] [place] [address] Subjective: * Chief Complaints: * 1 . [...] 1 04/21/2024 Generated for Doron granados/Quang/Pauline on: 02:17 PM EST
--- OUTSIDE RECORDS SUMMARY | 2025-03-02 03:45 | XMS_ITS ---
Author Organization Brody Goldberg MD Address [address] [place] [phone] Care Team Providers Care Dropper Tank Storage Name Role Phone Brody Goldberg Primary Care Provider Results Component Value Reference Range Notes Prothrombin Time INR Reviewed date:03/02/2025 11:06:47 AM Interpretation: Performing Lab:[facility], [address] [place] [phone] Notes/Report: Prothrombin Time 33.9 11.2-13.5 SEC INTERNATIONAL NORM RATIO 2.8 0.9-1.1 INTERNATIONAL [...] Brody Goldberg MD [address] [place] [phone] 03/02/2025 Brody Goldberg Paroxysmal atrial fibrillation I48.0 and Encounter for current long-term use of anticoagulants Z79.01 Assessments Encounter Date Diagnosis (ICD Code) Assessment Notes Treatment Notes Treatment Clinical Notes Section Notes 03/02/2025 Paroxysmal atrial fibrillation (ICD-10 - I48.0) 03/02/2025 Encounter for current long-term use of anticoagulants (ICD-10 - Z79.01) Plan Of Treatment Next Appt Details Provider Name:Brody Parikh syd, 04/09/2025 08:15:00 AM, [address] [place] [address], [address] [place] [address], [phone], Provider Name:Brody Parikh syd, 04/16/2025 09:00:00 AM, [address] [place] [address], [address], [phone], Provider Name:Brody Parikh ysd, 10/04/2025 08:00:00 AM, [address] [place] [address], [address], [phone], Provider Name:Brody Parikh syd, 10/11/2025 08:30:00 AM, [address] [place] [address], [address], [phone], Progress Notes * JENNIFER Jayy LDOB:1945 ([age] yo M)Acc No.[id number]:03/02/2025 Progress Note Patient: Jayy ANDRADE Provider: Breezy Goldberg MD :1945 A ge:79 Y S ex:Male Date:03/02/2025 Address:[address] [place], [place] [phone] Subjective: * Chief Complaints: * 1 . INR. * Medical History: Objective: * Vitals: Assessment: * Assessment: 1. P aroxysmal atrial fibrillation - I48.0 (Primary) 2 . E ncounter for current long-term use of anticoagulants - Z79.01 Plan: * Treatment: 2. E ncounter for current long-term use of anticoagulants L AB: Prothrombin Time INR (Collection Date & Time - 03/02/2025 08:45 AM) * Procedure Codes: 3 6415 VENIPUNCT, ROUTINE* * * The named appointment provid er may or may not be the originator of this progress note, and it is not deemed complete until electronically signed by the appointment provider. Sign off status: Pending * Provider: Breezy Goldberg MD Date: 1 05/03/2024 Generated for Doron Paulino/Pauline on: 02:18 PM EST
--- OUTSIDE RECORDS SUMMARY | 2025-03-16 04:00 | XMS_ITS ---
Author Organization Brody Goldberg MD Address [address] [place] [phone] Care Team Providers Care Terminal Worker Name Role Phone Brody Goldberg Primary Care Provider Results Component Value Reference Range Notes Prothrombin Time INR Reviewed date:03/16/2025 11:13:17 AM Interpretation: Performing Lab:[facility], [address] [place] [phone] Notes/Report: Prothrombin Time 35.6 11.2-13.5 SEC INTERNATIONAL NORM RATIO 3.0 0.9-1.1 [...] Brody Goldberg MD [address] [place] [phone] 03/16/2025 Brody Goldberg Encounter for curren t long-term use of anticoagulants Z79.01 and Paroxysmal atrial fibrillation I48.0 Assessments Encounter Date Diagnosis (ICD Code) Assessment Notes Treatment Notes Treatment Clinical Notes Section Notes 03/16/2025 Encounter for current long-term use of anticoagulants (ICD-10 - Z79.01) 03/16/2025 Paroxysmal atrial fibrillation (ICD-10 - I48.0) Plan Of Treatment Next Appt Details Provider Name:Brody Parikh syd, 04/09/2025 08:15:00 AM, [address] [place] [address], [address], [phone], Provider Name:Brody Parikh syd, 04/16/2025 09:00:00 AM, [address] [place] [address], [address], [phone], Provider Name:Brody Parikh syd, 10/04/2025 08:00:00 AM, [address] [place] [address], [address], [phone], Provider Name:Brody Parikh syd, 10/11/2025 08:30:00 AM, [address] [place] [address], [address], [phone], Progress Notes * JENNIFER Jayy LDOB:1945 ([age] yo M)Acc No.[id number]:03/16/2025 Progress Note Patient: Jayy ANDRADE Provider: Breezy Goldberg MD :1945 A ge:79 Y S ex:Male Date:03/16/2025 Address:[address] [place] [address] Subjective: * Chief Complaints: * 1 . INR. * Medical History: Objective: * Vitals: Assessment: * Assessment: 1. E ncounter for current long-term use of anticoagulants - Z79.01 (Primary) 2 . P aroxysmal atrial fibrillation - I48.0 Plan: * Treatment: 2. P aroxysmal atrial fibrillation L AB: Prothrombin Time INR (Collection Date & Time - 03/16/2025 09:00 AM) * * The named appointment provid er may or may not be the originator of this progress note, and it is not deemed complete until electronically signed by the appointment provider. Sign off status: Pending * Provider: Breezy Goldberg MD Date: Generated for Doron granados/Quang/Pauline on: 02:17 PM EST
[2025-03-16 10:59] LABS: INTERNATIONAL NORM RATIO 3.0 (0.9-1.1); Prothrombin Time 35.6 SEC (11.2-13.5)
--- OUTSIDE RECORDS SUMMARY | 2025-03-16 14:17 | XMS_ITS | Clinical Summary ---
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 MEDICARE SUPPLEMENT MEDICARE PART A & B [facility] MEDICARE SUPPLEMENT MEDICARE PART A & B MEDICARE SUPPLEMENT MEDICARE PART A & B MEDICARE SUPPLEMENT MEDICARE PART A & B MEDICARE SUPPLEMENT MEDICARE PART A & B [id number] [place] [address] MEDICARE SUPPLEMENT Care Teams Used Car Lot Attendant Relationship Specialty Start Date End Date Brody Goldberg MD [address] [place] [address] [place] [address] PCP - General Internal Medicine 07/28/20 Additional Source Comments The information contained in this document represents components of the legal health record. It is not the complete legal health record.[facility]
--- OUTSIDE RECORDS SUMMARY | 2025-03-16 14:19 | XMS_ITS | Patient Health Record ---
Author Organization [facility] Address [address] [place] [phone] Care Team Providers Care Sports Specialist Name Role Phone Brody Goldberg MD Primary Care Provider Armando Hunt Unavailable [phone] Reason For Referral No Information Medications Medication [...] Status W/U Status Risk Notes Problem Diarrhea (00204241) Diarrhea (787.91) Active confirmed Problem Change in bowel habit (53692418) Change in bowel habits (787.99) Active confirmed Problem History of adenomatous polyp of colon (723035607) History of adenomatous polyp of colon (V12.72) Active confirmed Problem Weight loss (181220085) Weight loss (783.21) Active confirmed Plan Of Treatment Future Test Test Name Order Date COLONOSCOPY 09/03/2013 Insurance Providers Payer Name Payer Address Payer Phone Subscriber Number Group Number Insured Name Patient Relationship to Insured Coverage Start Date Coverage End Date MED[place]ARE OF [place] [address] [place] [id number] JENNIFER KEYSHA Self - patient is the insured [facility] [address] [place] [address] [id number] JENNIFER, KEYSHA Self - patient is the insured Medical (General) History Medical History History ICD Code NIDDM hypertension Denies AK,CVA,Lung disease,renal disease Atrial fib Anxiety On Finasteride [...]
--- OUTSIDE RECORDS SUMMARY | 2025-03-16 14:19 | XMS_ITS | Patient Health Record ---
Author Organization Brody Goldberg MD Address [address] [place], [place] [id number] Care Team Providers Care Message Clerk Name Role Phone Brody Goldberg Primary Care Provider Allergies Allergen (clinical drug ingredient) Drug/Non Drug Allergy documented on EMR Reaction Allergy Type Onset Date Status metformin Metformin HCl diarrhea Drug Allergy Act enzo lisinopril Lisinopril couigh Drug Allergy Activ e Results Component Value Reference Range Notes Prothrombin Time INR Reviewed date:03/24/2024 12:22:39 PM Interpretation: Performing Lab:[address] [phone] Notes/Report: Prothrombin Time 25.6 10.9-12.4 SEC INTERNATIONAL [...] Panel Reviewed date:04/02/2024 05:16:30 PM Interpretation: Performing Lab:[address] [phone] Notes/Report: Bilirubin Total 0.5 0.0-1.0 mg/dL Bilirubin Direct 0.2 0.0-0.5 mg/dL Aspartate Amino Transferase 24 5-37 U/L Alanine Aminotransferase 18 0-40 U/L Total Protein 7.3 6.5-8.0 g/dL Albumin Level 4.1 3.5-5.0 g/dL Alkaline Phosphatase 65 39-117 U/L Glucose Fasting Reviewed date:04/02/2024 05:15:41 PM Interpretation: Performing Lab:[facility], [address] [place] [phone] Notes/Report: Glucose Fasting 153 60-99 mg/dL A fasting glucose of 126 mg/dl or greater on more than one occasion is considered diagnostic of diabetes. Lipid Panel with Reflex Reviewed date:04/02/2024 05:16:03 PM Interpretation: Performing Lab:[facility], [address] [place] [phone] Notes/Report: Triglycerides 196 <150 mg/dL Desirable Triglyceride: [...] A1c Reviewed date:04/02/2024 05:16:13 PM Interpretation: Performing Lab:[facility], [address] [place] [phone] Notes/Report: Hemoglobin A1c % 7.1 <6.0 % [...] average glucose, using the formula of the O1J-Lsozwoy Average Glucose study (ADAG), Diabetes Care, Vol.31,#8, 2007 Prothrombin Time INR Reviewed date:04/09/2024 12:14:10 PM Interpretation: Performing Lab:[facility], [address] [place] [phone] Notes/Report: Prothrombin Time 31.7 10.9-12.4 SEC INTERNATIONAL [...] INR Reviewed date:06/30/2024 11:32:00 AM Interpretation: Performing Lab:[facility], [address] [place] [phone] Notes/Report: Prothrombin Time 35.1 10.9-12.4 SEC INTERNATIONAL [...] INR Reviewed date:07/14/2024 12:30:07 PM Interpretation: Performing Lab:[facility], [address] [place] [phone] Notes/Report: Prothrombin Time 25.2 10.9-12.4 SEC INTERNATIONAL [...] INR Reviewed date:07/28/2024 11:29:24 AM Interpretation: Performing Lab:[facility], [address] [place] [phone] Notes/Report: Prothrombin Time 27.8 10.9-12.4 SEC INTERNATIONAL [...] INR Reviewed date:08/14/2024 07:43:22 AM Interpretation: Performing Lab:[facility], [address] [place] [phone] Notes/Report: Prothrombin Time 21.6 10.9-12.4 SEC INTERNATIONAL [...] INR Reviewed date:08/25/2024 11:30:24 AM Interpretation: Performing Lab:[facility], [address] [place] [phone] Notes/Report: Prothrombin Time 25.1 10.9-12.4 SEC INTERNATIONAL [...] INR Reviewed date:09/08/2024 10:54:20 AM Interpretation: Performing Lab:[facility], [address] [place] [phone] Notes/Report: Prothrombin Time 24.8 10.9-12.4 SEC INTERNATIONAL [...] ff Reviewed date:09/22/2024 12:24:19 PM Interpretation: Performing Lab:[address] [phone] Notes/Report: White Blood Count 8.7 4.8-10.8 X10*3/uL [...] C ORRECTED REPORT C ORRECTED REPORT Comprehensive [place]. Panel Fa st Reviewed date:09/22/2024 12:50:27 PM Interpretation: Performing Lab:[facility], [address] [place] [phone] Notes/Report: Sodium 141 135-145 mmol/L Potassium 4.1 [...] Panel Reviewed date:09/22/2024 12:24:29 PM Interpretation: Performing Lab:[facility], [address] [place] [phone] Notes/Report: Triglycerides 171 <150 mg/dL Desirable Triglyceride: [...] (Free>4and<10) Reviewed date:09/22/2024 12:23:28 PM Interpretation: Performing Lab:[address] [phone] Notes/Report: PSA,Total (Free>4and<10) 1.22 0.00-4.00 ng/mL A [...] Random Reviewed date:09/22/2024 12:32:32 PM Interpretation: Performing Lab:[facility], [address] [place] [phone] Notes/Report: Creatinine Urine 102.44 Microalbumin Urine 27.0 Microalbum/Creatinine Ratio Ur 26.3 <30 ug/mg cr Albumin/Creatinine Ratio Reference Ranges: Normal: < 30 ug/mg creatinine Microalbuminuria: 30 - 300 ug/mg creatinine Clinical Albuminuria: > 300 ug/mg creatinine Hemoglobin A1c Reviewed date:09/22/2024 12:32:41 PM Interpretation: Performing Lab:[facility], [address] [place] [phone] Notes/Report: Hemoglobin A1c % 7.0 <6.0 % [...] average glucose, using the formula of the G2Z-Zywmudw Average Glucose study (ADAG), Diabetes Care, Vol.31,#8, 2007 UA ClnCatch+Micro w/rflx Cul t Reviewed date:09/22/2024 12:46:13 PM Interpretation: Performing Lab:[facility], [address] [place] [phone] Notes/Report: Urine, Clean Catch Color Urine Yellow Appearance Urine Turbid PH 5.5 5.0-9.0 Glucose Urine UA Negative Negative mg/dL Urine Blood Negative Negative Specific [place] - Urine 1.015 1.005-1.025 Urine Protein Negative Neg-Trace mg/dL Urine Ketones Negative Negative mg/dL Nitrite Urine Negative Negative Leukocyte Esterase Urine Negative Negative RBC Urine 0-2 0-2 /HPF WBC Urine 0-5 0-5 /HPF Squamous Epithelial Cell Urine 0-2 0-2 /HPF Bacteria Urine None Seen None Seen Hyaline Casts Urine 0-2 0-2 /LPF Prothrombin Time INR Reviewed date:10/08/2024 05:01:25 PM Interpretation: Performing Lab:[facility], [address] [place] [phone] Notes/Report: Prothrombin Time 28.8 10.9-12.4 SEC INTERNATIONAL [...] INR Reviewed date:10/20/2024 12:40:33 PM Interpretation: Performing Lab:[facility], [address] [place] [phone] Notes/Report: Prothrombin Time 32.9 10.9-12.4 SEC INTERNATIONAL [...] INR Reviewed date:11/03/2024 12:50:48 PM Interpretation: Performing Lab:[facility], [address] [place] [phone] Notes/Report: Prothrombin Time 31.6 10.9-12.4 SEC INTERNATIONAL [...] INR Reviewed date:11/17/2024 12:36:36 PM Interpretation: Performing Lab:[facility], [address] [place] [phone] Notes/Report: Prothrombin Time 30.7 10.9-12.4 SEC INTERNATIONAL [...] Reviewed date:12/01/2024 12:22:34 PM Interpretation: Performing Lab:[facility], [address] [place] [phone] Notes/Report: Prothrombin Time 38.8 10.9-12.4 SEC INTERNATIONAL [...] INR Reviewed date:12/17/2024 12:31:54 PM Interpretation: Performing Lab:[facility], [address] [place] [phone] Notes/Report: Prothrombin Time 31.6 10.9-12.4 SEC INTERNATIONAL [...] INR Reviewed date:12/29/2024 12:34:34 PM Interpretation: Performing Lab:[facility], [address] [place] [phone] Notes/Report: Prothrombin Time 27.0 10.9-12.4 SEC INTERNATIONAL [...] INR Reviewed date:01/12/2025 10:51:15 AM Interpretation: Performing Lab:[facility], [address] [place] [phone] Notes/Report: Prothrombin Time 28.6 10.9-12.4 SEC INTERNATIONAL [...] INR Reviewed date:02/02/2025 12:41:44 PM Interpretation: Performing Lab:[facility], [address] [place] [phone] Notes/Report: Prothrombin Time 36.2 11.2-13.5 SEC INTERNATIONAL [...] INR Reviewed date:02/18/2025 12:27:45 PM Interpretation: Performing Lab:[facility], [address] [place] [phone] Notes/Report: Prothrombin Time 40.8 11.2-13.5 SEC INTERNATIONAL [...] INR Reviewed date:03/02/2025 11:06:47 AM Interpretation: Performing Lab:[facility], [address] [place] [phone] Notes/Report: Prothrombin Time 33.9 11.2-13.5 SEC INTERNATIONAL [...] 2.5 - 3.5 Prothrombin Time INR Reviewed date:03/16/2025 11:13:17 AM Interpretation: Performing Lab:[facility], [address] [place] [phone] Notes/Report: Prothrombin Time 35.6 11.2-13.5 SEC INTERNATIONAL [...] Blood Reviewed date:03/17/2024 04:28:32 PM Interpretation: Performing Lab:[facility], [address] [place] [phone] Notes/Report: Glucose, Whole Blood 170 60-115 mg/dL METER #: [id number] Testing performed in the [facility] [place] Ramesh Reviewed date:04/02/2024 05:17:01 PM Interpretation: Performing Lab:[facility], [address] [place] [phone] Notes/Report: Hold Red See Note Specimen held untested for 24 hours; Call to request Chemistry testing. Glucose, Whole Blood Reviewed date:08/11/2024 11:12:03 AM Interpretation: Performing Lab:[facility], [address] [place] [phone] Notes/Report: Glucose, Whole Blood 134 60-115 mg/dL METER #: [id number] Testing performed in the [facility] , [address], [facility]. Complete Blood Count Auto Di ff Reviewed date:09/15/2024 04:47:15 PM Interpretation: Performing Lab:[facility], [address] [place] [phone] Notes/Report: White Blood Count 10.6 4.8-10.8 X10*3/uL [...] INR Reviewed date:09/15/2024 12:34:11 PM Interpretation: Performing Lab:[facility], [address] [place] [phone] Notes/Report: Prothrombin Time 22.1 10.9-12.4 SEC INTERNATIONAL [...] Panel Reviewed date:09/15/2024 12:40:51 PM Interpretation: Performing Lab:[facility], [address] [place] [phone] Notes/Report: Sodium 141 135-145 mmol/L Potassium 4.5 [...] date:09/14/2024 01:32:53 PM Interpretation: Performing Lab: Notes/Report: [address] [address] [address] Scan Report Signed Patient: Kristina Rodriguez MR#: [id number] : 1945 Acct:[id number] Age/Sex: 78 / M ADM Date: 09/13/24 Loc: .ED Attending Dr: Ordering Physician: Liz Levin Date of Service: 09/13/24 Procedure(s): CT cervical spine wo IV con Accession Number(s): [id number] cc: Brody Goldberg MD; Liz Levin Report Number: [id number]: Total DLP = 503.00 mGy-cm CLINICAL HISTORY: [...] in OV> 09/13/241813 DD/ 12 TD/TT: 09/13/241812 [employer] 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: [address] [address] [address] Scan Report Signed Patient: Kristina Rodriguez MR#: [id number] : 1945 Acct:[id number] Age/Sex: 78 / M ADM Date: 09/13/24 Loc: .ED Attending Dr: Ordering Physician: Liz Levin Date of Service: 09/13/24 Procedure(s): CT cervical spine wo IV con Accession Number(s): [id number] cc: Brody Goldberg MD; Liz Levin Report Number: [id number]: Total DLP = 503.00 mGy-cm CLINICAL HISTORY: [...] in OV> 09/13/241813 DD/ 12 TD/TT: 09/13/241812 Food 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: CT head/brain wo con Reviewed date:10/08/2024 01:13:57 PM Interpretation:10-08-2024 Performing Lab: Notes/Report: [address] [address] [address] Scan Report Signed Patient: Kristina Rodriguez MR#: [id number] : 1945 Acct:[id number] Age/Sex: 78 / M ADM Date: 09/13/24 Loc: HO.ED Attending Dr: Ordering Physician: Liz Levin Date of Service: 09/13/24 Procedure(s): CT head/brain wo IV con Accession Number(s): [id number] cc: Brody Goldberg MD; Liz Levin Report Number: [id number]: Total DLP = 840.00 mGy-cm CLINICAL HISTORY: [...] in OV> 09/13/241807 DD/ 06 TD/TT: 09/13/241806 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: [place] [address] [address] Scan Report Signed Patient: Kristina Rodriguez MR#: [id number] : 1945 Acct:[id number] Age/Sex: 78 / M ADM Date: 09/13/24 Loc: HO.ED Attending Dr: Ordering Physician: Liz Levin Date of Service: 09/13/24 Procedure(s): CT head/brain wo IV con Accession Number(s): [id number] cc: Brody Goldberg MD; Liz Levin Report Number: [id number]: Total DLP = 840.00 mGy-cm CLINICAL HISTORY: [...] in OV> 09/13/241807 DD/ 06 TD/TT: 09/13/241806 [employer] 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: SLIDE REVIEW Reviewed date:09/22/2024 12:30:18 PM Interpretation: Performing Lab:[facility], [address] [place] [phone] Notes/Report: SLIDE REVIEW VERIFIED Glucose, Whole Blood Reviewed date:03/15/2025 01:51:34 PM Interpretation: Performing Lab:[facility], [address] [place] [phone] Notes/Report: Glucose, Whole Blood 143 60-115 mg/dL METER #: [id number] Testing performed in the [facility] , [address], [facility]. Reason For Referral No Information Medications Medication SIG (Take, Route, Frequency, Duration) Notes Start Date End Date Status Warfarin Sodium 5 MG ALTERNATING BETWEEN TAKING 1.5 TABLETS BY MOUTH EVERY DAY AND 2 TABLETS EVERY DAY DIRECTED Active PARoxetine HCl 20 MG TAKE 1 TABLET BY [facility] EVERY MORNING for 90 Active HumaLOG KwikPen 100 UNIT/ML 8 units three times a day Active Pravastatin Sodium 40 MG 1 tablet Orally Once a day Active Lantus SoloStar 100 UNIT/ML 26 units Qpm once a day Acti ve Diprolene AF 0.05 % 1 application Public Service Director ally Once a day for 30 days [...] day(s) Not-Taking Mupirocin 2 % 1 application Public Service Director ally Twice a day for 5 day(s) 03/28/2021 Active Ativan 0.5 MG 1 tablet at bedtime as needed Orally Once a day for 30 days 06/21/2011 Not-Taking Jardiance 25 MG 1 tablet Orally Once a day Not-Taking Losartan Potassium-HCTZ 100-25 MG TAKE 1 TABLET BY MOUTH EVERY DAY for 90 Active Immunizations Vaccine Route Administration Date Status Commrg nts PPSV23 (Pnemovax) IM Intramuscular 11/13/2012 Administered [...] Risk Notes Problem Ventricular premature complex (disorder) (280978032) PVC (premature ventricular contraction) (I49.3) Active confirmed Problem 290751408 Thrombocytopenia (D69.6) Active confirmed Problem 009878839 Tubular adenoma (D36.9) Active confirmed Problem 20421235 Nevus (D22.9) Active confirmed Problem Mixed hyperlipidemia (961264687) Mixed hyperlipidemia (E78.2) Active confirmed Problem Paroxysmal atrial fibrillation (765332620) Paroxysmal atrial fibrillation (I48.0) Active confirmed Problem 2872272 Primary insomnia (F51.01) Active confirmed Problem 29759696 Lumbar disc disease (M51.9) Active confirmed Problem 70893116 Essential hypertension (I10) Active confirmed Problem Long-term current use of anticoagulant (918182401) terminologist current use of anticoagulant (Z79.01) Active confirmed Problem Long-term current use of anticoagulant (879021401) terminologist current use of anticoagulant therapy (Z79.01) Active confirmed Problem 14836075 Type 2 diabetes mellitus with 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) Active confirmed Problem 080626068 Acute systolic congestive heart failure (I50.21) Active confirmed Problem Pressure injury (morphologic abnormality) (8622196662) Pressure sore (L89.90) Active confirmed Problem Long-term current use of anticoagulant (823963136) Encounter for current long-term use of anticoagulants (Z79.) Active confirmed Problem 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) Abnormal platelets (D69.1) Active confirmed Problem 622937096 Temporary low platelet count (D69.6) Active confirmed Problem Benign neoplasm of cerebral meninges (48773772) Meningioma (D32.9) Active confirmed Problem 319711525 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 Problem 29595400 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) Active confirmed Problem 24108248533727860 Pressure injur y of sacral region, unstageable (L89.150) Active confirmed Vital Signs Blood pressure diastolic 62 mm Hg 10/08/2024 Height 73.5 in 10/08/2024 Blood pressure systolic 112 mm Hg 10/08/2024 Weight 256 lbs 10/08/2024 BMI 33.31 kg/m2 10/08/2024 Encounters Encounter Location Date Provider Diagnosis Brody Goldberg MD [address] [place] [id number] 03/24/2024 Brody Goldberg Paroxysmal atrial fibrillation I48.0 and prison current use of anticoagulant therapy Z79.01 Brody Goldberg MD [address] [place] [id number] 04/02/2024 Brody Goldberg Mixed hyperlipidemia E78.2 and 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 Brody Goldberg MD [address] [place] [id number] 04/09/2024 Brody Bombardier Paroxysmal atrial fibrillation I48.0 and Encounter for current long-term use of anticoagulants Z79.01 Brody Goldberg MD [address] [place] [address] [id number] 06/30/2024 Brody Bombardier Paroxysmal atrial fibrillation I48.0 and Encounter for current long-term use of anticoagulants Z79.01 Brody Goldberg MD [address] [place] [address] [id number] 07/14/2024 Brody Bombardier Paroxysmal atrial fibrillation I48.0 and Encounter for current long-term use of anticoagulants Z79.01 Brody Goldberg MD [address] [place] [address] [id number] 07/28/2024 Brody Bombardier Paroxysmal atrial fibrillation I48.0 and Encounter for current long-term use of anticoagulants Z79.01 Brody Goldberg MD [address] [place] [address] [id number] 08/11/2024 Brody Bombardier Paroxysmal atrial fibrillation I48.0 and Encounter for current long-term use of anticoagulants Z79.01 Brody Goldberg MD [address] [place] [id number] 08/25/2024 Brody Bombardier Paroxysmal atrial fibrillation I48.0 and Encounter for current long-term use of anticoagulants Z79.01 Brody Goldberg MD [address] [place] [address] [id number] 09/08/2024 Brody Bombardier Paroxysmal atrial fibrillation I48.0 and Encounter for current long-term use of anticoagulants Z79.01 Brody Goldberg MD [address] [place] [address] [id number] 09/22/2024 Brody Bombardier Mixed hyperlipidemia E78.2 ; 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 ; Thrombocytopenia D69.6 and Acute systolic congestive heart failure I50.21 Brody Goldberg MD [address] [place] [address] [id number] 10/08/2024 Brody Bombardier Paroxysmal atrial fibrillation I48.0 and Encounter for current long-term use of anticoagulants Z79.01 Brody Goldberg MD [address] [place] [address] [id number] 10/20/2024 Brody Bombardier Paroxysmal atrial fibrillation I48.0 and Encounter for current long-term use of anticoagulants Z79.01 Brody Goldberg MD [address] [place] [address] [id number] 11/03/2024 Brody Goldberg Encounter for curren t long-term use of anticoagulants Z79.01 and Paroxysmal atrial fibrillation I48.0 Brody Goldberg MD [address] [place] [address] [id number] 11/17/2024 Brodydebbi Velaardier Paroxysmal atrial fibrillation I48.0 ; Encounter for administration of vaccine Z23 and prison current use of anticoagulant therapy Z79.01 Brody Goldberg MD [address] [place] [address] [id number] 12/01/2024 Brodydebbi Velaardier Paroxysmal atrial fibrillation I48.0 and Encounter for current long-term use of anticoagulants Z79.01 Brody Goldberg MD [address] [place] [address] [id number] 12/17/2024 Brody Velaardier Paroxysmal atrial fibrillation I48.0 and Encounter for current long-term use of anticoagulants Z79.01 Brody Goldberg MD [address] [place] [address] [id number] 12/29/2024 Brodydebbi Velaardier Paroxysmal atrial fibrillation I48.0 and Encounter for current long-term use of anticoagulants Z79.01 Brody Goldberg MD [address] [place] [address] [id number] 01/12/2025 Brodydebbi Velaardier Paroxysmal atrial fibrillation I48.0 and Encounter for current long-term use of anticoagulants Z79.01 Brody Goldberg MD [address] [place] [address] [id number] 02/02/2025 Brodydebbi Velaardier Paroxysmal atrial fibrillation I48.0 and Encounter for current long-term use of anticoagulants Z79.01 Brody Goldberg MD [address] [place] [address] [id number] 02/18/2025 Brody Goldberg prison current us e of anticoagulant Z79.01 and Paroxysmal atrial fibrillation I48.0 Brody Goldberg MD [address] [place] [address] [id number] 03/02/2025 Brody Goldberg Paroxysmal atrial fibrillation I48.0 and Encounter for current long-term use of anticoagulants Z79.01 Brody Goldberg MD [address] [place] [address] [id number] 03/16/2025 Brody Goldberg Encounter for curren t long-term use of anticoagulants Z79.01 and Paroxysmal atrial fibrillation I48.0 Brody Goldberg MD [address] [place] [address] [id number] 04/09/2024 Brody Goldberg Paroxysmal atrial fibrillation I48.0 ; 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 ; Pressure injury of sacral region, 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 and Mixed hyperlipidemia E78.2 Brody Goldberg MD [address] [place] [address] [id number] 10/08/2024 Brody Goldberg Meningioma D32.9 ; Paroxysmal atrial fibrillation I48.0 ; 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 ; PVC (premature ventricular contraction) I49.3 ; Essential hypertension I10 ; Mixed hyperlipidemia E78.2 and Acute systolic congestive heart failure I50.21 Brody Goldberg MD [address] [place] [address] [id number] 03/24/2024 Brody Goldberg Pressure sore L89.90 Brody Goldberg MD [address] [place] [address] [id number] 06/18/2024 Brody Goldberg MD [address] [place] [address] [id number] 09/14/2024 Brody Goldberg MD [address] [place] [address] [id number] 06/05/2024 Brody Goldberg MD [address] [place] [address] [id number] 12/15/2024 Brody Goldberg MD [address] [place] [address] [id number] 12/31/2024 Brody Goldberg MD [address] [place] [address] [id number] 01/25/2025 Brody Goldberg Assessments Encounter Date Diagnosis (ICD Code) Assessment Notes Treatment Notes Treatment Clinical Notes Section Notes 03/24/2024 Paroxysmal atrial fibrillation (ICD-10 - I48.0) 03/24/2024 prison current use of anticoagulant therapy (ICD-10 - [...] Paroxysmal atrial fibrillation (ICD-10 - I48.0) 02/18/2025 terminologist current use of anticoagulant (ICD-10 - Z79.01) 03/02/2025 Paroxysmal atrial fibrillation (ICD-10 - I48.0) 03/16/2025 Encounter for current long-term use of [...] last note from dr hernandez neurosurgery at [facility] 10/08/2024 Paroxysmal atrial fibrillation (ICD-10 - I48.0) [...] Paroxysmal atrial fibrillation (ICD-10 - I48.0) 11/17/2024 terminologist current use of anticoagulant therapy (ICD-10 - [...] 03/16/2025 Paroxysmal atrial fibrillation (ICD-10 - I48.0) 04/09/2024 Pressure injury of sacral region, unstageable (ICD-10 - L89.150) 10/08/2024 Type 2 diabetes mellitus with diabetic neuropathy (ICD-10 - E11.40) doing well, will continue current regiment 09/22/2024 Thrombocytopenia (ICD-10 - D69.6) 04/09/2024 Mixed hyperlipidemia (ICD-10 - E78.2) stable, will continue current regiment 10/08/2024 PVC (premature ventricular contraction) (ICD-10 - I49.3) had monitor recently. have him call pheresis nurse to get results 09/22/2024 Acute systolic congestive [...] Details Provider Name:Brody velarde, 04/09/2025 08:15:00 AM, [address] [place] [address] Drive, [address], [place], [place], [phone], Provider Name:Brody velarde, 04/16/2025 09:00:00 AM, [address] [place] [address] Drive, [address], [place], [place], [id number], Provider Name:Brody velarde, 10/04/2025 08:00:00 AM, [address], [address], [place], [place], [id number], Provider Name:Brodydebbi reyesr, 10/11/2025 08:30:00 AM, [address], [address], [place], [id number], Insurance Providers Payer Name Payer Address Payer Phone Subscriber Number Group Number Insured Name Patient Relationship to Insured Coverage Start Date Coverage End Date [employer] [address] [place] [address] [id number] Kristina Rodriguez Self - patient is the insured 3 [employer] [place] [address] [place] [phone] [id number] Kristina Rodriguez Self - patient is the [...]
== END 2025-03-16 09:01 | disposition home or self-care (01) ==
LOC: HO.LNP 09:00
PROVIDERS: Visit Provider Internal Medicine
DX: I48.0 Paroxysmal atrial fibrillation (principal); Z79.01 Long term (current) use of anticoagulants
CPT/HCPCS: 85610